=== PATIENT | female | born 1980 | race Caucasian/White ===

== ENCOUNTER 2019-12-11 09:03 | Outpatient (CLI) | payer OTHER, SELFPAY ==
--- NOTE | 2019-12-11 11:00 | NEURO_ITS ---
Patient Number: [id number] Impression: # Complains of numbness of arms and legs. # Normal nerve conduction study of upper and lower extremities. # Normal needle/EMG exam. # Clinical correlation recommended and possibility of higher involvement needs to be ruled out Nerve Conduction Studies Anti Sensory Summary Table Stim Site NR Peak (ms) P-T Amp (?V) Site1 Site2 Delta-P (ms) Dist (cm) Tomas (m/s) Left Median Anti Sensory (2-3nd Digit) Wrist 2.8 83.4 Wrist 2-3nd Digit 2.8 14.0 50 Wrist 2.6 92.7 Wrist 2-3nd Digit 2.8 14.0 50 Right Median Anti Sensory (2-3nd Digit) Wrist 2.6 57.9 Wrist 2-3nd Digit 2.6 14.0 54 Wrist 2.6 91.0 Wrist 2-3nd Digit 2.6 14.0 54 Left Radial Anti Sensory (Base 1st Digit) Wrist 2.1 23.9 Wrist Base 1st Digit 2.1 0.0 Right Radial Anti Sensory (Base 1st Digit) Wrist 2.3 28.1 Wrist Base 1st Digit 2.3 0.0 Left Sup Fibular Anti Sensory (Ant Lat Mall) 14 cm 3.4 40.1 14 cm Ant Lat Mall 3.4 16.0 47 Right Sup Fibular Anti Sensory (Ant Lat Mall) 14 cm 2.5 10.4 14 cm Ant Lat Mall 2.5 16.0 64 Left Sural Anti Sensory (Lat Mall) Calf 3.9 13.0 Calf Lat Mall 3.9 16.0 41 Right Sural Anti Sensory (Lat Mall) Calf 3.2 45.5 Calf Lat Mall 3.2 16.0 50 Left Ulnar Anti Sensory (5th Digit) Wrist 2.4 78.7 Wrist 5th Digit 2.4 14.0 58 Right Ulnar Anti Sensory (5th Digit) Wrist 2.3 49.9 Wrist 5th Digit 2.3 14.0 61 Motor Summary Table Stim Site NR Onset (ms) O-P Amp (mV) Site1 Site2 Delta-0 (ms) Dist (cm) Tomas (m/s) Left Median Motor (Abd Poll Brev) Wrist 2.6 3.9 Elbow Wrist 4.3 25.0 58 Elbow 6.9 3.9 Right Median Motor (Abd Poll Brev) Wrist 2.4 2.9 Elbow Wrist 4.2 25.0 60 Elbow 6.6 5.3 Left Peroneal Motor (Vastus Med) Ankle 4.7 2.5 Popit Ankle 6.8 33.0 49 Popit 11.5 2.4 Right Peroneal Motor (Vastus Med) Ankle 4.0 4.0 Popit Ankle 6.3 33.0 52 Popit 10.3 3.6 Left Tibial Motor (Abd Moore Brev) Ankle 4.4 7.6 Knee Ankle 7.6 35.0 46 Knee 12.0 6.0 Right Tibial Motor (Abd Moore Brev) Ankle 4.2 15.1 Knee Ankle 7.1 36.0 51 Knee 11.3 12.4 Left Ulnar Motor (Abd Dig Minimi) Wrist 2.5 6.5 A Elbow Wrist 4.4 26.0 59 A Elbow 6.9 5.3 Right Ulnar Motor (Abd Dig Minimi) Wrist 2.5 6.4 A Elbow Wrist 4.5 26.0 58 A Elbow 7.0 5.0 F Wave Studies NR F-Lat (ms) L-R F-Lat (ms) Left Median (Mrkrs) (Abd Poll Brev) 24.84 0.68 Right Median (Mrkrs) (Abd Poll Brev) 24.15 0.68 Left Peroneal (Mrkrs) (EDB) 41.38 2.78 Right Peroneal (Mrkrs) (EDB) 44.16 2.78 Left Tibial (Mrkrs) (Abd Hallucis) 42.43 0.18 Right Tibial (Mrkrs) (Abd Hallucis) 42.61 0.18 Left Ulnar (Mrkrs) (Abd Dig Min) 23.83 0.82 Right Ulnar (Mrkrs) (Abd Dig Min) 24.65 0.82 EMG Side Muscle Nerve Root Ins Act Fibs Amp Dur Recrt Comment Right 1stDorInt Ulnar C8-T1 Nml Nml Nml Nml Nml Right Ext Indicis Radial (Post Int) C7-8 Nml Nml Nml Nml Nml Right Ext Digitorum Radial (Post Int) C7-8 Nml Nml Nml Nml Nml Right BrachioRad Radial C5-6 Nml Nml Nml Nml Nml Right PronatorTeres Median C6-7 Nml Nml Nml Nml Nml Right Abd Poll Brev Median C8-T1 Nml Nml Nml Nml Nml Right AntTibialis D
== END 2019-12-11 09:04 | disposition home or self-care (01) ==
PROVIDERS: PCP Internal Medicine Gastroenterology; Visit Provider Psychiatry & Neurology Neurology
DX: R25.2 Cramp and spasm (principal)
CPT/HCPCS: 95886; 95913

== ENCOUNTER 2023-03-20 15:34 | Outpatient (CLI) | payer OTHER, SELFPAY ==
[2023-03-20 16:24] LABS: Basophils Absolute Auto 0.1 K/mm3 (0.0-0.1); Basophils Percent Auto 1.2 % (0.2-1.2); Eosinophils Absolute Auto 0.1 K/mm3 (0-0.3); Eosinophils Percent Auto 1.2 % (0-4.4); Hematocrit 44.3 % (37.0-47.0); Hemoglobin 14.7 g/dL (12.0-15.0); Immature Granulocyte Absolute 0.02 K/mm3 (0.00-0.031); Immature Granulocyte Percent A 0.3 % (0-0.5); Lymphocytes Absolute Auto 1.95 K/mm3 (0.9-3.2); Lymphocytes Percent Auto 28.6 % (18.3-44.2); Mean Corpuscular HGB Conc 33.2 g/dl (32-36); Mean Corpuscular Hemoglobin 28.9 pg (26-34); Mean Corpuscular Volume 87.2 fl (80-100); Mean Platelet Volume 10.3 fl (7.4-10.4); Monocytes Absolute Auto 0.5 K/mm3 (0.1-0.6); Monocytes Percent Auto 6.9 % (2.6-8.5); Neutrophils Absolute Auto 4.2 K/mm3 (1.3-6.7); Neutrophils Percent Auto 61.8 % (45.5-73.1); Platelet Count Result 284 k/mm3 (150-375); Red Blood Count 5.08 M/mm3 (4.2-5.4); Red Cell Distribution Width 11.6 % (11.5-14.5); White Blood Count 6.8 K/mm3 (4.5-10.0)
[2023-03-20 16:37] LABS: Alanine Aminotransferase 24 U/L (6-35); Albumin Level 4.6 g/dL (3.5-5.1); Alkaline Phosphatase 72 U/L (38-126); Anion Gap 6 mmol/L (8-16); Aspartate Amino Transferase 24 U/L (14-36); Bilirubin,Total 0.5 mg/dL (0.2-1.3); Blood Urea Nitrogen 13 mg/dL (7-17); Carbon Dioxide 30 mmol/L (22-30); Chloride 103 mmol/L (98-107); Estimated Glomerular Filt Rate 60; Glucose 101 mg/dL (65-110); Potassium 4.3 mmol/L (3.4-5.0); Sodium 139 mmol/L (137-145)
[2023-03-20 17:42] LABS: Folic Acid 4.4 ng/mL (2.76->20)
[2023-03-20 18:20] LABS: Iron 96 ug/dL (37-170)
[2023-03-20 18:30] LABS: Percent Iron Saturation 30 % (20-50)
[2023-03-23 10:37] LABS: Methylmalonic Acid 115 nmol/L (87-318)
[2023-03-24 18:05] LABS: Soluble Transferrin Receptor 0.98 mg/L (0.76-1.76)
== END 2023-03-20 15:35 | disposition home or self-care (01) ==
PROVIDERS: Nurse Practitioner Family; PCP Internal Medicine Gastroenterology; Visit Provider Internal Medicine Hematology & Oncology
DX: D50.8 Other iron deficiency anemias (principal)
CPT/HCPCS: 36415; 80053; 82607; 82728; 82746; 83540; 83550; 83921; 84238; 85025

== ENCOUNTER 2023-04-10 12:46 | Outpatient (CLI) | payer OTHER, SELFPAY ==
--- NOTE | ~2023-04-10 | MMUS_ITS ---
EXAMINATION: MM diagnostic isiah BI w mikie, US breast RT limited HISTORY: Multiple cysts of the breast with pain in the upper outer quadrant of the right breast TECHNIQUE: Craniocaudal, mediolateral, and mediolateral oblique 3-D tomosynthesis images of the karis ts were performed and synthetic 2-D images were generated. CAD analysis was submitted and interpreted . High resolution limited right breast ultrasound was performed. COMPARISON: 12/14/2022 BREAST PARENCHYMAL COMPOSITION: The breasts are heterogeneously dense, which may obscure small masses . FINDINGS: MAMMOGRAPHIC FINDINGS: Multiple bilateral breast masses are again seen which have the appearance of a waxing and waning cyst s. Multiple masses are present in the area of palpable concern in the right breast. One is a 4.2 cm s imilar appearing cyst. There is a 1.5 x 1.1 cm obscured, equal density mass in the posterior third of the outer breast at the 9:00 location adjacent to the large cyst which appears new since the compari son examination. In addition, obscured, oval, equal density mass lesion posterior third breast 5 cm ULTRASOUND: There is a 3.8 cm cyst at the 10:00 location, 3 cm from the nipple. An adjacent 1.5 cm cyst is noted at the 10:00 location, 5 cm from the nipple. There are adjacent cysts at the 10:00 location 7 cm from the nipple measuring 1.7 cm and 1.0 cm. IMPRESSION: 1. Multiple cysts of the breasts including enlarging cysts of the upper outer right breast correspond ing to area of pain. Further evaluation at this time should be based on clinical assessment. Continue d follow-up physical examination is recommended. 2. Recommend routine screening mammography in one year. BI-RADS Category 2: Benign finding(s). Reviewed, dictated and finalized at location A. GER COPY IMPRESSION: 1. Multiple cysts of the breasts including enlarging cysts of the upper outer r ight breast corresponding to area of pain. Further evaluation at this time shou ld be based on clinical assessment. Continued follow-up physical examination is recommended. 2. Recommend routine screening mammography in one year. BI-RADS Category 2: Benign finding(s).
== END 2023-04-10 12:47 | disposition home or self-care (01) ==
PROVIDERS: PCP Internal Medicine Gastroenterology; Visit Provider Nurse Practitioner Family
DX: N60.12 Diffuse cystic mastopathy of left breast (principal); N60.11 Diffuse cystic mastopathy of right breast
CPT/HCPCS: 76642; 77062; 77066; G0279

== ENCOUNTER 2023-06-07 13:14 | Outpatient (CLI) | payer OTHER, SELFPAY ==
[2023-06-07 13:34] LABS: Basophils Absolute Auto 0.1 K/mm3 (0.0-0.1); Eosinophils Absolute Auto 0.1 K/mm3 (0-0.3); Eosinophils Percent Auto 1.2 % (0-4.4); Hematocrit 44.4 % (37.0-47.0); Hemoglobin 15.3 g/dL (12.0-15.0); Immature Granulocyte Absolute 0.05 K/mm3 (0.00-0.031); Immature Granulocyte Percent A 0.6 % (0-0.5); Lymphocytes Absolute Auto 1.98 K/mm3 (0.9-3.2); Lymphocytes Percent Auto 24.5 % (18.3-44.2); Mean Corpuscular HGB Conc 34.5 g/dl (32-36); Mean Corpuscular Volume 87.1 fl (80-100); Monocytes Absolute Auto 0.5 K/mm3 (0.1-0.6); Monocytes Percent Auto 6.3 % (2.6-8.5); Neutrophils Absolute Auto 5.4 K/mm3 (1.3-6.7); Neutrophils Percent Auto 66.4 % (45.5-73.1); Platelet Count Result 367 k/mm3 (150-375); Red Cell Distribution Width 12.7 % (11.5-14.5); White Blood Count 8.1 K/mm3 (4.5-10.0)
[2023-06-07 18:41] LABS: Anion Gap 7 mmol/L (8-16); Blood Urea Nitrogen 12 mg/dL (7-17); Calcium 9.7 mg/dL (8.4-10.2); Carbon Dioxide 27 mmol/L (22-30); Chloride 105 mmol/L (98-107); Estimated Glomerular Filt Rate > 60; Glucose 108 mg/dL (65-110); Potassium 4.3 mmol/L (3.4-5.0); Sodium 139 mmol/L (137-145)
[2023-06-07 18:44] LABS: Iron 73 ug/dL (37-170)
[2023-06-07 18:57] LABS: Percent Iron Saturation 21 % (20-50)
[2023-06-07 19:46] LABS: Folic Acid 5.9 ng/mL (2.76->20)
== END 2023-06-07 13:15 | disposition home or self-care (01) ==
LOC: ANHLAB 13:15
PROVIDERS: Nurse Practitioner Family; PCP Internal Medicine Gastroenterology; Visit Provider Internal Medicine Hematology & Oncology
DX: R79.0 Abnormal level of blood mineral (principal); D64.9 Anemia, unspecified
CPT/HCPCS: 36415; 80048; 82607; 82728; 82746; 83540; 83550; 85025

== ENCOUNTER 2023-07-20 18:44 | Emergency (ER) | payer OTHER, SELFPAY ==
[2023-07-20] VITALS (7 sets, daily range): BP systolic 108–138; BP diastolic 79–117; PULSE 77–101; RESP 9–19; TEMP 36.7; O2SAT 96–99
--- NOTE | ~2023-07-20 | CT_ITS ---
EXAMINATION: CT abdomen pelvis w con DATE: 07/20/2023 21:07 INDICATION: Epigastric abdominal pain. TECHNIQUE: Computed tomography (CT) of the abdomen and pelvis was performed with 100 mL Omnipaque 350 intravenous contrast. Automated exposure control and iterative reconstruction technique were employe d. The dose-length product was 219.45 mGy-cm. COMPARISON: None. FINDINGS: The visualized portions of the lung bases demonstrate mild atelectasis in right middle lobe . No pleural effusion. The heart size is normal. No pericardial effusion. The liver and spleen are no rmal. There are changes of cholecystectomy. The pancreas, adrenal glands, and kidneys are normal. The re are no dilated loops of bowel. The appendix is normal. There is liquid stool in the colon suggesti ng diarrhea. There are no pathologically enlarged lymph nodes. There is no free intraperitoneal fluid . There is moderate lower lumbar spondylosis. IMPRESSION: 1. No specific etiology for the patient's symptoms. Reviewed, dictated and finalized at location E.
[2023-07-20] MEDS: SODIUM CHLORIDE 0.9% IV 2,000 ML 999 ML IV CONT (20:03)
[2023-07-20] MEDS: ONDANSETRON INJ 4 MG/2 ML VIAL IV PUSH (20:04)
[2023-07-20 20:05] LABS: Basophils Absolute Auto 0.1 K/mm3 (0.0-0.1); Basophils Percent Auto 1.1 % (0.2-1.2); Eosinophils Percent Auto 0.4 % (0-4.4); Hematocrit 43.2 % (37.0-47.0); Hemoglobin 14.5 g/dL (12.0-15.0); Immature Granulocyte Absolute 0.03 K/mm3 (0.00-0.031); Immature Granulocyte Percent A 0.4 % (0-0.5); Lymphocytes Absolute Auto 1.42 K/mm3 (0.9-3.2); Lymphocytes Percent Auto 17.6 % (18.3-44.2); Mean Corpuscular HGB Conc 33.6 g/dl (32-36); Mean Corpuscular Hemoglobin 29.6 pg (26-34); Mean Corpuscular Volume 88.2 fl (80-100); Mean Platelet Volume 10.6 fl (7.4-10.4); Monocytes Absolute Auto 0.6 K/mm3 (0.1-0.6); Monocytes Percent Auto 7.2 % (2.6-8.5); Neutrophils Absolute Auto 5.9 K/mm3 (1.3-6.7); Neutrophils Percent Auto 73.3 % (45.5-73.1); Platelet Count Result 330 k/mm3 (150-375); Red Cell Distribution Width 12.3 % (11.5-14.5); White Blood Count 8.1 K/mm3 (4.5-10.0)
[2023-07-20 20:14] LABS: Alanine Aminotransferase 26 U/L (6-35); Albumin Level 4.1 g/dL (3.5-5.1); Alkaline Phosphatase 58 U/L (38-126); Anion Gap 3 mmol/L (4-12); Aspartate Amino Transferase 31 U/L (14-36); Bilirubin,Total 0.3 mg/dL (0.2-1.3); Blood Urea Nitrogen 8 mg/dL (7-17); Calcium 9.5 mg/dL (8.4-10.2); Carbon Dioxide 29 mmol/L (22-30); Chloride 109 mmol/L (98-107); Estimated CRCL calculation 62 ml/min; Estimated Glomerular Filt Rate > 60; Glucose 136 mg/dL (65-110); Lipase 58 U/L (23-300); Potassium 3.8 mmol/L (3.4-5.0); Sodium 141 mmol/L (137-145)
--- NOTE | 2023-07-20 21:27 | ED.ABDPAIN ---
HPI - Abdominal Pain General Chief Complaint: Abdominal Pain Stated Complaint: constipation Time Seen by Provider: 07/20/23 18:57 History of Present Illness HPI narrative: This is a 42-year-old female, with history of cholecystectomy, who presents to the emergency department complaining of burning epigastric abdominal pain, some vomiting and loose stools with a past day. The patient states she had been previously constipated for the past 6 days. She tried MiraLax twice a day, senna and today added magnesium citrate. She began having multiple bowel movements without any blood. She states she also drank a spicy chicken soup that led to epigastric burning radiating to the back and some vomiting. She denies any known sick contacts or recent travel. She has no other complaints today. Related Data Allergies Allergy/AdvReac Type Severity Reaction Status Date / Time hydromorphone [From Dilaudid] Allergy Palpitation Verified 07/20/23 19:01 s pravastatin Allergy Palpitation Verified 07/20/23 19:01 s Review of Systems Review of Systems: CONSTITUTIONAL: Denies fever, chills, or sweats. ENT: Denies rhinorrhea, congestion, sore throat, or otalgia. CARDIOVASCULAR: Denies chest pain, palpitations, or edema. RESPIRATORY: Denies cough or dyspnea. GASTROINTESTINAL: Burning epigastric abdominal pain, nausea, nonbloody vomiting and nonbloody loose stools GENITOURINARY: Status post hysterectomy. Denies dysuria or hematuria. SKIN: Denies rash or itching. MUSCULOSKELETAL: Denies back pain, joint pain, or myalgia. NEUROLOGIC: Denies headache, numbness, dizziness, or weakness. PSYCHIATRIC: Denies anxiety or depression. [facility] Past Medical History Medical History (Updated 07/20/23 @ 21:32 by Rashard Gordon MD) Asthma GERD (gastroesophageal reflux disease) IBS (irritable bowel syndrome) Surgical History Surgical History (Updated 07/20/23 @ 21:32 by Rashard Gordon MD) History of left oophorectomy History of partial hysterectomy Family History Family History Other Depression Anxiety Heart disease Grandparent Depression Anxiety Heart disease Grandparent Cerebrovascular accident Social History Social History Smoking status: Current some day smoker Tobacco type: e-cigarettes/vaping Do You Feel Safe in your Home?: Yes Lack of Transportation: No Lack of Food: Never True Current Housing: I Have Housing Concerned About Future Housing: No Difficulty Paying Gas/Electric Bills: No Difficulty Paying for Meds: No Currently Unemployed: No Education: High School Diploma/GED Difficulty w/ Childcare or Family Care: No Exam Narrative: GENERAL: Well-developed, well-nourished, and in no acute distress. HEAD: Normocephalic, atraumatic. EYES: PERRLA and EOMI. CHEST: Clear to auscultation. No respiratory distress. No wheezes rales or rhonchi HEART: Regular rate and rhythm. No murmur heard. Normal peripheral pulses. ABDOMEN: Soft, mild epigastric tenderness to palpation, without rebound or guarding, nondistended, normal active bowel sounds. EXTREMITIES: Normal range of motion. No edema. SKIN: Warm, dry, no rash. NEURO: Alert and oriented x3. No focal deficit. Moving all 4 limbs spontaneously PSYCH: Normal mood and affect. Course Course Emergency Course: 21:30 - CBC unremarkable, CMP unremarkable. Lipase negative. CT abdomen pelvis negative for acute intra-abdominal process. On re-evaluation, the patient states she feels somewhat nauseous after contrast administration (a previous 6. Stress bones). She overall feels slightly improved. Will try GI cocktail, p.o. challenge with plan for discharge. I advised the patient to hold medications for constipation at this time follow up with primary care doctor. 21:39 - The patient states she felt improvement with GI cocktail and requests
[2023-07-20] MEDS: BELLADONNA ALK/PHENOB ELIX 10 ML, MAG HYDROX/ALUMINUM HYD/SIMETH 30 ML, LIDOCAINE HCL 2... PO (21:31)
== END 2023-07-20 21:50 | disposition home or self-care (01) ==
PROVIDERS: Emergency Provider Preventive Medicine Aerospace Medicine; PCP Internal Medicine Gastroenterology
DX: K52.9 Noninfective gastroenteritis and colitis, unspecified (principal); T50.905A Adverse effect of unspecified drugs, medicaments and biological substances, initial encounter; J45.909 Unspecified asthma, uncomplicated; K21.9 Gastro-esophageal reflux disease without esophagitis; K58.9 Irritable bowel syndrome, unspecified; F17.290 Nicotine dependence, other tobacco product, uncomplicated; Z90.49 Acquired absence of other specified parts of digestive tract; Z90.721 Acquired absence of ovaries, unilateral; Z90.711 Acquired absence of uterus with remaining cervical stump
CPT/HCPCS: 36415; 74177; 80053; 83690; 85025; 96361; 96374; 99284; A9270; J2405; J7030; Q9967

== ENCOUNTER 2023-08-03 12:38 | Outpatient (CLI) | payer OTHER, SELFPAY ==
--- NOTE | 2023-08-03 12:44 | ECG_ITS ---
SEE SCANNED COPY FOR CONFIRMED REPORT MTDD
== END 2023-08-03 12:39 | disposition home or self-care (01) ==
LOC: ANHSURGERY 12:43
PROVIDERS: PCP Family Medicine; Visit Provider Obstetrics & Gynecology
DX: Z72.0 Tobacco use (principal); Z01.818 Encounter for other preprocedural examination
CPT/HCPCS: 36415; 86850; 86900; 86901; 93005

== ENCOUNTER 2023-08-09 01:25 | Day surgery (SDC) | payer OTHER, SELFPAY ==
[2023-08-02 10:37] VITALS: BMI 24.5
--- NOTE | 2023-08-02 10:38 | PC.NURSE ---
Addendum entered by Makayla Ordonez RN 08/03/23 09:59: Pt instructed to skip morning dose of Ibsrela day of surgery. Original Note: Report to the Outpatient Waiting Room, entrance under the green pavilion located off [facility], at 0600 on 08-09-23. Planned Procedure Time: 07. Time changes happen often and if your time is changed the preop area will call you the afternoon before. - You and your visitor will be asked to self-screen and do not enter if you have any COVID symptoms. - A mask is optional within the hospital at this time. Patients may have clear liquids (water, carbonated beverages, clear teas, apple juice) until 3 hours prior to surgery with a maximum of 20 ounces. 0730 - No food from midnight until time of surgery - Infants may have breast milk until 4 hours before surgery, infant formula 6 hours prior to surgery. - Children will be allowed to drink immediately following surgery. If applicable, please bring a bottle or sippy cup to assist with drinking. Juice, water, soda, and popsicles are readily available. For infants on formula, please bring formula the day of surgery. Pacifiers are allowed. Take the following medications with a SIP of water the morning of surgery: Ibsrela Bring Albuterol inhaler to the hospital DOS DO NOT STOP ANY OF YOUR OTHER PRESCRIPTION MEDICATIONS PRIOR TO SURGERY ?EXCEPT THE FOLLOWING Medications to discontinue per physician: vitamins and supplements Date to take last dose: 08-06-23 Please no make-up, nail egyptian, hairspray, perfume, deodorant, or body powder the day of surgery. No jewelry (including any body piercings) or valuables the day of surgery, leave them at home. Please take a shower or bath the night before, or the morning of, surgery with an antibacterial soap. Wear comfortable, loose fitting clothing. Children are encouraged to wear pajamas. - Jewelry must be removed prior to entering the operating room. Rings and piercings that are not removed may be cut off. - The hospital will not accept responsibility for valuables. - Please leave all valuables, including medications, at home the day of surgery. If you are going home after surgery, a licensed feeder driver must drive you home. - NO public transportation without another adult if you receive anesthesia. - We recommend that an adult stay with you for 24 hours following discharge. - We also recommend that you do not drive, make important decision, drink alcoholic beverages, or take any drugs that were not prescribed by your health care provider for at least 24 hours after your discharge time. For Pediatric surgeries, we recommend two adults accompany the child home. Follow any additional instructions given to you from your surgeon. If you or anyone in your household have experienced Covid symptoms in the past week, please notify your surgeon or the nurse liaison at the phone number below for possible testing. Telephone instructions given to Tootie Gleason and asked if any additional questions and then verbalized understanding. Patient advised to call surgeon office or pre surgery nurse liaison [phone] if any additional questions.
--- NOTE | 2023-08-07 06:40 | PM.IMHP ---
H&P: HPI History of Present Illness Date/Time: 08/07/23 06:40 Chief Complaint: In cyst left-sided pain Narrative: 42-year-old female with significant left-sided pain. Still has right ovary had severe pain on left she will undergo laparoscopic os could be with salpingo-oophorectomy risks and benefits reviewed including but not exclusive of , aspiration, bleeding, transfusion, perforation injury to bowel, bladder, ureters, or other internal organs with the need for open laparotomy. She had all questions answered. She received the [employer] handout entitled laparoscopy. She asked to proceed she is status post hysterectomy a cholecystectomy [facility] Past Medical History Medical History Asthma GERD (gastroesophageal reflux disease) IBS (irritable bowel syndrome) Surgical History Surgical History History of left oophorectomy History of partial hysterectomy Family History Family History Other Depression Anxiety Heart disease Grandparent Depression Anxiety Heart disease Grandparent Cerebrovascular accident Social History Social History Smoking packs per day: 1 Smoking cigarettes per day: 20.0 Years smoked: 22 Smoking pack-years: 22.00 Smoking status: Current every day smoker Tobacco type: cigarettes and e-cigarettes/vaping Second hand tobacco smoke exposure: No Alcohol intake: never Substance use: never Substance use type: does not use Do You Feel Safe in your Home?: Yes Lack of Transportation: No Lack of Food: Never True Current Housing: I Have Housing Concerned About Future Housing: No Difficulty Paying Gas/Electric Bills: No Difficulty Paying for Meds: No Currently Unemployed: No Education: High School Diploma/GED Difficulty w/ Childcare or Family Care: No Living arrangements: with family Spiritual care concerns: No Meds Home Medications and Allergies Home Medications Medication Instructions Recorded Confirmed Type L.acidoph,rhamnosus-B.infantis,longum 1 cap PO DAILY 08/02/23 08/02/23 History 2 billion cell sprinkle capsule (Digestive Probiotic) albuterol sulfate 90 mcg/actuation 2 puff inhalation PRN PRN 08/02/23 08/02/23 History aerosol inhaler Shortness Of Breath Or Wheezing digestive enzymes 1 cap PO DAILY 08/02/23 08/02/23 History esomeprazole magnesium 20 mg 20 mg PO DAILY 08/02/23 08/02/23 History capsule,delayed release (Nexium) mometasone 0.1 % topical solution 2 applic topical PRN 08/02/23 08/02/23 History polyethylene glycol 3350 17 17 g PO DAILY PRN Constipation 08/02/23 08/02/23 History gram/dose oral powder (Miralax) psyllium husk 0.4 gram capsule 0.4 g PO DAILY 08/02/23 08/02/23 History (Daily Fiber) tenapanor 50 mg tablet (Ibsrela) 50 mg PO BID 08/02/23 08/02/23 History Allergies Allergy/AdvReac Type Severity Reaction Status Date / Time hydromorphone [From Dilaudid] Allergy Mild Palpitation Verified 08/02/23 09:28 s pravastatin Allergy Mild Palpitation Verified 08/02/23 09:28 s Exam Const: General: cooperative, healthy appearing and comfortable Nutritional Appearance: average body habitus Orientation/consciousness: oriented to person, oriented to place and oriented to time Resp: Effort & Inspection: normal respiratory effort Cardio: Rate: regular rate Rhythm: regular rhythm Heart sounds: S1 normal heart sound present and S2 normal heart sound present GI: Inspection: normal to inspection : External Female Exam: normal external appearance Speculum Exam - Vagina: normal appearance of the vagina Speculum Exam - Cervix: Cervix absent Bimanual exam- vagina & uterus: uterus absent Bimanual Exam- Adnexa, other: Adnexal mass present on the left tender Assessment and
[2023-08-09] VITALS (10 sets, daily range): BP systolic 102–134; BP diastolic 59–85; PULSE 65–81; RESP 15–18; TEMP 36.1–36.3; O2SAT 95–100
--- NOTE | 2023-08-09 06:25 | WPDHPUPDATE1 ---
History and Physical Update Update Date/Time: 08/09/23 06:25 History and Physical has been reviewed, including an updated exam of the patient. There are NO changes in the patient's condition. Risks, benefits, and alternatives have been discussed and questions answered. Patient agrees to proceed with procedure.
--- NOTE | 2023-08-09 06:46 | WPDANESEPPF ---
Anes - Initial Pre Proc Eval Procedure: Operation Date: 08/09/23 07:30 Proposed Procedures p Laparoscopic Left Salpingo oophorectomy - Randy Banks MD Date/Time: 08/09/23 06:46 Surgeon: Randy Banks MD Pre Op Diagnosis: irregular bleeding, pelvic pain Patient Data Age: 42 Gender: F Height: 1.57 m Weight: 60.78 kg Allergies Allergy/AdvReac Type Severity Reaction Status Date / Time hydromorphone [From Dilaudid] Allergy Mild Palpitation Verified 08/02/23 09:28 s pravastatin Allergy Mild Palpitation Verified 08/02/23 09:28 s Home Medications Medication Instructions Recorded Confirmed Type L.acidoph,rhamnosus-B.infantis,longum 1 cap PO DAILY 08/02/23 08/02/23 History 2 billion cell sprinkle capsule (Digestive Probiotic) albuterol sulfate 90 mcg/actuation 2 puff inhalation PRN PRN 08/02/23 08/02/23 History aerosol inhaler Shortness Of Breath Or Wheezing digestive enzymes 1 cap PO DAILY 08/02/23 08/02/23 History esomeprazole magnesium 20 mg 20 mg PO DAILY 08/02/23 08/02/23 History capsule,delayed release (Nexium) mometasone 0.1 % topical solution 2 applic topical PRN 08/02/23 08/02/23 History polyethylene glycol 3350 17 17 g PO DAILY PRN Constipation 08/02/23 08/02/23 History gram/dose oral powder (Miralax) psyllium husk 0.4 gram capsule 0.4 g PO DAILY 08/02/23 08/02/23 History (Daily Fiber) tenapanor 50 mg tablet (Ibsrela) 50 mg PO BID 08/02/23 08/02/23 History hydrocodone 5 mg-acetaminophen 325 1 tablet PO Q4H PRN pain #20 tabs 08/09/23 Rx mg tablet Patient hx anesthesia problems: none Family hx anesthesia problems: none Results Review: All pre-operative results and documents have been reviewed as part of the pre-operative evaluation. [facility] Past Medical History Medical History (Updated 08/09/23 @ 06:47 by Randy Ayoub MD) Anxiety Asthma Fibromyalgia GERD (gastroesophageal reflux disease) IBS (irritable bowel syndrome) SELINA (obstructive sleep apnea) Surgical History Surgical History History of left oophorectomy History of partial hysterectomy Family History Family History Other Depression Anxiety Heart disease Grandparent Depression Anxiety Heart disease Grandparent Cerebrovascular accident Social History Social History Smoking packs per day: 1 Smoking cigarettes per day: 20.0 Years smoked: 22 Smoking pack-years: 22.00 Smoking status: Current every day smoker Tobacco type: cigarettes and e-cigarettes/vaping Second hand tobacco smoke exposure: No Alcohol intake: never Substance use: never Substance use type: does not use Do You Feel Safe in your Home?: Yes Lack of Transportation: No Lack of Food: Never True Current Housing: I Have Housing Concerned About Future Housing: No Difficulty Paying Gas/Electric Bills: No Difficulty Paying for Meds: No Currently Unemployed: No Education: High School Diploma/GED Difficulty w/ Childcare or Family Care: No Living arrangements: with family Spiritual care concerns: No Anes - Eval Final PreProcedure Day of Procedure 08/09/23 06:46 Patient weight: normal Heart: regular rate and rhythm Lungs: clear to auscultation Airway: Mallampati scale class II Neurological: alert and oriented Last oral intake: >/= 8 hours ASA classification: III Emergent: no Anesthetic plan: proceed Anesthesia type and monitoring: general ETT and standard monitoring Results Review: All pre-operative results and documents have been reviewed as part of the pre-operative evaluation. Informed Consent: The patient's anesthetic plan and its attendant risks and benefits were discussed with the patient/family/POA. Questions were solicited and answers provided to the satisfaction of the patient/family/PO
[2023-08-09] MEDS: LACTATED RINGERS 1,000 ML 30 ML IV CONT ×2 (07:00→08:31)
[2023-08-09] MEDS: KETOROLAC 15 MG/ML VIAL (*BKC) IV PUSH (07:00)
[2023-08-09] MEDS: ACETAMINOPHEN 500 MG TABLET 1000 MG PO (07:00)
--- NOTE | 2023-08-09 07:51 | SUR.PREOP ---
ATTEMPTS X2 FOR IV. UNABLE TO DRAWN CONF TYPE PREOP
--- NOTE | 2023-08-09 07:54 | W.PM.PROC2 ---
Procedure Note - Detailed Date of Procedure 08/09/23 Pre-op Diagnosis g, pelvic pain Post-op Diagnosis Other (Left ovarian cyst pelvic) Procedure Performed laparoscopic left oophorectomy adhesions Surgeon Randy Banks MD Anesthesia General Indications 42 year left ovarian cyst Findings large left ovarian cyst. Adhesions Description of Procedure patient was prepped draped in sterile fashion placed dorsal lithotomy position. Excellent general trach anesthesia placed in posterior fornix of vagina. Sponge stick placed in vagina and the bladder drained of clear urine. The weighted speculum was removed and the gloves were changed. A supraumbilical incision made the Veress needle passed in the abdomen. Abdomen filled with CO2 gas to 15 of. 5Mm trocar advanced under direct visualization assuring injury. Patient placed in Trendelenburg and a suprapubic incision made. 5Mm trocar advanced under direct visualization assuring injury. A left lower quadrant incision made 10mm trocar advanced under direct visualization assuring injury. Multiple adhesions were seen photo documentation undertaken. Adhesional lysis was undertaken by using sharp dissection well keeping the adhesions on tension. A large left ovarian cyst was seen. The LigaSure was then entered through the left lower quadrant and placed twice over the infundibulopelvic structure. This was placed in Endo-Catch and passed through the left lower quadrant. Irrigation undertaken until clear and no other abnormalities were seen. Photo documentation of water appendix were also undertaken. Lower sites removed. The gas removed from the abdomen. The upper site removed the incisions closed with 4 Monocryl glue. Patient was awakened went recovery in satisfactory condition. All sponge, needle, instrument counts were correct. There were no immediate complications Estimated Blood Loss 5 Drains No Packing No Pathology Yes Complications No immediate complications Condition Stable Disposition PACU
[2023-08-09] MEDS: fentaNYL CITRATE INJ (*CRX) 100 MCG/2 ML VIAL 25 MCG IV PUSH ×4 (08:23→08:36)
[2023-08-09] MEDS: ONDANSETRON INJ 4 MG/2 ML VIAL IV PUSH (08:42)
[2023-08-09] MEDS: MIDAZOLAM HCL (*CRX) 2 MG/2 ML VIAL 1 MG IV PUSH (08:58)
[2023-08-09] MEDS: oxyCODONE HCL (*CRX) 5 MG TAB IR PO (09:45)
== END 2023-08-09 10:48 | disposition home or self-care (01) ==
PROVIDERS: PCP Family Medicine; Visit Provider Obstetrics & Gynecology
PROC: (CPT 49320; principal; 2023-08-09 07:30)
DX: D27.1 Benign neoplasm of left ovary (principal); N83.12 Corpus luteum cyst of left ovary; D28.2 Benign neoplasm of uterine tubes and ligaments; J45.909 Unspecified asthma, uncomplicated; K21.9 Gastro-esophageal reflux disease without esophagitis; K58.9 Irritable bowel syndrome, unspecified; F41.9 Anxiety disorder, unspecified; G47.33 Obstructive sleep apnea (adult) (pediatric); F17.210 Nicotine dependence, cigarettes, uncomplicated; Z79.51 Long term (current) use of inhaled steroids; Z79.891 Long term (current) use of opiate analgesic; Z98.890 Other specified postprocedural states; Z82.49 Family history of ischemic heart disease and other diseases of the circulatory system
CPT/HCPCS: 58661; 88305; A9270; J1100; J1885; J2250; J2405; J3010; J7030; J7120

== ENCOUNTER 2023-09-10 02:01 | Emergency (ER) | payer OTHER, SELFPAY ==
--- NOTE | ~2023-09-10 | XR_ITS ---
Portable chest x-ray Comparison: None Clinical History: Chest pain Findings: Lungs are clear, without focal consolidation or pleural effusion. Cardiomediastinal silho uette is unremarkable. Bones and soft tissues are unremarkable. Impression: Normal chest. Reviewed, dictated and finalized at location M. Impression: Normal chest.
[2023-09-10 02:08] VITALS: BP 138/92; PULSE 96; RESP 18; TEMP 36.8; O2SAT 100
--- NOTE | 2023-09-10 02:26 | ED.GENADULT ---
HPI - General Adult General Chief complaint: Unspecified Stated complaint: multiple complaints Time Seen by Provider: 09/10/23 02:09 History of Present Illness HPI narrative: Patient states that she has had chronic GI issues for years for which she sees a GI doctor, has also tried multiple probiotics, has taken Nexium daily but still feels queasy every time she eats. Her GI doctor is out on maternity leave. She feels like there is a pain that is in her epigastric abdomen and that sometimes goes to her chest, and she is worried about her heart Related Data Home Medications Medication Instructions Recorded Confirmed L.acidoph,rhamnosus-B.infantis,longum 1 cap PO DAILY 08/02/23 08/09/23 2 billion cell sprinkle capsule (Digestive Probiotic) albuterol sulfate 90 mcg/actuation 2 puff inhalation PRN PRN 08/02/23 08/09/23 aerosol inhaler Shortness Of Breath Or Wheezing digestive enzymes 1 cap PO DAILY 08/02/23 08/09/23 esomeprazole magnesium 20 mg 20 mg PO DAILY 08/02/23 08/09/23 capsule,delayed release (Nexium) mometasone 0.1 % topical solution 2 applic topical PRN 08/02/23 08/09/23 polyethylene glycol 3350 17 17 g PO DAILY PRN Constipation 08/02/23 08/09/23 gram/dose oral powder (Miralax) psyllium husk 0.4 gram capsule 0.4 g PO DAILY 08/02/23 08/09/23 (Daily Fiber) tenapanor 50 mg tablet (Ibsrela) 50 mg PO BID 08/02/23 08/09/23 Allergies Allergy/AdvReac Type Severity Reaction Status Date / Time hydromorphone [From Dilaudid] Allergy Mild Palpitation Verified 09/10/23 02:13 s pravastatin Allergy Mild Palpitation Verified 09/10/23 02:13 s Review of Systems Review of Systems: All systems reviewed & are unremarkable except as noted in HPI and below PMFSH Past Medical History Medical History (Updated 09/10/23 @ 04:15 by Ofelia Giordano MD) Anxiety Asthma Fibromyalgia GERD (gastroesophageal reflux disease) IBS (irritable bowel syndrome) SELINA (obstructive sleep apnea) Surgical History Surgical History History of left oophorectomy History of partial hysterectomy Family History Family History Other Depression Anxiety Heart disease Grandparent Depression Anxiety Heart disease Grandparent Cerebrovascular accident Social History Social History Smoking packs per day: 1 Smoking cigarettes per day: 20.0 Years smoked: 22 Smoking pack-years: 22.00 Smoking status: Current every day smoker Tobacco type: cigarettes and e-cigarettes/vaping Second hand tobacco smoke exposure: No Alcohol intake: never Substance use: never Substance use type: does not use Do You Feel Safe in your Home?: Yes Lack of Transportation: No Lack of Food: Never True Current Housing: I Have Housing Concerned About Future Housing: No Difficulty Paying Gas/Electric Bills: No Difficulty Paying for Meds: No Currently Unemployed: No Education: High School Diploma/GED Difficulty w/ Childcare or Family Care: No Living arrangements: with family Spiritual care concerns: No Exam Narrative: EXAMINATION OF ORGAN SYSTEMS/BODY AREAS: Constitutional: Vital signs per nursing GENERAL:[No acute distress, non-toxic appearing.] HEAD: Normal with no signs of head trauma. EYES: EOMI, conjunctiva normal ENT: Hearing grossly intact LUNGS: Nonlabored breathing. HEART: [Regular rate and rhythm] ABD: [Soft], [nontender to palpation] EXT: Normal range of motion SKIN: [No rashes or lesions.] NEURO: [Alert and oriented x 3. No gross focal sensory or strength deficits.] PSYCH: Normal affect Course Vital Signs Vital signs: Vital Signs Temperature 98.2 F 09/10/23 02:08 Pulse Rate 96 09/10/23 02:08 Respiratory Rate 18 09/10/23 02:08 Blood Pressure 138/92 H 09/10/23 02:08 Pulse Oximetry 100 09/10/23 02:08
--- NOTE | 2023-09-10 02:36 | ECG_ITS ---
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 Measurements Intervals [place] Rate: 65 P: 66 SD: 128 QRS: 87 QRSD: 81 T: 68 QT: 382 QTc: 398 Interpretive Statements SINUS RHYTHM NORMAL ELECTROCARDIOGRAM No previous ECG available for comparison Electronically Signed On 09-10-2023 08:13:36 CDT by Roosevelt Whipple M.D.
[2023-09-10 02:55] LABS: Basophils Percent Auto 0.3 % (0.2-1.2); Hematocrit 42.5 % (37.0-47.0); Hemoglobin 14.6 g/dL (12.0-15.0); Immature Granulocyte Absolute 0.04 K/mm3 (0.00-0.031); Immature Granulocyte Percent A 0.3 % (0-0.5); Lymphocytes Absolute Auto 1.57 K/mm3 (0.9-3.2); Lymphocytes Percent Auto 13.6 % (18.3-44.2); Mean Corpuscular HGB Conc 34.4 g/dl (32-36); Mean Corpuscular Hemoglobin 29.7 pg (26-34); Mean Corpuscular Volume 86.4 fl (80-100); Mean Platelet Volume 10.7 fl (7.4-10.4); Monocytes Absolute Auto 0.6 K/mm3 (0.1-0.6); Monocytes Percent Auto 5.4 % (2.6-8.5); Neutrophils Absolute Auto 9.3 K/mm3 (1.3-6.7); Neutrophils Percent Auto 80.4 % (45.5-73.1); Platelet Count Result 294 k/mm3 (150-375); Red Blood Count 4.92 M/mm3 (4.2-5.4); Red Cell Distribution Width 12.2 % (11.5-14.5); White Blood Count 11.5 K/mm3 (4.5-10.0)
[2023-09-10 03:07] LABS: Alanine Aminotransferase 21 U/L (6-35); Albumin Level 4.2 g/dL (3.5-5.1); Alkaline Phosphatase 64 U/L (38-126); Anion Gap 7 mmol/L (4-12); Aspartate Amino Transferase 25 U/L (14-36); Bilirubin,Total 0.5 mg/dL (0.2-1.3); Blood Urea Nitrogen 8 mg/dL (7-17); Calcium 9.7 mg/dL (8.4-10.2); Carbon Dioxide 21 mmol/L (22-30); Chloride 109 mmol/L (98-107); Estimated CRCL calculation 62 ml/min; Estimated Glomerular Filt Rate > 60; Glucose 125 mg/dL (65-110); Lipase 76 U/L (23-300); Potassium 3.9 mmol/L (3.4-5.0); Sodium 137 mmol/L (137-145)
[2023-09-10 03:19] LABS: Troponin I < 0.012 ng/mL (0.000-0.034)
[2023-09-10 03:31] VITALS: BP 128/79; PULSE 82; RESP 18; O2SAT 100
[2023-09-10 03:49] LABS: Appearance Urine Clear (Clear); Bacteria Urine None Seen /hpf; Bilirubin Urine Negative (Negative); Blood Urine Negative (Negative); Color Urine Yellow (Yellow); Glucose Urine UA Negative (Negative); Ketones Urine 1+ mg/dL (Negative); Leukocyte Esterase Ur 1+ LEU/UL (Negative); Mucus Urine Present /lpf; Need Manual Microscopic Reviewed; Nitrate Urine Negative (Negative); Non Pathogenic Casts 0-2; Protein Urine Negative (Negative); RBC Urine 0-2 /hpf (0-2); Specific Grav Ur 1.018 (1.001-1.035); Squamous Epithelial Cell Urine None Seen /hpf (Few); Urobilinogen Urine 0.2 mg/dL (<2.0); WBC Urine 0-5 /hpf (0-3); pH Urine 6.5 (5.0-9.0)
[2023-09-10 03:59] LABS: Add Urine Microscopic? YES
[2023-09-10 04:21] VITALS: BP 129/79; PULSE 74; RESP 12; O2SAT 100
--- NOTE | 2023-09-10 04:37 | PC.NURSE ---
please see downtime charting for medication administration.
== END 2023-09-10 04:35 | disposition home or self-care (01) ==
PROVIDERS: Emergency Provider Emergency Medicine; PCP Family Medicine
DX: R10.13 Epigastric pain (principal); J45.909 Unspecified asthma, uncomplicated; K21.9 Gastro-esophageal reflux disease without esophagitis; K58.9 Irritable bowel syndrome, unspecified; M79.7 Fibromyalgia; G47.33 Obstructive sleep apnea (adult) (pediatric); F17.210 Nicotine dependence, cigarettes, uncomplicated; F17.290 Nicotine dependence, other tobacco product, uncomplicated; Z90.710 Acquired absence of both cervix and uterus; Z90.721 Acquired absence of ovaries, unilateral; Z79.899 Other long term (current) drug therapy
CPT/HCPCS: 36415; 71045; 80053; 81001; 83690; 84484; 85025; 93005; 96374; 99284; A9270; C9113; J0780; J1200; J7030

== ENCOUNTER 2023-10-06 11:13 | Emergency (ER) | payer OTHER, SELFPAY ==
[2023-10-06 11:17] VITALS: BP 127/91; PULSE 82; RESP 16; TEMP 36.4; O2SAT 99
[2023-10-06 12:05] LABS: Appearance Urine Turbid (Clear); Bacteria Urine 1+ /hpf; Bilirubin Urine Negative (Negative); Blood Urine 2+ (Negative); Color Urine Yellow (Yellow); Glucose Urine UA Negative (Negative); Ketones Urine Trace mg/dL (Negative); Leukocyte Esterase Ur 3+ LEU/UL (Negative); Nitrate Urine Negative (Negative); Non Pathogenic Casts 0-2; Protein Urine 1+ mg/dL (Negative); RBC Urine 21-50 /hpf (0-2); Specific Grav Ur 1.022 (1.001-1.035); Squamous Epithelial Cell Urine Few /hpf (Few); WBC Urine >100 /hpf (0-3)
[2023-10-06 12:08] LABS: Add Urine Microscopic? YES
--- NOTE | 2023-10-06 12:17 | ED.GENADULT ---
HPI - General Adult General Chief complaint: Unspecified Stated complaint: shakiness Time Seen by Provider: 10/06/23 11:23 History of Present Illness HPI narrative: Patient is a 42-year-old female who presents ER with shakiness and concerns for possible UTI. Over last couple days she has had some anxiousness and shakiness. She also developed suprapubic pressure and discomfort with urination today. She had a colonoscopy earlier in the week and has felt a little bit off since then. No chest pain or chest pressure. No fevers or chills or sweats. No flank pain. Patient also reports that her significant other was caught cheating on her. She has not slept with him for 6 weeks and does not have any new vaginal discharge. Related Data Home Medications Medication Instructions Recorded Confirmed L.acidoph,rhamnosus-B.infantis,longum 1 cap PO DAILY 08/02/23 08/09/23 2 billion cell sprinkle capsule (Digestive Probiotic) albuterol sulfate 90 mcg/actuation 2 puff inhalation PRN PRN 08/02/23 08/09/23 aerosol inhaler Shortness Of Breath Or Wheezing digestive enzymes 1 cap PO DAILY 08/02/23 08/09/23 esomeprazole magnesium 20 mg 20 mg PO DAILY 08/02/23 08/09/23 capsule,delayed release (Nexium) mometasone 0.1 % topical solution 2 applic topical PRN 08/02/23 08/09/23 polyethylene glycol 3350 17 17 g PO DAILY PRN Constipation 08/02/23 08/09/23 gram/dose oral powder (Miralax) psyllium husk 0.4 gram capsule 0.4 g PO DAILY 08/02/23 08/09/23 (Daily Fiber) tenapanor 50 mg tablet (Ibsrela) 50 mg PO BID 08/02/23 08/09/23 Allergies Allergy/AdvReac Type Severity Reaction Status Date / Time hydromorphone [From Dilaudid] Allergy Mild Palpitation Verified 09/10/23 02:13 s pravastatin Allergy Mild Palpitation Verified 09/10/23 02:13 s Review of Systems Review of Systems: All systems reviewed & are unremarkable except as noted in HPI and below Constitutional: Constitutional: Reports no additional constitutional complaints Gastrointestinal: Gastrointestinal: Reports no additional gastrointestinal complaints Genitourinary: Genitourinary: Reports dysuria, Denies pelvic pain, Denies flank pain, Reports urinary urgency, Denies vaginal discharge and Denies vaginal odor Musculoskeletal: Musculoskeletal: Reports no additional musculoskeletal complaints PMFSH Past Medical History Medical History (Updated 10/06/23 @ 12:19 by Nino Lynn MD) Anxiety Asthma Fibromyalgia GERD (gastroesophageal reflux disease) IBS (irritable bowel syndrome) SELINA (obstructive sleep apnea) Surgical History Surgical History History of left oophorectomy History of partial hysterectomy Family History Family History Other Depression Anxiety Heart disease Grandparent Depression Anxiety Heart disease Grandparent Cerebrovascular accident Social History Social History Smoking packs per day: 1 Smoking cigarettes per day: 20.0 Years smoked: 22 Smoking pack-years: 22.00 Smoking status: Current every day smoker Tobacco type: cigarettes and e-cigarettes/vaping Second hand tobacco smoke exposure: No Alcohol intake: never Substance use: never Substance use type: does not use Do You Feel Safe in your Home?: Yes Lack of Transportation: No Lack of Food: Never True Current Housing: I Have Housing Concerned About Future Housing: No Difficulty Paying Gas/Electric Bills: No Difficulty Paying for Meds: No Currently Unemployed: No Education: High School Diploma/GED Difficulty w/ Childcare or Family Care: No Living arrangements: with family Spiritual care concerns: No Exam Narrative: GENERAL: Well-appearing, well-nourished, and in no acute distress. HEAD: Normocephalic, atraumatic. ENT: Mucous membranes moist. CHEST: [place]
== END 2023-10-06 12:24 | disposition home or self-care (01) ==
PROVIDERS: Emergency Provider Emergency Medicine; PCP Family Medicine
DX: N39.0 Urinary tract infection, site not specified (principal); F17.210 Nicotine dependence, cigarettes, uncomplicated
CPT/HCPCS: 81001; 87077; 87086; 87088; 87186; 87491; 87591; 99283

== ENCOUNTER 2023-10-18 02:08 | Emergency (ER) | payer OTHER, SELFPAY ==
[2023-10-18 02:09] VITALS: BP 140/84; PULSE 71; RESP 14; TEMP 36.6; O2SAT 98
[2023-10-18 02:19] VITALS: BP 140/84; PULSE 66; RESP 14; O2SAT 98
--- NOTE | 2023-10-18 03:20 | ED.GENADULT ---
HPI - General Adult General Chief complaint: Anxiety Stated complaint: possible panic attack/new med-venlafaxine Time Seen by Provider: 10/18/23 02:36 History of Present Illness HPI narrative: The prefer old female who presents emergency department chief complaint of anxiety attack. Patient reports that she was just started on venlafaxine and reports that she has been having episodes of panic since then the patient reports she has talked to her primary doctor is planning on stopping the medication the patient denies suicidal or homicidal ideation reports that she has had difficulty controlling her anxiety and would like to be back on a benzodiazepine. Related Data Home Medications Medication Instructions Recorded Confirmed L.acidoph,rhamnosus-B.infantis,longum 1 cap PO DAILY 08/02/23 10/10/23 2 billion cell sprinkle capsule (Digestive Probiotic) albuterol sulfate 90 mcg/actuation 2 puff inhalation PRN PRN 08/02/23 10/10/23 aerosol inhaler Shortness Of Breath Or Wheezing digestive enzymes 1 cap PO DAILY 08/02/23 10/10/23 esomeprazole magnesium 20 mg 20 mg PO DAILY 08/02/23 10/10/23 capsule,delayed release (Nexium) mometasone 0.1 % topical solution 2 applic topical PRN 08/02/23 10/10/23 polyethylene glycol 3350 17 17 g PO DAILY PRN Constipation 08/02/23 10/10/23 gram/dose oral powder (Miralax) psyllium husk 0.4 gram capsule 0.4 g PO DAILY 08/02/23 10/10/23 (Daily Fiber) tenapanor 50 mg tablet (Ibsrela) 50 mg PO BID 08/02/23 10/10/23 Allergies Allergy/AdvReac Type Severity Reaction Status Date / Time hydromorphone [From Dilaudid] Allergy Mild Palpitation Verified 10/18/23 02:19 s pravastatin Allergy Mild Palpitation Verified 10/18/23 02:19 s Review of Systems Review of Systems: A 10 system review of systems was completed on the patient and is negative except for what is stated in the HPI. Nursing and ancillary documentation was reviewed. [facility] Past Medical History Medical History Anxiety Asthma Fibromyalgia GERD (gastroesophageal reflux disease) IBS (irritable bowel syndrome) SELINA (obstructive sleep apnea) Surgical History Surgical History History of left oophorectomy History of partial hysterectomy Family History Family History Other Depression Anxiety Heart disease Grandparent Depression Anxiety Heart disease Grandparent Cerebrovascular accident Social History Social History Smoking packs per day: 1 Smoking cigarettes per day: 20.0 Years smoked: 22 Smoking pack-years: 22.00 Smoking status: Current every day smoker Tobacco type: cigarettes and e-cigarettes/vaping Second hand tobacco smoke exposure: No Alcohol intake: never Substance use: never Substance use type: does not use Do You Feel Safe in your Home?: Yes Lack of Transportation: No Lack of Food: Never True Current Housing: I Have Housing Concerned About Future Housing: No Difficulty Paying Gas/Electric Bills: No Difficulty Paying for Meds: No Currently Unemployed: No Education: High School Diploma/GED Difficulty w/ Childcare or Family Care: No Living arrangements: with family Spiritual care concerns: No Exam Narrative: GENERAL: Well-appearing, well-nourished, and in no acute distress. HEAD: Normocephalic, atraumatic. EYES: PERRLA and EOMI. ENT: Nares clear, no rhinorrhea or epistaxis. Mucous membranes moist. NECK: Supple. CHEST: Clear to auscultation. No respiratory distress. HEART: Regular rate and rhythm. No murmur heard. Normal peripheral pulses. ABDOMEN: Soft, nontender, nondistended, normal active bowel sounds. EXTREMITIES: Normal range of motion. No edema. SKIN: Warm, dry, no rash. NEURO: No focal de
[2023-10-18 03:34] LABS: Basophils Absolute Auto 0.1 K/mm3 (0.0-0.1); Basophils Percent Auto 1.2 % (0.2-1.2); Eosinophils Percent Auto 0.3 % (0-4.4); Hematocrit 42.8 % (37.0-47.0); Hemoglobin 14.6 g/dL (12.0-15.0); Immature Granulocyte Absolute 0.03 K/mm3 (0.00-0.031); Immature Granulocyte Percent A 0.3 % (0-0.5); Lymphocytes Percent Auto 16.5 % (18.3-44.2); Mean Corpuscular HGB Conc 34.1 g/dl (32-36); Mean Corpuscular Hemoglobin 29.7 pg (26-34); Mean Platelet Volume 10.6 fl (7.4-10.4); Monocytes Absolute Auto 0.7 K/mm3 (0.1-0.6); Monocytes Percent Auto 7.2 % (2.6-8.5); Neutrophils Absolute Auto 6.8 K/mm3 (1.3-6.7); Neutrophils Percent Auto 74.5 % (45.5-73.1); Platelet Count Result 322 k/mm3 (150-375); Red Blood Count 4.92 M/mm3 (4.2-5.4); White Blood Count 9.1 K/mm3 (4.5-10.0)
[2023-10-18 03:37] LABS: Appearance Urine Clear (Clear); Bilirubin Urine Negative (Negative); Blood Urine Negative (Negative); Color Urine Yellow (Yellow); Glucose Urine UA Negative (Negative); Ketones Urine Negative (Negative); Leukocyte Esterase Ur Negative LEU/UL (Negative); Nitrate Urine Negative (Negative); Protein Urine Negative (Negative); Specific Grav Ur 1.006 (1.001-1.035); Urobilinogen Urine 0.2 mg/dL (<2.0); pH Urine 6.5 (5.0-9.0)
[2023-10-18 03:40] LABS: Add Urine Microscopic? NO
[2023-10-18 03:52] LABS: Alanine Aminotransferase 32 U/L (6-35); Albumin Level 4.2 g/dL (3.5-5.1); Alkaline Phosphatase 63 U/L (38-126); Anion Gap 7 mmol/L (4-12); Aspartate Amino Transferase 33 U/L (14-36); Bilirubin,Total 0.4 mg/dL (0.2-1.3); Blood Urea Nitrogen 7 mg/dL (7-17); Calcium 9.6 mg/dL (8.4-10.2); Carbon Dioxide 26 mmol/L (22-30); Chloride 103 mmol/L (98-107); Estimated CRCL calculation 70 ml/min; Estimated Glomerular Filt Rate > 60; Glucose 104 mg/dL (65-110); Magnesium 2.1 mg/dL (1.6-2.3); Potassium 3.7 mmol/L (3.4-5.0); Sodium 136 mmol/L (137-145)
[2023-10-18] MEDS: ONDANSETRON HCL ODT 4 MG TABLET PO (04:57)
[2023-10-18 05:13] VITALS: BP 118/75; PULSE 68; RESP 15; O2SAT 99
== END 2023-10-18 04:55 | disposition home or self-care (01) ==
PROVIDERS: Emergency Provider Emergency Medicine; PCP Family Medicine
DX: F41.9 Anxiety disorder, unspecified (principal); R11.0 Nausea; J45.909 Unspecified asthma, uncomplicated; M79.7 Fibromyalgia; K21.9 Gastro-esophageal reflux disease without esophagitis; K58.9 Irritable bowel syndrome, unspecified; G47.33 Obstructive sleep apnea (adult) (pediatric); F17.210 Nicotine dependence, cigarettes, uncomplicated; F17.290 Nicotine dependence, other tobacco product, uncomplicated; Z90.711 Acquired absence of uterus with remaining cervical stump; Z90.721 Acquired absence of ovaries, unilateral; Z79.899 Other long term (current) drug therapy
CPT/HCPCS: 36415; 80053; 81003; 81025; 83735; 85025; 99283; A9270

== ENCOUNTER 2023-10-26 10:09 | Emergency (ER) | payer OTHER, SELFPAY ==
[2023-10-26 10:17] VITALS: BP 121/94; PULSE 90; RESP 16; TEMP 36.3; O2SAT 100
[2023-10-26 12:10] LABS: Appearance Urine Turbid (Clear); Bacteria Urine None Seen /hpf; Bilirubin Urine Negative (Negative); Blood Urine 3+ (Negative); Color Urine Yellow (Yellow); Glucose Urine UA Negative (Negative); Ketones Urine Negative (Negative); Leukocyte Esterase Ur 3+ LEU/UL (Negative); Need Manual Microscopic Reviewed; Nitrate Urine Negative (Negative); Protein Urine Trace mg/dL (Negative); RBC Urine 0-2 /hpf (0-2); Specific Grav Ur 1.003 (1.001-1.035); Squamous Epithelial Cell Urine None Seen /hpf (Few); Urobilinogen Urine 0.2 mg/dL (<2.0); WBC Clumps Urine Present /HPF; WBC Urine >100 /hpf (0-3)
[2023-10-26 12:11] LABS: Add Urine Microscopic? YES
--- NOTE | 2023-10-26 13:17 | ED.GENADULT ---
HPI - General Adult General Chief complaint: Urogenital-Female Stated complaint: vaginal bleeding Time Seen by Provider: 10/26/23 11:02 History of Present Illness HPI narrative: 42 old female presents to the emergency department for evaluation for urinary pressure. Patient was recently treated for urinary tract infection on October 05. Patient did complete the antibiotics. Patient did have follow-up in had a negative UA. Patient states over 4 she has had worsening urinary pressure and increased urinary frequency. Related Data Home Medications Medication Instructions Recorded Confirmed L.acidoph,rhamnosus-B.infantis,longum 1 cap PO DAILY 08/02/23 10/10/23 2 billion cell sprinkle capsule (Digestive Probiotic) albuterol sulfate 90 mcg/actuation 2 puff inhalation PRN PRN 08/02/23 10/10/23 aerosol inhaler Shortness Of Breath Or Wheezing digestive enzymes 1 cap PO DAILY 08/02/23 10/10/23 esomeprazole magnesium 20 mg 20 mg PO DAILY 08/02/23 10/10/23 capsule,delayed release (Nexium) mometasone 0.1 % topical solution 2 applic topical PRN 08/02/23 10/10/23 polyethylene glycol 3350 17 17 g PO DAILY PRN Constipation 08/02/23 10/10/23 gram/dose oral powder (Miralax) psyllium husk 0.4 gram capsule 0.4 g PO DAILY 08/02/23 10/10/23 (Daily Fiber) tenapanor 50 mg tablet (Ibsrela) 50 mg PO BID 08/02/23 10/10/23 Allergies Allergy/AdvReac Type Severity Reaction Status Date / Time hydromorphone [From Dilaudid] Allergy Mild Palpitation Verified 10/18/23 02:19 s pravastatin Allergy Mild Palpitation Verified 10/18/23 02:19 s Review of Systems Review of Systems: All systems reviewed & are unremarkable except as noted in HPI and below PMFSH Past Medical History Medical History Anxiety Asthma Fibromyalgia GERD (gastroesophageal reflux disease) IBS (irritable bowel syndrome) SELINA (obstructive sleep apnea) Surgical History Surgical History History of left oophorectomy History of partial hysterectomy Family History Family History Other Depression Anxiety Heart disease Grandparent Depression Anxiety Heart disease Grandparent Cerebrovascular accident Social History Social History Smoking packs per day: 1 Smoking cigarettes per day: 20.0 Years smoked: 22 Smoking pack-years: 22.00 Smoking status: Current every day smoker Tobacco type: cigarettes and e-cigarettes/vaping Second hand tobacco smoke exposure: No Alcohol intake: never Substance use: never Substance use type: does not use Do You Feel Safe in your Home?: Yes Lack of Transportation: No Lack of Food: Never True Current Housing: I Have Housing Concerned About Future Housing: No Difficulty Paying Gas/Electric Bills: No Difficulty Paying for Meds: No Currently Unemployed: No Education: High School Diploma/GED Difficulty w/ Childcare or Family Care: No Living arrangements: with family Spiritual care concerns: No Exam Narrative: APPEARANCE: Well appearing, no pain, no distress, well-nourished. HEAD: normocephalic, atraumatic. EYES: PERRLA/EOMI, conjunctivae clear. NOSE: Normal no drainage EARS:TMS clear with good light reflex. THROAT: Pharynx clear, no exudate. NECK: Supple. No adenopathy, no masses. RESPIRATORY: Airway patent, respirations nonlabored. Clear to auscultation bilaterally, no rales, rhonchi, wheezing. CARDIOVASCULAR: Regular rate and rhythm without murmurs rubs or gallops. ABDOMINAL: Soft, nontender, nondistended, normal bowel sounds, no CVA tenderness to palpation MUSCULOSKELETAL: Moves all extremities. Strength/ROM intact, No edema, No calf tenderness. NEURO: Alert. Cranial nerves II through XII intact. Grossly SKIN: Warm, dry. Normal Color
[2023-10-26] MEDS: levoFLOXacin 750 MG TABLET PO (13:56)
[2023-10-26] MEDS: FLUCONAZOLE 150 MG TABLET PO (13:56)
[2023-10-26 14:02] VITALS: BP 118/78; PULSE 74; RESP 16; TEMP 36.6; O2SAT 98
== END 2023-10-26 14:13 | disposition home or self-care (01) ==
PROVIDERS: Emergency Provider Emergency Medicine; PCP Family Medicine
DX: B37.49 Other urogenital candidiasis (principal); J45.909 Unspecified asthma, uncomplicated; M79.7 Fibromyalgia; K21.9 Gastro-esophageal reflux disease without esophagitis; K58.9 Irritable bowel syndrome, unspecified; G47.33 Obstructive sleep apnea (adult) (pediatric); F17.210 Nicotine dependence, cigarettes, uncomplicated; F17.290 Nicotine dependence, other tobacco product, uncomplicated; Z90.721 Acquired absence of ovaries, unilateral; Z90.711 Acquired absence of uterus with remaining cervical stump
CPT/HCPCS: 81001; 87086; 99283; A9270

== ENCOUNTER 2024-01-23 19:02 | Emergency (ER) | payer OTHER, SELFPAY ==
--- NOTE | ~2024-01-23 | US_ITS ---
EXAMINATION: US pelvic limited DATE: 01/23/2024 23:32 INDICATION: Left adnexal cyst TECHNIQUE: Multiple transabdominal and endovaginal sonographic images of the pelvis were obtained. COMPARISON: CT studies dated 01/23/2024 and 07/20/2023. FINDINGS: The uterus is not visualized and reportedly surgically absent. There is a 3.5 x 3.0 x 3.1 cm cystic l esion at the left adnexa with single thin internal linear septation. There are some vascular flow at the periphery of the cystic lesion. Although the left ovary is reportedly absent there does appear to be ovarian tissue associated with the cystic left adnexal lesion on the prior CT imaging and the rig ht ovary is not visualized on either the current ultrasound or on the prior CT imaging suggesting a m ore likely prior right oophorectomy. Correlate with surgical history. There is no free fluid in the p luana. IMPRESSION: 1. Status post hysterectomy and likely right oophorectomy which contradicts the provided clinical his tory of a reported left oophorectomy. 2. 3.5 cm cystic lesion at the left adnexa with single thin internal septation likely representing ei ther a septated ovarian cyst or pair of closely opposed simple ovarian cysts. Upon review of the imme diately prior CT imaging the suggestion of a gradient posterior density appears more likely to repres ent ovarian tissue along side the cysts. Reviewed, dictated and finalized at location A. IMPRESSION: 1. Status post hysterectomy and likely right oophorectomy which contradicts the provided clinical history of a reported left oophorectomy. 2. 3.5 cm cystic lesion at the left adnexa with single thin internal septation likely representing either a septated ovarian cyst or pair of closely opposed s imple ovarian cysts. Upon review of the immediately prior CT imaging the sugges tion of a gradient posterior density appears more likely to represent ovarian t issue along side the cysts.
--- NOTE | ~2024-01-23 | CT_ITS ---
EXAMINATION: CT abdomen pelvis w con DATE: 01/23/2024 21:47 INDICATION: Epigastric pain, nausea, vomiting and diarrhea. TECHNIQUE: Computed tomography (CT) of the abdomen and pelvis was performed with 100 mL Omnipaque-350 intravenous contrast. Automated exposure control and iterative reconstruction technique were employe d. The dose-length product was 253.16 mGy-cm. COMPARISON: 07/20/2023 FINDINGS: Lung bases are clear. Heart size normal. No pericardial or pleural effusion. There appears to be some wall thickening at the gastric pylorus. No surrounding inflammatory stranding Cholecystectomy clips at the gallbladder fossa. Liver, spleen, pancreas, bilateral adrenal glands and kidneys are normal. B owels including the appendix are normal. Bladder is normal. The uterus is not identified and has like ly been surgically resected. Small amount of likely physiologic free fluid in the cul-de-sac. There a re couple approximately 2 cm cystic lesions at the left adnexa, one with subtle gradient of increasin g dependent density suspicious for hemorrhagic cyst. No abscess or free intraperitoneal gas. No patho logically enlarged abdominal or pelvic lymphadenopathy. Moderate disc height loss at L5-S1. Bones are otherwise unremarkable. IMPRESSION: 1. Suggestion of focal wall thickening at the gastric pylorus which could be due to peristalsis, foca l gastritis or peptic ulcer disease although there is no associated stranding in the surrounding fat to more specifically suggest either of the latter. 2. A couple 2 cm cystic lesion to the left adnexa, with subtle gradient of increasing dependent densi ty suspicious for hemorrhagic cyst. Could consider pelvic ultrasound for further evaluation. Reviewed, dictated and finalized at location A. IMPRESSION: 1. Suggestion of focal wall thickening at the gastric pylorus which could be du e to peristalsis, focal gastritis or peptic ulcer disease although there is no associated stranding in the surrounding fat to more specifically suggest either of the latter. 2. A couple 2 cm cystic lesion to the left adnexa, with subtle gradient of incr easing dependent density suspicious for hemorrhagic cyst. Could consider pelvic ultrasound for further evaluation.
[2024-01-23 19:03] VITALS: BP 135/96; PULSE 89; RESP 16; TEMP 36.5; O2SAT 99
--- NOTE | 2024-01-23 19:40 | ECG_ITS ---
Test Date: 2024-01-23 20:20:20 Measurements Intervals [place] Rate: 68 P: 66 MI: 132 QRS: 80 QRSD: 86 T: 67 QT: 411 QTc: 439 Interpretive Statements SINUS RHYTHM Compared to ECG 09/10/2023 03:05:31 No significant changes Electronically Signed On 01-24-2024 09:39:27 CDT by Billy Hewitt M.D.
--- NOTE | 2024-01-23 19:41 | ED_ITS ---
HPI - Abdominal Pain General Chief Complaint: Abdominal Pain Stated Complaint: Abd pain Time Seen by Provider: 01/23/24 19:32 History of Present Illness HPI narrative: 43-year-old female with history of IBS, GERD, asthma, s/p tubal ligation, cholecystectomy presents to the emergency department for epigastric abdominal pain that started around noon today. Patient states at 11:00 a.m. she had a chili mac from [employer]. An hour later she began having pain in her epigastrium with associated nausea and vomiting. States she then had diarrhea. States the vomiting has persisted so she contacted EMS and was transferred to the ED for further evaluation. She denies fever, dysuria or hematuria. Denies chest pain but is reporting some shortness of breath secondary to pain. Related Data Home Medications Medication Instructions Recorded Confirmed L.acidoph,rhamnosus-B.infantis,longum 1 cap PO DAILY 08/02/23 10/10/23 2 billion cell sprinkle capsule (Digestive Probiotic) albuterol sulfate 90 mcg/actuation 2 puff inhalation PRN PRN 08/02/23 10/10/23 aerosol inhaler Shortness Of Breath Or Wheezing digestive enzymes 1 cap PO DAILY 08/02/23 10/10/23 esomeprazole magnesium 20 mg 20 mg PO DAILY 08/02/23 10/10/23 capsule,delayed release (Nexium) mometasone 0.1 % topical solution 2 applic topical PRN 08/02/23 10/10/23 polyethylene glycol 3350 17 17 g PO DAILY PRN Constipation 08/02/23 10/10/23 gram/dose oral powder (Miralax) psyllium husk 0.4 gram capsule 0.4 g PO DAILY 08/02/23 10/10/23 (Daily Fiber) tenapanor 50 mg tablet (Ibsrela) 50 mg PO BID 08/02/23 10/10/23 Allergies Allergy/AdvReac Type Severity Reaction Status Date / Time hydromorphone [From Dilaudid] Allergy Mild Palpitation Verified 01/23/24 19:14 s pravastatin Allergy Mild Palpitation Verified 01/23/24 19:14 s Review of Systems Review of Systems: All systems reviewed & are unremarkable except as noted in HPI and below PMFSH Past Medical History Medical History Anxiety Asthma Fibromyalgia GERD (gastroesophageal reflux disease) IBS (irritable bowel syndrome) SELINA (obstructive sleep apnea) Surgical History Surgical History History of left oophorectomy History of partial hysterectomy Family History Family History Other Depression Anxiety Heart disease Grandparent Depression Anxiety Heart disease Grandparent Cerebrovascular accident Social History Social History Smoking packs per day: 1 Smoking cigarettes per day: 20.0 Years smoked: 22 Smoking pack-years: 22.00 Smoking status: Current every day smoker Tobacco type: cigarettes and e-cigarettes/vaping Second hand tobacco smoke exposure: No Alcohol intake: never Substance use: never Substance use type: does not use Do You Feel Safe in your Home?: Yes Lack of Transportation: No Lack of Food: Never True Current Housing: I Have Housing Concerned About Future Housing: No Difficulty Paying Gas/Electric Bills: No Difficulty Paying for Meds: No Currently Unemployed: No Education: High School Diploma/GED Difficulty w/ Childcare or Family Care: No Living arrangements: with family Spiritual care concerns: No Exam Narrative: GENERAL: Well-appearing, well-nourished, and in no acute distress. HEAD: Normocephalic, atraumatic. EYES: EOMI. ENT: Nares clear, no rhinorrhea or epistaxis. Mucous membranes moist. NECK: Supple. CHEST: Clear to auscultation. No respiratory distress. HEART: Regular rate and rhythm. No murmur heard. Normal peripheral pulses. ABDOMEN: Normoactive bowel sounds. Abdomen soft with tenderness in epigastrium. No rebound, guarding or rigidity. No CVA tenderness. EXTREMITIES: Normal range of motion. No edema. SKIN: Warm, dry, no rash. NEURO: No focal deficits. Alert and oriented x3 Course Vital Signs Vital signs: Vital Signs Temperature 97.7 F 01/23/24 19:03 Pulse Rate 89 01/23/24 19:03 Respiratory Rate 16 01/23/24 19:03 Blood Pressure 135/96 H 01/23/24 19:03 Pulse Oximetry 99 01/23/24 19:03 Oxygen Delivery Room Air 01/23/24 19:03 Temperature 97.7 F 01/23/24 19:03 Pulse Rate 72 01/23/24 22:38 Respiratory Rate 16 01/23/24 22:38 Blood Pressure 115/79 01/23/24 22:38 Pulse Oximetry 95 01/23/24 22:38 Oxygen Delivery Room Air 01/23/24 19:03 MDM - Abdominal Pain MDM Narrative Medical decision making narrative: 43-year-old female presents emergency department for epigastric abdominal pain, N/V/D after eating a [employer] chili mac this morning. Vitals are stable. She is afebrile nontoxic appearing. Exam significant for the above. CBC with leukocytosis of 15.6, no bandemia. Chemistries are unremarkable. UA without infection. is negative. Lipase is normal. EKG shows normal sinus rhythm, no ischemic changes. Troponin is undetectable. CT abdomen pelvis reveals suggestion of focal wall thickening of the gastric pylorus which may be due to peristalsis, focal gastritis or PUD. There are couple 2 cm cystic lesions the left adnexa, with left subtle grading of increasing dependent density suspicious for hemorrhagic cyst. Pelvic ultrasound obtained for further evaluation which reveals a 3.5 cm cystic lesion of the left adnexa was single thin internal septation likely representing is either a septated ovarian cyst repair closely apposed simple ovarian cysts. The radiologist states upon review of the immediately prior CT of the with the suggestion of a gradient posterior density appears more likely to represent ovarian tissue along side the cyst (as opposed to hemorrhagic cyst). Patient was updated on her workup. She was given IV fluids, Zofran, Protonix, Bentyl, and GI cocktail with improvement. She is tolerating po intake. Suspect her symptoms are secondary to food poisoning versus gastroenteritis versus gastritis versus PUD. She will be sent home with Zofran and Protonix and given GI follow-up. Also advised her to f/u with OBGYN for ovarian cyst. Discussed strict ED return precautions. She is agreeable with the plan verbalized understanding. Discharged in stable condition. Lab Data 01/23/24 20:16 01/23/24 20:16 Labs: Lab Results 01/23/24 01/23/24 01/23/24 Range/Units 20:16 20:43 20:49 WBC 15.6 H (4.5-10.0) K/mm3 RBC 5.04 (4.2-5.4) M/mm3 Hgb 15.2 H (12.0-15.0) g/dL Hct 44.2 (37.0-47.0) % MCV 87.7 (80-100) fl MCH 30.2 (26-34) pg MCHC 34.4 (32-36) g/dl RDW 12.6 (11.5-14.5) % Plt Count 312 (150-375) k/mm3 MPV 10.4 (7.4-10.4) fl Immature Gran % (Auto) 0.6 H (0-0.5) % Neut % (Auto) 83.4 H (45.5-73.1) % Lymph % (Auto) 9.5 L (18.3-44.2) % [place] % (Auto) 4.2 (2.6-8.5) % Eos % (Auto) 1.9 (0-4.4) % Baso % (Auto) 0.4 (0.2-1.2) % Lymph # (Auto) 1.48 (0.9-3.2) K/mm3 [place] # (Auto) 0.7 H (0.1-0.6) K/mm3 Eos # (Auto) 0.3 (0-0.3) K/mm3 Baso # (Auto) 0.1 (0.0-0.1) K/mm3 Abs Immat Gran (auto) 0.09 H (0.00-0.031) K/mm3 Absolute Neuts (auto) 13.0 H (1.3-6.7) K/mm3 Absolute Nucleated RBC 0.000 (0.0-0.012) K/mm3 Nucleated RBC % 0.0 (0.0-0.2) % Sodium 137 (137-145) mmol/L Potassium 3.9 (3.4-5.0) mmol/L Chloride 105 (98-107) mmol/L Carbon Dioxide 24 (22-30) mmol/L Anion Gap 8 (4-12) mmol/L BUN 12 D (7-17) mg/dL Creatinine 0.80 (0.7-1.0) mg/dL Estim Creat Clear Calc 61 ml/min Estimated GFR > 60 (59 - ) Glucose 113 H (65-110) mg/dL Calcium 9.2 (8.4-10.2) mg/dL Total Bilirubin 0.3 (0.2-1.3) mg/dL AST 26 (14-36) U/L ALT 19 (6-35) U/L Alkaline Phosphatase 72 (38-126) U/L Troponin I < 0.012 (0.000-0.034) ng/mL Total Protein 7.0 (6.3-8.2) g/dL Albumin 4.2 (3.5-5.1) g/dL Lipase 79 (23-300) U/L Urine Color Yellow (Yellow) Urine Appearance Clear (Clear) Urine pH 8.0 (5.0-9.0) Ur Specific [place] 1.013 (1.001-1.035) Urine Protein Negative (Negative) mg/dL Urine Glucose (UA) Negative (Negative) mg/dL Urine Ketones Negative (Negative) mg/dL Ur Blood (Man) Negative (Negative) Urine Nitrate Negative (Negative) Urine Bilirubin Negative (Negative) Urine Urobilinogen 0.2 (<2.0) mg/dL Leukocyte Esterase Rfl Negative (Negative) JOSSELIN/UL POC Urine HCG, Qual Negative (Negative) Imaging Data Radiologist's impression: ITS Impressions Abdomen/Pelvis CT 01/23/24 21:48 IMPRESSION: 1. Suggestion of focal wall thickening at the gastric pylorus which could be due to peristalsis, focal gastritis or peptic ulcer disease although there is no associated stranding in the surrounding fat to more specifically suggest either of the latter. 2. A couple 2 cm cystic lesion to the left adnexa, with subtle gradient of increasing dependent density suspicious for hemorrhagic cyst. Could consider pelvic ultrasound for further evaluation. Pelvis Ultrasound 01/23/24 23:37 IMPRESSION: 1. Status post hysterectomy and likely right oophorectomy which contradicts the provided clinical history of a reported left oophorectomy. 2. 3.5 cm cystic lesion at the left adnexa with single thin internal septation likely representing either a septated ovarian cyst or pair of closely opposed simple ovarian cysts. Upon review of the immediately prior CT imaging the suggestion of a gradient posterior density appears more likely to represent ovarian tissue along side the cysts. Discharge Plan Discharge Clinical Impression: Gastroenteritis, Cyst of left ovary Patient Disposition: Home, Self-Care Condition: Stable Instructions: Antibiotic Form, Gastroenteritis (DC), Acute Nausea and Vomiting (DC), Abdominal Pain (ED) Additional Instructions: Your evaluated in the emergency department for abdominal pain, nausea, vomiting and diarrhea. Your workup revealed a 3.5 cm cyst to her left ovary. Please follow-up with OBGYN regarding this. Your also found have inflammation to your stomach which may be secondary to gastritis or peptic ulcer disease. Please refrain from using NSAIDs such as ibuprofen, Aleve, Advil and naproxen. Please refrain from alcohol. Please take the Protonix and Zofran as directed and follow-up closely with GI. Return to the emergency department if you develop blood in your stools, dark tarry stools, vomiting blood or coffee grounds, changing or worsening abdominal pain, fever, you are unable to tolerate food or fluids, or other concerning symptoms. Prescriptions: New pantoprazole 40 mg tablet,delayed release (DR/EC) 40 mg PO HS 28 Days Qty: 28 0RF ondansetron 4 mg tablet,disintegrating 4 mg PO Q8H Qty: 14 0RF dicyclomine 20 mg tablet 20 mg PO QID Qty: 20 0RF No Action cefuroxime axetil 500 mg tablet 500 mg PO BID Qty: 14 0RF ondansetron 4 mg tablet,disintegrating 4 mg PO Q8H PRN (Reason: nausea and vomiting) Qty: 10 0RF Ibsrela 50 mg tablet 50 mg PO BID Patient Comments: takes for IBS w constipation esomeprazole magnesium [Nexium] 20 mg Capsule,Delayed Release(Dr/Ec) 20 mg PO DAILY albuterol sulfate 90 mcg/actuation HFA aerosol inhaler 2 puff INHALATION PRN PRN (Reason: Shortness Of Breath Or Wheezing) mometasone 0.1 % solution 2 applic TOPICAL PRN polyethylene glycol 3350 [Miralax] 17 gram/dose Powder 17 g PO DAILY PRN (Reason: Constipation) Digestive Probiotic 2 billion cell Capsule, Sprinkle 1 cap PO DAILY psyllium husk [Daily Fiber] 0.4 gram Capsule 0.4 g PO DAILY digestive enzymes Capsule 1 cap PO DAILY Rx Instructions: administer with food; swallow whole; do not crush/chew/dissolve/break/cut hydrocodone-acetaminophen 5-325 mg tablet 1 tablet PO Q4H PRN (Reason: pain) Qty: 20 0RF ondansetron 4 mg tablet,disintegrating 4 mg PO Q8H PRN (Reason: nausea and vomiting) Qty: 10 0RF levofloxacin 750 mg tablet 750 mg PO DAILY 5 Days Qty: 5 0RF fluconazole 150 mg tablet 150 mg PO DAILY Qty: 1 0RF Rx Instructions: Take after you complete your antibiotics fluoxetine 20 mg capsule 20 mg PO DAILY Qty: 30 3RF Follow-up/Referrals: Pamela Parekh MD [Primary Care Provider] - Samuel Pang MD [Physician] - 1 Day
[2024-01-23] MEDS: PANTOPRAZOLE SODIUM IV 40 MG VIAL IV PUSH (20:15)
[2024-01-23] MEDS: ONDANSETRON INJ 4 MG/2 ML VIAL IV PUSH (20:15)
[2024-01-23] MEDS: SODIUM CHLORIDE 0.9% IV 1,000 ML 999 ML IV CONT (20:15)
[2024-01-23 20:25] LABS: Basophils Absolute Auto 0.1 K/mm3 (0.0-0.1); Basophils Percent Auto 0.4 % (0.2-1.2); Eosinophils Absolute Auto 0.3 K/mm3 (0-0.3); Eosinophils Percent Auto 1.9 % (0-4.4); Hematocrit 44.2 % (37.0-47.0); Hemoglobin 15.2 g/dL (12.0-15.0); Immature Granulocyte Absolute 0.09 K/mm3 (0.00-0.031); Immature Granulocyte Percent A 0.6 % (0-0.5); Lymphocytes Absolute Auto 1.48 K/mm3 (0.9-3.2); Lymphocytes Percent Auto 9.5 % (18.3-44.2); Mean Corpuscular HGB Conc 34.4 g/dl (32-36); Mean Corpuscular Hemoglobin 30.2 pg (26-34); Mean Corpuscular Volume 87.7 fl (80-100); Mean Platelet Volume 10.4 fl (7.4-10.4); Monocytes Absolute Auto 0.7 K/mm3 (0.1-0.6); Monocytes Percent Auto 4.2 % (2.6-8.5); Neutrophils Percent Auto 83.4 % (45.5-73.1); Platelet Count Result 312 k/mm3 (150-375); Red Blood Count 5.04 M/mm3 (4.2-5.4); Red Cell Distribution Width 12.6 % (11.5-14.5); White Blood Count 15.6 K/mm3 (4.5-10.0)
[2024-01-23 20:38] LABS: Alanine Aminotransferase 19 U/L (6-35); Albumin Level 4.2 g/dL (3.5-5.1); Alkaline Phosphatase 72 U/L (38-126); Anion Gap 8 mmol/L (4-12); Aspartate Amino Transferase 26 U/L (14-36); Bilirubin,Total 0.3 mg/dL (0.2-1.3); Blood Urea Nitrogen 12 mg/dL (7-17); Calcium 9.2 mg/dL (8.4-10.2); Carbon Dioxide 24 mmol/L (22-30); Chloride 105 mmol/L (98-107); Estimated CRCL calculation 61 ml/min; Estimated Glomerular Filt Rate > 60; Glucose 113 mg/dL (65-110); Lipase 79 U/L (23-300); Potassium 3.9 mmol/L (3.4-5.0); Sodium 137 mmol/L (137-145)
[2024-01-23 20:50] LABS: Troponin I < 0.012 ng/mL (0.000-0.034)
[2024-01-23 20:51] LABS: BEDSIDEPREGUCG Negative (Negative)
[2024-01-23 20:52] LABS: Add Urine Microscopic? NO; Appearance Urine Clear (Clear); Bilirubin Urine Negative (Negative); Blood Urine Negative (Negative); Color Urine Yellow (Yellow); Glucose Urine UA Negative (Negative); Ketones Urine Negative (Negative); Leukocyte Esterase Ur Negative LEU/UL (Negative); Nitrate Urine Negative (Negative); Protein Urine Negative (Negative); Specific Grav Ur 1.013 (1.001-1.035); Urobilinogen Urine 0.2 mg/dL (<2.0)
[2024-01-23 22:38] VITALS: BP 115/79; PULSE 72; RESP 16; O2SAT 95
[2024-01-23] MEDS: DICYCLOMINE HCL 10 MG CAPSULE 20 MG PO (23:46)
[2024-01-24] MEDS: BELLADONNA ALK/PHENOB ELIX 10 ML, MAG HYDROX/ALUMINUM HYD/SIMETH 30 ML, LIDOCAINE HCL 2... PO (01:03)
[2024-01-24 01:08] VITALS: BP 124/80; PULSE 72; RESP 15; O2SAT 100
== END 2024-01-24 01:09 | disposition home or self-care (01) ==
PROVIDERS: Emergency Provider Physician Assistant; PCP Family Medicine
DX: K52.9 Noninfective gastroenteritis and colitis, unspecified (principal); N83.202 Unspecified ovarian cyst, left side; K58.9 Irritable bowel syndrome, unspecified; K21.9 Gastro-esophageal reflux disease without esophagitis; J45.909 Unspecified asthma, uncomplicated; G47.33 Obstructive sleep apnea (adult) (pediatric); M79.7 Fibromyalgia; F17.210 Nicotine dependence, cigarettes, uncomplicated; F17.290 Nicotine dependence, other tobacco product, uncomplicated; Z90.711 Acquired absence of uterus with remaining cervical stump; Z90.721 Acquired absence of ovaries, unilateral; Z90.49 Acquired absence of other specified parts of digestive tract
CPT/HCPCS: 36415; 74177; 76857; 80053; 81003; 81025; 83690; 84484; 85025; 93005; 96361; 96374; 96375; 99284; A9270; J2405; J2470; J7030; Q9967

== ENCOUNTER 2024-03-25 19:46 | Emergency (ER) | payer OTHER, SELFPAY ==
[2024-03-25 19:49] VITALS: BP 129/89; PULSE 80; RESP 16; TEMP 36.6; O2SAT 99
--- NOTE | 2024-03-25 19:53 | ECG_ITS ---
Test Date: 2024-03-25 19:58:40 Measurements Intervals [place] Rate: 89 P: 75 [place]: 112 QRS: 82 QRSD: 81 T: 58 QT: 349 QTc: 426 Interpretive Statements SINUS RHYTHM WITH SHORT [place] INTERVAL Compared to ECG 01/23/2024 20:20:20 Short [place] interval now present Electronically Signed On 03-26-2024 13:47:38 [employer]UNDR[employer] ATTENDANT by Rocael Brown M.D.
--- NOTE | 2024-03-25 20:59 | PC.NURSE ---
Pt to rn case mgr I am feeling worse pain burger just sitting out here and i am not going to sit here all night. I am going to go ahead and go.
== END 2024-03-25 21:21 | disposition left against medical advice (07) ==
LOC: ANHED 21:04
PROVIDERS: Emergency Provider Emergency Medicine; PCP Family Medicine
DX: M25.511 Pain in right shoulder (principal); R51.9 Headache, unspecified
CPT/HCPCS: 93005; 99199

== ENCOUNTER 2024-04-28 20:12 | Emergency (ER) | payer OTHER, SELFPAY ==
--- OUTSIDE RECORDS SUMMARY | 2024-04-28 20:15 | XMS_ITS | CONTINUITY OF CARE DOCUMENT ---
Author Name salima, salima Address Unknown Organization [facility] Address [address] [address] [place] [address] Phone [phone] Care Team Providers Care Sales Enablement Consultant Name Role Phone Sisi BALTAZAR, Amor Mahoney Unavailable [phone] YOANDY BALTAZAR, GERMAIN Champagne Unavailable [phone] VINOD BALTAZAR, CHELI Khanna Unavailable PROBLEMS Condition Status Date Provider Notes Family history of familial hypercholesterolemia active Amor Laird MD Elevated Lipoprotein(a) active Amor Laird MD ANXIETY DISORDER active ? Laurence Hannon MD DEPRESSION active ? Laurence Hannon MD Hypercholesterolemia active Gabino zhang CHEST PAIN-TYPE TO BE DETERMINED active - Mahi Hall SHORTNESS OF BREATH completed - Gabino Hall PALPITATIONS completed - Gabino Hall CHEST PAIN active Gabino Hall Tobacco use active Gabino Hall Bipolar disorder active Gabino Hall Family History Premature CAD active Jaylin Hall Abnormal nuclear stress test - NL cardiac CT 09/2018 calcium score 0 active Gabino Hall Palpitations active Gabino Hall Cardiology examination active Amor Bray Cardiology examination active Amor Bray ENCOUNTERS Date Type Provider Location Encounter Diag nosis - In-person encounter Office Visit Amor Laird MD [facility] Cardiology examination - In-person encounter Office Visit Amor Laird MD [facility] - In-person encounter Office Visit Amor Laird MD [facility] - In-person encounter Office Visit Amor Laird MD [facility] Cardiology examination - In-person encounter Office Visit Benoit Cates MD [facility] - In-person encounter Office Visit Amor Laird MD [facility] - In-person encounter Office Visit Amor Laird MD [facility] Tobacco use - In-person encounter Office Visit Amor Laird MD [facility] CHEST PAIN - In-person encounter Office Visit Amor Laird MD [facility] CHEST PAINTobacco useAbnormal nuclear stress test - NL cardiac CT 09/2018 calcium score 0Palpitations - In-person encounter Office Visit Amor Laird MD [facility] Abnormal nuclear stress test - NL cardia c CT 09/2018 calcium score 0 - In-person encounter Office Visit Amor Laird MD [facility] HypercholesterolemiaCHEST PAIN-TYPE TO B E DETERMINEDSHORTNESS OF BREATHPALPITATIONSTobacco useBipolar disorderFamily History Premature CAD - In-person encounter Office Visit Laurence Hannon MD [facility] CHEST PAIN - In-person encounter Office Visit Laurence Hannon MD [facility] - In-person encounter Office Visit Laurence Hannon MD [facility] ANXIETY DISORDERDEPRESSIONHypercholesterolemia VITAL SIGNS Date Observation Value Provider Body Mass Index (Ratio) 23.26 kg/m2 Amor Laird MD oxygen saturation, oximetry 99 % Ariel Alvarenga blood pressure, cuff size regular Juan Luis wilson Alvarenga blood pressure, diastolic 87 mm[Hg] Juan Luis lemusn Alvarenga blood pressure, systolic 106 mm[Hg] Dali malin Alvarenga pulse rate 90 /min Juan Luisselect [facility]-g[facility] point[facility]he Alvarenga weight E&M 127.2 [lb_av] Juan Luisaron Alvarenga height E&M 62 [in_i] [facility] Body Mass Index (Ratio) 23.59 kg/m2 Anup as Nafisa blood pressure, diastolic 82 mm[Hg] Li nkLogic blood pressure, systolic 123 mm[Hg] Chiara kLogic blood pressure, cuff size regular Ja rret blood pressure, diastolic 82 mm[Hg] Ja rret blood pressure, systolic 123 mm[Hg] Jar ret pulse rate 86 /min Jaior oxygen saturation, oximetry 97 % Jairo respiratory rate E&M 14 /min Jairo weight E&M 129 [lb_av] Jairo y height E&M 62 [in_i] Jairo y Body Mass Index (Ratio) 23.59 kg/m2 Hernan Carrizales blood pressure, diastolic 79 mm[Hg] Augusto Salgado blood pressure, systolic 107 mm[Hg] Katelyn Salgado pulse rate 69 /min Rosa Salgado oxygen saturation, oximetry 98 % Rosa Salgado weight E&M 129 [lb_av] Rosa Salgado blood pressure, cuff size large An javy Salgado height E&M 62 [in_i] Rosa Salgado Body Mass Index (Ratio) 23.96 kg/m2 Amor Laird MD blood pressure, diastolic 77 mm[Hg] Ri gurwinder Peralta blood pressure, systolic 112 mm[Hg] Jules tonja Peralta blood pressure, cuff size regular Ri gurwinder Peralta oxygen saturation, oximetry 97 % Muna Peralta respiratory rate E&M 16 /min Ana Lilia Peralta pulse rate 88 /min Muna Lockett son weight E&M 131 [lb_av] Muna Lockett son height E&M 62 [in_i] Muna Lockett son Body Mass Index (Ratio) 23.77 kg/m2 Leonel Cates MD blood pressure, diastolic 78 mm[Hg] Sa ra Cardona blood pressure, systolic 112 mm[Hg] Marta a Cardona oxygen saturation, oximetry 100 % Rosa Maria Cardona respiratory rate E&M 19 /min Rosa Maria Si ms pulse rate 92 /min Rosa Maria Cardona weight E&M 130 [lb_av] Rosa Maria Cardona blood pressure, cuff size regular Sa ra Cardona height E&M 62 [in_i] Rosa Maria Cardona Body Mass Index (Ratio) 22.86 kg/m2 Margi Sinclair blood pressure, cuff size large Mi gurwinder Wynn blood pressure, diastolic 84 mm[Hg] Mi gurwindre [place] blood pressure, systolic 122 mm[Hg] Manuel tonja [place] oxygen saturation, oximetry 98 % Cortney Wynn respiratory rate E&M 16 /min Cece Wynn pulse rate 75 /min Cortney bray weight E&M 125 [lb_av] Cortney bray height E&M 62 [in_i] Cortney bray Body Mass Index (Ratio) 22.86 kg/m2 Juan hoffman Rafael pulse rate 90 /min Gabino [facility] erg blood pressure, diastolic 86 mm[Hg] Al duglas Rafael blood pressure, systolic 124 mm[Hg] Sridevi dao Rafael weight E&M 125 [lb_av] Gabino [facility] erg height E&M 62 [in_i] [facility] erg Body Mass Index (Ratio) 25.42 kg/m2 Juan dalton Rafael blood pressure, diastolic 88 mm[Hg] Ch astity Vik blood pressure, systolic 103 mm[Hg] Randa stity Vik oxygen saturation, oximetry 98 % [facility] pulse [facility] 98 /min [facility] respiratory rate E&M 18 /min Chastit y Vik weight E&M 139 [lb_av] [facility] Vik height E&M 62 [in_i] [facility] Body [facility] Index (Ratio) 24.69 kg/m2 Juan [facility] pulse rate 96 /min Gabino [facility] [employer] blood pressure, diastolic 78 mm[Hg] Al [facility]Adventist [facility] blood pressure, systolic 116 mm[Hg] Sridevi [facility]John [facility] weight E&M 135 [lb_av] Gabino [facility] [employer] height E&M 62 [in_i] [facility] erg Body Mass Index (Ratio) 25.05 kg/m2 Juan hoffman Rafael blood pressure, cuff size regular Cy maria Goyal blood pressure, diastolic 70 mm[Hg] Cy juan carlosa [place] blood pressure, systolic 118 mm[Hg] Lorene alhaji Goyal oxygen saturation, oximetry 98 % Lidia Goyal respiratory rate E&M 16 /min Lidia Goyal pulse rate 90 /min Lidia amaral weight E&M 137 [lb_av] Lidia amaral height E&M 62 [in_i] Lidia amaral blood pressure, diastolic, left arm 78 mm [Hg] [facility] blood pressure, systolic, left arm 116 mm [Hg] [facility] blood pressure, diastolic, right arm 70 m m[Hg] [facility] blood pressure, systolic, right arm 116 m m[Hg] [facility] blood pressure, resting No [facility] Body Mass Index (Ratio) 24.69 kg/m2 [facility] blood pressure, cuff size regular Cy maria Goyal blood pressure, diastolic 78 mm[Hg] Cy maria Goyal blood pressure, systolic 116 mm[Hg] Lorene Goyal respiratory rate E&M 16 /min Lidia Goyal pulse rate 97 /min Lidia amaral oxygen saturation, oximetry 97 % Lidia Goyal weight E&M 135 [lb_av] Lidia amaral height E&M 62 [in_i] Lidia amaral Body Mass Index (Ratio) 23.39 kg/m2 Preeti Alvarado blood pressure, diastolic 70 mm[Hg] Cody Alvarado blood pressure, systolic 110 mm[Hg] Madi Alvarado pulse rate 75 /min Jory Fengber oxygen saturation, oximetry 99 % Jory Fengber respiratory rate E&M 16 /min Jory thomason weight E&M 127.4 [lb_av] Jory Stueber Body Mass Index (Ratio) 23.54 kg/m2 Ash Medel blood pressure, diastolic, left arm 70 mm [Hg] Ara Medel blood pressure, systolic, left arm 126 mm [Hg] Ara Quanran blood pressure, diastolic, right arm 74 m m[Hg] Ara Medel blood pressure, systolic, right arm 122 m m[Hg] Patricemadieaugusto Medel blood pressure, diastolic 70 mm[Hg] Shirley blood pressure, systolic 126 mm[Hg] Patrice everett Medel pulse rate 87 /min Patricemadieaugusto Medel oxygen saturation, oximetry 99 % Patricemadieaugusto Medel respiratory rate E&M 16 /min Ara Medel weight E&M 128.25 [lb_av] Patriceaugusto Bernard an height E&M 62 [in_i] Ara Medel blood pressure, diastolic 81 mm[Hg] Shirley blood pressure, systolic 116 mm[Hg] Patrice Medel pulse rate 93 /min Jimmieaugusto Medel oxygen saturation, oximetry 98 % Ara Quanran respiratory rate E&M 16 /min Ara Quanran weight E&M 135 [lb_av] Patriceeverett Quanran ALLERGIES Allergy Name Onset Date Reaction Criticality Status ZETIA per pt High Criticality active STATIN INTOLERANT myalgias myalgias High Critic ality active CRESTOR muscle aches Low Criticality active PRAVASTATIN abdominal pain abdominal pain Low C riticality active DILAUDID unknown High Criticality active CODEINE High Criticality active RESULTS Date Observation Value Provider Reference Range Interpretation Location LDL cholesterol, serum 130 mg/dL [facility] LDL cholesterol, serum 174 mg/dL [facility] alanine aminotransferase (SGPT), serum 17 1/L [facility] 0-32 aspartate aminotransferase (SGOT), serum 20 1/L [facility] 0-40 alkaline phosphatase, serum 69 1/L [facility] 39-117 bilirubin, serum, direct 0.08 mg/dL [facility] 0.00-0.40 bilirubin, serum, total 0.4 mg/dL [facility] 0.0-1.2 albumin, serum 4.4 g/dL [facility] 3.8-4.8 protein, total, serum 6.8 g/dL [facility] 6.0-8.5 lipoprotein, beta, serum, point, quantitative, calculated 174 mg/dL [facility] 0-99 High very low density lipoproteins 14 mg/dL [facility] 5-40 HDL cholesterol, serum 57 mg/dL [facility] >39 triglyceride, serum, random 72 mg/dL [facility] 0-149 cholesterol, serum 245 mg/dL [facility] 100-199 High LDL Size 220.0 Angstrom [facility] > OR = 217.4 LDL particle concentration (lipoprotein panel), risk categories correspond to NCEP categories for LDL cholesterol (on a percentile equivalent basis) 1557 nmol/L [facility] 732-2035 cholesterol, non-HDL, total 193 MG/DL (CALC) [facility] <130 High cholesterol/HDL ratio, serum, percent 4.9 calc [facility] <5.0 LDL cholesterol, serum 176 MG/DL (CALC) [facility] <100 High triglyceride, serum, fasting 66 mg/dL [facility] <150 HDL cholesterol, serum 50 mg/dL [facility] >50 Low cholesterol, serum 243 mg/dL [facility] <200 High platelet count 254 10*3/uL [facility] centerobdulio Montes hematocrit, blood 40.6 % [facility] international normalized ratio (INR) 1.0 [facility] platelet count 230 10*3/uL Patricebanner gold[facility] medical centerobdulio Montes hematocrit, blood 39.9 % Kathia Montes LDL cholesterol, serum 140 mg/dL [facility] cholesterol, serum 206 mg/dL Kathia Montes alanine aminotransferase (SGPT), serum 24 1/L Kathia Montes aspartate aminotransferase (SGOT), serum 23 1/L Kathia Montes creatinine, serum 0.72 mg/dL Kathia Montes potassium, serum 3.7 mmol/L Kathia Montes sodium, serum 137 mmol/L Kathia Montes HISTORY OF MEDICATION USE Medication Status Instructions Dates Provider Indications Com ments estradiol-levonor gestrel active Kyaron Alvarenga vitamin d active otc Ermias Chau RN Praluent Pen 150 mg/mL pen injector active INJECT 1 PEN UNDER THE SKIN EVERY 2 WEEKS Radha Randall Praluent Pen 150 mg/mL pen injector completed INJECT 1 PEN INJECTOR SUBCUTANEOUS ONCE EVERY 2 WEEKS - Ewa Joshi Praluent Pen 150 mg/mL pen injector completed Inject 1 ml subcutaneously once every two weeks - Sumaya Neri Elevated Lipoprotein( a) ezetimibe 10 mg tablet completed Take 1 tablet by mouth at bedtime - Gerda Eastman Repatha SureClick 140 mg/mL pen injector completed Inject 140 mg subcutaneously every two weeks - Gerda Eastman metoprolol tartrate 25 mg tablet completed 1/2 tablet twice a day - Ermias Chau RN famotidine 40 mg tablet active TAKE 1 TABLET BY MOUTH TWICE DAILY Rosa Maria Cardona hyoscyamine sulfate 0.125 mg tablet active TAKE 2 TABLETS BY MOUTH THREE TIMES DAILY Rosa Maria Cardona cyanocobalamin (vitamin B-12) 1,000 mcg/mL solution completed INJECT 1 ML UNDER THE SKIN EVERY MONTH - Ermias Chau RN [employer] unspecified unspecified active Inhale 2 puff as directed twice a day Rosa Maria Cardona colestipol tablet active tablet by mout h twice a day Cortney Wynn ipratropium-albut erin unspecified unspecified active mcg as directed twice a day Cortney Wynn esomeprazole magnesium 40 mg capsule,delayed release(/EC) active capsule by mouth twice a day Cortney Wynn Vitamin D2 completed capsule by mouth once a week 50,000 units 1x a week - Ermias Chau RN ZETIA 10 MG ORAL TABLET completed one daily - Gabino Rafael SYMBICORT 160-4.5 MCG/ACT INHALATION AEROSOL completed Two puffs twice a day - Gabino [facility] NORTRIPTYLINE HCL 25 MG ORAL CAPSULE completed One capsule daily - Gabino [facility] NIASPAN 1000 MG ORAL TABLET EXTENDED RELEASE completed 2 tablets daily - Gabino [facility] CRESTOR 40 MG ORAL TABLET completed ONE TAB. DAILY - Gabino [facility] CYCLOBENZAPRINE HCL 10 MG ORAL TABLET completed One tablet at bedtime as needed - Gabino [facility] PREMARIN TABLET completed Take 1 tab twice a week - Gabino [facility] NAPROXEN 500 MG ORAL TABLET completed Take 1 tab twice daily as needed - Gabino [facility] EVENING PRIMROSE OIL 1000 MG ORAL CAPSULE completed Take 1 tab daily in evening time - [facility] VITAMIN E 400 UNIT ORAL TABLET completed Take 1 tab twice daily - [facility] VITAMIN D3 12204 UNIT ORAL TABLET completed TAke 1 tab once a week - Gabino Rafael DIGL completed daily - Lidia Goyal PROBIOTIC + OMEGA-3 CAPS active once a day Cortney Wynn OLIVE LEAF EXTRACT CAPSULE completed daily - Lidia Goyal FENCOM completed control - Lidia Goyal IBUPROFEN 600 MG ORAL TABLET completed 4 times daily - Ara Medel METOCLOPRAMIDE HCL 5 MG ORAL TABLET completed one tab at hs - Ara Medel FAMOTIDINE 20 MG ORAL TABLET completed twice daily - Ara Medel PRAVASTATIN SODIUM 20 MG ORAL TABLET completed ONE TAB. DAILY - Ara Medel SOCIAL HISTORY Date Observation Value Provider drug use none Amor Laird MD alcohol use no Amor Laird MD smoking, year quit 2018 Amor burciaga MD number of years as a smoker 10+ Amor Laird MD smoking history, tot al pack/day 1 Amor Laird MD cigarette use yes Amor Laird MD smoking status Former smoker Amor Laird MD social history reviewed E&M revi ewed - no changes required Amor Laird MD physical exercise, frequency, days per week no Rosa Salgado caffeine use, averag e drinks per day 1+ Rosa Salgado smoking, year quit 2018 Rosa Yaya iams number of years as a smoker 10+ Rosa Salgado smoking history, tot al pack/day 1 Rosa Salgado cigarette use yes Rosa Salgado smoking status Former smoker Rosamahi khanna social history E&M S moking History: P karmen currently smokes every day. P karmen has been counseled to quit. mAor Laird MD social history reviewed E&M revi ewed - no changes required Amor Laird MD physical exercise, frequency, days per week no Muna Peralta caffeine use, averag e drinks per day 1+ Muna Peralta smoking/tobacco cess ation, patient education and counseling yes Muna Peralta smoking, year quit 2019 Muna Peralta number of years as a smoker 10+ Muna Peralta smoking history, tot al pack/day 1 Muna Peralta cigarette use yes Muna su smoking status Current every day smoker R carola Peralta social history reviewed E&M revi ewed - no changes required Benoit Cates MD social history E&M S moking History: P karmen currently smokes every day. P atdangelo has been counseled to quit. Yesika Sinclair social history reviewed E&M revi ewed - no changes required Yesika Sinclair physical exercise, frequency, days per week no Cortney Wynn caffeine use, averag e drinks per day 1+ Cortney Wynn smoking/tobacco cess ation, patient education and counseling yes Cortney Wynn smoking, year quit 2019 Cortney Wynn number of years as a smoker 10+ Cortney Wynn smoking history, tot al pack/day 1 Cortney [place] cigarette use yes Cortney Doty carmine smoking status Current every day smoker Denzel srivastava Wynn social history reviewed E&M revi ewed - no changes required [facility] social history E&M Smoking Histo ry: P karmen currently smokes every day. P karmen has been counseled to quit. [facility] smoking/tobacco cess ation, patient education and counseling yes [facility] physical exercise, frequency, days per week no [facility] caffeine use, averag e drinks per day 1+ [facility] smoking, year quit 2019 [facility] number of years as a smoker 10+ [facility] smoking history, tot al pack/day 1 [facility] cigarette use yes [facility] smoking status Current every day smoker A wes [facility] social history reviewed E&M revi ewed - no changes required [facility] physical exercise, frequency, days per week no Jazzy Vik caffeine use, averag e drinks per day 1+ Randastjony Vik smoking, year quit 2019 Chastity Vik number of years as a smoker 10+ Chastity Vik smoking history, tot al pack/day 1 Jazzy Chery cigarette use yes Jazzy Chery smoking status Former smoker Jazzy flores social history E&M Smoking Histo ry: P karmen is a former smoker. Gabino [facility] social history reviewed E&M revi ewed - no changes required [facility] smoking, year quit 2018 [facility] physical exercise, frequency, days per week no [facility] caffeine use, averag e drinks per day 1+ [facility] number of years as a smoker 10+ [facility] smoking history, tot al pack/day 1 [facility] cigarette use yes Gabino [facility] smoking status Former smoker Gabino [facility] alcohol use no Amor Laird MD social history reviewed E&M revi ewed - no changes required Amor Laird MD physical exercise, frequency, days per week no Lidia Goyal caffeine use, averag e drinks per day 1+ Lidia Goyal smoking/tobacco cess ation, patient education and counseling yes Lidia Goyal number of years as a smoker 10 years or m ore Lidia Goyal smoking history, tot al pack/day 1 Lidia Goyal cigarette use yes Lidia juarez smoking status Current every day smoker Sadie Goyal social history E&M Smoking Histo ry: P karmen currently smokes every day. P karmen has been counseled to quit. Gabino [facility] social history reviewed E&M revi ewed - no changes required Amor Laird MD smoking history, tot al pack/day 1 Amor Laird MD cigarette use yes Lidia juarez physical exercise, frequency, days per week no Lidia Goyal alcohol use, average drinks per day social basis only Lidia Goyal alcohol use no Lidia Martinez cristin caffeine use, averag e drinks per day 1+ Gabino [facility] smoking/tobacco cess ation, patient education and counseling yes Lidia Goyal drug use none Lidia amaral smoking status Current every day smoker Magalie brett Laird MD social history reviewed E&M reviewed Laurence Hannon MD social history E&M Marital Statu s: Single L chasity with family/friends E thnicity: Laurence Hannon MD drug use none Laurence Hannon MD social history reviewed E&M reviewed Laurence Hannon MD smoking status smoker - current status unknown Ara Medel smoking/tobacco cess ation, patient education and counseling yes Laurence Hannon MD physical exercise, frequency, days per week no [facility] caffeine use, averag e drinks per day yes [facility] alcohol use, average drinks per day social basis only [facility] number of years as a smoker 10 years or m ore [facility] smoking status Smoker [facility] caffeine use, averag e drinks per day yes Leonel Maldonado RN alcohol use, average drinks per day social Leonel Maldonado RN smoking status Smoker Leonel Maldonado RN social history reviewed E&M reviewed Leonel Maldonado RN MENTAL STATUS Date Observation Value Provider assessment of judgme nt and insight E&M Alert and oriented to time, place and person. Mood and affect are normal. Laurence Hannon MD assessment of judgme nt and insight E&M Alert and oriented to time, place and person. Mood and affect are normal. Laurence Hannon MD assessment of judgme nt and insight E&M Alert and oriented to time, place and person. Mood and affect are normal. Leonel Maldonado RN FAMILY HISTORY Family Member Condition Mother MS female <65 Maternal Grandmother Family History of C oronary Artery Disease: Maternal Grandfather Family History of C oronary Artery Disease: Uncle Family History of Co ronary Artery Disease: Aunt Family History of Co ronary Artery Disease: Mother Family History Coron narayan Heart Disease female < 65: INSURANCE PROVIDERS Payer name Policy type / Coverage type Ca red green party ID [employer] Other [id number] ADVANCE DIRECTIVES Name Date DISCUSSED - NO DECISION MADE TREATMENT PLAN Date Name Performer [id number],B, No CP or SOB Her updated medication list for this problem includes: Metoprolol Tartrate 25 Mg Tablet (Metoprolol tartrate) ..... 1/2 tablet twice a day Juanpablo Sofie [id number],B,L DL 96 on Praluent. will continue current meds. Cannot tolerate statins. Her updated medication list for this problem includes: Praluent Pen 150 Mg/ml Pen Injector (Alirocumab) ..... Inject 1 pen under the skin every 2 weeks Juanpablo Carrizales [id number],S,I ntolerant of statins. F balwinder on Zetia. R emains very high (LDL 169). W ill send script for Repatha. Benoit Cates MD [id number],S, Benoit mesa MD [id number],S, Benoit mesa MD [id number],S,I ntolerant of statins. F balwinder on Zetia. R emains very high (LDL 169). Benoit Cates MD [id number],S,I nappropriate sinus tach. T ry low dose BB. Benoit Cates MD [id number],S, P t quit smoking in 03/2019. Amor Laird MD [id number],C, LDL is 180 on Zetia. She cannot tolerate statins, specifically Pravastatin and Crestor. We will prescribe Praluent. Her updated medication list for this problem includes: Praluent Pen 150 Mg/ml Pen Injector (Alirocumab) ..... Inject 1 pen injector subcutaneously once every two weeks inject 150 mg subcutaneously once every two weeks Ezetimibe 10 Mg Tablet (Ezetimibe) ..... 1 tablet once a day Amor Laird MD [id number],C,T he pt continues to have episodes of tachycardia with mild exertion. We discussed trying low dose Metoprolol she prefers to hold off at this time. L Amor Laird MD [id number],C,T he pt continues to have episodes of tachycardia with mild exertion. We discussed trying low dose Metoprolol she prefers to hold off at this time Amor Laird MD Cardiology Amor Laird MD Cardiology:The Patie nt was reencouraged to stop smoking. Amor Laird MD Cardiology: H er updated medication list for this problem includes: Praluent Pen 150 Mg/ml Pen Injector (Alirocumab) ..... Inject 1 pen under the skin every 2 weeks Amor Laird MD Cardiology:Stress te st and echo are normal. EF 65%. She is back on her praluent. She would like to obtain a coronary calcium score to further assess any calcification in the heart. Amor Laird MD Cardiology: I nappropriate sinus tach. Yoandy [place] Cardiology Yoandy [place] [facility]: H er updated medication list for this problem includes: Praluent Pen 150 Mg/ml Pen Injector (Alirocumab) ..... Inject 1 pen under the skin every 2 weeks Yoandy Skelton Cardiology:having ty pical chest pain, arrange for nuclear stress test Yoandy Acostaty Cardiology:Having ty pical chest pain, r/o ischemia with exercise cardiolite stress e valuate LVEF and wall motion with echo Yoandy Skelton Cardiology: No CP or SOB Her updated medication list for this problem includes: Metoprolol Tartrate 25 Mg Tablet (Metoprolol tartrate) ..... 1/2 tablet twice a day Juanpablo Carrizales Cardiology:LDL 96 on Praluent. will continue current meds. Cannot tolerate statins. Her updated medication list for this problem includes: Praluent Pen 150 Mg/ml Pen Injector (Alirocumab) ..... Inject 1 pen under the skin every 2 weeks Juanpablo Carrizales Cardiology:Intoleran t of statins. F balwinder on Zetia. R emains very high (LDL 169). W ill send script for Repatha. Benoit Cates MD Cardiology Benoit Cates MD Cardiology Benoit Cates MD Cardiology:Intoleran t of statins. F balwinder on Zetia. R emains very high (LDL 169). Benoit Cates MD Cardiology:Inappropr iate sinus tach. T ry low dose BB. Benoit Cates MD Cardiology: P t quit smoking in 03/2019. Amor Laird MD Cardiology: LDL is 1 80 on Zetia. She cannot tolerate statins, specifically Pravastatin and Crestor. We will prescribe Praluent. Her updated medication list for this problem includes: Praluent Pen 150 Mg/ml Pen Injector (Alirocumab) ..... Inject 1 pen injector subcutaneously once every two weeks inject 150 mg subcutaneously once every two weeks Ezetimibe 10 Mg Tablet (Ezetimibe) ..... 1 tablet once a day Amor Laird MD Cardiology:The pt co ntinues to have episodes of tachycardia with mild exertion. We discussed trying low dose Metoprolol she prefers to hold off at this time. Cristin Laird MD Cardiology:The pt co ntinues to have episodes of tachycardia with mild exertion. We discussed trying low dose Metoprolol she prefers to hold off at this time Amor Laird MD TeleHealth:Will resu me Zetia (LDL was 130). CHOL: 190 (02/03/2020) HDL: 37 (02/03/2020) LDL: 130 (02/03/2020) TRI: (02/03/2020) Gabino Hall TeleHealth:Continues to have palpitations. She had a recent CP admission and MS was ruled out. Stress test in the summer was normal. We discussed ILR and she will consider it further after GI workup is complete. She will contact us after her GI workup. Gabino [facility] TeleHealth:Continues to have palpitations. She had a recent CP admission and MS was ruled out. Stress test in the summer was normal. We discussed ILR and she will consider it further after GI workup is complete. Gabino [facility] Cardiology:She has b een on Zetia for 2 months and we will obtain lipid panel and see if she needs PCSK9 inhibitors. CHOL: 245 (06/12/2019) HDL: 57 (06/12/2019) LDL: 174 (06/12/2019) TRI (06/12/2019) Her updated medication list for this problem includes: Zetia 10 Mg Oral Tablet (Ezetimibe) ..... One daily Niaspan 1000 Mg Oral Tablet Extended Release (Niacin (antihyperlipidemic)) ..... 2 tablets daily [facility] Cardiology:Event mon itor showed no evidence of arrhythmia. [facility] Cardiology:Complains of more episodes of left arm and chest discomfort. Had an abnormal stress test last year but CT calcium score was 0. She is reluctant to have cardiac cath and prefers to schedule a stress test. [facility] Cardiology:Complains of more episodes of left arm and chest discomfort. Had an abnormal stress test last year but CT calcium score was 0. She is reluctant to have cardiac cath and prefers to schedule a stress test. [facility] TeleHealth:She was s tarted on Crestor in October 2018 however she could not tolerate it due to muscle aches in her legs, which improved after stopping Crestor. In the past had muscle cramps with Pravastatin. Recent lipid panel last month showed LDL remains high at 174. Will try Zetia and if LDL does not reach target, she will need PCSK9 inhibitor. CHOL: 245 (06/12/2019) HDL: 57 (06/12/2019) LDL: 174 (06/12/2019) TRI (06/12/2019) [facility] TeleHealth:Pt quit smoking in . [facility] TeleHealth:Had an ep isode of palpitations and had to go to the ER. Will obtain telesentry. [facility] Cardiology follow up :Advised ag clairen to quit. [facility] Cardiology follow up :[facility] lipid panel results are pending. [facility] Cardiology follow up :No recent chest pain. Myoview scan showed mild septal wall ischemia however CT coronary calcium score was 0. Will monitor her symptoms. [facility] Cardiology New Patie nt :Orders: C ardioIQ Advanced Lipid Panel with Inflammation ([facility]) (13839) [facility] Cardiology New Patie nt :Orders: E KG (CPT-37683) C omplete Echo (CPT-72169) S tress Exercise Cardiolite (CPT-63465) C T, Coronary Calcium Score (CPT-54197) [facility] Cardiology New Patie nt :Pt was advised to quit. Tried Chantix in the past. Gabino Hall follow up Laurence Hannon MD follow up Laurence Hannon MD follow up: O rders: E KG (CPT-71974) Laurence Hannon MD follow up: T he following medications were removed from the medication list: Pravastatin Sodium 20 Mg Tabs (Pravastatin sodium) ..... One tab. daily BP today: 126/70 Prior BP: 116/81 (11/06/2011) C HOL: 206 (10/03/2011) LDL: 140 (10/03/2011) Laurence Hannon MD follow up: O rders: E KG (CPT-59978) BP today: 126/70 Prior BP: 116/81 (11/06/2011) C HOL: 206 (10/03/2011) LDL: 140 (10/03/2011) HCT: 40.6 (10/19/2011) Creat: 0.72 (10/19/2011) Na+: 137 (10/19/2011) K+: 3.7 (10/19/2011) INR: 1.0 (10/19/2011) Laurence Hannon MD Date Name CT, Coronary Calcium Score Stress Exercise Card iolite Complete Echo LIPID PANEL Complete Echo CT, Coronary Calcium Score LIPID PANEL Stress Exercise Card iolite LIPID PANEL LIPID PANEL Mobile Cardiac Tele HEPATIC FUNCTION ELLIOTT EL LIPID PANEL HEPATIC FUNCTION ELLIOTT EL [facility] Advanced Li pid Panel with Inflammation ([facility]) CT, Coronary Calcium Score Stress Exercise Card iolite Complete Echo [facility] Advanced Li pid Panel with Inflammation ([facility]) HISTORY OF PROCEDURES Procedure Date Procedure Name Provider Procedure Notes S tatus EKG Amor Laird MD completed EKG Amor Laird MD completed EKG Amor Laird MD completed EKG Amor Laird MD completed Cardiolite, 2 units Amor Laird MD c ompleted SPECT Images Amor Laird MD complete d Stress EKG Amor Laird MD completed Event Monitor Amor Laird MD complet ed Stress EKG Ricco Hendrix MD completed Cardiolite, 2 units Ricco Hendrix MD completed SPECT Images Ricco Hendrix MD completed CT- Coronary CA score Amor Laird MD completed EKG Amor Laird MD completed EKG Laurence Hannon MD completed EKG Laurence Hannon MD completed
--- OUTSIDE RECORDS SUMMARY | 2024-04-28 20:15 | XMS_ITS | Clinical Summary ---
Author Organization [facility] Address [address] [place] [address] Phone Care Team Providers Care Book Retailer Name Role Phone Unavailable Primary Care Provider Unavailabl e Allergies Active Allergy Reactions Criticality Noted Date Comments Codeine Nausea and Vomiting High 09/17/2012 Hydromorphone Palpitations Low 03/20/2023 Pravastatin Palpitations,Muscle Pain Medium 09/17/2012 Rosuvastatin Muscle Pain,Palpitations Medium 9 Medications magnesium oxide 400 mg magnesium Tablet Take 400 mg by mouth daily at bedtime. 30 Tablet 1 04/05/2023 Active Praluent Pen 150 mg/mL Pen Injector INJECT 1 PEN UNDER THE SKIN EVERY 2 WEEKS Active esomeprazole (NexIUM) 40 mg Capsule, Delayed Release(E.C.) Take 40 mg by mouth daily. 12/09/2020 Active pantoprazole (PROTONIX) 20 mg Tablet, Delayed Release (E.C.) Take 40 mg by mouth daily. 05/04/2023 Active Active Problems No known active problems Encounters Date Type Department Care Team Description 04/24/2024 External Device Data [facility] ABSTRACTION Provider, Abstract 03/04/2024 External Device Data [facility] ABSTRACTION Provider, Abstract 02/05/2024 External Device Data [facility] ABSTRACTION Provider, Abstract from Last 3 Months Family History Medical History Relation Name Comments No Known Problems Brother 1 No Known Problems Brother 2 No Known Problems Daughter 1 No Known Problems Daughter 2 No Known Problems Father Heart Disease Mother No Known Problems Sister 1 No Known Problems Sister 2 No Known Problems Sister 3 No Known Problems Sister 4 No Known Problems Sister 5 Relation Name Status Comments Brother 1 Alive Brother 2 Alive Daughter 1 Alive Daughter 2 Alive Father Alive Mother Sister 1 Alive Sister 2 Alive Sister 3 Alive Sister 4 Alive Sister 5 Alive Social History Tobacco Use Types Packs/Day Years Used Date Smoking Tobacco: Every Day Cigarettes Smokeless Tobacco: Never Tobacco Cessation:Ready to Q uit: Not Asked; Counseling Given: Not Answered Alcohol Use Standard Drinks/Week Comments Yes 0 (1 standard drink = 0.6 oz pur e alcohol) Socially Comments No Sex and Gender Information Value Date Recorded Sex Assigned at Not on file Legal Sex Female 7:07 PM CDT Gender Identity Not on file Sexual Orientation Not on file Last Filed Vital Signs Vital Sign Reading Time Taken Comments Blood Pressure 127/82 06/11/2023 2:08 PM CDT Pulse 76 06/11/2023 2:08 PM CDT Temperature 36.7 ??C (98 ??F) 06/11/2023 2:08 PM CDT Respiratory Rate 14 06/11/2023 2:08 PM CDT Oxygen Saturation 98% 06/11/2023 2:08 PM CDT Inhaled Oxygen Concentration - - Weight 61.1 kg (134 lb 12.8 oz) 06/11/2023 2:08 PM CDT Height 157.5 cm (5' 2 ) 03/20/2023 2:43 PM SEO CONSULTANT Body Mass Index 24.66 03/20/2023 2:43 PM SEO CONSULTANT Plan of Treatment Health Maintenance Due Date Last Done Comments PNEUMOCOCCAL VACCINE 0-64 YE ARS (1 of 2 - PCV) 1984 HEPATITIS B VACCINES (1 of 3 - 19+ 3-dose series) 1997 CERVICAL CANCER SCREENING 2008 INFLUENZA VACCINE (#1) 2023 COLORECTAL SCREENING 11/10/2023 Colorectal Cancer Screening 11/10/2023 FIT-DNA Q 3 years 11/10/2023 FIT/FOBT Q 1 year 11/10/2023 Flex Sig/CT Colonography Q 5 years 11/10/2023 BREAST CANCER SCREENING 04/10/2024 04/10/2023 DTAP/TDAP/TD VACCINES (2 - T d or Tdap) 07/24/2026 07/24/2016 HPV VACCINES Aged Out No longer eligi ble based on patient's age to complete this topic Procedures Procedure Name Priority Date/Time Associated Diagnosis Comments MAMMO BILAT DIAGNOSTIC Routine 04/10/2023 2:28 PM SEO CONSULTANT from Last 3 Months or Most Recently Relevant to Health Maintenance Results * MAMMO BILAT DIAGNOSTIC (04/10/2023 2:28 PM SEO CONSULTANT) Anatomical Region Laterality Modality Breast Bilateral Other David Baptiste MD MAMMO ORDERABLES Final Result from Last 3 Months or Most Recently Relevant to Health Maintenance Insurance [employer] O OPEN ACCESS [employer] OPEN ACCESS
--- OUTSIDE RECORDS SUMMARY | 2024-04-28 20:15 | XMS_ITS | Clinical Summary ---
Author Organization [address] Address [address] [place] [id number] Care Team Providers Care Peripheral Edp Equipment Operator Name Role Phone Dc Brooks MD Unavailable Caity Sanabria NP Unavailable Pamela Parekh MD Primary Care Provider [phone] Allergies Active Allergy Reactions Criticality Noted Date Comments Codeine Vomiting Low 05/14/2019 Ezetimibe Unknown High 02/16/2022 Hydromorphone Dizziness,Shortness of breath,Unknown High 06/20/2012 Breathing Difficulty Pravastatin Muscle pain Medium 05/14/2019 Rosuvastatin Muscle pain Medium 01/10/2019 Unclassified Drug Other (See comments) High 02/17/20 22 Medications albuterol HFA (PROVENTIL HFA,VENTOLIN HFA,PROAIR HFA) 90 mcg/actuation inhalerIndicatio ns:Mild intermittent asthma without complication Inhale 2 puffs every 6 (six) hours as needed for wheezing Fill per patient's formulary 1 Inhaler 3 06/04/19 20 Active fluticasone-umec lidin-vilanter (Trelegy Ellipta) 100-62.5-25 mcg inhaler Inhale 1 puff daily 30 each 3 12/31/19 20 Active Additional Information Patient not taking.Reported on 02/14/2024 acidophilus-pect in, citrus 100 million cell-10 mg capsule Take by mouth Activ e lansoprazole (PREVACID) 30 mg capsule Take 30 mg by mouth daily Active vitamin E (AQUASOL E) 400 unit capsule vitamin E 400 unit capsule TK 1 C PO BID Active triamcinolone (Kenalog) 10 mg/mL injection Kenalog 10 mg/mL suspension for injection In office injection administered by the provider Active sucralfate (CARAFATE) 1 gram tablet sucralfate 1 gram tablet Active solifenacin (VESIcare) 10 mg tablet solifenacin 10 mg tablet Active predniSONE (DELTASONE) 20 mg tablet TAKE 3 TABLETS BY MOUTH EVERY DAY FOR 5 DAYS. 02/17/20 21 Active predniSONE (DELTASONE) 20 mg tablet prednisone 20 mg tablet TAKE 3 TABLETS BY MOUTH EVERY DAY FOR 5 DAYS. Active oxybutynin XL (DITROPAN-XL) 10 mg 24 hr tablet oxybutynin chloride ER 10 mg tablet,extended release 24 hr Active omeprazole-sodiu m bicarbonate (ZEGERID) 40-1.1 mg-gram per capsule omeprazole 40 mg-sodium bicarbonate 1.1 gram capsule Take 1 capsule twice a day by oral route. 03/10/20 20 Active nortriptyline (PAMELOR) 10 mg capsule nortriptyline 10 mg capsule TAKE 1 CAPSULE BY MOUTH DAILY Active nitrofurantoin monohydrate (MACROBID) 100 mg capsule TAKE 1 CAPSULE BY MOUTH TWICE DAILY WITH FULL GLASS OF WATER 02/24/20 21 Active nicotine (NICODERM CQ) 21 mg 05/12/19 22 Active neomycin-polymyx in-HC (CORTISPORIN) 3.5-10,000-1 mg/mL-unit/mL-% otic suspension neomycin-polymyxin -hydrocort 3.5 mg-10,000 unit/mL-1 % ear drops,susp INSTILL 4 DROPS INTO THE LEFT EAR THREE TIMES DAILY FOR 5 DAYS Active megestroL 40 mg/mL suspension 05/12/19 22 Active lidocaine (XYLOCAINE) 10 mg/mL (1 %) injection lidocaine (PF) 10 mg/mL (1 %) injection solution In office injection administered by the provider Active famotidine (PEPCID) 40 mg tablet famotidine 40 mg tablet TAKE 1 TABLET BY MOUTH TWICE DAILY Active ezetimibe (ZETIA) 10 mg tablet ezetimibe 10 mg tablet TAKE 1 TABLET BY MOUTH DAILY 03/10/[address] (NexIUM) 40 mg capsule 03/23/20 21 Active ergocalciferol (VITAMIN D) 50,000 unit capsule Take 50,000 Units by mouth 04/17/19 22 Active dicyclomine (BENTYL) 10 mg capsule dicyclomine 10 mg capsule TAKE ONE CAPSULE BY MOUTH FOUR TIMES DAILY NEEDED 04/02/18 70 Active colestipoL (COLESTID) 1 gram tablet colestipol 1 gram tablet Active cholestyramine (QUESTRAN) 4 gram packet cholestyramine (with sugar) 4 gram oral powder DISSOLVE 4 GRAMS IN 2 TO 6 OZ OF WATER OR NON-CARBONATED BEVERAGE AND TAKE BY MOUTH TWICE DAILY 10/03/19 21 Active cetirizine (ZyrTEC) 10 mg capsule Zyrtec 10 mg capsule Take by oral route. Active buPROPion SR (WELLBUTRIN SR) 150 mg 12 hr tablet Take 150 mg by mouth 2 (two) times a day 04/12/19 22 Active budesonide-formo teroL (SYMBICORT) 160-4.5 mcg/actuation inhaler Symbicort 160 mcg-4.5 mcg/actuation HFA aerosol inhaler INL 2 PFS PO TWICE DAILY. RM WITH WATER AFTER USE. DO NOT SWALLOW Active benzonatate (TESSALON) 100 mg capsule TAKE 1 CAPSULE BY MOUTH EVERY 8 HOURS NEEDED 03/17/20 21 Active albuterol HFA (PROVENTIL HFA,VENTOLIN HFA,PROAIR HFA) 90 mcg/actuation inhalerIndicatio ns:Mild intermittent asthma without complication Inhale 2 puffs every 6 (six) hours as needed for wheezing or shortness of breath Fill per patient formulary 1 each 05/18/19 22 Active Additional Information Patient not taking.Reported on 09/04/2023 traMADoL (ULTRAM) 50 mg tablet TAKE 1 TABLET BY MOUTH EVERY 8 TO 12 HOURS NEEDED 12/29/19 22 Active tiZANidine (ZANAFLEX) 2 mg tablet Take by mouth every 12 (twelve) hours as needed 12/15/19 22 Active orphenadrine ER (NORFLEX) 100 mg 12 hr tablet orphenadrine citrate ER 100 mg tablet,extended release 01/12/20 22 Active metoprolol tartrate (LOPRESSOR) 25 mg immediate release tablet metoprolol tartrate 25 mg tablet TAKE 1/2 TABLET BY MOUTH TWICE DAILY 07/05/19 22 Active ketoconazole (NIZORAL) 2 % cream ketoconazole 2 % topical cream APPLY TOPICALLY TO THE AFFECTED AREA EVERY DAY Active fluconazole (DIFLUCAN) 150 mg tablet Take 150 mg by mouth as directed 12/27/19 22 Active ferrous sulfate 325 mg (65 mg of elemental iron) tablet FeroSul 325 mg (65 mg iron) tablet TAKE 1 TABLET BY MOUTH EVERY MORNING Active evolocumab (Repatha SureClick) 140 mg/mL pen injector Repatha SureClick 140 mg/mL subcutaneous pen injector ADMINISTER 140 MG UNDER THE SKIN EVERY 2 WEEKS 07/05/19 22 Active cyanocobalamin (Vitamin B-12) 1,000 mcg/mL injection Dodex 1,000 mcg/mL injection solution ADMINISTER 1 ML UNDER THE SKIN EVERY WEEK 04/02/18 70 Active celecoxib (CeleBREX) 100 mg capsule celecoxib 100 mg capsule TAKE 1 CAPSULE BY MOUTH TWICE DAILY NEEDED Active butalbital-aceta minophen-caffein e (ESGIC) 50-325-40 mg per tablet butalbital-acetami nophen-caffeine 50 mg-325 mg-40 mg tablet TAKE 1 TABLET TWICE DAILY NEEDED Active bupivacaine HCl (MARCAINE) 0.5 % (5 mg/mL) injection 20 mg Active budesonide-glyco pyr-formoterol 160-9-4.8 mcg/actuation HFA aerosol inhaler every 12 hours 04/02/18 70 Active alirocumab (Praluent Pen) 150 mg/mL pen injector Apply topically 04/02/18 70 Active ipratropium-albu teroL (COMBIVENT RESPIMAT) 20-100 mcg/actuation inhaler ipratropium 20 mcg-albuterol 100 mcg/actuation aerosol inhaler Inhale by inhalation route. Active insulin syringe-needle U-100 1 mL 31 gauge x 5/16 syringe insulin syringe U-100 with needle 1 mL 31 gauge x 5/16 USE DIRECTED TO INJECT B12 ONCE WEEKLY Active HYDROcodone-acet aminophen (NORCO) 5-325 mg per tablet Take 1 tablet by mouth every 4 (four) hours as needed for pain 08/09/19 24 Active magnesium oxide 400 mg magnesium tablet Take 400 mg by mouth daily 04/05/19 24 Active simethicone (MYLANTA GAS ORAL) Take by mouth Active amitriptyline (ELAVIL) 25 mg tablet Take 1 tablet (25 mg total) by mouth nightly Active Active Problems Problem Noted Date Diagnosed Date Rash 03/08/2022 Anxiety disorder 02/27/2022 Asthma 02/27/2022 Diarrhea 02/27/2022 Dry skin 02/27/2022 Headache 02/27/2022 Depression 02/27/2022 Gastritis 02/27/2022 Abdominal pain 02/27/2022 Iron deficiency 09/27/2021 Tinea pedis 08/25/2021 Hypoglycemia 06/27/2021 Vitamin B12 deficiency (non anemic) 06/27/2021 Vitamin D deficiency 06/27/2021 COVID-19 05/18/2021 Assessment & Plan (05/18/2021 3:13 PM BUSINESS INVESTOR): I did request the chest x-ray from [facility] in [place]. I have also ordered another chest x-ray and a pulmonary function test. 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 Assessment & Plan (11/05/2019 11:15 AM CDT): The patient was encouraged to decrease her cigarette use per day with ultimate goal of quit smoking. And to set a quit date, patient stated she will attempt this goal within the next 3 months. Palpitations 07/21/2019 Allergic rhinitis 06/04/2019 Bipolar disorder 06/04/2019 Gastroesophageal reflux disease 06/04/2019 Mild intermittent asthma without complication Assessment & Plan (05/18/2021 3:11 PM BUSINESS INVESTOR): The patient was given sample of Breztri to use 2 puffs twice a day. The patient was instructed to rinse her mouth after use. The patient was given a spacer to use with her inhalers. I have ordered albuterol inhaler for the patient to use as needed up to 4 times a day for shortness of breath. I have also ordered a pulmonary function test. Assessment & Plan (11/05/2019 11:17 AM CDT): The patient was provided a month Trelegy trial once daily to determine if this medication works better for her asthma symptoms. The patient was instructed to stop Symbicort while taking Trelegy trial. The patient was instructed to rinse mouth after use. She will call the office if she would like a prescription on Trelegy. Assessment & Plan (06/04/2019 10:51 AM BUSINESS INVESTOR): The patient did have significant improvement following bronchodilators. I will give her a trial of Symbicort 160/4.5 and albuterol MDI to see if this improves her symptoms. Shortness of breath 05/14/2019 Assessment & Plan (05/14/2019 8:43 AM BUSINESS INVESTOR): The patient quit smoking 2 months ago and smoked up to 1 pack of cigarettes a day for 27 years. With her dyspnea on exertion, I will check full PFTs and a 6 minute walk test. Other chest pain 05/14/2019 Assessment & Plan (06/04/2019 10:52 AM BUSINESS INVESTOR): I will hold off on a CT angiogram of the chest at this time since she felt like the chest pain improved after the nebulizer treatment. Assessment & Plan (05/14/2019 8:42 AM BUSINESS INVESTOR): The patient has had a previous cardiac workup which was negative. I will start with a chest x-ray and I suspect that her pain is musculoskeletal. If the x-ray is normal, I would consider a chest CT angiogram. She will return to the office in 2 weeks. Elevated lipoprotein(a) 10/30/2018 Abnormal result of other cardiovascular function study 10/22/2018 Dyslipidemia 11/06/2011 Encounters Date Type Department Care Team Description 04/16/2024 Telephone [facility] [address] [place] [phone] Lashay Carney RN 03/10/2024 Telephone [facility] [address] [place] [phone] Olesya Terrazas RN 02/14/2024 Telephone [facility] [address] [place] [phone] Olesya Terrazas RN from Last 3 Months Immunizations Name Administration Dates Next Due Tdap 07/24/2016 Surgical History Surgery Date Site/Laterality Comments TUBAL LIGATION OVARIAN CYST REMOVAL CHOLECYSTECTOMY ABLATION HYSTERECTOMY UPPER GASTROINTESTINAL ENDOSCOPY COLONOSCOPY OOPHORECTOMY Medical History Medical History Date Comments Constipation Heartburn Gastritis Menopause Family History Medical History Relation Name Comments No Known Problems Father Heart disease Mother Relation Name Status Comments Father Alive Mother Social History Tobacco Use Types Packs/Day Years Used Date Smoking Tobacco: Some Days Cigarettes 0.5 20 Started: 03/02/1999; Last attempted to quit: 03/02/2019 Vaping Smokeless Tobacco: Never Tobacco Cessation:Ready to Q uit: Not Asked; Counseling Given: Not Answered Comments:Pt states she is trying to quit and only smokes some days AUDIT-C Answer Date Recorded Q1: How often do you have a drink containing alc ohol? Never 07/11/2022 Average Number of Drinks Not on file 023 Q3: How often do you have si x or more drinks on one occasion? Never 07/11/2022 Comments Unknown Sex and Gender Information Value Date Recorded Sex Assigned at Not on file Legal Sex Female 9:08 PM BUSINESS INVESTOR Gender Identity Female 07/01/2021 12:01 PM CDT Sexual Orientation Straight 07/01/2021 12 :01 PM CDT Obstetrics History Last Filed Vital Signs Vital Sign Reading Time Taken Comments Blood Pressure 112/79 09/04/2023 3:17 PM CDT Pulse 71 09/04/2023 3:17 PM CDT Temperature 36.5 ??C (97.7 ??F) 11/05/2019 10:41 AM C DT Respiratory Rate 18 05/18/2021 2:44 PM BUSINESS INVESTOR Oxygen Saturation 98% 05/18/2021 2:44 PM BUSINESS INVESTOR Inhaled Oxygen Concentration - - Weight 56.7 kg (125 lb) 02/14/2024 12:21 PM BUSINESS INVESTOR Height 157.5 cm (5' 2 ) 02/14/2024 12:21 PM BUSINESS INVESTOR Body Mass Index 22.86 02/14/2024 12:21 PM BUSINESS INVESTOR Plan of Treatment Health Maintenance Due Date Last Done Comments Colon Cancer Screening-Colonoscopy 1978 Depression Screening 1978 Hepatitis C Screening 1978 Pneumococcal vaccine <65 (1 of 2 - PCV) 1984 Hepatitis B Screening 1996 Regular Well Visit/Exam 18-64 1996 Zoster Vaccine (1 of 2) 1997 Influenza Vaccine (#1) 2023 Breast Cancer Screening-Mammogram 04/11/2024 04/11/2023, 12/21/2021, 07/30/2020 DTaP/Tdap/Td Vaccine (2 - Td or Tdap) 07/24/2026 07/24/2016 HPV Vaccines Aged Out No longer eligi ble based on patient's age to complete this topic Insurance [employer] OPEN ACCESS [employer] OPEN ACCESS [employer] OPEN ACCESS Care Teams Peripheral Edp Equipment Operator Relationship Specialty Start Date End Date Pamela Parekh MD PCP - General Family Medicine 09/04/23 Dc Brooks MD Obstetrics and Gynecology 05/14/19 Caity Sanabria NP Nurse Practitioner Nurse Practitioner 01/12/22
--- OUTSIDE RECORDS SUMMARY | 2024-04-28 20:15 | XMS_ITS | Referral Summary ---
Author Organization [address] Address [address] [address] Care Team Providers Care Warehouse Hand Name Role Phone Dc Brooks MD Unavailable [phone] Caity Sanabria NP Unavailable [phone] Pamela Parekh MD Primary Care Provider [phone] Encounters Date Type Department Care Team Description 04/16/2024 Telephone [facility] [address] [place] [phone] Lashay Carney RN 03/10/2024 Telephone [facility] [address] [place] [phone] Olesya Terrazas, NOEMI 02/14/2024 Telephone [facility] [address] [place] [phone] Olesya Terrazas, NOEMI from Last 3 Months Allergies Active Allergy Reactions Criticality Noted Date [...] EVERY 8 TO 12 HOURS NEEDED 12/29/19 Active tiZANidine (ZANAFLEX) 2 mg tablet Take by mouth every 12 (twelve) hours as needed 12/15/19 Active orphenadrine ER (NORFLEX) 100 mg 12 hr tablet orphenadrine citrate ER 100 mg tablet,extended release 01/12/20 Active metoprolol tartrate (LOPRESSOR) 25 mg immediate release tablet metoprolol tartrate 25 mg tablet TAKE 1/2 TABLET BY MOUTH TWICE DAILY 07/05/19 Active ketoconazole (NIZORAL) 2 % cream ketoconazole 2 % topical cream APPLY TOPICALLY TO THE AFFECTED AREA EVERY DAY Active fluconazole (DIFLUCAN) 150 mg tablet Take 150 mg by mouth as directed 12/27/19 Active ferrous sulfate 325 mg (65 mg of elemental iron) tablet FeroSul 325 mg (65 mg iron) tablet TAKE 1 TABLET BY MOUTH EVERY MORNING Active evolocumab (Repatha SureClick) 140 mg/mL pen injector Repatha SureClick 140 mg/mL subcutaneous pen injector ADMINISTER 140 MG UNDER THE SKIN EVERY 2 WEEKS 07/05/19 Active cyanocobalamin (Vitamin B-12) 1,000 mcg/mL injection Dodex 1,000 mcg/mL injection solution ADMINISTER 1 ML UNDER THE SKIN EVERY WEEK 04/02/18 Active celecoxib (CeleBREX) 100 mg capsule celecoxib 100 mg capsule TAKE 1 CAPSULE BY MOUTH TWICE DAILY NEEDED Active butalbital-aceta minophen-caffein e (ESGIC) 50-325-40 mg per tablet butalbital-acetami nophen-caffeine 50 mg-325 mg-40 mg tablet TAKE 1 TABLET TWICE DAILY NEEDED Active bupivacaine HCl (MARCAINE) 0.5 % (5 mg/mL) injection 20 mg Active budesonide-glyco pyr-formoterol 160-9-4.8 mcg/actuation HFA aerosol inhaler every 12 hours 04/02/18 Active alirocumab (Praluent Pen) 150 mg/mL pen injector Apply topically 04/02/18 Active ipratropium-albu teroL (COMBIVENT RESPIMAT) 20-100 mcg/actuation [...] 05/18/2021 Assessment & Plan (05/18/2021 3:13 PM APPLICATION HELPER): I did request the chest x-ray from [facility] in [place]. I have also ordered another chest x-ray [...] 11/05/2019 Assessment & Plan (05/18/2021 3:11 PM APPLICATION HELPER): The patient was once again encouraged to [...] complication Assessment & Plan (05/18/2021 3:11 PM APPLICATION HELPER): The patient was given sample of Breztri [...] Trelegy. Assessment & Plan (06/04/2019 10:51 AM APPLICATION HELPER): The patient did have significant improvement following bronchodilators. I will give her a trial of Symbicort 160/4.5 and albuterol MDI to see if this improves her symptoms. Shortness of breath 05/14/2019 Assessment & Plan (05/14/2019 8:43 AM APPLICATION HELPER): The patient quit smoking 2 months ago and smoked up to 1 pack of cigarettes a day for 27 years. With her dyspnea on exertion, I will check full PFTs and a 6 minute walk test. Other chest pain 05/14/2019 Assessment & Plan (06/04/2019 10:52 AM APPLICATION HELPER): I will hold off on a CT angiogram of the chest at this time since she felt like the chest pain improved after the nebulizer treatment. Assessment & Plan (05/14/2019 8:42 AM APPLICATION HELPER): The patient has had a previous cardiac workup which was negative. I will start with a chest x-ray and I suspect that her pain is musculoskeletal. If the x-ray is normal, I would consider a chest CT angiogram. She will return to the office in 2 weeks. Elevated lipoprotein(a) 10/30/2018 Abnormal result of other cardiovascular function study 10/22/2018 Dyslipidemia 11/06/2011 Immunizations Name Administration Dates Next Due Tdap 07/24/2016 Social History Tobacco Use Types Packs/Day Years [...] on file Legal Sex Female 9:08 PM APPLICATION HELPER Gender Identity Female 07/01/2021 12:01 PM CDT Sexual Orientation Straight 07/01/2021 12 :01 PM CDT Last Filed Vital Signs Vital Sign Reading Time Taken Comments Blood Pressure 112/79 09/04/2023 3:17 PM CDT Pulse 71 09/04/2023 3:17 PM CDT Temperature 36.5 ??C (97.7 ??F) 11/05/2019 10:41 AM C DT Respiratory Rate 18 05/18/2021 2:44 PM APPLICATION HELPER Oxygen Saturation 98% 05/18/2021 2:44 PM APPLICATION HELPER Inhaled Oxygen Concentration - - Weight 56.7 kg (125 lb) 02/14/2024 12:21 PM APPLICATION HELPER Height 157.5 cm (5' 2 ) 02/14/2024 12:21 PM APPLICATION HELPER Body Mass Index 22.86 02/14/2024 12:21 PM APPLICATION HELPER Plan of Treatment Not on file Insurance [employer] OPEN ACCESS [employer] OPEN ACCESS [employer] OPEN ACCESS Care Teams Warehouse Hand Relationship Specialty Start Date End Date Pamela Parekh MD PCP - General Family Medicine 09/04/23 Dc Brooks MD Obstetrics and Gynecology 05/14/19 Caity Sanabria NP Nurse Practitioner Nurse Practitioner 01/12/22
--- OUTSIDE RECORDS SUMMARY | 2024-04-28 20:15 | XMS_ITS | Clinical Summary ---
Author Organization [facility] Address [address] [place] [address]. [place], [place] [id number] [place] [id number] Care Team Providers Care Dealer Support Technician Name Role Phone Adrian Bryant MD Primary Care Provider [phone] Medications traMADol (ULTRAM) 50 MG tablet TAKE 1 TABLET BY MOUTH EVERY 8 TO 12 HOURS NEEDED 2 Active tiZANidine (ZANAFLEX) 2 MG tablet Take 2 mg by mouth every 12 (twelve) hours as needed. 2 Active ferrous sulfate, 65 mg elemental, 325 (65 FE) MG tablet FeroSul 325 mg (65 mg iron) tablet TAKE 1 TABLET BY MOUTH EVERY MORNING Active cyanocobalamin (B-12) 1000 MCG/ML injection cyanocobalamin (vit B-12) 1,000 mcg/mL injection solution ADMINISTER 1 ML UNDER THE SKIN EVERY WEEK Active orphenadrine ER (NORFLEX) 100 MG TABLET SR 12 HR 12 hr tabletIndicati ons:Myofascial neck pain,Neck pain Take 1 tablet (100 mg total) by mouth 2 (two) times daily. 28 tablet 3 2 Active Active Problems No known active problems Social History Tobacco Use Types Packs/Day Years Used Date Smoking Tobacco: Every Day Cigarettes Smokeless Tobacco: Never Tobacco Cessation:Ready to Q uit: Yes; Counseling Given: Yes Comments Unknown Sex and Gender Information Value Date Recorded Sex Assigned at Not on file Legal Sex Female 4:09 PM CDT Gender Identity Not on file Sexual Orientation Not on file Last Filed Vital Signs Vital Sign Reading Time Taken Comments Blood Pressure 127/87 01/11/2022 1:26 PM CDT Pulse 78 01/11/2022 1:26 PM CDT Temperature 36.4 ??C (97.6 ??F) 01/11/2022 1:26 PM CD T Respiratory Rate - - Oxygen Saturation - - Inhaled Oxygen Concentration - - Weight 58.3 kg (128 lb 9.6 oz) 01/11/2022 1:26 P M CDT Height 157.5 cm (5' 2 ) 01/11/2022 1:26 PM CDT Body Mass Index 23.52 01/11/2022 1:26 PM CDT Plan of Treatment Health Maintenance Due Date Last Done Comments Cervical Cancer Screening Pa p Smear (Age 30 to 64) Every 3 Years 1978 Colorectal Cancer Screening Colonoscopy (10 Years) 1978 Annual Physical 1981 Pneumococcal Vaccine: Pediat rics (0 to 5 Years) and At-Risk Patients (6 to 64 Years) (1 of 2 - PCV) 1984 Hepatitis C 1996 Hepatitis B Vaccines (1 of 3 - 19+ 3-dose series) 1997 Cervical Cancer Screening Pa p with HPV Testing (Age 30 to 64) Every 5 Years 2008 Cervical Cancer Screening with HPV 2008 Mammogram Screening 2018 COVID-19 Vaccine (2023-2 5 season) 2023 Influenza Adult (#1) 2024 DTaP, Tdap and Td Vaccines ( 2 - Td or Tdap) 07/24/2026 07/24/2016 HPV Vaccines Aged Out No longer eligi ble based on patient's age to complete this topic Meningococcal B Vaccine Aged Out No l onger eligible based on patient's age to complete this topic Meningococcal Vaccine Aged Out No fili nuris eligible based on patient's age to complete this topic RSV Immunizations Under 20 Months Aged Out No longer eligible based on patient's age to complete this topic Insurance [employer] [facility] Care Teams Dealer Support Technician Relationship Specialty Start Date End Date Adrian Bryant MD [address] [place] [address] PCP - General INTERNAL MEDICINE 01/11/22
--- OUTSIDE RECORDS SUMMARY | 2024-04-28 20:15 | XMS_ITS | Data Portability ---
Author Organization [place] [facility] [employer] Main Office Address [address] [place] [address] Care Team Providers Care Guyline Operator Name Role Phone CHELI BROCK Primary Care Provider CHELI BROCK Referring Provider Assessment Encounter Date Assessment Date Assessment LastModified by Organization Details LastModified Time 08/10/2022 08/10/2022 The patient has a sprain to her left index finger with a collateral ligament sprain. She is making some progress with time I have advised her to continue on working with range of motion actively and passively. She does pretty well with this at all like she needs any formal therapy. X-rays were unremarkable. She is taking naproxen now she will continue with this as well. This should calm down with time I have advised her she may always have a slight enlargement of the joint due to the injury. No instability of the fingers noted on exam or x-ray. We will give it time I will see her back in a month or 2 if necessary she voiced understanding agrees above plan she will call for any further problems difficulties or questions. Not available 08/10/2022 09:53:56 04/09/2023 04/09/2023 The patient has right shoulder pain due to chronic rotator cuff tendinitis much worse recently. She has tried a long course of conservative measures on her own prior to this visit. We are limited because she cannot take oral anti-inflammator ies she is taking Tylenol currently. We talked about therapy and cortisone she wanted proceed therefore under sterile conditions I injected the patient's right shoulder subacromial space in the office with 4 cc 0.5% bupivacaine and 20 mg of Kenalog. Patient tolerated the procedure well. I will see her back in 6 weeks after course of physical therapy. If her symptoms continue to be significant an MRI scan may be indicated she voiced understanding agrees above plan she will call for any further problems difficulties or questions. Not available 04/09/2023 12:48:08 06/07/2023 06/07/2023 The patient has bilateral sacroiliac pain chronic low back pain. X-rays today appeared unremarkable. If she develops radicular pain we will get an MRI scan she requested cortisone injections therefore under sterile conditions I injected the patient's bilateral sacroiliac bursa in the office with 4 cc 0.5% Marcaine and 20 mg of Kenalog each. Patient tolerated the procedure well. As far as right shoulder goes she has recurrent rotator cuff tendinitis we will do 1 more shot therefore under sterile conditions I injected the patient's right shoulder subacromial space in the office with 4 cc 0.5% Marcaine and 20 mg of Kenalog. Patient tolerated procedure well. 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 I will see her back as needed she voiced understanding agrees above plan she will call for any further problems difficulties or questions. Not available 06/07/2023 14:10:35 09/07/2023 09/07/2023 The patient has chronic low back pain particularly in the sacroiliac regions shots cortisone to give her good relief. She would like to repeat these today therefore under sterile conditions I injected the patient's bilateral sacroiliac bursa in the office with 4 cc 0.5% bupivacaine and 20 mg of Kenalog each. The patient tolerated the procedures well. She will continue with current conservative measures if her symptoms worsen or change she is instructed to call immediately The patient also has chronic right shoulder pain likely due to impingement rotator cuff tendinitis she could have some partial-thicknes s tearing we talked about treatment options we are going to get an MRI scan for pain relief she wanted to do 1 more shot of cortisone I have advised her we can not do too many as it may soften her weaken the tendon. Under sterile conditions I injected the patient's right shoulder subacromial space in the office with 4 cc 0.5% bupivacaine and 20 mg of Kenalog. Patient tolerated the procedure well. I will see her back after the MRI is done of the right shoulder talk further at that time. She voiced understanding agrees above plan she will call for any further problems difficulties or questions. 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 This is chronic in nature. She has not had any formal therapy I have advised her that we really need to do some formal physical therapy she has had a couple of cortisone injections previously that did give her some relief but I have advised her we can not do too many of these as it may worsen the degeneration of the rotator cuff. We are going to give her a short course of oral steroids she seems to tolerate that okay in terms of her GI reaction. She is going to try this we will get her set up for physical therapy to work on strengthening and range of motion I have advised her to do those exercises every day on her own at home as well we will give her some exercise sheets to do on her home program as well. She will do the formal therapy take the oral steroids I will see her back in a couple of months see how she is doing. If her symptoms continue we will talk further. She voiced understanding and agreed with the above plan she will call for any further problems difficulties or questions. Not available 04/03/2024 10:24:29 Plan of Treatment Reminders Order Date Submit Date Provider Last Modified By Organization Details Last Modified Time Details Appointments Follow Up 2024 01:00P Denzel Smith NP Not available Not available Not available Lab None recorded. Referral physical therapist referral - Please contact patient to schedule 2023 024 [facility], [address] [place], [address], 04/09/2023 14:05:22 physical therapist referral - please contact patient to schedule 2024 025 [facility], [address], [place], [address], 04/03/2024 10:40:31 Procedures injection /aspirati on joint/bur sa (PROC) 2023 024 [email or web address] In-Office Order, Internal Use Only DO Not Attach Compendium DO Not Attach Compendium, Do Not Delete/merge, [id number] 04/09/2023 12:39:23 injection /aspirati on joint/bur sa (PROC) - in office procedure , administe red by provider 2023 024 [email or web address] In-Office Order, Internal Use Only DO Not Attach Compendium DO Not Attach Compendium, Do Not Delete/merge, [id number] 06/07/2023 14:11:42 injection /aspirati on joint/bur sa (PROC) 2023 024 [email or web address] In-Office Order, Internal Use Only DO Not Attach Compendium DO Not Attach Compendium, Do Not Delete/merge, [id number] 06/07/2023 16:28:29 injection /aspirati on joint/bur sa (PROC) 2023 024 [email or web address] In-Office Order, Internal Use Only DO Not Attach Compendium DO Not Attach Compendium, Do Not Delete/merge, [id number] 09/07/2023 15:00:53 injection /aspirati on joint/bur sa (PROC) 2023 024 [email or web address] In-Office Order, Internal Use Only DO Not Attach Compendium DO Not Attach Compendium, Do Not Delete/merge, [id number] 09/07/2023 14:54:42 Surgeries None recorded. Imaging XR, hand 2022 023 [email or web address] [facility] [place], [address], [place], [address], 08/10/2022 10:54:47 XR, shoulder, 2 or more view 2023 024 [email or web address] [facility] [place], [address], [place], [address], 04/09/2023 12:48:55 XR, lumbar spine 2023 024 [email or web address] [facility], [address], [place], [address], 06/07/2023 16:28:29 MRI, shoulder, w/o contrast - PLEASE CONTACT PATIENT TO SCHEDULE 2023 024 [facility], [address] [place] [address] , [place], [address], 10/02/2023 18:40:05 Medication Orders bupivacai ne HCl 0.5 % (5 mg/mL) injection solution [address] [id number], [address] [place], [place], [id number], 09/07/2023 14:50:44 Kenalog 10 mg/mL suspensio n for injection 2023 024 [facility] [facility], [address] [place], [place], [id number], 09/07/2023 14:50:22 Kenalog 10 mg/mL suspensio n for injection 2023 024 [facility] [facility], [address], [id number], 09/07/2023 14:50:22 Marcaine 0.5 % (5 mg/mL) injection solution [address] [facility]62029, [address], [place], [place], [id number], 09/07/2023 14:50:44 Kenalog 10 mg/mL suspensio n for injection 2023 024 [email or web address], [address], [place], [place], [id number], 09/07/2023 14:50:22 Marcaine (PF) 0.5 % (5 mg/mL) injection solution [address] [facility]76756, [address], [place], [place], [id number], 09/07/2023 14:50:50 bupivacai ne HCl 0.5 % (5 mg/mL) injection solution [address] [facility] #29036, [address], [place], [place], [id number], 09/07/2023 15:43:21 Kenalog 10 mg/mL suspensio n for injection 2023 024 [address], [address], [id number], 09/07/2023 15:43:21 bupivacai ne HCl 0.5 % (5 mg/mL) injection solution 2023 024 [address], [address] [place], [id number], 09/07/2023 15:43:21 Kenalog 10 mg/mL suspensio n for injection 2023 024 [address], [address], [place], [place], [id number], 09/07/2023 15:43:21 prednison e 10 mg tablets in a dose pack 2024 025 [address] [facility], [address] , [place], [place], [id number], 04/03/2024 10:26:01 Patient TargetsNo targets recorded. Patient InstructionsNo instructions recorded. Reason for Referral Physical Therapist Referral for Pain of right shoulder joint Please contact patient to schedule Referring Physician: Juliette Orona, Orthopedic Surgery, Encounter Date: 04/09/2023 Physical Therapist Referral for Pain of right shoulder joint please contact patient to schedule Referring Physician: Juliette Orona Orthopedic Surgery, Encounter Date: 04/03/2024 Results Created Date Observation Date Name Description Value Unit Range Abnormal Flag Note LastModifiedBy Organization Detail LastModifiedTime 11/02/1911/01/2022 CBC/C OMPLE TE BLD COUNT W/DIF F white blood cells 6.8 x10'3 /uL 4.2-10 .8 Not Available [facility] (Lab) [address] [place], [address], 11/01/2022 14:27:30 11/02/19 23 11/01/2022 CBC/C OMPLE TE BLD COUNT W/DIF F red blood cells 5.06 x10'6 /uL 3.80-5 .20 Not Available [facility] (Lab) [address] [place], [address], 11/01/2022 14:27:30 11/02/19 23 11/01/2022 CBC/C OMPLE TE BLD COUNT W/DIF F hemoglobin 14.9 g/dL 12.0-1 5.6 Not Available [facility] (Lab) [address] [place], [address], 11/01/2022 14:27:30 11/02/19 23 11/01/2022 CBC/C OMPLE TE BLD COUNT W/DIF F hematocrit 43.6 % 35.7-4 5.7 Not Available [facility] (Lab) [address] [place], [address], 11/01/2022 14:27:30 11/02/19 23 11/01/2022 CBC/C OMPLE TE BLD COUNT W/DIF F mean red cell volume 86.2 fL 82.0-9 9.0 Not Available [facility] (Lab) [address] [place], [address], 11/01/2022 14:27:30 11/02/19 23 11/01/2022 CBC/C OMPLE TE BLD COUNT W/DIF F mean red cell hemoglobin 29.4 pg 27.0-3 3.0 Not Available [facility] (Lab) [address] [place], [address], 11/01/2022 14:27:30 11/02/19 23 11/01/2022 CBC/C OMPLE TE BLD COUNT W/DIF F mean RBC HGB concentratio n 34.2 g/dL 31.0-3 6.0 Not Available [facility] (Lab) [address] [place], [address], 11/01/2022 14:27:30 11/02/19 23 11/01/2022 CBC/C OMPLE TE BLD COUNT W/DIF F red cell distribution width 11.9 % 11.8-1 5.5 Not Available [facility] (Lab) [address] [place], [address], 11/01/2022 14:27:30 11/02/19 23 11/01/2022 CBC/C OMPLE TE BLD COUNT W/DIF F platelets 310 x10'3 /uL 150-40 0 Not Available [facility] (Lab) [address] [place], [address], 11/01/2022 14:27:30 11/02/19 23 11/01/2022 CBC/C OMPLE TE BLD COUNT W/DIF F mean platelet volume 10.5 fL 9.0-12 .4 Not Available [facility] (Lab) [address] [place], [address], 11/01/2022 14:27:30 11/02/19 23 11/01/2022 CBC/C OMPLE TE BLD COUNT W/DIF F neutrophils 57.4 % 39.0-7 2.0 Not Available [facility] (Lab) [address] [place], [address], 11/01/2022 14:27:30 11/02/19 23 11/01/2022 CBC/C OMPLE TE BLD COUNT W/DIF F lymphocytes 32.2 % 16.0-4 7.0 Not Available [facility] (Lab) [address] [place], [address], 11/01/2022 14:27:30 11/02/19 23 11/01/2022 CBC/C OMPLE TE BLD COUNT W/DIF F monocytes 7.9 % 5.0-12 .0 Not Available [facility] (Lab) [address] [place], [address], 11/01/2022 14:27:30 11/02/19 23 11/01/2022 CBC/C OMPLE TE BLD COUNT W/DIF F eosinophils 0.9 % 1.0-7. 0 low Not Available [facility] (Lab) [address] [place], [address], 11/01/2022 14:27:30 11/02/19 23 11/01/2022 CBC/C OMPLE TE BLD COUNT W/DIF F basophils 1.0 % 0.0-2. 0 Not Available [facility] (Lab) [address] [place], [address], 11/01/2022 14:27:30 11/02/19 23 11/01/2022 CBC/C OMPLE TE BLD COUNT W/DIF F immature granulocytes 0.6 % 0.00-0 .50 high Not Available [facility] (Lab) [address] [place], [address], 11/01/2022 14:27:30 11/02/19 23 11/01/2022 CBC/C OMPLE TE BLD COUNT W/DIF F neutrophils, absolute count 3.92 x10'3 /uL 1.5-8. 0 Not Available [facility] (Lab) [address] [place], [address], 11/01/2022 14:27:30 11/02/19 23 11/01/2022 CBC/C OMPLE TE BLD COUNT W/DIF F lymphocytes, absolute count 2.20 x10'3 /uL 1.07-3 .43 Not Available [facility] (Lab) [address] [place], [address], 11/01/2022 14:27:30 11/02/19 23 11/01/2022 CBC/C OMPLE TE BLD COUNT W/DIF F monocytes, absolute count 0.54 x10'3 /uL 0.29-0 .99 Not Available [facility] (Lab) [address] [place], [address], 11/01/2022 14:27:30 11/02/19 23 11/01/2022 CBC/C OMPLE TE BLD COUNT W/DIF F eosinophils, absolute count 0.06 x10'3 /uL 0.02-0 .53 Not Available [facility] (Lab) [address] [place], [address], 11/01/2022 14:27:30 11/02/19 23 11/01/2022 CBC/C OMPLE TE BLD COUNT W/DIF F basophils, absolute count 0.07 x10'3 /uL 0.01-0 .08 Not Available [facility] (Lab) [address] [place], [address], 11/01/2022 14:27:30 11/02/19 23 11/01/2022 CBC/C OMPLE TE BLD COUNT W/DIF F immature granulocytes ,absolute 0.04 x10'3 /uL 0.00-0 .05 Not Available [facility] (Lab) [address] [place], [address], 11/01/2022 14:27:30 11/02/19 23 11/01/2022 CBC/C OMPLE TE BLD COUNT W/DIF F nucleated red blood cells 0.0 % -0 Not Available [facility] (Lab) [address] [place], [address], 11/01/2022 14:27:30 11/02/19 23 11/01/2022 CBC/C OMPLE TE BLD COUNT W/DIF F NRBC# 0.00 x10'3 /uL Not Available [facility] (Lab) [address] [place], [address], 11/01/2022 14:27:30 11/02/19 23 11/01/2022 IRON/ TIBC PANEL total iron binding capacity 352 mcg/d L 265-47 5 Not Available [facility] (Lab) [address] [place], [address], 11/01/2022 14:50:22 11/02/19 23 11/01/2022 IRON/ TIBC PANEL % transferrin saturation 34 % 20-55 Not Available [facility] (Lab) [address] [place], [address], 11/01/2022 14:50:22 11/02/19 23 11/01/2022 IRON/ TIBC PANEL unsaturated iron bind capacity 231 mcg/d L 126-38 2 Not Available [facility] (Lab) [address] [place], [address], 11/01/2022 14:50:22 11/02/19 23 11/01/2022 IRON/ TIBC PANEL iron 121 mcg/d L 42-175 Not Available [facility] (Lab) [address] [place], [address], 11/01/2022 14:50:22 11/02/19 23 11/01/2022 COMPR EHENS ESTUARDO METAB OLIC PANEL sodium 136 mmol/ L 137-14 5 low Not Available [facility] (Lab) [address] [place], [address], 11/01/2022 14:49:29 11/02/19 23 11/01/2022 COMPR EHENS ESTUARDO METAB OLIC PANEL potassium 4.5 mmol/ L 3.5-5. 1 Not Available [facility] (Lab) [address] [place], [address], 11/01/2022 14:49:29 11/02/19 23 11/01/2022 COMPR EHENS ESTUARDO METAB OLIC PANEL chloride 103 mmol/ L 98-107 Not Available [facility] (Lab) [address] [place], [address], 11/01/2022 14:49:29 11/02/19 23 11/01/2022 COMPR EHENS ESTUARDO METAB OLIC PANEL carbon dioxide 26 mmol/ L 22-30 Not Available [facility] (Lab) [address] [place], [address], 11/01/2022 14:49:29 11/02/19 23 11/01/2022 COMPR EHENS ESTUARDO METAB OLIC PANEL anion gap 11.5 mmol/ L 14-22 low Not Available [facility] (Lab) [address] [place], [address], 11/01/2022 14:49:29 11/02/19 23 11/01/2022 COMPR EHENS ESTUARDO METAB OLIC PANEL glucose 95 mg/dL 70-99 Not Available [facility] (Lab) [address] [place], [address], 11/01/2022 14:49:29 11/02/19 23 11/01/2022 COMPR EHENS ESTUARDO METAB OLIC PANEL BUN 14 mg/dL 8-19 Not Available [facility] (Lab) [address] [place], [address], 11/01/2022 14:49:29 11/02/19 23 11/01/2022 COMPR EHENS ESTUARDO METAB OLIC PANEL creatinine 0.89 mg/dL 0.66-1 .25 Not Available [facility] (Lab) [address] [place], [address], 11/01/2022 14:49:29 11/02/19 23 11/01/2022 COMPR EHENS ESTUARDO METAB OLIC PANEL GFR >60 Refer ence Range : [place] ge GFR Healt hy Adult : >60 mL/mi n/1.7 3 m2 Chron ic Kidne y Disea se: 15-60 mL/mi n/1.7 3 m2 Kidne y Failu re: <15/m L/min /1.73 m2 www.n iddk. nih.g ov The MDRD study equat ion has not been valid ated in child yesica <18 years of age; pregn ant women ; the elder ly >85 years of age; or in some racia l or ethni c subgr oups, such as Hismn nics. Outsi de the valid ated teresa eters , estim ated GFR is less accur ate, requi ring clini dipika judgm ent on a case- by-ca se basis . Clini dipika inter preta tion for other races and ages must be made by the clini shanta. The MDRD study equat ion has not been valid ated for the evalu ation of serum creat inine relat ed to nutri pipo l statu s or medic ation usage . For perso ns <18 years of age, a pedia tric GFR calcu lator is avail able on the F websi te: https ://kristofer jefferson.pawel bell/pr alen milesal s/kdo qi/gf r_cal culat or Not Available [facility] (Lab) [address] [place], [address], 11/01/2022 14:49:29 11/02/1911/01/2022 COMPR EHENS ESTUARDO METAB OLIC PANEL alkaline phosphatase 59 U/L 38-126 Not Available [facility] (Lab) [address] [place], [address], 11/01/2022 14:49:29 11/02/19 23 11/01/2022 COMPR EHENS ESTUARDO METAB OLIC PANEL alanine aminotransfe rase 24 U/L 0-35 Not Available [facility] (Lab) [address] [place], [address], 11/01/2022 14:49:29 11/02/19 23 11/01/2022 COMPR EHENS ESTUARDO METAB OLIC PANEL aspartate aminotransfe rase 27 U/L 15-37 Not Available [facility] (Lab) [address] [place], [address], 11/01/2022 14:49:29 11/02/19 23 11/01/2022 COMPR EHENS ESTUARDO METAB OLIC PANEL bilirubin, total 0.50 mg/dL 0.20-1 .30 Not Available [facility] (Lab) [address] [place], [address], 11/01/2022 14:49:29 11/02/19 23 11/01/2022 COMPR EHENS ESTUARDO METAB OLIC PANEL calcium 9.4 mg/dL 8.4-10 .2 Not Available [facility] (Lab) [address] [place], [address], 11/01/2022 14:49:29 11/02/19 23 11/01/2022 COMPR EHENS ESTUARDO METAB OLIC PANEL total protein 7.1 g/dL 6.3-8. 2 Not Available [facility] (Lab) [address] [place], [address], 11/01/2022 14:49:29 11/02/19 23 11/01/2022 COMPR EHENS ESTUARDO METAB OLIC PANEL albumin 4.2 g/dL 3.4-5. 0 Not Available [facility] (Lab) [address] [place], [address], 11/01/2022 14:49:29 11/02/19 23 11/01/2022 COMPR EHENS ESTUARDO METAB OLIC PANEL globulin 2.9 g/dL 2.6-4. 2 Not Available [facility] (Lab) [address] [place], [address], 11/01/2022 14:49:29 11/02/19 23 11/01/2022 COMPR EHENS ESTUARDO METAB OLIC PANEL A/G ratio 1.4 ratio 1.0-2. 0 Not Available [facility] (Lab) [address] [place], [address], 11/01/2022 14:49:29 11/02/19 23 11/01/2022 VITAM IN B12 (HARIS DONAVON ) vb12 754 pg/mL 239-93 1 Not Available [facility] (Lab) [address] [place], [address], 11/01/2022 16:26:25 11/02/19 23 11/01/2022 FOLAT E, SERUM /PLAS MA folate 13.3 NG/mL 2.76-2 0.0 Not Available [facility] (Lab) [address] [place], [address], 11/01/2022 16:26:27 11/02/19 23 11/01/2022 VITAM IN D 25-HY DROXY vd25oh 56.4 NG/mL 30-100 Vitam in D Statu s: Defic ient: <20 ng/mL Insuf ficie nt: 20-29 ng/mL Suffi cient : 30-10 0 ng/mL Not Available [facility] (Lab) [address] [place], [address], 11/01/2022 15:48:43 11/02/19 23 11/01/2022 T3 FREE free T3 3.2 pg/mL 2.77-5 .27 Not Available [facility] (Lab) [address] [place], [address], 11/01/2022 15:03:02 11/02/19 23 11/01/2022 T4 FREE free T4 0.92 NG/dL 0.78-2 .19 Not Available [facility] (Lab) [address] [place], [address], 11/01/2022 15:03:03 11/02/19 23 11/01/2022 TSH thyroid-stim ulating hormone 1.650 uIU/m L 0.465- 4.680 Not Available [facility] (Lab) [address] [place], [address], 11/01/2022 15:10:34 11/02/19 23 11/01/2022 BLANE TIN ferritin 27 NG/mL 6.24-1 37 Not Available [facility] (Lab) [address] [place], [address], 11/01/2022 15:11:10 08/11/19 23 XR, hand No observ ation record ed. [email or web address] [facility] [place] [address] [facility] [address], [place], [address], 08/10/2022 09:54:24 04/09/19 24 XR, shoul brenda, 2 or more view No observ ation record ed. [email or web address] [facility] [place] [address] [facility] [address], [place], [address], 04/09/2023 12:48:53 06/07/19 24 XR, lumba r spine No observ ation record ed. [email or web address] [facility] [place] [address] [facility] [address], [place], [address], 06/07/2023 14:11:44 10/02/19 24 MRI, shoul brenda, w/o contr ast [facility] [address] [address] Patien t Name: SAMANTHA RUCKER ion #: [id number] Sex: F : 1980 8 Dictat ed By: Adrien gramajo Attend ing Physic darrell: JULIETTE ORONA Orderi Physic darrell: JULIETTE ORONA Exam Date: 2023 12:46 PM Exam Name: MRI SHOULD ER RT WO Admitt ing Diagno sis(es ): CLINIC AL INFORM ATION: 42 years old, Female ; tendin itis of right rotato r cuff. TECHNI QUE: Multis equenc e multip lanar MRI images of the right should er were obtain ed withou t contra st. COMPAR JACOB: Radiog raphs dated 2023. FINDIN GS: Acromi oclavi cular joint: There is mild acromi oclavi cular hypert rophy and mild-t o-mode rate edema. There is type 1 acromi on. Small to modera te amount of fluid in the subacr omial / subdel toid bursa. Rotato r cuff tendon s: Mild tendin osis of the distal supras pinatu s and infras pinatu s tendon s. Mild articu lar surfac e frayin g of the distal supras pinatu s tendon just proxim al to its insert ion. Subsca pulari s and teres minor tendon s are intact and otherw ise unrema rkable . Biceps tendon : No signif icant tendin osis. No eviden ce of attrit ion or tear. Labrum : No labral tear identi fied. Bones: No fractu re or focal marrow contus ion. Muscle s: Normal muscle bulk. No atroph y. Other: No other signif icant findin gs. IMPRES DAY: 1. Rotato r cuff tendin osis with mild articu lar surfac e frayin g in the distal Page 1 [facility] [address] [place] [address] Patien t Name: SAMANTHA RUCKER ion #: [id number] Sex: F : 1980 8 Dictat ed By: Adrien gramajo Attend ing Physic darrell: ADWOA SEGOVIA Orderi ng Physic darrell: JULIETTE ORONA Exam Date: 2023 12:46 PM Exam Name: MRI SHOULD ER RT WO Admitt ing Diagno sis(es ): supras pinatu s tendon . 2. Mild acromi oclavi cular hypert rophy with mild-t o-mode rate subacr omial / subdel toid bursit is. Electr onical ly Signed by: Adrien gramajo at 2023 15:37: 54 PM Page 2 [facility] (Imaging) [address] [place], [address], 10/03/2023 09:59:39 Result Notes None recorded. Problems Name Problem SNOMED Code Status Onset Date Resolution Date Notes Provider Name and Address Organization Details Recorded Time Hyperchole sterolemia [id number] Active Not Available [facility] 3 00:48:03 Dry skin 04117548 Active Not Available [facility] 3 00:48:03 Asthma 500383790 Active Not Available [facility] 3 00:48:04 Abdominal pain 06085499 Active Not Available [facility] 3 00:48:04 Thyroid nodule 505303847 Active 2021 Not Available [facility] 3 00:48:04 Headache 41993691 Active Not Available [facility] 3 00:48:04 Hypoglycem ia 003560286 Active 2021 Not Available [facility] 3 00:48:04 Vitamin D deficiency 08269756 Active 2021 Not Available [facility] 3 00:48:04 Iron deficiency 38796980 Active 2021 Not Available [facility] 3 00:48:04 Depressive disorder 99270453 Active Not Available [facility] 3 00:48:04 Onychomyco sis 902120969 Active Not Available [facility] 3 00:48:04 Unintentio nal weight loss 796619630 Active Not Available [facility] 3 00:48:04 Gastritis 2181050 Active Not Available [facility] 3 00:48:04 Anxiety 37001231 Active Not Available [facility] 3 00:48:04 Inflammati on of sacroiliac joint 63916743 Active 2019 Not Available [facility] 3 00:48:04 Tinea pedis 6382293 Active 2021 Not Available [facility] 3 00:48:04 Diarrhea 68014877 Active Not Available [facility] 3 00:48:04 Vitamin B12 deficiency (non anemic) 74977638 Active 2021 Not Available [facility] 3 00:48:05 Sacroiliac joint pain 753957345 Active 2022 Padma Angulo PCAS null[place] [facility] 3 09:19:42 Low back pain 637315082 Active 2022 Padma Angulo [facility]AS [place] [facility] 3 09:19:51 Multiple joint pain 98169537 Active 2022 Padma Angulo PCAS [place] [facility] 3 09:20:00 Pain of left hand 3746130323191 03 Active 2022 Padma Angulo PCAS [place] [facility] 3 09:20:42 Sprain of interphala ngeal joint of finger 04856791 Active 2022 NELI Morse [address] [facility] [facility] [address], [place], [address] , [place] [facility] 3 09:55:28 Pain of right shoulder joint 5161993288735 9100 Active 2023 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 Procedures Surgical History Date Name Laterality Status Provider Name and Address Organization Details Recorded Time Cholecystectomy completed Not Available [facility] 05/31/2022 00:43:48 Ablation completed Not Available [facility] 00:43:48 Removal of ovarian cyst(s) completed Not Available [facility] 05/31/2022 00:43:48 Hysterectomy completed Not Available [facility] 05/31/2022 00:43:48 Imaging Results Imaging Date Name Status LastModified by Organiz ation Details LastModified Time 08/10/2022 XR, hand completed [email or web address] [facility] [place] [address], [place], [address], 08/10/2022 09:54:24 04/09/2023 XR, shoulder, 2 or more view completed [email or web address] [facility] [place] [address], [place], [address], 04/09/2023 12:48:53 06/07/2023 XR, lumbar spine completed [email or web address] [facility] [place] [address], [place], [address], 06/07/2023 14:11:44 10/02/2023 MRI, shoulder, w/o contrast completed [address] (Imaging) [address] [place], [address], 10/03/2023 09:59:39 Procedure Notes None recorded. Medical Equipment None Reported. Allergies Allergen ID Allergen Name Allergen Category Reaction Reaction Severity Criticality Documentation Date Start Date Code Code System Note Provider Name and Address Organization Details Recorded Time 460 pravastat in medicatio n Not available Not available Not available 05/31/2022 95538 RxNorm Not Available [facility] 3 00:52:27 461 Dilaudid medicatio n Not available Not available Not available 05/31/2022 57653 3 RxNorm Not Available [facility] 3 00:52:27 462 codeine medicatio n Not available Not available Not available 05/31/2022 2670 RxNorm Not Available [facility] 3 00:52:27 Medications Name Sig Start Date Stop Date Status Note LastModified by Organization Details LastModified Time magnesium oxide 400 (240 mg) mg tabs 09/06 completed Not Available Not Available Not Available amoxicillin 500 mg capsule TK ONE C PO TID TAT 11/15 completed Not Available Not Available Not Available megestrol 400 mg/10 mL (40 mg/mL) oral suspension 06/24 completed Not Available Not Available Not Available bupropion HCl SR 150 mg tablet,12 hr sustained-r elease TAKE 1 TABLET BY MOUTH TWICE DAILY 06/24 completed Not Available Not Available Not Available venlafaxine ER 37.5 mg capsule,ext ended release 24 hr TAKE 1 CAPSULE BY MOUTH DAILY active Not Available Not Available No t Available prednisone 10 mg tablet active Not Available Not Available Not Available nicotine 14 mg/24 hr daily transdermal patch UNWRAP AND APPLY 1 PATCH TO SKIN EVERY DAY 06/24 completed Not Available Not Available Not Available tizanidine 2 mg tablet TAKE 1 TABLET BY MOUTH EVERY 12 HOURS NEEDED 08/10 completed Not Available Not Available Not Available oxybutynin chloride ER 10 mg tablet,exte nded release 24 hr Take 1 tablet every day by oral route. 04/06 completed Not Available Not Available Not Available fluconazole 150 mg tablet TAKE 1 TABLET BY MOUTH AFTER YOU COMPLETE YOUR ANTIBIOTI CS active Not Available Not Available No t Available valacyclovi r 1 gram tablet TAKE 1 TABLET BY MOUTH DAILY FOR 5 DAYS active Not Available Not Available No t Available hydrocodone 5 mg-acetamin ophen 325 mg tablet TAKE 1 TABLET BY MOUTH EVERY 4 HOURS NEEDED FOR PAIN 09/06 completed Not Available Not Available Not Available fluconazole 200 mg tablet active Not Available Not Available Not Available sucralfate 1 gram tablet TAKE 1 TABLET BY MOUTH TWICE DAILY ON AN EMPTY STOMACH active Not Available Not Available No t Available metronidazo le 0.75 % (37.5 mg/5 gram) vaginal gel INSERT ONE APPLICATO RFUL VAGINALLY AT BEDTIME active Not Available Not Available No t Available famotidine 40 mg tablet TAKE 1 TABLET BY MOUTH TWICE DAILY active Not Available Not Available No t Available bupivacaine HCl 0.5 % (5 mg/mL) injection solution Take 40 mg by injection route. 2023 active Not Available Not Available Not Avai lable prednisone 20 mg tablet TAKE 3 TABLETS BY MOUTH EVERY DAY FOR 5 DAYS. 06/01 completed Not Available Not Available Not Available clonazepam 0.5 mg tablet TK 1 T PO QHS 11/15 completed Not Available Not Available Not Available penicillin V potassium 500 mg tablet TK 1 T PO BID FOR 10 DAYS 11/15 completed Not Available Not Available Not Available metronidazo le 500 mg tablet TAKE 1 TABLET BY MOUTH TWICE DAILY FOR 7 DAYS active Not Available Not Available No t Available estradiol 0.05 mg/24 hr semiweekly transdermal patch APPLY 1 PATCH TOPICALLY TO THE SKIN 2 TIMES A WEEK active Not Available Not Available No t Available ciprofloxac in 500 mg tablet TK 1 T PO BID FOR 3 DAYS 11/15 completed Not Available Not Available Not Available peg-electro lyte solution 420 gram oral solution TAKE DIRECTED BY OFFICE. active Not Available Not Available No t Available tramadol 50 mg tablet TAKE 1 TABLET BY MOUTH EVERY 8 TO 12 HOURS NEEDED 08/10 completed Not Available Not Available Not Available triamcinolo ne acetonide 0.1 % topical cream APPLY THIN LAYER TOPICALLY TO THE AFFECTED AREA AT NIGHT 08/10 completed Not Available Not Available Not Available butalbital- acetaminoph en-caffeine 50 mg-325 mg-40 mg tablet TAKE 1 TABLET TWICE DAILY NEEDED 08/10 completed Not Available Not Available Not Available ondansetron 8 mg disintegrat ing tablet DIS 1 T ON THE TONGUE Q 8 H PRF NAUSEA 11/15 completed Not Available Not Available Not Available ketorolac 10 mg tablet TAKE 1 TABLET BY MOUTH EVERY 6 HOURS NEEDED FOR PAIN active Not Available Not Available No t Available pantoprazol e 20 mg tablet,margy yed release TAKE 1 TABLET BY MOUTH 1 TIME 30 MINUTES BEFORE FIRST MEAL 09/06 completed Not Available Not Available Not Available prednisone 10 mg tablets in a dose pack Take 1 tab by mouth, 3 times a day for 3 daysTake 1 tab by mouth 2 times a day for 2 daysTake 1 tab by mouth once a day for 1 day 2024 active Not Available Not Available Not Avai lable nortriptyli ne 25 mg capsule 11/15 completed Not Available Not Available Not Available meloxicam 7.5 mg tablet TAKE 2 TABLETS BY MOUTH ONCE DAILY 11/15 completed Not Available Not Available Not Available amoxicillin 875 mg tablet TAKE 1 TABLET BY MOUTH EVERY 12 HOURS 09/06 completed Not Available Not Available Not Available amitriptyli ne 25 mg tablet active Not Available Not Available Not Available magnesium oxide 400 mg (241.3 mg magnesium) tablet TAKE 1 TABLET BY MOUTH EVERY NIGHT AT BEDTIME 09/06 completed Not Available Not Available Not Available dicyclomine 20 mg tablet TAKE 1 TABLET BY MOUTH FOUR TIMES DAILY active Not Available Not Available No t Available betamethaso ne valerate 0.1 % topical cream APPLY TO AFFECTED AREA 3 TIMES DAILY active Not Available Not Available No t Available Kenalog 10 mg/mL suspension for injection Take 40 mg by injection route. 2023 active [facility]: 0003- 0494- 20 Not Available Not Available Not Available benzonatate 100 mg capsule TAKE 1 CAPSULE BY MOUTH EVERY 8 HOURS NEEDED 06/01 completed Not Available Not Available Not Available hyoscyamine 0.125 mg disintegrat ing tablet CHEW AND SWALLOW 1 TABLET BY MOUTH THREE TIMES DAILY NEEDED FOR ABDOMINAL PAIN 06/01 completed Not Available Not Available Not Available pantoprazol e 40 mg tablet,margy yed release TAKE 1 TABLET BY MOUTH AT BEDTIME FOR 4 WEEKS active Not Available Not Available No t Available hyoscyamine sulfate 0.125 mg tablet TAKE 2 TABLETS BY MOUTH THREE TIMES DAILY 08/10 completed Not Available Not Available Not Available nortriptyli ne 10 mg capsule TAKE ONE CAPSULE BY MOUTH EVERY NIGHT AT BEDTIME 08/10 completed Not Available Not Available Not Available cyanocobala min (vit B-12) 1,000 mcg/mL injection solution ADMINISTE R 1 ML UNDER THE SKIN EVERY WEEK 09/06 completed Not Available Not Available Not Available esomeprazol e magnesium 40 mg capsule,del ayed release TAKE 1 CAPSULE BY MOUTH TWICE DAILY active Not Available Not Available No t Available lansoprazol e 30 mg capsule,del ayed release TAKE ONE CAPSULE BY MOUTH TWICE DAILY 06/24 completed Not Available Not Available Not Available promethazin e 25 mg tablet TAKE 1/2 TABLET BY MOUTH EVERY 6 HOURS NEEDED FOR NAUSEA 08/10 completed Not Available Not Available Not Available orphenadrin e citrate ER 100 mg tablet,exte nded release 08/10 completed Not Available Not Available Not Available nicotine 21 mg/24 hr daily transdermal patch APPLY 1 PATCH ON SKIN DAILY active Not Available Not Available No t Available insulin syringe U-100 with needle 1 mL 31 gauge x / USE ONCE A WEEK WITH -12 08/10 completed Not Available Not Available Not Available ergocalcife rol (vitamin D2) 1,250 mcg (50,000 unit) capsule TAKE 1 CAPSULE BY MOUTH EVERY WEEK 08/10 completed Not Available Not Available Not Available cefuroxime axetil 500 mg tablet TAKE 1 TABLET BY MOUTH TWICE DAILY active Not Available Not Available No t Available levofloxaci n 750 mg tablet TAKE 1 TABLET BY MOUTH DAILY FOR 5 DAYS active Not Available Not Available No t Available albuterol sulfate HFA 90 mcg/actuati on aerosol inhaler INHALE 2 PUFFS BY MOUTH EVERY 4 HOURS NEEDED FOR RESPIRATO RY PROBLEMS active Not Available Not Available No t Available celecoxib 100 mg capsule TAKE 1 CAPSULE BY MOUTH TWICE DAILY NEEDED 08/10 completed Not Available Not Available Not Available ketoconazol e 2 % topical cream APPLY TOPICALLY TO THE AFFECTED AREA EVERY DAY 08/10 completed Not Available Not Available Not Available ondansetron 4 mg disintegrat ing tablet DISSOLVE 1 TABLET ON THE TONGUE EVERY 8 HOURS NEEDED FOR NAUSEA OR VOMITING active Not Available Not Available No t Available cefdinir 300 mg capsule TK 1 C PO Q 12 H 11/15 completed Not Available Not Available Not Available fluoxetine 20 mg capsule TAKE 1 CAPSULE BY MOUTH DAILY active Not Available Not Available No t Available fluticasone propionate 50 mcg/actuati on nasal spray,suspe nsion SHAKE LIQUID AND USE 1 SPRAY IN EACH NOSTRIL TWICE DAILY 09/06 completed Not Available Not Available Not Available clotrimazol e 1 % topical cream APPLY TOPICALLY TO THE AFFECTED AREA THREE TIMES DAILY NEEDED active Not Available Not Available No t Available colestipol 1 gram tablet 06/24 completed Not Available Not Available Not Available dicyclomine 10 mg capsule TAKE ONE CAPSULE BY MOUTH FOUR TIMES DAILY NEEDED 06/24 completed Not Available Not Available Not Available vitamin E 268 mg (400 unit) capsule TK 1 C PO BID 06/24 completed Not Available Not Available Not Available ipratropium bromide 21 mcg (0.03 %) nasal spray USE 2 SPRAYS IN EACH NOSTRIL TWICE DAILY 09/06 completed Not Available Not Available Not Available naproxen 500 mg tablet TAKE 1 TABLET BY MOUTH TWICE DAILY WITH FOOD 08/10 completed Not Available Not Available Not Available amoxicillin 875 mg-potassiu m clavulanate 125 mg tablet TAKE 1 TABLET BY MOUTH TWICE DAILY 08/10 completed Not Available Not Available Not Available neomycin-po lymyxin-hyd rocort 3.5 mg-10,000 unit/mL-1 % ear drops,susp INSTILL 4 DROPS INTO THE LEFT EAR THREE TIMES DAILY FOR 5 DAYS 06/24 completed Not Available Not Available Not Available ezetimibe 10 mg tablet Take 1 tablet every day by oral route. 05/11 completed Not Available Not Available Not Available cyclobenzap rine 5 mg tablet TK 1 T PO Q 8 H 11/15 completed Not Available Not Available Not Available cholestyram ine (with sugar) 4 gram oral powder DISSOLVE 4 GRAMS IN 2 TO 6 OZ OF WATER OR NON-CARBO NATED BEVERAGE AND TAKE BY MOUTH TWICE DAILY 06/24 completed Not Available Not Available Not Available Marcaine (PF) 0.5 % (5 mg/mL) injection solution Take 20 mg by injection route. 09/06 completed Not Available Not Available Not Available metoprolol tartrate 25 mg tablet TAKE /2 TABLET BY MOUTH TWICE DAILY 08/10 completed Not Available Not Available Not Available nitrofurant oin monohydrate /macrocryst als 100 mg capsule TAKE 1 CAPSULE BY MOUTH TWICE DAILY WITH FULL GLASS OF WATER 06/01 completed Not Available Not Available Not Available duloxetine 30 mg capsule,del ayed release TAKE 1 CAPSULE BY MOUTH EVERY NIGHT AT BEDTIME FOR ONE WEEK THEN INCREASE TO 2 CAPSULE BY MOUTH EVERY NIGHT AT BEDTIME 08/10 completed Not Available Not Available Not Available solifenacin 10 mg tablet Take 1 tablet every day by oral route. 05/11 completed Not Available Not Available Not Available Aspir-81 04/06 completed Not Available Not Available Not Available omeprazole 20 mg-sodium bicarbonate 1.1 gram capsule TK 1 C PO QD ON AN EMPTY STOMACH AT LEAST 1 HOUR BEFORE MEALS. SWALLOW WHOLE WITH WATER 11/15 completed Not Available Not Available Not Available omeprazole 40 mg-sodium bicarbonate 1.1 gram capsule Take 1 capsule twice a day by oral route. 06/24 completed Not Available Not Available Not Available mometasone 0.1 % topical solution USE 4 DROPS IN EACH EAR DAILY 09/06 completed Not Available Not Available Not Available lidocaine (PF) 10 mg/mL (1 %) injection solution In office injection administe red by the provider 06/01 completed [facility]: [phone]- [phone]- [phone] Not Available Not Available Not Available lidocaine (PF) 5 mg/mL (0.5 %) injection solution Take 60 mg by injection route. 08/10 completed Not Available Not Available Not Available Symbicort 160 mcg-4.5 mcg/actuati on HFA aerosol inhaler INL 2 PFS PO TWICE DAILY. RM WITH WATER AFTER USE. DO NOT SWALLOW 06/24 completed Not Available Not Available Not Available peg 3350-electr olytes 236 gram-22.74 gram-6.74 gram-5.86 gram solution TAKE DIRECTED BY OFFICE 08/10 completed Not Available Not Available Not Available FeroSul 325 mg (65 mg iron) tablet TAKE 1 TABLET BY MOUTH EVERY MORNING 01/27 completed Not Available Not Available Not Available lubiproston e 8 mcg capsule TAKE 1 CAPSULE BY MOUTH TWICE DAILY WITH FOOD AND WATER active Not Available Not Available No t Available vitamin E (dl, acetate) 180 mg (400 unit) capsule TK 1 C PO BID 06/24 completed Not Available Not Available Not Available Zyrtec 10 mg capsule Take by oral route. 2021 active Not Available Not Available Not Avai lable Probiotic 08/10 completed Not Available Not Available Not Available ipratropium 20 mcg-albuter ol 100 mcg/actuati on aerosol inhaler Inhale by inhalatio n route. 09/06 completed Not Available Not Available Not Available Praluent Pen 150 mg/mL subcutaneou s pen injector INJECT 1 PEN UNDER THE SKIN EVERY 2 WEEKS active Not Available Not Available No t Available Repatha SureClick 140 mg/mL subcutaneou s pen injector ADMINISTE R 140 MG UNDER THE SKIN EVERY 2 WEEKS 08/10 completed Not Available Not Available Not Available Linzess 72 mcg capsule TK ONE C PO AC D 11/15 completed Not Available Not Available Not Available Trelegy Ellipta 100 mcg-62.5 mcg-25 mcg powder for inhalation INL 1 PUFF PO D 06/24 completed Not Available Not Available Not Available Breztri Aerosphere 160 mcg-9mcg-4. 8mcg/actuat ion HFA aerosol inhaler Inhale 2 puffs twice a day by inhalatio n route. 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 04/09/2023 11:57:33 Date Recorded Body height Body mass index (BMI) Body weight Provider Name and Address Organization Details Last Updated DateTime 06/07/2023 157.48 cm 25.6 kg/m2 00779.93 eliu Angulo CNA [facility] [employer] 06/07/2023 13:28:18 Date Recorded Body height Body mass index (BMI) Body weight Provider Name and Address Organization Details Last Updated DateTime 09/07/2023 157.48 cm 23.8 kg/m2 91986.01 eliu Bhatt [facility] [employer] 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 04/03/2024 09:44:34 Social History Question Answer Notes LastModified by Organizat ion Details LastModified Time Tobacco Smoking Status Current Every Day Smoker Not Available [facility] 05/31/2022 00:42:34 What Is Your Level Of Alcohol Consumption? None Information not available 08/10/2022 What Is Your Level Of Caffeine Consumption? None [id number] Information not available 05/31/2022 In The 14 Days Before Symptom Onset, Have You Had Close Contact With A Laboratory-confirm ed COVID-19 While That Case Was Ill? No [id number] Information not available 05/31/2022 In The 14 Days Before Symptom Onset, Have You Had Close Contact With A Person Who Is Under Investigation For COVID-19 While That Person Was Ill? No [id number] Information not available 05/31/2022 What Type Of Diet Are You Following? 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 No [id number] Information not available 05/31/2022 What Is Your Relationship Status? [id number] Information not available 05/31/2022 How Much Tobacco Do You Smoke? 0.5 PPD Information not available 08/10/2022 Do You Use Any Illicit Or Recreational Drugs? No [id number] Information not available 05/31/2022 How Many Years Have You Smoked Tobacco? 20 [id number] Information not available 05/31/2022 Have You Recently Traveled Abroad? No [id number] Information not available 05/31/2022 Do You Have Any Dietary Restrictions? No [id number] Information not available 05/31/2022 Sex: Female Functional Status None recorded. Mental Status None recorded. Family History Relationship Description Onset Age of this Age Resolved Age Notes LastModified by Organization Details LastModified Time Mother Heart disease self [email or web address] Not available 2023 14:51:51 Mother Diabetes mellitus [id number] Not available 05/31/2022 00:43:51 Maternal Grandfather Acute stroke [id number] Not available 05/31/2022 00:43:51 Medical History Condition Response DEPRESSION (INCLUDING POST ) Y GERD/NAUSEA Y URINARY/BLADDER/KIDNEY PROBLEMS Y USE OF NSAIDS Y GI PROBLEMS Y ANXIETY DISORDER Y ANEMIA/BLOOD DISORDER Y ALLERGIES/HAYFEVER Y HIGH CHOLESTEROL / HYPERLIPIDEMIA Y BACK / NECK PROBLEMS Y FIBROMYALGIA Y ARTHRITIS Y HEARTBURN / REFLUX Y Gynecological HistoryNo gynecological history recorded. Obstetrics History GPAL:G 0 P 0 0 0 0 Past Encounters Encounter ID Performer Location Encounter Start Date Encounter Closed Date Diagnosis/Indication Diagnosis SNOMED-CT Code Diagnosis ICD10 Code Diagnosis Note [id number] [facility] [place] [address] [place] [address] 06/01/2020 00:00:00 06/01/2020 15:52:37 [id number] [facility] [place] [address] [place] [address] 08/03/2020 00:00:00 08/03/2020 15:55:30 [id number] [facility] [place] [address] [place] [address] 11/15/2020 00:00:00 11/15/2020 11:27:46 [id number] [facility] [place] [address] [place] [address] 01/13/2021 00:00:00 01/13/2021 11:40:53 [id number] [facility] [place] [address] [place] [address] 06/01/2021 00:00:00 06/01/2021 09:58:34 [id number] [facility] [place] [address] [place] [address] 06/27/2021 00:00:00 06/27/2021 17:14:27 [id number] [facility] [place] [address] [place] [address] 08/25/2021 00:00:00 08/25/2021 18:48:59 [id number] [facility] [place] [address] [place] [address] 09/12/2021 00:00:00 09/12/2021 11:37:10 [id number] [facility] [place] [address] [place] [address] 09/27/2021 00:00:00 09/27/2021 18:35:43 [id number] [facility] [place] [address] [place] [address] 01/27/2022 00:00:00 01/27/2022 14:02:25 [id number] NELI Morse [facility] [place] [address] [place] [address] 08/10/2022 09:02:08 08/10/2022 10:54:47 Sacroiliac joint pain 355147506 M53.3 Low back pain 313902703 M54.50 Multiple joint pain 3567 8005 M25.50 Pain of left hand 930130 8048 53766 M79.642 Sprain of interphalangeal joint of finger 51284240 S63.631A [id number] NELI Morse [facility] [place] [address] [place] [address] 04/09/2023 11:52:44 04/09/2023 12:41:54 Pain of right shoulder joint 3731390088 8956949 M25.511 Tendinitis of right rotator cuff 0283349268 8112754 M67.570 [id number] NELI Morse [facility] [place] [address] [place] [address] 06/07/2023 13:23:59 06/07/2023 15:02:47 Pain of right shoulder joint 6823680222 1937300 M25.511 Tendinitis of right rotator cuff 2249087464 2123882 M67.813 Low back pain 645197275 M54.50 Sacroiliac joint pain 20 4535831 M53.3 [id number] NELI Morse [facility] [facility] [address] [place] [address] 09/07/2023 14:32:10 09/07/2023 15:25:32 Pain of right shoulder joint [id number] M25.511 Tendinitis of right rotator cuff [id number] M67.813 Sacroiliac joint pain 20 [id number] M53.3 [id number] NELI Morse [facility] [address] [place] [address] 04/03/2024 09:39:54 04/03/2024 10:28:08 Pain of right shoulder joint [id number] M25.511 Tendinitis of right rotator cuff [id number] M67.813 Impingemen t syndrome of right shoulder region [id number] M75.41 [id number] [facility] [address] [address] 04/24/2024 10:05:04 04/24/2024 14:01:05 Health Concerns Section Related Observation LastModified by Organization Detai ls LastModified Time None Recorded Concern Status LastModified by Organization Details LastModified Time None Recorded Advance Directives Directive None Recorded Payers Encounter Date Sequence Insurance Name Policy Number Policy Escamilla Covered Member ID Escamilla Member ID Guarantor Name 08/10/2022 1 [employer]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 She states 2-1/2 months ago she was wrestling around with her in a playful fashion when her left index finger got twisted at the PIP joint. The distal finger was bent towards her thumb she had immediate pain at the PIP joint since that time she has had aching pain here with some mild swelling. Some of the swelling has come down she denies any significant loss of motion the finger does feel quite stiff with range of motion however. It is especially stiff in the morning she did splint it for a while on her own however her symptoms continue she has a hard time with pinching or grasping such as trying to open a jar. She has aching pain with activity not so much at rest. She states she never had any angular deformity of the finger no loss of function no neurovascular deficits. She is concerned that her finger continues to hurt at the PIP joint. She comes in today for x-rays to make sure nothing was fractured or dislocated at the time of the injury. She has tried anti-inflammatories soaking the finger and doing splinting and gentle range of motion on her own at home. She states at times the pain is quite severe particularly with trying to do anything heavy repetitive with the finger.Past medical history sheet was reviewed and signed on the intake sheet today's date drug allergies current medications family social history previous surgical history 10 point review of systems was reviewed and discussed in detail today with the patient. NELI Morse [address], [place], [address], [place] 08/10/2022 09:55:58 04/09/2023 text/html patient returns today with a new problem. She has right shoulder pain ongoing for about a year. Over the past 2-3 months it has been much worse she described occasional aching [id number]-rb-isrpmfoc pain that radiate into the upper arm somewhat. This was particularly overhead motion or trying to do anything heavy or repetitive. She sought care through a chiropractor who did some adjustments and other treatments she states this has not really given her much relief or if it did it was only for a few days at a time. She cannot take anti-inflammatories due to inflammatory bowel disease, she has been trying to get by with other conservative measures including Tylenol as well and activity modification. She now states she has trouble raising her arm overhead or behind her back because of her significant discomfort has trouble sleeping at night cannot sleep on that side. She has not had any trauma or injury that she is aware of denies any weakness or loss of motion other than pain mediated. If she fights through it she has good strength and function otherwise. She comes in today for initial evaluation treatment she describes the pain as 10 on a scale 1-10 some days. NELI Morse [address], [place], [address], [place] 04/09/2023 12:49:41 06/07/2023 text/html Patient returns complaining of right shoulder pain and low back pain bilateral sacroiliac regions. She reports a mechanical clunking sensation when she is on her back in flexes her hips. It is difficult to tell the exactly where this is coming from appears to be from the midline of the lumbar spine. It may be 1 of her facet joints shifting or clicking. She denies any radicular pain down the legs no numbness or tingling. She has been working aggressively with a chiropractor I am not sure if this has contributed to that. She also works out tries to strengthen her core bit to help but she is limited because of her low back pain particularly with the sacroiliac regions. She states that cortisone injections into the bilateral sacroiliac regions helped tremendously and allow her to be more active. We will get new x-rays today to make sure there is nothing significant going on with her lumbar spine due to the clicking sensation she has. In the meantime she also is having recurrent right shoulder pain she has rotator cuff tendinitis with some impingement she had a shot of cortisone 3 months ago this was worked very well her in tele or off recently. Talked about the possibly of an MRI scan she is getting ready to go out of town in the meantime she would like a shot of cortisone I have told her we can do 1 more than next time if she continues have pain we will do the MRI scan. She cannot take anti-inflammatories due to inflammatory bowel disease she takes some other supplements that helped a little bit. We are somewhat limited in what we can do with her due to the fact that she cannot take these medications. NELI Morse [address] [place] [address], [place], [address], [place] [facility] [employer] 06/07/2023 14:16:22 09/07/2023 text/html Patient returns with multiple complaints she has right shoulder pain and bilateral sacroiliac pain with low back pain. She has chronic issues with the above complaints I have treated her previously with a couple of previous cortisone injections in her right shoulder for rotator cuff tendinitis which does give her good relief but then she will do things that aggravates her shoulder and it flares up again. She really does not have any weakness but has this chronic issue with pain with almost any motion denies any stiffness or weakness. She does have crepitation through the arc of motion with the shoulder which appears to be in the anterior and subacromial region. Sometimes aching pain will radiate into the upper arm a bit denies any specific trauma or injury. She has been dealing this for a long time I think it is time to get an MRI scan she comes in today to talk about this. She is also complaining of low back pain again shot of cortisone in the bilateral sacroiliac regions do help. She denies any radicular pain no weakness no numbness or tingling or bowel or bladder symptoms. She is aching pain worse with activity somewhat relieved by rest lately it has been worse keeping her awake at night etc. she comes in today requesting cortisone injections bilateral sacroiliac regions again. The patient has chronic inflammatory bowel disease she can not take oral anti-inflammatory medication she has been through physical therapy previously for her back nothing seems to help long-term. New past medical history sheet was reviewed and signed on intake sheet of today's date drug allergies current medications family social history previous surgical history 10 point review of systems was reviewed and discussed in detail today with the patient. It has been 3 months since her last cortisone injections. NELI Morse [address] [facility], [place], [address], [facility] [employer] 09/07/2023 16:05:09 04/03/2024 text/html the patient retu rns for follow up of her right shoulder. I saw her in August of last year, it has been over 6 months since I saw her. I ordered an MRI scan at that time she had the MRI scan done October 01 but never followed up until now. She stated after treatment with a shot of cortisone in activity modification as well as oral anti-inflammatory medication her shoulder had calmed down. However she really can not take oral anti-inflammatories for any amount of time because she has IBS and GERD type symptoms with it. She has seen a transportation project manager he put her on Celebrex for a short course but this also caused GI reaction. She was doing okay until about a month ago when her shoulder pain really started to flare up once again. She denies any new trauma or injury. She has pain particularly overhead motion pain that radiates into the deltoid little bit into the trapezial area as well. She can not sleep on that side or do anything heavy repetitive because of the aching pain that is deep inside the shoulder. The symptoms are essentially the same as they were back in August at that time I thought she likely had impingement with rotator cuff tendinitis. The MRI scan was done reviewed this in detail today with the patient. MRI scan findings show rotator cuff tendinosis with mild articular surface fraying in the distal supraspinatus tendon and some AC joint hypertrophy with mild to moderate subacromial subdeltoid bursitis. I agree with the above findings I do not see a discrete tear otherwise remains unremarkable. Patient comes in today for follow up and further treatment if necessary. NELI Morse [address] [facility], [facility] [address], [place], [address], [facility] [employer] 04/03/2024 10:25:59 OBGyn Episode No OBEpisode recorded.
--- OUTSIDE RECORDS SUMMARY | 2024-04-28 20:16 | XMS_ITS | Referral Summary ---
Author Organization [facility] Address [address] [place] [address] Care Team Providers Care Tavern Keeper Name Role Phone Adrian Bryant MD Primary Care Provider Source Comments [facility],non-audrain medical center Affiliates and Associated Physician Practices is amultiple site organization consisting of ambulatory clinics and hospital sitesin [place], [place], [place] and [place]. This disclosure is being madepursuant to the Care Everywhere program and may not contain all information available regarding this patient. Last updated 17.[facility] [employer] Sim[employer]ified Allergies Active Allergy Reactions Criticality Noted Date Comments Codeine Vomiting High 09/17/2012 Hydromorphone Dizziness,Unknown High 09/17/2012 Pravastatin GI Discomfort,Myalgias Medium 09/17/2012 Rosuvastatin Myalgias 01/10/2019 Medications * Be aware that medications may not be up to date on this document. Alwaysverify current medications with the patient. 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
--- OUTSIDE RECORDS SUMMARY | 2024-04-28 20:16 | XMS_ITS | Patient Health Summary ---
Author Organization [facility] Address [address] [place] [address] Care Team Providers Care Research Compliance Specialist Name Role Phone Adrian Bryant MD Primary Care Provider Note from [facility],non-owned Affiliates and Associated Physician Practices is amultiple site organization consisting of ambulatory clinics and hospital sitesin [place], [place], [place] and [place]. This disclosure is being madepursuant to the Care Everywhere program and may not contain all information available regarding this patient. Last updated 17.[facility] Allergies * Codeine(Vomiting) -High Criticality * Hydromorphone(Dizziness,Unknown) -High Criticality * Pravastatin(GI Discomfort,Myalgias) -Medium Criticality * Rosuvastatin(Myalgias) Medications * Be aware that medications may not be up to date on this document. Alwaysverify current medications with the patient. * esomeprazole (NEXIUM) 40 MG capsule(Started 12/09/2020) * Cholestyramine 4 GM/DOSE(Started 10/02/2020) DISSOLVE 4 GRAMS IN 2 TO 6 OZ OF WATER OR NON-CARBONATED BEVERAGE AND TAKE BY MOUTH TWICE DAILY Active Problems Problem Noted Date Diagnosed Date [...] on file Sexual Orientation Not on file Procedures * CYTOLOGY NON-POLICY MANAGER PANEL(Performed 12/23/2004) * GROSS + MICRO EXAM(Performed 12/23/2004) Results * CYTOLOGY NON-POLICY MANAGER PANEL (12/23/2004 12:43 PM CDT) Result CASE NUMBER [id number] Comment: ORDERING PHYSICIAN ??TERESA BROTHERS SPECIMEN TYPE ?Fluid-lt ovarian cyst Surgeon ?DR. TERESA BROTHERS Physician ?DR. GENESIS COLE Report Text ? INDICATION FOR PROCEDURE ?PELVIC PAIN, OVARIAN MASS OPERATION ?LAPAROSCOPY SPECIMEN ?? LEFT OVARIAN CYST FLUID GROSS RECEIVED - 28 ML CLOUDY PALE PINK FLUID MICROSCOPIC ONE CYTOLOGY THIN PREP SLIDE AND ONE CELL BLOCK SLIDE OF LEFT OVARIAN CYST FLUID SHOW COLUMNAR CELLS AND NUMEROUS MATURE SQUAMOUS CELLS. ??MALIGNANT CELLS ARE NOT IDENTIFIED. ??THE PRESENCE OF SQUAMOUS CELLS IN THE OVARIAN CYST FLUID SUGGEST THE POSSIBILITY OF MATURE TERATOMA. ??CLINICAL CORRELATION REQUIRED. JW/CS DIAGNOSIS ? DIAGNOSIS [1] LEFT OVARIAN CYST FLUID -- ?CHANGES SUGGESTIVE OF A TERATOMA (SEE MICROSCOPIC ?DESCRIPTION) JW/CS Released By ?GENESIS COLE CPT Code ? 13356, 55946 MISCELLANEOUS SAMPLES / Unknown 12/23/2004 12:43 PM CDT 12/23/2004 12:45 PM CDT Historical Provider LAB - PATHOLOGY/C YTOLOGY ORDERABLES * GROSS + MICRO EXAM (12/23/2004 11:35 AM CDT) Result CASE NUMBER [id number] Comment: ORDERING PHYSICIAN ??TEREAS BROTHERS SPECIMEN TYPE ?Ovary cyst-lt Surgeon ?DR. Марина BROTHERS Gross Exam ? NELI HOWARD Gross Report ? COPY TO INDICATION FOR PROCEDURE ?? PELVIC PAIN, OVARIAN MASS OPERATION ?? LAPAROSCOPY GROSS THE SPECIMEN IS RECEIVED IN ONE CONTAINER LABELED WITH THE PATIENT'S NAME AND CONTENTS OF LEFT OVARIAN CYST AND CONSISTS OF A 0.8 X 0.5 X 0.3 CM. AGGREGATE OF SOFT REDDISH SERNA TISSUE AND MATERIAL. ?? ALL SUBMITTED IN A SINGLE CASSETTE. LW/CS MICROSCOPIC EXAM ? MICROSCOPIC SECTIONS OF THE LEFT OVARIAN CYST SHOW MATURE CYSTIC TERATOMA. ??SKIN WITH SQUAMOUS EPITHELIUM, KERATIN AND SEBACEOUS GLANDS ARE SEEN. THERE IS NO NEURAL ELEMENT IDENTIFIED. ??MALIGNANCY IS NOT PRESENT. JW/CS DIAGNOSIS ? 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 42607 MISCELLANEOUS SAMPLES / Unknown 12/23/2004 11:35 AM CDT 12/23/2004 11:36 AM CDT Historical Provider LAB - PATHOLOGY/C YTOLOGY ORDERABLES Care Teams Research Compliance Specialist Relationship Specialty [place] [address] [place] [phone] [facility] - General 11/25/20
--- OUTSIDE RECORDS SUMMARY | 2024-04-28 20:16 | XMS_ITS | Data Portability ---
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 Lab bacterial vaginosis score, VENTURA+probe, vaginal fluid (OBS) 2021 022 [facility] [address], [place], [address], 2 20:07:53 lh + FSH, serum 2022 023 [facility], [address], [place], [address], 3 03:08:21 estradiol, serum 2022 023 [facility], [address], [place], [address], 3 03:08:20 TSH + free T4, serum 2022 023 [facility], 20[address], [address], [place], [address], 3 03:08:18 urinalysis, dipstick 2022 023 [place] [address] In-Office Order, Internal Use Only DO Not Attach Compendium DO Not Attach Compendium, Do Not Delete/merge, [id number] 3 11:40:38 culture, urine 2022 023 TYNAN [facility], [address], [place], [address], 3 03:08:21 HbA1c (hemoglobin A1c), blood 2022 023 YESICA [facility], [address], [place], [address], 3 03:08:19 Referral breast surgery referral 2022 023 [facility], [address], [address], [place], [address], 4 14:11:01 orthopedic surgeon referral 2022 023 [facility], [address], [place], [address], 3 14:17:33 hematologis t referral 2022 023 TYNAN David Baptiste, [address], [place], [address], 3 23:42:08 Procedures None recorded. Surgeries None recorded. Imaging MAMMO, screening, bilateral [address] ([facility]), [address] [place], [address], 2 20:45:10 US, pelvis, transabdomi nal + transvagina l [address] ([facility]), [address] [place], [address], 3 09:05:06 MAMMO, diagnostic, digital, bilateral [email or web address] ([facility]), [address] [place], [address], 3 16:16:29 US, breast, bilateral 2022 023 [facility] ([facility]), [address] [place], [address], 3 17:13:52 US, pelvis, transabdomi nal + transvagina l - follow up CT scan 01/21/23, possible abscess vrs. L. adnexal cyst measuring 24x77mk 2022 023 [facility] ([facility]), [address] [place], [address], 3 09:45:41 US, doppler, arterial 2022 023 [facility] ([facility]), [address] [place], [address], 3 12:42:32 Medication Orders pregabalin 50 mg capsule 2022 023 [id number], [address] , [place], [place], [id number], 3 13:46:16 Patient TargetsNo targets recorded. Patient Instructions Encounter Date Encounter Id Patient Instructions Last Modified By Organization Details Last Modified Time 12/02/2021 [id number] learning about breast cancer screening Not available 12/02/2021 17:10:23 Follow up with PCP and GI for IBS symptoms. Not available 12/14/2021 15:54:06 01/26/2023 [id number] Kya REYNAS discussed case with Lachelle Morris PA-C Not available 01/26/2023 16:55:15 03/15/2023 [id number] Follow up with PCP for abdominal pain, normal CT results [email or web address] Not available 03/30/2023 17:31:14 Kulwinder Mcdonald Discussed with Lachelle Morris PA-C [email or web address] Not available 03/30/2023 17:29:01 Reason for Referral Breast Surgery Referral for Multiple cysts of breast Referring Physician: Rocio Morris, Illusionist, Encounter Date: 11/22/2022 Orthopedic Surgeon Referral for Pain in bilateral lower legs Referring Physician: Adrian Bryant, Internal Medicine, Encounter Date: 02/20/2023 Referring Physician: Adrian Bryant, Internal Medicine, Encounter Date: 02/20/2023 Results Created Date Observation Date Name Description Value Unit Range Abnormal Flag Note LastModifiedBy Organization Detail LastModifiedTime 12/03/19 22 12/10/2021 NUSWA B VG+, HSV atopobium vaginae Low - 0 score Not Available [facility] ([facility]) [address] [place], [address], 12/10/2021 20:07:53 12/03/19 22 12/10/2021 NUSWA B VG+, HSV bvab 2 Low - 0 score Not Available [facility] ([facility]) [address] [place], [address], 12/10/2021 20:07:53 12/03/1912/10/2021 NUSWA B VG+, HSV megasphaera 1 Low - 0 score Calcu late total score by deangelo nowak the 3 indiv idual bacte rial vagin osis (BV) marke r score s toget her. Total score is inter prete d as follo ws: Total score 0-1: Indic ates the absen ce of BV. Total score 2: Indet ermin ate for BV. Addit ional clini dipika data shoul d be evalu ated to estab rebecca a diagn osis. Total score 3-6: Indic ates the prese nce of BV. This test was zackary thomas and its perfo rmanc e diana cteri stics deter mined by [facility]. It has not been clear ed or appro uriel by the Food and Drug Admin istra tion. Not Available [facility] ([facility]) [address] [facility], [place], [address], 12/10/2021 20:07:53 12/03/19 22 12/10/2021 NUSWA B VG+, HSV serena albicans, VENTURA Negati ve negati ve Not Available [facility] ([facility]) [address] [place], [address], 12/10/2021 20:07:53 12/03/19 22 12/10/2021 NUSWA B VG+, HSV serena glabrata, VENTURA Negati ve negati ve Not Available [facility] ([facility]) [address] [place], [address], 12/10/2021 20:07:53 12/03/19 22 12/10/2021 NUSWA B VG+, HSV trich vag by VENTURA Negati ve negati ve Not Available [facility] ([facility]) [address] [place], [address], 12/10/2021 20:07:53 12/03/19 22 12/10/2021 NUSWA B VG+, HSV chlamydia trachomatis, VENTURA Negati ve negati ve Not Available [facility] ([facility]) [address] [place], [address], 12/10/2021 20:07:53 12/03/19 22 12/10/2021 NUSWA B VG+, HSV neisseria gonorrhoeae, VENTURA Negati ve negati ve Not Available [facility] ([facility]) [address] [place], [address], 12/10/2021 20:07:53 12/03/19 22 12/10/2021 NUSWA B VG+, HSV hsv 1 VENTURA Negati ve negati ve Not Available [facility] ([facility]) [address] [place], [address], 12/10/2021 20:07:53 12/03/19 22 12/10/2021 NUSWA B VG+, HSV hsv 2 VENTURA Negati ve negati ve Not Available [facility] ([facility]) [address] [place], [address], 12/10/2021 20:07:53 03/15/20 23 03/16/2023 TSH+F REE T4 TSH 1.720 uIU/m L 0.450- 4.500 Not Available [facility] ([facility]) [address] [place], [address], 03/17/2023 03:08:18 03/15/2003/16/2023 TSH+F REE T4 T4,free(dire ct) 1.30 NG/dL 0.82-1 .77 Not Available [facility] ([facility]) [address] [place], [address], 03/17/2023 03:08:18 03/15/2003/16/2023 HEMOG LOBIN A1C hemoglobin A1C 5.4 % 4.8-5. 6 Predi abete s: 5.7 - 6.4 Diabe kelsey: >6.4 Glyce debi contr ol for adult s with diabe kelsey: <7.0 Not Available [facility] ([facility]) [address] [place], [address], 03/17/2023 03:08:19 03/15/2003/16/2023 ESTRA DIOL estradiol 9.1 pg/mL Adult Femal e Range Folli cular phase 12.5 - 166.0 Ovula tion phase 85.8 - 498.0 Lutea l phase 43.8 - 211.0 Postm enopa usal <6.0 - 54.7 Pregn kirk 1st trime ster 215.0 - >4300 .0 Jeni ECLIA metho dolog y Not Available [facility] ([facility]) [address] [place], [address], 03/17/2023 03:08:20 03/15/20 23 03/16/2023 URINE CULTU RE, ROUTI NE urine culture, routine Final report Not Available [facility] ([facility]) [address] [place], [address], 03/17/2023 03:08:20 03/15/2003/16/2023 URINE CULTU RE, ROUTI NE result 1 Commen t Mixed uroge nital donna 10,00 0-25, 000 colon y formi ng units per mL Not Available [facility] ([facility]) [address] [place], [address], 03/17/2023 03:08:20 03/15/2003/16/2023 FSH AND LH LH 64.0 mIU/m L Adult Femal e Range Folli cular phase 2.4 - 12.6 Ovula tion phase 14.0 - 95.6 Lutea l phase 1.0 - 11.4 Postm enopa usal 7.7 - 58.5 Not Available [facility] ([facility]) [address] [place], [address], 03/17/2023 03:08:21 03/15/2003/16/2023 FSH AND LH FSH 116.0 mIU/m L Adult Femal e Range Folli cular phase 3.5 - 12.5 Ovula tion phase 4.7 - 21.5 Lutea l phase 1.7 - 7.7 Postm enopa usal 25.8 - 134.8 Not Available [facility] ([facility]) [address] [place], [address], 03/17/2023 03:08:21 03/15/20 03/15/2023 urina lysis , dipst ick Leukocytes Negati ve Not Available In-Office Order Internal Use Only DO Not Attach Compendium DO Not Attach Compendium, Do Not Delete/merge, [id number] 03/15/2023 11:30:13 03/15/20 23 03/15/2023 urina lysis , dipst ick Nitrite negati ve Not Available In-Office Order Internal Use Only DO Not Attach Compendium DO Not Attach Compendium, Do Not Delete/merge, [id number] 03/15/2023 11:30:13 03/15/20 23 03/15/2023 urina lysis , dipst ick Urobilinogen .2 Not Available In-Of fice Order Internal Use Only DO Not Attach Compendium DO Not Attach Compendium, Do Not Delete/merge, [id number] 03/15/2023 11:30:13 03/15/20 23 03/15/2023 urina lysis , dipst ick Protein Negati ve Not Available In-Office Order Internal Use Only DO Not Attach Compendium DO Not Attach Compendium, Do Not Delete/merge, [id number] 03/15/2023 11:30:13 03/15/20 23 03/15/2023 urina lysis , dipst ick pH 5.5 Not Available In-Office Order Internal Use Only DO Not Attach Compendium DO Not Attach Compendium, Do Not Delete/merge, [id number] 03/15/2023 11:30:13 03/15/20 23 03/15/2023 urina lysis , dipst ick Blood Non-He molyze d: Trace Not Available In-Office Order Internal Use Only DO Not Attach Compendium DO Not Attach Compendium, Do Not Delete/merge, [id number] 03/15/2023 11:30:13 03/15/20 23 03/15/2023 urina lysis , dipst ick Specific Pollock 1.030 Not Available In-Off ice Order Internal Use Only DO Not Attach Compendium DO Not Attach Compendium, Do Not Delete/merge, [id number] 03/15/2023 11:30:13 03/15/20 23 03/15/2023 urina lysis , dipst ick Ketone Negati ve Not Available In-Office Order Internal Use Only DO Not Attach Compendium DO Not Attach Compendium, Do Not Delete/merge, [id number] 03/15/2023 11:30:13 03/15/20 23 03/15/2023 urina lysis , dipst ick Bilirubin Small Not Available In-Offic e Order Internal Use Only DO Not Attach Compendium DO Not Attach Compendium, Do Not Delete/merge, [id number] 03/15/2023 11:30:13 03/15/20 23 03/15/2023 urina lysis , dipst ick Glucose Negati ve Not Available In-Office Order Internal Use Only DO Not Attach Compendium DO Not Attach Compendium, Do Not Delete/merge, [id number] 03/15/2023 11:30:13 12/22/19 22 12/19/2021 MAMMO , scree kit, bilat eral No observ ation record ed. [email or web address] [facility] [address] [place], [address], 12/22/2021 15:46:02 01/11/20 22 01/10/2022 US, breas t, bilat eral No observ [facility]ion [facility] ed. [facility] [address] [place], [address], 01/11/2022 20:34:09 01/15/20 22 01/14/2022 XR, knee No observ ation record ed. [facility] [address] [place], [address], 11/22/2022 10:57:26 03/25/20 22 03/25/2022 XR, ribs, unila teral No observ ation record ed. [email or web address] [facility] [address] [place], [address], 03/31/2022 06:00:56 10/29/19 23 10/28/2022 CT, abdom en + pelvi s, w/ contr ast No observ ation record ed. [email or web address] [place], [address], 11/02/2022 01:14:05 12/15/19 23 12/14/2022 US, breas t, bilat eral No observ ation record ed. [facility] [address] [place], [address], 12/15/2022 08:50:31 12/15/19 23 12/14/2022 MAMMO , diagn ostic , digit al, bilat eral No observ ation record ed. [address] [place], [address], 01/26/2023 16:43:04 12/15/19 23 12/14/2022 US, pelvi s, trans abdom inal + trans vagin al No observ ation record ed. [address] [place], [address], 01/26/2023 16:43:05 01/22/20 23 01/21/2023 CT, abdom en + pelvi s, w/ contr ast No observ ation record ed. [address] [place], [address], 01/26/2023 16:43:03 02/15/20 23 02/13/2023 US, pelvi s, trans abdom inal + trans vagin al No observ ation record ed. [facility] ([facility]) [address] [place], [address], 03/14/2023 16:39:16 03/08/20 23 03/08/2023 CT, abdom en + pelvi s, w/ contr ast No observ ation record ed. [facility] [address] [place], [address], 03/22/2023 16:44:32 03/27/20 23 03/09/2023 US, doppl er, arter ial No observ ation record ed. [email or web address] Not Available 2023 09:40:54 04/11/19 24 04/10/2023 MAMMO , jacoby pantoja, bilat eral No observ ation record ed. [address], [place], [address], 04/25/2023 05:09:13 05/02/19 24 05/01/2023 XR, chest No observ ation record ed. [address] [place], [address], 05/02/2023 11:53:35 07/20/19 24 07/20/2023 CT, abdom en + pelvi s, w/ contr ast No observ ation record ed. [address] ([facility]) [address] [place], [address], 08/05/2023 20:11:27 10/15/19 24 10/12/2023 trans -thor acic echoc ardio gram (TTE) (PROC ) No observ ation record ed. [address] [facility] [address], [place], [address], 10/17/2023 05:51:10 01/04/20 24 01/04/2024 cardi ac stres s test No observ ation record ed. [address] [facility] [address], [place], [address], 01/08/2024 11:54:07 Result Notes None recorded. Problems Name Problem SNOMED Code Status Onset Date Resolution Date Notes Provider Name and Address Organization Details Recorded Time Disorder of vitamin D 546162722 Active Not Available [facility] 3 07:15:16 Ankle pain 324642306 Completed 08/09/2017 BENJA Shannon 8 18:32:29 Pain radiatin g to right leg 830931320 Completed 201708/09/2017 BENJA Shannon 9 16:59:55 Pain radiatin g to right leg 597747315 Completed 201712/16/2018 BENJA Shannon 9 16:59:55 Pain in left knee Completed 201812/16/2018 BENJA Shannon 9 16:59:48 Neck pain 10359997 Completed 201812/16/2018 BENJA Shannon SIGARRETT 9 17:00:16 Low back pain 123067075 Active 2018 Not Available [facility] 3 07:15:16 Family history of coronary arterios clerosis 698215234 Active 2018 [facility] Available [facility] 3 07:15:16 Pruritus ani 21282260 Active 2018 Not Available [facility] 3 07:15:16 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 2018 Not Available [facility] 3 07:15:16 Genital herpes simplex 88299952 Active 2018 Not Available [facility] 3 07:15:16 Fibromya lgia 871204202 Active 2019 Not Available [facility] 3 07:15:16 Spasm 58942882 Active 2019 Generali zed Not Available [facility] 3 07:15:16 Anxiety 71388144 Active 2019 Not Available [facility] 3 07:15:16 Temporom andibula r joint disorder 29926952 Active 2019 Not Available [facility] 3 07:15:16 Disorder of maxilla 539321038 Active 2019 Not Available [facility] 3 07:15:16 Abnormal weight loss 875375827 Active 2019 Not Available [facility] 3 07:15:16 Tremor 50198471 Active 2019 Not Available [facility] 3 07:15:16 Tachycar love 6805376 Active 2019 Not Available [facility] 3 07:15:16 Abnormal thyroid hormone 997163953 Active 2019 Not Available [facility] 3 07:15:16 Thyroid nodule 098193012 Active 2019 Not Available [facility] 3 07:15:16 Otitis externa 4742341 Active 2020 Not Available [facility] 3 07:15:16 Hypergly cemia 65665800 Active 2020 Not Available [facility] 3 07:15:16 Popping sensatio n in ear 947096555 Active 2020 Not Available [facility] 3 07:15:16 History of SARS-CoV -2 40127701609 2926893 Active 2020 Not Available [facility] 3 07:15:16 Tobacco dependen ce syndrome 61789788 Active 2021 Not Available [facility] 3 07:15:16 Eruption 393406076 Active 2021 face Not Available [facility] 3 07:15:16 Pain in bilatera l lower legs 38492613263 249228 Active 2022 Adrian Bryant MD Attn: Accounting ,[address] [place], [address] , [place] [facility] 3 13:31:27 Pain 92935112 Active 2022 right periscap ular area Adrian Bryant MD Attn: Accounting ,[address] [place], [address] , [place] [facility] 3 13:32:35 Chronic constipa tion 005674594 Active 2022 Adrian Bryant MD Attn: Accounting ,[address] [place], [address] , [place] [facility] 3 13:35:16 Ferritin level below referenc e range 786702392 Active 2022 Adrian Bryant MD Attn: Accounting ,[address] [place], [address] , [place] [facility] 3 13:40:44 Vaginal discharg e 826446189 Completed 12/16/2018 Dc joseph [place] - [facility] 9 16:59:43 Acute vulvitis 82659964 Active Not Available [facility] 3 07:15:16 Gastroes ophageal reflux disease 043719319 Active Not Available [facility] 3 07:15:16 Fatigue 84869544 Completed 12/16/2018 Dc joseph [place] [facility] 9 17:00:12 Periodic limb movement disorder 898754456 Completed 08/09/2017 Dc joseph [place] [facility] 8 18:32:40 Tinea pedis 6816699 Active Not Available [facility] 3 07:15:16 Pruritus ani 70771141 Completed 08/09/2017 Dc [place]ose[place] [facility] 9 14:52:03 Dermatit is Completed 08/09/2017 Dc joseph [place] [facility] 8 18:32:15 Bipolar disorder 73020575 Active Not Available [facility] 3 07:15:16 Allergic rhinitis 20408370 Active Not Available [facility] 3 07:15:16 Inflamma tion of cervix 00009566 Completed 08/09/2017 Dc [place]oseph [place] [facility] 8 18:32:37 Colitis 24558599 Active Not Available [facility] 3 07:15:16 Candidia sis 22667658 Completed 08/09/2017 cD joseph [place] [facility] 8 18:33:20 Decrease in appetite 24090187 Completed 08/09/2017 Dc [place] [facility] 8 18:33:44 On examinat ion - vaginal discharg e Completed 08/09/2017 Dc [place] [facility] 8 18:32:06 Irritabl e bowel syndrome 84276935 Active Not Available [facility] 3 07:15:16 Allergic conditio n 224270334 Completed 12/16/2018 BENJA Shannon 9 16:59:59 Cough 57815366 Completed 08/09/2017 BENJA Shannon 8 18:33:33 Wheezing 95302407 Completed 08/09/2017 BENJA Shannon 8 18:33:39 Tobacco user 950597907 Active Not Available [facility] 3 07:15:16 Migraine 78984669 Active Not Available [facility] 3 07:15:16 Hyperlip idemia 59352301 Active Not Available [facility] 3 07:15:16 Backache 549364057 Completed 08/09/2017 BENJA Shannon SIYassine 8 18:32:02 Annular tear of lumbar disc 116391763 Active Not Available [facility] 3 07:15:16 Dysmenor baljeet 267955432 Completed 12/16/2018 BENJA Shannon 9 16:59:17 Depressi ve disorder 39035261 Active Not Available [facility] 3 07:15:16 Insomnia 673318865 Completed 08/09/2017 BENJA Shannon 8 18:33:51 Muscle spasm of cervical muscle of neck 65739044301 4 Completed 08/09/2017 BENJA Shannon - MICHAELYassine 8 18:32:23 Vitamin D deficien cy 44375597 Active Not Available [facility] 3 07:15:16 Dermal mycosis 32278245 Completed 08/09/2017 BENJA Shannon - MICHAELYassine 8 18:32:19 Shoulder pain 03015868 Completed 08/09/2017 BENJA Shannon - SHERRY 8 18:32:48 Onychomy cosis 297362807 Active Not Available [facility] 3 07:15:16 Urinary tract infectio us disease 62989176 Active Not Available [facility] 3 07:15:16 Night sweats 87961161 Completed 08/09/2017 Dc joseph, BENJA - [facility] 8 18:32:46 Mild depressi on 107326743 Active 2016 Not Available [facility] 3 07:15:16 Increase d frequenc y of urinatio n 053734012 Completed 201608/09/2017 Dc joseph, MD - [facility] 8 18:32:08 HIV screenin g Completed 201608/09/2017 Dc joseph MD - [facility] 8 18:32:12 Candidia sis of vagina 56546948 Active 2016 Not Available [facility] 3 07:15:16 Problem Notes None recorded. Procedures Surgical History Date Name Laterality Status Provider Name and Address Organization Details Recorded Time 022 Date of Last Mammogram completed Yulia Philippe MA MD - [facility] 11/22/2022 10:47:34 018 Total Abdominal Hysterectomy completed Lady Fierro PA-C Attn: Accounting,[address] [facility], [place], [address], [facility] - SI 09/07/2017 09:01:14 017 Date of Last Pap Smear completed FERNANDO Davis - [facility] 08/09/2017 14:20:54 014 Other completed Raffi Fang MD - [facility] 02/23/2014 16:02:46 012 Gallbladder Surgery completed Jerri Murphy LPN MD - [facility] 02/19/2014 08:44:34 012 Gastrointestinal Surgery completed Raffi Fang MD - [facility] 02/23/2014 16:00:49 006 Other completed Raffi Fang MD - [facility] 02/23/2014 16:00:49 005 Ovarian Cystectomy completed Jerri Murphy LPN MD - [facility] 02/19/2014 08:44:34 000 Tubal Ligation completed Jerri Murphy LPN MD - [facility] 02/19/2014 08:44:34 Total hysterectomy completed Evelyn Collazo MA MD - [facility] 09/20/2017 15:07:20 Imaging Results Imaging Date Name Status LastModified by Organization Details LastModified Time 12/19/2021 MAMMO, screening, bilateral completed [email or web address] [facility] [address] [place], [address], 12/22/2021 15:46:02 01/10/2022 US, breast, bilateral completed YESICA [facility] [address] [place], [address], 01/11/2022 20:34:09 01/14/2022 XR, knee completed [facility] [address] [place], [address], 11/22/2022 10:57:26 03/25/2022 XR, ribs, unilateral completed [email or web address] [facility] [address] [place], [address], 03/31/2022 06:00:56 10/28/2022 CT, abdomen + pelvis, w/ contrast completed [address] [place], [address], 11/02/2022 01:14:05 12/14/2022 US, breast, bilateral completed [facility] [address] [place], [address], 12/15/2022 08:50:31 12/14/2022 MAMMO, diagnostic, digital, bilateral completed [email or web address] [place], [address], 01/26/2023 16:43:04 12/14/2022 US, pelvis, transabdominal + [facility] [place], [address], 01/26/2023 16:43:05 01/21/2023 CT, abdomen + pelvis, w/ contrast completed [email or web address] [place] [address] [place], [address], 01/26/2023 16:43:03 02/13/2023 US, pelvis, transabdominal + transvaginal completed [facility] ([facility]) [address] [place], [address], 03/14/2023 16:39:16 03/08/2023 CT, abdomen + pelvis, w/ contrast completed [facility] [address] [place], [address], 03/22/2023 16:44:32 03/09/2023 US, doppler, arterial completed [facility] Information not available 04/04/2023 09:40:54 04/10/2023 MAMMO, screening, bilateral completed [address], [address], 04/25/2023 05:09:13 05/01/2023 XR, chest completed [address] [place], [address], 05/02/2023 11:53:35 07/20/2023 CT, abdomen + pelvis, w/ contrast completed [address] ([facility]) [address] [place], [address], 08/05/2023 20:11:27 10/12/2023 trans-thoracic echocardiogram (TTE) (PROC) completed [address] [facility] [address], [place], [address], 10/17/2023 05:51:10 01/04/2024 cardiac stress test completed [address] [facility] [address], [place], [address], 01/08/2024 11:54:07 Procedure Notes None recorded. Medical Equipment None Reported. Allergies Allergen ID Allergen Name Allergen Category Reaction Reaction Severity Criticality Documentation Date Start Date Code Code System Note Provider Name and Address Organization Details Recorded Time [id number] [facility] medic[facility] n dizziness Not available Not available 02/19/2014 3423 RxNorm Not Available Not Available Not Available [id number] pravastat in medicatio n myalgias (muscle pain) Not available Not available 02/19/2014 04318 RxNorm Not Available Not Available Not Available [id number] codeine medicatio n vomiting Not available Not available 02/19/2014 2670 RxNorm sever e stoma ch pain Not Available Not Available Not Available Medications Name Sig Start Date Stop Date Status Note LastModified by Organization Details LastModified Time magnesium oxide 400 (240 mg) mg tabs active Not Available Not Available Not Available insulin syringe/u- 100/1ml/31 g x 5/1 6 31g x 5/16 1 ml misc active Not Available Not Available Not Available amoxicilli n 500 mg capsule TK ONE C PO TID TAT 03/01 completed Not Available Not Available Not Available methocarba mol 500 mg tablet Take 2 tablets 4 times a day by oral route for 10 days. 08/09 completed Not Available Not Available Not Available megestrol 400 mg/10 mL (40 mg/mL) oral suspension active Not Available Not Available N ot Available doxepin 50 mg capsule Take 1 capsule every day by oral route at bedtime. 07/24 completed Not Available Not Available Not Available bupropion HCl SR 150 mg tablet,12 hr sustained- release TAKE 1 TABLET BY MOUTH TWICE DAILY 11/22 completed Not Available Not Available Not Available prednisone 10 mg tablet active Not Available Not Available Not Available paroxetine 10 mg tablet Take 1 tablet every day by oral route. 05/27 completed Not Available Not Available Not Available nicotine 14 mg/24 hr daily transderma l patch UNWRAP AND APPLY 1 PATCH TO SKIN EVERY DAY active Not Available Not Available No t Available tizanidine 2 mg tablet TAKE 1 TABLET BY MOUTH EVERY 12 HOURS NEEDED active Not Available Not Available No t Available Anusol-HC 2.5 % rectal cream with applicator Insert 1 applicat ion as needed by rectal route. 2014 active Not Available Not Available Not Avai lable evening primrose oil 500 mg capsule Take 1 capsule every day by oral route in the evening. 08/17 completed Not Available Not Available Not Available cetirizine 10 mg tablet Take 1 tablet every day by oral route. 01/12 completed Not Available Not Available Not Available oxybutynin chloride ER 10 mg tablet,ext ended release 24 hr 07/07 completed Not Available Not Available Not Available fluconazol e 150 mg tablet TAKE 1 TABLET BY MOUTH DIRECTED FOR 1 DAY. MAY REPEAT DOSE IN 72 HOURS IF SYMPTOMS PERSIST. active Not Available Not Available No t Available hydrocodon e 5 mg-acetami nophen 325 mg tablet TAKE 1 TABLET BY MOUTH EVERY 6 HOURS NEEDED active Not Available Not Available No t Available fluconazol e 200 mg tablet Take 1 tablet every day by oral route. 01/12 completed Not Available Not Available Not Available sucralfate 1 gram tablet TK 1 T PO QID B MEALS 08/11 completed Not Available Not Available Not Available metronidaz ole 0.75 % (37.5 mg/5 gram) vaginal gel active Not Available Not Available Not Available famotidine 40 mg tablet 2022 active Not Available Not Available Not Avai lable prednisone 20 mg tablet TAKE 3 TABLETS BY MOUTH EVERY DAY FOR 5 DAYS. 08/11 completed Not Available Not Available Not Available clonazepam 0.5 mg tablet Take 0.5 tablets twice a day by oral route. 10/13 completed Not Available Not Available Not Available terconazol e 0.8 % vaginal cream Insert 1 applicat orful every day by vaginal route. 08/17 completed Not Available Not Available Not Available Formula tablet Take 1 tablet every day by oral route. 01/12 completed Not Available Not Available Not Available Zithromax Z-Elijah 250 mg tablet TAKE 2 TABLETS (500 MG) BY ORAL ROUTE ONCE DAILY FOR 1 DAY THEN 1 TABLET (250 MG) BY ORAL ROUTE ONCE DAILY FOR 4 DAYS 04/28 completed Not Available Not Available Not Available penicillin V potassium 500 mg tablet TAKE 1 TABLET BY MOUTH TWICE DAILY FOR 10 DAYS 07/07 completed Not Available Not Available Not Available metronidaz ole 500 mg tablet TAKE 1 TABLET BY MOUTH EVERY 8 HOURS FOR 7 DAYS 11/22 completed Not Available Not Available Not Available ciprofloxa debra 500 mg tablet TK 1 T PO BID FOR 3 DAYS 07/07 completed Not Available Not Available Not Available peg-electr olyte solution 420 gram oral solution TK PO UTD BY OFFICE 07/07 completed Not Available Not Available Not Available tramadol 50 mg tablet TAKE 1 TABLET BY MOUTH EVERY 8 TO 12 HOURS NEEDED active Not Available Not Available No t Available triamcinol one acetonide 0.1 % topical cream APPLY THIN LAYER TOPICALL Y TO THE AFFECTED AREA AT NIGHT active Not Available Not Available No t Available butalbital -acetamino phen-caffe ine 50 mg-325 mg-40 mg tablet TAKE 1 TABLET TWICE DAILY NEEDED active Not Available Not Available No t Available acyclovir 800 mg tablet Take 1 tablet every day by oral route. 10/13 completed Not Available Not Available Not Available ondansetro n 8 mg disintegra ting tablet DIS 1 T ON THE TONGUE Q 8 H PRF NAUSEA 10/13 completed Not Available Not Available Not Available Zantac 150 mg tablet Take 1 tablet twice a day by oral route. 09/12 completed Not Available Not Available Not Available ketorolac 10 mg tablet TAKE 1 TABLET BY MOUTH EVERY 6 HOURS NEEDED FOR PAIN active Not Available Not Available No t Available pantoprazo le 20 mg tablet,del ayed release TAKE 1 TABLET BY MOUTH EVERY DAY active Not Available Not Available No t Available nortriptyl ine 25 mg capsule Take 1 capsule every day by oral route. 08/17 completed Not Available Not Available Not Available meloxicam 7.5 mg tablet TAKE 2 TABLETS BY MOUTH ONCE DAILY 07/07 completed Not Available Not Available Not Available Lamisil AT 1 % topical cream APPLY TO THE AFFECTED AND SURROUND ING AREAS OF SKIN BY TOPICAL ROUTE ONCE DAILY 03/01 completed Not Available Not Available Not Available Nicoderm CQ 7 mg/24 hr daily transderma l patch Apply 1 patch every day by transder mal route for 14 days. 04/05 completed Not Available Not Available Not Available amoxicilli n 875 mg tablet TAKE 1 TABLET BY MOUTH EVERY 12 HOURS active Not Available Not Available No t Available magnesium oxide 400 mg (241.3 mg magnesium) tablet TAKE 1 TABLET BY MOUTH EVERY NIGHT AT BEDTIME active Not Available Not Available No t Available estradiol 1 mg tablet Take 1 tablet every day by oral route. 08/17 completed Pt states not taking Not Available Not Available Not Available dicyclomin e 20 mg tablet Take 1 tablet twice a day by oral route. 08/17 completed Not Available Not Available Not Available K-Y Lubricatin g topical jelly Apply 1 g as needed by topical route. 06/27 completed Not Available Not Available Not Available baclofen 10 mg tablet Take 1 tablet 3 times a day by oral route. active Not Available Not Available No t Available benzonatat e 100 mg capsule TAKE 1 CAPSULE BY MOUTH EVERY 8 HOURS NEEDED 08/11 completed Not Available Not Available Not Available hyoscyamin e 0.125 mg disintegra ting tablet CHEW AND SWALLOW 1 TABLET BY MOUTH THREE TIMES DAILY NEEDED FOR ABDOMINA L PAIN 08/11 completed Not Available Not Available Not Available pantoprazo le 40 mg tablet,del ayed release TAKE 1 TABLET BY MOUTH EVERY DAY active Not Available Not Available No t Available hyoscyamin e sulfate 0.125 mg tablet TAKE 2 TABLETS BY MOUTH THREE TIMES DAILY 08/11 completed Not Available Not Available Not Available nortriptyl ine 10 mg capsule TAKE ONE CAPSULE BY MOUTH EVERY NIGHT AT BEDTIME active Not Available Not Available No t Available cyanocobal brantley (vit B-12) 1,000 mcg/mL injection solution ADMINIST ER 1 ML UNDER THE SKIN EVERY WEEK 11/22 completed Not Available Not Available Not Available naproxen sodium 550 mg tablet Take 1 tablet twice a day by oral route. 08/17 completed Not Available Not Available Not Available esomeprazo le magnesium 40 mg capsule,de layed release active Not Available Not Available Not Available nystatin 100,000 unit/gram topical cream APPLY TO THE AFFECTED AREA(S) BY TOPICAL ROUTE 2 TIMES PER DAY 06/27 completed Not Available Not Available Not Available lansoprazo le 30 mg capsule,de layed release TAKE ONE CAPSULE BY MOUTH TWICE DAILY 01/05 completed Not Available Not Available Not Available promethazi ne 25 mg tablet TAKE 1/2 TABLET BY MOUTH EVERY 6 HOURS NEEDED FOR NAUSEA active Not Available Not Available No t Available orphenadri ne citrate ER 100 mg tablet,ext ended release active Not Available Not Available Not Available nicotine 21 mg/24 hr daily transderma l patch APPLY 1 PATCH ON SKIN DAILY active Not Available Not Available No t Available omeprazole 20 mg capsule,de layed release Take 1 capsule every day by oral route. 10/13 completed Not Available Not Available Not Available insulin syringe U-100 with needle 1 mL 31 gauge x 5/16 USE ONCE A WEEK WITH BEFORE-1 2 active Not Available Not Available No t Available Valtrex 500 mg tablet Take 1 tablet(s ) every day by oral route. 08/17 completed Not Available Not Available Not Available ergocalcif erin (vitamin D2) 1,250 mcg (50,000 unit) capsule TAKE 1 CAPSULE BY MOUTH EVERY WEEK 03/15 completed Not Available Not Available Not Available ibuprofen 600 mg tablet Take 1 tablet 3 times a day by oral route. 03/01 completed Not Available Not Available Not Available albuterol sulfate HFA 90 mcg/actuat ion aerosol inhaler INHALE 2 PUFFS EVERY 6 HOURS NEEDED FOR WHEEZING OR SHORTNES S OF BREATH PER PATIENT FORMULAR Y active Not Available Not Available No t Available celecoxib 100 mg capsule TAKE 1 CAPSULE BY MOUTH TWICE DAILY NEEDED 03/15 completed Not Available Not Available Not Available ketoconazo le 2 % topical cream APPLY TOPICALL Y TO THE AFFECTED AREA EVERY DAY active Not Available Not Available No t Available cefdinir 300 mg capsule TK 1 C PO Q 12 H 10/13 completed Not Available Not Available Not Available fluticason e propionate 50 mcg/actuat ion nasal spray,susp ension SHAKE LIQUID AND USE 1 SPRAY IN EACH NOSTRIL TWICE DAILY 08/11 completed Not Available Not Available Not Available colestipol 1 gram tablet 08/11 completed Not Available Not Available Not Available dicyclomin e 10 mg capsule TAKE ONE CAPSULE BY MOUTH FOUR TIMES DAILY NEEDED 08/11 completed Not Available Not Available Not Available vitamin E 268 mg (400 unit) capsule TK 1 C PO BID 10/13 completed Not Available Not Available Not Available ipratropiu m bromide 21 mcg (0.03 %) nasal spray USE 2 SPRAYS IN EACH NOSTRIL TWICE DAILY active Not Available Not Available No t Available naproxen 500 mg tablet TAKE 1 TABLET BY MOUTH TWICE DAILY WITH FOOD active Not Available Not Available No t Available amoxicilli n 875 mg-potassi um clavulanat e 125 mg tablet TAKE 1 TABLET BY MOUTH TWICE DAILY 11/22 completed Not Available Not Available Not Available neomycin-p olymyxin-h ydrocort 3.5 mg-10,000 unit/mL-1 % ear drops,susp INSTILL 4 DROPS INTO THE LEFT EAR THREE TIMES DAILY FOR 5 DAYS 10/13 completed Not Available Not Available Not Available Bactrim DS 800 mg-160 mg tablet Take 1 tablet every 12 hours by oral route for 3 days. 01/12 completed Not Available Not Available Not Available ezetimibe 10 mg tablet TAKE 1 TABLET BY MOUTH DAILY 10/13 completed Not Available Not Available Not Available nicotine 21mg/24hr- 14mg/24hr- 7mg/24hr daily transderm patches,se quentl Apply 1 patch every day by transder mal route. 01/12 completed Not Available Not Available Not Available cyclobenza felix 5 mg tablet TK 1 T PO Q 8 H 07/07 completed Not Available Not Available Not Available Premarin 0.625 mg/gram vaginal cream Insert 0.5 applicat orsful twice a week by vaginal route 08/17 completed Not Available Not Available Not Available Ciprodex 0.3 %-0.1 % ear drops,susp ension INSTILL 4 DROPS INTO AFFECTED EAR(S) BY OTIC ROUTE 2 TIMES PER DAY FOR 7 DAYS 06/27 completed Not Available Not Available Not Available cholestyra mine (with sugar) 4 gram oral powder DISSOLVE 4 GRAMS IN 2 TO 6 OZ OF WATER OR NON-CARB ONATED BEVERAGE AND TAKE BY MOUTH TWICE DAILY 07/14 /2021 completed Not Available Not Available Not Available metoprolol tartrate 25 mg tablet TAKE 1/2 TABLET BY MOUTH TWICE DAILY active Not Available Not Available No t Available Lalita vaginal solution Insert 1 package as needed by vaginal route. 04/05 completed Not Available Not Available Not Available nitrofuran toin monohydrat e/macrocry stals 100 mg capsule TAKE 1 CAPSULE BY MOUTH TWICE DAILY WITH FULL GLASS OF WATER 04/12 completed Not Available Not Available Not Available duloxetine 30 mg capsule,de layed release TAKE 1 CAPSULE BY MOUTH EVERY NIGHT AT BEDTIME FOR ONE WEEK THEN INCREASE TO 2 CAPSULE BY MOUTH EVERY NIGHT AT BEDTIME 03/15 completed Not Available Not Available Not Available duloxetine 60 mg capsule,de layed release Take 1 capsule every day by oral route. 10/13 completed Not Available Not Available Not Available lactulose 10 gram/15 mL oral solution Take 15 mL every day by oral route. 04/05 completed Not Available Not Available Not Available solifenaci n 10 mg tablet 10/13 completed Not Available Not Available Not Available Clindesse 2 % vaginal cream,exte nded release Insert 1 applicat orful by vaginal route at bedtime for 1 day. 07/08 completed Not Available Not Available Not Available Formula 28 mg iron-800 mcg tablet Take 1 tablet every day by oral route. 01/12 completed Not Available Not Available Not Available pregabalin 50 mg capsule Take 1 capsule 3 times a day by oral route. 2022 active Not Available Not Available Not Avai lable omeprazole 20 mg-sodium bicarbonat e 1.1 gram capsule TK 1 C PO QD ON AN EMPTY STOMACH AT LEAST 1 HOUR BEFORE MEALS. SWALLOW WHOLE WITH WATER 10/13 completed Not Available Not Available Not Available omeprazole 40 mg-sodium bicarbonat e 1.1 gram capsule TAKE ONE CAPSULE BY MOUTH TWICE DAILY 10/13 completed Not Available Not Available Not Available mometasone 0.1 % topical solution USE 4 DROPS IN EACH EAR DAILY active Not Available Not Available No t Available RepHresh vaginal gel Insert 1 g as needed by vaginal route. 06/27 completed Not Available Not Available Not Available Symbicort 160 mcg-4.5 mcg/actuat ion HFA aerosol inhaler INL 2 PFS PO TWICE DAILY. RM WITH WATER AFTER USE. DO NOT SWALLOW 10/13 completed Not Available Not Available Not Available peg 3350-elect rolytes 236 gram-22.74 gram-6.74 gram-5.86 gram solution TAKE DIRECTED BY OFFICE active Not Available Not Available No t Available FeroSul 325 mg (65 mg iron) tablet TAKE 1 TABLET BY MOUTH EVERY MORNING 03/15 completed Not Available Not Available Not Available vitamin E (dl, acetate) 180 mg (400 unit) capsule Take 1 capsule twice a day by oral route. 07/08 completed Not Available Not Available Not Available Lo Loestrin Fe 1 mg-10 mcg (24)/10 mcg (2) tablet Take 1 tablet every day by oral route. 03/01 completed Not Available Not Available Not Available RepHresh Pro-B 2.5 billion cell capsule Take 1 capsule every day by oral route. 06/27 completed Not Available Not Available Not Available lactulose 10 gram/15 mL (15 mL) oral solution Take 15 mL every day by oral route. 08/09 completed Not Available Not Available Not Available mirabegron ER 50 mg tablet,ext ended release 24 hr Take 1 tablet every day by oral route. 06/27 completed Not Available Not Available Not Available Linzess 145 mcg capsule Take 1 capsule every day by oral route. 01/12 completed Not Available Not Available Not Available Linzess 290 mcg capsule Take 1 capsule every day by oral route. 07/08 completed Not Available Not Available Not Available Praluent Pen 150 mg/mL subcutaneo us pen injector INJECT 1 PEN UNDER THE SKIN EVERY 2 WEEKS active Not Available Not Available No t Available Repatha SureClick 140 mg/mL subcutaneo us pen injector ADMINIST ER 140 MG UNDER THE SKIN EVERY 2 WEEKS active Not Available Not Available No t Available Linzess 72 mcg capsule TK ONE C PO AC D 10/13 completed Not Available Not Available Not Available Anusol-HC 2.5 % topical cream with perineal applicator APPLY A THIN LAYER TO THE AFFECTED AREA(S) BY TOPICAL ROUTE 2-4 TIMESDAI LY 07/08 completed Not Available Not Available Not Available Treledeanna Ellipta 100 mcg-62.5 mcg-25 mcg powder for inhalation INL 1 PUFF PO D 07/07 completed Not Available Not Available Not Available Solosec [address] granules in packet Take 2 g by oral route. 04/05 completed Not Available Not Available Not Available Ibsrela 50 mg tablet active Not Available Not Available No t Available Vitals Date Recorded Body height Provider Name an d Address Organization Details Last Updated DateTime 12/02/2021 157.48 cm Beckie Kramer MA [facility] 12/03/19 16:58:19 Date Recorded Body mass index (BMI) Body weight Provider Name and Address Organization Details Last Updated DateTime 12/02/2021 23.1 kg/m2 33162.07 g Beckie Kramer MA [facility] 12/02/2021 16:58:30 Date Recorded Body height Provider Name an d Address Organization Details Last Updated DateTime 11/22/2022 157.48 cm Yulia Philippe MA [facility] 2022 10:51:39 Date Recorded Body mass index (BMI) Body weight Provider Name and Address Organization Details Last Updated DateTime 11/22/2022 24.1 kg/m2 70366.19 g Yulia Philippe MA [facility] 11/22/2022 10:51:47 Date Recorded Body height Provider Name an d Address Organization Details Last Updated DateTime 01/26/2023 157.48 cm Jillian Hdz MA [facility] 01/26/2023 15:41:22 Date Recorded Body mass index (BMI) Body weight Provider Name and Address Organization Details Last Updated DateTime 01/26/2023 24.1 kg/m2 58767.19 g Jillian Hdz MA [facility] 15:50:22 Date Recorded Body height Provider Name an d Address Organization Details Last Updated DateTime 02/20/2023 157.48 cm Peggy Short MA [facility] 12:10:46 Date Recorded Body mass index (BMI) Body weight Provider Name and Address Organization Details Last Updated DateTime 02/20/2023 24.5 kg/m2 76732.38 g Peggy Short MA [facility] 1 04/22/2022 12:28:34 Date Recorded Heart rate Provider Name an d Address Organization Details Last Updated DateTime 02/20/2023 99 /min Peggy Short MA [facility] 12:28:40 Date Recorded Body temperature Provider Name a nd Address Organization Details Last Updated DateTime 02/20/2023 98.1 [degF] Peggy Short MA [facility] 02/21/20 12:28:42 Date Recorded Oxygen saturation Oxygen saturation in Arterial blood by Pulse oximetry Provider Name and Address Organization Details Last Updated DateTime 02/20/2023 98 % 98 % Peggy Short MA [facility] 02/20/2023 12:28:45 Date Recorded Body height Provider Name an d Address Organization Details Last Updated DateTime 03/15/2023 157.48 cm Micki Santillan MA [facility] 2022 11:00:03 Date Recorded Body mass index (BMI) Body weight Provider Name and Address Organization Details Last Updated DateTime 03/15/2023 24.3 kg/m2 53635.79 g Micki Santillan MA [facility] 03/15/2023 11:02:29 Date Recorded Systolic blood pressure Diastolic blood pressure Provider Name and Address Organization Details Last Updated DateTime 12/02/2021 116 mm[Hg] 66 mm[Hg] Beckie Kramer MA [facility] 12/02/2021 17:00:56 Date Recorded Systolic blood pressure Diastolic blood pressure Provider Name and Address Organization Details Last Updated DateTime 11/22/2022 112 mm[Hg] 70 mm[Hg] Yulia Philippe MA [facility] 11/22/2022 10:55:32 Date Recorded Systolic blood pressure Diastolic blood pressure Provider Name and Address Organization Details Last Updated DateTime 01/26/2023 112 mm[Hg] 70 mm[Hg] Jillian Hdz MA [facility] 01/26/2023 15:52:16 Date Recorded Systolic blood pressure Diastolic blood pressure Provider Name and Address Organization Details Last Updated DateTime 02/20/2023 106 mm[Hg] 76 mm[Hg] Peggy Short MA MD - [facility] 02/20/2023 12:28:37 Date Recorded Systolic blood pressure Diastolic blood pressure Provider Name and Address Organization Details Last Updated DateTime 03/15/2023 112 mm[Hg] 74 mm[Hg] Micki Santillan MA MD - [facility] 03/15/2023 11:04:00 Social History Question Answer Notes LastModified by Organizat ion Details LastModified Time Tobacco Smoking Status Former Smoker Yulia Philippe MA null, MD - [facility] 11/22/2022 10:53:53 Do You Have An Advance Directive? No [email or web address] Information not available 06/15/2014 What Is Your Level Of Alcohol Consumption? Occasional Information not available 02/23/2014 Is Blood Transfusion Acceptable In An Emergency? Yes [email or web address] Information not available 06/15/2014 What Is Your Level Of Caffeine Consumption? Occasional Information not available 07/07/2020 How Much Tobacco Do You Chew? None [email or web address] Information not available 06/15/2014 Are You Currently Employed? No [email or web address] Information not available 06/15/2014 What Type Of Diet Are You Following? REGULAR [email or web address] Information not available 06/15/2014 Which Illicit Or Recreational Drugs Have You Used? Patient Denies [email or web address] Information not available 11/30/2014 Do You Or Have You Ever Used E-cigarettes Or Vape? Current User Of Electronic Cigarettes Information not available 11/22/2022 Education 12 Information no t available 02/23/2014 Have There Been Any Changes To Your Family Or Social Situation? No Information not available 07/07/2020 Live Alone Or With Others? With Others Information not available 02/23/2014 What Was The Date Of Your Most Recent Tobacco Screening? 02/20/2023 Information not available 02/20/2023 How Many Children Do You Have? 2 Information not available 02/23/2014 What Is Your Current Pack Years? [id number] Information not available 07/07/2020 Performs Monthly Self-breast Exam? Yes [email or web address] Information not available 06/15/2014 Do You Use Protection During Sex? No [email or web address] Information not available 06/15/2014 What Is Your Relationship Status? Single [email or web address] Information not available 06/15/2014 Do You Use Your Seat Belt Or Car Seat Routinely? Yes Information not available 07/07/2020 Seat Belts Used Routinely Yes [email or web address] Information not available 06/15/2014 Are You Sexually Active? Yes [email or web address] Information not available 06/15/2014 Do You Have Smoke And Carbon Monoxide Detectors In Your Home? Yes Information not available 07/07/2020 At What Age Did You Start Smoking Tobacco? 13 [email or web address] Information not available 06/15/2014 Are You Passively Exposed To Smoke? Yes Information not available 02/23/2014 Do You Or Have You Ever Used Smokeless Tobacco? Never Used Smokeless Tobacco [email or web address] Information not available 03/20/2019 How Much Tobacco Do You Smoke? 1 PPD Information not available 02/23/2014 General Stress Level High [email or web address] Information not available 03/01/2017 Do You Use Any Illicit Or Recreational Drugs? Yes Marijuana Information not available 11/22/2022 Do You Use Sunscreen Routinely? No [email or web address] Information not available 06/15/2014 Has Tobacco Cessation Counseling Been Provided? Yes Information not available 07/07/2020 On What Date Was Tobacco Cessation Counseling Provided? 02/20/2023 Information not available 02/20/2023 How Many Years Have You Smoked Tobacco? 22 Information not available 06/15/2014 Do You Or Have You Ever Used Any Other Forms Of Tobacco Or Nicotine? Yes Information not available 11/22/2022 Sex: Unknown Functional Status Question Answer Note LastModified by Organizat ion Details LastModified Time Are you able to care for yourself? Yes Information not available 02/23/2014 What is your exercise level? Occasional [email or web address] Information not available 06/15/2014 Mental Status None recorded. Family History Relationship Description Onset Age of this Age Resolved Age Notes LastModified by Organization Details LastModified Time Mother Heart disease 49 [email or web address] Not available 2015 12:24:28 Mother Myocardial infarction [email or web address] Not available 11/16 12:24:28 Maternal Grandmother Heart disease [email or web address] Not available 2015 12:24:28 Maternal Grandfather Heart disease [email or web address] Not available 2015 12:24:28 Maternal Aunt Malignant tumor of breast 63 [email or web address] Not available 2015 12:24:28 Medical History Condition Response Coronary Artery Disease N Blood Diseases N Kidney Cyst N Hyperthyroidism N Blood disorders N MRSA Y Blood Transfusion N Emphysema N Depression Y COPD N Blood Clots N Pneumonia N Peripheral Arterial Disease N Premature N Edema N TIA N Headaches/Migraines N Anxiety Disorder Y Obesity N Polyps N Infertility N Acid Reflux (GERD) Y Hematuria N Stroke N Neck Injury N Polio N Hospital Admission other than N Neurologic Disorder N Other Sleep Disorders N Rheumatoid Arthritis N Fibromyalgia N Abdominal Aortic Aneurysm Repair N Kidney Disease N Heart Conditions N Heart Disease/Heart Problems N Hospitalizations Y Brain Tumors N Acne N Skin Problems N Eating Disorder N Meningitis N Constipation Y Tuberculosis N Cerebral Palsy N Myocardial Infarction N Asthma N Substance Abuse N Peripheral Vascular Disease N Vertigo N Sleep Disorder N Cirrhosis N Pulmonary Embolism N Chicken Pox Y Hematologic Disease N Flomax Use Past or Present N Anxiety/Depression Y Thyroid Disease N Colon Cancer N Lung Disease N Glaucoma N Developmental or Behavioral Disorders N Bipolar Y Pacemaker N Diverticulitis/Diverticulosis N Orthopedic Problems N Anesthesia Complications N Orthotics N Head Injury/Concussion N Congenital Anomalies N Flores Bite N Chronic Kidney Disease N Endometriosis N Liver Disease N Schizophrenia N Dialysis N Speech Delay N Chronic Obstructive Pulmonary Disease N Parkinson's Disease N Thyroid Problems N GI Problems N Developmental Delay N Anemia N Multiple Sclerosis N Immune System Disorder N Colon Polyps N Heart Attack (OR) N Diabetes N Cardiomyopathy N Blood Transfusions N Heart Problems/Murmur N Eye Trauma N Congestive Heart Failure (CHF) N Valvular Heart Disease N Hyperlipidemia N Double Vision N Abuse/Domestic Violence N Hepatitis B N Lupus N Epilepsy/Seizures N Reflux/GERD Y Aneurysm N Heart Disease N Bronchitis Y Pre-Eclampsia N Hypertension N Heart Failure N Other Y Gout N High Blood Pressure N Atrial Fibrillation N Kidney Stones N Head Trauma/Injury N Congenital Heart Disease N Spine Problems N Gastrointestinal Disease Y Lung Mass N Sinusitis N Obstructive Sleep Apnea N Muscle, Joint, or Bone Problems Y Autoimmune disease N Vision or Eye Problems N Arthritis N Blood Clot N Cancer N Seasonal allergies Y Leg or Foot Ulcers N Raynaud's Disease N Aortic Aneurysm N Arrhythmia N Headaches N Heart Problems N Ambloypia N Ear or Hearing Problems N Hyperparathyroidism N Migraines N Artificial Joints N Kidney or Bladder Problems N NSAID Use N Encephalitis N PTSD N Ulcers N Prostate Hypertrophy N Bleeding Disorder N AIDS/HIV N Urinary Tract Infection Y Back Problems Y Allergies Y Atrial Flutter N GERD/Reflux Y Hepatitis N Autism Spectrum Disorder (ASD) N Breast Cancer N Hernia N Hypothyroidism N Breast Problem N Genitourinary Disease N Deep Vein Thrombosis N Varicose Veins N Cystic Fibrosis N Hearing Loss N Developmental Problems N Carotid Disease N Vitamin D Deficiency Y ADHD N Bladder or Kidney Problems N High Cholesterol Y Meniers N Valvular Abnormalities N Psychiatric/Mental Health Condition N Organ Transplant N Foot Deformity N Allergies/Hayfever Y Dyslipidemia N Hyponatremia N Diabetic Eye Disease N Osteoporosis/Osteopenia N Back Pain Y Proteinuria N Mental Illness N Neurological Problems N Ovarian Cancer N Bedwetting N Seizures/Epilepsy N Kidney Failure N Ocular trauma N Diverticulitis N Dementia N Sleep Apnea N Mental Problems N Warfarin Management N Osteoporosis N Gynecological History Statement/Question Response Abnormal Pap N Date of Last Mammogram 01/14/2022 On BCP's at Conception? N STIs/STDs N HPV Vaccine N Age at Menarche 10 Current Control Method Tubal Ligat ion Age at First Child 16 Sexually Active? Y Menses Monthly No Date of Last Pap Smear 03/01/2017 Sexual Problems? N LMP Unknown Desired Control Method Hysterectom y Obstetrics History GPAL:G 3 P 2 0 1 2 Type Value Multiple Births 0 Full Term 2 Induced 1 Spontaneous 0 Premature 0 Living 2 Ectopics 0 Total 3 Immunizations Vaccine Type Date Status Note Provider Nam e and Address Organization Details Recorded Time Tdap 07/24/2016 completed Not Available [facility] 02:42:35 Past Encounters Encounter ID Performer Location Encounter Start Date Encounter Closed Date Diagnosis/Indication Diagnosis SNOMED-CT Code Diagnosis ICD10 Code Diagnosis Note [id number] [facility] [place] [address] 02/23/2014 15:45:36 02/23/2014 16:49:48 Tobacco user [id number] Annular te ar of lumbar disc 250674888 Backache 907132199 Ankle pain 756144275 Chr onic Disorder of vitamin D 458692958 [id number] Dc Owens (BLOOD TESTER) [address] [place] [id number] 0 03/03/2014 10:40:31 03/03/2014 11:34:26 [id number] FERNANDO Reilly (BLOOD TESTER) [address] [place] [address] [id number] 0 06/15/2014 12:05:02 06/15/2014 13:32:05 Vaginal discharge 519341874 Acute vulvitis 69210047 [id number] Rochelle Allen MA [facility] [address] [place] [address] 06/25/2014 10:54:58 06/25/2014 11:45:28 Ankle pain 703215492 Chronic Annular te ar of lumbar disc 624043454 Gastroesop hageal reflux disease 963416409 Protonix has failed Prilosec and Prevacid Disorder of vitamin D 396488601 Fatigue 74680708 Periodic l imb movement disorder 678722456 R/o restless legs syndrome Tinea pedis 4324341 [id number] Lady Fierro PA-C [facility] [address] [place] [address] 07/30/2014 11:02:05 07/30/2014 11:39:00 Dermatitis 113629214 Told her to not use alcohol or vinegar on patch. Advised to use vasoline often and to apply a large layer at night. [id number] Rochelle Allen MA [facility] [address] [place] [address] 08/17/2014 12:05:48 08/17/2014 12:51:47 Disorder of vitamin D 971151859 Will check vitamin D levels today - if low will do another 2 months of vitamin D Bipolar disorder 21497834 Would like to see a psychiatri st Allergic rhinitis 72856178 Advised to try Zyrtec as well. Will possibly help with atopic dermatitis as well. Dermatitis 457668895 Wou ld like to see a dermatolog ist when she has good insurance come August. Will see if Zyrtec and fluticason e are helpful in alleviatin g what I suspect is the atopic march. [id number] FERNANDO Reilly (BLOOD TESTER) [address] [place] [id number] 0 09/02/2014 10:05:46 09/02/2014 11:54:50 Inflammation of cervix 46418697 Bleeding to posterior canal noted Colitis 24744490 [place] c tenderness noted. No cervical motion tenderness . Streptococcus carrier 767852766 [id number] Dc Brooks Roman (BLOOD TESTER) [address] [place] [address] [id number] 0 09/16/2014 15:37:45 09/16/2014 17:28:07 Vaginal discharge 521834711 NORMAL [id number] Roman (Adult Med) [address] [place] [address] [id number] 0 10/23/2014 11:33:11 10/23/2014 12:23:17 Fatigue 23395880 Decrease in appetite 53209602 Would like healthier eating options [id number] FERNANDO Reilly (BLOOD TESTER) [address] [place] [address] [id number] 0 11/30/2014 10:19:29 11/30/2014 13:38:25 On examination - vaginal discharge 488821130 Irritable bowel syndrome 60093681 [id number] LEXI Cantu (Adult Med) [address] [place] [address] 09903-229 0 01/06/2015 16:02:13 01/06/2015 22:27:12 Allergic condition 384315380 T78.40XS Cough 41291260 R05 If the cough proceeds to a sinus infection, which she states generally happens when she begins with this it turns into bronchitis and then into a sinus infection. If sx's persist for 10 day she will cigar packer and picker the Zpack. She generally lets this run its course and sometimes it does not turn into a sinus infection but would like the zpack there just in case it does Wheezing 52999036 R06.2 Audible wheezing at home - states that she feels like she cannot clear her throat and that it is tightening [id number] LEXI Canut (Adult Med) [address] [place] [address] [id number] 0 04/28/2015 14:07:38 04/28/2015 14:48:24 Tobacco user 853140656 Z72.0 RTC 1 month for f/u Discussed not smoking in the house or in the car - these are her goals for the first month Depressive disorder 3548 9007 F32.9 Will try paroxetine 10mg - will begin this for hot flashes and mood swings Also discussed trying to cut down on smoking and going back to drinking more water. SHe has switched back to drinking a lot of soda Disorder of vitamin D 38 8419621 E55.9 WIll check today and fill accordingl y Allergic condition 05176 1001 T78.40XS [id number] LEXI Cantu (Adult Med) [address] [place] [address] 71620-332 0 05/27/2015 14:11:05 05/27/2015 14:45:24 Insomnia 283971015 G47.00 Will initiate doxepin 50mg qPM at bedtime RTC 3 weeks Muscle spa sm of cervical muscle of neck 7967923684 04 M62.838 Hasmukh has worked for her in the past Headache likely 2/2 muscle spasms and stress Tobacco user 517719058 Z 72.0 Quit cold turkey - last cigarette 1 week ago Depressive disorder 3548 9007 F32.9 Advised to make an appointmen t with psychiatry - she has no interest in this at this time [id number] LEXI Cantu (Adult Med) [address] [place] [address] 15113-032 0 08/16/2015 11:59:57 08/16/2015 13:28:12 Depressive disorder 20699068 F32.9 Advised to make an appointmen t with psychiatry - she has no interest in this at this time Vitamin D deficiency 347 37360 E55.9 Will recheck vitamin d today Insomnia 377694026 G47.0 0 Continue doxepin 50mg as needed Adult heal th examination 723947895 Z00.01 Dermal mycosis 10259456 B36.9 Will initiate fluconazol e 200mg QD RTC in one month if no improvemen t with medicaiton Tobacco user 740887862 Z 72.0 Very stressed right now - states that her oldest is going to school in [place] and then her youngest is causing her issues [id number] LEXI Cantu (Adult Med) [address] [place] [address] 90622-662 0 10/08/2015 09:29:59 10/08/2015 12:23:46 Dermal mycosis 03133004 B36.9 Will prescribe Lamasil cream Shoulder pain 91628948 M 25.511 Will begin with PT Onychomycosis 239988000 B35.1 Greatly improved with healthy nail bases, no need for medication at this time [id number] MD Roman [facility] (BLOOD TESTER) [address] [place] [address] [id number] 0 11/17/2015 10:29:21 11/22/2015 12:33:33 Gynecologic examination 45146421 Z01.419 Urinary tr act infectious disease 97234064 N39.0 Night sweats 56522647 R6 1 Candidiasis 43626880 B37 .9 [id number] LEXI Cantu (Adult Med) [address] [place] [address] [id number] 0 01/13/2016 12:32:25 01/13/2016 17:49:44 Gastroesophageal reflux disease 603616657 K21.9 Will refer back to GI for evalDiscus sed that her emotional stress can cause her physical sx's - if she does not get any relief from GI advised that I recommend she see psychShe has tried numerous PPI, bentyl, Zantac to no relief Hyperlipidemia 40825788 E78.5 Will recheck today Vitamin D deficiency 347 07252 E55.9 Will recheck vitamin d today [id number] Dc BradyCeciliaprimitivo Owens (BLOOD TESTER) [address] [place] [address] 25220-813 0 02/03/2016 14:49:45 02/03/2016 22:07:04 Dysmenorrhea 905334381 N94.6 Dysfunctio nal uterine bleeding 53598952 N93.8 Candidiasis of vagina 72 539398 B37.3 Chronic pe lvic pain of female 380425742 R10.2 Irritable bowel syndrome 33295621 K58.9 Bipolar disorder 7527288 4 F31.9 [id number] LEXI Cantu (Peds) [address] [place] [address] [id number] 0 07/24/2016 16:26:11 07/25/2016 13:35:32 Increased frequency of urination 847576500 R35.0 UA negative - advised to drink plenty of waterStay away from alcohol and any sugary drinks Active or passive immunization 974839427 Z23 HIV screening 612944403 Z11.4 Mild depression 96801779 3 F32.0 having some issues with her youngest daughter and they are going to family counseling Does not want to see psych at this time Candidiasis of vagina 72 251682 B37.3 Per patient - will treat Tobacco user 102230994 Z 72.0 Very stressed right now - states that her oldest is going to school in [place] and then her youngest is causing her issues Muscle spa sm of cervical muscle of neck 1047187844 04 M62.838 Hasmukh has worked for her in the past Headache likely 2/2 muscle spasms and stress [id number] LEXI Cantu (Adult Med) [address] [place] [address] [id number] 0 09/12/2016 15:13:36 09/13/2016 10:16:59 Backache 145550418 M54.9 Will refer to PT - advised to increase exercise, get in the water, and keep moving Insomnia 504343291 G47.0 0 d/t her possibly being manic at this time, discussed with her that she should re-establi sh with psych - she agreed with plan and will find psych Spasm of back muscles 20 9652662 M62.830 Will refer to PT - advised to increase exercise, get in the water, and keep moving Bipolar disorder 8761864 4 F31.9 Schedule an appointmen t with psych - either here or advised to contact her insurance to see if she could get into someone fast Tobacco user 685127959 Z 72.0 Advised to quit Gastroesop hageal reflux disease 457740152 K21.9 Advised to f/u with GI [id number] Dc Owens HC (BLOOD TESTER) [address] [place] [address] [id number] 0 03/01/2017 16:33:47 03/02/2017 10:17:20 Gynecologic examination 88875697 Z01.411 Irregular intermenstrual bleeding 98812179 N92.1 [id number] LEXI Cantu (Adult Med) [address] [place] [address] 73268-075 0 05/14/2017 14:17:19 05/14/2017 16:38:16 Pain radiating to right leg 707268272 M79.604 lower back pain with radiation to posterior right leg - will begin with MRI at this time d/t chronicity and failed PT Hyperlipidemia 68408871 E78.5 Will recheck today Vitamin D deficiency 347 52084 E55.9 Will recheck vitamin d today [id number] Dc Owens (BLOOD TESTER) [address] [place] [address] 93578-243 0 08/09/2017 13:50:04 08/09/2017 15:25:57 History of endometrial ablation 5234420011 00917 Z98.890 History of female sterilization 307735750 Z92.0 Bipolar disorder 5508262 4 F31.9 Abnormal u terine bleeding 6819528624 9100 N93.9 failed medical management , failed minor surgical management , prior sterilizat ion. Desires definitive surgical therapy. Bladder mu scle dysfunction - overactive 464785128 N32.81 Tobacco user 569074467 Z 72.0 [id number] Dc Owens (BLOOD TESTER) [address] [place] [address] [id number] 0 09/20/2017 14:54:35 09/20/2017 15:57:34 Postoperative visit 370350431 Z09 Pathology report showed adenomyosi s and hemorrhagi c ovarian cyst.Okay to go swimming. Advised no intercours e for 6 weeks. Bipolar disorder 6710861 4 F31.9 Tobacco user 194563111 Z 72.0 Depressive disorder 3548 9007 F32.9 Constipation 27844864 K5 9.00 Bladder mu scle dysfunction - overactive 084017854 N32.81 [id number] Dc Owens (BLOOD TESTER) [address] [place] [address] [id number] 0 10/08/2017 15:46:14 10/09/2017 15:39:57 Postoperative visit 150131328 Z09 Pathology report showed adenomyosi s and hemorrhagi c ovarian cyst.Okay to go swimming. Advised no intercours e for 6 weeks. Constipation 66652384 K5 9.00 Bipolar disorder 6769645 4 F31.9 Tobacco user 750766211 Z 72.0 Depressive disorder 3548 9007 F32.9 [id number] Dc Owens (BLOOD TESTER) [address] [place] [address] 97477-288 0 11/26/2017 15:59:20 11/26/2017 16:59:37 Exposure to sexually transmissible disorder 184791036 Z20.2 Postsurgic al menopause 166575461 E89.41 Vaginal discharge 053622 006 N89.8 NORMAL [id number] Dc Cecilia Owens (BLOOD TESTER) [address] [place] [address] 06388-437 0 12/31/2017 11:08:22 01/03/2018 11:47:32 Perimenopausal state 1136807190 96402 Z78.0 Vulvar vestibulitis 3083 3006 N94.810 Irritable bowel syndrome 13648293 K58.9 Exposure t o sexually transmissible disorder 695241315 Z20.2 [id number] MATT Cadena (Adult Med) [address] [place] [address] 94896-870 0 04/05/2018 14:00:15 04/08/2018 10:05:11 Chronic low back pain 675631108 M54.5 lower back pain with radiation to posterior right leg - will begin with MRI at this time d/t chronicity and failed PT Tobacco user 112575576 Z 72.0 advised to quit, patient not ready yet. Disorder of vitamin D 38 6633162 E56.9 [id number] MATT Cadena (Adult Med) [address] [place] [address] 73380-036 0 05/17/2018 15:24:51 05/20/2018 09:22:06 Tobacco user 352463352 Z72.0 advised to quit, patient three weeks smoke free. Acute otitis media 72164 03 H66.92 Neck pain 49259162 M54.2 [id number] MD Roman Yin (Adult Med) [address] [place] [address] 05532-480 0 06/27/2018 11:58:42 06/27/2018 12:56:56 Vitamin D deficiency 66688197 E55.9 Pain in left knee 787001 1717 85675 M25.562 Continue rest, ice. Apply heat in one Low back pain 867190013 M54.5 Neck pain 07124612 M54.2 [id number] Dc Owens (BLOOD TESTER) [address] [place] [address] 84057-983 0 08/05/2018 14:56:10 08/06/2018 14:19:36 History of total hysterectomy 786462463 Z90.710 On ERT 1mg estradiol only. has not used in over 7 days. Bipolar disorder 8912058 4 F31.9 Fibrocysti c disease of breast 92061511 N60.19 Paraverteb ral muscle spasm 49324938 M62.830 Polycystic ovaries 58120 008 E28.2 Low back pain 774551274 M54.5 [id number] MD Roman Yin (Adult Med) [address] [place] [address] [id number] 0 09/26/2018 16:30:01 09/27/2018 11:42:28 Family history of coronary arteriosclerosis 965688860 Z82.49 Tobacco user 712174810 Z 72.0 Hyperlipidemia 99446875 E78.5 Pain in left knee 888512 1898 35124 M25.562 Continue rest, ice. Apply heat in one Gastroesop hageal reflux disease 626047934 K21.9 Vitamin D deficiency 347 53419 E55.9 [id number] Dc Owens (BLOOD TESTER) [address] [place] [address] 05969-829 0 12/16/2018 16:07:58 12/17/2018 12:33:17 Postsurgical menopause 085980246 E89.41 History of total hysterectomy 561855845 Z90.710 Dyspareunia 86339308 N94 .10 Encouraged patient to try lubricatio n ([place] liquid, Astroglide ). [id number] Dc Owens (BLOOD TESTER) [address] [place] [address] [id number] 0 12/31/2018 13:56:00 01/01/2019 12:35:17 Pruritus ani 13841087 L29.0 Exposure t o sexually transmissible disorder 669828173 Z20.2 Hemorrhoids 12975239 K64 .9 History of total hysterectomy 815562529 Z90.063 [id number] Dc Owens (BLOOD TESTER) [address] [place] [address] 84144-518 0 03/19/2019 14:52:23 03/20/2019 12:23:36 Exposure to sexually transmissible disorder 615526451 Z20.2 Bacterial vaginosis 4197 88554 N76.0 Tobacco user 957214215 Z 72.0 History of total hysterectomy 015034760 Z90.954 [id number] Dc Owens (BLOOD TESTER) [address] [place] [address] 30593-837 0 05/12/2019 10:16:50 05/13/2019 11:53:58 Exposure to sexually transmissible disorder 779970278 Z20.2 Fibromyalgia 956343602 M 79.7 Screening mammography 24 519623 Z12.31 Bipolar disorder 6669048 4 F31.9 [id number] Dc Owens (BLOOD TESTER) [address] [place] [address] 79357-520 0 06/25/2019 09:11:39 06/25/2019 18:05:30 [id number] Dc Owens (BLOOD TESTER) [address] [place] [address] 04712-757 0 07/09/2019 13:44:48 07/10/2019 09:08:12 Vulvitis 24391706 N76.2 used boric acid doucheiatr ogenic Fibromyalgia 026967882 M 79.7 [id number] MD Roman Yin (Adult Med) [address] [place] [address] [id number] 0 08/18/2019 15:35:47 08/19/2019 14:20:31 Spasm 69643131 R25.2 Fibromyalgia 980880846 M 79.7 Depressive disorder 3548 9007 F32.9 Anxiety 87837491 F41.9 [id number] MD Roman Yin (Adult Med) [address] [place] [address] 28708-914 0 01/19/2020 08:50:40 01/20/2020 13:03:04 Disorder of maxilla 014561829 K08.20 F/U with dentist Temporoman dibular joint disorder 57908053 M26.609 Consider use of other nsaid. Get other dental opinion [id number] MD Roman Yin (Adult Med) [address] [place] [address] 27506-952 0 03/01/2020 09:43:53 03/02/2020 09:30:55 Abnormal weight loss 312651529 R63.4 Abnormal t hyroid hormone 693516062 R94.6 Tachycardia 6711482 R00. 0 Tremor 67492211 R25.1 [id number] Dc Brooks Roman (BLOOD TESTER) [address] [place] [address] 66674-648 0 07/07/2020 08:14:08 07/13/2020 06:38:17 Screening mammography 75456437 Z12.31 [id number] MD Roman Yin (Adult Med) [address] [place] [address] [id number] 0 09/29/2020 12:49:35 09/30/2020 07:38:01 Otitis externa 2813753 H60.92 [id number] NELI SIERRA (BLOOD TESTER) [address] [place] [address] 77690-028 0 10/13/2020 14:55:31 10/28/2020 12:34:54 Mass of right breast 3802393653 9624936 N63.10 -Lump in R breast x1 month, doubled in size in 2 days now with overlying erythema-L ast mammogram was 07/2020, unremarkab le except for small cysts in b/l breasts-Fa hallie hx of breast cancer in maternal aunt-Hx of dense breast tissue and benign cysts-Orde r for diagnostic mammogram and breast US given today Skin lesion 36570652 L98 .9 -Small 0.5cm macule on L breast with irregular borders-De referral sent today for skin check [id number] MD Roman Yin (Adult Med) [address] [place] [address] 57851-206 0 01/05/2021 15:27:48 01/11/2021 10:36:35 Gastroesophageal reflux disease 847439613 K21.9 Hyperlipidemia 93773436 E78.5 Irritable bowel syndrome 13457204 K58.9 Abnormal t hyroid hormone 555219147 R94.6 Hyperglycemia 69891691 R 73.9 Vitamin D deficiency 347 51794 E55.9 Popping se nsation in ear 991341849 H93.299 Pt to start cetirizine [id number] Juan Owens (BLOOD TESTER) [address] [place] [address] [id number] 0 03/03/2021 09:48:33 03/11/2021 14:16:05 Venereal disease screening 289121219 Z11.3 Z72.89 Vaginal discharge 431314 006 N89.8 Patient concerned for candidiasi s. - no evidence of infection. Common use of wet-wipes. Denies intravagin al cleaning. Report history of Chronic BV. Also reports swelling and some pelvic pressure. Previously seen by PT and Urogynecol ogist. Mild anterior prolapse today. Encouraged follow up with [facility]. Pap up to date: 01/2017 = NILM, HPV neg. next pap 01/2022. [id number] MD Roman Yin (Adult Med) [address] [place] [address] [id number] 0 03/15/2021 11:16:30 03/16/2021 13:35:31 History of SARS-CoV-2 0383253886 10709909 Z86.16 Will order REGEN-COV [id number] FERNANDO Gardner (Adult Med) [address] [place] [address] 68992-337 0 03/22/2021 10:14:04 03/22/2021 10:24:34 [id number] FERNANDO Gardner (Adult Med) [address] [place] [address] 96618-450 0 04/12/2021 15:22:46 04/12/2021 16:09:56 [id number] MD Roman Yin (Adult Med) [address] [place] [address] 10076-250 0 04/12/2021 16:57:19 04/15/2021 11:41:23 Tobacco dependence syndrome 10966513 F17.200 Discussed choosing specific start date after beginning wellbutrin SR [id number] FERNANDO Gardner (Adult Med) [address] [place] [address] 80888-725 0 05/16/2021 15:50:21 05/17/2021 09:23:08 [id number] MD Roman Yin (Adult Med) [address] [place] [address] 68740-745 0 08/11/2021 16:22:04 08/12/2021 11:21:58 Onychomycosis 738667806 B35.1 [id number] NELI SIERRA (BLOOD TESTER) [address] [place] [address] 93041-307 0 09/28/2021 15:08:36 09/30/2021 11:05:21 Acute vaginitis 50893531 N76.0 Will treat for vaginal candidiasi s due to history with Diflucan 150 mg. Nuswab completed today. Will treat other infections if indicated per results. RTC if symptoms persist. [id number] NELI SIERRA (BLOOD TESTER) [address] [place] [address] 15444-882 0 12/02/2021 16:30:35 12/15/2021 09:50:02 Gynecologic examination 03137680 Z01.419 Pelvic exam unremarkab le.-Cervic al cancer screening: Hysterecto mp9960.-Di et/exercis e: Counseled regarding importance of physical activity, healthy diet and appropriat e calcium / vitamin D intake.- Return to clinic in 1 year Venereal d isease screening 367570898 Z11.3 Pt reporting intermitte nt vaginal swelling and dyspareuni a. PE unremarkab le. Follow up nuswab to rule out infection. Screening for malignant neoplasm of breast 367635087 Z12.31 Last breast imaging Oct 2020 and May 2021, BIRADS 2 with benign appearing cysts. Annual screening mammogram order provided. [id number] NELI SIERRA (BLOOD TESTER) [address] [place] [address] 12078-874 0 11/22/2022 10:45:49 11/29/2022 09:21:20 Multiple cysts of breast 225685196 N60.11 N60.12 Last imaging Dec 2021 with stable simple cysts in bilateral breasts, including stable right midline 11mm lesion at area of concern. New pea-sized lesion palpated on exam today in R breast, 6 o'clock. Will follow up with diagnostic imaging. Referral placed to breast surgeon to discuss management options. Cyst of left ovary [address] abd/pelvis September 2022 with two left adnexal lesions measuring up to 37mm likely representi ng dominant follicles/ cysts. Will follow up with [facility] to further assess. [id number] NELI SIERRA (BLOOD TESTER) [address] [place] [address] [id number] 0 01/26/2023 15:30:23 01/31/2023 13:01:45 Cyst of left ovary 2690856035 4102785 N83.202 Pelvic abscess 752955739 K65.1 Admitted to [facility] from 01/21-01/01 3 for severe LLQ abdominal pain found to be 4cm pelvic abscess on CT. s/p IV abx and compliant with PO Amoxicilli n. Persistent but improved LLQ pain. No fever, chills, peritoneal signs, and bruising. No hospital records on file, will obtain.-Or brenda [facility] to monitor-Fi [place] antibiotic course-Dis cussed ER precaution s for sudden worsening pain [id number] MD Roman Yin (Adult Med) [address] [place] [id number] [id number] 02/20/2023 12:03:18 02/27/2023 11:13:31 Pain in bilateral lower legs [id number] M79.661 M79.662 Will order doppler. Pt will f/u with her cardiologi st Pain [id number] R52 Chronic constipation [id number] K59.09 F/u GI Ferritin l evel below reference range [id number] R77.8 [id number] NELI SIERRA (BLOOD TESTER) [address] [place] [address] [id number] 0 03/15/2023 10:50:42 04/03/2023 16:47:42 Hot sweats [id number] R61 Pt reports night sweats and hot flashes x2 weeks. Labs ordered to check hormone levels. Will f/u with patient. Increased frequency of urination [id number] R35.0 Increased frequency of urination. Denies dysuria or hematuria. Trace blood on UA today, will send urine for culture and will check A1c. Health Concerns Section Related Observation LastModified by Organization Detai ls LastModified Time None Recorded Concern Status LastModified by Organization Details LastModified Time None Recorded Advance Directives Directive N: Payers Encounter Date Sequence Insurance Name Policy Number Policy Escamilla Covered Member ID Escamilla Member ID Guarantor Name 12/02/2021 1 [employer] - [employer] - HOME CARE & [employer] - OPEN ACCESS III (PPO) Tootie Gleason [id number] Tootie Gleason 11/22/2022 1 [employer] - I - HOME CARE & [employer] - OPEN ACCESS III (PPO) Tootie Gleason [id number] Tootie Gleason 01/26/2023 1 [employer] - I - HOME CARE & [employer] - OPEN ACCESS III (PPO) Tootie Gleason [id number] Tootie Gleason 02/20/2023 1 [employer] - I - HOME CARE & [employer] - OPEN ACCESS III (PPO) Tootie Gleason [id number] Tootie Gleason 03/15/2023 1 [employer] - I - HOME CARE & [employer] - OPEN ACCESS III (PPO) Tootie Gleason [id number] Tootie Gleason Notes Date Note Type Note Provider Name and Address Organization Details Recorded Time 12/02/2021 text/html Tootie Gleason is a 41 year-old female with extensive past medical history including hysterectomy, ex lap, fibromyalgia who presents for an annual well women exam with complaints of painful breasts, dyspareunia, and volatile bowel spasms. Pt states that she has suffered from stomach pains with volatile spasms of the bowels since 2011. She has been prescribed many different medications that has not helped. In addition, she has seen Cardiology, Pulmonology, Endocrinology, Rheumatology, and Gastroenterology. In 2011, she had her gallbladder removed without relief. She has had previous history of heavy bleeding with abnormal bleeding. Therefore, she had a hysterectomy, but still have her ovaries. She states that she was previously diagnosed with early stages of bladder prolapse, but physical therapy helped to resolve any issue. Currently, she states that she has dyspareunia and states her vaginal will swell occasionally. Denies discharge, lesions. In addition to dyspareunia, she complains of painful breasts. She continues that they cycle between being swollen, painful with hot flashes, and hair falling out. She was previously found to have cystic breasts. She has had yearly mammograms with benign findings. She is currently not taking medication for years, nor seeing a psychiatrist for any psychiatric illnesses. NELI SIERRA Attn: [address]ing[address] [place], [address], [facility] 12/14/2021 15:54:17 11/22/2022 text/html 42yo F with h/o hysterectomy, ovarian cystectomy, bilateral breast cysts presents today for breast issues and mammogram rx. Pt states she has known cysts in bilateral breasts but one cyst on her R breast midline near sternum has been persistent and causing her pain. She usually gets cyclic breast pain bilaterally but this cyst is tender constantly. She is interested in referral for drainage/removal. She is unsure if new cysts are present, due for annual mammogram. She also reports recent abdominal imaging revealed adnexal cyst. She had prior cystectomy in 2005 so she wants to make sure everything is ok. She has chronic abdominal pain from IBS so unsure if pain is related to cyst. NELI SIERRA Attn: Accounting[address] [facility], [place], [address], [facility] 11/23/2022 14:33:56 01/26/2023 text/html 42 yo F with his tory of IBS, L ovarian cyst presents to the clinic for a hospital follow up. She was admitted at [facility] from 01/21-01/22 for LLQ abdominal pain found to be an 4cm abscess on CT. She received IV abx while in patient and compliant with out patient PO amoxicillin. Patient states pain has improved but persistent. She was told abscess believed to be from ovary and was told to follow up here. Denies fever, chills, n/v/d, dysuria, hematuria, vaginal discharge, bleeding, rashes and lesions. NELI SIERRA Attn: Accounting[address] [place], [address], [facility] SI 01/31/2023 07:06:53 02/20/2023 text/html Pt here because of daily leg pain for the past three months. She has had leg pain in past but of lesser severity. She did see pain management about one month ago. She saw chiroptacter about two months ago but is unable to continue because of cost. Pt had also been seeing warehouse examiner for problem associated with low ferritin.Pt was prescribed iron but is unable to tolerate oral iron. Pt has been working with GI specialist for chronic constipation. Adrian Bryant MD Attn: Accounting[address] [facility], [place], [address], [facility] 02/20/2023 13:47:52 03/15/2023 text/html Tootie is a 42 y/o F with h/o hysterectomy here for a follow up. She reports going to the ER at [place] for abdominal pain in late December and treated for pelvic abscess. She had follow up CT recently and is here to discuss the results. She has abdominal pain that she states is due to gastritis. She is not taking any medications other than occasional famotidine. She reports hot flashes [id number]. She reports waking up in the middle of the night recently with anxiety. Also reporting increased frequency of urination. Denies dysuria, hematuria, fevers, chills, n/v. NELI SIERRA Attn: Accounting[address] [facility], [place], [address], [facility] - [facility] 03/30/2023 17:31:48 OBGyn Episode Ob Episode Information Episode Created Date Number of Fetuses Patient Bloodtype Patient rh Status Prepregnancy Weight lbs Domestic Partner Domestic Partner Phone Father Name Mail Handler Sorter Status 06/16/19 15 1 CLOSED Fetus Data First Name Last Name Admitted to NICU Weight (g) Sex Living Outcome Pediatric Complications Fetus ID Race Codes Race Delivery Type 3601.52 048 F Full Term [id number] Vaginal Benjie Calculation Initial Benjie Date Initial Exam Date Initial Exam Provider Initial Ultrasound Date Last Menstrual Period Date Ultra Sound Weeks Gestation 0 Eighteen To Twenty Week Benjie Update Ultra Sound Date Fundal Height At Umbil Quickening Date Ultra Sound Latest Weeks Gestation Final Benjie Confirmed By Final Benjie Confirmed Date Final Benjie Date Ultra Sound Latest Days Gestation 0 0 Menstrual History Last Menstrual Date Menses Monthly On Bcp Conception Prior Menses Frequency Hcg Plus Date Menarche Onset Age Delivery Information Delivery Date Delivery Type Labor Anesthesia Weeks Gestation Incision Type Labor Labor Length Hrs Delivered By Post Complications Tubal Sterilization Discharge Date Comments 0 [facility] Discharge Information Feeding Method Contraceptive Method Maternal HG B and HCT Levels Ob Episode Information Episode Created Date Number of Fetuses Patient Bloodtype Patient rh Status Prepregnancy Weight lbs Domestic Partner Domestic Partner Phone Father Name Mail Handler Sorter Status 06/16/19 15 1 CLOSED Fetus Data First Name Last Name Admitted to NICU Weight (g) Sex Living Outcome Pediatric Complications Fetus ID Race Codes Race Delivery Type 2921.13 248 F Full Term [id number] Vaginal Benjie Calculation Initial Benjie Date Initial Exam Date Initial Exam Provider Initial Ultrasound Date Last Menstrual Period Date Ultra Sound Weeks Gestation 0 Eighteen To Twenty Week Benjie Update Ultra Sound Date Fundal Height At Umbil Quickening Date Ultra Sound Latest Weeks Gestation Final Benjie Confirmed By Final Benjie Confirmed Date Final Benjie Date Ultra Sound Latest Days Gestation 0 0 Menstrual History Last Menstrual Date Menses Monthly On Bcp Conception Prior Menses Frequency Hcg Plus Date Menarche Onset Age Delivery Information Delivery Date Delivery Type Labor Anesthesia Weeks Gestation Incision Type Labor Labor Length Hrs Delivered By Post Complications Tubal Sterilization Discharge Date Comments 8 [facility] Discharge Information Feeding Method Contraceptive Method Maternal HG B and HCT Levels
--- OUTSIDE RECORDS SUMMARY | 2024-04-28 20:16 | XMS_ITS | Clinical Summary ---
Author Organization [facility] [employer] Address [address] [place] [address] Care Team Providers Care Composition Mixer Name Role Phone Adrian Bryant MD Primary Care Provider [phone] Source Comments [facility] [employer],non-[facility] Affiliates and Associated Physician Practices is amultiple site organization consisting of ambulatory clinics and hospital sitesin [place], [place], [place]. This disclosure is being madepursuant to the Care Everywhere program and may not contain all information available regarding this patient. Last updated 17.[facility] [employer] Allergies Active Allergy Reactions Criticality Noted Date [...] Orientation Not on file Plan of Treatment Health Maintenance Due Date Last Done Comments COLOGUARD (AGES 45-75) - COL ON CA SCREENING 1978 COLON MONITORING 1978 COLONOSCOPY - COLON CA SCREENING 1978 CT COLONOGRAPHY - COLON CA SCREENING 1978 Colorectal Cancer Screening 1978 FIT - COLON CA SCREENING 1978 FLEX SIG - COLON CA SCREENING 1978 LIPID TESTING 1978 MAMMOGRAM 1978 PAP SMEAR 1978 HIV SCREENING 1993 HEPATITIS C SCREENING 11/04/1996 DTAP/TDAP/TD VACCINES (1 - Tdap) 1997 HEPATITIS B VACCINE (1 of 3 - 19+ 3-dose series) 1997 PNEUMOCOCCAL VACCINE (1 of 2 - PCV) 1997 COVID-19 VACCINE (1 - 2023-2 5 season) 2023 INFLUENZA VACCINE (#1) 2023 DEPRESSION SCREENING 04/02/2024 ZOSTER VACCINE (1 of 2) 2028 HIB VACCINE Aged Out No longer eligi ble based on patient's age to complete this topic HPV VACCINE Aged Out No longer eligi ble based on patient's age to complete this topic MENINGOCOCCAL (Group B) VACCINE Aged Out No longer eligible based on patient's age to complete this topic MENINGOCOCCAL VACCINE Aged Out No fili nuris eligible based on patient's age to complete this topic Care Teams Composition Mixer Relationship Specialty Start Date End Date Adrian Bryant MD [address] [place] [address] PCP - General 11/25/20
[2024-04-28 20:29] VITALS: BP 122/82; PULSE 96; RESP 20; TEMP 37.1; O2SAT 98
--- OUTSIDE RECORDS SUMMARY | 2024-04-28 22:11 | XMS_ITS | Clinical Summary ---
Author Organization [facility] Address [address] [place] [address] Phone Care Team Providers Care Milk Sampler Name Role Phone Unavailable Primary Care Provider [...] cm (5' 2 ) 03/20/2023 2:43 PM MANAGER BAKERY Body Mass Index 24.66 03/20/2023 2:43 PM MANAGER BAKERY Plan of Treatment Health Maintenance Due Date [...] MAMMO BILAT DIAGNOSTIC Routine 04/10/2023 2:28 PM MANAGER BAKERY from Last 3 Months or Most Recently Relevant to Health Maintenance Results * MAMMO BILAT DIAGNOSTIC (04/10/2023 2:28 PM MANAGER BAKERY) Anatomical Region Laterality Modality Breast Bilateral Other David Baptiste MD MAMMO ORDERABLES Final Result from Last 3 Months or Most Recently Relevant to Health Maintenance Insurance Nestio O OPEN ACCESS Nest[employer] OPEN ACCESS
--- OUTSIDE RECORDS SUMMARY | 2024-04-28 22:11 | XMS_ITS | Referral Summary ---
Author Organization [facility] Address [address] [place] [address] Care Team Providers Care Flower Planter Name Role Phone Adrian Bryant MD Primary Care Provider Source Comments [facility],non-[facility] Affiliates and Associated Physician Practices is amultiple site organization consisting of ambulatory clinics and hospital sitesin [place], [place], [place] and [place]. This disclosure is being madepursuant to the Care Everywhere program and may not contain all information available regarding this patient. Last updated 17.[facility] [employer] Allergies Active Allergy Reactions Criticality Noted Date [...] of Treatment Not on file Care Teams Flower Planter Relationship Specialty Start Date End Date Adrian Bryant MD [address] [place] [address] PCP - General 11/25/20
--- OUTSIDE RECORDS SUMMARY | 2024-04-28 22:11 | XMS_ITS | Patient Health Summary ---
Author Organization [facility] Address [address] [place] [address] Care Team Providers Care General Manager [employer] Name Role Phone Adrian Bryant MD Primary Care Provider [phone] Note from [facility],non-owned Affiliates and Associated Physician Practices is amultiple site organization consisting of ambulatory clinics and hospital sitesin [place], [place], [place] and [place]. This disclosure is being madepursuant to the Care Everywhere program and may not contain all information available regarding this patient. Last updated 17.[facility] Allergies * Codeine(Vomiting) -High Criticality * Hydromorphone(Dizziness,Unknown) [...] Orientation Not on file Procedures * CYTOLOGY NON-SUPERVISOR SCREEN MAKING PANEL(Performed 12/23/2004) * GROSS + MICRO EXAM(Performed 12/23/2004) Results * CYTOLOGY NON-SUPERVISOR SCREEN MAKING PANEL (12/23/2004 12:43 PM CDT) Result CASE [...] Released By ?GENESIS COLE CPT Code ? 31810, 23077 MISCELLANEOUS SAMPLES / Unknown 12/23/2004 12:43 PM CDT 12/23/2004 12:45 PM CDT Historical Provider LAB - PATHOLOGY/C YTOLOGY ORDERABLES * GROSS + MICRO EXAM (12/23/2004 11:35 AM CDT) Result CASE NUMBER [id number] Comment: ORDERING PHYSICIAN ??TERESA BROTHERS SPECIMEN TYPE ?Ovary cyst-lt Surgeon ?DR. [...] Released By ?GENESIS COLE CPT Code ? 00195 MISCELLANEOUS SAMPLES / Unknown 12/23/2004 11:35 AM CDT 12/23/2004 11:36 AM CDT Historical Provider LAB - PATHOLOGY/C YTOLOGY ORDERABLES Care Teams General Manager [employer] Relationship Specialty [place] [address] [place] [address] [facility] - General 11/25/20
--- OUTSIDE RECORDS SUMMARY | 2024-04-28 22:11 | XMS_ITS | Clinical Summary ---
Author Organization [facility] [employer] Address [address] [place] [address] Care Team Providers Care Director Of Financial Aid Name Role Phone Adrian Bryant MD Primary Care Provider Source Comments [facility] [employer],non-[facility] Affiliates and Associated Physician Practices is amultiple site organization consisting of ambulatory clinics and hospital sitesin [place], [place], [place] and [place]. This disclosure is being madepursuant to the Care Everywhere program and may not contain all information available regarding this patient. Last updated 17.[facility] [employer] Allergies Active Allergy Reactions Criticality Noted Date [...] age to complete this topic Care Teams Director Of Financial Aid Relationship Specialty Start Date End Date Adrian Bryant MD [address] [place] [address] PCP - General 11/25/20
--- OUTSIDE RECORDS SUMMARY | 2024-04-28 22:11 | XMS_ITS | Clinical Summary ---
Author Organization [facility] Address [address] [place] [address]. [place], [place] [address] [place] [address] Care Team Providers Care Clothing Busheler Name Role Phone Adrian Bryant MD Primary Care Provider [phone] Medications traMADol (ULTRAM) 50 MG tablet TAKE [...] patient's age to complete this topic Insurance [employer] [facility] Care Teams Clothing Busheler Relationship Specialty Start Date End Date Adrian Bryant MD [address] [place] [address] PCP - General INTERNAL MEDICINE 01/11/22
--- OUTSIDE RECORDS SUMMARY | 2024-04-28 22:11 | XMS_ITS | CONTINUITY OF CARE DOCUMENT ---
Author Name salima, salima Address Unknown Organization [facility] Address [address] [place] [address] Phone [phone] Care Team Providers Care Fur Repairer Name Role Phone Sisi BALTAZAR, Amor Mahoney Unavailable [phone] YOANDY BALTAZAR, GERMAIN Champagne Unavailable VINOD BALTAZAR, CHELI Khanna Unavailable PROBLEMS Condition [...] In-person encounter Office Visit Amor Laird MD [facility] Cardiology examination - In-person encounter Office Visit Amor Laird MD [facility] - In-person encounter Office Visit Amor Laird MD [facility] - In-person encounter Office Visit Amor Laird MD [facility] Cardiology examination - In-person encounter Office Visit Benoit Cates MD [facility] - In-person encounter Office Visit Amor Laird MD [facility] - In-person encounter Office Visit Amor Laird MD [facility] Tobacco use - In-person encounter Office Visit Amor Laird MD [facility] CHEST PAIN - In-person encounter Office Visit Amor Laird MD [facility] Office CHEST PAINTobacco useAbnormal nuclear stress test - NL cardiac CT 09/2018 calcium score 0Palpitations - In-person encounter Office Visit Amor Laird MD [facility] Abnormal nuclear stress test - NL cardia c CT 09/2018 calcium score 0 - In-person encounter Office Visit Amor Laird MD [facility] HypercholesterolemiaCHEST PAIN-TYPE TO B E DETERMINEDSHORTNESS OF BREATHPALPITATIONSTobacco useBipolar disorderFamily History Premature CAD - In-person encounter Office Visit Laurence Hannon MD [facility] CHEST PAIN - In-person encounter Office Visit Laurence Hannon MD [facility] - In-person encounter Office Visit Laurence Hannon MD [facility] ANXIETY DISORDERDEPRESSIONHypercholesterolemia VITAL SIGNS Date Observation Value Provider Body Mass Index (Ratio) 23.26 kg/m2 Amor Laird MD oxygen saturation, oximetry 99 % Ariel Alvarenga blood pressure, cuff size regular Juan Luis wilson Alvarenga blood pressure, diastolic 87 mm[Hg] Juan Luis lemusn Alvarenga blood pressure, systolic 106 mm[Hg] Dali malin Alvarenga pulse rate 90 /min Juan [facility] Alvarenga weight E&M 127.2 [lb_av] Juan Luisaron Alvarenga height E&M 62 [in_i] [facility] Body Mass Index (Ratio) 23.59 kg/m2 Anup as Nafisa blood pressure, diastolic 82 mm[Hg] Li nkLogic blood pressure, systolic 123 mm[Hg] Chiara kLogic blood pressure, cuff size regular Ja rret blood pressure, diastolic 82 mm[Hg] Ja rret blood pressure, systolic 123 mm[Hg] Jar ret pulse rate 86 /min Jairo oxygen saturation, oximetry 97 % Jairo respiratory [...] Wynn blood pressure, diastolic 84 mm[Hg] Mi gurwinder [place] blood pressure, systolic 122 mm[Hg] Manuel tonja [place] oxygen saturation, oximetry 98 % Cortney Wynn respiratory rate E&M 16 /min Cece Wynn pulse rate 75 /min Cortney bray weight E&M 125 [lb_av] Cortney bray height E&M 62 [in_i] Cortney bray Body Mass Index (Ratio) 22.86 kg/m2 Juan hoffman Rafael pulse rate 90 /min Gabino [facility] erg blood pressure, diastolic 86 mm[Hg] Al duglas Rafael blood pressure, systolic 124 mm[Hg] Sridevi dao Rafael weight E&M 125 [lb_av] Gabino [facility] erg height E&M 62 [in_i] [facility] erg Body Mass Index (Ratio) 25.42 kg/m2 Juan dalton Rafael blood pressure, diastolic 88 mm[Hg] Ch astity Vik blood pressure, systolic 103 mm[Hg] Randa stity Vik oxygen saturation, oximetry 98 % [facility] Vik pulse rate 98 /min [facility] Vik respiratory rate E&M 18 /min Chastit y Vik weight E&M 139 [lb_av] [facility] E&M 62 [in_i] [facility] Body [facility] (Ratio) 24.69 kg/m2 Juan [facility] pulse rate 96 /min Gabino [facility] [employer] blood pressure, diastolic 78 mm[Hg] Al [facility] blood pressure, systolic 116 mm[Hg] [facility] weight E&M 135 [lb_av] Gabino [facility] [employer] height E&M 62 [in_i] [facility] erg Body Mass Index (Ratio) 25.05 [...] pressure, diastolic, left arm 78 mm [Hg] [facility] blood pressure, systolic, left arm 116 mm [Hg] [facility] blood pressure, diastolic, right arm 70 m m[Hg] [facility] blood pressure, systolic, right arm 116 m m[Hg] [facility] blood pressure, resting No [facility] Body Mass Index (Ratio) 24.69 kg/m2 [facility] blood pressure, cuff size regular Cy maria Goyal blood pressure, diastolic 78 mm[Hg] Cy maria Goyal blood pressure, systolic 116 mm[Hg] Lorene Goyal respiratory rate E&M 16 /min Lidia oGyal pulse rate 97 /min Lidia amaral oxygen [...] systolic, left arm 126 mm [Hg] Ara Qunaran blood pressure, diastolic, right arm 74 m [...] mm[Hg] Patrice Medel pulse rate 93 /min Jimmieaugsuto Medel oxygen saturation, oximetry 98 % Ara [...] Interpretation Location LDL cholesterol, serum 130 mg/dL [facility] LDL cholesterol, serum 174 mg/dL [facility] alanine aminotransferase (SGPT), serum 17 1/L [employer] [...] <200 High platelet count 254 10*3/uL [facility] center[facility] Montes hematocrit, blood 40.6 % [facility] international normalized ratio (INR) 1.0 [facility] platelet count 230 10*3/uL [facility]riceb[facility] medical centerobdulio Montes hematocrit, blood 39.9 % Kathia Montes LDL cholesterol, serum 140 mg/dL [facility] cholesterol, serum 206 mg/dL Kathia Montes alanine [...] Two puffs twice a day - Gabino [facility] NORTRIPTYLINE HCL 25 MG ORAL CAPSULE completed One capsule daily - Gabino [facility] NIASPAN 1000 MG ORAL TABLET EXTENDED RELEASE completed 2 tablets daily - Gabino [facility] CRESTOR 40 MG ORAL TABLET completed ONE TAB. DAILY - Gabino [facility] CYCLOBENZAPRINE HCL 10 MG ORAL TABLET completed One tablet at bedtime as needed - Gabino [facility] PREMARIN TABLET completed Take 1 tab twice a week - Gabino [facility] NAPROXEN 500 MG ORAL TABLET completed Take 1 tab twice daily as needed - Gabino [facility] EVENING PRIMROSE OIL 1000 MG ORAL CAPSULE completed Take 1 tab daily in evening time - [facility] VITAMIN E 400 UNIT ORAL TABLET completed Take 1 tab twice daily - [facility] VITAMIN D3 46943 UNIT ORAL TABLET completed TAke 1 tab [...] P karmen has been counseled to quit. Amor Laird MD social history reviewed E&M [...] smoking history, tot al pack/day 1 Cortney [place] cigarette use yes Cortney Doty carmine smoking status Current every day smoker Denzel srivastava Wynn social history reviewed E&M revi ewed - no changes required [facility] social history E&M Smoking Histo ry: P karmen currently smokes every day. P karmen has been counseled to quit. [facility] smoking/tobacco cess ation, patient education and counseling yes [facility] physical exercise, frequency, days per week no [facility] caffeine use, averag e drinks per day 1+ [facility] smoking, year quit 2019 [facility] number of years as a smoker 10+ [facility] smoking history, tot al pack/day 1 [facility] cigarette use yes [facility] smoking status Current every day smoker A wes [facility] social history reviewed E&M revi ewed - no changes required [facility] physical exercise, frequency, days per week no Jazzy Vik caffeine use, averag e drinks per day 1+ Rnadastjony Vik smoking, year quit 2019 Chastity Vik number of years as a smoker 10+ Chastity Vik smoking history, tot al pack/day 1 Jazzy Chery cigarette use yes Jazzy Chery smoking status Former smoker Jazzy flores social history E&M Smoking Histo ry: P karmen is a former smoker. Gabino [facility] social history reviewed E&M revi ewed - no changes required [facility] smoking, year quit 2018 [facility] physical exercise, frequency, days per week no [facility] caffeine use, averag e drinks per day 1+ [facility] number of years as a smoker 10+ [facility] smoking history, tot al pack/day 1 [facility] cigarette use yes Gabino [facility] smoking status Former smoker Gabino Baird [facility] alcohol use no Amor Laird MD social [...] karmen has been counseled to quit. Gabino [facility] social history reviewed E&M revi ewed - [...] physical exercise, frequency, days per week no [facility] caffeine use, averag e drinks per day yes [facility] alcohol use, average drinks per day social basis only [facility] number of years as a smoker 10 years or m ore [facility] smoking status Smoker [facility] caffeine use, averag e drinks [...] RN FAMILY HISTORY Family Member Condition Mother ME female <65 Maternal Grandmother Family History of C oronary Artery Disease: Maternal Grandfather Family History of C oronary Artery Disease: Uncle Family History of Co ronary Artery Disease: Aunt Family History of Co ronary Artery Disease: Mother Family History Coron narayan Heart Disease female < 65: INSURANCE PROVIDERS Payer name Policy type / Coverage type Ca [employer] alliance party ID Recurve Other [id number] ADVANCE DIRECTIVES Name Date DISCUSSED - NO DECISION MADE TREATMENT PLAN Date Name Performer [id number],B, No CP or SOB Her updated medication list for this problem includes: Metoprolol Tartrate 25 Mg Tablet (Metoprolol tartrate) ..... 1/2 tablet twice a day Juanpablo Sofie [id number],B,L DL 96 on Praluent. will continue current meds. Cannot tolerate statins. Her updated medication list for this problem includes: Praluent Pen 150 Mg/ml Pen Injector (Alirocumab) ..... Inject 1 pen under the skin every 2 weeks Juanpablo Carrizales [id number],S,I ntolerant of statins. F balwinder on Zetia. R emains very high (LDL 169). W ill send script for Repatha. Benoit Cates MD [id number],S, Benoit mesa MD [id number],S, Benoit mesa MD [id number],S,I ntolerant of statins. F balwinder on Zetia. R emains very high (LDL 169). Benoit Cates MD [id number],S,I nappropriate sinus tach. T ry low dose BB. Benoit Cates MD [id number],S, P t quit smoking in 03/2019. Amor Laird MD [id number],C, LDL is 180 on Zetia. She cannot [...] tablet once a day Amor Laird MD [id number],C,T he pt continues to have episodes of tachycardia with mild exertion. We discussed trying low dose Metoprolol she prefers to hold off at this time. L Amor Laidr MD [id number],C,T he pt continues to have episodes of [...] nappropriate sinus tach. [facility]: H er updated medication list for [...] She had a recent CP admission and ME was ruled out. Stress test in the summer was normal. We discussed ILR and she will consider it further after GI workup is complete. She will contact us after her GI workup. Gabino [facility] TeleHealth:Continues to have palpitations. She had a recent CP admission and ME was ruled out. Stress test in the summer was normal. We discussed ILR and she will consider it further after GI workup is complete. Gabino [facility] Cardiology:She has b een on Zetia for 2 months and we will obtain lipid panel and see if she needs PCSK9 inhibitors. CHOL: 245 (06/12/2019) HDL: 57 (06/12/2019) LDL: 174 (06/12/2019) TRI (06/12/2019) Her updated medication list for this problem includes: Zetia 10 Mg Oral Tablet (Ezetimibe) ..... One daily Niaspan 1000 Mg Oral Tablet Extended Release (Niacin (antihyperlipidemic)) ..... 2 tablets daily [facility] Cardiology:Event mon itor showed no evidence of arrhythmia. [facility] Cardiology:Complains of more episodes of left arm and chest discomfort. Had an abnormal stress test last year but CT calcium score was 0. She is reluctant to have cardiac cath and prefers to schedule a stress test. [facility] Cardiology:Complains of more episodes of left arm and chest discomfort. Had an abnormal stress test last year but CT calcium score was 0. She is reluctant to have cardiac cath and prefers to schedule a stress test. [facility] TeleHealth:She was s tarted on Crestor in [...] 57 (06/12/2019) LDL: 174 (06/12/2019) TRI (06/12/2019) [facility] TeleHealth:Pt quit smoking in . [facility] TeleHealth:Had an ep isode of palpitations and had to go to the ER. Will obtain telesentry. [facility] Cardiology follow up :Advised ag clairen to quit. [facility] Cardiology follow up :CardioIQ lipid panel results are pending. [facility] Cardiology follow up :No recent chest pain. Myoview scan showed mild septal wall ischemia however CT coronary calcium score was 0. Will monitor her symptoms. [facility] Cardiology New Patie nt :Orders: C ardioIQ Advanced Lipid Panel with Inflammation ([facility]) (43467) [facility] Cardiology New Patie nt :Orders: E KG (CPT-81905) C omplete Echo (CPT-42069) S tress Exercise Cardiolite (CPT-52099) C T, Coronary Calcium Score (CPT-79158) [facility] Cardiology New Patie nt :Pt was advised to quit. Tried Chantix in the past. Gabino [place] follow up Laurence Hannon MD follow up Laurence Hannon MD follow up: O rders: E KG (CPT-21166) Laurence Hannon MD follow up: T he following medications were removed from the medication list: Pravastatin Sodium 20 Mg Tabs (Pravastatin sodium) ..... One tab. daily BP today: 126/70 Prior BP: 116/81 (11/06/2011) C HOL: 206 (10/03/2011) LDL: 140 (10/03/2011) Laurence Hannon MD follow up: O rders: E KG (CPT-60110) BP today: 126/70 Prior BP: 116/81 (11/06/2011) [...] Laird MD complet ed Stress EKG Ricco eHndrix MD completed Cardiolite, 2 units Ricco Hendrix MD completed SPECT Images Ricco Hendrix MD completed CT- Coronary CA score Amor Laird MD completed EKG Amor Laird MD completed EKG Laurence Hannon MD completed EKG Laurence Hannon MD completed
[2024-04-28 22:14] LABS: Basophils Absolute Auto 0.1 K/mm3 (0.0-0.1); Basophils Percent Auto 1.1 % (0.2-1.2); Eosinophils Absolute Auto 0.1 K/mm3 (0-0.3); Eosinophils Percent Auto 1.3 % (0-4.4); Hemoglobin 14.2 g/dL (12.0-15.0); Immature Granulocyte Absolute 0.05 K/mm3 (0.00-0.031); Immature Granulocyte Percent A 0.5 % (0-0.5); Lymphocytes Percent Auto 29.4 % (18.3-44.2); Mean Corpuscular HGB Conc 34.6 g/dl (32-36); Mean Corpuscular Hemoglobin 29.7 pg (26-34); Mean Corpuscular Volume 85.8 fl (80-100); Mean Platelet Volume 10.4 fl (7.4-10.4); Monocytes Absolute Auto 0.7 K/mm3 (0.1-0.6); Monocytes Percent Auto 7.2 % (2.6-8.5); Neutrophils Percent Auto 60.5 % (45.5-73.1); Platelet Count Result 294 k/mm3 (150-375); Red Blood Count 4.78 M/mm3 (4.2-5.4); White Blood Count 9.9 K/mm3 (4.5-10.0)
[2024-04-28 22:15] VITALS: BP 114/81; PULSE 76; RESP 18; O2SAT 98
[2024-04-28 22:24] LABS: Alanine Aminotransferase 20 U/L (6-35); Albumin Level 4.1 g/dL (3.5-5.1); Alkaline Phosphatase 67 U/L (38-126); Anion Gap 6 mmol/L (4-12); Aspartate Amino Transferase 25 U/L (14-36); Bilirubin,Total 0.4 mg/dL (0.2-1.3); Blood Urea Nitrogen 12 mg/dL (7-17); Calcium 9.2 mg/dL (8.4-10.2); Carbon Dioxide 27 mmol/L (22-30); Chloride 106 mmol/L (98-107); Estimated CRCL calculation 61 ml/min; Estimated Glomerular Filt Rate > 60; Glucose 89 mg/dL (65-110); Lipase 107 U/L (23-300); Potassium 4.2 mmol/L (3.4-5.0); Sodium 139 mmol/L (137-145)
--- NOTE | 2024-04-28 22:30 | PC.NURSE ---
Patient had multiple complaints at this time. Patient states she is bipolar and manic and has not been getting treatment for that. Patient also complains of weight loss due to not being able to eat due to anxiety. patient states she thinks her anxiety is causing the GI problems .
[2024-04-28 22:31] LABS: Add Urine Microscopic? YES; Appearance Urine Cloudy (Clear); Bacteria Urine None Seen /hpf; Bilirubin Urine Negative (Negative); Blood Urine Negative (Negative); Color Urine Yellow (Yellow); Glucose Urine UA Negative (Negative); Ketones Urine Negative (Negative); Leukocyte Esterase Ur Negative LEU/UL (Negative); Nitrate Urine Negative (Negative); Non Pathogenic Casts 0-2; Protein Urine Negative (Negative); RBC Urine 0-2 /hpf (0-2); Squamous Epithelial Cell Urine None Seen /hpf (Few); Urobilinogen Urine 0.2 mg/dL (<2.0); WBC Urine 0-5 /hpf (0-3); pH Urine 7.5 (5.0-9.0)
--- NOTE | 2024-04-28 22:52 | PC.NURSE ---
Patient has had a hysterectomy so no chance of
[2024-04-28] MEDS: LACTATED RINGERS 1,000 ML 999 ML IV CONT (22:54)
[2024-04-28 23:33] LABS: Amphetamine Screen Urine Negative (Negative); Barbiturate Screen Urine Negative (Negative); Benzodiazepines Screen Urine Negative (Negative); Cannabinoid Screen Urine Negative (Negative); Cocaine Screen Urine Negative (Negative); Methadone Screen Urine Negative (Negative); Opiate Screen Urine Negative (Negative); Phencyclidine Screen Urine Negative (Negative)
[2024-04-28 23:38] LABS: Ethanol < 10 mg/dL (<10)
--- NOTE | 2024-04-29 00:22 | ED_ITS ---
HPI - Abdominal Pain General Chief Complaint: Abdominal Pain Stated Complaint: flank pain Time Seen by Provider: 04/28/24 21:52 History of Present Illness HPI narrative: 43-year-old female with a past medical history including bipolar depression, anxiety, irritable bowel syndrome. Patient presents to the emergency room today with multiple complaints. Patient is a poor historian and appears to be manic with her expressions and story telling. She states she is concerned that she is not eating or drinking and that she is hypoglycemic and causing injury to her kidneys. She states that she is not taking any bipolar medications even though she was previously on them. She is asking for mental health and crisis support. She states that she was seen by Psychiatry on outpatient basis and prescribe hydroxyzine and felt insulted that she was not being taken seriously. She denies any suicidal or homicidal ideations presently. Denies any hallucinations. Denies any nausea, vomiting, abdominal pain, fever, chills, chest pain, shortness a breath. She states that she has some minor low back pain presently. Related Data Home Medications ?Medication ?Instructions ?Recorded ?Confirmed ?Last Taken ?Type albuterol sulfate 90 mcg/actuation 2 puff inhalation PRN PRN 08/02/23 04/04/24 Unknown History aerosol inhaler Shortness Of Breath Or Wheezing pantoprazole 40 mg granules 40 mg PO DAILY 04/04/24 04/04/24 Unknown History delayed-release for susp in packet (Protonix) Allergies Allergy/AdvReac Type Severity Reaction Status Date / Time hydromorphone (From Dilaudid) Allergy Mild Palpitation Verified 04/04/24 11:07 s pravastatin Allergy Mild Palpitation Verified 04/04/24 11:07 s Review of Systems 2 Review of Systems: As [facility] Past Medical History Medical History Fibromyalgia Anxiety SELINA (obstructive sleep apnea) IBS (irritable bowel syndrome) GERD (gastroesophageal reflux disease) Asthma Surgical History Surgical History History of left oophorectomy History of partial hysterectomy Family History Family History Other Depression Anxiety Heart disease Grandparent Depression Anxiety Heart disease Grandparent Cerebrovascular accident Social History Social History Smoking packs per day: 1 Smoking cigarettes per day: 20.0 Years smoked: 22 Smoking pack-years: 22.00 Smoking status: Current every day smoker Tobacco type: cigarettes and e-cigarettes/vaping Second hand tobacco smoke exposure: No Alcohol intake: never Substance use: never Substance use type: does not use Do You Feel Safe in your Home?: Yes Lack of Transportation: No Lack of Food: Never True Current Housing: I Have Housing Concerned About Future Housing: No Difficulty Paying Gas/Electric Bills: No Difficulty Paying for Meds: No Currently Unemployed: No Education: High School Diploma/GED Difficulty w/ Childcare or Family Care: No Living arrangements: with family Spiritual care concerns: No Exam 2 Narrative: GENERAL: Manic in appearance and speech patterns, not in any acute distress, able to be verbally redirected HEAD: [Normocephalic, atraumatic.] EYES: [PERRLA and EOMI.] ENT: Nares clear, no rhinorrhea or epistaxis. Mucous membranes moist. NECK: Supple. CHEST: [Clear to auscultation. No respiratory distress.] HEART: [Regular rate and rhythm]. No murmur heard. [Normal peripheral pulses.] ABDOMEN: [Soft, nondistended], [nontender], [No rigidity or guarding] EXTREMITIES: Normal range of motion. [No edema.] SKIN: Warm, dry, no rash. NEURO: [No focal deficits]. Alert and oriented [x3.] PSYCH: Manic in appearance with tangential speech with pressured speech. No homicidal or suicidal ideation, not in any acute distress. Able to be verbally redirected easily. Course Vital Signs Vital signs: Vital Signs Temperature 37.1 C 04/28/24 20:29 Pulse Rate 96 04/28/24 20:29 Respiratory Rate 20 04/28/24 20:29 Blood Pressure 122/82 04/28/24 20:29 Pulse Oximetry 98 04/28/24 20:29 Oxygen Delivery Room Air 04/28/24 20:29 Temperature 37.1 C 04/28/24 20:29 Pulse Rate 63 04/29/24 01:54 Respiratory Rate 15 04/29/24 01:54 Blood Pressure 100/73 04/29/24 01:54 Pulse Oximetry 97 04/29/24 01:54 Oxygen Delivery Room Air 04/28/24 20:29 MDM - Abdominal Pain MDM Narrative Medical decision making narrative: 43-year-old female with history of bipolar depression, anxiety, depression, IBS. She presents with a myriad of complaints that seem to be unrelated. Her main concern is that she needs mental health crisis support but also wants to make sure that her body is in good health. Patient was previously on bipolar and depression medications per presently not taking anything. Denies any homicidal or suicidal behavior. She is not in any acute distress although does exhibited manic type behavior and pressured speech. Normal vital signs. Workup was ordered including CBC, CMP, thyroid studies, urinalysis, COVID swab. Will evaluate for any somatic concerns or issues that need to be addressed prior to having crisis evaluate the patient. Patient comfortable with this plan. Workup shows no leukocytosis or anemia. Chemistry panel within normal limits. Normal TSH, normal renal and hepatic function panel. Urinalysis without any signs of infection. Urine drug screen without any signs of intoxication. Negative alcohol level. Negative COVID swab. Patient is presently medically cleared for psychiatric evaluation and disposition. After their evaluation and recommendations the Psychiatry in crisis team recommended outpatient evaluation and treatment of set up a plan for consultation and visit tomorrow. Patient was very appreciative of this and expressed ankle as. She is safe and stable for discharge home at this time. Medical Records Attestation: I reviewed the patient's medical records. Lab Data Attestation: I reviewed the patient's lab results. 04/28/24 22:08 04/28/24 22:08 Labs: Lab Results 04/28/24 Range/Units 22:08 WBC 9.9 (4.5-10.0) K/mm3 RBC 4.78 (4.2-5.4) M/mm3 Hgb 14.2 (12.0-15.0) g/dL Hct 41.0 (37.0-47.0) % MCV 85.8 (80-100) fl MCH 29.7 (26-34) pg MCHC 34.6 (32-36) g/dl RDW 12.0 (11.5-14.5) % Plt Count 294 (150-375) k/mm3 MPV 10.4 (7.4-10.4) fl Immature Gran % (Auto) 0.5 (0-0.5) % Neut % (Auto) 60.5 (45.5-73.1) % Lymph % (Auto) 29.4 (18.3-44.2) % [place] % (Auto) 7.2 (2.6-8.5) % Eos % (Auto) 1.3 (0-4.4) % Baso % (Auto) 1.1 (0.2-1.2) % Lymph # (Auto) 2.90 (0.9-3.2) K/mm3 [place] # (Auto) 0.7 H (0.1-0.6) K/mm3 Eos # (Auto) 0.1 (0-0.3) K/mm3 Baso # (Auto) 0.1 (0.0-0.1) K/mm3 Abs Immat Gran (auto) 0.05 H (0.00-0.031) K/mm3 Absolute Neuts (auto) 6.0 (1.3-6.7) K/mm3 Absolute Nucleated RBC 0.000 (0.0-0.012) K/mm3 Nucleated RBC % 0.0 (0.0-0.2) % Sodium 139 (137-145) mmol/L Potassium 4.2 (3.4-5.0) mmol/L Chloride 106 (98-107) mmol/L Carbon Dioxide 27 (22-30) mmol/L Anion Gap 6 (4-12) mmol/L BUN 12 (7-17) mg/dL Creatinine 0.80 (0.7-1.0) mg/dL Estim Creat Clear Calc 61 ml/min Estimated GFR > 60 (59 - ) Glucose 89 (65-110) mg/dL Calcium 9.2 (8.4-10.2) mg/dL Total Bilirubin 0.4 (0.2-1.3) mg/dL AST 25 (14-36) U/L ALT 20 (6-35) U/L Alkaline Phosphatase 67 (38-126) U/L Total Protein 7.0 (6.3-8.2) g/dL Albumin 4.1 (3.5-5.1) g/dL Lipase 107 (23-300) U/L TSH (Reflex) 0.563 (0.465-4.68) uIU/mL Urine Color Yellow (Yellow) Urine Appearance Cloudy H (Clear) Urine pH 7.5 (5.0-9.0) Ur Specific [place] 1.010 (1.001-1.035) Urine Protein Negative (Negative) mg/dL Urine Glucose (UA) Negative (Negative) mg/dL Urine Ketones Negative (Negative) mg/dL Ur Blood (Man) Negative (Negative) Urine Nitrate Negative (Negative) Urine Bilirubin Negative (Negative) Urine Urobilinogen 0.2 (<2.0) mg/dL Leukocyte Esterase Rfl Negative (Negative) JOSSELIN/UL Urine RBC 0-2 (0-2) /hpf Urine WBC 0-5 (0-3) /hpf Ur Squamous Epith Cells None seen (Few) /hpf Urine Bacteria None seen /hpf Urine Casts 0-2 Urine Opiates Screen Negative (Negative) Urine Methadone Screen Negative (Negative) Ur Barbiturates Screen Negative (Negative) Ur Phencyclidine Scrn Negative (Negative) Ur Amphetamine Screen Negative (Negative) U Benzodiazepines Scrn Negative (Negative) Urine Cocaine Screen Negative (Negative) U Cannabinoids Screen Negative (Negative) Ethyl Alcohol < 10 (<10) mg/dL Discharge Plan Discharge Clinical Impression: Bipolar disorder, Abdominal pain Patient Disposition: Home, Self-Care Condition: Stable Instructions: Antibiotic Form Additional Instructions: Follow-up with your psychiatric team tomorrow, if you have any new or worsening concerns at any time you could always get repeat evaluation in the emergency department. Patient Language: Vietnamese Prescriptions: No Action pantoprazole [Protonix] [address] for susp in packet 40 mg PO DAILY albuterol sulfate 90 mcg/actuation HFA aerosol inhaler 2 puff INHALATION PRN PRN (Reason: Shortness Of Breath Or Wheezing) fluconazole 150 mg tablet 150 mg PO DAILY Qty: 1 0RF Rx Instructions: Take after you complete your antibiotics Follow-up/Referrals: Pamela Parekh MD [Primary Care Provider] - Time of Disposition: 02:53
[2024-04-29 00:34] LABS: Thyroid Stimulating Hormone Reflex 0.563 uIU/mL (0.465-4.68)
[2024-04-29 01:54] VITALS: BP 100/73; PULSE 63; RESP 15; O2SAT 97
[2024-04-29 03:05] VITALS: BP 125/69; PULSE 68; RESP 14; O2SAT 97
== END 2024-04-29 03:07 | disposition home or self-care (01) ==
PROVIDERS: Emergency Provider Student in an Organized Health Care Education/Training Program; PCP Family Medicine
DX: F31.9 Bipolar disorder, unspecified (principal); R10.9 Unspecified abdominal pain; F41.8 Other specified anxiety disorders; G47.33 Obstructive sleep apnea (adult) (pediatric); K21.9 Gastro-esophageal reflux disease without esophagitis; J45.909 Unspecified asthma, uncomplicated; F17.210 Nicotine dependence, cigarettes, uncomplicated; F17.290 Nicotine dependence, other tobacco product, uncomplicated
CPT/HCPCS: 36415; 80053; 80307; 81001; 82077; 83690; 84443; 85025; 96360; 99284; J7120

== ENCOUNTER 2024-06-20 20:51 | Emergency (ER) | payer OTHER, SELFPAY ==
--- NOTE | ~2024-06-20 | XR_ITS ---
CHEST RADIOGRAPH, PA AND LATERAL CLINICAL HISTORY: chest pain, SOB . COMPARISON: 09/10/2023 TECHNIQUE: PA and lateral views of the chest. FINDINGS The cardiomediastinal silhouette is unremarkable. The lungs are clear. Visualized osseous structures and soft tissues are unremarkable. IMPRESSION: No focal infiltrate or effusion. Reviewed, dictated and finalized at location A.
--- NOTE | ~2024-06-20 | CT_ITS ---
History: Headache PROCEDURE: CT head without contrast. COMPARISON: None TECHNIQUE: Axial imaging of the head performed from the skull base to the vertex without IV contrast. Sagittal a nd coronal reformations obtained. DLP: 605 mGy-cm FINDINGS: The ventricles are normal in size, shape and position. There is no mass, mass effect or midline shift. There is no abnormal extra-axial fluid collection or intracranial hemorrhage. Visualized paranasal sinuses are clear. The mastoid air cells are well aerated. No acute displaced fractures within the overlying cranium. Impression: No acute intracranial hemorrhage or suspicious mass effect. Reviewed, dictated and finalized at location A. Impression: No acute intracranial hemorrhage or suspicious mass effect.
--- NOTE | 2024-06-20 20:53 | ECG_ITS ---
Test Date: 2024-06-20 20:59:49 Measurements Intervals [place] Rate: 92 P: 66 W[place]: 127 QRS: 62 QRSD: 83 T: 71 QT: 350 QTc: 435 Interpretive Statements SINUS RHYTHM POSSIBLE RIGHT VENTRICULAR CONDUCTION DELAY [RSR (QR) IN V1/V2] SEPTAL MYOCARDIAL INFARCTION , PROBABLY OLD [40+ ms Q WAVE IN V1/V2] Compared to ECG 03/25/2024 19:58:40 NO SIGNIFICANT CHANGES Electronically Signed On 06-21-2024 17:31:49 CDT by Billy Hewitt M.D.
--- OUTSIDE RECORDS SUMMARY | 2024-06-20 20:55 | XMS_ITS | Clinical Summary ---
Author Organization [facility] Address [address] [place] [address] Care Team Providers Care Trouble Locater Name Role Phone Adrian Bryant MD Primary Care Provider Source Comments [facility],non-[facility] Affiliates and Associated Physician Practices is amultiple site organization consisting of ambulatory clinics and hospital sitesin [place] and [place]. This disclosure is being madepursuant to the Care Everywhere program and may not contain all information available regarding this patient. Last updated 17.[facility] Allergies Active Allergy Reactions Criticality Noted Date [...] to complete this topic MENINGOCOCCAL (Group B) VACC INE SHARED DECISION-MAKING Aged Out No longer eligibl e based on patient's age to complete this topic MENINGOCOCCAL GROUPS A/C/Y/W VACCINE Aged Out No longer eligible b ased on patient's age to complete this topic Care Teams Trouble Locater Relationship Specialty Start Date End Date Adrian Bryant MD [address] [place] [id number] PCP - General 11/25/20
--- OUTSIDE RECORDS SUMMARY | 2024-06-20 20:55 | XMS_ITS | CONTINUITY OF CARE DOCUMENT ---
Author Name salima, salima Address Unknown Organization [facility] Address [address] [place] [address] Phone [phone] Care Team Providers Care Stitcher Set Up Operator Automatic Name Role Phone Sisi BALTAZAR, Amor Mahoney Unavailable [phone] YOANDY BALTAZAR, GERMAIN Champagne Unavailable VINOD BALTAZAR, [...] In-person encounter Office Visit Amor Laird MD [facility] Cardiology examination - In-person encounter Office Visit Amor Laird MD [facility] - In-person encounter Office Visit Amor Laird MD [facility] - In-person encounter Office Visit Amor Laird MD [facility] Cardiology examination - In-person encounter Office Visit Benoit Cates MD [facility] - In-person encounter Office Visit Amor Laird MD [facility] - In-person encounter Office Visit Amor Laird MD [facility] Tobacco use - In-person encounter Office Visit Amor Laird MD [facility] CHEST PAIN - In-person encounter Office Visit Amor Laird MD [facility] Office CHEST PAINTobacco useAbnormal nuclear stress test - NL cardiac CT 09/2018 calcium score 0Palpitations - In-person encounter Office Visit Amor Laird MD [facility] Abnormal nuclear stress test - NL cardia c CT 09/2018 calcium score 0 - In-person encounter Office Visit Amor Laird MD [facility] HypercholesterolemiaCHEST PAIN-TYPE TO B E DETERMINEDSHORTNESS OF BREATHPALPITATIONSTobacco useBipolar disorderFamily History Premature CAD - In-person encounter Office Visit Laurence Hannon MD [facility] CHEST PAIN - In-person encounter Office Visit Laurence Hannon MD [facility] - In-person encounter Office Visit Laurence Hannon MD [facility] ANXIETY DISORDERDEPRESSIONHypercholesterolemia VITAL SIGNS Date Observation Value Provider Body Mass Index (Ratio) 23.26 kg/m2 Amor Laird MD oxygen saturation, oximetry 99 % Ariel Alvarenga blood pressure, cuff size regular Juan Luis wilson Alvarenga blood pressure, diastolic 87 mm[Hg] Juan Luis lemusn Alvarenga blood pressure, systolic 106 mm[Hg] Dali malin Alvarenga pulse rate 90 /min [facility] Al[facility] weight E&M 127.2 [lb_av] Juan Luisaron Alvarenga height E&M 62 [in_i] [facility] Body Mass Index (Ratio) 23.59 kg/m2 [...] blood pressure, diastolic 84 mm[Hg] Mi gurwinder Fanshawe blood pressure, systolic 122 mm[Hg] Manuel tonja Fanshawe oxygen saturation, oximetry 98 % Cortney Wynn respiratory rate E&M 16 /min Cece Wynn pulse rate 75 /min Cortney bray weight E&M 125 [lb_av] Cortney bray height E&M 62 [in_i] Cortney bray Body Mass Index (Ratio) 22.86 kg/m2 Juan hoffman Rafael pulse rate 90 /min Gabino [facility] erg blood pressure, diastolic 86 mm[Hg] Al duglas Rafael blood pressure, systolic 124 mm[Hg] Sridevi dao Rafael weight E&M 125 [lb_av] Gabino [facility] erg height E&M 62 [in_i] [facility] erg Body Mass Index (Ratio) 25.42 kg/m2 Juan dalton Rafael blood pressure, diastolic 88 mm[Hg] Ch astity Vik blood pressure, systolic 103 mm[Hg] Randa stity Vik oxygen saturation, oximetry 98 % [facility] Vik pulse rate 98 /min [facility] Vik respiratory rate E&M 18 /min Chastit y Vik weight E&M 139 [lb_av] [facility] E&M 62 [in_i] [facility] Body [facility] Index (Ratio) 24.69 kg/m2 Juan [facility] pulse rate 96 /min Gabino [facility] FolderBoy blood pressure, diastolic 78 mm[Hg] [facility] blood pressure, systolic 116 mm[Hg] [facility] weight E&M 135 [lb_av] Gabino [facility] FolderBoy height E&M 62 [in_i] [facility] erg Body Mass Index (Ratio) 25.05 kg/m2 Juan hoffman Rafael blood pressure, cuff size regular Cy maria Goyal blood pressure, diastolic 70 mm[Hg] Cy juan carlosa [place] blood pressure, systolic 118 mm[Hg] Lorene alhaji Goyal oxygen saturation, oximetry 98 % Lidia Goyal respiratory rate E&M 16 /min Liida Goyal pulse rate 90 /min Lidia amaral weight E&M 137 [lb_av] Lidia amaral height E&M 62 [in_i] Lidia amaral blood pressure, diastolic, left arm 78 mm [Hg] [facility] blood pressure, systolic, left arm 116 mm [Hg] [facility] blood pressure, diastolic, right arm 70 m m[Hg] [facility] blood pressure, systolic, right arm 116 m m[Hg] [facility] blood pressure, resting No [facility] Body Mass Index (Ratio) 24.69 kg/m2 [facility] blood pressure, cuff size regular Cy maria [...] Interpretation Location LDL cholesterol, serum 130 mg/dL [facility] LDL cholesterol, serum 174 mg/dL [facility] alanine aminotransferase (SGPT), serum 17 1/L [employer] [...] [facility] <200 High platelet count 254 10*3/uL [facility] Montes hematocrit, blood 40.6 % [facility] international normalized ratio (INR) 1.0 [facility] platelet count 230 10*3/uL Patricehon[facility] centerobdulio Montes hematocrit, blood 39.9 % Kathia Montes LDL cholesterol, serum 140 mg/dL [facility] cholesterol, serum 206 mg/dL Kathia Montes alanine [...] ORAL TABLET completed one daily - Gabino [facility] SYMBICORT 160-4.5 MCG/ACT INHALATION AEROSOL completed Two puffs twice a day - Gabino [facility] NORTRIPTYLINE HCL 25 MG ORAL CAPSULE completed One capsule daily - Gabino [facility] NIASPAN 1000 MG ORAL TABLET EXTENDED RELEASE completed 2 tablets daily - Gabino [facility] CRESTOR 40 MG ORAL TABLET completed ONE TAB. DAILY - Gabino [facility] CYCLOBENZAPRINE HCL 10 MG ORAL TABLET completed One tablet at bedtime as needed - Gabino [facility] PREMARIN TABLET completed Take 1 tab twice a week - Gabino [facility] NAPROXEN 500 MG ORAL TABLET completed Take 1 tab twice daily as needed - Gabino [facility] EVENING PRIMROSE OIL 1000 MG ORAL CAPSULE completed Take 1 tab daily in evening time - [facility] VITAMIN E 400 UNIT ORAL TABLET completed Take 1 tab twice daily - [facility] VITAMIN D3 10544 UNIT ORAL TABLET completed TAke 1 tab [...] MD smoking history, tot al pack/day 1 Amro Laird MD cigarette use yes Amor Laird [...] smoking history, tot al pack/day 1 Cortney Fanshawe cigarette use yes Cortney Doty carmine smoking status Current every day smoker Denzel srivastava Wynn social history reviewed E&M revi ewed - no changes required [facility] social history E&M Smoking Histo ry: P karmen currently smokes every day. P karmen has been counseled to quit. [facility] smoking/tobacco cess ation, patient education and counseling yes [facility] physical exercise, frequency, days per week no [facility] caffeine use, averag e drinks per day 1+ [facility] smoking, year quit 2019 [facility] number of years as a smoker 10+ [facility] smoking history, tot al pack/day 1 [facility] cigarette use yes [facility] smoking status Current every day smoker A wes [facility] social history reviewed E&M revi ewed - no changes required [facility] physical exercise, frequency, days per week no [...] P karmen is a former smoker. Gabino [facility] social history reviewed E&M revi ewed - no changes required [facility] smoking, year quit 2018 [facility] physical exercise, frequency, days per week no [facility] caffeine use, averag e drinks per day 1+ [facility] number of years as a smoker 10+ [facility] smoking history, tot al pack/day 1 [facility] cigarette use yes Gabino [facility] smoking status Former smoker Gabino [facility] alcohol use no Amor Laird MD social [...] karmen has been counseled to quit. Gabino [facility] social history reviewed E&M revi ewed - [...] physical exercise, frequency, days per week no [facility] caffeine use, averag e drinks per day yes [facility] alcohol use, average drinks per day social basis only [facility] number of years as a smoker 10 years or m ore [facility] smoking status Smoker [facility] caffeine use, averag e [...] RN FAMILY HISTORY Family Member Condition Mother [place] female <65 Maternal Grandmother Family History of C oronary Artery Disease: Maternal Grandfather Family History of C oronary Artery Disease: Uncle Family History of Co ronary Artery Disease: Aunt Family History of Co ronary Artery Disease: Mother Family History Coron narayan Heart Disease female < 65: INSURANCE PROVIDERS Payer name Policy type / Coverage type Ca red democrat ID CallMD Other [id number] ADVANCE DIRECTIVES Name Date DISCUSSED - NO DECISION MADE TREATMENT PLAN Date Name Performer [id number],B, No CP or SOB Her updated medication list for this problem includes: Metoprolol Tartrate 25 Mg Tablet (Metoprolol tartrate) ..... 1/2 tablet twice a day Juanpablo Sofie [id number],B,L DL 96 on Praluent. will continue current meds. Cannot tolerate statins. Her updated medication list for this problem includes: Praluent Pen 150 Mg/ml Pen Injector (Alirocumab) ..... Inject 1 pen under the skin every 2 weeks Juanpablo Carrizales [id number],S,I ntolerant of statins. F balwinder on Zetia. R emains very high (LDL 169). W ill send script for Repatha. Benoit Cates MD [id number],S, Benoit mesa MD [id number],S, Benoit mesa MD [id number],S,I ntolerant of statins. F balwinder on Zetia. R emains very high (LDL 169). Benoit Cates MD [id number],S,I nappropriate sinus tach. T ry low dose BB. Benoit Cates MD [id number],S, P t quit smoking in 03/2019. Amor Laird MD [id number],C, LDL is 180 on Zetia. She cannot [...] tablet once a day Amor Laird MD [id number],C,T he pt continues to have episodes of tachycardia with mild exertion. We discussed trying low dose Metoprolol she prefers to hold off at this time. L Amor Laird MD [id number],C,T he pt continues to have episodes of [...] nappropriate sinus tach. [facility]: H er updated medication list for [...] She had a recent CP admission and OK was ruled out. Stress test in the summer was normal. We discussed ILR and she will consider it further after GI workup is complete. She will contact us after her GI workup. Gabino [facility] TeleHealth:Continues to have palpitations. She had a recent CP admission and OK was ruled out. Stress test in the summer was normal. We discussed ILR and she will consider it further after GI workup is complete. Gabino [facility] Cardiology:She has b een on Zetia for 2 months and we will obtain lipid panel and see if she needs PCSK9 inhibitors. CHOL: 245 (06/12/2019) HDL: 57 (06/12/2019) LDL: 174 (06/12/2019) TRI (06/12/2019) Her updated medication list for this problem includes: Zetia 10 Mg Oral Tablet (Ezetimibe) ..... One daily Niaspan 1000 Mg Oral Tablet Extended Release (Niacin (antihyperlipidemic)) ..... 2 tablets daily [facility] Card[facility]:Event mon itor showed no evidence of arrhythmia. [facility] Cardiology:Complains of more episodes of left arm and chest discomfort. Had an abnormal stress test last year but CT calcium score was 0. She is reluctant to have cardiac cath and prefers to schedule a stress test. [facility] Cardiology:Complains of more episodes of left arm and chest discomfort. Had an abnormal stress test last year but CT calcium score was 0. She is reluctant to have cardiac cath and prefers to schedule a stress test. [facility] TeleHealth:She was s tarted on Crestor in [...] 57 (06/12/2019) LDL: 174 (06/12/2019) TRI (06/12/2019) [facility] TeleHealth:Pt quit smoking in . [facility] TeleHealth:Had an ep isode of palpitations and had to go to the ER. Will obtain telesentry. [facility] follow up :Advised ag clairen to quit. [facility] follow up :CardioIQ lipid panel results are pending. [facility] follow up :No recent chest pain. Myoview scan showed mild septal wall ischemia however CT coronary calcium score was 0. Will monitor her symptoms. [facility] New Patie nt :Orders: C ardioIQ Advanced Lipid Panel with Inflammation ([facility]) (87430) [facility] New Patie nt :Orders: E KG (CPT-12112) C omplete Echo (CPT-87245) S tress Exercise Cardiolite (CPT-11974) C T, Coronary Calcium Score (CPT-23444) [facility] New Patie nt :Pt was advised to quit. Tried Chantix in the past. Gabino [facility] follow up Laurence Hannon MD follow up Laurence Hannon MD follow up: O rders: E KG (CPT-78623) Laurence Hannon MD follow up: T he following medications were removed from the medication list: Pravastatin Sodium 20 Mg Tabs (Pravastatin sodium) ..... One tab. daily BP today: 126/70 Prior BP: 116/81 (11/06/2011) C HOL: 206 (10/03/2011) LDL: 140 (10/03/2011) Laurence Hannon MD follow up: O rders: E KG (CPT-64147) BP today: 126/70 Prior BP: 116/81 (11/06/2011) [...] Procedure Name Provider Procedure Notes S tatus CT- Coronary CA score Amor Laird MD [...]
--- OUTSIDE RECORDS SUMMARY | 2024-06-20 20:55 | XMS_ITS | Clinical Summary ---
Author Organization [facility] Address [address] [place] [address] Phone Care Team Providers Care Manager Metal Name Role Phone Unavailable Primary Care Provider [...] Encounters Date Type Department Care Team Description 06/18/2024 External Device Data STL ABSTRACTION Provider, Abstract 06/11/2024 External Device Data STL ABSTRACTION Provider, Abstract 06/10/2024 External Device Data STL ABSTRACTION Provider, Abstract 06/07/2024 External Device Data STL ABSTRACTION Provider, Abstract 06/06/2024 External Device Data STL ABSTRACTION Provider, Abstract 06/04/2024 External Device Data STL ABSTRACTION Provider, Abstract 05/21/2024 External Device Data STL ABSTRACTION Provider, Abstract 05/13/2024 External Device Data STL ABSTRACTION Provider, Abstract 04/24/2024 External Device Data STL ABSTRACTION Provider, [...] 76 06/11/2023 2:08 PM CDT Temperature 36.7 C (98 F) 06/11/2023 2:08 PM CDT Respiratory Rate 14 06/11/2023 2:08 PM CDT Oxygen Saturation 98% 06/11/2023 2:08 PM CDT Inhaled Oxygen Concentration - - Weight 61.1 kg (134 lb 12.8 oz) 06/11/2023 2:08 PM CDT Height 157.5 cm (5' 2 ) 03/20/2023 2:43 PM FIELD LIABILITY GENERALIST Body Mass Index 24.66 03/20/2023 2:43 PM FIELD LIABILITY GENERALIST Plan of Treatment Health Maintenance Due Date Last Done Comments PNEUMOCOCCAL VACCINE 0-49 YE ARS (1 of 2 - PCV) 1984 HEPATITIS B VACCINES (1 of 3 - 19+ 3-dose series) 1997 PAP SMEAR 2008 INFLUENZA VACCINE (#1) 2023 COLORECTAL SCREENING [...] MAMMO BILAT DIAGNOSTIC Routine 04/10/2023 2:28 PM FIELD LIABILITY GENERALIST from Last 3 Months or Most Recently Relevant to Health Maintenance Results * MAMMO BILAT DIAGNOSTIC (04/10/2023 2:28 PM FIELD LIABILITY GENERALIST) Anatomical Region Laterality Modality Breast Bilateral Mammography David Baptiste MD MAMMO ORDERABLES Final Result from Last 3 Months or Most Recently Relevant to Health Maintenance Insurance [employer] OPEN ACCESS [employer] OPEN ACCESS
--- OUTSIDE RECORDS SUMMARY | 2024-06-20 20:55 | XMS_ITS | Clinical Summary ---
Author Organization [address] Address [address] [place] [id number] Care Team Providers Care Clinical Statistics Manager Name Role Phone Dc Brooks MD Unavailable Caity Sanabria NP Unavailable [phone] Pamela Parekh MD Primary Care Provider [phone] Allergies Active Allergy Reactions Criticality Noted Date [...] 05/18/2021 Assessment & Plan (05/18/2021 3:13 PM CLERICAL AND OFFICE SUPPORT WORKERS): I did request the chest x-ray from [facility] in [place]. I have also ordered another chest x-ray [...] 11/05/2019 Assessment & Plan (05/18/2021 3:11 PM CLERICAL AND OFFICE SUPPORT WORKERS): The patient was once again encouraged to [...] complication Assessment & Plan (05/18/2021 3:11 PM CLERICAL AND OFFICE SUPPORT WORKERS): The patient was given sample of Breztri [...] Trelegy. Assessment & Plan (06/04/2019 10:51 AM CLERICAL AND OFFICE SUPPORT WORKERS): The patient did have significant improvement following bronchodilators. I will give her a trial of Symbicort 160/4.5 and albuterol MDI to see if this improves her symptoms. Shortness of breath 05/14/2019 Assessment & Plan (05/14/2019 8:43 AM CLERICAL AND OFFICE SUPPORT WORKERS): The patient quit smoking 2 months ago and smoked up to 1 pack of cigarettes a day for 27 years. With her dyspnea on exertion, I will check full PFTs and a 6 minute walk test. Other chest pain 05/14/2019 Assessment & Plan (06/04/2019 10:52 AM CLERICAL AND OFFICE SUPPORT WORKERS): I will hold off on a CT angiogram of the chest at this time since she felt like the chest pain improved after the nebulizer treatment. Assessment & Plan (05/14/2019 8:42 AM CLERICAL AND OFFICE SUPPORT WORKERS): The patient has had a previous cardiac [...] Type Department Care Team Description 04/16/2024 Telephone [facility] [address] [place] [address] Lashay Carney RN from Last 3 Months Immunizations Immunization Administration Dates Next Due Tdap 07/24/2016 Surgical [...] on file Legal Sex Female 9:08 PM CLERICAL AND OFFICE SUPPORT WORKERS Gender Identity Female 07/01/2021 12:01 PM CDT Sexual Orientation Straight 07/01/2021 12 :01 PM CDT Obstetrics History Last Filed Vital Signs Vital Sign Reading Time Taken Comments Blood Pressure 112/79 09/04/2023 3:17 PM CDT Pulse 71 09/04/2023 3:17 PM CDT Temperature 36.5 C (97.7 F) 11/05/2019 10:41 AM CDT Respiratory Rate 18 05/18/2021 2:44 PM CLERICAL AND OFFICE SUPPORT WORKERS Oxygen Saturation 98% 05/18/2021 2:44 PM CLERICAL AND OFFICE SUPPORT WORKERS Inhaled Oxygen Concentration - - Weight 56.7 kg (125 lb) 02/14/2024 12:21 PM CLERICAL AND OFFICE SUPPORT WORKERS Height 157.5 cm (5' 2 ) 02/14/2024 12:21 PM CLERICAL AND OFFICE SUPPORT WORKERS Body Mass Index 22.86 02/14/2024 12:21 PM CLERICAL AND OFFICE SUPPORT WORKERS Plan of Treatment Health Maintenance Due Date Last Done Comments Colon Cancer Screening-Colonoscopy 1978 Depression Screening 1978 Hepatitis C Screening 1978 Hepatitis B Screening 1996 Regular Well Visit/Exam 18-64 1996 Pneumococcal vaccine <65 (1 of 2 - PCV) 1997 Zoster Vaccine (1 of 2) 1997 Influenza Vaccine (#1) 2023 Breast Cancer Screening-Mammogram 04/11/2024 04/11/2023, 12/21/2021, 07/30/2020 DTaP/Tdap/Td Vaccine (2 - Td or Tdap) 07/24/2026 07/24/2016 HPV Vaccines Aged Out No longer eligi ble based on patient's age to complete this topic Insurance [employer] OPEN ACCESS [employer] OPEN ACCESS [employer] OPEN ACCESS Care Teams Clinical Statistics Manager Relationship Specialty Start Date End Date Pamela Parekh MD PCP - General Family Medicine 09/04/23 Dc Brooks MD Obstetrics and Gynecology 05/14/19 Caity Sanabria NP Nurse Practitioner Nurse Practitioner 01/12/22
--- OUTSIDE RECORDS SUMMARY | 2024-06-20 20:55 | XMS_ITS | Data Portability ---
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 Referral physical therapist referral - please contact patient to schedule 2024 025 [facility], [address], [place], [address], 04/03/2024 10:40:31 physical therapist referral - Please contact patient to schedule 2023 024 [facility], [address] [place], [address], 04/09/2023 14:05:22 Procedures injection /aspirati on joint/bur sa (PROC) 2023 024 [email or web address] In-Office Order, Internal Use Only DO Not Attach Compendium DO Not Attach Compendium, Do Not Delete/merge, [id number] 09/07/2023 15:00:53 injection /aspirati on joint/bur sa (PROC) 2023 024 [email or web address] In-Office Order, Internal Use Only DO Not Attach Compendium DO Not Attach Compendium, Do Not Delete/merge, [id number] 09/07/2023 14:54:42 injection /aspirati on joint/bur sa (PROC) - in office procedure , administe red by provider 2023 024 [email or web address] In-Office Order, Internal Use Only DO Not Attach Compendium DO Not Attach Compendium, Do Not Delete/merge, [id number] 06/07/2023 14:11:42 injection /aspirati on joint/bur sa (PROC) 2023 024 [email or web address] In-Office Order, Internal Use Only DO Not Attach Compendium DO Not Attach Compendium, Do Not Delete/merge, [id number] 06/07/2023 16:28:29 injection /aspirati on joint/bur sa (PROC) 2023 024 [email or web address] In-Office Order, Internal Use Only DO Not Attach Compendium DO Not Attach Compendium, Do Not Delete/merge, [id number] 04/09/2023 12:39:23 Surgeries None recorded. Imaging MRI, shoulder, w/o contrast - PLEASE CONTACT PATIENT TO SCHEDULE 2023 024 [facility], [address] [place] [address] , [place], [address], 10/02/2023 18:40:05 XR, lumbar spine 2023 024 [email or web address] [facility] [place], [address], [place], [address], 06/07/2023 16:28:29 XR, shoulder, 2 or more view 2023 024 [email or web address] [facility] [place], [address], [place], [address], 04/09/2023 12:48:55 XR, hand 2022 023 [email or web address] [facility] [place], [address], [place], [address], 08/10/2022 10:54:47 Medication Orders prednison e 10 mg tablets in a dose pack 2024 025 [email or web address] [facility] #96148, [address], [place], [id number], 04/03/2024 10:26:01 bupivacai ne HCl 0.5 % (5 mg/mL) injection solution [email or web address] [facility]47722, [address], [place], [id number], 09/07/2023 15:43:21 Kenalog 10 mg/mL suspensio n for injection [email or web address] [place] [address] [facility] #22260, [address], [place], [id number], 09/07/2023 15:43:21 bupivacai ne HCl 0.5 % (5 mg/mL) injection solution [email or web address] [place] [address] [facility] #79735, [address], [id number], 09/07/2023 15:43:21 Kenalog 10 mg/mL suspensio n for injection 2023 [email or web address] [facility] #02618, [address], [place], [place], [id number], 09/07/2023 15:43:21 Kenalog 10 mg/mL suspensio n for injection [address] [facility] #97814, [address], [place], [place], [id number], 09/07/2023 14:50:22 Marcaine 0.5 % (5 mg/mL) injection solution [address] [facility] #43215, [address], [place], [place], [id number], 09/07/2023 14:50:44 Kenalog 10 mg/mL suspensio n for injection [address] [facility] #80187, [address], [id number], 09/07/2023 14:50:22 Marcaine (PF) 0.5 % (5 mg/mL) injection solution [address] [facility] #09643, [address] , [place], [place], [id number], 09/07/2023 14:50:50 bupivacai ne HCl 0.5 % (5 mg/mL) injection solution [email or web address] [facility] #21959, [address], [place], [place], [id number], 09/07/2023 14:50:44 Kenalog 10 mg/mL suspensio n for injection [address] [facility] #29853, [address] , [place], [place], [id number], 09/07/2023 14:50:22 Patient TargetsNo targets recorded. Patient InstructionsNo instructions [...] 6.8 x10'3 /uL 4.2-[address] [facility] (Lab) [address] [place], [address], 11/01/2022 14:27:30 11/02/19 23 11/01/2022 CBC/C OMPLE TE BLD COUNT W/DIF F red blood cells 5.06 x10'6 /uL 3.80-[address] [facility] (Lab) [address] [place], [address], 11/01/2022 14:27:30 11/02/1911/01/2022 CBC/C OMPLE TE BLD COUNT W/DIF F hemoglobin 14.9 g/dL 12.0-[address] [facility] (Lab) [address] [place], [address], 11/01/2022 14:27:30 11/02/19 23 11/01/2022 CBC/C OMPLE TE BLD COUNT W/DIF F hematocrit 43.6 % 35.7-[address] [facility] (Lab) [address] [place], [address], 11/01/2022 14:27:30 11/02/19 23 11/01/2022 CBC/C OMPLE TE BLD COUNT W/DIF F mean red cell volume 86.2 fL 82.0-[address] [facility] (Lab) [address] [place], [address], 11/01/2022 14:27:30 11/02/19 23 11/01/2022 CBC/C OMPLE TE BLD COUNT W/DIF F mean red cell hemoglobin 29.4 pg 27.0-[address] [facility] (Lab) [address] [place], [address], 11/01/2022 14:27:30 11/02/19 23 11/01/2022 CBC/C OMPLE TE BLD COUNT W/DIF F mean RBC HGB concentratio n 34.2 g/dL 31.0-[address] [facility] (Lab) [address] [place], [address], 11/01/2022 14:27:30 11/02/19 23 11/01/2022 CBC/C OMPLE TE BLD COUNT W/DIF F red cell distribution width 11.9 % 11.8-[address] [facility] (Lab) [address] [place], [address], 11/01/2022 14:27:30 11/02/19 23 11/01/2022 CBC/C OMPLE TE BLD COUNT W/DIF F platelets 310 x10'3 /uL 150-[address] [facility] (Lab) [address] [place], [address], 11/01/2022 14:27:30 11/02/19 23 11/01/2022 CBC/C OMPLE TE BLD COUNT W/DIF F mean platelet volume 10.5 fL 9.0-[address] [facility] (Lab) [address] [place], [address], 11/01/2022 14:27:30 11/02/19 23 11/01/2022 CBC/C OMPLE TE BLD COUNT W/DIF F neutrophils 57.4 % 39.0-7 2.0 Not Available [facility] (Lab) [address] [place], [address], 11/01/2022 14:27:30 11/02/19 23 11/01/2022 CBC/C OMPLE TE BLD COUNT W/DIF F lymphocytes 32.2 % 16.0-4 7.0 Not Available [facility] (Lab) [address] [place], [address], 11/01/2022 14:27:30 11/02/19 23 11/01/2022 CBC/C OMPLE TE BLD COUNT W/DIF F monocytes 7.9 % 5.0-12 .0 Not Available [facility] (Lab) [address] [place], [address], 11/01/2022 14:27:30 11/02/19 23 11/01/2022 CBC/C OMPLE TE BLD COUNT W/DIF F eosinophils 0.9 % 1.0-7. [address] [facility] (Lab) [address] [place], [address], 11/01/2022 14:27:30 11/02/19 23 11/01/2022 CBC/C OMPLE TE BLD COUNT W/DIF F basophils 1.0 % 0.0-2. [address] [facility] (Lab) [address] [place], [address], 11/01/2022 14:27:30 11/02/19 23 11/01/2022 CBC/C OMPLE TE BLD COUNT W/DIF F immature granulocytes 0.6 % 0.00-0 .[address] [facility] (Lab) [address] [place], [address], 11/01/2022 14:27:30 11/02/19 23 11/01/2022 CBC/C OMPLE TE BLD COUNT W/DIF F neutrophils, absolute count 3.92 x10'3 /uL 1.5-8. [address] [facility] (Lab) [address] [place], [address], 11/01/2022 14:27:30 11/02/19 23 11/01/2022 CBC/C OMPLE TE BLD COUNT W/DIF F lymphocytes, absolute count 2.20 x10'3 /uL 1.07-[address] [facility] (Lab) [address] [place], [address], 11/01/2022 14:27:30 11/02/19 23 11/01/2022 CBC/C OMPLE TE BLD COUNT W/DIF F monocytes, absolute count 0.54 x10'3 /uL 0.29-[address] [facility] (Lab) [address] [place], [address], 11/01/2022 14:27:30 11/02/19 23 11/01/2022 CBC/C OMPLE TE BLD COUNT W/DIF F eosinophils, absolute count 0.06 x10'3 /uL 0.02-[address] [facility] (Lab) [address] [place], [address], 11/01/2022 14:27:30 11/02/19 23 11/01/2022 CBC/C OMPLE TE BLD COUNT W/DIF F basophils, absolute count 0.07 x10'3 /uL 0.01-[address] [facility] (Lab) [address] [place], [address], 11/01/2022 14:27:30 11/02/19 23 11/01/2022 CBC/C OMPLE TE BLD COUNT W/DIF F immature granulocytes ,absolute 0.04 x10'3 /uL 0.00-[address] [facility] (Lab) [address] [place], [address], 11/01/2022 14:27:30 11/02/19 23 11/01/2022 CBC/C OMPLE TE BLD COUNT W/DIF F nucleated red blood cells 0.0 % -0 Not Available [facility] (Lab) [address] [place], [address], 11/01/2022 14:27:30 11/02/19 23 11/01/2022 CBC/C OMPLE TE BLD COUNT W/DIF F NRBC# 0.00 x10'3 /uL Not Available [facility] (Lab) [address] [place], [address], 11/01/2022 14:27:30 11/02/19 23 11/01/2022 IRON/ TIBC PANEL total iron binding capacity 352 mcg/d L 265-[address] [facility] (Lab) [address] [place], [address], 11/01/2022 14:50:22 11/02/19 23 11/01/2022 IRON/ TIBC PANEL % transferrin saturation 34 % 20-55 Not Available [facility] (Lab) [address] [place], [address], 11/01/2022 14:50:22 11/02/19 23 11/01/2022 IRON/ TIBC PANEL unsaturated iron bind capacity 231 mcg/d L 126-[address] [facility] (Lab) [address] [place], [address], 11/01/2022 14:50:22 11/02/19 23 11/01/2022 IRON/ TIBC PANEL iron 121 mcg/d L 42-[address] [facility] (Lab) [address] [place], [address], 11/01/2022 14:50:22 11/02/19 23 11/01/2022 COMPR EHENS ESTUARDO METAB OLIC PANEL sodium 136 mmol/ L 137-14 5 low Not Available [facility] (Lab) [address] [place], [address], 11/01/2022 14:49:29 11/02/19 23 11/01/2022 COMPR EHENS ESTUARDO METAB OLIC PANEL potassium 4.5 mmol/ L 3.5-[address]. [address] [facility] (Lab) [address] [place], [address], 11/01/2022 14:49:29 11/02/19 23 11/01/2022 COMPR EHENS ESTUARDO METAB OLIC PANEL chloride 103 mmol/ L 98-[address] [facility] (Lab) [address] [place], [address], 11/01/2022 14:49:29 11/02/19 23 11/01/2022 COMPR EHENS ESTUARDO METAB OLIC PANEL carbon dioxide 26 mmol/ L 22-[address] [facility] (Lab) [address] [place], [address], 11/01/2022 14:49:29 11/02/19 23 11/01/2022 COMPR EHENS ESTUARDO METAB OLIC PANEL anion gap 11.5 mmol/ L 14-[address] [facility] (Lab) [address] [place], [address], 11/01/2022 14:49:29 11/02/19 23 11/01/2022 COMPR EHENS ESTUARDO METAB OLIC PANEL glucose 95 mg/dL 70-[address] [facility] (Lab) [address] [place], [address], 11/01/2022 14:49:29 11/02/19 23 11/01/2022 COMPR EHENS ESTUARDO METAB OLIC PANEL BUN 14 mg/dL 8-[address] [facility] (Lab) [address] [place], [address], 11/01/2022 14:49:29 11/02/19 23 11/01/2022 COMPR EHENS ESTUARDO METAB OLIC PANEL creatinine 0.89 mg/dL 0.66-[address] [facility] (Lab) [address] [place], [address], 11/01/2022 14:49:29 11/02/19 23 11/01/2022 COMPR EHENS ESTUARDO METAB OLIC PANEL GFR >60 Refer ence Range : [place] ge GFR Healt hy Adult : >60 [...] or ethni c subgr oups, such as Hismi nics. Outsi de the valid ated teresa [...] s/kdo qi/gf r_cal culat or Not Available [facility] (Lab) [address] [place], [address], 11/01/2022 14:49:29 11/02/1911/01/2022 COMPR EHENS ESTUARDO METAB OLIC PANEL alkaline phosphatase 59 U/L 38-126 Not Available [facility] (Lab) [address] [place], [address], 11/01/2022 14:49:29 11/02/19 23 11/01/2022 COMPR EHENS ESTUARDO METAB OLIC PANEL alanine aminotransfe rase 24 U/L 0-35 Not Available [facility] (Lab) [address] [place], [address], 11/01/2022 14:49:29 11/02/19 23 11/01/2022 COMPR EHENS ESTUARDO METAB OLIC PANEL aspartate aminotransfe rase 27 U/L 15-37 Not Available [facility] (Lab) [address] [place], [address], 11/01/2022 14:49:29 11/02/19 23 11/01/2022 COMPR EHENS ESTUARDO METAB OLIC PANEL bilirubin, total 0.50 mg/dL 0.20-[address] [facility] (Lab) [address] [place], [address], 11/01/2022 14:49:29 11/02/19 23 11/01/2022 COMPR EHENS ESTUARDO METAB OLIC PANEL calcium 9.4 mg/dL 8.4-[address] [facility] (Lab) [address] [place], [address], 11/01/2022 14:49:29 11/02/19 23 11/01/2022 COMPR EHENS ESTUARDO METAB OLIC PANEL total protein 7.1 g/dL 6.3-8. [address] [facility] (Lab) [address] [place], [address], 11/01/2022 14:49:29 11/02/19 23 11/01/2022 COMPR EHENS ESTUARDO METAB OLIC PANEL albumin 4.2 g/dL 3.4-5. [address] [facility] (Lab) [address] [place], [address], 11/01/2022 14:49:29 11/02/19 23 11/01/2022 COMPR EHENS ESTUARDO METAB OLIC PANEL globulin 2.9 g/dL 2.6-4. [address] [facility] (Lab) [address] [place], [address], 11/01/2022 14:49:29 11/02/19 23 11/01/2022 COMPR EHENS ESTUARDO METAB OLIC PANEL A/G ratio 1.4 ratio 1.0-2. [address] [facility] (Lab) [address] [place], [address], 11/01/2022 14:49:29 11/02/19 23 11/01/2022 VITAM IN B12 (HARIS DONAVON ) vb12 754 pg/mL 239-[address] [facility] (Lab) [address] [place], [address], 11/01/2022 16:26:25 11/02/19 23 11/01/2022 FOLAT E, SERUM /PLAS MA folate 13.3 NG/mL 2.76-[address] [facility] (Lab) [address] [place], [address], 11/01/2022 16:26:27 11/02/19 23 11/01/2022 VITAM IN D 25-HY DROXY vd25oh 56.4 NG/mL 30-100 Vitam in D Statu s: Defic ient: <20 ng/mL Insuf ficie nt: 20-29 ng/mL Suffi cient : 30-10 0 ng/mL Not Available [facility] (Lab) [address] [place], [address], 11/01/2022 15:48:43 11/02/19 23 11/01/2022 T3 FREE free T3 3.2 pg/mL 2.77-[address] [facility] (Lab) [address] [place], [address], 11/01/2022 15:03:02 11/02/19 23 11/01/2022 T4 FREE free T4 0.92 NG/dL 0.78-[address] [facility] (Lab) [address] [place], [address], 11/01/2022 15:03:03 11/02/19 23 11/01/2022 TSH thyroid-stim ulating hormone 1.650 uIU/m L 0.465- 4.[address] [facility] (Lab) [address] [place], [address], 11/01/2022 15:10:34 11/02/19 23 11/01/2022 BLANE TIN ferritin 27 NG/mL 6.24-[address] [facility] (Lab) [address] [place], [address], 11/01/2022 15:11:10 08/11/19 23 XR, hand No observ ation record ed. [email or web address] [facility] [place] [address] [facility] [address], [place], [address], 08/10/2022 09:54:24 04/09/19 24 XR, shoul brenda, 2 or more view No observ ation record ed. [email or web address] [facility] [place] [address] [facility] [address], [place], [address], 04/09/2023 12:48:53 06/07/19 24 XR, lumba r spine No observ ation record ed. [email or web address] [facility] [place] [address] [facility] [address], [place], [address], 06/07/2023 14:11:44 10/02/19 24 MRI, shoul brenda, w/o contr ast [facility] [address] [address] Patien t Name: SAMANTHA RUCKER ion #: [id number] Sex: F : 1980 8 Dictat [...] frayin g in the distal Page 1 [facility] [address] [place] [address] Patien t Name: SAMANTHA RUCKER ion #: [id number] Sex: F : 1980 8 Dictat [...] at 2023 15:37: [address] [facility] (Imaging) [address] [place], [address], 10/03/2023 09:59:39 Result Notes None recorded. Problems Name Problem SNOMED Code Status Onset Date Resolution Date Notes Provider Name and Address Organization Details Recorded Time Hyperchole sterolemia 13736857 Active Not Available [employer] 3 00:48:03 Dry skin 06252526 Active Not Available [employer] 3 00:48:03 Asthma 869402056 Active Not Available [employer] 3 00:48:04 Abdominal pain 66533249 Active Not Available [employer] 3 00:48:04 Thyroid nodule 770979025 Active 2021 Not Available [facility] 3 00:48:04 Headache 74706407 Active Not Available [employer] 3 00:48:04 Hypoglycem ia 411904571 Active 2021 Not Available [facility] 3 00:48:04 Vitamin D deficiency 11904942 Active 2021 Not Available [facility] 3 00:48:04 Iron deficiency 11186779 Active 2021 Not Available [facility] 3 00:48:04 Depressive disorder 54472854 Active Not Available [facility] 3 00:48:04 Onychomyco sis 196894845 Active Not Available [facility] 3 00:48:04 Unintentio nal weight loss 154218131 Active Not Available [facility] 3 00:48:04 Gastritis 4521105 Active Not Available [facility] 3 00:48:04 Anxiety 47199384 Active Not Available [facility] 3 00:48:04 Inflammati on of sacroiliac joint 58547965 Active 2019 Not Available [facility] 3 00:48:04 Tinea pedis 2445541 Active 2021 Not Available [facility] 3 00:48:04 Diarrhea 84320900 Active Not Available [facility] 3 00:48:04 Vitamin B12 deficiency (non anemic) 47987364 Active 2021 Not Available [facility] 3 00:48:05 Sacroiliac joint pain 886314421 Active 2022 Padma Angulo IT QUALITY ASSURANCE ANALYST null, [place] [facility] 3 09:19:42 Low back pain 528376463 Active 2022 Padma Angulo IT QUALITY ASSURANCE ANALYST null, [place] [facility] 3 09:19:51 Multiple joint pain 44235524 Active 2022 Padma Angulo IT QUALITY ASSURANCE ANALYST null, [place] [facility] 3 09:20:00 Pain of left hand 9812694962464 03 Active 2022 Padma Angulo IT QUALITY ASSURANCE ANALYST null, [place] [facility] 3 09:20:42 Sprain of interphala ngeal joint of finger 12166917 Active 2022 NELI Morse [address] [facility] [address], [place], [address] , [place] [facility] 3 09:55:28 Pain of right shoulder joint 5010555708024 9100 Active 2023 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null, [place] [facility] 4 11:57:58 Tendinitis of right rotator cuff 3042976970939 9104 Active 2023 NELI Morse [address], [place], [address] , [place] [facility] 4 12:49:07 Impingemen t syndrome of right shoulder region 0027720616671 02 Active 2024 NELI Morse [address], [place], [address] , [place] [facility] 5 10:25:02 Notes:herpes Problem [...] 08/10/2022 XR, hand completed [email or web address] [facility] [place] [address] [facility] [address], [place], [address], 08/10/2022 09:54:24 04/09/2023 XR, shoulder, 2 or more view completed [email or web address] [facility] [place] [address] [facility] [address], [place], [address], 04/09/2023 12:48:53 06/07/2023 XR, lumbar spine completed [email or web address] [facility] [place] [address] [facility] [address], [place], [address], 06/07/2023 14:11:44 10/02/2023 MRI, shoulder, w/o contrast completed [address] (Imaging) [address] [place], [address], 10/03/2023 09:59:39 Procedure Notes None recorded. Medical Equipment None Reported. Allergies Allergen ID Allergen Name Allergen Category Reaction Reaction Severity Criticality Documentation Date Start Date Code Code System Note Provider Name and Address Organization Details Recorded Time 460 pravastat in medicatio n Not available Not available Not available 05/31/2022 16345 RxNorm Not Available [facility] 3 00:52:27 461 Dilaudid medicatio n Not available Not available Not available 05/31/2022 27901 3 RxNorm Not Available [facility] 3 00:52:27 462 codeine medicatio n Not available Not available Not available 05/31/2022 2670 RxNorm Not Available [facility] 3 00:52:27 Medications Name Sig Start Date [...] % (37.5 mg/5 gram) vaginal gel INSERT 1 APPLICATO RFUL VAGINALLY EVERY NIGHT AT BEDTIME FOR 5 DAYS active Not Available Not [...] completed Not Available Not Available Not Available estradiol 0.1 mg/24 hr semiweekly transdermal patch APPLY 1 PATCH TOPICALLY TO THE SKIN 2 TIMES A WEEK active Not Available Not Available No t Available penicillin V potassium 500 mg tablet [...] 1 TIME 30 MINUTES BEFORE FIRST MEAL active Not Available Not Available No t Available prednisone 10 mg tablets in a [...] 40 mg by injection route. [address] [facility]: 0003- 0494- 20 Not Available Not Available [...] x 5/16 USE ONCE A WEEK WITH -12 08/10 [...] completed Not Available Not Available Not Available progesteron e micronized 100 mg capsule TAKE 1 CAPSULE BY MOUTH DAILY AT BEDTIME active Not Available Not Available No t Available amoxicillin 875 mg-potassiu m clavulanate 125 mg tablet TAKE 1 TABLET BY MOUTH TWICE DAILY 08/10 completed Not Available Not Available Not Available hydroxyzine pamoate 25 mg capsule TAKE 1 CAPSULE BY MOUTH TWICE DAILY NEEDED active Not Available Not Available No t Available neomycin-po lymyxin-hyd rocort 3.5 mg-10,000 unit/mL-1 [...] TAKE 1/2 TABLET BY MOUTH TWICE DAILY 08/10 completed Not Available Not Available Not Available nitrofurant oin monohydrate /macrocryst als 100 mg capsule TAKE 1 CAPSULE BY MOUTH TWICE DAILY active Not Available Not Available No t Available duloxetine 30 mg capsule,del ayed release [...] administe red by the provider 06/[address] [facility]: 0409- [phone]- 17 Not Available Not Available Not Available lidocaine (PF) 5 mg/mL (0.5 %) injection solution Take 60 mg by injection route. 08/10 completed Not Available Not Available Not Available quetiapine 50 mg tablet TAKE 1 TABLET BY MOUTH EVERY DAY AT BEDTIME active Not Available Not Available No t Available Symbicort 160 mcg-4.5 mcg/actuati on HFA [...] Updated DateTime 08/10/2022 157.48 cm 23.8 kg/m2 89889.01 g 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[facility] [employer] 08/10/2022 09:13:48 Date Recorded Body height Body mass index (BMI) Body weight Provider Name and Address Organization Details Last Updated DateTime 04/09/2023 157.48 cm 24.7 kg/m2 70709.97 g 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[facility] [employer] 04/09/2023 11:57:33 Date Recorded Body height Body mass index (BMI) Body weight Provider Name and Address Organization Details Last Updated DateTime 06/07/2023 157.48 cm 25.6 kg/m2 45469.93 g 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[facility] [employer] 06/07/2023 13:28:18 Date Recorded Body height Body mass index (BMI) Body weight Provider Name and Address Organization Details Last Updated DateTime 09/07/2023 157.48 cm 23.8 kg/m2 67712.01 g Dasia Bhatt [facility] [employer] 09/07/2023 14:48:16 Date Recorded Body height Body mass index (BMI) Body weight Provider Name and Address Organization Details Last Updated DateTime 04/03/2024 157.48 cm 21.9 kg/m2 88367.08 g Padma Angulo IT QUALITY ASSURANCE ANALYST [facility] [employer] 04/03/2024 09:44:34 Social History Question Answer Notes LastModified by Organizat ion Details LastModified Time Tobacco Smoking Status Current Every Day Smoker Not Available [facility] 05/31/2022 00:42:34 What Is Your Level Of Alcohol Consumption? None Information not available 08/10/2022 What Is Your Level Of Caffeine Consumption? None [id number] Information not available 05/31/2022 In The 14 Days Before Symptom Onset, Have You Had Close Contact With A Laboratory-confirm ed COVID-19 While That Case Was Ill? No [id number] Information not available 05/31/2022 In The 14 Days Before Symptom Onset, Have You Had Close Contact With A Person Who Is Under Investigation For COVID-19 While That Person Was Ill? No [id number] Information not available 05/31/2022 What Type Of Diet Are You Following? 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 No [id number] Information not available 05/31/2022 What Is Your Relationship Status? [id number] Information not available 05/31/2022 How Much Tobacco Do You Smoke? 0.5 PPD Information not available 08/10/2022 Do You Use Any Illicit Or Recreational Drugs? No [id number] Information not available 05/31/2022 How Many Years Have You Smoked Tobacco? 20 [id number] Information not available 05/31/2022 Have You Recently Traveled Abroad? No [id number] Information not available 05/31/2022 Do You Have Any Dietary Restrictions? No [id number] Information not available 05/31/2022 Sex: Female Functional Status None recorded. Mental Status None recorded. Family History Relationship Description Onset Age of this Age Resolved Age Notes LastModified by Organization Details LastModified Time Mother Heart disease self [email or web address] Not available 2023 14:51:51 Mother Diabetes mellitus [id number] Not available 05/31/2022 00:43:51 Maternal Grandfather Acute stroke [id number].0 30 [id number] Not available 05/31/2022 00:43:51 Medical History Condition Response ARTHRITIS Y GI PROBLEMS Y ALLERGIES/HAYFEVER Y HEARTBURN / REFLUX Y HIGH CHOLESTEROL / HYPERLIPIDEMIA Y ANXIETY DISORDER Y GERD/NAUSEA Y ANEMIA/BLOOD DISORDER Y FIBROMYALGIA Y URINARY/BLADDER/KIDNEY PROBLEMS Y USE OF NSAIDS Y BACK / NECK PROBLEMS Y DEPRESSION (INCLUDING POST ) Y Gynecological HistoryNo gynecological history recorded. Obstetrics History GPAL:G 0 P 0 0 0 0 Past Encounters Encounter ID Performer Location Encounter Start Date Encounter Closed Date Diagnosis/Indication Diagnosis SNOMED-CT Code Diagnosis ICD10 Code Diagnosis Note [id number] [facility] [address] [place] [address] 06/01/2020 00:00:00 06/01/2020 15:52:37 [id number] [facility] [address] [place] [address] 08/03/2020 00:00:00 08/03/2020 15:55:30 [id number] [facility] [address] [place] [address] 11/15/2020 00:00:00 11/15/2020 11:27:46 [id number] [facility] [address] [place] [address] 01/13/2021 00:00:00 01/13/2021 11:40:53 [id number] [facility] [address] [place] [address] 06/01/2021 00:00:00 06/01/2021 09:58:34 [id number] [facility] [address] [place] [address] 06/27/2021 00:00:00 06/27/2021 17:14:27 [id number] [facility] [address] [place] [address] 08/25/2021 00:00:00 08/25/2021 18:48:59 [id number] [facility] [address] [place] [address] 09/12/2021 00:00:00 09/12/2021 11:37:10 [id number] [facility] [address] [place] [address] 09/27/2021 00:00:00 09/27/2021 18:35:43 [id number] [facility] [address] [place] [address] 01/27/2022 00:00:00 01/27/2022 14:02:25 [id number] NELI Morse [facility] [address] [place] [address] 08/10/2022 09:02:08 08/10/2022 10:54:47 Sacroiliac joint pain 105170483 M53.3 Low back pain 918778578 M54.50 Multiple joint pain 3567 8005 M25.50 Pain of left hand 262002 2478 60291 M79.642 Sprain of interphalangeal joint of finger 67227705 S63.631A [id number] NELI Morse [facility] [address] [place] [address] 04/09/2023 11:52:44 04/09/2023 12:41:54 Pain of right shoulder joint 1126131665 3442506 M25.511 Tendinitis of right rotator cuff 1242786222 5257540 M67.720 [id number] NELI Morse [facility] [address] [place] [address] 06/07/2023 13:23:59 06/07/2023 15:02:47 Pain of right shoulder joint 6737165671 4515292 M25.511 Tendinitis of right rotator cuff 6224004119 6490552 M67.813 Low back pain 025605844 M54.50 Sacroiliac joint pain 20 3256212 M53.3 [id number] NELI Morse [facility] [address] [place] [address] 09/07/2023 14:32:10 09/07/2023 15:25:32 Pain of right shoulder joint 9553402827 7675570 M25.511 Tendinitis of right rotator cuff 5207040262 9906845 M67.813 Sacroiliac joint pain 20 9036090 M53.3 [id number] NELI Morse [facility] [address] [place] [address] 04/03/2024 09:39:54 04/03/2024 10:28:08 Pain of right shoulder joint 7230601617 8002759 M25.511 Tendinitis of right rotator cuff 7727095951 4644865 M67.813 Impingemen t syndrome of right shoulder region 0711013173 93921 M75.41 [id number] [facility] [address] [address] 04/24/2024 10:05:04 04/24/2024 14:01:05 [id number] Keren Smith NP [facility] [address] [place] [address] 06/16/2024 12:18:54 06/16/2024 14:28:00 Health Concerns Section Related Observation LastModified by Organization Detai ls LastModified Time None Recorded Concern Status LastModified by Organization Details LastModified Time None Recorded Advance Directives Directive None Recorded Payers Encounter Date Sequence Insurance Name Policy Number Policy Escamilla Covered Member ID Escamilla Member ID Guarantor Name 08/10/2022 1 [facility] HOME CARE & TABLE COVER FOLDER FUND - OPEN ACCESS III (PPO) [id number] [facility] [id number] [facility] 04/09/2023 1 [facility] HOME CARE & TABLE COVER FOLDER FUND - OPEN ACCESS III (PPO) [id number] [facility] [id number] [facility] 06/07/2023 1 [facility] HOME CARE & TABLE COVER FOLDER FUND - OPEN ACCESS III (PPO) [id number] [facility] [id number] [facility] 09/07/2023 1 [facility] & TABLE COVER FOLDER [facility] - OPEN ACCESS III (PPO) [id number] [facility] [id number] [facility] 04/03/2024 1 [facility] HOME CARE & TABLE COVER FOLDER [facility] - OPEN ACCESS III (PPO) [id number] [facility] [id number] [facility] Notes Date Note Type Note Provider Name [...] today with the patient. NELI Morse [address], [place], [address], [employer] 08/10/2022 09:55:58 04/09/2023 text/html patient returns today with a new problem. She has right shoulder pain ongoing for about a year. Over the past 2-3 months it has been much worse she described occasional aching iyzq-yr-jwrpupjz pain that radiate into the upper arm [...] NELI Morse [address], [place], [address], [employer] 04/09/2023 12:49:41 06/07/2023 text/html Patient returns complaining [...] she cannot take these medications. NELI Morse [address] [facility] [facility] [address], [place], [address], [facility] [place] 06/07/2023 14:16:22 09/07/2023 text/html Patient returns with [...] since her last cortisone injections. NELI Morse [address] [place] [address], [facility] [address], [place], [address], [place] [facility] 09/07/2023 16:05:09 04/03/2024 text/html the patient retu [...] symptoms with it. She has seen a machines technician he put her on Celebrex for a [...] and further treatment if necessary. NELI Morse [address] [place] [address], [facility] [address], [place], [address], [place] [facility] [employer] 04/03/2024 10:25:59 OBGyn Episode No OBEpisode recorded.
--- OUTSIDE RECORDS SUMMARY | 2024-06-20 20:55 | XMS_ITS | Encounter Summary ---
Author Organization [facility] Address 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 Name Role Phone Unavailable Primary Care Provider Unavailabl e Encounter Details Date Type Department Care Team (Late st Contact Info) Description 06/18/2024 External Device Data [facility] ABSTRACTION Provider, Abstract NO ADDRESS ON FILE Social History Tobacco Use Types Packs/Day Years Used Date Smoking Tobacco: Every Day Cigarettes Smokeless Tobacco: Never Alcohol Use Standard Drinks/Week Comments Yes 0 (1 standard drink = 0.6 oz pur e alcohol) Socially Comments No Sex and Gender Information Value Date Recorded Sex Assigned at Not on file Legal Sex Female 7:07 PM CDT Gender Identity Not on file Sexual Orientation Not on file documented as of this encounter Plan of Treatment Not on file documented as of this encounter Visit Diagnoses Not on filedocumented in this encounter
--- OUTSIDE RECORDS SUMMARY | 2024-06-20 20:55 | XMS_ITS | Clinical Summary ---
Author Organization [facility] Address [address] [place] [address] Care Team Providers Care Specialist Managers Name Role Phone Adrian Bryant MD Primary Care Provider [phone] Medications traMADol (ULTRAM) 50 MG tablet TAKE [...] 78 01/11/2022 1:26 PM CDT Temperature 36.4 C (97.6 F) 01/11/2022 1:26 PM CDT Respiratory Rate - - Oxygen Saturation - [...] patient's age to complete this topic Insurance [employer] OPEN ACCESS [facility] Care Teams Specialist Managers Relationship Specialty Start Date End Date Adrian Bryant MD [address] [place] [address] PCP - General INTERNAL MEDICINE 01/11/22
--- OUTSIDE RECORDS SUMMARY | 2024-06-20 20:55 | XMS_ITS | Referral Summary ---
Author Organization [address] Address [address] [place] [address] Care Team Providers Care Checker Name Role Phone Dc Brooks MD Unavailable Caity Sanabria NP Unavailable [phone] Pamela Parekh MD Primary Care Provider [phone] Encounters Date Type Department Care Team Description 04/16/2024 Telephone [facility] [address] [place] [address] Lashay Carney, RN from Last 3 Months Allergies Active Allergy [...] 05/18/2021 Assessment & Plan (05/18/2021 3:13 PM LICENSED PRACTICAL NURSE CLINIC NURSE): I did request the chest x-ray from [facility] in [place]. I have also ordered another chest x-ray [...] 11/05/2019 Assessment & Plan (05/18/2021 3:11 PM LICENSED PRACTICAL NURSE CLINIC NURSE): The patient was once again encouraged to [...] complication Assessment & Plan (05/18/2021 3:11 PM LICENSED PRACTICAL NURSE CLINIC NURSE): The patient was given sample of Breztri [...] Trelegy. Assessment & Plan (06/04/2019 10:51 AM LICENSED PRACTICAL NURSE CLINIC NURSE): The patient did have significant improvement following bronchodilators. I will give her a trial of Symbicort 160/4.5 and albuterol MDI to see if this improves her symptoms. Shortness of breath 05/14/2019 Assessment & Plan (05/14/2019 8:43 AM LICENSED PRACTICAL NURSE CLINIC NURSE): The patient quit smoking 2 months ago and smoked up to 1 pack of cigarettes a day for 27 years. With her dyspnea on exertion, I will check full PFTs and a 6 minute walk test. Other chest pain 05/14/2019 Assessment & Plan (06/04/2019 10:52 AM LICENSED PRACTICAL NURSE CLINIC NURSE): I will hold off on a CT angiogram of the chest at this time since she felt like the chest pain improved after the nebulizer treatment. Assessment & Plan (05/14/2019 8:42 AM LICENSED PRACTICAL NURSE CLINIC NURSE): The patient has had a previous cardiac workup which was negative. I will start with a chest x-ray and I suspect that her pain is musculoskeletal. If the x-ray is normal, I would consider a chest CT angiogram. She will return to the office in 2 weeks. Elevated lipoprotein(a) 10/30/2018 Abnormal result of other cardiovascular function study 10/22/2018 Dyslipidemia 11/06/2011 Immunizations Immunization Administration Dates Next Due Tdap 07/24/2016 Social [...] on file Legal Sex Female 9:08 PM LICENSED PRACTICAL NURSE CLINIC NURSE Gender Identity Female 07/01/2021 12:01 PM CDT Sexual Orientation Straight 07/01/2021 12 :01 PM CDT Last Filed Vital Signs Vital Sign Reading Time Taken Comments Blood Pressure 112/79 09/04/2023 3:17 PM CDT Pulse 71 09/04/2023 3:17 PM CDT Temperature 36.5 C (97.7 F) 11/05/2019 10:41 AM CDT Respiratory Rate 18 05/18/2021 2:44 PM LICENSED PRACTICAL NURSE CLINIC NURSE Oxygen Saturation 98% 05/18/2021 2:44 PM LICENSED PRACTICAL NURSE CLINIC NURSE Inhaled Oxygen Concentration - - Weight 56.7 kg (125 lb) 02/14/2024 12:21 PM LICENSED PRACTICAL NURSE CLINIC NURSE Height 157.5 cm (5' 2 ) 02/14/2024 12:21 PM LICENSED PRACTICAL NURSE CLINIC NURSE Body Mass Index 22.86 02/14/2024 12:21 PM LICENSED PRACTICAL NURSE CLINIC NURSE Plan of Treatment Not on file Insurance [employer] OPEN ACCESS [employer] OPEN ACCESS Care Teams Checker Relationship Specialty Start Date End Date Pamela Parekh MD PCP - General Family Medicine 09/04/23 Dc Brooks MD Obstetrics and Gynecology 05/14/19 Caity Sanabria NP Nurse Practitioner Nurse Practitioner 01/12/22
--- OUTSIDE RECORDS SUMMARY | 2024-06-20 20:55 | XMS_ITS | Data Portability ---
Author Organization [facility] MICHAELPascale Address [address] [facility] [place] [address] Care Team Providers Care Oil Fire Specialist Name Role Phone ROCIO MORRIS Railroad Watchman Assessment Encounter Date Assessment Date Assessment LastModified by Organization Details LastModified Time 12/02/2021 12/02/2021 ANTOINETTE Monet PA-S Not available 12/06/2021 07:29:45 Plan of Treatment Reminders Order Date Submit Date Provider Last Modified By Organization Details Last Modified Time Details Appointments None recorded. Lab lh + FSH, serum 2022 023 [facility], [address], [place], [address], 3 03:08:21 estradiol, serum 2022 023 [facility], [address], [place], [address], 3 03:08:20 TSH + free T4, serum 2022 023 [facility], [address], [place], [address], 3 03:08:18 urinalysis, dipstick 2022 023 [email or web address] In-Office Order, Internal Use Only DO Not Attach Compendium DO Not Attach Compendium, Do Not Delete/merge, [id number] 3 11:40:38 culture, urine 2022 023 [facility], [address], [place], [address], 3 03:08:21 HbA1c (hemoglobin A1c), blood 2022 023 [facility], [address], [place], [address], 3 03:08:19 bacterial vaginosis score, VENTURA+probe, vaginal fluid (OBS) 2021 022 [facility], [address], [place], [address], 2 20:07:53 Referral orthopedic surgeon referral 2022 023 [facility], [address], [place], [address], 3 14:17:33 hematologis t referral 2022 023 YESICA Baptiste MD, [address], [place], [address], 3 23:42:08 breast surgery referral 2022 023 [facility], [address], [address], [place], [address], 4 14:11:01 Procedures None recorded. Surgeries None recorded. Imaging US, doppler, arterial 2022 023 [facility] ([facility]), [address] [place], [address], 3 12:42:32 US, pelvis, transabdomi nal + transvagina l - follow up CT scan 01/21/23, possible abscess vrs. L. adnexal cyst measuring [id number] 2022 023 [facility] ([facility]), [address] [place], [address], 3 09:45:41 US, pelvis, transabdomi nal + transvagina l [address] ([facility]), [address] [place], [address], 3 09:05:06 MAMMO, diagnostic, digital, bilateral [address] ([facility]), [address] [place], [address], 3 16:16:29 US, breast, bilateral 2022 023 [facility] ([facility]), [address] [place], [address], 3 17:13:52 MAMMO, screening, bilateral [address] ([facility]), [address] [place], [address], 2 20:45:10 Medication Orders pregabalin 50 mg capsule 2022 023 [id number], [address] , [place], [place], [id number], 3 13:46:16 Patient TargetsNo targets recorded. Patient Instructions Encounter Date Encounter Id Patient Instructions Last Modified By Organization Details Last Modified Time 12/02/2021 [id number] learning about breast cancer screening Not available 12/02/2021 17:10:23 Follow up with PCP and GI for IBS symptoms. Not available 12/14/2021 15:54:06 01/26/2023 [id number] Kya MORA discussed case with Lachelle Morris PA-C Not available 01/26/2023 16:55:15 03/15/2023 [id number] Follow up with PCP for abdominal pain, normal CT results [email or web address] Not available 03/30/2023 17:31:14 Kulwinder Mcdonald Discussed with Lachelle Morris PA-C [email or web address] Not available 03/30/2023 17:29:01 Reason for Referral Breast Surgery Referral for Multiple cysts of breast Referring Physician: Rocio Morris, Transportation Planning Engineer, Encounter Date: 11/22/2022 Orthopedic Surgeon Referral for Pain in bilateral lower legs Referring Physician: Adrian Bryant, Internal Medicine, Encounter Date: 02/20/2023 Referring Physician: Adrian Bryant, Internal Medicine, Encounter Date: 02/20/2023 Results Created Date Observation Date Name Description Value Unit Range Abnormal Flag Note LastModifiedBy Organization Detail LastModifiedTime 12/03/19 22 12/10/2021 NUSWA B VG+, HSV atopobium vaginae Low - 0 score Not Available [facility] ([facility]) [address] [place], [address], 12/10/2021 20:07:53 12/03/19 22 12/10/2021 NUSWA B VG+, HSV bvab 2 Low - 0 score Not Available [facility] ([facility]) [address] [place], [address], 12/10/2021 20:07:53 12/03/1912/10/2021 NUSWA B VG+, HSV [...] Drug Admin istra tion. Not Available [facility] ([facility]) [address] [place], [address], 12/10/2021 20:07:53 12/03/19 22 12/10/2021 NUSWA B VG+, HSV serena albicans, VENTURA Negati ve negati ve Not Available [facility] ([facility]) [address] [place], [address], 12/10/2021 20:07:53 12/03/19 22 12/10/2021 NUSWA B VG+, HSV serena glabrata, VENTURA Negati ve negati ve Not Available [facility] ([facility]) [address] [place], [address], 12/10/2021 20:07:53 12/03/19 22 12/10/2021 NUSWA B VG+, HSV trich vag by VENTURA Negati ve negati ve Not Available [facility] ([facility]) [address] [place], [address], 12/10/2021 20:07:53 12/03/19 22 12/10/2021 NUSWA B VG+, HSV chlamydia trachomatis, VENTURA Negati ve negati ve Not Available [facility] ([facility]) [address] [place], [address], 12/10/2021 20:07:53 12/03/19 22 12/10/2021 NUSWA B VG+, HSV neisseria gonorrhoeae, VENTURA Negati ve negati ve Not Available [facility] ([facility]) [address] [place], [address], 12/10/2021 20:07:53 12/03/19 22 12/10/2021 NUSWA B VG+, HSV hsv 1 VENTURA Negati ve negati ve Not Available [facility] ([facility]) [address] [place], [address], 12/10/2021 20:07:53 12/03/19 22 12/10/2021 NUSWA B VG+, HSV hsv 2 VENTURA Negati ve negati ve Not Available [facility] ([facility]) [address] [place], [address], 12/10/2021 20:07:53 03/15/20 23 03/16/2023 TSH+F REE T4 TSH 1.720 uIU/m L 0.450- 4.500 Not Available [facility] ([facility]) [address] [place], [address], 03/17/2023 03:08:18 03/15/2003/16/2023 TSH+F REE T4 T4,free(dire ct) 1.30 NG/dL 0.82-1 .77 Not Available [facility] ([facility]) [address] [place], [address], 03/17/2023 03:08:18 03/15/2003/16/2023 HEMOG LOBIN A1C hemoglobin A1C 5.4 % 4.8-5. 6 Predi abete s: 5.7 - 6.4 Diabe kelsey: >6.4 Glyce debi contr ol for adult s with diabe kelsey: <7.0 Not Available [facility] ([facility]) [address] [place], [address], 03/17/2023 03:08:19 03/15/2003/16/2023 ESTRA DIOL estradiol 9.1 pg/mL Adult Femal e Range Folli cular phase 12.5 - 166.0 Ovula tion phase 85.8 - 498.0 Lutea l phase 43.8 - 211.0 Postm enopa usal <6.0 - 54.7 Pregn kirk 1st trime ster 215.0 - >4300 .0 Jeni ECLIA metho dolog y Not Available [facility] ([facility]) [address] [place], [address], 03/17/2023 03:08:20 03/15/20 23 03/16/2023 URINE CULTU RE, ROUTI NE urine culture, routine Final report Not Available [facility] ([facility]) [address] [place], [address], 03/17/2023 03:08:20 03/15/2003/16/2023 URINE CULTU RE, ROUTI NE result 1 Commen t Mixed uroge nital donna 10,00 0-25, 000 colon y formi ng units per mL Not Available [facility] ([facility]) [address] [place], [address], 03/17/2023 03:08:20 03/15/2003/16/2023 FSH AND LH LH 64.0 mIU/m L Adult Femal e Range Folli cular phase 2.4 - 12.6 Ovula tion phase 14.0 - 95.6 Lutea l phase 1.0 - 11.4 Postm enopa usal 7.7 - 58.5 Not Available [facility] ([facility]) [address] [place], [address], 03/17/2023 03:08:21 03/15/2003/16/2023 FSH AND LH FSH 116.0 mIU/m L Adult Femal e Range Folli cular phase 3.5 - 12.5 Ovula tion phase 4.7 - 21.5 Lutea l phase 1.7 - 7.7 Postm enopa usal 25.8 - 134.8 Not Available [facility] ([facility]) [address] [place], [address], 03/17/2023 03:08:21 03/15/20 23 03/15/2023 urina lysis , dipst ick Leukocytes Negati ve Not Available In-Office Order Internal Use Only DO Not Attach Compendium DO Not Attach Compendium, Do Not Delete/merge, [id number] 03/15/2023 11:30:13 03/15/20 23 03/15/2023 urina lysis , dipst ick Nitrite negati ve Not Available In-Office Order Internal Use Only DO Not Attach Compendium DO Not Attach Compendium, Do Not Delete/merge, [id number] 03/15/2023 11:30:13 03/15/20 23 03/15/2023 urina lysis , dipst ick Urobilinogen .2 Not Available In-Of fice Order Internal Use Only DO Not Attach Compendium DO Not Attach Compendium, Do Not Delete/merge, [id number] 03/15/2023 11:30:13 03/15/20 23 03/15/2023 urina lysis , dipst ick Protein Negati ve Not Available In-Office Order Internal Use Only DO Not Attach Compendium DO Not Attach Compendium, Do Not Delete/merge, [id number] 03/15/2023 11:30:13 03/15/20 23 03/15/2023 urina lysis , dipst ick pH 5.5 Not Available In-Office Order Internal Use Only DO Not Attach Compendium DO Not Attach Compendium, Do Not Delete/merge, [id number] 03/15/2023 11:30:13 03/15/20 23 03/15/2023 urina lysis , dipst ick Blood Non-He molyze d: Trace Not Available In-Office Order Internal Use Only DO Not Attach Compendium DO Not Attach Compendium, Do Not Delete/merge, [id number] 03/15/2023 11:30:13 03/15/20 23 03/15/2023 urina lysis , dipst ick Specific [place] 1.030 Not Available In-Off ice Order Internal Use Only DO Not Attach Compendium DO Not Attach Compendium, Do Not Delete/merge, [id number] 03/15/2023 11:30:13 03/15/20 23 03/15/2023 urina lysis , dipst ick Ketone Negati ve Not Available In-Office Order Internal Use Only DO Not Attach Compendium DO Not Attach Compendium, Do Not Delete/merge, [id number] 03/15/2023 11:30:13 03/15/20 23 03/15/2023 urina lysis , dipst ick Bilirubin Small Not Available In-Offic e Order Internal Use Only DO Not Attach Compendium DO Not Attach Compendium, Do Not Delete/merge, [id number] 03/15/2023 11:30:13 03/15/20 23 03/15/2023 urina lysis , dipst ick Glucose Negati ve Not Available In-Office Order Internal Use Only DO Not Attach Compendium DO Not Attach Compendium, Do Not Delete/merge, [id number] 03/15/2023 11:30:13 12/22/19 22 12/19/2021 MAMMO , scree kit, bilat eral No observ ation record ed. [email or web address] [facility] [address] [place], [address], 12/22/2021 15:46:02 01/11/20 22 01/10/2022 US, breas t, bilat eral No observ ation record ed. [facility] [address] [place], [address], 01/11/2022 20:34:09 01/15/20 22 01/14/2022 XR, knee No observ ation record ed. [facility] [address] [place], [address], 11/22/2022 10:57:26 03/25/20 22 03/25/2022 XR, ribs, unila teral No observ ation record ed. [email or web address] [facility] [address] [place], [address], 03/31/2022 06:00:56 10/29/19 23 10/28/2022 CT, abdom en + pelvi s, w/ contr ast No observ ation record ed. [email or web address] [place], [address], 11/02/2022 01:14:05 12/15/19 23 12/14/2022 US, breas t, bilat eral No observ ation record ed. [facility] [address] [place], [address], 12/15/2022 08:50:31 12/15/19 23 12/14/2022 MAMMO , diagn ostic , digit al, bilat eral No observ ation record ed. [address] [place], [address], 01/26/2023 16:43:04 12/15/19 23 12/14/2022 US, pelvi s, trans abdom inal + trans vagin al No observ ation record ed. [address] [place], [address], 01/26/2023 16:43:05 01/22/20 23 01/21/2023 CT, abdom en + pelvi s, w/ contr ast No observ ation record ed. [address] [place], [address], 01/26/2023 16:43:03 02/15/20 23 02/13/2023 US, pelvi s, trans abdom inal + trans vagin al No observ ation record ed. [facility] ([facility]) [address] [place], [address], 03/14/2023 16:39:16 03/08/20 23 03/08/2023 CT, abdom en + pelvi s, w/ contr ast No observ ation record ed. [facility] [address] [place], [address], 03/22/2023 16:44:32 03/27/20 23 03/09/2023 US, doppl er, arter ial No observ ation record ed. [email or web address] Not Available 2023 09:40:54 04/11/19 24 04/10/2023 MAMMO , scree kit, bilat eral No observ ation record ed. [address], [place], [address], 04/25/2023 05:09:13 05/02/19 24 05/01/2023 XR, chest No observ ation record ed. [address] [place], [address], 05/02/2023 11:53:35 07/20/19 24 07/20/2023 CT, abdom en + pelvi s, w/ contr ast No observ ation record ed. [address] ([facility]) [address] [place], [address], 08/05/2023 20:11:27 10/15/19 24 10/12/2023 trans -thor acic echoc ardio gram (TTE) (PROC ) No observ ation record ed. [address] [facility] [address], [place], [address], 10/17/2023 05:51:10 01/04/20 24 01/04/2024 cardi ac stres s test No observ ation record ed. [address] [facility] [address], [place], [address], 01/08/2024 11:54:07 05/01/19 25 04/30/2024 cardi ac acous tic wavef orm recor ding with autom ated [facility]ayan arter y disea se risk score (PROC ) No observ ation record ed. [address] [facility] [address], [place], [address], 05/01/2024 21:35:16 Result Notes None recorded. Problems Name Problem SNOMED Code Status Onset Date Resolution Date Notes Provider Name and Address Organization Details Recorded Time Disorder of vitamin D 679899899 Active Not Available [facility] 3 07:15:16 Ankle pain 400779451 Completed 08/09/2017 BENJA Shannon - [facility] 8 18:32:29 Pain radiatin g to right leg 775581403 Completed 201708/09/2017 BENJA Shannon - [facility] 9 16:59:55 Pain radiatin g to right leg 636510804 Completed 201712/16/2018 [facility]JA Shannon - [facility] 9 16:59:55 Pain in left knee Completed 201812/16/2018 BENJA Shannon - [facility] 9 16:59:48 Neck pain 85941567 Completed 201812/16/2018 BENJA Shannon - [facility] 9 17:00:16 Low back pain 513964874 Active 2018 Not Available [facility] 3 07:15:16 Family history of coronary arterios clerosis 561007225 Active 2018 Not Available [facility] 3 07:15:16 Pruritus ani 52294887 Active 2018 Not Available [facility] 3 07:15:16 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 Active 2018 Not Available [facility] 3 07:15:16 Genital herpes simplex 91517923 Active 2018 Not Available [facility] 3 07:15:16 Fibromya lgia 496282888 Active 2019 Not Available [facility] 3 07:15:16 Spasm 86410530 Active 2019 Generali zed Not Available [facility] 3 07:15:16 Anxiety 28445901 Active 2019 Not Available [facility] 3 07:15:16 Temporom andibula r joint disorder 56795155 Active 2019 Not Available [facility] 3 07:15:16 Disorder of maxilla 236767253 Active 2019 Not Available [facility] 3 07:15:16 Abnormal weight loss 806904368 Active 2019 Not Available [facility] 3 07:15:16 Tremor 18414622 Active 2019 Not Available [facility] 3 07:15:16 Tachycar love 6913350 Active 2019 Not Available [facility] 3 07:15:16 Abnormal thyroid hormone 245197427 Active 2019 Not Available [facility] 3 07:15:16 Thyroid nodule 798572658 Active 2019 Not Available [facility] 3 07:15:16 Otitis externa 4561739 Active 2020 Not Available [facility] 3 07:15:16 Hypergly cemia 56575220 Active 2020 Not Available [facility] 3 07:15:16 Popping sensatio n in ear 938442572 Active 2020 Not Available [facility] 3 07:15:16 History of SARS-CoV -2 85574827198 2390112 Active 2020 Not Available [facility] 3 07:15:16 Tobacco dependen ce syndrome 38763422 Active 2021 Not Available [facility] 3 07:15:16 Eruption 837872229 Active 2021 face Not Available [facility] 3 07:15:16 Pain in bilatera l lower legs 62499076382 927659 Active 2022 Adrian Bryant MD Attn: Accounting ,[address], [place], [address] , [place] [facility] 3 13:31:27 Pain 97817186 Active 2022 right periscap ular area Adrian Bryant MD Attn: Accounting ,[address], [place], [address] , [place] [facility] 3 13:32:35 Chronic constipa tion 686861171 Active 2022 Adrian Bryant MD Attn: Accounting ,[address], [place], [address] , [place] [facility] 3 13:35:16 Ferritin level below referenc e range 595529916 Active 2022 Adrian Bryant MD Attn: Accounting ,[address], [place], [address] , [place] [facility] 3 13:40:44 Vaginal discharg e 324434773 Completed 12/16/2018 Dc joseph [place] [facility] 9 16:59:43 Acute vulvitis 77089800 Active Not Available [facility] 3 07:15:16 Gastroes ophageal reflux disease 315096947 Active Not Available [facility] 3 07:15:16 Fatigue 02161784 Completed 12/16/2018 Dc joseph [place] [facility] 9 17:00:12 Periodic limb movement disorder 040913297 Completed 08/09/2017 Dc [place] [facility] 8 18:32:40 Tinea pedis 5701696 Active Not Available [facility] 3 07:15:16 Pruritus ani 21392711 Completed 08/09/2017 Dc [place] [facility] 9 14:52:03 Dermatit is Completed 08/09/2017 Dc [place]oseph [place] [facility] 8 18:32:15 Bipolar disorder 13684725 Active Not Available [facility] 3 07:15:16 Allergic rhinitis 26654382 Active Not Available [facility] 3 07:15:16 Inflamma tion of cervix 53872583 Completed 08/09/2017 Dc [place]oseph [place] [facility] 8 18:32:37 Colitis 28913955 Active Not Available [facility] 3 07:15:16 Candidia sis 74665586 Completed 08/09/2017 Dc [place]oseph [place] [facility] 8 18:33:20 Decrease in appetite 50647804 Completed 08/09/2017 BENJA Shannon 8 18:33:44 On examinat ion - vaginal discharg e Completed 08/09/2017 BENJA Shannon 8 18:32:06 Irritabl e bowel syndrome 10474619 Active Not Available [facility] 3 07:15:16 Allergic conditio n 034795662 Completed 12/16/2018 BENJA Shannon 9 16:59:59 Cough 46675586 Completed 08/09/2017 BENJA Shannon 8 18:33:33 Wheezing 23185214 Completed 08/09/2017 BENJA Shannon 8 18:33:39 Tobacco user 396513973 Active Not Available [facility] 3 07:15:16 Migraine 71500092 Active Not Available [facility] 3 07:15:16 Hyperlip idemia 43251418 Active Not Available [facility] 3 07:15:16 Backache 610571627 Completed 08/09/2017 BENJA Shannon 8 18:32:02 Annular tear of lumbar disc 387691750 Active Not Available [facility] 3 07:15:16 Dysmenor baljeet 774703768 Completed 12/16/2018 BENJA Shannon 9 16:59:17 Depressi ve disorder 45373937 Active Not Available [facility] 3 07:15:16 Insomnia 773199722 Completed 08/09/2017 BENJA Shannon 8 18:33:51 Muscle spasm of cervical muscle of neck 72679860597 4 Completed 08/09/2017 BENJA Shannon 8 18:32:23 Vitamin D deficien cy 40717795 Active Not Available [facility] 3 07:15:16 Dermal mycosis 08447180 Completed 08/09/2017 Dc joseph [place] [facility] 8 18:32:19 Shoulder pain 68531315 Completed 08/09/2017 Dc joseph [facility] 8 18:32:48 Onychomy cosis 233268214 Active Not Available [facility] 3 07:15:16 Urinary tract infectio us disease 10235229 Active Not Available [facility] 3 07:15:16 Night sweats 69712059 Completed 08/09/2017 Dc joseph [facility] 8 18:32:46 Mild depressi on 764706407 Active 2016 Not Available [facility] 3 07:15:16 Increase d frequenc y of urinatio n 838997350 Completed 201608/09/2017 Dc joseph [facility] 8 18:32:08 HIV screenin g Completed 201608/09/2017 Dc joseph [facility] 8 18:32:12 Candidia sis of vagina 71529667 Active 2016 Not Available [facility] 3 07:15:16 Problem Notes None recorded. Procedures Surgical History Date Name Laterality Status Provider Name and Address Organization Details Recorded Time 022 Date of Last Mammogram completed Yulia Philippe [place] 11/22/2022 10:47:34 018 Total Abdominal Hysterectomy completed Lady Fierro PA-C Attn: Accounting[address] [place], [address], [place] 09/07/2017 09:01:14 017 Date of Last Pap Smear completed Yulia Philippe [place] 08/09/2017 14:20:54 014 Other completed Raffi Fang [place] 02/23/2014 16:02:46 012 Gallbladder Surgery completed Jerri Murphy LPN [place] - [place] 02/19/2014 08:44:34 012 Gastrointestinal Surgery completed Raffi Fang [place] 02/23/2014 16:00:49 006 Other completed Raffi Fang [place] [facility] 02/23/2014 16:00:49 005 Ovarian Cystectomy completed Jerri Murphy LPN [place] [facility] 02/19/2014 08:44:34 000 Tubal Ligation completed Jerri Murphy LPN [place] [facility] 02/19/2014 08:44:34 Total hysterectomy completed Evelyn Collazo MA [place] [facility] 09/20/2017 15:07:20 Imaging Results Imaging Date Name Status LastModified by Organization Details LastModified Time 12/19/2021 MAMMO, screening, bilateral completed [email or web address] [facility] [address] [place], [address], 12/22/2021 15:46:02 01/10/2022 US, breast, bilateral completed YESICA [facility] [address] [place], [address], 01/11/2022 20:34:09 01/14/2022 XR, knee completed [facility] [address] [place], [address], 11/22/2022 10:57:26 03/25/2022 XR, ribs, unilateral completed [email or web address] [facility] [address] [place], [address], 03/31/2022 06:00:56 10/28/2022 CT, abdomen + pelvis, w/ contrast completed [email or web address] [place] [address] [address] [place], [address], 11/02/2022 01:14:05 12/14/2022 US, breast, bilateral completed [facility] [address] [place], [address], 12/15/2022 08:50:31 12/14/2022 MAMMO, diagnostic, digital, bilateral completed [facility] [address] [place], [address], 01/26/2023 16:43:04 12/14/2022 US, pelvis, transabdominal + transvaginal completed [email or web address] [place], [address], 01/26/2023 16:43:05 01/21/2023 CT, abdomen + pelvis, w/ contrast completed [email or web address] [place], [address], 01/26/2023 16:43:03 02/13/2023 US, pelvis, transabdominal + [facility]aginal [facility] [address] [place], [address], 03/14/2023 16:39:16 03/08/2023 CT, abdomen + pelvis, w/ contrast completed [facility] [address] [place], [address], 03/22/2023 16:44:32 03/09/2023 US, doppler, arterial completed [facility] Information not available 04/04/2023 09:40:54 04/10/2023 MAMMO, screening, bilateral completed [address], [place], [address], 04/25/2023 05:09:13 05/01/2023 XR, chest completed [address] [place], [address], 05/02/2023 11:53:35 07/20/2023 CT, abdomen + pelvis, w/ contrast completed [address] ([facility]) [address] [place], [address], 08/05/2023 20:11:27 10/12/2023 trans-thoracic echocardiogram (TTE) (PROC) completed [address] [facility] [address], [place], [address], 10/17/2023 05:51:10 01/04/2024 cardiac stress test completed [address] [facility] [address], [place], [address], 01/08/2024 11:54:07 04/30/2024 cardiac acoustic waveform recording with automated analysis and generation of coronary artery disease risk score (PROC) completed [address] [facility] [address], [place], [address], 05/01/2024 21:35:16 Procedure Notes None recorded. Medical Equipment None Reported. Allergies Allergen ID Allergen Name Allergen Category Reaction Reaction Severity Criticality Documentation Date Start Date Code Code System Note Provider Name and Address Organization Details Recorded Time 1141 hydromorp graham medicatio n dizziness Not available Not available 02/19/2014 3423 RxNorm Not Available Not Available Not Available 1142 pravastat in medicatio n myalgias (muscle pain) Not available Not available 02/19/2014 93277 RxNorm Not Available Not Available Not Available 1143 codeine medicatio n vomiting Not available Not available 02/19/2014 2670 RxNorm sever e stoma ch pain Not Available Not Available Not Available Medications Name Sig Start Date Stop Date Status Note LastModified by Organization Details LastModified Time magnesium oxide 400 (240 mg) mg tabs active Not Available Not Available Not Available insulin syringe/u- 100/1ml/31 g x 5 6 31g x 08/15 1 ml misc active Not Available Not [...] BEVERAGE AND TAKE BY MOUTH TWICE DAILY 10/13 completed Not [...] height Body mass index (BMI) Body weight Systolic blood pressure Diastolic blood pressure Provider Name and Address Organization Details Last Updated DateTime 12/02/2021 157.48 cm 23.1 kg/m2 59514.07 g 116 mm[Hg] 66 mm[Hg] Beckie rKamer MA [place] - [facility] 2 17:00:56 Date Recorded Body height Body mass index (BMI) Body weight Systolic blood pressure Diastolic blood pressure Provider Name and Address Organization Details Last Updated DateTime 11/22/2022 157.48 cm 24.1 kg/m2 63524.19 g 112 mm[Hg] 70 mm[Hg] Yulia Philippe MA [place] [facility] 3 10:55:32 Date Recorded Body height Body mass index (BMI) Body weight Systolic blood pressure Diastolic blood pressure Provider Name and Address Organization Details Last Updated DateTime 01/26/2023 157.48 cm 24.1 kg/m2 04765.19 g 112 mm[Hg] 70 mm[Hg] Jillian Hdz MA [facility] 3 15:52:16 Date Recorded Body height Body mass index (BMI) Body weight Heart rate Body temperature Oxygen saturation Oxygen saturation in Arterial blood by Pulse oximetry Systolic blood pressure Diastolic blood pressure Provider Name and Address Organization Details Last Updated DateTime 3 157.48 cm 24.5 kg/m2 17453.3 8 g 99 /min 98.1 [degF] 98 % 98 % 106 mm[Hg] 76 mm[Hg] Peggy Short MA [place] - [facility] 3 12:28:37 Date Recorded Body height Body mass index (BMI) Body weight Systolic blood pressure Diastolic blood pressure Provider Name and Address Organization Details Last Updated DateTime 03/15/2023 157.48 cm 24.3 kg/m2 40261.79 g 112 mm[Hg] 74 mm[Hg] Micki Santillan MA [place] [facility] 3 11:04:00 Social History Question Answer Notes LastModified by Organizat ion Details LastModified Time Tobacco Smoking Status Former Smoker Yulia Philippe MA [facility], [place] - [facility] 11/22/2022 10:53:53 Do You Have An Advance Directive? No [email or web address] Information not available 06/15/2014 What Is Your Level Of Alcohol Consumption? Occasional Information not available 02/23/2014 Is Blood Transfusion Acceptable In An Emergency? Yes [email or web address] Information not available 06/15/2014 What Is Your Level Of Caffeine Consumption? Occasional Information not available 07/07/2020 How Much Tobacco Do You Chew? None [email or web address] Information not available 06/15/2014 Are You Currently Employed? No [email or web address] Information not available 06/15/2014 What Type Of Diet Are You Following? REGULAR [email or web address] Information not available 06/15/2014 Which Illicit Or Recreational Drugs Have You Used? Patient Denies [email or web address] Information not available 11/30/2014 Do You Or [...] available 07/07/2020 Performs Monthly Self-breast Exam? Yes [email or web address] Information not available 06/15/2014 Do You Use Protection During Sex? No [email or web address] Information not available 06/15/2014 What Is Your Relationship Status? Single [email or web address] Information not available 06/15/2014 Do You Use Your Seat Belt Or Car Seat Routinely? Yes Information not available 07/07/2020 Seat Belts Used Routinely Yes Information not available 06/15/2014 Are You Sexually Active? Yes Information not available 06/15/2014 Do You Have Smoke And Carbon Monoxide Detectors In Your Home? Yes Information not available 07/07/2020 At What Age Did You Start Smoking Tobacco? 13 [email or web address] Information not available 06/15/2014 Are You Passively [...] 11/22/2022 Do You Use Sunscreen Routinely? No [email or web address] Information not available 06/15/2014 Has Tobacco Cessation Counseling Been Provided? Yes Information not available 07/07/2020 On What Date Was Tobacco Cessation Counseling Provided? 02/20/2023 Information not available 02/20/2023 How Many Years Have You Smoked Tobacco? 22 [email or web address] Information not available 06/15/2014 Do You Or Have You Ever Used Any Other Forms Of Tobacco Or Nicotine? Yes Information not available 11/22/2022 Sex: Unknown Functional Status Question Answer Note LastModified by Organizat ion Details LastModified Time Are you able to care for yourself? Yes Information not available 02/23/2014 What is your exercise level? Occasional [email or web address] Information not available 06/15/2014 Mental Status None [...] Disorder N Colon Polyps N Heart Attack ([place]) N Diabetes N Cardiomyopathy N Blood Transfusions [...] Vaccine Type Date Status Note Provider Nam deysi and Address Organization Details Recorded Time Tdap 07/24/2016 completed Not Available [facility] 04/19/2019 02:42:35 Past Encounters Encounter ID Performer Location Encounter Start Date Encounter Closed Date Diagnosis/Indication Diagnosis SNOMED-CT Code Diagnosis ICD10 Code Diagnosis Note [id number] [place] [address] 02/23/2014 15:45:36 02/23/2014 16:49:48 Tobacco user [id number] Annular te ar of lumbar disc 662114176 Backache 996173555 Ankle pain 810049238 Chr onic Disorder of vitamin D 185320551 [id number] Dc Brooks Roman (EMBEDDED HARDWARE ENGINEER) [address] [place] [address]37-071 0 03/03/2014 10:40:31 03/03/2014 11:34:26 [id number] FERNANDO Reilly (EMBEDDED HARDWARE ENGINEER) [address] [place] [address] 06/15/2014 12:05:02 06/15/2014 13:32:05 Vaginal discharge 507589864 Acute vulvitis 31815394 [id number] FERNANDO Mtz [address] [place] [address] 06/25/2014 10:54:58 06/25/2014 11:45:28 Ankle pain 399077774 Chronic Annular te ar of lumbar disc 454853965 Gastroesop hageal reflux disease 152628963 Protonix has failed Prilosec and Prevacid Disorder of vitamin D 766326131 Fatigue 77240651 Periodic l imb movement disorder 724604477 R/o restless legs syndrome Tinea pedis 9825627 [id number] Lady Fierro PA-C Blanco Capri [address] [place] [address] 07/30/2014 11:02:05 07/30/2014 11:39:00 Dermatitis 575265902 Told her to not use alcohol or vinegar on patch. Advised to use vasoline often and to apply a large layer at night. [id number] Rochelle Allen MA Bl[facility] Capri [address] [place] [address] 08/17/2014 12:05:48 08/17/2014 12:51:47 Disorder of vitamin D 192556324 Will check vitamin D levels today - if low will do another 2 months of vitamin D Bipolar disorder 35572091 Would like to see a psychiatri st Allergic rhinitis 83991148 Advised to try Zyrtec as well. Will possibly help with atopic dermatitis as well. Dermatitis 735077748 Wou ld like to see a dermatolog ist when she has good insurance come August. Will see if Zyrtec and fluticason e are helpful in alleviatin g what I suspect is the atopic march. [id number] FERNANDO Reilly (EMBEDDED HARDWARE ENGINEER) [address] [place] [address] 09/02/2014 10:05:46 09/02/2014 11:54:50 Inflammation of cervix 58791365 Bleeding to posterior canal noted Colitis 03743006 [place] c tenderness noted. No cervical motion tenderness . Streptococcus carrier 303332593 [id number] Dc Brooks Roman (EMBEDDED HARDWARE ENGINEER) [address] [place] [address] 97984-557 0 09/16/2014 15:37:45 09/16/2014 17:28:07 Vaginal discharge 058320899 NORMAL [id number] Roman (Adult Med) [address] [place] [address] 16795-482 0 10/23/2014 11:33:11 10/23/2014 12:23:17 Fatigue 79365613 Decrease in appetite 12054328 Would like healthier eating options [id number] FERNANDO Reilly (EMBEDDED HARDWARE ENGINEER) [address] [place] [address] 0 11/30/2014 10:19:29 11/30/2014 13:38:25 On examination - vaginal discharge 191524915 Irritable bowel syndrome 54365489 [id number] LEXI Cantu (Adult Med) [address] [place] [address] 84147-891 0 01/06/2015 16:02:13 01/06/2015 22:27:12 Allergic condition 795311786 T78.40XS Cough 91410871 R05 If the cough proceeds to a sinus infection, which she states generally happens when she begins with this it turns into bronchitis and then into a sinus infection. If sx's persist for 10 day she will miner pick the Zpack. She generally lets this run its course and sometimes it does not turn into a sinus infection but would like the zpack there just in case it does Wheezing 54879359 R06.2 Audible wheezing at home - states that she feels like she cannot clear her throat and that it is tightening [id number] LEXI Cantu (Adult Med) [address] [place] [address] 22753-682 0 04/28/2015 14:07:38 04/28/2015 14:48:24 Tobacco user 354360165 Z72.0 RTC 1 month for f/u Discussed [...] of soda Disorder of vitamin D 38 7996929 E55.9 WIll check today and fill accordingl y Allergic condition 76056 1001 T78.40XS [id number] LEXI Cantu (Adult Med) [address] [place] [address] 20459-639 0 05/27/2015 14:11:05 05/27/2015 14:45:24 Insomnia 054859987 G47.00 Will initiate doxepin 50mg qPM at bedtime RTC 3 weeks Muscle spa sm of cervical muscle of neck 4975444923 04 M62.838 [employer]gir[employer] has worked for her in the past Headache likely 2/2 muscle spasms and stress Tobacco user 940429953 Z 72.0 Quit cold turkey - last cigarette 1 week ago Depressive disorder 3548 900 F32.9 Advised to make an appointmen t with psychiatry - she has no interest in this at this time [id number] LEXI Cantu (Adult Med) [address] [place] [address] 54302-573 0 08/16/2015 11:59:57 08/16/2015 13:28:12 Depressive disorder 41436231 F32.9 Advised to make an appointmen t with psychiatry - she has no interest in this at this time Vitamin D deficiency 347 96699 E55.9 Will recheck vitamin d today Insomnia 004578625 G47.0 0 Continue doxepin 50mg as needed Adult heal th examination 200091595 Z00.01 Dermal mycosis 14406058 B36.9 Will initiate fluconazol e 200mg QD RTC in one month if no improvemen t with medicaiton Tobacco user 264284739 Z 72.0 Very stressed right now - states that her oldest is going to school in [place] and then her youngest is causing her issues [id number] LEXI Cantu (Adult Med) [address] [place] [address] 34559-106 0 10/08/2015 09:29:59 10/08/2015 12:23:46 Dermal mycosis 16957722 B36.9 Will prescribe Lamasil cream Shoulder pain 61045891 M 25.511 Will begin with PT Onychomycosis 820972937 B35.1 Greatly improved with healthy nail bases, no need for medication at this time [id number] MD Roman [facility] (EMBEDDED HARDWARE ENGINEER) [address] [place] [address] 28716-028 0 11/17/2015 10:29:21 11/22/2015 12:33:33 Gynecologic examination 23120606 Z01.419 Urinary tr act infectious disease 00869682 N39.0 Night sweats 62213174 R6 1 Candidiasis 18607424 B37 .9 [id number] LEXI Cantu (Adult Med) [address] [place] [address] 55430-451 0 01/13/2016 12:32:25 01/13/2016 17:49:44 Gastroesophageal reflux disease 960047200 K21.9 Will refer back to GI for evalDiscus sed that her emotional stress can cause her physical sx's - if she does not get any relief from GI advised that I recommend she see psychShe has tried numerous PPI, bentyl, Zantac to no relief Hyperlipidemia 47094258 E78.5 Will recheck today Vitamin D deficiency 347 21335 E55.9 Will recheck vitamin d today [id number] Dc Owens HC (EMBEDDED HARDWARE ENGINEER) [address] [place] [address] 42504-958 0 02/03/2016 14:49:45 02/03/2016 22:07:04 Dysmenorrhea 666820557 N94.6 Dysfunctio nal uterine bleeding 67012559 N93.8 Candidiasis of vagina 72 620214 B37.3 Chronic pe lvic pain of female 119111065 R10.2 Irritable bowel syndrome 91067782 K58.9 Bipolar disorder 2865984 4 F31.9 [id number] LEXI Cantu (Peds) [address] [place] [address] 32037-167 0 07/24/2016 16:26:11 07/25/2016 13:35:32 Increased frequency of urination 719497836 R35.0 UA negative - advised to drink plenty of waterStay away from alcohol and any sugary drinks Active or passive immunization 209077249 Z23 HIV screening 760635927 Z11.4 Mild depression 49597830 3 F32.0 having some issues with her youngest daughter and they are going to family counseling Does not want to see psych at this time Candidiasis of vagina 72 257602 B37.3 Per patient - will treat Tobacco user 879918750 Z 72.0 Very stressed right now - states that her oldest is going to school in [place] and then her youngest is causing her issues Muscle spa sm of cervical muscle of neck 1842615251 04 M62.838 Hasmukh has worked for her in the past Headache likely 2/2 muscle spasms and stress [id number] LEXI Cantu (Adult Med) [address] [place] [address] 07162-952 0 09/12/2016 15:13:36 09/13/2016 10:16:59 Backache 001352000 M54.9 Will refer to PT - advised to increase exercise, get in the water, and keep moving Insomnia 725686782 G47.0 0 d/t her possibly being manic at this time, discussed with her that she should re-establi sh with psych - she agreed with plan and will find psych Spasm of back muscles 20 9016234 M62.830 Will refer to PT - advised to increase exercise, get in the water, and keep moving Bipolar disorder 8984377 4 F31.9 Schedule an appointmen t with psych - either here or advised to contact her insurance to see if she could get into someone fast Tobacco user 023974744 Z 72.0 Advised to quit Gastroesop hageal reflux disease 963872687 K21.9 Advised to f/u with GI [id number] Dc Owens (EMBEDDED HARDWARE ENGINEER) [address] [place] [address] 95136[address]235 0 03/01/2017 16:33:47 03/02/2017 10:17:20 Gynecologic examination 39897627 Z01.411 Irregular intermenstrual bleeding 73243135 N92.1 [id number] LEXI Cantu (Adult Med) [address] [place] [address] 05157-314 0 05/14/2017 14:17:19 05/14/2017 16:38:16 Pain radiating to right leg 570702409 M79.604 lower back pain with radiation to posterior right leg - will begin with MRI at this time d/t chronicity and failed PT Hyperlipidemia 46328672 E78.5 Will recheck today Vitamin D deficiency 347 74669 E55.9 Will recheck vitamin d today [id number] Dc Owens (EMBEDDED HARDWARE ENGINEER) [address] [place] [address] 04395-390 0 08/09/2017 13:50:04 08/09/2017 15:25:57 History of endometrial ablation 9526589163 86887 Z98.890 History of female sterilization 709437836 Z92.0 Bipolar disorder 4398694 4 F31.9 Abnormal u terine bleeding 0324833064 9100 N93.9 failed medical management , failed minor surgical management , prior sterilizat ion. Desires definitive surgical therapy. Bladder mu scle dysfunction - overactive 196470752 N32.81 Tobacco user 974247579 Z 72.0 [id number] Dc Owens (EMBEDDED HARDWARE ENGINEER) [address] [place] [address] 03699-984 0 09/20/2017 14:54:35 09/20/2017 15:57:34 Postoperative visit 659090922 Z09 Pathology report showed adenomyosi s and hemorrhagi c ovarian cyst.Okay to go swimming. Advised no intercours e for 6 weeks. Bipolar disorder 7283514 4 F31.9 Tobacco user 639877592 Z 72.0 Depressive disorder 3548 9007 F32.9 Constipation 57445496 K5 9.00 Bladder mu scle dysfunction - overactive 114617846 N32.81 [id number] Dc Owens (EMBEDDED HARDWARE ENGINEER) [address] [place] [address] 98629-475 0 10/08/2017 15:46:14 10/09/2017 15:39:57 Postoperative visit 173147655 Z09 Pathology report showed adenomyosi s and hemorrhagi c ovarian cyst.Okay to go swimming. Advised no intercours e for 6 weeks. Constipation 09199429 K5 9.00 Bipolar disorder 6681347 4 F31.9 Tobacco user 931425472 Z 72.0 Depressive disorder 3548 9007 F32.9 [id number] Dc Owens (EMBEDDED HARDWARE ENGINEER) [address] [place] [address] 34051-203 0 11/26/2017 15:59:20 11/26/2017 16:59:37 Exposure to sexually transmissible disorder 362159960 Z20.2 Postsurgic al menopause 508895426 E89.41 Vaginal discharge 741142 006 N89.8 NORMAL [id number] Dc Owens (EMBEDDED HARDWARE ENGINEER) [address] [place] [address] 53824-529 0 12/31/2017 11:08:22 01/03/2018 11:47:32 Perimenopausal state 8643708729 60467 Z78.0 Vulvar vestibulitis 3083 3006 N94.810 Irritable bowel syndrome 94209804 K58.9 Exposure t o sexually transmissible disorder 999063642 Z20.2 [id number] MATT Cadena (Adult Med) [address] [place] [address] 40275-704 0 04/05/2018 14:00:15 04/08/2018 10:05:11 Chronic low back pain 743582416 M54.5 lower back pain with radiation to posterior right leg - will begin with MRI at this time d/t chronicity and failed PT Tobacco user 981170258 Z 72.0 advised to quit, patient not ready yet. Disorder of vitamin D 38 6106190 E56.9 [id number] MATT Cadena (Adult Med) [address] [place] [address] 18758-723 0 05/17/2018 15:24:51 05/20/2018 09:22:06 Tobacco user 781695056 Z72.0 advised to quit, patient three weeks smoke free. Acute otitis media 27762 03 H66.92 Neck pain 95106136 M54.2 [id number] Adrian Bryant MD [facility]ley (Adult Med) [address] [place] [address] 62072-339 0 06/27/2018 11:58:42 06/27/2018 12:56:56 Vitamin D deficiency 84345851 E55.9 Pain in left knee 345435 9094 36236 M25.562 Continue rest, ice. Apply heat in one Low back pain 934271166 M54.5 Neck pain 65398286 M54.2 [id number] Dc Cecilia Owens (EMBEDDED HARDWARE ENGINEER) [address] [place] [address] 75987-921 0 08/05/2018 14:56:10 08/06/2018 14:19:36 History of total hysterectomy 299605819 Z90.710 On ERT 1mg estradiol only. has not used in over 7 days. Bipolar disorder 9619283 4 F31.9 Fibrocysti c disease of breast 03561649 N60.19 Paraverteb ral muscle spasm 41581760 M62.830 Polycystic ovaries 33114 008 E28.2 Low back pain 926198885 M54.5 [id number] [facility] [address] [place] [address] 94200-054 0 09/26/2018 16:30:01 09/27/2018 11:42:28 Family history of coronary arteriosclerosis 668910583 Z82.49 Tobacco user 767530762 Z 72.0 Hyperlipidemia 90218157 E78.5 Pain in left knee 672632 9321 39106 M25.562 Continue rest, ice. Apply heat in one Gastroesop hageal reflux disease 142758257 K21.9 Vitamin D deficiency 347 49216 E55.9 [id number] Dc Owens (EMBEDDED HARDWARE ENGINEER) [address] [place] [address] 57294-354 0 12/16/2018 16:07:58 12/17/2018 12:33:17 Postsurgical menopause 161504233 E89.41 History of total hysterectomy 482165151 Z90.710 Dyspareunia 12055574 N94 .10 Encouraged patient to try lubricatio n ([place] liquid, Astroglide ). [id number] Dc Owens (EMBEDDED HARDWARE ENGINEER) [address] [place] [address] 0 12/31/2018 13:56:00 01/01/2019 12:35:17 Pruritus ani 50950228 L29.0 Exposure t o sexually transmissible disorder 253931466 Z20.2 Hemorrhoids 07948560 K64 .9 History of total hysterectomy 892832130 Z90.952 [id number] Dc Owens (EMBEDDED HARDWARE ENGINEER) [address] [place] [address] 0 03/19/2019 14:52:23 03/20/2019 12:23:36 Exposure to sexually transmissible disorder 105168827 Z20.2 Bacterial vaginosis 4197 66511 N76.0 Tobacco user 342702117 Z 72.0 History of total hysterectomy 796245379 Z90.860 [id number] Dc Owens (EMBEDDED HARDWARE ENGINEER) [address] [place] [address] 0 05/12/2019 10:16:50 05/13/2019 11:53:58 Exposure to sexually transmissible disorder 068454997 Z20.2 Fibromyalgia 213787525 M 79.7 Screening mammography 24 007218 Z12.31 Bipolar disorder 2426710 4 F31.9 [id number] Dc Owens (EMBEDDED HARDWARE ENGINEER) [address] [place] [address] 0 06/25/2019 09:11:39 06/25/2019 18:05:30 [id number] Dc Owens (EMBEDDED HARDWARE ENGINEER) [address] [place] [address] 0 07/09/2019 13:44:48 07/10/2019 09:08:12 Vulvitis 27489188 N76.2 used boric acid doucheiatr ogenic Fibromyalgia 961298602 M 79.7 [id number] MD Roman Yin (Adult Med) [address] [place] [address] 0 08/18/2019 15:35:47 08/19/2019 14:20:31 Spasm 25467168 R25.2 Fibromyalgia 296220588 M 79.7 Depressive disorder 3548 9007 F32.9 Anxiety 10118913 F41.9 [id number] MD Roman Yin (Adult Med) [address] [place] [address] 39253-922 0 01/19/2020 08:50:40 01/20/2020 13:03:04 Disorder of maxilla 154449136 K08.20 F/U with dentist Temporoman dibular joint disorder 87773810 M26.609 Consider use of other nsaid. Get other dental opinion [id number] MD Roman Yin (Adult Med) [address] [place] [address] 33314-757 0 03/01/2020 09:43:53 03/02/2020 09:30:55 Abnormal weight loss 020974911 R63.4 Abnormal t hyroid hormone 145880585 R94.6 Tachycardia 2142794 R00. 0 Tremor 54392884 R25.1 [id number] Dc Owens (EMBEDDED HARDWARE ENGINEER) [address] [place] [address] 18120-771 0 07/07/2020 08:14:08 07/13/2020 06:38:17 Screening mammography 38570639 Z12.31 [id number] MD Roman Yin (Adult Med) [address] [place] [address] 08952-301 0 09/29/2020 12:49:35 09/30/2020 07:38:01 Otitis externa 0288951 H60.92 [id number] NELI SIERRA (EMBEDDED HARDWARE ENGINEER) [address] [place] [address] 87777-896 0 10/13/2020 14:55:31 10/28/2020 12:34:54 Mass of right breast 5151401365 2634531 N63.10 -Lump in R breast x1 month, doubled in size in 2 days now with overlying erythema-L ast mammogram was 07/2020, unremarkab le except for small cysts in b/l breasts-Fa hallie hx of breast cancer in maternal aunt-Hx of dense breast tissue and benign cysts-Orde r for diagnostic mammogram and breast US given today Skin lesion 97227142 L98 .9 -Small 0.5cm macule on L breast with irregular borders-De rm referral sent today for skin check [id number] MD Roman Yin (Adult Med) [address] [place] [address] 43740-341 0 01/05/2021 15:27:48 01/11/2021 10:36:35 Gastroesophageal reflux disease 208049494 K21.9 Hyperlipidemia 30021814 E78.5 Irritable bowel syndrome 27665710 K58.9 Abnormal t hyroid hormone 118749137 R94.6 Hyperglycemia 97008926 R 73.9 Vitamin D deficiency 347 69549 E55.9 Popping se nsation in ear 664279095 H93.299 Pt to start cetirizine [id number] Juan Owens (EMBEDDED HARDWARE ENGINEER) [address] [place] [address] 03251-932 0 03/03/2021 09:48:33 03/11/2021 14:16:05 Venereal disease screening 323087318 Z11.3 Z72.89 Vaginal discharge 020109 006 N89.8 Patient concerned for candidiasi s. - no evidence of infection. Common use of wet-wipes. Denies intravagin al cleaning. Report history of Chronic BV. Also reports swelling and some pelvic pressure. Previously seen by PT and Urogynecol ogist. Mild anterior prolapse today. Encouraged follow up with previously [facility] care team. Pap up to date: 01/2017 = NILM, HPV neg. next pap 01/2022. [id number] MD Roman Yin (Adult Med) [address] [place] [address] 39481-809 0 03/15/2021 11:16:30 03/16/2021 13:35:31 History of SARS-CoV-2 9203628822 33690860 Z86.16 Will order REGEN-COV [id number] FERNANDO Gardner (Adult Med) [address] [place] [address] 29733-609 0 03/22/2021 10:14:04 03/22/2021 10:24:34 [id number] FERNANDO Gardner (Adult Med) [address] [place] [address] 79515-690 0 04/12/2021 15:22:46 04/12/2021 16:09:56 [id number] MD Roman Yin (Adult Med) [address] [place] [address] 25017-464 0 04/12/2021 16:57:19 04/15/2021 11:41:23 Tobacco dependence syndrome 43512142 F17.200 Discussed choosing specific start date after beginning wellbutrin SR [id number] FERNANDO Gardner (Adult Med) [address] [place] [address] 62419-057 0 05/16/2021 15:50:21 05/17/2021 09:23:08 [id number] MD Roman Yin (Adult Med) [address] [place] [address] 41495-588 0 08/11/2021 16:22:04 08/12/2021 11:21:58 Onychomycosis 953947614 B35.1 [id number] NELI SIERRA (EMBEDDED HARDWARE ENGINEER) [address] [place] [address] 75983-975 0 09/28/2021 15:08:36 09/30/2021 11:05:21 Acute vaginitis 76669548 N76.0 Will treat for vaginal candidiasi s due to history with Diflucan 150 mg. Nuswab completed today. Will treat other infections if indicated per results. RTC if symptoms persist. [id number] NELI SIERRA (EMBEDDED HARDWARE ENGINEER) [address] [place] [address] 91476-197 0 12/02/2021 16:30:35 12/15/2021 09:50:02 Gynecologic examination 28160560 Z01.419 Pelvic exam unremarkab le.-Cervic al cancer screening: Hysterecto [id number].-Di et/exercis e: Counseled regarding importance of physical activity, healthy diet and appropriat e calcium / vitamin D intake.- Return to clinic in 1 year Venereal d isease screening 812734543 Z11.3 Pt reporting intermitte nt vaginal swelling and dyspareuni a. PE unremarkab le. Follow up nuswab to rule out infection. Screening for malignant neoplasm of breast 863288492 Z12.31 Last breast imaging Oct 2020 and May 2021, BIRADS 2 with benign appearing cysts. Annual screening mammogram order provided. [id number] NELI SIERRA (EMBEDDED HARDWARE ENGINEER) [address] [place] [address] 14543-492 0 11/22/2022 10:45:49 11/29/2022 09:21:20 Multiple cysts of breast 912107265 N60.11 N60.12 Last imaging Sept 2021 with stable simple cysts in bilateral breasts, including stable right midline 11mm lesion at area of concern. New pea-sized lesion palpated on exam today in R breast, 6 o'clock. Will follow up with diagnostic imaging. Referral placed to breast surgeon to discuss management options. Cyst of left ovary [id number] abd/pelvis September 2022 with two left adnexal lesions measuring up to 37mm likely representi ng dominant follicles/ cysts. Will follow up with [facility] to further assess. [id number] NELI SIERRA (EMBEDDED HARDWARE ENGINEER) [address] [place] [address] 01/26/2023 15:30:23 01/31/2023 13:01:45 Cyst of left ovary [id number] N83.202 Pelvic abscess [id number] K65.1 Admitted to [facility] from 01/21-01/01 3 for severe LLQ abdominal pain found to be 4cm pelvic abscess on CT. s/p IV abx and compliant with PO Amoxicilli n. Persistent but improved LLQ pain. No fever, chills, peritoneal signs, and bruising. No hospital records on file, will obtain.-Or brenda [facility] to monitor-Fi winston antibiotic course-Dis cussed ER precaution s for sudden worsening pain [id number] MD Roman Yin (Adult Med) [address] [place] [address]78[address] 0 02/20/2023 12:03:18 02/27/2023 11:13:31 Pain in bilateral lower legs [id number] M79.661 M79.662 Will order doppler. Pt will f/u with her cardiologi st Pain [id number] R52 Chronic constipation 236 [id number] K59.09 F/u GI Ferritin l evel below reference range [id number] R77.8 [id number] NELI SIERRA (EMBEDDED HARDWARE ENGINEER) [address] [place] [address] 03/15/2023 10:50:42 04/03/2023 16:47:42 Hot sweats [id number] R61 Pt reports night sweats and hot flashes x2 weeks. Labs ordered to check hormone levels. Will f/u with patient. Increased frequency of urination [id number] R35.0 Increased frequency of urination. Denies dysuria [...] Escamilla Member ID Guarantor Name 12/02/2021 1 [facility] HOME CARE & GRIEVANCE MANAGER [facility] - OPEN ACCESS III (PPO) Tootie Gleason [id number] Tootie Gleason 11/22/2022 1 [facility] HOME CARE & GRIEVANCE MANAGER [facility] - OPEN ACCESS III (PPO) Tootie Gleason [id number] Tootie Gleason 01/26/2023 1 [facility] CARE & GRIEVANCE MANAGER [facility] - OPEN ACCESS III (PPO) Tootie Gleason [id number] Tootie Gleason 02/20/2023 1 [facility] HOME CARE & GRIEVANCE MANAGER [facility] - OPEN ACCESS III (PPO) Tootie Gleason [id number] Tootie Gleason 03/15/2023 1 [facility] HOME CARE & GRIEVANCE MANAGER [facility] - OPEN ACCESS III (PPO) Tootie Gleason [id number] Tootie Gleason Notes Date Note Type Note [...] Cardiology, Pulmonology, Endocrinology, Rheumatology, and Gastroenterology. In 2012, she had her gallbladder removed without relief. [...] psychiatric illnesses. NELI SIERRA Attn: Accounting,[address] [place], [address], [facility] 12/14/2021 15:54:17 11/22/2022 text/html 42yo F with [...] to cyst. NELI SIERRA Attn: Accounting,[address] [facility], [place], [address], [facility] 11/23/2022 14:33:56 01/26/2023 text/html 42 yo F with his tory of IBS, L ovarian cyst presents to the clinic for a hospital follow up. She was admitted at [facility] from 01/21-01/22 for LLQ abdominal pain found [...] and lesions. NELI SIERRA Attn: Accounting,[address] [facility], [place], [address], [facility] 01/31/2023 07:06:53 02/20/2023 text/html Pt here because of daily leg pain for the past three months. She has had leg pain in past but of lesser severity. She did see pain management about one month ago. She saw chiroptacter about two months ago but is unable to continue because of cost. Pt had also been seeing sawmill worker for problem associated with low ferritin.Pt was prescribed iron but is unable to tolerate oral iron. Pt has been working with GI specialist for chronic constipation. Adrian Bryant MD Attn: Accounting,[address] [facility], [place], [address], [facility] 02/20/2023 13:47:52 03/15/2023 text/html Tootie is a 42 y/o F with h/o hysterectomy here for a follow up. She reports going to the ER at [facility] for abdominal pain in late December and treated for pelvic abscess. She had follow up CT recently and is here to discuss the results. She has abdominal pain that she states is due to gastritis. She is not taking any medications other than occasional famotidine. She reports hot flashes [id number]. She reports waking up in the middle of the night recently with anxiety. Also reporting increased frequency of urination. Denies dysuria, hematuria, fevers, chills, n/v. NELI SIERRA Attn: Accounting,[address] [facility], [place], [address], [facility] 03/30/2023 17:31:48 OBGyn Episode Ob Episode Information Episode Created Date Number of Fetuses Patient Bloodtype Patient rh Status Prepregnancy Weight lbs Domestic Partner Domestic Partner Phone Father Name Optical Effects Layout Person Status 06/16/19 15 1 CLOSED Fetus Data First Name Last Name Admitted to NICU Weight (g) Sex Living Outcome Pediatric Complications Fetus ID Race Codes Race Delivery Type 3601.52 048 F Full Term 91957 Vaginal Benjie Calculation Initial Benjie Date Initial [...] Complications Tubal Sterilization Discharge Date Comments 0 [facility] Discharge Information Feeding Method Contraceptive Method Maternal HG B and HCT Levels Ob Episode Information Episode Created Date Number of Fetuses Patient Bloodtype Patient rh Status Prepregnancy Weight lbs Domestic Partner Domestic Partner Phone Father Name Optical Effects Layout Person Status 06/16/19 15 1 CLOSED Fetus Data First Name Last Name Admitted to NICU Weight (g) Sex Living Outcome Pediatric Complications Fetus ID Race Codes Race Delivery Type 2921.13 248 F Full Term 52012 Vaginal Benjie Calculation Initial Benjie Date Initial [...] Complications Tubal Sterilization Discharge Date Comments 8 [facility] counts include 234 beds at the [facility] Discharge Information Feeding Method Contraceptive Method Maternal HG B and HCT Levels
[2024-06-20 20:56] VITALS: BP 120/92; PULSE 93; RESP 15; TEMP 36.8; O2SAT 100
[2024-06-20 21:01] VITALS: BP 120/92; PULSE 91; PULSE 99; RESP 17; O2SAT 100
--- OUTSIDE RECORDS SUMMARY | 2024-06-20 21:16 | XMS_ITS | Referral Summary ---
Author Organization [address] Address [address] [place] [address] Care Team Providers Care Preparation Room Manager Name Role Phone Dc Brooks MD Unavailable [phone] Caity Sanabria NP Unavailable [phone] Pamela Parekh MD Primary Care Provider [phone] Encounters Date Type Department Care Team Description 04/16/2024 Telephone [facility] [address] [place] [address] Lashay Carney, RN from Last [...] 05/18/2021 Assessment & Plan (05/18/2021 3:13 PM SECURITY INTERN): I did request the chest x-ray from [facility] in [place]. I have also ordered another chest x-ray [...] 11/05/2019 Assessment & Plan (05/18/2021 3:11 PM SECURITY INTERN): The patient was once again encouraged to [...] complication Assessment & Plan (05/18/2021 3:11 PM SECURITY INTERN): The patient was given sample of Breztri [...] Trelegy. Assessment & Plan (06/04/2019 10:51 AM SECURITY INTERN): The patient did have significant improvement following bronchodilators. I will give her a trial of Symbicort 160/4.5 and albuterol MDI to see if this improves her symptoms. Shortness of breath 05/14/2019 Assessment & Plan (05/14/2019 8:43 AM SECURITY INTERN): The patient quit smoking 2 months ago and smoked up to 1 pack of cigarettes a day for 27 years. With her dyspnea on exertion, I will check full PFTs and a 6 minute walk test. Other chest pain 05/14/2019 Assessment & Plan (06/04/2019 10:52 AM SECURITY INTERN): I will hold off on a CT angiogram of the chest at this time since she felt like the chest pain improved after the nebulizer treatment. Assessment & Plan (05/14/2019 8:42 AM SECURITY INTERN): The patient has had a previous cardiac [...] on file Legal Sex Female 9:08 PM SECURITY INTERN Gender Identity Female 07/01/2021 12:01 PM CDT Sexual Orientation Straight 07/01/2021 12 :01 PM CDT Last Filed Vital Signs Vital Sign Reading Time Taken Comments Blood Pressure 112/79 09/04/2023 3:17 PM CDT Pulse 71 09/04/2023 3:17 PM CDT Temperature 36.5 C (97.7 F) 11/05/2019 10:41 AM CDT Respiratory Rate 18 05/18/2021 2:44 PM SECURITY INTERN Oxygen Saturation 98% 05/18/2021 2:44 PM SECURITY INTERN Inhaled Oxygen Concentration - - Weight 56.7 kg (125 lb) 02/14/2024 12:21 PM SECURITY INTERN Height 157.5 cm (5' 2 ) 02/14/2024 12:21 PM SECURITY INTERN Body Mass Index 22.86 02/14/2024 12:21 PM SECURITY INTERN Plan of Treatment Not on file Insurance [employer] OPEN ACCESS [employer] OPEN ACCESS Care Teams Preparation Room Manager Relationship Specialty Start Date End Date Pamela Parekh MD PCP - General Family Medicine 09/04/23 Dc Brooks MD Obstetrics and Gynecology 05/14/19 Caity Sanabria NP Nurse Practitioner Nurse Practitioner 01/12/22
--- OUTSIDE RECORDS SUMMARY | 2024-06-20 21:16 | XMS_ITS | Clinical Summary ---
Author Organization [facility] Address [address] [place] [address] Care Team Providers Care Jelly Filter Tender Name Role Phone Adrian Bryant MD Primary Care Provider Medications traMADol (ULTRAM) 50 MG tablet TAKE [...] patient's age to complete this topic Insurance [employer] OPEN ACCESS [facility] Care Teams Jelly Filter Tender Relationship Specialty Start Date End Date Adrian Bryant MD [address] [place] [address] PCP - General INTERNAL MEDICINE 01/11/22
--- OUTSIDE RECORDS SUMMARY | 2024-06-20 21:16 | XMS_ITS | Clinical Summary ---
Author Organization [address] Address [address] [place] [address] Care Team Providers Care Insurance Agency Sales Manager Name Role Phone Dc Brooks MD Unavailable Caity Sanabria NP Unavailable [phone] Pamela Parekh MD Primary Care Provider [phone] Allergies Active Allergy Reactions Criticality Noted Date [...] 05/18/2021 Assessment & Plan (05/18/2021 3:13 PM CEILING CLEANER): I did request the chest x-ray from [facility] in [place]. I have also ordered another chest x-ray [...] 11/05/2019 Assessment & Plan (05/18/2021 3:11 PM CEILING CLEANER): The patient was once again encouraged to [...] complication Assessment & Plan (05/18/2021 3:11 PM CEILING CLEANER): The patient was given sample of Breztri [...] Trelegy. Assessment & Plan (06/04/2019 10:51 AM CEILING CLEANER): The patient did have significant improvement following bronchodilators. I will give her a trial of Symbicort 160/4.5 and albuterol MDI to see if this improves her symptoms. Shortness of breath 05/14/2019 Assessment & Plan (05/14/2019 8:43 AM CEILING CLEANER): The patient quit smoking 2 months ago and smoked up to 1 pack of cigarettes a day for 27 years. With her dyspnea on exertion, I will check full PFTs and a 6 minute walk test. Other chest pain 05/14/2019 Assessment & Plan (06/04/2019 10:52 AM CEILING CLEANER): I will hold off on a CT angiogram of the chest at this time since she felt like the chest pain improved after the nebulizer treatment. Assessment & Plan (05/14/2019 8:42 AM CEILING CLEANER): The patient has had a previous cardiac [...] Type Department Care Team Description 04/16/[address] [facility] [address] [place] [address] Lashay Carney RN from Last [...] on file Legal Sex Female 9:08 PM CEILING CLEANER Gender Identity Female 07/01/2021 12:01 PM CDT Sexual Orientation Straight 07/01/2021 12 :01 PM CDT Obstetrics History Last Filed Vital Signs Vital Sign Reading Time Taken Comments Blood Pressure 112/79 09/04/2023 3:17 PM CDT Pulse 71 09/04/2023 3:17 PM CDT Temperature 36.5 C (97.7 F) 11/05/2019 10:41 AM CDT Respiratory Rate 18 05/18/2021 2:44 PM CEILING CLEANER Oxygen Saturation 98% 05/18/2021 2:44 PM CEILING CLEANER Inhaled Oxygen Concentration - - Weight 56.7 kg (125 lb) 02/14/2024 12:21 PM CEILING CLEANER Height 157.5 cm (5' 2 ) 02/14/2024 12:21 PM CEILING CLEANER Body Mass Index 22.86 02/14/2024 12:21 PM CEILING CLEANER Plan of Treatment Health Maintenance Due Date [...] patient's age to complete this topic Insurance [employer] OPEN ACCESS [employer] OPEN ACCESS [employer] OPEN ACCESS Care Teams Insurance Agency Sales Manager Relationship Specialty Start Date End Date Pamela Parekh MD PCP - General Family Medicine 09/04/23 Dc Brooks MD Obstetrics and Gynecology 05/14/19 Caity Sanabria NP Nurse Practitioner Nurse Practitioner 01/12/22
--- OUTSIDE RECORDS SUMMARY | 2024-06-20 21:16 | XMS_ITS | Encounter Summary ---
Author Organization [facility] Address [address] [place] [address] Care Team Providers Care Cafeteria Team Leader Name Role Phone Unavailable Primary Care Provider [...]
--- OUTSIDE RECORDS SUMMARY | 2024-06-20 21:16 | XMS_ITS | Clinical Summary ---
Author Organization [facility] Address [address] [place] [address] Phone Care Team Providers Care Medical Records Coordinator Name Role Phone Unavailable Primary Care Provider [...] cm (5' 2 ) 03/20/2023 2:43 PM CONTINUOUS PICKLING LINE PICKLER HELPER Body Mass Index 24.66 03/20/2023 2:43 PM CONTINUOUS PICKLING LINE PICKLER HELPER Plan of Treatment Health Maintenance Due Date [...] MAMMO BILAT DIAGNOSTIC Routine 04/10/2023 2:28 PM CONTINUOUS PICKLING LINE PICKLER HELPER from Last 3 Months or Most Recently Relevant to Health Maintenance Results * MAMMO BILAT DIAGNOSTIC (04/10/2023 2:28 PM CONTINUOUS PICKLING LINE PICKLER HELPER) Anatomical Region Laterality Modality Breast Bilateral Mammography David Baptiste MD MAMMO ORDERABLES Final Result from Last 3 Months or Most Recently Relevant to Health Maintenance Insurance [employer] O OPEN ACCESS [employer] O OPEN ACCESS
--- OUTSIDE RECORDS SUMMARY | 2024-06-20 21:16 | XMS_ITS | Clinical Summary ---
Author Organization [facility] Address [address] [place] [address] Care Team Providers Care Behavior Therapist Name Role Phone Adrian Bryant MD Primary Care Provider [phone] Source Comments [facility] Affiliates and Associated Physician Practices is amultiple site organization consisting of ambulatory clinics and hospital sitesin [place], [place], [place] and [place]. This disclosure is being madepursuant to the Care Everywhere program and may not contain all information available regarding this patient. Last updated 17.[facility] Allergies Active Allergy Reactions Criticality Noted Date [...] age to complete this topic Care Teams Behavior Therapist Relationship Specialty Start Date End Date Adrian Bryant MD [address] [place] [address] PCP - General 11/25/20
--- OUTSIDE RECORDS SUMMARY | 2024-06-20 21:16 | XMS_ITS | CONTINUITY OF CARE DOCUMENT ---
Author Name salima, salima Address Unknown Organization [facility] Address [address] [place] [address] Phone [phone] Care Team Providers Care Property Claims Manager Name Role Phone Sisi BALTAZAR, Amor Mahoney Unavailable [phone] YOANDY BALTAZAR, GERMAIN Champagne Unavailable [phone] VINOD BALTAZAR, CHELI Khanna Unavailable [phone] PROBLEMS Condition Status Date Provider Notes Family [...] In-person encounter Office Visit Amor Laird MD [facility] Cardiology examination - In-person encounter Office Visit Amor Laird MD [facility] - In-person encounter Office Visit Amor Laird MD [facility] - In-person encounter Office Visit Amor Laird MD [facility] Cardiology examination - In-person encounter Office Visit Benoit Cates MD [facility] - In-person encounter Office Visit Amor Laird MD [facility] - In-person encounter Office Visit Amor Laird MD [facility] Tobacco use - In-person encounter Office Visit Amor Laird MD [facility] CHEST PAIN - In-person encounter Office Visit Amor Laird MD [facility] CHEST PAINTobacco useAbnormal nuclear stress test - NL cardiac CT 09/2018 calcium score 0Palpitations - In-person encounter Office Visit Amor Laird MD [facility] Abnormal nuclear stress test - NL cardia c CT 09/2018 calcium score 0 - In-person encounter Office Visit Amor Laird MD [facility] HypercholesterolemiaCHEST PAIN-TYPE TO B E DETERMINEDSHORTNESS OF BREATHPALPITATIONSTobacco useBipolar disorderFamily History Premature CAD - In-person encounter Office Visit Laurence Hannon MD [facility] CHEST PAIN - In-person encounter Office Visit Laurence Hannon MD [facility] - In-person encounter Office Visit Laurence Hannon MD [facility] ANXIETY DISORDERDEPRESSIONHypercholesterolemia VITAL SIGNS Date Observation Value Provider Body Mass Index (Ratio) 23.26 kg/m2 Amor Laird MD oxygen saturation, oximetry 99 % Ariel Alvarenga blood pressure, cuff size regular Juan Luis wilson Alvarenga blood pressure, diastolic 87 mm[Hg] Juan Luis lemusn Alvarenga blood pressure, systolic 106 mm[Hg] Dali malin Alvarenga pulse rate 90 /min Juan [facility]select [facility] Alvarenga weight E&M 127.2 [lb_av] Juan Luisaron Alvarenga height E&M 62 [in_i] [facility] Body Mass Index (Ratio) 23.59 [...] blood pressure, diastolic 84 mm[Hg] Mi gurwinder Luebbering blood pressure, systolic 122 mm[Hg] Manuel tonja Luebbering oxygen saturation, oximetry 98 % Cortney Wynn respiratory rate E&M 16 /min Cece Wynn pulse rate 75 /min Cortney bray weight E&M 125 [lb_av] Cortney bray height E&M 62 [in_i] Cortney bray Body Mass Index (Ratio) 22.86 kg/m2 Juan hoffman Rafael pulse rate 90 /min Gabino [facility] erg blood pressure, diastolic 86 mm[Hg] Al duglas Rafael blood pressure, systolic 124 mm[Hg] Sridevi dao Rafael weight E&M 125 [lb_av] Gabino [facility] erg height E&M 62 [in_i] [facility] erg Body Mass Index (Ratio) 25.42 kg/m2 Juan dalton Rafael blood pressure, diastolic 88 mm[Hg] Ch astity Vik blood pressure, systolic 103 mm[Hg] Randa stity Vik oxygen saturation, oximetry 98 % [facility] Vik pulse rate 98 /min [facility] Vik respiratory rate E&M 18 /min Chastit y Vik weight E&M 139 [lb_av] [facility] height E&M 62 [in_i] [facility] Body Mass Index (Ratio) 24.69 kg/m2 Juan [facility] pulse rate 96 /min Gabino [facility] [email or web address] blood pressure, diastolic 78 mm[Hg] Al [facility]Med[facility] blood pressure, systolic 116 mm[Hg] [facility]ridevi [facility] weight E&M 135 [lb_av] Gabino [facility] [email or web address] height E&M 62 [in_i] [facility] erg Body Mass Index (Ratio) 25.05 [...] pressure, diastolic, left arm 78 mm [Hg] [facility] blood pressure, systolic, left arm 116 mm [Hg] [facility] blood pressure, diastolic, right arm 70 m m[Hg] [facility] blood pressure, systolic, right arm 116 m m[Hg] [facility] blood pressure, resting No [facility] [...] Medel respiratory rate E&M 16 /min Ara Medle weight E&M 128.25 [lb_av] Patriceaugusto Bernard an [...] Interpretation Location LDL cholesterol, serum 130 mg/dL [facility] LDL cholesterol, serum 174 mg/dL [facility] alanine aminotransferase (SGPT), serum 17 1/L [...] LinkLogic <200 High platelet count 254 10*3/uL Patriceoro valley hospitalobdulio Montes hematocrit, blood 40.6 % [facility] international normalized ratio (INR) 1.0 [facility] platelet count 230 10*3/uL Patriceoro [facility] hospitalobdulio Montes hematocrit, blood 39.9 % Kathia Montes LDL cholesterol, serum 140 mg/dL [facility] cholesterol, serum 206 mg/dL Kathia Montes [...] ORAL TABLET completed one daily - Gabino [facility] SYMBICORT 160-4.5 MCG/ACT INHALATION AEROSOL completed Two puffs twice a day - Gabino [facility] NORTRIPTYLINE HCL 25 MG ORAL CAPSULE completed One capsule daily - Gabino [facility] NIASPAN 1000 MG ORAL TABLET EXTENDED RELEASE completed 2 tablets daily - Gabino [facility] CRESTOR 40 MG ORAL TABLET completed ONE TAB. DAILY - Gabino [facility] CYCLOBENZAPRINE HCL 10 MG ORAL TABLET completed One tablet at bedtime as needed - Gabino [facility] PREMARIN TABLET completed Take 1 tab twice a week - Gabino [facility] NAPROXEN 500 MG ORAL TABLET completed Take 1 tab twice daily as needed - Gabino [facility] EVENING PRIMROSE OIL 1000 MG ORAL CAPSULE completed Take 1 tab daily in evening time - [facility] VITAMIN E 400 UNIT ORAL TABLET completed Take 1 tab twice daily - [facility] VITAMIN D3 16024 UNIT ORAL TABLET completed TAke 1 tab [...] E&M revi ewed - no changes required Yeiska Sinclair physical exercise, frequency, days per week no Cortney Wynn caffeine use, averag e drinks per day 1+ Cortney Wynn smoking/tobacco cess ation, patient education and counseling yes Cortney Wynn smoking, year quit 2019 Cortney Wynn number of years as a smoker 10+ Cortney Wynn smoking history, tot al pack/day 1 Cortney Luebbering cigarette use yes Cortney Doty carmine smoking status Current every day smoker Denzel srivastava Wynn social history reviewed E&M revi ewed - no changes required [facility] social history E&M Smoking Histo ry: P karmen currently smokes every day. P karmen has been counseled to quit. [facility] smoking/tobacco cess ation, patient education and counseling yes [facility] physical exercise, frequency, days per week no [facility] caffeine use, averag e drinks per day 1+ [facility] smoking, year quit 2019 [facility] number of years as a smoker 10+ [facility] smoking history, tot al pack/day 1 [facility] cigarette use yes [facility] smoking status Current every day smoker A wes [facility] social history reviewed E&M revi ewed - no changes required [facility] physical exercise, frequency, days per week [...] P karmen is a former smoker. Gabino [facility] social history reviewed E&M revi ewed - no changes required [facility] smoking, year quit 2018 [facility] physical exercise, frequency, days per week no [facility] caffeine use, averag e drinks per day 1+ [facility] number of years as a smoker 10+ [facility] smoking history, tot al pack/day 1 [facility] cigarette use yes Gabino [facility] smoking status Former smoker Gabino Baird banner alcohol use no Amor Laird MD social [...] karmen has been counseled to quit. Gabino [facility] social history reviewed E&M revi ewed [...] physical exercise, frequency, days per week no [facility] caffeine use, averag e drinks per day yes [facility] alcohol use, average drinks per day social basis only [facility] number of years as a smoker 10 years or m ore [facility] smoking status Smoker [facility] caffeine use, averag e drinks per [...] RN FAMILY HISTORY Family Member Condition Mother [place] female <65 Maternal Grandmother Family History of C oronary Artery Disease: Maternal Grandfather Family History of C oronary Artery Disease: Uncle Family History of Co ronary Artery Disease: Aunt Family History of Co ronary Artery Disease: Mother Family History Coron narayan Heart Disease female < 65: INSURANCE PROVIDERS Payer name Policy type / Coverage type Ca red green party ID Asker Other [id number] ADVANCE DIRECTIVES Name Date DISCUSSED - NO DECISION MADE TREATMENT PLAN Date Name Performer [id number],B, No CP or SOB Her updated medication list for this problem includes: Metoprolol Tartrate 25 Mg Tablet (Metoprolol tartrate) ..... 1/2 tablet twice a day Juanpablo Sofie [id number],B,L DL 96 on Praluent. will continue current meds. Cannot tolerate statins. Her updated medication list for this problem includes: Praluent Pen 150 Mg/ml Pen Injector (Alirocumab) ..... Inject 1 pen under the skin every 2 weeks Juanpablo Carrizales [id number],S,I ntolerant of statins. F balwinder on Zetia. R emains very high (LDL 169). W ill send script for Repatha. Benoit Cates MD [id number],S, Benoit mesa MD [id number],S, Benoit mesa MD [id number],S,I ntolerant of statins. F balwinder on Zetia. R emains very high (LDL 169). Benoit Cates MD [id number],S,I nappropriate sinus tach. T ry low dose BB. Benoit Cates MD [id number],S, P t quit smoking in 03/2019. Amor Laird MD [id number],C, LDL is 180 on Zetia. She cannot [...] tablet once a day Amor Laird MD [id number],C,T he pt continues to have episodes of tachycardia with mild exertion. We discussed trying low dose Metoprolol she prefers to hold off at this time. L Amor Laird MD [id number],C,T he pt continues to have episodes of [...] nappropriate sinus tach. [facility] Yoandy Platter Cardiology: H er updated medication list for [...] She had a recent CP admission and [place] was ruled out. Stress test in the summer was normal. We discussed ILR and she will consider it further after GI workup is complete. She will contact us after her GI workup. Gabino [facility] TeleHealth:Continues to have palpitations. She had a recent CP admission and [place] was ruled out. Stress test in the summer was normal. We discussed ILR and she will consider it further after GI workup is complete. Gabino [facility] Cardiology:She has b een on Zetia [...] Release (Niacin (antihyperlipidemic)) ..... 2 tablets daily [facility] Cardiology:Event mon itor showed no evidence of arrhythmia. [facility] Cardiology:Complains of more episodes of left arm and chest discomfort. Had an abnormal stress test last year but CT calcium score was 0. She is reluctant to have cardiac cath and prefers to schedule a stress test. [facility] Cardiology:Complains of more episodes of left arm and chest discomfort. Had an abnormal stress test last year but CT calcium score was 0. She is reluctant to have cardiac cath and prefers to schedule a stress test. [facility] TeleHealth:She was s tarted on Crestor [...] 57 (06/12/2019) LDL: 174 (06/12/2019) TRI (06/12/2019) [facility] TeleHealth:Pt quit smoking in . [facility] TeleHealth:Had an ep isode of palpitations and had to go to the ER. Will obtain telesentry. [facility] Cardiology follow up :Advised ag clairen to quit. [facility] Cardiology follow up :CardioIQ lipid panel results are pending. [facility] Cardiology follow up :No recent chest pain. Myoview scan showed mild septal wall ischemia however CT coronary calcium score was 0. Will monitor her symptoms. [facility] Cardiology New Patie nt :Orders: C ardioIQ Advanced Lipid Panel with Inflammation ([facility]) (47133) [facility] Cardiology New Patie nt :Orders: E KG (CPT-40780) C omplete Echo (CPT-40520) S tress Exercise Cardiolite (CPT-08913) C T, Coronary Calcium Score (CPT-16478) [facility] Cardiology New Patie nt :Pt was advised to quit. Tried Chantix in the past. Gabino Hall follow up Laurence Hannon MD follow up Laurence Hannon MD follow up: O rders: E KG (CPT-95087) Laurence Hannon MD follow up: T he following medications were removed from the medication list: Pravastatin Sodium 20 Mg Tabs (Pravastatin sodium) ..... One tab. daily BP today: 126/70 Prior BP: 116/81 (11/06/2011) C HOL: 206 (10/03/2011) LDL: 140 (10/03/2011) Laurence Hannon MD follow up: O rders: E KG (CPT-41143) BP today: 126/70 Prior BP: 116/81 (11/06/2011) [...]
--- NOTE | 2024-06-20 21:28 | PC.NURSE ---
ok to hold aspirin per edp.
[2024-06-20 21:30] VITALS: BP 109/81; PULSE 82; RESP 20; O2SAT 97
[2024-06-20 21:31] LABS: Basophils Absolute Auto 0.1 K/mm3 (0.0-0.1); Basophils Percent Auto 0.8 % (0.2-1.2); Eosinophils Percent Auto 0.4 % (0-4.4); Hematocrit 41.9 % (37.0-47.0); Hemoglobin 14.3 g/dL (12.0-15.0); Immature Granulocyte Absolute 0.03 K/mm3 (0.00-0.031); Immature Granulocyte Percent A 0.4 % (0-0.5); Lymphocytes Absolute Auto 2.42 K/mm3 (0.9-3.2); Lymphocytes Percent Auto 33.3 % (18.3-44.2); Mean Corpuscular HGB Conc 34.1 g/dl (32-36); Mean Corpuscular Hemoglobin 29.4 pg (26-34); Mean Corpuscular Volume 86.2 fl (80-100); Mean Platelet Volume 10.3 fl (7.4-10.4); Monocytes Absolute Auto 0.7 K/mm3 (0.1-0.6); Neutrophils Absolute Auto 4.1 K/mm3 (1.3-6.7); Neutrophils Percent Auto 56.1 % (45.5-73.1); Platelet Count Result 291 k/mm3 (150-375); Red Blood Count 4.86 M/mm3 (4.2-5.4); Red Cell Distribution Width 12.8 % (11.5-14.5); White Blood Count 7.3 K/mm3 (4.5-10.0)
[2024-06-20 21:42] LABS: Alanine Aminotransferase 32 U/L (6-35); Albumin Level 4.4 g/dL (3.5-5.1); Alkaline Phosphatase 66 U/L (38-126); Anion Gap 10 mmol/L (4-12); Aspartate Amino Transferase 27 U/L (14-36); Bilirubin,Total 0.3 mg/dL (0.2-1.3); Blood Urea Nitrogen 12 mg/dL (7-17); Calcium 9.4 mg/dL (8.4-10.2); Carbon Dioxide 25 mmol/L (22-30); Chloride 103 mmol/L (98-107); Estimated CRCL calculation 45 ml/min; Estimated Glomerular Filt Rate 54; Glucose 138 mg/dL (65-110); Lipase 108 U/L (23-300); Potassium 3.8 mmol/L (3.4-5.0); Sodium 138 mmol/L (137-145)
[2024-06-20 21:46] LABS: Prothrombin Time 13.1 Seconds (11.1-14.7)
[2024-06-20 21:47] LABS: Partial Thromboplastin Time 35.1 Seconds (22.3-36.8)
[2024-06-20 21:53] LABS: Troponin I < 0.012 ng/mL (0.000-0.034)
--- NOTE | 2024-06-20 22:24 | PC.NURSE ---
TSHR unable to be added on due to no red top tube. patient to CT at this time. will draw upon her return.
--- NOTE | 2024-06-20 22:25 | ED_ITS ---
HPI - Chest Pain General Chief Complaint: Chest Pain Stated Complaint: chest pain Time Seen by Provider: 06/20/24 21:03 History of Present Illness HPI narrative: Patient is a 43-year-old female who presents to the ER with multiple medical complaints. She reports she has had headache for approximately a week, accompanied by dizziness and runny nose. She also endorses leg cramps started yesterday. Patient reports she started on hormone replacement approximately 1 month ago by her OBGYN. She endorses a history of GI issues and endorses daily cigarette smoking. Patient also endorses chest pain with that radiates of her left arm and to her left shoulder/back, along with intermittent shortness of breath. She reports she was recently diagnosed with the UTI and has been on Macrobid for the past 5 days. Patient denies congestion, recent fevers, neck stiffness, saddle anesthesia, mastoid tenderness. Related Data Home Medications ?Medication ?Instructions ?Recorded ?Confirmed ?Last Taken ?Type albuterol sulfate 90 mcg/actuation 2 puff inhalation PRN PRN 08/02/23 04/04/24 Unknown History aerosol inhaler Shortness Of Breath Or Wheezing pantoprazole 40 mg granules 40 mg PO DAILY 04/04/24 04/04/24 Unknown History delayed-release for susp in packet (Protonix) Allergies Allergy/AdvReac Type Severity Reaction Status Date / Time hydromorphone (From Dilaudid) Allergy Mild Palpitation Verified 06/20/24 21:00 s pravastatin Allergy Mild Palpitation Verified 06/20/24 21:00 s codeine AdvReac Mild Nausea Verified 06/20/24 21:00 Review of Systems 2 Review of Systems: All systems reviewed & are unremarkable except as noted in HPI and below PMFSH Past Medical History Medical History Fibromyalgia Anxiety SELINA (obstructive sleep apnea) IBS (irritable bowel syndrome) GERD (gastroesophageal reflux disease) Asthma Surgical History Surgical History History of left oophorectomy History of partial hysterectomy Family History Family History Other Depression Anxiety Heart disease Grandparent Depression Anxiety Heart disease Grandparent Cerebrovascular accident Social History Social History Smoking packs per day: 1 Smoking cigarettes per day: 20.0 Years smoked: 22 Smoking pack-years: 22.00 Smoking status: Current every day smoker Tobacco type: cigarettes and e-cigarettes/vaping Second hand tobacco smoke exposure: No Alcohol intake: never Substance use: never Substance use type: does not use Do You Feel Safe in your Home?: Yes Lack of Transportation: No Lack of Food: Never True Current Housing: I Have Housing Concerned About Future Housing: No Difficulty Paying Gas/Electric Bills: No Difficulty Paying for Meds: No Currently Unemployed: No Education: High School Diploma/GED Difficulty w/ Childcare or Family Care: No Living arrangements: with family Spiritual care concerns: No Exam 2 Narrative: GENERAL: Well appearing, well-nourished, non-toxic, in no acute distress. HEAD: Normocephalic, atraumatic. NECK: Supple. No adenopathy, no masses. RESPIRATORY: Airway patent, respirations nonlabored. Clear to auscultation bilaterally, no rales, rhonchi, wheezing. CARDIOVASCULAR: Regular rate and rhythm without murmurs, rubs, or gallops. Peripheral pulses 2+ and equal bilaterally. ABDOMINAL: Soft, nontender, nondistended, no hepatosplenomegaly. Normoactive BS. MUSCULOSKELETAL: Moves all extremities. Strength/ROM intact without gross deformities. SKIN: Warm, dry, normal color. No rashes. NEURO: A&O X3. Speech clear. Cranial nerves II-XII intact. No ataxic movements. PSYCHIATRIC: Appropriate mood and affect. Normal interaction. Course Vital Signs Vital signs: Vital Signs Temperature 36.8 C 06/20/24 20:56 Pulse Rate 93 06/20/24 20:56 Respiratory Rate 15 06/20/24 20:56 Blood Pressure 120/92 H 06/20/24 20:56 Pulse Oximetry 100 06/20/24 20:56 Temperature 36.8 C 06/20/24 20:56 Pulse Rate 91 06/20/24 21:01 Respiratory Rate 15 06/20/24 20:56 Blood Pressure 120/92 H 06/20/24 20:56 Pulse Oximetry 100 06/20/24 20:56 MDM - Chest Pain MDM Narrative Medical decision making narrative: Patient is a 43-year-old female who presents to the ER with multiple medical complaints. She reports she has had headache for approximately a week, accompanied by dizziness and runny nose. She also endorses leg cramps started yesterday. Patient reports she started on hormone replacement approximately 1 month ago by her OBGYN. She endorses a history of GI issues and endorses daily cigarette smoking. Patient also endorses chest pain with that radiates of her left arm and to her left shoulder/back, along with intermittent shortness of breath. She reports she was recently diagnosed with the UTI and has been on Macrobid for the past 5 days. Patient denies congestion, recent fevers, neck stiffness, saddle anesthesia, mastoid tenderness. Labs Ordered: CBC, CMP, drug, D-dimer, UDS, lipase, UA, TSH, troponin Imaging Ordered: Chest x-ray, brain CT scan Medications Ordered: Reglan IV, Benadryl IV, Decadron IV, 1 L saline IV bolus, GI cocktail (per pt's request), Toradol 15mg IV Results: Patient's chest x-ray indicates The cardiomediastinal silhouette is unremarkable. The lungs are clear. Visualized osseous structures and soft tissues are unremarkable. Patient's head CT scan indicates The ventricles are normal in size, shape and position. There is no mass, mass effect or midline shift. There is no abnormal extra-axial fluid collection or intracranial hemorrhage. Visualized paranasal sinuses are clear. The mastoid air cells are well aerated. No acute displaced fractures within the overlying cranium. Diagnosis: Atypical chest pain, migraine headache, GERD Risks: HEART score: low risk HEART Score for Major Cardiac Events from [email or web address] on 06/21/2024 All calculations should be rechecked by clinician prior to use RESULT SUMMARY: 1 points Low Score (0-3 points) Risk of MACE of 0.9-1.7%. INPUTS: History ?> 0 = Slightly suspicious EKG ?> 0 = Normal Age ?> 0 = <45 Risk factors ?> 1 = 1-2 risk factors Initial troponin ?> 0 = <=Normal limit Patient Education/Shared MDM: Results shared with patient. She endorses improvement in her headache following headache cocktail and chest pain relief following GI cocktail. 0130- Pt now endorses a sore throat and postnasal drainage, so she will be swabbed for COVID/RSV/flu. The results came back negative. Pt will be given Toradol for pain control prior to discharge. She is also requesting another dose of Diflucan d/t an ongoing yeast infection. Patient strongly advised to maintain hydration status upon discharge and follow- up with her PCP as soon as possible. She will be discharged home with a prescription for Flonase and steroids. Strict return precautions provided. Patient verbalized understanding is in agreement with plan. Vital signs stable at time of discharge. All questions answered. Differential Diagnosis Differential diagnosis: Likely atypical chest pain and other (migraine headache, COVID/flu/RSV) Lab Data Attestation: I reviewed the patient's lab results. 06/20/24 21:05 06/20/24 21:05 Labs: Lab Results 06/20/24 06/20/24 06/20/24 Range/Units 21:05 22:28 22:37 WBC 7.3 (4.5-10.0) K/mm3 RBC 4.86 (4.2-5.4) M/mm3 Hgb 14.3 (12.0-15.0) g/dL Hct 41.9 (37.0-47.0) % MCV 86.2 (80-100) fl MCH 29.4 (26-34) pg MCHC 34.1 (32-36) g/dl RDW 12.8 (11.5-14.5) % Plt Count 291 (150-375) k/mm3 MPV 10.3 (7.4-10.4) fl Immature Gran % (Auto) 0.4 (0-0.5) % Neut % (Auto) 56.1 (45.5-73.1) % Lymph % (Auto) 33.3 (18.3-44.2) % [place] % (Auto) 9.0 H (2.6-8.5) % Eos % (Auto) 0.4 (0-4.4) % Baso % (Auto) 0.8 (0.2-1.2) % Lymph # (Auto) 2.42 (0.9-3.2) K/mm3 [place] # (Auto) 0.7 H (0.1-0.6) K/mm3 Eos # (Auto) 0.0 (0-0.3) K/mm3 Baso # (Auto) 0.1 (0.0-0.1) K/mm3 Abs Immat Gran (auto) 0.03 (0.00-0.031) K/mm3 Absolute Neuts (auto) 4.1 (1.3-6.7) K/mm3 Absolute Nucleated RBC 0.000 (0.0-0.012) K/mm3 Nucleated RBC % 0.0 (0.0-0.2) % PT 13.1 (11.1-14.7) Seconds INR 1.0 APTT 35.1 (22.3-36.8) Seconds D-Dimer < 0.27 (<0.48) ug/mL Sodium 138 (137-145) mmol/L Potassium 3.8 (3.4-5.0) mmol/L Chloride 103 (98-107) mmol/L Carbon Dioxide 25 (22-30) mmol/L Anion Gap 10 (4-12) mmol/L BUN 12 (7-17) mg/dL Creatinine 1.10 H (0.7-1.0) mg/dL Estim Creat Clear Calc 45 ml/min Estimated GFR 54 L (59 - ) Glucose 138 H (65-110) mg/dL Calcium 9.4 (8.4-10.2) mg/dL Total Bilirubin 0.3 (0.2-1.3) mg/dL AST 27 (14-36) U/L ALT 32 (6-35) U/L Alkaline Phosphatase 66 (38-126) U/L Troponin I < 0.012 (0.000-0.034) ng/mL Total Protein 7.0 (6.3-8.2) g/dL Albumin 4.4 (3.5-5.1) g/dL Lipase 108 (23-300) U/L TSH (Reflex) 0.959 (0.465-4.68) uIU/mL Urine Color Yellow (Yellow) Urine Appearance Clear (Clear) Urine pH 7.5 (5.0-9.0) Ur Specific [place] 1.006 (1.001-1.035) Urine Protein Negative (Negative) mg/dL Urine Glucose (UA) Negative (Negative) mg/dL Urine Ketones Negative (Negative) mg/dL Ur Blood (Man) Negative (Negative) Urine Nitrate Negative (Negative) Urine Bilirubin Negative (Negative) Urine Urobilinogen 0.2 (<2.0) mg/dL Leukocyte Esterase Rfl Negative (Negative) JOSSELIN/UL Urine Opiates Screen Negative (Negative) Urine Methadone Screen Negative (Negative) Ur Barbiturates Screen Negative (Negative) Ur Phencyclidine Scrn Negative (Negative) Ur Amphetamine Screen Negative (Negative) U Benzodiazepines Scrn Negative (Negative) Urine Cocaine Screen Negative (Negative) U Cannabinoids Screen Negative (Negative) Influenza A (RT-PCR) (Negative) Influenza B (RT-PCR) (Negative) RSV (RT-PCR) (Negative) SARS-CoV-2 RNA (RT-PCR) (Negative) 06/21/24 06/21/24 Range/Units 00:08 01:28 WBC (4.5-10.0) K/mm3 RBC (4.2-5.4) M/mm3 Hgb (12.0-15.0) g/dL Hct (37.0-47.0) % MCV (80-100) fl MCH (26-34) pg MCHC (32-36) g/dl RDW (11.5-14.5) % Plt Count (150-375) k/mm3 MPV (7.4-10.4) fl Immature Gran % (Auto) (0-0.5) % Neut % (Auto) (45.5-73.1) % Lymph % (Auto) (18.3-44.2) % [place] % (Auto) (2.6-8.5) % Eos % (Auto) (0-4.4) % Baso % (Auto) (0.2-1.2) % Lymph # (Auto) (0.9-3.2) K/mm3 [place] # (Auto) (0.1-0.6) K/mm3 Eos # (Auto) (0-0.3) K/mm3 Baso # (Auto) (0.0-0.1) K/mm3 Abs Immat Gran (auto) (0.00-0.031) K/mm3 Absolute Neuts (auto) (1.3-6.7) K/mm3 Absolute Nucleated RBC (0.0-0.012) K/mm3 Nucleated RBC % (0.0-0.2) % PT (11.1-14.7) Seconds INR APTT (22.3-36.8) Seconds D-Dimer (<0.48) ug/mL Sodium (137-145) mmol/L Potassium (3.4-5.0) mmol/L Chloride (98-107) mmol/L Carbon Dioxide (22-30) mmol/L Anion Gap (4-12) mmol/L BUN (7-17) mg/dL Creatinine (0.7-1.0) mg/dL Estim Creat Clear Calc ml/min Estimated GFR (59 - ) Glucose (65-110) mg/dL Calcium (8.4-10.2) mg/dL Total Bilirubin (0.2-1.3) mg/dL AST (14-36) U/L ALT (6-35) U/L Alkaline Phosphatase (38-126) U/L Troponin I < 0.012 (0.000-0.034) ng/mL Total Protein (6.3-8.2) g/dL Albumin (3.5-5.1) g/dL Lipase (23-300) U/L TSH (Reflex) (0.465-4.68) uIU/mL Urine Color (Yellow) Urine Appearance (Clear) Urine pH (5.0-9.0) Ur Specific [place] (1.001-1.035) Urine Protein (Negative) mg/dL Urine Glucose (UA) (Negative) mg/dL Urine Ketones (Negative) mg/dL Ur Blood (Man) (Negative) Urine Nitrate (Negative) Urine Bilirubin (Negative) Urine Urobilinogen (<2.0) mg/dL Leukocyte Esterase Rfl (Negative) JOSSELIN/UL Urine Opiates Screen (Negative) Urine Methadone Screen (Negative) Ur Barbiturates Screen (Negative) Ur Phencyclidine Scrn (Negative) Ur Amphetamine Screen (Negative) U Benzodiazepines Scrn (Negative) Urine Cocaine Screen (Negative) U Cannabinoids Screen (Negative) Influenza A (RT-PCR) Negative (Negative) Influenza B (RT-PCR) Negative (Negative) RSV (RT-PCR) Negative (Negative) SARS-CoV-2 RNA (RT-PCR) Negative (Negative) Imaging Data Attestation: I personally reviewed and interpreted this imaging study as follows: Radiologist's impression: Impressions Chest X-Ray 06/20/24 21:26 IMPRESSION: No focal infiltrate or effusion. Head CT 06/20/24 22:36 Impression: No acute intracranial hemorrhage or suspicious mass effect. Discharge Plan Discharge Clinical Impression: Allergies, Headache, Atypical chest pain, GERD (gastroesophageal reflux disease) Patient Disposition: Home, Self-Care Condition: Stable Instructions: Antibiotic Form, GERD (Gastroesophageal Reflux Disease) (ED), Acute Headache (ED), Allergies (ED), Noncardiac Chest Pain (ED) Additional Instructions: Please return to the ER with any worsening symptoms. Follow-up with primary care provider as soon as possible. Take all medications as prescribed, including regularly scheduled medications. Patient Language: Prydeinig Prescriptions: New fluticasone propionate [Flonase Allergy Relief] 50 mcg/actuation spray,suspension 1 spray intranasal BID Qty: 16 0RF Rx Instructions: administer into each nostril prednisone 20 mg tablet 20 mg PO BID Qty: 10 0RF fluconazole [Diflucan] 100 mg tablet 100 mg PO DAILY Qty: 1 0RF No Action pantoprazole [Protonix] [address] for susp in packet 40 mg PO DAILY albuterol sulfate 90 mcg/actuation HFA aerosol inhaler 2 puff INHALATION PRN PRN (Reason: Shortness Of Breath Or Wheezing) fluconazole 150 mg tablet 150 mg PO DAILY Qty: 1 0RF Rx Instructions: Take after you complete your antibiotics Follow-up/Referrals: Pamela Parekh MD [Primary Care Provider] - Stand Alone Forms: Work/School Release IP Time of Disposition: 02:34
[2024-06-20 22:35] VITALS: BP 116/84; PULSE 69; RESP 14; O2SAT 100
[2024-06-20 22:37] LABS: Add Urine Microscopic? NO; Appearance Urine Clear (Clear); Bilirubin Urine Negative (Negative); Blood Urine Negative (Negative); Color Urine Yellow (Yellow); Glucose Urine UA Negative (Negative); Ketones Urine Negative (Negative); Leukocyte Esterase Ur Negative LEU/UL (Negative); Nitrate Urine Negative (Negative); Protein Urine Negative (Negative); Specific Grav Ur 1.006 (1.001-1.035); Urobilinogen Urine 0.2 mg/dL (<2.0); pH Urine 7.5 (5.0-9.0)
[2024-06-20 22:46] VITALS: BP 110/80; PULSE 75; RESP 21; O2SAT 98
[2024-06-20] MEDS: METOCLOPRAMIDE HCL INJ 10 MG/2 ML VIAL IV PUSH (22:49)
[2024-06-20] MEDS: SODIUM CHLORIDE 0.9% IV 1,000 ML 999 ML IV CONT (22:49)
[2024-06-20] MEDS: diphenhydrAMINE HCl INJ 50 MG/ML VIAL 25 MG IV PUSH (22:49)
[2024-06-20] MEDS: BELLADONNA ALK/PHENOB ELIX 10 ML, MAG HYDROX/ALUMINUM HYD/SIMETH 30 ML, LIDOCAINE 2% VI... PO (22:50)
[2024-06-20] MEDS: SODIUM CHLORIDE 0.9% IV 200 ML (22:51)
[2024-06-20] MEDS: dexAMETHasone SOD PHOS INJ 10 MG/ML 1 ML VIAL IV PUSH (22:54)
[2024-06-20 22:56] LABS: Barbiturate Screen Urine Negative (Negative); Benzodiazepines Screen Urine Negative (Negative)
[2024-06-20 22:57] LABS: Amphetamine Screen Urine Negative (Negative); Cannabinoid Screen Urine Negative (Negative); Cocaine Screen Urine Negative (Negative); Methadone Screen Urine Negative (Negative); Opiate Screen Urine Negative (Negative); Phencyclidine Screen Urine Negative (Negative)
[2024-06-20 23:17] LABS: D Dimer < 0.27 ug/mL (<0.48)
[2024-06-20 23:31] LABS: Thyroid Stimulating Hormone Reflex 0.959 uIU/mL (0.465-4.68)
[2024-06-20 23:46] VITALS: BP 91/66; PULSE 78; RESP 16; O2SAT 97
[2024-06-21 00:36] LABS: Troponin I < 0.012 ng/mL (0.000-0.034)
[2024-06-21 01:00] VITALS: BP 102/72; PULSE 78; RESP 16; O2SAT 96
[2024-06-21 01:15] VITALS: BP 111/74; PULSE 76; RESP 18; O2SAT 95
[2024-06-21 01:30] VITALS: BP 106/73; PULSE 79; RESP 18; O2SAT 96
[2024-06-21 01:45] VITALS: BP 107/75; PULSE 77; RESP 18; O2SAT 96
[2024-06-21 02:00] VITALS: BP 104/75; PULSE 85; RESP 17; O2SAT 95
[2024-06-21 02:09] LABS: Influenza A QL RT-PCR Negative (Negative); Influenza B QL RT-PCR Negative (Negative); RSV RNA, RT-PCR Negative (Negative); SARS-CoV-2 RNA PCR Negative (Negative)
[2024-06-21] MEDS: KETOROLAC 15 MG/ML VIAL (*BKC) IV PUSH (02:19)
== END 2024-06-21 02:51 | disposition home or self-care (01) ==
PROVIDERS: Emergency Medicine; Emergency Provider Registered Nurse; PCP Family Medicine
DX: T78.40XA Allergy, unspecified, initial encounter (principal); R51.9 Headache, unspecified; R07.89 Other chest pain; K21.9 Gastro-esophageal reflux disease without esophagitis; J45.909 Unspecified asthma, uncomplicated; M79.7 Fibromyalgia; G47.33 Obstructive sleep apnea (adult) (pediatric); K58.9 Irritable bowel syndrome, unspecified; F41.9 Anxiety disorder, unspecified; F17.210 Nicotine dependence, cigarettes, uncomplicated; F17.290 Nicotine dependence, other tobacco product, uncomplicated; Z90.721 Acquired absence of ovaries, unilateral; Z90.711 Acquired absence of uterus with remaining cervical stump; X58.XXXA Exposure to other specified factors, initial encounter
CPT/HCPCS: 36415; 70450; 71046; 80053; 80307; 81003; 83690; 84443; 84484; 85025; 85380; 85610; 85730; 87637; 93005; 96361; 96374; 96375; 99284; A9270; J1100; J1200; J1885; J2765; J7030

== ENCOUNTER 2024-06-28 22:27 | Emergency (ER) | payer OTHER, SELFPAY ==
--- OUTSIDE RECORDS SUMMARY | 2024-06-28 22:30 | XMS_ITS | CONTINUITY OF CARE DOCUMENT ---
Author Name salima, salima Address Unknown Organization [facility] Address [address] [address] [place] [address] Phone [phone] Care Team Providers Care Rush Seater Name Role Phone Sisi BALTAZAR, Amor Mahoney Unavailable [phone] YOANDY BALTAZAR, GERMAIN Champagne Unavailable [phone] VINOD BALTAZAR, CHELI Khanna Unavailable [phone] PROBLEMS Condition Status Date Provider Notes [...] In-person encounter Office Visit Amor Laird MD [facility] Cardiology examination - In-person encounter Office Visit Amor Laird MD [facility] - In-person encounter Office Visit Amor Laird MD [facility] - In-person encounter Office Visit Amor Laird MD [facility] Cardiology examination - In-person encounter Office Visit Benoit Cates MD [facility] - In-person encounter Office Visit Amor Laird MD [facility] - In-person encounter Office Visit Amor Laird MD [facility] Tobacco use - In-person encounter Office Visit Amor Laird MD [facility] CHEST PAIN - In-person encounter Office Visit Amor Laird MD [facility] Office CHEST PAINTobacco useAbnormal nuclear stress test - NL cardiac CT 09/2018 calcium score 0Palpitations - In-person encounter Office Visit Amor Laird MD [facility] Abnormal nuclear stress test - NL cardia c CT 09/2018 calcium score 0 - In-person encounter Office Visit Amor Laird MD [facility] HypercholesterolemiaCHEST PAIN-TYPE TO B E DETERMINEDSHORTNESS OF BREATHPALPITATIONSTobacco useBipolar disorderFamily History Premature CAD - In-person encounter Office Visit Laurence Hannon MD [facility] CHEST PAIN - In-person encounter Office Visit Laurence Hannon MD [facility] - In-person encounter Office Visit Laurence Hannon MD [facility] ANXIETY DISORDERDEPRESSIONHypercholesterolemia VITAL SIGNS Date Observation Value Provider Body Mass Index (Ratio) 23.26 kg/m2 Amor Laird MD oxygen saturation, oximetry 99 % Ariel Alvarenga blood pressure, cuff size regular Juan Luis wilson Alvarenga blood pressure, diastolic 87 mm[Hg] Juan Luis lemusn Alvarenga blood pressure, systolic 106 mm[Hg] Dali malin Alvarenga pulse rate 90 /min [facility] Alvarenga weight E&M 127.2 [lb_av] Juan Luisaron Alvarenga height E&M 62 [in_i] [facility] Body Mass Index (Ratio) 23.59 [...] blood pressure, diastolic 84 mm[Hg] Mi gurwinder [place] blood pressure, systolic 122 mm[Hg] Manuel tonja [place] oxygen saturation, oximetry 98 % Cortney Wynn respiratory rate E&M 16 /min Cece Wynn pulse rate 75 /min Cortney bray weight E&M 125 [lb_av] Cortney bray height E&M 62 [in_i] Cortney bray Body Mass Index (Ratio) 22.86 kg/m2 Juan hoffman Rafael pulse rate 90 /min Gabino [facility] erg blood pressure, diastolic 86 mm[Hg] Al duglas Rafael blood pressure, systolic 124 mm[Hg] Sridevi dao Rafael weight E&M 125 [lb_av] Gabino [facility] erg height E&M 62 [in_i] [facility] erg Body Mass Index (Ratio) 25.42 kg/m2 Juan dalton Rafael blood pressure, diastolic 88 mm[Hg] Ch astity Vik blood pressure, systolic 103 mm[Hg] Randa stity Vik oxygen saturation, oximetry 98 % [facility] Vik pulse rate 98 /min [facility] Vik respiratory rate E&M 18 /min Chastit y Vik weight E&M 139 [lb_av] [facility] height E&M 62 [in_i] [facility] Body [facility] Index (Ratio) 24.69 kg/m2 Juan [facility] pulse rate 96 /min Gabino [facility] [employer] blood pressure, diastolic 78 mm[Hg] [facility] blood pressure, systolic 116 mm[Hg] [facility] weight E&M 135 [lb_av] Gabino [facility] [employer] height E&M 62 [in_i] [facility] erg Body Mass Index (Ratio) 25.05 kg/m2 [...] pressure, diastolic, left arm 78 mm [Hg] [facility] blood pressure, systolic, left arm 116 mm [Hg] [facility] blood pressure, diastolic, right arm 70 m m[Hg] [facility] blood pressure, systolic, right arm 116 m m[Hg] [facility] blood pressure, resting No [facility] Body Mass Index (Ratio) 24.69 kg/m2 [facility] blood pressure, cuff size regular Cy maria [...] Interpretation Location LDL cholesterol, serum 130 mg/dL [facility] LDL cholesterol, serum 174 mg/dL [facility] alanine aminotransferase (SGPT), serum 17 1/L [...] LinkLogic <200 High platelet count 254 10*3/uL [facility]dulio Montes hematocrit, blood 40.6 % [facility] international normalized ratio (INR) 1.0 [facility] platelet count 230 10*3/uL [facility]dulio Montes hematocrit, blood 39.9 % Kathia Montes LDL cholesterol, serum 140 mg/dL [facility] cholesterol, serum 206 mg/dL Kathia Montes alanine [...] ORAL TABLET completed one daily - Gabino [facility] SYMBICORT 160-4.5 MCG/ACT INHALATION AEROSOL completed Two puffs twice a day - Gabino [facility] NORTRIPTYLINE HCL 25 MG ORAL CAPSULE completed One capsule daily - Gabino [facility] NIASPAN 1000 MG ORAL TABLET EXTENDED RELEASE completed 2 tablets daily - Gabino [facility] CRESTOR 40 MG ORAL TABLET completed ONE TAB. DAILY - Gabino [facility] CYCLOBENZAPRINE HCL 10 MG ORAL TABLET completed One tablet at bedtime as needed - Gabino [facility] PREMARIN TABLET completed Take 1 tab twice a week - Gabino [facility] NAPROXEN 500 MG ORAL TABLET completed Take 1 tab twice daily as needed - Gabino [facility] EVENING PRIMROSE OIL 1000 MG ORAL CAPSULE completed Take 1 tab daily in evening time - [facility] VITAMIN E 400 UNIT ORAL TABLET completed Take 1 tab twice daily - [facility] VITAMIN D3 08113 UNIT ORAL TABLET completed TAke 1 tab [...] smoking history, tot al pack/day 1 Cortney [place] cigarette use yes Cortney Doty carmine smoking status Current every day smoker Denzel srivastava Wynn social history reviewed E&M revi ewed - no changes required [facility] social history E&M Smoking Histo ry: P karmen currently smokes every day. P karmen has been counseled to quit. [facility] smoking/tobacco cess ation, patient education and counseling yes [facility] physical exercise, frequency, days per week no [facility] caffeine use, averag e drinks per day 1+ [facility] smoking, year quit 2019 [facility] number of years as a smoker 10+ [facility] smoking history, tot al pack/day 1 [facility] cigarette use yes [facility] smoking status Current every day smoker A wes [facility] social history reviewed E&M revi ewed - no changes required [facility] physical exercise, frequency, days per week [...] P karmen is a former smoker. Gabino [facility] social history reviewed E&M revi ewed - no changes required [facility] smoking, year quit 2018 [facility] physical exercise, frequency, days per week no [facility] caffeine use, averag e drinks per day 1+ [facility] number of years as a smoker 10+ [facility] smoking history, tot al pack/day 1 [facility] cigarette use yes Gabino [facility] smoking status Former smoker Gabino [facility] alcohol use no Amor aLird MD social history reviewed E&M revi ewed [...] karmen has been counseled to quit. Gabino [facility] social history reviewed E&M revi [...] physical exercise, frequency, days per week no [facility] caffeine use, averag e drinks per day yes [facility] alcohol use, average drinks per day social basis only [facility] number of years as a smoker 10 years or m ore [facility] smoking status Smoker [facility] caffeine use, averag e drinks per day [...] RN FAMILY HISTORY Family Member Condition Mother [place] female <65 Maternal Grandmother Family History of C oronary Artery Disease: Maternal Grandfather Family History of C oronary Artery Disease: Uncle Family History of Co ronary Artery Disease: Aunt Family History of Co ronary Artery Disease: Mother Family History Coron narayan Heart Disease female < 65: INSURANCE PROVIDERS Payer name Policy type / Coverage type Ca red libertarian ID Mofang Other [id number] ADVANCE DIRECTIVES Name Date DISCUSSED - NO DECISION MADE TREATMENT PLAN Date Name Performer [id number], No CP or SOB Her updated medication list for this problem includes: Metoprolol Tartrate 25 Mg Tablet (Metoprolol tartrate) ..... 1/2 tablet twice a day Juanpablo Sofie [id number],B,L DL 96 on Praluent. will continue current meds. Cannot tolerate statins. Her updated medication list for this problem includes: Praluent Pen 150 Mg/ml Pen Injector (Alirocumab) ..... Inject 1 pen under the skin every 2 weeks Juanpablo Carrizales [id number],S,I ntolerant of statins. F balwindre on Zetia. R emains very high (LDL 169). W ill send script for Repatha. Benoit Cates MD [id number],S, Benoit mesa MD [id number],S, Benoit mesa MD [id number],S,I ntolerant of statins. F balwinder on Zetia. R emains very high (LDL 169). Benoit Cates MD [id number],S,I nappropriate sinus tach. T ry low dose BB. Benoit Cates MD [id number],S, P t quit smoking in 03/2019. Amor Laird MD [id number],C, LDL is 180 on Zetia. She cannot [...] tablet once a day Amor Laird MD [id number],C,T he pt continues to have episodes of tachycardia with mild exertion. We discussed trying low dose Metoprolol she prefers to hold off at this time. L Amor Laird MD [id number],C,T he pt continues to have episodes of [...] nappropriate sinus tach. [facility]: H er updated medication list for [...] She had a recent CP admission and [place] was ruled out. Stress test in the summer was normal. We discussed ILR and she will consider it further after GI workup is complete. She will contact us after her GI workup. Gabino [facility] TeleHealth:Continues to have palpitations. She had a recent CP admission and [place] was ruled out. Stress test in the summer was normal. We discussed ILR and she will consider it further after GI workup is complete. Gabino [facility] Cardiology:She has b een on [...] Release (Niacin (antihyperlipidemic)) ..... 2 tablets daily [facility] Cardiology:Event mon itor showed no evidence of arrhythmia. [facility] Cardiology:Complains of more episodes of left arm and chest discomfort. Had an abnormal stress test last year but CT calcium score was 0. She is reluctant to have cardiac cath and prefers to schedule a stress test. [facility] Cardiology:Complains of more episodes of left arm and chest discomfort. Had an abnormal stress test last year but CT calcium score was 0. She is reluctant to have cardiac cath and prefers to schedule a stress test. [facility] TeleHealth:She was s tarted on Crestor [...] 57 (06/12/2019) LDL: 174 (06/12/2019) TRI (06/12/2019) [facility] TeleHealth:Pt quit smoking in . [facility] TeleHealth:Had an ep isode of palpitations and had to go to the ER. Will obtain telesentry. [facility] Cardiology follow up :Advised ag clairen to quit. [facility] Cardiology follow up :CardioIQ lipid panel results are pending. [facility] Cardiology follow up :No recent chest pain. Myoview scan showed mild septal wall ischemia however CT coronary calcium score was 0. Will monitor her symptoms. [facility] Cardiology New Patie nt :Orders: C ardioIQ Advanced Lipid Panel with Inflammation ([facility]) (30541) [facility] Cardiology New Patie nt :Orders: E KG (CPT-80881) C omplete Echo (CPT-77615) S tress Exercise Cardiolite (CPT-42120) C T, Coronary Calcium Score (CPT-83177) [facility]iology New Patie nt :Pt was advised to quit. Tried Chantix in the past. Gabino [facility] follow up Laurence Hannon MD follow up Laurence Hannon MD follow up: O rders: E KG (CPT-17412) Laurence Hannon MD follow up: T he following medications were removed from the medication list: Pravastatin Sodium 20 Mg Tabs (Pravastatin sodium) ..... One tab. daily BP today: 126/70 Prior BP: 116/81 (11/06/2011) C HOL: 206 (10/03/2011) LDL: 140 (10/03/2011) Laurence Hannon MD follow up: O rders: E KG (CPT-40520) BP today: 126/70 Prior BP: 116/81 (11/06/2011) [...]
--- OUTSIDE RECORDS SUMMARY | 2024-06-28 22:30 | XMS_ITS | Data Portability ---
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 Referral physical therapist referral - please contact patient to schedule 2024 025 [facility], [address], [place], [address], 04/03/2024 10:40:31 physical therapist referral - Please contact patient to schedule 2023 024 [facility], [address] [place], [address], 04/09/2023 14:05:22 Procedures injection /aspirati on joint/bur sa (PROC) 2023 024 [email or web address] In-Office Order, Internal Use Only DO Not Attach Compendium DO Not Attach Compendium, Do Not Delete/merge, [id number] 09/07/2023 15:00:53 injection /aspirati on joint/bur sa (PROC) 2023 024 [email or web address] In-Office Order, Internal Use Only DO Not Attach Compendium DO Not Attach Compendium, Do Not Delete/merge, [id number] 09/07/2023 14:54:42 injection /aspirati on joint/bur sa (PROC) - in office procedure , administe red by provider 2023 024 [email or web address] In-Office Order, Internal Use Only DO Not Attach Compendium DO Not Attach Compendium, Do Not Delete/merge, [id number] 06/07/2023 14:11:42 injection /aspirati on joint/bur sa (PROC) 2023 024 [email or web address] In-Office Order, Internal Use Only DO Not Attach Compendium DO Not Attach Compendium, Do Not Delete/merge, [id number] 06/07/2023 16:28:29 injection /aspirati on joint/bur sa (PROC) 2023 024 [email or web address] In-Office Order, Internal Use Only DO Not Attach Compendium DO Not Attach Compendium, Do Not Delete/merge, [id number] 04/09/2023 12:39:23 Surgeries None recorded. Imaging MRI, shoulder, w/o contrast - PLEASE CONTACT PATIENT TO SCHEDULE 2023 024 Replaced by [facility], [address] [place] [address] , [place], [address], 10/02/2023 18:40:05 XR, lumbar spine 2023 024 [email or web address] [facility] [place], [address], [place], [address], 06/07/2023 16:28:29 XR, shoulder, 2 or more view 2023 024 [email or web address] [facility] [place], [address], [place], [address], 04/09/2023 12:48:55 XR, hand 2022 023 [email or web address] [facility] [place], [address], [place], [address], 08/10/2022 10:54:47 Medication Orders prednison e 10 mg tablets in a dose pack 2024 025 [email or web address] [facility] #82379, [address], [place], [id number], 04/03/2024 10:26:01 bupivacai ne HCl 0.5 % (5 mg/mL) injection solution [email or web address] [facility]01688, [address] [place], [place], [id number], 09/07/2023 15:43:21 Kenalog 10 mg/mL suspensio n for injection [email or web address] [place] [address] [facility] #28333, [address] [place], [place], [id number], 09/07/2023 15:43:21 bupivacai ne HCl 0.5 % (5 mg/mL) injection solution [email or web address] [place] [address] [facility] #69346, [address], [place], [id number], 09/07/2023 15:43:21 Kenalog 10 mg/mL suspensio n for injection 2023 [email or web address] [facility] #60617, [address], [place], [place], [id number], 09/07/2023 15:43:21 Kenalog 10 mg/mL suspensio n for injection [address] [facility] #59231, [address], [place], [place], [id number], 09/07/2023 14:50:22 Marcaine 0.5 % (5 mg/mL) injection solution [address] [facility] #21404, [address], [place], [place], [id number], 09/07/2023 14:50:44 Kenalog 10 mg/mL suspensio n for injection [address] [facility] #84129, [address], [id number], 09/07/2023 14:50:22 Marcaine (PF) 0.5 % (5 mg/mL) injection solution [address] [facility] #50783, [address] , [place], [place], [id number], 09/07/2023 14:50:50 bupivacai ne HCl 0.5 % (5 mg/mL) injection solution [email or web address] [facility] #25608, [address], [place], [place], [id number], 09/07/2023 14:50:44 Kenalog 10 mg/mL suspensio n for injection [address] [facility] #41062, [address] , [place], [place], [id number], 09/07/2023 14:50:22 Patient TargetsNo targets recorded. Patient [...] 6.8 x10'3 /uL 4.2-10 .8 Not Available [facility] (Lab) [address] [place], [address], 11/01/2022 14:27:30 11/02/19 23 11/01/2022 CBC/C OMPLE TE BLD COUNT W/DIF F red blood cells 5.06 x10'6 /uL 3.80-5 .20 Not Available [facility] (Lab) [address] [place], [address], 11/01/2022 14:27:30 11/02/1911/01/2022 CBC/C OMPLE TE BLD COUNT W/DIF F hemoglobin 14.9 g/dL 12.0-1 5.6 Not Available [facility] (Lab) [address] [place], [address], 11/01/2022 14:27:30 11/02/19 23 11/01/2022 CBC/C OMPLE TE BLD COUNT W/DIF F hematocrit 43.6 % 35.7-4 5.7 Not Available [facility] (Lab) [address] [place], [address], 11/01/2022 14:27:30 11/02/19 23 11/01/2022 CBC/C OMPLE TE BLD COUNT W/DIF F mean red cell volume 86.2 fL 82.0-9 9.0 Not Available [facility] (Lab) [address] [place], [address], 11/01/2022 14:27:30 11/02/19 23 11/01/2022 CBC/C OMPLE TE BLD COUNT W/DIF F mean red cell hemoglobin 29.4 pg 27.0-3 3.0 Not Available [facility] (Lab) [address] [place], [address], 11/01/2022 14:27:30 11/02/19 23 11/01/2022 CBC/C OMPLE TE BLD COUNT W/DIF F mean RBC HGB concentratio n 34.2 g/dL 31.0-3 6.0 Not Available [facility] (Lab) [address] [place], [address], 11/01/2022 14:27:30 11/02/19 23 11/01/2022 CBC/C OMPLE TE BLD COUNT W/DIF F red cell distribution width 11.9 % 11.8-1 5.5 Not Available [facility] (Lab) [address] [place], [address], 11/01/2022 14:27:30 11/02/19 23 11/01/2022 CBC/C OMPLE TE BLD COUNT W/DIF F platelets 310 x10'3 /uL 150-40 0 Not Available [facility] (Lab) [address] [place], [address], 11/01/2022 14:27:30 11/02/19 23 11/01/2022 CBC/C OMPLE TE BLD COUNT W/DIF F mean platelet volume 10.5 fL 9.0-12 .4 Not Available [facility] (Lab) [address] [place], [address], 11/01/2022 14:27:30 11/02/19 23 11/01/2022 CBC/C OMPLE TE BLD COUNT W/DIF F neutrophils 57.4 % 39.0-7 2.0 Not Available [facility] (Lab) [address] [place], [address], 11/01/2022 14:27:30 11/02/19 23 11/01/2022 CBC/C OMPLE TE BLD COUNT W/DIF F lymphocytes 32.2 % 16.0-4 7.0 Not Available [facility] (Lab) [address] [place], [address], 11/01/2022 14:27:30 11/02/19 23 11/01/2022 CBC/C OMPLE TE BLD COUNT W/DIF F monocytes 7.9 % 5.0-12 .0 Not Available [facility] (Lab) [address] [place], [address], 11/01/2022 14:27:30 11/02/19 23 11/01/2022 CBC/C OMPLE TE BLD COUNT W/DIF F eosinophils 0.9 % 1.0-7. 0 low Not Available [facility] (Lab) [address] [place], [address], 11/01/2022 14:27:30 11/02/19 23 11/01/2022 CBC/C OMPLE TE BLD COUNT W/DIF F basophils 1.0 % 0.0-2. 0 Not Available [facility] (Lab) [address] [place], [address], 11/01/2022 14:27:30 11/02/19 23 11/01/2022 CBC/C OMPLE TE BLD COUNT W/DIF F immature granulocytes 0.6 % 0.00-0 .50 high Not Available [facility] (Lab) [address] [place], [address], 11/01/2022 14:27:30 11/02/19 23 11/01/2022 CBC/C OMPLE TE BLD COUNT W/DIF F neutrophils, absolute count 3.92 x10'3 /uL 1.5-8. 0 Not Available [facility] (Lab) [address] [place], [address], 11/01/2022 14:27:30 11/02/19 23 11/01/2022 CBC/C OMPLE TE BLD COUNT W/DIF F lymphocytes, absolute count 2.20 x10'3 /uL 1.07-3 .43 Not Available [facility] (Lab) [address] [place], [address], 11/01/2022 14:27:30 11/02/19 23 11/01/2022 CBC/C OMPLE TE BLD COUNT W/DIF F monocytes, absolute count 0.54 x10'3 /uL 0.29-0 .99 Not Available [facility] (Lab) [address] [place], [address], 11/01/2022 14:27:30 11/02/19 23 11/01/2022 CBC/C OMPLE TE BLD COUNT W/DIF F eosinophils, absolute count 0.06 x10'3 /uL 0.02-0 .53 Not Available [facility] (Lab) [address] [place], [address], 11/01/2022 14:27:30 11/02/19 23 11/01/2022 CBC/C OMPLE TE BLD COUNT W/DIF F basophils, absolute count 0.07 x10'3 /uL 0.01-0 .08 Not Available [facility] (Lab) [address] [place], [address], 11/01/2022 14:27:30 11/02/19 23 11/01/2022 CBC/C OMPLE TE BLD COUNT W/DIF F immature granulocytes ,absolute 0.04 x10'3 /uL 0.00-0 .05 Not Available [facility] (Lab) [address] [place], [address], 11/01/2022 14:27:30 11/02/19 23 11/01/2022 CBC/C OMPLE TE BLD COUNT W/DIF F nucleated red blood cells 0.0 % -0 Not Available [facility] (Lab) [address] [place], [address], 11/01/2022 14:27:30 11/02/19 23 11/01/2022 CBC/C OMPLE TE BLD COUNT W/DIF F NRBC# 0.00 x10'3 /uL Not Available [facility] (Lab) [address] [place], [address], 11/01/2022 14:27:30 11/02/19 23 11/01/2022 IRON/ TIBC PANEL total iron binding capacity 352 mcg/d L 265-47 5 Not Available [facility] (Lab) [address] [place], [address], 11/01/2022 14:50:22 11/02/19 23 11/01/2022 IRON/ TIBC PANEL % transferrin saturation 34 % 20-55 Not Available [facility] (Lab) [address] [place], [address], 11/01/2022 14:50:22 11/02/19 23 11/01/2022 IRON/ TIBC PANEL unsaturated iron bind capacity 231 mcg/d L 126-38 2 Not Available [facility] (Lab) [address] [place], [address], 11/01/2022 14:50:22 11/02/19 23 11/01/2022 IRON/ TIBC PANEL iron 121 mcg/d L 42-175 Not Available [facility] (Lab) [address] [place], [address], 11/01/2022 14:50:22 11/02/19 23 11/01/2022 COMPR EHENS ESTUARDO METAB OLIC PANEL sodium 136 mmol/ L 137-14 5 low Not Available [facility] (Lab) [address] [place], [address], 11/01/2022 14:49:29 11/02/19 23 11/01/2022 COMPR EHENS ESTUARDO METAB OLIC PANEL potassium 4.5 mmol/ L 3.5-5. 1 Not Available [facility] (Lab) [address] [place], [address], 11/01/2022 14:49:29 11/02/19 23 11/01/2022 COMPR EHENS ESTUARDO METAB OLIC PANEL chloride 103 mmol/ L 98-107 Not Available [facility] (Lab) [address] [place], [address], 11/01/2022 14:49:29 11/02/19 23 11/01/2022 COMPR EHENS ESTUARDO METAB OLIC PANEL carbon dioxide 26 mmol/ L 22-30 Not Available [facility] (Lab) [address] [place], [address], 11/01/2022 14:49:29 11/02/19 23 11/01/2022 COMPR EHENS ESTUARDO METAB OLIC PANEL anion gap 11.5 mmol/ L 14-22 low Not Available [facility] (Lab) [address] [place], [address], 11/01/2022 14:49:29 11/02/19 23 11/01/2022 COMPR EHENS ESTUARDO METAB OLIC PANEL glucose 95 mg/dL 70-99 Not Available [facility] (Lab) [address] [place], [address], 11/01/2022 14:49:29 11/02/19 23 11/01/2022 COMPR EHENS ESTUARDO METAB OLIC PANEL BUN 14 mg/dL 8-19 Not Available [facility] (Lab) [address] [place], [address], 11/01/2022 14:49:29 11/02/19 23 11/01/2022 COMPR EHENS ESTUARDO METAB OLIC PANEL creatinine 0.89 mg/dL 0.66-1 .25 Not Available [facility] (Lab) [address] [place], [address], 11/01/2022 14:49:29 11/02/19 23 11/01/2022 COMPR EHENS ESTUARDO METAB OLIC PANEL GFR >60 Refer ence Range : [place] GFR Healt hy Adult : >60 [...] or ethni c subgr oups, such as Hisin nics. Outsi de the valid ated teresa [...] s/kdo qi/gf r_cal culat or Not Available [facility] (Lab) [address] [place], [address], 11/01/2022 14:49:29 11/02/1911/01/2022 COMPR EHENS ESTUARDO METAB OLIC PANEL alkaline phosphatase 59 U/L 38-126 Not Available [facility] (Lab) [address] [place], [address], 11/01/2022 14:49:29 11/02/19 23 11/01/2022 COMPR EHENS ESTUARDO METAB OLIC PANEL alanine aminotransfe rase 24 U/L 0-35 Not Available [facility] (Lab) [address] [place], [address], 11/01/2022 14:49:29 11/02/19 23 11/01/2022 COMPR EHENS ESTUARDO METAB OLIC PANEL aspartate aminotransfe rase 27 U/L 15-37 Not Available [facility] (Lab) [address] [place], [address], 11/01/2022 14:49:29 11/02/19 23 11/01/2022 COMPR EHENS ESTUARDO METAB OLIC PANEL bilirubin, total 0.50 mg/dL 0.20-1 .30 Not Available [facility] (Lab) [address] [place], [address], 11/01/2022 14:49:29 11/02/19 23 11/01/2022 COMPR EHENS ESTUARDO METAB OLIC PANEL calcium 9.4 mg/dL 8.4-10 .2 Not Available [facility] (Lab) [address] [place], [address], 11/01/2022 14:49:29 11/02/19 23 11/01/2022 COMPR EHENS ESTUARDO METAB OLIC PANEL total protein 7.1 g/dL 6.3-8. 2 Not Available [facility] (Lab) [address] [place], [address], 11/01/2022 14:49:29 11/02/19 23 11/01/2022 COMPR EHENS ESTUARDO METAB OLIC PANEL albumin 4.2 g/dL 3.4-5. 0 Not Available [facility] (Lab) [address] [place], [address], 11/01/2022 14:49:29 11/02/19 23 11/01/2022 COMPR EHENS ESTUARDO METAB OLIC PANEL globulin 2.9 g/dL 2.6-4. 2 Not Available [facility] (Lab) [address] [place], [address], 11/01/2022 14:49:29 11/02/19 23 11/01/2022 COMPR EHENS ESTUARDO METAB OLIC PANEL A/G ratio 1.4 ratio 1.0-2. 0 Not Available [facility] (Lab) [address] [place], [address], 11/01/2022 14:49:29 11/02/19 23 11/01/2022 VITAM IN B12 (HARIS DONAVON ) vb12 754 pg/mL 239-93 1 Not Available [facility] (Lab) [address] [place], [address], 11/01/2022 16:26:25 11/02/19 23 11/01/2022 FOLAT E, SERUM /PLAS MA folate 13.3 NG/mL 2.76-2 0.0 Not Available [facility] (Lab) [address] [place], [address], 11/01/2022 16:26:27 11/02/19 23 11/01/2022 VITAM IN D 25-HY DROXY vd25oh 56.4 NG/mL 30-100 Vitam in D Statu s: Defic ient: <20 ng/mL Insuf ficie nt: 20-29 ng/mL Suffi cient : 30-10 0 ng/mL Not Available [facility] (Lab) [address] [place], [address], 11/01/2022 15:48:43 11/02/19 23 11/01/2022 T3 FREE free T3 3.2 pg/mL 2.77-5 .27 Not Available [facility] (Lab) [address] [place], [address], 11/01/2022 15:03:02 11/02/19 23 11/01/2022 T4 FREE free T4 0.92 NG/dL 0.78-2 .19 Not Available [facility] (Lab) [address] [place], [address], 11/01/2022 15:03:03 11/02/19 23 11/01/2022 TSH thyroid-stim ulating hormone 1.650 uIU/m L 0.465- 4.680 Not Available [facility] (Lab) [address] [place], [address], 11/01/2022 15:10:34 11/02/19 23 11/01/2022 BLANE TIN ferritin 27 NG/mL 6.24-1 37 Not Available [facility] (Lab) [address] [place], [address], 11/01/2022 15:11:10 08/11/19 23 XR, hand No observ ation record ed. [email or web address] [facility] [place] [address] [facility] [address], [place], [address], 08/10/2022 09:54:24 04/09/19 24 XR, shoul brenda, 2 or more view No observ ation record ed. [email or web address] [facility] [place] [address] [facility] [address], [place], [address], 04/09/2023 12:48:53 06/07/19 24 XR, lumba r spine No observ ation record ed. [email or web address] [facility] [place] [address] [facility] [address], [place], [address], 06/07/2023 14:11:44 10/02/19 24 MRI, shoul brenda, w/o contr ast [facility] [address] [address] Patien t Name: SAMANTHA RUCKER ion #: [id number] Sex: F : 1980 8 Dictat [...] frayin g in the distal Page 1 [facility] [address] [place] [address] Patien t Name: SAMANTHA RUCKER ion #: [id number] Sex: F : 1980 8 Dictat [...] at 2023 15:37: 54 PM Page 2 [facility] (Imaging) [address] [place], [address], 10/03/2023 09:59:39 Result Notes None recorded. Problems Name Problem SNOMED Code Status Onset Date Resolution Date Notes Provider Name and Address Organization Details Recorded Time Hyperchole sterolemia 70064481 Active Not Available [facility] 3 00:48:03 Dry skin 26205776 Active Not Available [employer] 3 00:48:03 Asthma 179700437 Active Not Available [employer] 3 00:48:04 Abdominal pain 69776561 Active Not Available [employer] 3 00:48:04 Thyroid nodule 058901479 Active 2021 Not Available [facility] 3 00:48:04 Headache 62918645 Active Not Available [employer] 3 00:48:04 Hypoglycem ia 487218672 Active 2021 Not Available [facility] 3 00:48:04 Vitamin D deficiency 93719412 Active 2021 Not Available [facility] 3 00:48:04 Iron deficiency 87416632 Active 2021 Not Available [facility] 3 00:48:04 Depressive disorder 35040986 Active Not Available [facility] 3 00:48:04 Onychomyco sis 205509198 Active Not Available [facility] 3 00:48:04 Unintentio nal weight loss 932935668 Active Not Available [facility] 3 00:48:04 Gastritis 1944668 Active Not Available [facility] 3 00:48:04 Anxiety 14807133 Active Not Available [facility] 3 00:48:04 Inflammati on of sacroiliac joint 70721879 Active 2019 Not Available [facility] 3 00:48:04 Tinea pedis 1935312 Active 2021 Not Available [facility] 3 00:48:04 Diarrhea 28226682 Active Not Available [facility] 3 00:48:04 Vitamin B12 deficiency (non anemic) 76779901 Active 2021 Not Available [facility] 3 00:48:05 Sacroiliac joint pain 194131029 Active 2022 Padma Angulo [employer] null, [place] [facility] 3 09:19:42 Low back pain 832041796 Active 2022 [employer] null, [place] [facility] 3 09:19:51 Multiple joint pain 60049648 Active 2022 Padma Angulo [employer] null, [place] [facility] 3 09:20:00 Pain of left hand 4134249587078 03 Active 2022 Padma Angulo [employer] null, [place] [facility] 3 09:20:42 Sprain of interphala ngeal joint of finger 37644568 Active 2022 NELI Morse [address] [facility] 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 [facility] [address], [place], [address], 08/10/2022 09:54:24 04/09/2023 XR, shoulder, 2 or more view completed [email or web address] [facility] [place] [address] [facility] [address], [place], [address], 04/09/2023 12:48:53 06/07/2023 XR, lumbar spine completed [email or web address] [facility] [place] [address] [facility] [address], [place], [address], 06/07/2023 14:11:44 10/02/2023 MRI, shoulder, w/o contrast completed [address] (Imaging) [address] [place], [address], 10/03/2023 09:59:39 Procedure Notes None recorded. Medical Equipment None Reported. Allergies Allergen ID Allergen Name Allergen Category Reaction Reaction Severity Criticality Documentation Date Start Date Code Code System Note Provider Name and Address Organization Details Recorded Time 460 pravastat in medicatio n Not available Not available Not available 05/31/2022 83301 RxNorm Not Available [facility] 3 00:52:27 461 Dilaudid medicatio n Not available Not available Not available 05/31/2022 75746 3 RxNorm Not Available [facility] 3 00:52:27 462 codeine medicatio n Not available Not available Not available 05/31/2022 2670 RxNorm Not Available [facility] 3 00:52:27 Medications Name Sig Start [...] 40 mg by injection route. 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[employer] 04/09/2023 11:57:33 Date Recorded Body height Body mass index (BMI) Body weight Provider Name and Address Organization Details Last Updated DateTime 06/07/2023 157.48 cm 25.6 kg/m2 62603.93 g 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[employer] [facility] [employer] 06/07/2023 13:28:18 Date Recorded Body height Body mass index (BMI) Body weight Provider Name and Address Organization Details Last Updated DateTime 09/07/2023 157.48 cm 23.8 kg/m2 16649.01 g Dasia Bhatt [employer] [facility] [employer] 09/07/2023 14:48:16 Date Recorded Body height Body mass index (BMI) Body weight Provider Name and Address Organization Details Last Updated DateTime 04/03/2024 157.48 cm 21.9 kg/m2 05724.08 g Padma Angulo [employer] [facility] [employer] 04/03/2024 09:44:34 Social History Question Answer Notes LastModified by Organizat ion Details LastModified Time Tobacco Smoking Status Current Every Day Smoker Not Available [facility] 05/31/2022 00:42:34 What Is Your Level Of Alcohol Consumption? None Information not available 08/10/2022 What Is Your Level Of Caffeine Consumption? None [id number] Information not available 05/31/2022 In The 14 Days Before Symptom Onset, Have You Had Close Contact With A Laboratory-confirm ed COVID-19 While That Case Was Ill? No [id number] Information not available 05/31/2022 In The 14 Days Before Symptom Onset, Have You Had Close Contact With A Person Who Is Under Investigation For COVID-19 While That Person Was Ill? No [id number] Information not available 05/31/2022 What Type Of Diet Are You Following? 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 No [id number] Information not available 05/31/2022 What Is Your Relationship Status? [id number] Information not available 05/31/2022 How Much Tobacco Do You Smoke? 0.5 PPD Information not available 08/10/2022 Do You Use Any Illicit Or Recreational Drugs? No [id number] Information not available 05/31/2022 How Many Years Have You Smoked Tobacco? 20 [id number] Information not available 05/31/2022 Have You Recently Traveled Abroad? No [id number] Information not available 05/31/2022 Do You Have Any Dietary Restrictions? No [id number] Information not available 05/31/2022 Sex: Female Functional Status None recorded. Mental Status None recorded. Family History Relationship Description Onset Age of this Age Resolved Age Notes LastModified by Organization Details LastModified Time Mother Heart disease self [email or web address] Not available 2023 14:51:51 Mother Diabetes mellitus [id number] Not available 05/31/2022 00:43:51 Maternal Grandfather Acute stroke [id number].0 30 [id number] Not available 05/31/2022 00:43:51 Medical History Condition Response ARTHRITIS Y GI PROBLEMS Y ALLERGIES/HAYFEVER Y HEARTBURN / REFLUX Y HIGH CHOLESTEROL / HYPERLIPIDEMIA Y ANXIETY DISORDER Y GERD/NAUSEA Y ANEMIA/BLOOD DISORDER Y FIBROMYALGIA Y URINARY/BLADDER/KIDNEY PROBLEMS Y USE OF NSAIDS Y DEPRESSION (INCLUDING POST ) Y BACK / NECK PROBLEMS Y Gynecological HistoryNo gynecological history recorded. Obstetrics History GPAL:G 0 P 0 0 0 0 Past Encounters Encounter ID Performer Location Encounter Start Date Encounter Closed Date Diagnosis/Indication Diagnosis SNOMED-CT Code Diagnosis ICD10 Code Diagnosis Note [id number] [facility] [address] [place] [address] 06/01/2020 00:00:00 06/01/2020 15:52:37 [id number] [facility] [address] [place] [address] 08/03/2020 00:00:00 08/03/2020 15:55:30 [id number] [facility] [place] [address] [place] [address] 11/15/2020 00:00:00 11/15/2020 11:27:46 [id number] [facility] [facility] [address] [place] [address] 01/13/2021 00:00:00 01/13/2021 11:40:53 [id number] [facility] [address] [place] [address] 06/01/2021 00:00:00 06/01/2021 09:58:34 [id number] [facility] [address] [place] [address] 06/27/2021 00:00:00 06/27/2021 17:14:27 [id number] [facility] [address] [place] [address] 08/25/2021 00:00:00 08/25/2021 18:48:59 [id number] [facility] [address] [place] [address] 09/12/2021 00:00:00 09/12/2021 11:37:10 [id number] [facility] [address] [place] [address] 09/27/2021 00:00:00 09/27/2021 18:35:43 [id number] [facility] [address] [place] [address] 01/27/2022 00:00:00 01/27/2022 14:02:25 [id number] NELI Morse [facility] [address] [place] [address] 08/10/2022 09:02:08 08/10/2022 10:54:47 Sacroiliac joint pain [id number] M53.3 Low back pain [id number] M54.50 Multiple joint pain 3567 8005 M25.50 Pain of left hand 566819 6135 80811 M79.642 Sprain of interphalangeal joint of finger 28489870 S63.631A [id number] NELI Morse [facility] [address] [place] [address] 04/09/2023 11:52:44 04/09/2023 12:41:54 Pain of right shoulder joint 2516067163 9248661 M25.511 Tendinitis of right rotator cuff 8436517233 1563476 M67.591 [id number] NELI Morse [facility] [address] [place] [address] 06/07/2023 13:23:59 06/07/2023 15:02:47 Pain of right shoulder joint 4610424255 3124395 M25.511 Tendinitis of right rotator cuff 0319954178 6125637 M67.813 Low back pain 257775601 M54.50 Sacroiliac joint pain 20 1058622 M53.3 [id number] NELI Morse [facility] [address] [place] [address] 09/07/2023 14:32:10 09/07/2023 15:25:32 Pain of right shoulder joint 8875863687 4927476 M25.511 Tendinitis of right rotator cuff 0484038474 4756763 M67.813 Sacroiliac joint pain 20 8897768 M53.3 [id number] NELI Morse [facility] [address] [place] [address] 04/03/2024 09:39:54 04/03/2024 10:28:08 Pain of right shoulder joint 9856008165 0622518 M25.511 Tendinitis of right rotator cuff 8880751954 4079056 M67.813 Impingemen t syndrome of right shoulder region 0911343229 26781 M75.41 [id number] [facility] [address] [address] 04/24/2024 10:05:04 04/24/2024 14:01:05 [id number] Keren Smith NP [facility] [address] [place] [address] 06/16/2024 12:18:54 06/16/2024 14:28:00 Health Concerns Section Related Observation LastModified by Organization Detai ls LastModified Time None Recorded Concern Status LastModified by Organization Details LastModified Time None Recorded Advance Directives Directive None Recorded Payers Encounter Date Sequence Insurance Name Policy Number Policy Escamilla Covered Member ID Escamilla Member ID Guarantor Name 08/10/2022 1 [facility] [employer] - OPEN ACCESS III (PPO) [id number] [facility] [id number] [facility] 04/09/2023 1 [facility] - OPEN ACCESS III (PPO) [id number] [facility] [id number] [facility] 06/07/2023 1 [facility] - OPEN ACCESS III (PPO) [id number] [facility] [id number] [facility] 09/07/[address] [facility] & VESSEL CAPTAIN [facility] - OPEN ACCESS III (PPO) [id number] [facility] [id number] [facility] 04/03/2024 1 [facility] [employer] & VESSEL CAPTAIN [facility] - OPEN ACCESS III (PPO) [id number] [facility] [id number] [facility] Notes Date Note Type Note Provider [...] in detail today with the patient. NELI [facility] [address], [place], [address], [employer] 08/10/2022 09:55:58 04/09/2023 text/html patient returns today with a new problem. She has right shoulder pain ongoing for about a year. Over the past 2-3 months it has been much worse she described occasional aching [id number] pain that radiate into the upper arm [...] NELI Morse [address], [place], [address], [employer] 04/09/2023 12:49:41 06/07/2023 text/html Patient returns complaining [...] cannot take these medications. NELI Morse [address] [facility], [facility] [address], [place], [address], [facility] [employer] 06/07/2023 14:16:22 09/07/2023 text/html Patient returns with [...] since her last cortisone injections. NELI Morse [address] [place] [address], [facility] [address], [place], [address], [place] [facility] 09/07/2023 16:05:09 04/03/2024 text/html the patient retu [...] symptoms with it. She has seen a office support he put her on Celebrex for a [...] and further treatment if necessary. NELI Morse [address] [place] [address], [facility] [address], [place], [address], [place] [facility] [employer] 04/03/2024 10:25:59 OBGyn Episode No OBEpisode recorded.
--- OUTSIDE RECORDS SUMMARY | 2024-06-28 22:30 | XMS_ITS | Clinical Summary ---
Author Organization [facility] Address [address] [place] [address] Care Team Providers Care Industrial Staff Nurse Name Role Phone Adrian Bryant MD Primary Care Provider [phone] Medications traMADol (ULTRAM) 50 MG tablet TAKE [...] patient's age to complete this topic Insurance [employer] OPEN ACCESS [facility] Care Teams Industrial Staff Nurse Relationship Specialty Start Date End Date Adrian Bryant MD [address] [place] [address] PCP - General INTERNAL MEDICINE 01/11/22
--- OUTSIDE RECORDS SUMMARY | 2024-06-28 22:30 | XMS_ITS | Referral Summary ---
Author Organization [address] Address [address] [place] [address] Care Team Providers Care Saddle Lining Stitcher Name Role Phone Dc Brooks MD Unavailable [phone] Caity Sanabria NP Unavailable [phone] Pamela Parekh MD Primary Care Provider [phone] Encounters Date Type Department Care Team Description 04/16/2024 Telephone [facility] [address] [place] [address] Lashay Carney, RN from Last [...] 05/18/2021 Assessment & Plan (05/18/2021 3:13 PM STILL OPERATOR BRANDY): I did request the chest x-ray from [facility] in [place]. I have also ordered another chest x-ray [...] 11/05/2019 Assessment & Plan (05/18/2021 3:11 PM STILL OPERATOR BRANDY): The patient was once again encouraged to [...] complication Assessment & Plan (05/18/2021 3:11 PM STILL OPERATOR BRANDY): The patient was given sample of Breztri [...] Trelegy. Assessment & Plan (06/04/2019 10:51 AM STILL OPERATOR BRANDY): The patient did have significant improvement following bronchodilators. I will give her a trial of Symbicort 160/4.5 and albuterol MDI to see if this improves her symptoms. Shortness of breath 05/14/2019 Assessment & Plan (05/14/2019 8:43 AM STILL OPERATOR BRANDY): The patient quit smoking 2 months ago and smoked up to 1 pack of cigarettes a day for 27 years. With her dyspnea on exertion, I will check full PFTs and a 6 minute walk test. Other chest pain 05/14/2019 Assessment & Plan (06/04/2019 10:52 AM STILL OPERATOR BRANDY): I will hold off on a CT angiogram of the chest at this time since she felt like the chest pain improved after the nebulizer treatment. Assessment & Plan (05/14/2019 8:42 AM STILL OPERATOR BRANDY): The patient has had a previous cardiac [...] on file Legal Sex Female 9:08 PM STILL OPERATOR BRANDY Gender Identity Female 07/01/2021 12:01 PM CDT Sexual Orientation Straight 07/01/2021 12 :01 PM CDT Last Filed Vital Signs Vital Sign Reading Time Taken Comments Blood Pressure 112/79 09/04/2023 3:17 PM CDT Pulse 71 09/04/2023 3:17 PM CDT Temperature 36.5 C (97.7 F) 11/05/2019 10:41 AM CDT Respiratory Rate 18 05/18/2021 2:44 PM STILL OPERATOR BRANDY Oxygen Saturation 98% 05/18/2021 2:44 PM STILL OPERATOR BRANDY Inhaled Oxygen Concentration - - Weight 56.7 kg (125 lb) 02/14/2024 12:21 PM STILL OPERATOR BRANDY Height 157.5 cm (5' 2 ) 02/14/2024 12:21 PM STILL OPERATOR BRANDY Body Mass Index 22.86 02/14/2024 12:21 PM STILL OPERATOR BRANDY Plan of Treatment Not on file Insurance [employer] OPEN ACCESS [employer] OPEN ACCESS Care Teams Saddle Lining Stitcher Relationship Specialty Start Date End Date Pamela Parekh MD PCP - General Family Medicine 09/04/23 Dc Brooks MD Obstetrics and Gynecology 05/14/19 Caity Sanabria NP Nurse Practitioner Nurse Practitioner 01/12/22
--- OUTSIDE RECORDS SUMMARY | 2024-06-28 22:30 | XMS_ITS | Clinical Summary ---
Author Organization [facility] Address [address] [place] [address] Phone Care Team Providers Care Insulation Batting Machine Operator Name Role Phone Unavailable Primary Care Provider [...] cm (5' 2 ) 03/20/2023 2:43 PM ASSOCIATE PROFESSOR OF ANTHROPOLOGY Body Mass Index 24.66 03/20/2023 2:43 PM ASSOCIATE PROFESSOR OF ANTHROPOLOGY Plan of Treatment Health Maintenance Due Date Last Done Comments PNEUMOCOCCAL VACCINE 0-49 YEARS (1 of 2 - PCV) 1984 HEPATITIS B VACCINES (1 of 3 - 19+ 3-dose series) 1997 PAP SMEAR 2008 INFLUENZA VACCINE (#1) 2023 COLORECTAL SCREENING 11/10/2023 Colorectal Cancer Screening 11/10/2023 FIT-DNA Q 3 years 11/10/2023 FIT/FOBT Q 1 year 11/10/2023 Flex Sig/CT Colonography Q 5 years 11/10/2023 BREAST CANCER SCREENING 04/10/2024 04/10/19 24, 10/26/2020 DTAP/TDAP/TD VACCINES (2 - T d or Tdap) 07/24/2026 07/24/2016 HPV VACCINES Aged Out No longer eligi ble based on patient's age to complete this topic Procedures Procedure Name Priority Date/Time Associated Diagnosis Comments MAMMO BILAT DIAGNOSTIC Routine 04/10/2023 2:28 PM ASSOCIATE PROFESSOR OF ANTHROPOLOGY from Last 3 Months or Most Recently Relevant to Health Maintenance Results * MAMMO BILAT DIAGNOSTIC (04/10/2023 2:28 PM ASSOCIATE PROFESSOR OF ANTHROPOLOGY) Anatomical Region Laterality Modality Breast Bilateral Mammography David Baptiste MD MAMMO ORDERABLES Final Result from Last 3 Months or Most Recently Relevant to Health Maintenance Insurance [employer] OPEN ACCESS Member Subscriber Plan / Payer (Ef fective 2020-Present) Name:Tootie Gleason Relation to Subscriber:Self Name:Tootie Gleason Payer ID:Not on file Group ID:[id number] Type:HMO [address]: [address] [employer] OPEN ACCESS Member Subscriber Plan / Payer (Ef fective 2020-Present) Name:Tootie Gleason Relation to Subscriber:Self Name:Tootie Gleason Payer ID:Not on file Group ID:[id number] Type:HMO [address]: [address]
[2024-06-28 22:31] VITALS: BP 132/97; PULSE 121; RESP 16; TEMP 36.1; O2SAT 99
--- OUTSIDE RECORDS SUMMARY | 2024-06-28 22:31 | XMS_ITS | Data Portability ---
Author Organization [facility] MICHAELPascale Metzger Address [address] [place] [address] Care Team Providers Care Manufacturing Process Technician Name Role Phone ROCIO MORRIS Catering Administrative Assistant [phone] Assessment Encounter Date Assessment Date Assessment LastModified by Organization Details LastModified Time 12/02/2021 12/02/2021 ANTOINETTE Monet PA-S Not available 12/06/2021 07:29:45 Plan of Treatment Reminders Order Date Submit Date Provider Last Modified By Organization Details Last Modified Time Details Appointments None recorded. Lab lh + FSH, serum 2022 023 [facility], [address], [place], [address], 3 03:08:21 estradiol, serum 2022 023 [facility], [address], [place], [address], 3 03:08:20 TSH + free T4, serum 2022 023 [facility], [address], [place], [address], 3 03:08:18 urinalysis, dipstick 2022 023 [email or web address] In-Office Order, Internal Use Only DO Not Attach Compendium DO Not Attach Compendium, Do Not Delete/merge, [id number] 3 11:40:38 culture, urine 2022 023 [facility], [address], [address], [place], [address], 3 03:08:21 HbA1c (hemoglobin A1c), blood 2022 023 [facility], [address], [address], [place], [address], 3 03:08:19 bacterial vaginosis score, VENTURA+probe, vaginal fluid (OBS) 2021 022 [facility], [address], [place], [address], 2 20:07:53 Referral orthopedic surgeon referral 2022 [address] [facility], [address], [place], [address], 3 14:17:33 hematologis t referral 2022 023 YESICA Baptiste MD, [address], [place], [address], 3 23:42:08 breast surgery referral 2022 023 [facility], [address], [address], [place], [address], 4 14:11:01 Procedures None recorded. Surgeries None recorded. Imaging US, doppler, arterial 2022 023 [facility] ([facility]), [address] [place], [address], 3 12:42:32 US, pelvis, transabdomi nal + transvagina l - follow up CT scan 01/21/23, possible abscess vrs. L. adnexal cyst measuring [id number] 2022 023 [facility] ([facility]), [address] [place], [address], 3 09:45:41 US, pelvis, transabdomi nal + transvagina l [address] ([facility] Call Scheduling), [address] [place], [address], 3 09:05:06 MAMMO, diagnostic, digital, bilateral [address] ([facility] Call Scheduling), [address] [place], [address], 3 16:16:29 US, breast, bilateral 2022 023 [facility] ([facility] Sched[facility]), [address] [place], [address], 3 17:13:52 MAMMO, screening, bilateral [address] ([facility] Scheduling), [address] [place], [address], 2 20:45:10 Medication Orders pregabalin 50 mg capsule 2022 023 [id number], [address] , [place], [place], [id number], 3 13:46:16 Patient TargetsNo targets recorded. Patient Instructions Encounter Date Encounter Id Patient Instructions Last Modified By Organization Details Last Modified Time 12/02/2021 [id number] learning about breast cancer screening Not available 12/02/2021 17:10:23 Follow up with PCP and GI for IBS symptoms. Not available 12/14/2021 15:54:06 01/26/2023 [id number] Kya MORA discussed case with Lachelle Morris PA-C Not available 01/26/2023 16:55:15 03/15/2023 [id number] Follow up with PCP for abdominal pain, normal CT results [email or web address] Not available 03/30/2023 17:31:14 Kulwinder Mcdonald Discussed with Lachelle Morris PA-C [email or web address] Not available 03/30/2023 17:29:01 Reason for Referral Breast Surgery Referral for Multiple cysts of breast Referring Physician: Rocio Morris, Gore Seamer, Encounter Date: 11/22/2022 Orthopedic Surgeon Referral for Pain in bilateral lower legs Referring Physician: Adrian Bryant, Internal Medicine, Encounter Date: 02/20/2023 Referring Physician: Adrian Bryant, Internal Medicine, Encounter Date: 02/20/2023 Results Created Date Observation Date Name Description Value Unit Range Abnormal Flag Note LastModifiedBy Organization Detail LastModifiedTime 12/03/19 22 12/10/2021 NUSWA B VG+, HSV atopobium vaginae Low - 0 score Not Available [facility] ([facility]) [address] [place], [address], 12/10/2021 20:07:53 12/03/19 22 12/10/2021 NUSWA B VG+, HSV bvab 2 Low - 0 score Not Available [facility] ([facility]) [address] [place], [address], 12/10/2021 20:07:53 12/03/1912/10/2021 NUSWA B VG+, HSV [...] Drug Admin istra tion. Not Available [facility] ([facility]) [address] [place], [address], 12/10/2021 20:07:53 12/03/19 22 12/10/2021 NUSWA B VG+, HSV serena albicans, VENTURA Negati ve negati ve Not Available [facility] ([facility]) [address] [place], [address], 12/10/2021 20:07:53 12/03/19 22 12/10/2021 NUSWA B VG+, HSV serena glabrata, VENTURA Negati ve negati ve Not Available [facility] ([facility]) [address] [place], [address], 12/10/2021 20:07:53 12/03/19 22 12/10/2021 NUSWA B VG+, HSV trich vag by VENTURA Negati ve negati ve Not Available [facility] ([facility]) [address] [place], [address], 12/10/2021 20:07:53 12/03/19 22 12/10/2021 NUSWA B VG+, HSV chlamydia trachomatis, VENTURA Negati ve negati ve Not Available [facility] ([facility]) [address] [place], [address], 12/10/2021 20:07:53 12/03/19 22 12/10/2021 NUSWA B VG+, HSV neisseria gonorrhoeae, VENTURA Negati ve negati ve Not Available [facility] ([facility]) [address] [place], [address], 12/10/2021 20:07:53 12/03/19 22 12/10/2021 NUSWA B VG+, HSV hsv 1 VENTURA Negati ve negati ve Not Available [facility] ([facility]) [address] [place], [address], 12/10/2021 20:07:53 12/03/19 22 12/10/2021 NUSWA B VG+, HSV hsv 2 VENTURA Negati ve negati ve Not Available [facility] ([facility]) [address] [place], [address], 12/10/2021 20:07:53 03/15/20 23 03/16/2023 TSH+F REE T4 TSH 1.720 uIU/m L 0.450- 4.500 Not Available [facility] ([facility]) [address] [place], [address], 03/17/2023 03:08:18 03/15/2003/16/2023 TSH+F REE T4 T4,free(dire ct) 1.30 NG/dL 0.82-1 .77 Not Available [facility] ([facility]) [address] [place], [address], 03/17/2023 03:08:18 03/15/2003/16/2023 HEMOG LOBIN A1C hemoglobin A1C 5.4 % 4.8-5. 6 Predi abete s: 5.7 - 6.4 Diabe kelsey: >6.4 Glyce debi contr ol for adult s with diabe kelsey: <7.0 Not Available [facility] ([facility]) [address] [place], [address], 03/17/2023 03:08:19 03/15/2003/16/2023 ESTRA DIOL estradiol 9.1 pg/mL Adult Femal e Range Folli cular phase 12.5 - 166.0 Ovula tion phase 85.8 - 498.0 Lutea l phase 43.8 - 211.0 Postm enopa usal <6.0 - 54.7 Pregn kirk 1st trime ster 215.0 - >4300 .0 Jeni ECLIA metho dolog y Not Available [facility] ([facility]) [address] [place], [address], 03/17/2023 03:08:20 03/15/20 23 03/16/2023 URINE CULTU RE, ROUTI NE urine culture, routine Final report Not Available [facility] ([facility]) [address] [place], [address], 03/17/2023 03:08:20 03/15/2003/16/2023 URINE CULTU RE, ROUTI NE result 1 Commen t Mixed uroge nital donna 10,00 0-25, 000 colon y formi ng units per mL Not Available [facility] ([facility]) [address] [place], [address], 03/17/2023 03:08:20 03/15/2003/16/2023 FSH AND LH LH 64.0 mIU/m L Adult Femal e Range Folli cular phase 2.4 - 12.6 Ovula tion phase 14.0 - 95.6 Lutea l phase 1.0 - 11.4 Postm enopa usal 7.7 - 58.5 Not Available [facility] ([facility]) [address] [place], [address], 03/17/2023 03:08:21 03/15/2003/16/2023 FSH AND LH FSH 116.0 mIU/m L Adult Femal e Range Folli cular phase 3.5 - 12.5 Ovula tion phase 4.7 - 21.5 Lutea l phase 1.7 - 7.7 Postm enopa usal 25.8 - 134.8 Not Available [facility] ([facility]) [address] [place], [address], 03/17/2023 03:08:21 03/15/20 23 03/15/2023 urina lysis , dipst ick Leukocytes Negati ve Not Available In-Office Order Internal Use Only DO Not Attach Compendium DO Not Attach Compendium, Do Not Delete/merge, [id number] 03/15/2023 11:30:13 03/15/20 23 03/15/2023 urina lysis , dipst ick Nitrite negati ve Not Available In-Office Order Internal Use Only DO Not Attach Compendium DO Not Attach Compendium, Do Not Delete/merge, [id number] 03/15/2023 11:30:13 03/15/20 23 03/15/2023 urina lysis , dipst ick Urobilinogen .2 Not Available In-Of fice Order Internal Use Only DO Not Attach Compendium DO Not Attach Compendium, Do Not Delete/merge, [id number] 03/15/2023 11:30:13 03/15/20 23 03/15/2023 urina lysis , dipst ick Protein Negati ve Not Available In-Office Order Internal Use Only DO Not Attach Compendium DO Not Attach Compendium, Do Not Delete/merge, [id number] 03/15/2023 11:30:13 03/15/20 23 03/15/2023 urina lysis , dipst ick pH 5.5 Not Available In-Office Order Internal Use Only DO Not Attach Compendium DO Not Attach Compendium, Do Not Delete/merge, [id number] 03/15/2023 11:30:13 03/15/20 23 03/15/2023 urina lysis , dipst ick Blood Non-He molyze d: Trace Not Available In-Office Order Internal Use Only DO Not Attach Compendium DO Not Attach Compendium, Do Not Delete/merge, [id number] 03/15/2023 11:30:13 03/15/20 23 03/15/2023 urina lysis , dipst ick Specific Caroline 1.030 Not Available In-Off ice Order Internal Use Only DO Not Attach Compendium DO Not Attach Compendium, Do Not Delete/merge, [id number] 03/15/2023 11:30:13 03/15/20 23 03/15/2023 urina lysis , dipst ick Ketone Negati ve Not Available In-Office Order Internal Use Only DO Not Attach Compendium DO Not Attach Compendium, Do Not Delete/merge, [id number] 03/15/2023 11:30:13 03/15/20 23 03/15/2023 urina lysis , dipst ick Bilirubin Small Not Available In-Offic e Order Internal Use Only DO Not Attach Compendium DO Not Attach Compendium, Do Not Delete/merge, [id number] 03/15/2023 11:30:13 03/15/20 23 03/15/2023 urina lysis , dipst ick Glucose Negati ve Not Available In-Office Order Internal Use Only DO Not Attach Compendium DO Not Attach Compendium, Do Not Delete/merge, [id number] 03/15/2023 11:30:13 12/22/19 22 12/19/2021 MAMMO , scree kit, bilat eral No observ ation record ed. [email or web address] [facility] [address] [place], [address], 12/22/2021 15:46:02 01/11/20 22 01/10/2022 US, breas t, bilat eral No observ [facility]ion [facility] ed[facility] [address] [place], [address], 01/11/2022 20:34:09 01/15/20 22 01/14/2022 XR, knee No observ ation record ed. [facility] [address] [place], [address], 11/22/2022 10:57:26 03/25/20 22 03/25/2022 XR, ribs, unila teral No observ ation record ed. oajao [facility] [address] [place], [address], 03/31/2022 06:00:56 10/29/19 23 10/28/2022 CT, abdom en + pelvi s, w/ contr ast No observ ation record ed. [email or web address] [place], [address], 11/02/2022 01:14:05 12/15/19 23 12/14/2022 US, breas t, bilat eral No observ ation record ed. [facility] [address] [place], [address], 12/15/2022 08:50:31 12/15/19 23 12/14/2022 MAMMO , diagn ostic , digit al, bilat eral No observ ation record ed. [address] [place], [address], 01/26/2023 16:43:04 12/15/19 23 12/14/2022 US, pelvi s, trans abdom inal + trans vagin al No observ ation record ed. [address] [place], [address], 01/26/2023 16:43:05 01/22/20 23 01/21/2023 CT, abdom en + pelvi s, w/ contr ast No observ ation record ed. [address] [place], [address], 01/26/2023 16:43:03 02/15/20 23 02/13/2023 US, pelvi s, trans abdom inal + trans vagin al No observ ation record ed. [facility] ([facility]) [address] [place], [address], 03/14/2023 16:39:16 03/08/20 23 03/08/2023 CT, abdom en + pelvi s, w/ contr ast No observ ation record ed. [facility] [address] [place], [address], 03/22/2023 16:44:32 03/27/20 23 03/09/2023 US, doppl er, arter ial No observ ation record ed. [email or web address] Not Available 2023 09:40:54 04/11/19 24 04/10/2023 MAMMO , scree kit, bilat eral No observ ation record ed. [address], [place], [address], 04/25/2023 05:09:13 05/02/19 24 05/01/2023 XR, chest No observ ation record ed. [address] [place], [address], 05/02/2023 11:53:35 07/20/19 24 07/20/2023 CT, abdom en + pelvi s, w/ contr ast No observ ation record ed. [address] ([facility] Scheduling) [address] [place], [address], 08/05/2023 20:11:27 10/15/19 24 10/12/2023 trans -thor acic echoc ardio gram (TTE) (PROC ) No observ ation record ed. [address] [facility] [address], [place], [address], 10/17/2023 05:51:10 01/04/20 24 01/04/2024 cardi ac stres s test No observ ation record ed. [address] [facility] [address], [place], [address], 01/08/2024 11:54:07 05/01/19 25 04/30/2024 cardi ac acous tic wavef orm recor ding with autom ated [facility] coron narayan arter y disea se risk score (PROC ) No observ ation record ed. [address] [facility] [address], [place], [address], 05/01/2024 21:35:16 Result Notes None recorded. Problems Name Problem SNOMED Code Status Onset Date Resolution Date Notes Provider Name and Address Organization Details Recorded Time Disorder of vitamin D 081210422 Active Not Available [facility] 3 07:15:16 Ankle pain 157612148 Completed 08/09/2017 BENJA Shanonn - [facility] 8 18:32:29 Pain radiatin g to right leg 384835998 Completed 201708/09/2017 BENJA Shannon - [facility] 9 16:59:55 Pain radiatin g to right leg 647797561 Completed 201712/16/2018 BENJA Shannon - [facility] 9 16:59:55 Pain in left knee Completed 201812/16/2018 BENJA Shannon - [facility] 9 16:59:48 Neck pain 37116739 Completed 201812/16/2018 BENJA Shannon - [facility] 9 17:00:16 Low back pain 292212999 Active 2018 Not Available [facility] 3 07:15:16 Family history of coronary arterios clerosis 261213359 Active 2018 Not Available [facility] 3 07:15:16 Pruritus ani 85120778 Active 2018 Not Available [facility] 3 07:15:16 Group B Streptoc occus carrier 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 3 07:15:16 Fibromya lgia 726303568 Active 2019 Not Available [facility] 3 07:15:16 Spasm 27674164 Active 2019 Generali zed Not Available [facility] 3 07:15:16 Anxiety 47939914 Active 2019 Not Available [facility] 3 07:15:16 Temporom andibula r joint disorder 68489647 Active 2019 Not Available [facility] 3 07:15:16 Disorder of maxilla 765245558 Active 2019 Not Available [facility] 3 07:15:16 Abnormal weight loss 119518310 Active 2019 Not Available [facility] 3 07:15:16 Tremor 66068533 Active 2019 Not Available [facility] 3 07:15:16 Tachycar love 7222713 Active 2019 Not Available [facility] 3 07:15:16 Abnormal thyroid hormone 021300065 Active 2019 Not Available [facility] 3 07:15:16 Thyroid nodule 556569190 Active 2019 Not Available [facility] 3 07:15:16 Otitis externa 4535312 Active 2020 Not Available [facility] 3 07:15:16 Hypergly cemia 13318031 Active [address] [facility] 3 07:15:16 Popping sensatio n in ear 333522858 Active 2020 Not Available [facility] 3 07:15:16 History of SARS-CoV -2 34317683709 9753386 Active 2020 Not Available [facility] 3 07:15:16 Tobacco dependen ce syndrome 05159507 Active 2021 Not Available [facility] 3 07:15:16 Eruption 867640734 Active 2021 face Not Available [facility] 3 07:15:16 Pain in bilatera l lower legs 50864155202 504290 Active 2022 Adrian Bryant MD Attn: Accounting ,[address] [facility], [place], [address] , [place] - [facility] 3 13:31:27 Pain 23544297 Active 2022 right periscap ular area Adrian Bryant MD Attn: Accounting ,[address] [facility], [place], [address] , [place] [facility] 3 13:32:35 Chronic constipa tion 806437475 Active 2022 Adrian Bryant MD Attn: Accounting ,[address] [facility], [place], [address] , [place] - [facility] 3 13:35:16 Ferritin level below referenc e range 117349524 Active 2022 Adrian Bryant MD Attn: Accounting ,[address] [facility], [place], [address] , [place] [facility] 3 13:40:44 Vaginal discharg e 727959637 Completed 12/16/2018 Dc joseph [place] - [facility] 9 16:59:43 Acute vulvitis 82489122 Active Not Available [facility] 3 07:15:16 Gastroes ophageal reflux disease 007730128 Active Not Available [facility] 3 07:15:16 Fatigue 31374398 Completed 12/16/2018 Dc joseph [place] - [facility] 9 17:00:12 Periodic limb movement disorder 462133801 Completed 08/09/2017 Dc [place]oseph [place] [facility] 8 18:32:40 Tinea pedis 2726264 Active Not Available [facility] 3 07:15:16 Pruritus ani 16647846 Completed 08/09/2017 Dc [place]oseph [place] [facility] 9 14:52:03 Dermatit is Completed 08/09/2017 Dc joseph [place] [facility] 8 18:32:15 Bipolar disorder 52737068 Active Not Available [facility] 3 07:15:16 Allergic rhinitis 03351727 Active Not Available [facility] 3 07:15:16 Inflamma tion of cervix 91772573 Completed 08/09/2017 Dc [place]oseph [place] [facility] 8 18:32:37 Colitis 20999603 Active Not Available [facility] 3 07:15:16 Candidia sis 66917633 Completed 08/09/2017 Dc [place]oseph [place] [facility] 8 18:33:20 Decrease in appetite 06838925 Completed 08/09/2017 BENJA Shannon 8 18:33:44 On examinat ion - vaginal discharg e Completed 08/09/2017 BENJA Shannon 8 18:32:06 Irritabl e bowel syndrome 15146774 Active Not Available [facility] 3 07:15:16 Allergic conditio n 576646687 Completed 12/16/2018 BENJA Shannon 9 16:59:59 Cough 33443389 Completed 08/09/2017 BENJA Shannon 8 18:33:33 Wheezing 31786100 Completed 08/09/2017 BENJA Shannon 8 18:33:39 Tobacco user 158062173 Active Not Available [facility] 3 07:15:16 Migraine 69649411 Active Not Available [facility] 3 07:15:16 Hyperlip idemia 42517447 Active Not Available [facility] 3 07:15:16 Backache 732793177 Completed 08/09/2017 BENJA Shannon 8 18:32:02 Annular tear of lumbar disc 240487386 Active Not Available [facility] 3 07:15:16 Dysmenor baljeet 468999980 Completed 12/16/2018 BENJA Shannon 9 16:59:17 Depressi ve disorder 02739966 Active Not Available [facility] 3 07:15:16 Insomnia 146092571 Completed 08/09/2017 BENJA Shannon 8 18:33:51 Muscle spasm of cervical muscle of neck 47964146264 4 Completed 08/09/2017 BENJA Shannon 8 18:32:23 Vitamin D deficien cy 81395047 Active Not Available [facility] 3 07:15:16 Dermal mycosis 02418848 Completed 08/09/2017 Dc joseph [place] Lj [facility] 8 18:32:19 Shoulder pain 27446122 Completed 08/09/2017 [address]c [address] [facility] 8 18:32:48 Onychomy cosis 147295805 Active Not Available [facility] 3 07:15:16 Urinary tract infectio us disease 54414715 Active Not Available [facility] 3 07:15:16 Night sweats 50473263 Completed 08/09/2017 [address] [facility] 8 18:32:46 Mild depressi on 326823227 Active 2016 Not Available [facility] 3 07:15:16 Increase d frequenc y of urinatio n 571490112 Completed 201608/09/2017 [address] [facility] 8 18:32:08 HIV screenin g Completed 201608/09/2017 [address]c [address] [facility] 8 18:32:12 Candidia sis of vagina 03768569 Active 2016 Not Available [facility] 3 07:15:16 Problem Notes None recorded. Procedures Surgical History Date Name Laterality Status Provider Name and Address Organization Details Recorded Time 022 Date of Last Mammogram completed Yulia Philippe [place] - [facility] 11/22/2022 10:47:34 018 Total Abdominal Hysterectomy completed Lady Fierro PA-C Attn: Accounting,[address] [place], [address], [place] - [place] 09/07/2017 09:01:14 017 Date of Last Pap Smear completed Yulia Philippe MA [place] - [facility] 08/09/2017 14:20:54 014 Other completed Raffi Fang [place] - [place] 02/23/2014 16:02:46 012 Gallbladder Surgery completed Jerri Murphy LPN [place] - [place] 02/19/2014 08:44:34 012 Gastrointestinal Surgery completed Raffi Fang [place] - [place] 02/23/2014 16:00:49 006 Other completed Raffi Fang [place] - [facility] 02/23/2014 16:00:49 005 Ovarian Cystectomy completed Jerri Murphy LPN [place] - [facility] 02/19/2014 08:44:34 000 Tubal Ligation completed Jerri Murphy LPN [place] - [facility] 02/19/2014 08:44:34 Total hysterectomy completed Evelyn Collazo MA [place] - [facility] 09/20/2017 15:07:20 Imaging Results Imaging Date Name Status LastModified by Organization Details LastModified Time 12/19/2021 MAMMO, screening, bilateral completed [email or web address] [facility] [address] [place], [address], 12/22/2021 15:46:02 01/10/2022 US, breast, bilateral completed YESICA [facility] [address] [place], [address], 01/11/2022 20:34:09 01/14/2022 XR, knee completed [facility] [address] [place], [address], 11/22/2022 10:57:26 03/25/2022 XR, ribs, unilateral completed [email or web address] [facility] [address] [place], [address], 03/31/2022 06:00:56 10/28/2022 CT, abdomen + pelvis, w/ contrast completed [email or web address] [place] [address] [address] [place], [address], 11/02/2022 01:14:05 12/14/2022 US, breast, bilateral completed [facility] [address] [place], [address], 12/15/2022 08:50:31 12/14/2022 MAMMO, diagnostic, digital, bilateral completed [facility] [address] [place], [address], 01/26/2023 16:43:04 12/14/2022 US, pelvis, transabdominal + transvaginal completed [email or web address] [place], [address], 01/26/2023 16:43:05 01/21/2023 CT, abdomen + pelvis, w/ contrast completed [email or web address] [place], [address], 01/26/2023 16:43:03 02/13/2023 US, pelvis, transabdominal + [facility] [address] [place], [address], 03/14/2023 16:39:16 03/08/2023 CT, abdomen + pelvis, w/ contrast completed [facility] [address] [place], [address], 03/22/2023 16:44:32 03/09/2023 US, doppler, arterial completed [facility] Information not available 04/04/2023 09:40:54 04/10/2023 MAMMO, screening, bilateral completed [address], [address], 04/25/2023 05:09:13 05/01/2023 XR, chest completed [address] [place], [address], 05/02/2023 11:53:35 07/20/2023 CT, abdomen + pelvis, w/ contrast completed [address] ([facility]) [address] [place], [address], 08/05/2023 20:11:27 10/12/2023 trans-thoracic echocardiogram (TTE) (PROC) completed [address] [facility] [address], [place], [address], 10/17/2023 05:51:10 01/04/2024 cardiac stress test completed [address] [facility] [address], [place], [address], 01/08/2024 11:54:07 04/30/2024 cardiac acoustic waveform recording with automated analysis and generation of coronary artery disease risk score (PROC) completed [address] [facility] [address], [place], [address], 05/01/2024 21:35:16 Procedure Notes None recorded. Medical [...] (muscle pain) Not available Not available 02/19/2014 40840 RxNorm Not Available Not Available Not Available [...] Updated DateTime 12/02/2021 157.48 cm 23.1 kg/m2 49754.07 g 116 mm[Hg] 66 mm[Hg] Beckie Kramer MA [place] - [facility] 2 17:00:56 Date Recorded Body height Body mass index (BMI) Body weight Systolic blood pressure Diastolic blood pressure Provider Name and Address Organization Details Last Updated DateTime 11/22/2022 157.48 cm 24.1 kg/m2 73174.19 g 112 mm[Hg] 70 mm[Hg] Yulia Philippe MA [place] - [facility] 3 10:55:32 Date Recorded Body height Body mass index (BMI) Body weight Systolic blood pressure Diastolic blood pressure Provider Name and Address Organization Details Last Updated DateTime 01/26/2023 157.48 cm 24.1 kg/m2 02231.19 g 112 mm[Hg] 70 mm[Hg] Jillian Hdz MA [facility] S[facility] 3 15:52:16 Date Recorded Body height Body mass index (BMI) Body weight Heart rate Body temperature Oxygen saturation Oxygen saturation in Arterial blood by Pulse oximetry Systolic blood pressure Diastolic blood pressure Provider Name and Address Organization Details Last Updated DateTime 3 157.48 cm 24.5 kg/m2 75850.3 8 g 99 /min 98.1 [degF] 98 % 98 % 106 mm[Hg] 76 mm[Hg] Peggy Short [place] [facility] 3 12:28:37 Date Recorded Body height Body mass index (BMI) Body weight Systolic blood pressure Diastolic blood pressure Provider Name and Address Organization Details Last Updated DateTime 03/15/2023 157.48 cm 24.3 kg/m2 31822.79 g 112 mm[Hg] 74 mm[Hg] Micki Santillan [place] - [facility] 3 11:04:00 Social History Question Answer Notes LastModified by Organizat ion Details LastModified Time Tobacco Smoking Status Former Smoker Yulia Philippe MA [facility], [place] - [facility] 11/22/2022 10:53:53 Do You Have An Advance Directive? No [email or web address] Information not available 06/15/2014 What Is Your Level Of Alcohol Consumption? Occasional Information not available 02/23/2014 Is Blood Transfusion Acceptable In An Emergency? Yes Information not available 06/15/2014 What Is Your Level Of Caffeine Consumption? Occasional Information not available 07/07/2020 How Much Tobacco Do You Chew? None [email or web address] Information not available 06/15/2014 Are You Currently Employed? No Information not available 06/15/2014 What Type Of Diet Are You Following? REGULAR [email or web address] Information not available 06/15/2014 Which Illicit Or Recreational Drugs Have You Used? Patient Denies [email or web address] Information not available 11/30/2014 Do You Or [...] available 07/07/2020 Performs Monthly Self-breast Exam? Yes [email or web address] Information not available 06/15/2014 Do You Use Protection During Sex? No [email or web address] Information not available 06/15/2014 What Is Your Relationship Status? Single [email or web address] Information not available 06/15/2014 Do You Use Your Seat Belt Or Car Seat Routinely? Yes Information not available 07/07/2020 Seat Belts Used Routinely Yes [email or web address] Information not available 06/15/2014 Are You Sexually Active? Yes [email or web address] Information not available 06/15/2014 Do You Have Smoke And Carbon Monoxide Detectors In Your Home? Yes Information not available 07/07/2020 At What Age Did You Start Smoking Tobacco? 13 [email or web address] Information not available 06/15/2014 Are You Passively [...] 11/22/2022 Do You Use Sunscreen Routinely? No [email or web address] Information not available 06/15/2014 Has Tobacco Cessation [...] 02/23/2014 What is your exercise level? Occasional [email or web address] Information not available 06/15/2014 Mental Status None [...] History Condition Response Coronary Artery Disease N Kidney Cyst N Blood Diseases N Hyperthyroidism N Blood disorders N Blood Transfusion N MRSA Y Emphysema N Depression Y COPD N Blood Clots N Pneumonia N Premature N Peripheral Arterial Disease N Edema N TIA N Headaches/Migraines N [...] Disorder N Colon Polyps N Heart Attack (CT) N Diabetes N Cardiomyopathy N Blood Transfusions [...] Tdap 07/24/2016 completed Not Available [facility]2019 02:42:35 Past Encounters Encounter ID Performer Location Encounter Start Date Encounter Closed Date Diagnosis/Indication Diagnosis SNOMED-CT Code Diagnosis ICD10 Code Diagnosis Note [id number] R[address]Y Nagy [address] [place] [address] 02/23/2014 15:45:36 02/23/2014 16:49:48 Tobacco user [id number] Annular te ar of lumbar disc 803193612 Backache 129062918 Ankle pain 275793330 Chr onic Disorder of vitamin D 735283256 [id number] Dc Brooks Roman ([employer]) [address] [place] [address]14[address] 0 03/03/2014 10:40:31 03/03/2014 11:34:26 [id number] FERNANDO Reilly ([employer]) [address] [place] [address] 06/15/2014 12:05:02 06/15/2014 13:32:05 Vaginal discharge 984901739 Acute vulvitis 77144004 [id number] FERNANDO Mzt [address] [place] [address] 06/25/2014 10:54:58 06/25/2014 11:45:28 Ankle pain 509128670 Chronic Annular te ar of lumbar disc 856623558 Gastroesop hageal reflux disease 204438325 Protonix has failed Prilosec and Prevacid Disorder of vitamin D 738758765 Fatigue 86048256 Periodic l imb movement disorder 291876893 R/o restless legs syndrome Tinea pedis 0339078 [id number] Lady Fierro PA-C Lamar [place] [address] [place] [address] 07/30/2014 11:02:05 07/30/2014 11:39:00 Dermatitis 702449562 Told her to not use alcohol or vinegar on patch. Advised to use vasoline often and to apply a large layer at night. [id number] Rochelle Allen MA Lamar [place] [address] [place] [address] 08/17/2014 12:05:48 08/17/2014 12:51:47 Disorder of vitamin D 456640528 Will check vitamin D levels today - if low will do another 2 months of vitamin D Bipolar disorder 00750592 Would like to see a psychiatri st Allergic rhinitis 82775033 Advised to try Zyrtec as well. Will possibly help with atopic dermatitis as well. Dermatitis 638921900 Wou ld like to see a dermatolog ist when she has good insurance come August. Will see if Zyrtec and fluticason e are helpful in alleviatin g what I suspect is the atopic march. [id number] FERNANDO Reilly ([employer]) [address] [place] [address] 0 09/02/2014 10:05:46 09/02/2014 11:54:50 Inflammation of cervix 89120911 Bleeding to posterior canal noted Colitis 23340199 [place] c tenderness noted. No cervical motion tenderness . Streptococcus carrier 519950005 [id number] Dc Brooks Roman ([employer]) [address] [place] [address]98[address] 0 09/16/2014 15:37:45 09/16/2014 17:28:07 Vaginal discharge 872244260 NORMAL [id number] Roman (Adult Med) [address] [place] [address] 44756-886 0 10/23/2014 11:33:11 10/23/2014 12:23:17 Fatigue 89001185 Decrease in appetite 19026134 Would like healthier eating options [id number] FERNANDO Reilly ([employer]PER[employer]) [address] [place] [address] 0 11/30/2014 10:19:29 11/30/2014 13:38:25 On examination - vaginal discharge 635281084 Irritable bowel syndrome 77381792 [id number] LEXI Cantu (Adult Med) [address] [place] [address] 72393-611 0 01/06/2015 16:02:13 01/06/2015 22:27:12 Allergic condition 116219137 T78.40XS Cough 72973979 R05 If the cough proceeds to a sinus infection, which she states generally happens when she begins with this it turns into bronchitis and then into a sinus infection. If sx's persist for 10 day she will supervisor opening and picking the Zpack. She generally lets this run its course and sometimes it does not turn into a sinus infection but would like the zpack there just in case it does Wheezing 67213443 R06.2 Audible wheezing at home - states that she feels like she cannot clear her throat and that it is tightening [id number] LEXI Cantu (Adult Med) [address] [place] [address]85-345 0 04/28/2015 14:07:38 04/28/2015 14:48:24 Tobacco user 604176413 Z72.0 RTC 1 month for f/u Discussed [...] of soda Disorder of vitamin D 38 3939215 E55.9 WIll check today and fill accordingl y Allergic condition 29203 1001 T78.40XS [id number] LEXI Cantu (Adult Med) [address] [place] [address] 77166-427 0 05/27/2015 14:11:05 05/27/2015 14:45:24 Insomnia 426818760 G47.00 Will initiate doxepin 50mg qPM at bedtime RTC 3 weeks Muscle spa sm of cervical muscle of neck 4800528839 04 M62.838 Boomgirish has worked for her in the past Headache likely 2/2 muscle spasms and stress Tobacco user 679401383 Z 72.0 Quit cold turkey - last cigarette 1 week ago Depressive disorder 3548 900 F32.9 Advised to make an appointmen t with psychiatry - she has no interest in this at this time [id number] LEXI Cantu (Adult Med) [address] [place] [address] 11115-891 0 08/16/2015 11:59:57 08/16/2015 13:28:12 Depressive disorder 26445202 F32.9 Advised to make an appointmen t with psychiatry - she has no interest in this at this time Vitamin D deficiency 347 24439 E55.9 Will recheck vitamin d today Insomnia 856676697 G47.0 0 Continue doxepin 50mg as needed Adult heal th examination 828213648 Z00.01 Dermal mycosis 94184224 B36.9 Will initiate fluconazol e 200mg QD RTC in one month if no improvemen t with medicaiton Tobacco user 542346459 Z 72.0 Very stressed right now - states that her oldest is going to school in [place] and then her youngest is causing her issues [id number] LEXI Cantu (Adult Med) [address] [place] [address] 89961-005 0 10/08/2015 09:29:59 10/08/2015 12:23:46 Dermal mycosis 87218558 B36.9 Will prescribe Lamasil cream Shoulder pain 89200025 M 25.511 Will begin with PT Onychomycosis 970264094 B35.1 Greatly improved with healthy nail bases, no need for medication at this time [id number] MD Roman [facility] ([employer]) [address] [place] [address] 65044[address] 0 11/17/2015 10:29:21 11/22/2015 12:33:33 Gynecologic examination 85417947 Z01.419 Urinary tr act infectious disease 35325666 N39.0 Night sweats 97313928 R6 1 Candidiasis 68895997 B37 .9 [id number] LEXI Cantu (Adult Med) [address] [place] [address] 11727-529 0 01/13/2016 12:32:25 01/13/2016 17:49:44 Gastroesophageal reflux disease 659912517 K21.9 Will refer back to GI for evalDiscus sed that her emotional stress can cause her physical sx's - if she does not get any relief from GI advised that I recommend she see psychShe has tried numerous PPI, bentyl, Zantac to no relief Hyperlipidemia 62018682 E78.5 Will recheck today Vitamin D deficiency 347 64635 E55.9 Will recheck vitamin d today [id number] Dc Owens [facility] ([employer]PER[employer]) [address] [place] [address] 46[address] 0 02/03/2016 14:49:45 02/03/2016 22:07:04 Dysmenorrhea 142776379 N94.6 Dysfunctio nal uterine bleeding 00745003 N93.8 Candidiasis of vagina 72 082660 B37.3 Chronic pe lvic pain of female 744303978 R10.2 Irritable bowel syndrome 09625396 K58.9 Bipolar disorder 8125226 4 F31.9 [id number] LEXI Cantu (Peds) [address] [place] [address] 95898-502 0 07/24/2016 16:26:11 07/25/2016 13:35:32 Increased frequency of urination 949958841 R35.0 UA negative - advised to drink plenty of waterStay away from alcohol and any sugary drinks Active or passive immunization 507093133 Z23 HIV screening 342803338 Z11.4 Mild depression 48978288 3 F32.0 having some issues with her youngest daughter and they are going to family counseling Does not want to see psych at this time Candidiasis of vagina 72 681600 B37.3 Per patient - will treat Tobacco user 584815210 Z 72.0 Very stressed right now - states that her oldest is going to school in [place] and then her youngest is causing her issues Muscle spa sm of cervical muscle of neck 4428180446 04 M62.838 Hasmukh has worked for her in the past Headache likely 2/2 muscle spasms and stress [id number] LEXI Cantu (Adult Med) [address] [place] [address] 65246[address]887 0 09/12/2016 15:13:36 09/13/2016 10:16:59 Backache 439775118 M54.9 Will refer to PT - advised to increase exercise, get in the water, and keep moving Insomnia 590668143 G47.0 0 d/t her possibly being manic at this time, discussed with her that she should re-establi sh with psych - she agreed with plan and will find psych Spasm of back muscles 20 9586626 M62.830 Will refer to PT - advised to increase exercise, get in the water, and keep moving Bipolar disorder 2084340 4 F31.9 Schedule an appointmen t with psych - either here or advised to contact her insurance to see if she could get into someone fast Tobacco user 121480835 Z 72.0 Advised to quit Gastroesop hageal reflux disease 007801834 K21.9 Advised to f/u with GI [id number] Dc Owens ([employer]PER[employer]) [address] [place] [address] 09722-586 0 03/01/2017 16:33:47 03/02/2017 10:17:20 Gynecologic examination 11238889 Z01.411 Irregular intermenstrual bleeding 96840228 N92.1 [id number] LEXI Cantu (Adult Med) [address] [place] [address] 52530-745 0 05/14/2017 14:17:19 05/14/2017 16:38:16 Pain radiating to right leg 645536299 M79.604 lower back pain with radiation to posterior right leg - will begin with MRI at this time d/t chronicity and failed PT Hyperlipidemia 29533205 E78.5 Will recheck today Vitamin D deficiency 347 86194 E55.9 Will recheck vitamin d today [id number] Dc Owens ([employer]PER[employer]) [address] [place] [address] 97348-126 0 08/09/2017 13:50:04 08/09/2017 15:25:57 History of endometrial ablation 4805511125 84466 Z98.890 History of female sterilization 680508471 Z92.0 Bipolar disorder 0454268 4 F31.9 Abnormal u terine bleeding 8335075489 9100 N93.9 failed medical management , failed minor surgical management , prior sterilizat ion. Desires definitive surgical therapy. Bladder mu scle dysfunction - overactive 266615489 N32.81 Tobacco user 893137343 Z 72.0 [id number] Dc Owens ([employer]PER[employer]OR) [address] [place] [address] 90751-021 0 09/20/2017 14:54:35 09/20/2017 15:57:34 Postoperative visit 959723095 Z09 Pathology report showed adenomyosi s and hemorrhagi c ovarian cyst.Okay to go swimming. Advised no intercours e for 6 weeks. Bipolar disorder 9429432 4 F31.9 Tobacco user 021059661 Z 72.0 Depressive disorder 3548 9007 F32.9 Constipation 16636872 K5 9.00 Bladder mu scle dysfunction - overactive 910108838 N32.81 [id number] Dc Owens ([employer] SUPERVISOR) [address] [place] [address] 07160-115 0 10/08/2017 15:46:14 10/09/2017 15:39:57 Postoperative visit 001891896 Z09 Pathology report showed adenomyosi s and hemorrhagi c ovarian cyst.Okay to go swimming. Advised no intercours e for 6 weeks. Constipation 08029788 K5 9.00 Bipolar disorder 2865470 4 F31.9 Tobacco user 485186297 Z 72.0 Depressive disorder 3548 9007 F32.9 [id number] Dc Owens ([employer] SUPERVISOR) [address] [place] [address] 76884-503 0 11/26/2017 15:59:20 11/26/2017 16:59:37 Exposure to sexually transmissible disorder 342217291 Z20.2 Postsurgic al menopause 696167253 E89.41 Vaginal discharge 383980 006 N89.8 NORMAL [id number] Dc Owens ([employer]PER[employer]OR) [address] [place] [address] 62900-226 0 12/31/2017 11:08:22 01/03/2018 11:47:32 Perimenopausal state 9585851495 81950 Z78.0 Vulvar vestibulitis 3083 3006 N94.810 Irritable bowel syndrome 29652770 K58.9 Exposure t o sexually transmissible disorder 436558857 Z20.2 [id number] MATT Cadena (Adult Med) [address] [place] [address] 37411-584 0 04/05/2018 14:00:15 04/08/2018 10:05:11 Chronic low back pain 984240450 M54.5 lower back pain with radiation to posterior right leg - will begin with MRI at this time d/t chronicity and failed PT Tobacco user 941082322 Z 72.0 advised to quit, patient not ready yet. Disorder of vitamin D 38 9982357 E56.9 [id number] MATT Cadena (Adult Med) [address] [place] [address] 26878-427 0 05/17/2018 15:24:51 05/20/2018 09:22:06 Tobacco user 085257631 Z72.0 advised to quit, patient three weeks smoke free. Acute otitis media 42516 03 H66.92 Neck pain 79170396 M54.2 [id number] Adrian Bryant MD McKinley (Adult Med) [address] [place] [address] 12269-016 0 06/27/2018 11:58:42 06/27/2018 12:56:56 Vitamin D deficiency 82270295 E55.9 Pain in left knee 959739 7619 30824 M25.562 Continue rest, ice. Apply heat in one Low back pain 493985447 M54.5 Neck pain 08440342 M54.2 [id number] Dc Cecilia Owens ([employer] SUPER[employer]OR) [address] [place] [address] 30482-272 0 08/05/2018 14:56:10 08/06/2018 14:19:36 History of total hysterectomy 705674890 Z90.710 On ERT 1mg estradiol only. has not used in over 7 days. Bipolar disorder 9539060 4 F31.9 Fibrocysti c disease of breast 91382823 N60.19 Paraverteb ral muscle spasm 22750888 M62.830 Polycystic ovaries 96315 008 E28.2 Low back pain 644927532 M54.5 [id number] [facility] [address] [place] [address] 91131-148 0 09/26/2018 16:30:01 09/27/2018 11:42:28 Family history of coronary arteriosclerosis 784741830 Z82.49 Tobacco user 613708797 Z 72.0 Hyperlipidemia 28580992 E78.5 Pain in left knee 949333 1674 26008 M25.562 Continue rest, ice. Apply heat in one Gastroesop hageal reflux disease 165119277 K21.9 Vitamin D deficiency 347 76791 E55.9 [id number] Dc Owens ([employer] SUPERVISOR) [address] [place] [address] 65047-477 0 12/16/2018 16:07:58 12/17/2018 12:33:17 Postsurgical menopause 378155556 E89.41 History of total hysterectomy 652281028 Z90.710 Dyspareunia 10590396 N94 .10 Encouraged patient to try lubricatio n ([place] liquid, Astroglide ). [id number] Dc Owens ([employer]EL SUPERVISOR) [address] [place] [address] 0 12/31/2018 13:56:00 01/01/2019 12:35:17 Pruritus ani 88990021 L29.0 Exposure t o sexually transmissible disorder 708707444 Z20.2 Hemorrhoids 84567007 K64 .9 History of total hysterectomy 095916819 Z90.171 [id number] Dc Owens ([employer] SUPER[employer]OR) [address] [place] [address] 0 03/19/2019 14:52:23 03/20/2019 12:23:36 Exposure to sexually transmissible disorder 209060292 Z20.2 Bacterial vaginosis 4197 72294 N76.0 Tobacco user 708559114 Z 72.0 History of total hysterectomy 566811117 Z90.008 [id number] Dc Owens (RESE[employer] SUPER[employer]OR) [address] [place] [address] 0 05/12/2019 10:16:50 05/13/2019 11:53:58 Exposure to sexually transmissible disorder 852839800 Z20.2 Fibromyalgia 351907693 M 79.7 Screening mammography 24 967907 Z12.31 Bipolar disorder 6040510 4 F31.9 [id number] Dc Owens (RESE[employer]EL SUPERVISOR) [address] [place] [address] 0 06/25/2019 09:11:39 06/25/2019 18:05:30 [id number] Dc Owens (RESE[employer]EL SUPERVISOR) [address] [place] [address] 0 07/09/2019 13:44:48 07/10/2019 09:08:12 Vulvitis 56197645 N76.2 used boric acid doucheiatr ogenic Fibromyalgia 861091610 M 79.7 [id number] MD Roman Yin (Adult Med) [address] [place] [address] 0 08/18/2019 15:35:47 08/19/2019 14:20:31 Spasm 05931403 R25.2 Fibromyalgia 652583471 M 79.7 Depressive disorder 3548 9007 F32.9 Anxiety 38248698 F41.9 [id number] MD Roman Yin (Adult Med) [address] [place] [address] 20151-750 0 01/19/2020 08:50:40 01/20/2020 13:03:04 Disorder of maxilla 351303923 K08.20 F/U with dentist Temporoman dibular joint disorder 69232091 M26.609 Consider use of other nsaid. Get other dental opinion [id number] MD Roman Yin (Adult Med) [address] [place] [address] 42005-832 0 03/01/2020 09:43:53 03/02/2020 09:30:55 Abnormal weight loss 252846614 R63.4 Abnormal t hyroid hormone 181748804 R94.6 Tachycardia 5395886 R00. 0 Tremor 66310303 R25.1 [id number] Dc Owens ([employer] SUPERVISOR) [address] [place] [address] 23966-001 0 07/07/2020 08:14:08 07/13/2020 06:38:17 Screening mammography 44125311 Z12.31 [id number] MD Roman Yin (Adult Med) [address] [place] [address] 84179-706 0 09/29/2020 12:49:35 09/30/2020 07:38:01 Otitis externa 4580449 H60.92 [id number] NELI SIERRA ([employer]EL SUPERVISOR) [address] [place] [address] 04209-042 0 10/13/2020 14:55:31 10/28/2020 12:34:54 Mass of right breast 2381665450 5835271 N63.10 -Lump in R breast x1 month, doubled in size in 2 days now with overlying erythema-L ast mammogram was 07/2020, unremarkab le except for small cysts in b/l breasts-Fa hallie hx of breast cancer in maternal aunt-Hx of dense breast tissue and benign cysts-Orde r for diagnostic mammogram and breast US given today Skin lesion 76634067 L98 .9 -Small 0.5cm macule on L breast with irregular borders-De rm referral sent today for skin check [id number] MD Roman Yin (Adult Med) [address] [place] [address] 57944-401 0 01/05/2021 15:27:48 01/11/2021 10:36:35 Gastroesophageal reflux disease 725884651 K21.9 Hyperlipidemia 28066171 E78.5 Irritable bowel syndrome 11498222 K58.9 Abnormal t hyroid hormone 501871290 R94.6 Hyperglycemia 08118078 R 73.9 Vitamin D deficiency 347 59799 E55.9 Popping se nsation in ear 454724201 H93.299 Pt to start cetirizine [id number] Juan Owens (RESE[employer]EL SUPERVISOR) [address] [place] [address] 59749-575 0 03/03/2021 09:48:33 03/11/2021 14:16:05 Venereal disease screening 118413418 Z11.3 Z72.89 Vaginal discharge 015228 006 N89.8 Patient concerned for candidiasi s. - no evidence of infection. Common use of wet-wipes. Denies intravagin al cleaning. Report history of Chronic BV. Also reports swelling and some pelvic pressure. Previously seen by PT and Urogynecol ogist. Mild anterior prolapse today. Encouraged follow up with previously [facility] care team. Pap up to date: 01/2017 = NILM, HPV neg. next pap 01/2022. [id number] MD Roman Yin (Adult Med) [address] [place] [address] 13125-622 0 03/15/2021 11:16:30 03/16/2021 13:35:31 History of SARS-CoV-2 6538959518 87420511 Z86.16 Will order REGEN-COV [id number] FERNANDO Gardner (Adult Med) [address] [place] [address] 77790-233 0 03/22/2021 10:14:04 03/22/2021 10:24:34 [id number] FERNANDO Gardner (Adult Med) [address] [place] [address] 91470-466 0 04/12/2021 15:22:46 04/12/2021 16:09:56 [id number] MD Roman Yin (Adult Med) [address] [place] [address] 49410-488 0 04/12/2021 16:57:19 04/15/2021 11:41:23 Tobacco dependence syndrome 46892875 F17.200 Discussed choosing specific start date after beginning wellbutrin SR [id number] FERNANDO Gardner (Adult Med) [address] [place] [address] 20367-811 0 05/16/2021 15:50:21 05/17/2021 09:23:08 [id number] MD Roman Yin (Adult Med) [address] [place] [address] 42655-991 0 08/11/2021 16:22:04 08/12/2021 11:21:58 Onychomycosis 707212413 B35.1 [id number] NELI SIERRA ([employer] SUPERVISOR) [address] [place] [address] 73122-857 0 09/28/2021 15:08:36 09/30/2021 11:05:21 Acute vaginitis 29203131 N76.0 Will treat for vaginal candidiasi s due to history with Diflucan 150 mg. Nuswab completed today. Will treat other infections if indicated per results. RTC if symptoms persist. [id number] NELI SIERRA (RESE[employer]EL SUPERVISOR) [address] [place] [address] 54086-907 0 12/02/2021 16:30:35 12/15/2021 09:50:02 Gynecologic examination 04353928 Z01.419 Pelvic exam unremarkab le.-Cervic al cancer screening: Hysterecto [id number].-Di et/exercis e: Counseled regarding importance of physical activity, healthy diet and appropriat e calcium / vitamin D intake.- Return to clinic in 1 year Venereal d isease screening 512323790 Z11.3 Pt reporting intermitte nt vaginal swelling and dyspareuni a. PE unremarkab le. Follow up nuswab to rule out infection. Screening for malignant neoplasm of breast 175033036 Z12.31 Last breast imaging Oct 2020 and May 2021, BIRADS 2 with benign appearing cysts. Annual screening mammogram order provided. [id number] NELI SIERRA (RESE[employer]EL SUPERVISOR) [address] [place] [address] 08602-662 0 11/22/2022 10:45:49 11/29/2022 09:21:20 Multiple cysts of breast 095290945 N60.11 N60.12 Last imaging Sept 2021 with stable simple cysts in bilateral breasts, including stable right midline 11mm lesion at area of concern. New pea-sized lesion palpated on exam today in R breast, 6 o'clock. Will follow up with diagnostic imaging. Referral placed to breast surgeon to discuss management options. Cyst of left ovary [address] abd/pelvis September 2022 with two left adnexal lesions measuring up to 37mm likely representi ng dominant follicles/ cysts. Will follow up with [facility] to further assess. [id number] NELI SIERRA (RESE[employer] SUPERVISOR) [address] [place] [address] 31980-097 0 01/26/2023 15:30:23 01/31/2023 13:01:45 Cyst of left ovary 8996290036 [id number] N83.202 Pelvic abscess 606162083 K65.1 Admitted to [facility] from 01/21-01/01 3 for severe LLQ abdominal pain found to be 4cm pelvic abscess on CT. s/p IV abx and compliant with PO Amoxicilli n. Persistent but improved LLQ pain. No fever, chills, peritoneal signs, and bruising. No hospital records on file, will obtain.-Or brenda [facility] to monitor-[facility] [place] antibiotic course-Dis cussed ER precaution s for sudden worsening pain [id number] MD Roman Yin (Adult Med) [address] [place] [phone] 02/20/2023 12:03:18 02/27/2023 11:13:31 Pain in bilateral lower legs [id number] M79.661 M79.662 Will order doppler. Pt will f/u with her cardiologi st Pain [id number] R52 Chronic constipation 236 [id number] K59.09 F/u GI Ferritin l evel below reference range [id number] R77.8 [id number] NELI SIERRA (RESEARCH KENNEL SUPERVISOR) [address] [place] [address] 03/15/2023 10:50:42 04/03/2023 16:47:42 Hot sweats [id number] R61 Pt reports night sweats and hot flashes x2 weeks. Labs ordered to check hormone levels. Will f/u with patient. Increased frequency of urination [id number] R35.0 Increased frequency of urination. Denies dysuria [...] Escamilla Member ID Guarantor Name 12/02/2021 1 [facility] CARE & PUMPING PLANT OPERATOR [facility] - OPEN ACCESS III (PPO) Tootie Gleason [id number] Tootie Gleason 11/22/2022 1 [facility] HOME CARE & PUMPING PLANT OPERATOR [facility] - OPEN ACCESS III (PPO) Tootie Gleason [id number] Tootie Gleason 01/26/2023 1 [facility] CARE & PUMPING PLANT OPERATOR [facility] - OPEN ACCESS III (PPO) Tootie Gleason [id number] Tootie Gleason 02/20/2023 1 [facility] HOME CARE & PUMPING PLANT OPERATOR [facility] - OPEN ACCESS III (PPO) Tootie Gleason [id number] Tootie Gleason 03/15/2023 1 [facility] HOME CARE & PUMPING PLANT OPERATOR [facility] - OPEN ACCESS III (PPO) Tootie Gleason [id number] Tootie Gleason Notes Date Note Type Note [...] psychiatric illnesses. NELI SIERRA Attn: Accounting[address] [place], [address], [facility] [place] [place] 12/14/2021 15:54:17 11/22/2022 text/html 42yo F with [...] to cyst. NELI SIERRA Attn: Accounting[address] [facility], [place], [address], [facility] 11/23/2022 14:33:56 01/26/2023 text/html 42 yo F with his tory of IBS, L ovarian cyst presents to the clinic for a hospital follow up. She was admitted at [facility] from 01/21-01/22 for LLQ abdominal pain found [...] and lesions. NELI SIERRA Attn: Accounting[address] [facility], [place], [address], [facility] [place] [place] 01/31/2023 07:06:53 02/20/2023 text/html Pt here because of daily leg pain for the past three months. She has had leg pain in past but of lesser severity. She did see pain management about one month ago. She saw chiroptacter about two months ago but is unable to continue because of cost. Pt had also been seeing bakery pastry internship for problem associated with low ferritin.Pt was prescribed iron but is unable to tolerate oral iron. Pt has been working with GI specialist for chronic constipation. Adrian Bryant MD Attn: Accounting[address] [facility], [place], [address], [facility] 02/20/2023 13:47:52 03/15/2023 text/html Tootie is a 42 y/o F with h/o hysterectomy here for a follow up. She reports going to the ER at [facility] for abdominal pain in late December and treated for pelvic abscess. She had follow up CT recently and is here to discuss the results. She has abdominal pain that she states is due to gastritis. She is not taking any medications other than occasional famotidine. She reports hot flashes [id number]. She reports waking up in the middle of the night recently with anxiety. Also reporting increased frequency of urination. Denies dysuria, hematuria, fevers, chills, n/v. NELI SIERRA Attn: Accounting[address] [facility], [place], [address], [facility] 03/30/2023 17:31:48 OBGyn Episode Ob Episode Information Episode Created Date Number of Fetuses Patient Bloodtype Patient rh Status Prepregnancy Weight lbs Domestic Partner Domestic Partner Phone Father Name Cake Puncher Status 06/16/19 15 1 CLOSED Fetus Data First Name Last Name Admitted to NICU Weight (g) Sex Living Outcome Pediatric Complications Fetus ID Race Codes Race Delivery Type 3601.52 048 F Full Term [address]8045 Vaginal Benjie Calculation Initial Benjie Date Initial [...] Complications Tubal Sterilization Discharge Date Comments 0 [facility]-Ep idural 41 [facility] Discharge Information Feeding Method Contraceptive Method Maternal HG B and HCT Levels Ob Episode Information Episode Created Date Number of Fetuses Patient Bloodtype Patient rh Status Prepregnancy Weight lbs Domestic Partner Domestic Partner Phone Father Name Cake Puncher Status 06/16/19 15 1 CLOSED Fetus Data First Name Last Name Admitted to NICU Weight (g) Sex Living Outcome Pediatric Complications Fetus ID Race Codes Race Delivery Type 2921.13 248 F Full Term 30515 Vaginal Benjie Calculation Initial Benjie Date Initial [...] Discharge Date Comments 8 [facility] 40 [facility] Discharge Information Feeding Method Contraceptive Method Maternal HG B and HCT Levels
--- OUTSIDE RECORDS SUMMARY | 2024-06-28 22:31 | XMS_ITS | Clinical Summary ---
Author Organization [facility] Address [address] [place] [address] Care Team Providers Care Oven Operator Automatic Name Role Phone Adrian Bryant MD Primary Care Provider [phone] Source Comments [facility],non-[facility] Affiliates and Associated Physician Practices is amultiple site organization consisting of ambulatory clinics and hospital sitesin [place], [place], [place] and [place]. This disclosure is being madepursuant to the Care Everywhere program and may not contain all information available regarding this patient. Last updated 17.[facility] Allergies Active Allergy Reactions Criticality Noted Date [...] age to complete this topic Care Teams Oven Operator Automatic Relationship Specialty Start Date End Date Adrian Bryant MD [address] [place] [address] PCP - General 11/25/20
--- OUTSIDE RECORDS SUMMARY | 2024-06-28 22:31 | XMS_ITS | Clinical Summary ---
Author Organization [address] Address [address] [place] [address] Care Team Providers Care Construction Carpenters Helper Name Role Phone Dc Brooks MD Unavailable Caity Sanabria NP Unavailable [phone] Pamela Parekh MD Primary Care Provider [phone] Allergies Active Allergy Reactions Criticality Noted Date [...] 05/18/2021 Assessment & Plan (05/18/2021 3:13 PM SENIOR MOBILE SOLUTIONS ARCHITECT): I did request the chest x-ray from [facility] in [place]. I have also ordered another chest x-ray [...] 11/05/2019 Assessment & Plan (05/18/2021 3:11 PM SENIOR MOBILE SOLUTIONS ARCHITECT): The patient was once again encouraged to [...] complication Assessment & Plan (05/18/2021 3:11 PM SENIOR MOBILE SOLUTIONS ARCHITECT): The patient was given sample of Breztri [...] Trelegy. Assessment & Plan (06/04/2019 10:51 AM SENIOR MOBILE SOLUTIONS ARCHITECT): The patient did have significant improvement following bronchodilators. I will give her a trial of Symbicort 160/4.5 and albuterol MDI to see if this improves her symptoms. Shortness of breath 05/14/2019 Assessment & Plan (05/14/2019 8:43 AM SENIOR MOBILE SOLUTIONS ARCHITECT): The patient quit smoking 2 months ago and smoked up to 1 pack of cigarettes a day for 27 years. With her dyspnea on exertion, I will check full PFTs and a 6 minute walk test. Other chest pain 05/14/2019 Assessment & Plan (06/04/2019 10:52 AM SENIOR MOBILE SOLUTIONS ARCHITECT): I will hold off on a CT angiogram of the chest at this time since she felt like the chest pain improved after the nebulizer treatment. Assessment & Plan (05/14/2019 8:42 AM SENIOR MOBILE SOLUTIONS ARCHITECT): The patient has had a previous cardiac [...] Type Department Care Team Description 04/16/2024 Telephone [facility] [address] [place] [address] Lashay Carney RN from Last [...] on file Legal Sex Female 9:08 PM SENIOR MOBILE SOLUTIONS ARCHITECT Gender Identity Female 07/01/2021 12:01 PM CDT Sexual Orientation Straight 07/01/2021 12 :01 PM CDT Obstetrics History Last Filed Vital Signs Vital Sign Reading Time Taken Comments Blood Pressure 112/79 09/04/2023 3:17 PM CDT Pulse 71 09/04/2023 3:17 PM CDT Temperature 36.5 C (97.7 F) 11/05/2019 10:41 AM CDT Respiratory Rate 18 05/18/2021 2:44 PM SENIOR MOBILE SOLUTIONS ARCHITECT Oxygen Saturation 98% 05/18/2021 2:44 PM SENIOR MOBILE SOLUTIONS ARCHITECT Inhaled Oxygen Concentration - - Weight 56.7 kg (125 lb) 02/14/2024 12:21 PM SENIOR MOBILE SOLUTIONS ARCHITECT Height 157.5 cm (5' 2 ) 02/14/2024 12:21 PM SENIOR MOBILE SOLUTIONS ARCHITECT Body Mass Index 22.86 02/14/2024 12:21 PM SENIOR MOBILE SOLUTIONS ARCHITECT Plan of Treatment Health Maintenance Due Date [...] patient's age to complete this topic Insurance anchor.travel OPEN ACCESS anchor.travel OPEN ACCESS anchor.travel OPEN ACCESS Care Teams Construction Carpenters Helper Relationship Specialty Start Date End Date Pamela Parekh MD PCP - General Family Medicine 09/04/23 Dc Brooks MD Obstetrics and Gynecology 05/14/19 Caity Sanabria NP Nurse Practitioner Nurse Practitioner 01/12/22
--- NOTE | 2024-06-29 01:00 | PC.NURSE ---
pt to scrap burner I am going to leave and come back in the morning. I have been here for 3 hours already.
--- OUTSIDE RECORDS SUMMARY | 2024-06-29 01:06 | XMS_ITS | CONTINUITY OF CARE DOCUMENT ---
Author Name salima, salima Address Unknown Organization [facility] Address [address] [place] [address] Phone [phone] Care Team Providers Care College Or University Faculty Member Name Role Phone Sisi BALTAZAR, Amor Mahoney Unavailable [phone] YOANDY BALTAZAR, GERMAIN Champagne Unavailable VINOD BALTAZAR, CHELI Khanna Unavailable PROBLEMS Condition Status Date Provider Notes Family history of familial hypercholesterolemia active Amor Laird MD Elevated Lipoprotein(a) active Amor Laird MD ANXIETY DISORDER active ? Laurence Hannon MD DEPRESSION active ? Laurence Hannon MD Hypercholesterolemia active Gabion zhang CHEST PAIN-TYPE TO BE DETERMINED active [...] In-person encounter Office Visit Amor Laird MD [facility] Cardiology examination - In-person encounter Office Visit Amor Laird MD [facility] - In-person encounter Office Visit Amor Laird MD [facility] - In-person encounter Office Visit Amor Laird MD [facility] Cardiology examination - In-person encounter Office Visit Benoit Cates MD [facility] - In-person encounter Office Visit Amor Laird MD [facility] - In-person encounter Office Visit Amor Laird MD [facility] Tobacco use - In-person encounter Office Visit Amor Laird MD [facility] CHEST PAIN - In-person encounter Office Visit Amor Laird MD [facility] CHEST PAINTobacco useAbnormal nuclear stress test - NL cardiac CT 09/2018 calcium score 0Palpitations - In-person encounter Office Visit Amor Laird MD [facility] Abnormal nuclear stress test - NL cardia c CT 09/2018 calcium score 0 - In-person encounter Office Visit Amor Laird MD [facility] HypercholesterolemiaCHEST PAIN-TYPE TO B E DETERMINEDSHORTNESS OF BREATHPALPITATIONSTobacco useBipolar disorderFamily History Premature CAD - In-person encounter Office Visit Laurence Hannon MD [facility] CHEST PAIN - In-person encounter Office Visit Laurence Hannon MD [facility] - In-person encounter Office Visit Laurence Hannon MD [facility] ANXIETY DISORDERDEPRESSIONHypercholesterolemia VITAL SIGNS Date Observation Value Provider Body Mass Index (Ratio) 23.26 kg/m2 Amor Laird MD oxygen saturation, oximetry 99 % Ariel Alvarenga blood pressure, cuff size regular Juan Luis wilson Alvarenga blood pressure, diastolic 87 mm[Hg] Juan Luis lemusn Alvarenga blood pressure, systolic 106 mm[Hg] Dali malin Alvarenga pulse rate 90 /min Juan [facility] clare[facility] Alvarenga weight E&M 127.2 [lb_av] Juan Luisaron Alvarenga height E&M 62 [in_i] [facility] Body Mass Index (Ratio) 23.59 [...] blood pressure, diastolic 84 mm[Hg] Mi gurwinder Yancey blood pressure, systolic 122 mm[Hg] Manuel tonja Yancey oxygen saturation, oximetry 98 % Cortney Wynn respiratory rate E&M 16 /min Cece Wynn pulse rate 75 /min Cortney bray weight E&M 125 [lb_av] Cortney bray height E&M 62 [in_i] Cortney bray Body Mass Index (Ratio) 22.86 kg/m2 Juan hoffman Rafael pulse rate 90 /min Gabino [facility] erg blood pressure, diastolic 86 mm[Hg] Al duglas Rafael blood pressure, systolic 124 mm[Hg] Sridevi dao Rafael weight E&M 125 [lb_av] Gabino [facility] erg height E&M 62 [in_i] [facility] erg Body Mass Index (Ratio) 25.42 kg/m2 Juan dalton Rafael blood pressure, diastolic 88 mm[Hg] Ch astity Vik blood pressure, systolic 103 mm[Hg] Randa stity Vik oxygen saturation, oximetry 98 % [facility] Vik pulse rate 98 /min [facility] Vik respiratory rate E&M 18 /min Chastit y Vik weight E&M 139 [lb_av] [facility] E&M 62 [in_i] [facility] Body Mass Index (Ratio) 24.69 kg/m2 Juan [facility] pulse rate 96 /min Gabino [facility] [employer] blood pressure, diastolic 78 mm[Hg] [facility] blood pressure, systolic 116 mm[Hg] [facility] weight E&M 135 [lb_av] Gabino [facility] [employer] height E&M 62 [in_i] [facility] erg Body Mass Index (Ratio) 25.05 [...] left arm 78 mm [Hg] [facility] blood pressure, systolic, left arm 116 mm [Hg] [facility] blood pressure, diastolic, right arm 70 m m[Hg] [facility] blood pressure, systolic, right arm 116 m m[Hg] [facility] blood pressure, resting No [facility] Body Mass Index (Ratio) 24.69 kg/m2 [facility] blood pressure, cuff size regular Cy maria Goyal blood pressure, diastolic 78 mm[Hg] Cy maria Goyal blood pressure, systolic 116 mm[Hg] Lorene Goyal respiratory rate E&M 16 /min Lidia Goyal pulse rate 97 /min iLdia amaral oxygen saturation, oximetry 97 % Lidia [...] diastolic, left arm 70 mm [Hg] Ara Meedl blood pressure, systolic, left arm 126 mm [...] LDL cholesterol, serum 130 mg/dL [facility] LDL cholesterol, serum 174 mg/dL [facility] alanine aminotransferase (SGPT), serum 17 [...] LinkLogic <200 High platelet count 254 10*3/uL [facility]ign[facility] hospitalobdulio Montes hematocrit, blood 40.6 % [facility] international normalized ratio (INR) 1.0 [facility] platelet count 230 10*3/uL Pat[facility]edign[facility] hospitalobdulio Montes hematocrit, blood 39.9 % Kathia Montes LDL cholesterol, serum 140 mg/dL [facility] cholesterol, serum 206 mg/dL Kathia Montes [...] week 50,000 units 1x a week - rEmias Chau RN ZETIA 10 MG ORAL TABLET completed one daily - Gabino [facility] [place] SYMBICORT 160-4.5 MCG/ACT INHALATION AEROSOL completed Two puffs twice a day - Gabino [facility] [place] NORTRIPTYLINE HCL 25 MG ORAL CAPSULE completed One capsule daily - Gabino [facility] [place] NIASPAN 1000 MG ORAL TABLET EXTENDED RELEASE completed 2 tablets daily - Gabino [facility] [place] CRESTOR 40 MG ORAL TABLET completed ONE TAB. DAILY - Gabino [facility] [place] CYCLOBENZAPRINE HCL 10 MG ORAL TABLET completed One tablet at bedtime as needed - Gabino [facility] [place] PREMARIN TABLET completed Take 1 tab twice a week - Gabino [facility] [place] NAPROXEN 500 MG ORAL TABLET completed Take 1 tab twice daily as needed - Gabino [facility] [place] EVENING PRIMROSE OIL 1000 MG ORAL CAPSULE completed Take 1 tab daily in evening time - [facility] VITAMIN E 400 UNIT ORAL TABLET completed Take 1 tab twice daily - [facility] VITAMIN D3 00224 UNIT ORAL TABLET completed TAke 1 tab [...] Amor Laird MD cigarette use yes Amor Larid MD smoking status Former smoker Amor Laird [...] smoking history, tot al pack/day 1 Cortney Yancey cigarette use yes Cortney Doty carmine smoking status Current every day smoker Denzel srivastava Wynn social history reviewed E&M revi ewed - no changes required [facility] social history E&M Smoking Histo ry: P karmen currently smokes every day. P karmen has been counseled to quit. [facility] smoking/tobacco cess ation, patient education and counseling yes [facility] physical exercise, frequency, days per week no [facility] caffeine use, averag e drinks per day 1+ [facility] smoking, year quit 2019 [facility] number of years as a smoker 10+ [facility] smoking history, tot al pack/day 1 [facility] cigarette use yes [facility] smoking status Current every day smoker A wes [facility] [place] social history reviewed E&M revi ewed - no changes required [facility] physical exercise, frequency, days per [...] P karmen is a former smoker. Gabino [facility] [place] social history reviewed E&M revi ewed - no changes required [facility] smoking, year quit 2018 [facility] physical exercise, frequency, days per week no [facility] caffeine use, averag e drinks per day 1+ [facility] number of years as a smoker 10+ [facility] smoking history, tot al pack/day 1 [facility] cigarette use yes Gabino [facility] smoking status Former smoker Gabino Baird [facility] alcohol use no Aomr Laird MD social history reviewed E&M revi [...] karmen has been counseled to quit. Gabino [facility] [place] [place] social history reviewed E&M revi ewed - no changes required Amor Laird MD smoking history, tot al pack/day 1 Amor Laird MD cigarette use yes Lidia juarez physical exercise, frequency, days per week no Lidia Goyal alcohol use, average drinks per day social basis only Lidia oGyal alcohol use no Lidia Martinez cristin caffeine [...] RN FAMILY HISTORY Family Member Condition Mother TN female <65 Maternal Grandmother Family History of C oronary Artery Disease: Maternal Grandfather Family History of C oronary Artery Disease: Uncle Family History of Co ronary Artery Disease: Aunt Family History of Co ronary Artery Disease: Mother Family History Coron narayan Heart Disease female < 65: INSURANCE PROVIDERS Payer name Policy type / Coverage type Ca red libertarian [employer] Other [id number] ADVANCE DIRECTIVES Name Date DISCUSSED - NO DECISION MADE TREATMENT PLAN Date Name Performer [id number],B, No CP or SOB Her updated medication list for this problem includes: Metoprolol Tartrate 25 Mg Tablet (Metoprolol tartrate) ..... 1/2 tablet twice a day Juanpablo Sofie [id number],B,L DL 96 on Praluent. will continue current meds. Cannot tolerate statins. Her updated medication list for this problem includes: Praluent Pen 150 Mg/ml Pen Injector (Alirocumab) ..... Inject 1 pen under the skin every 2 weeks Juanpablo Carrizales [id number],S,I ntolerant of statins. F balwinder on Zetia. R emains very high (LDL 169). W ill send script for Repatha. Benoit Cates MD [id number],S, Benoit mesa MD [id number],S, Benoit mesa MD [id number],S,I ntolerant of statins. F balwinder on Zetia. R emains very high (LDL 169). Benoit Cates MD [id number],S,I nappropriate sinus tach. T ry low dose BB. Benoit Cates MD [id number],S, P t quit smoking in 03/2019. Amor Laird MD [id number],C, LDL is 180 on Zetia. She cannot [...] tablet once a day Amor Laird MD [id number],C,T he pt continues to have episodes of tachycardia with mild exertion. We discussed trying low dose Metoprolol she prefers to hold off at this time. L Amor Laird MD [id number],C,T he pt continues to have episodes of [...] nappropriate sinus tach. [facility]andy [facility] Yoandy Severance Cardiology: H er updated medication list for [...] pen under the skin every 2 weeks Junapablo Carrizales Cardiology:Intoleran t of statins. F balwinder [...] She had a recent CP admission and TN was ruled out. Stress test in the summer was normal. We discussed ILR and she will consider it further after GI workup is complete. She will contact us after her GI workup. Gabino [facility] [place] TeleHealth:Continues to have palpitations. She had a recent CP admission and TN was ruled out. Stress test in the summer was normal. We discussed ILR and she will consider it further after GI workup is complete. Gabino [facility] [place] Cardiology:She has b een on Zetia for [...] (antihyperlipidemic)) ..... 2 tablets daily [facility] Cardiology:Event mon itor showed no evidence of arrhythmia. [facility] Cardiology:Complains of more episodes of left arm and chest discomfort. Had an abnormal stress test last year but CT calcium score was 0. She is reluctant to have cardiac cath and prefers to schedule a stress test. [facility] Cardiology:Complains of more episodes of left arm and chest discomfort. Had an abnormal stress test last year but CT calcium score was 0. She is reluctant to have cardiac cath and prefers to schedule a stress test. [facility] TeleHealth:She was s tarted on [...] LDL: 174 (06/12/2019) TRI (06/12/2019) [facility] TeleHealth:Pt quit smoking in . [facility] TeleHealth:Had an ep isode of palpitations and had to go to the ER. Will obtain telesentry. [facility] Cardiology follow up :Advised ag clairen to quit. [facility] Cardiology follow up :CardioIQ lipid panel results are pending. [facility] Cardiology follow up :No recent chest pain. Myoview scan showed mild septal wall ischemia however CT coronary calcium score was 0. Will monitor her symptoms. [facility] Cardiology New Patie nt :Orders: C ardioIQ Advanced Lipid Panel with Inflammation (Quest) (27856) [facility] Cardiology New Patie nt :Orders: E KG (CPT-91857) C omplete Echo (CPT-73968) S tress Exercise Cardiolite (CPT-53705) C T, Coronary Calcium Score (CPT-33649) [facility] Cardiology New Patie nt :Pt was advised to quit. Tried Chantix in the past. Gabino Hall follow up Laurence Hannon MD follow up Laurence Hannon MD follow up: O rders: E KG (CPT-86702) Laurence Hannon MD follow up: T he following medications were removed from the medication list: Pravastatin Sodium 20 Mg Tabs (Pravastatin sodium) ..... One tab. daily BP today: 126/70 Prior BP: 116/81 (11/06/2011) C HOL: 206 (10/03/2011) LDL: 140 (10/03/2011) Laurence Hannon MD follow up: O rders: E KG (CPT-73575) BP today: 126/70 Prior BP: 116/81 (11/06/2011) [...] score Amor Laird MD completed EKG Amor Liard MD completed EKG Amor Laird MD completed [...]
--- OUTSIDE RECORDS SUMMARY | 2024-06-29 01:06 | XMS_ITS | Referral Summary ---
Author Organization [address] Address [address] [place] [address] Care Team Providers Care Seed District Sales Manager Name Role Phone Dc Brooks MD Unavailable [phone] Caity Sanabria NP Unavailable [phone] Pamela Parekh MD Primary Care Provider [phone] Encounters Date Type Department Care Team Description 04/16/2024 Telephone [facility] Center [address] [place] [address] Lashay Carney, RN from Last [...] 05/18/2021 Assessment & Plan (05/18/2021 3:13 PM RUBBER BOOTS AND SHOES REPAIRER): I did request the chest x-ray from [facility] [place] in [place]. I have also ordered another chest x-ray [...] 11/05/2019 Assessment & Plan (05/18/2021 3:11 PM RUBBER BOOTS AND SHOES REPAIRER): The patient was once again encouraged to [...] complication Assessment & Plan (05/18/2021 3:11 PM RUBBER BOOTS AND SHOES REPAIRER): The patient was given sample of Breztri [...] Trelegy. Assessment & Plan (06/04/2019 10:51 AM RUBBER BOOTS AND SHOES REPAIRER): The patient did have significant improvement following bronchodilators. I will give her a trial of Symbicort 160/4.5 and albuterol MDI to see if this improves her symptoms. Shortness of breath 05/14/2019 Assessment & Plan (05/14/2019 8:43 AM RUBBER BOOTS AND SHOES REPAIRER): The patient quit smoking 2 months ago and smoked up to 1 pack of cigarettes a day for 27 years. With her dyspnea on exertion, I will check full PFTs and a 6 minute walk test. Other chest pain 05/14/2019 Assessment & Plan (06/04/2019 10:52 AM RUBBER BOOTS AND SHOES REPAIRER): I will hold off on a CT angiogram of the chest at this time since she felt like the chest pain improved after the nebulizer treatment. Assessment & Plan (05/14/2019 8:42 AM RUBBER BOOTS AND SHOES REPAIRER): The patient has had a previous cardiac [...] on file Legal Sex Female 9:08 PM RUBBER BOOTS AND SHOES REPAIRER Gender Identity Female 07/01/2021 12:01 PM CDT Sexual Orientation Straight 07/01/2021 12 :01 PM CDT Last Filed Vital Signs Vital Sign Reading Time Taken Comments Blood Pressure 112/79 09/04/2023 3:17 PM CDT Pulse 71 09/04/2023 3:17 PM CDT Temperature 36.5 C (97.7 F) 11/05/2019 10:41 AM CDT Respiratory Rate 18 05/18/2021 2:44 PM RUBBER BOOTS AND SHOES REPAIRER Oxygen Saturation 98% 05/18/2021 2:44 PM RUBBER BOOTS AND SHOES REPAIRER Inhaled Oxygen Concentration - - Weight 56.7 kg (125 lb) 02/14/2024 12:21 PM RUBBER BOOTS AND SHOES REPAIRER Height 157.5 cm (5' 2 ) 02/14/2024 12:21 PM RUBBER BOOTS AND SHOES REPAIRER Body Mass Index 22.86 02/14/2024 12:21 PM RUBBER BOOTS AND SHOES REPAIRER Plan of Treatment Not on file Insurance [employer] OPEN ACCESS [employer] OPEN ACCESS Care Teams Seed District Sales Manager Relationship Specialty Start Date End Date Pamela Parekh MD PCP - General Family Medicine 09/04/23 Dc Brooks MD Obstetrics and Gynecology 05/14/19 Caity Sanabria NP Nurse Practitioner Nurse Practitioner 01/12/22
--- OUTSIDE RECORDS SUMMARY | 2024-06-29 01:06 | XMS_ITS | Clinical Summary ---
Author Organization [facility] [employer] Address [address] [place] [address] Care Team Providers Care Television Host Name Role Phone Adrian Bryant MD Primary Care Provider Source Comments [facility] [employer],non-[facility] Affiliates and Associated Physician Practices is amultiple site organization consisting of ambulatory clinics and hospital sitesin [place], [place], [place] and [place]. This disclosure is being madepursuant to the Care Everywhere program and may not contain all information available regarding this patient. Last updated 17.[facility] [employer] Allergies Active Allergy Reactions Criticality Noted Date [...] age to complete this topic Care Teams Television Host Relationship Specialty Start Date End Date Adrian Bryant MD [address] [place] [address] PCP - General 11/25/20
--- OUTSIDE RECORDS SUMMARY | 2024-06-29 01:06 | XMS_ITS | Clinical Summary ---
Author Organization [facility] Address [address] [place] [address] Phone Care Team Providers Care Accounts Payable Processor Name Role Phone Unavailable Primary Care Provider [...] cm (5' 2 ) 03/20/2023 2:43 PM WOODEN FURNITURE POLISHER Body Mass Index 24.66 03/20/2023 2:43 PM WOODEN FURNITURE POLISHER Plan of Treatment Health Maintenance Due Date [...] MAMMO BILAT DIAGNOSTIC Routine 04/10/2023 2:28 PM WOODEN FURNITURE POLISHER from Last 3 Months or Most Recently Relevant to Health Maintenance Results * MAMMO BILAT DIAGNOSTIC (04/10/2023 2:28 PM WOODEN FURNITURE POLISHER) Anatomical Region Laterality Modality Breast Bilateral Mammography David Baptiste MD MAMMO ORDERABLES Final Result from Last 3 Months or Most Recently Relevant to Health Maintenance Insurance [employer] OPEN ACCESS Member Subscriber Plan / Payer (Ef fective 2020-Present) Name:Tootie Gleason Relation to Subscriber:Self Name:Tootie Gleason Payer ID:Not on file Group ID:[id number] Type:HMO Address: [address] [employer] OPEN ACCESS Member Subscriber Plan / Payer (Ef fective 2020-Present) Name:Tootie Gleason Relation to Subscriber:Self Name:Tootie Gleason Payer ID:Not on file Group ID:[id number] Type:HMO Address: [address]
--- OUTSIDE RECORDS SUMMARY | 2024-06-29 01:06 | XMS_ITS | Clinical Summary ---
Author Organization [facility] Address [address] [place] [address] Care Team Providers Care Tube Maker Name Role Phone Adrian Bryant MD Primary Care Provider [phone] Medications traMADol (ULTRAM) 50 MG tablet TAKE [...] patient's age to complete this topic Insurance Well Done OPEN ACCESS [facility] Care Teams Tube Maker Relationship Specialty Start Date End Date Adrian Bryant MD [address] [place] [address] PCP - General INTERNAL MEDICINE 01/11/22
--- OUTSIDE RECORDS SUMMARY | 2024-06-29 01:06 | XMS_ITS | Clinical Summary ---
Author Organization [address] Address [address] [place] [address] Care Team Providers Care Addictions Therapist Name Role Phone Dc Brooks MD Unavailable Caity Sanabria NP Unavailable Pamela Parekh MD Primary Care Provider [phone] Allergies Active Allergy Reactions Criticality Noted Date [...] 05/18/2021 Assessment & Plan (05/18/2021 3:13 PM POWDER COMPOUNDER): I did request the chest x-ray from [facility] in [place]. I have also ordered another chest x-ray [...] 11/05/2019 Assessment & Plan (05/18/2021 3:11 PM POWDER COMPOUNDER): The patient was once again encouraged to [...] complication Assessment & Plan (05/18/2021 3:11 PM POWDER COMPOUNDER): The patient was given sample of Breztri [...] Trelegy. Assessment & Plan (06/04/2019 10:51 AM POWDER COMPOUNDER): The patient did have significant improvement following bronchodilators. I will give her a trial of Symbicort 160/4.5 and albuterol MDI to see if this improves her symptoms. Shortness of breath 05/14/2019 Assessment & Plan (05/14/2019 8:43 AM POWDER COMPOUNDER): The patient quit smoking 2 months ago and smoked up to 1 pack of cigarettes a day for 27 years. With her dyspnea on exertion, I will check full PFTs and a 6 minute walk test. Other chest pain 05/14/2019 Assessment & Plan (06/04/2019 10:52 AM POWDER COMPOUNDER): I will hold off on a CT angiogram of the chest at this time since she felt like the chest pain improved after the nebulizer treatment. Assessment & Plan (05/14/2019 8:42 AM POWDER COMPOUNDER): The patient has had a previous cardiac [...] Type Department Care Team Description 04/16/2024 Telephone [facility] [address] [place] [address] Lashay Carney RN from Last [...] on file Legal Sex Female 9:08 PM POWDER COMPOUNDER Gender Identity Female 07/01/2021 12:01 PM CDT Sexual Orientation Straight 07/01/2021 12 :01 PM CDT Obstetrics History Last Filed Vital Signs Vital Sign Reading Time Taken Comments Blood Pressure 112/79 09/04/2023 3:17 PM CDT Pulse 71 09/04/2023 3:17 PM CDT Temperature 36.5 C (97.7 F) 11/05/2019 10:41 AM CDT Respiratory Rate 18 05/18/2021 2:44 PM POWDER COMPOUNDER Oxygen Saturation 98% 05/18/2021 2:44 PM POWDER COMPOUNDER Inhaled Oxygen Concentration - - Weight 56.7 kg (125 lb) 02/14/2024 12:21 PM POWDER COMPOUNDER Height 157.5 cm (5' 2 ) 02/14/2024 12:21 PM POWDER COMPOUNDER Body Mass Index 22.86 02/14/2024 12:21 PM POWDER COMPOUNDER Plan of Treatment Health Maintenance Due Date [...] patient's age to complete this topic Insurance [employer] OPEN ACCESS [employer] OPEN ACCESS [employer] OPEN ACCESS Care Teams Addictions Therapist Relationship Specialty Start Date End Date Pamela Parekh MD PCP - General Family Medicine 09/04/23 Dc Brooks MD Obstetrics and Gynecology 05/14/19 Caity Sanabria NP Nurse Practitioner Nurse Practitioner 01/12/22
== END 2024-06-29 01:59 | disposition left against medical advice (07) ==
LOC: ANHED 06-29 01:04
PROVIDERS: PCP Family Medicine
DX: R51.9 Headache, unspecified (principal)
CPT/HCPCS: 99199

== ENCOUNTER 2024-06-29 10:59 | Emergency (ER) | payer OTHER, SELFPAY ==
--- NOTE | ~2024-06-29 | CT_ITS ---
EXAMINATION: CT sinus wo con DATE: 06/29/2024 13:05 INDICATION: Frontal sinus pain and pressure TECHNIQUE: Computed tomography (CT) of the paranasal sinuses was performed without intravenous contra st. Coronal reconstructions were obtained. The dose-length product was 140.16 mGy-cm. COMPARISON: None FINDINGS: The bilateral frontal sinuses are patent without significant inflammatory disease. The frontoethmoidal recess are also patent, as are the bilateral maxillary and sphenoid sinuses. The mastoid air cells are well aerated. Nasal septum is midline. IMPRESSION: No acute findings within the facial sinuses. No significant inflammatory disease or acute fracture is present. Reviewed, dictated and finalized at location A.
--- OUTSIDE RECORDS SUMMARY | 2024-06-29 11:02 | XMS_ITS | Clinical Summary ---
Author Organization [address] Address [address] [place] [address] Care Team Providers Care Pack Train Driver Name Role Phone Dc Brooks MD Unavailable Caity Sanabria NP Unavailable Pamela Parekh MD Primary Care Provider [phone] Allergies Active Allergy Reactions Criticality Noted Date [...] 05/18/2021 Assessment & Plan (05/18/2021 3:13 PM DROP WIRER): I did request the chest x-ray from [facility] in [place]. I have also ordered another chest x-ray [...] 11/05/2019 Assessment & Plan (05/18/2021 3:11 PM DROP WIRER): The patient was once again encouraged to [...] complication Assessment & Plan (05/18/2021 3:11 PM DROP WIRER): The patient was given sample of Breztri [...] Trelegy. Assessment & Plan (06/04/2019 10:51 AM DROP WIRER): The patient did have significant improvement following bronchodilators. I will give her a trial of Symbicort 160/4.5 and albuterol MDI to see if this improves her symptoms. Shortness of breath 05/14/2019 Assessment & Plan (05/14/2019 8:43 AM DROP WIRER): The patient quit smoking 2 months ago and smoked up to 1 pack of cigarettes a day for 27 years. With her dyspnea on exertion, I will check full PFTs and a 6 minute walk test. Other chest pain 05/14/2019 Assessment & Plan (06/04/2019 10:52 AM DROP WIRER): I will hold off on a CT angiogram of the chest at this time since she felt like the chest pain improved after the nebulizer treatment. Assessment & Plan (05/14/2019 8:42 AM DROP WIRER): The patient has had a previous cardiac [...] Type Department Care Team Description 04/16/2024 Telephone [facility] [address] [place] [address] Lashay Carney RN from Last [...] on file Legal Sex Female 9:08 PM DROP WIRER Gender Identity Female 07/01/2021 12:01 PM CDT Sexual Orientation Straight 07/01/2021 12 :01 PM CDT Obstetrics History Last Filed Vital Signs Vital Sign Reading Time Taken Comments Blood Pressure 112/79 09/04/2023 3:17 PM CDT Pulse 71 09/04/2023 3:17 PM CDT Temperature 36.5 C (97.7 F) 11/05/2019 10:41 AM CDT Respiratory Rate 18 05/18/2021 2:44 PM DROP WIRER Oxygen Saturation 98% 05/18/2021 2:44 PM DROP WIRER Inhaled Oxygen Concentration - - Weight 56.7 kg (125 lb) 02/14/2024 12:21 PM DROP WIRER Height 157.5 cm (5' 2 ) 02/14/2024 12:21 PM DROP WIRER Body Mass Index 22.86 02/14/2024 12:21 PM DROP WIRER Plan of Treatment Health Maintenance Due Date [...] patient's age to complete this topic Insurance [employer] OPEN ACCESS [employer] OPEN ACCESS [employer] OPEN ACCESS Care Teams Pack Train Driver Relationship Specialty Start Date End Date Pamela Parekh MD PCP - General Family Medicine 09/04/23 Dc Brooks MD Obstetrics and Gynecology 05/14/19 Caity Sanabria NP Nurse Practitioner Nurse Practitioner 01/12/22
--- OUTSIDE RECORDS SUMMARY | 2024-06-29 11:02 | XMS_ITS | Clinical Summary ---
Author Organization [facility] Address [address] [place] [address] Care Team Providers Care Bedspread Inspector Name Role Phone Adrian Bryant MD Primary Care Provider Source Comments [facility],non-[facility] Affiliates and Associated Physician Practices is amultiple site organization consisting of ambulatory clinics and hospital sitesin [place], [place], [place] and [place]. This disclosure is being madepursuant to the Care Everywhere program and may not contain all information available regarding this patient. Last updated 17.[facility] Allergies Active Allergy Reactions Criticality Noted Date [...] age to complete this topic Care Teams Bedspread Inspector Relationship Specialty Start Date End Date Adrian Bryant MD [address] [place] [address] PCP - General 11/25/20
--- OUTSIDE RECORDS SUMMARY | 2024-06-29 11:02 | XMS_ITS | Clinical Summary ---
Author Organization [facility] Address [address] [place] [address] Phone Care Team Providers Care Snack Stewardess Name Role Phone Unavailable Primary Care Provider [...] cm (5' 2 ) 03/20/2023 2:43 PM BUYING INTERN Body Mass Index 24.66 03/20/2023 2:43 PM BUYING INTERN Plan of Treatment Health Maintenance Due Date Last Done Comments HEPATITIS B VACCINES (1 of 3 - 19+ 3-dose series) 1997 INFLUENZA VACCINE (#1) 2023 COLORECTAL SCREENING 11/10/2023 [...] MAMMO BILAT DIAGNOSTIC Routine 04/10/2023 2:28 PM BUYING INTERN from Last 3 Months or Most Recently Relevant to Health Maintenance Results * MAMMO BILAT DIAGNOSTIC (04/10/2023 2:28 PM BUYING INTERN) Anatomical Region Laterality Modality Breast Bilateral Mammography David Baptiste MD MAMMO ORDERABLES Final Result from Last 3 Months or Most Recently Relevant to Health Maintenance Insurance [employer] O OPEN ACCESS [employer] OPEN ACCESS
--- OUTSIDE RECORDS SUMMARY | 2024-06-29 11:02 | XMS_ITS | CONTINUITY OF CARE DOCUMENT ---
Author Name salima, salima Address Unknown Organization [facility] Address [address] [place] [address] Phone [phone] Care Team Providers Care Inventory Taker Name Role Phone Sisi BALTAZAR, Amor Mahoney Unavailable [phone] YOANDY BALTAZAR, GERMAIN Champagne Unavailable VINOD BALTAZAR, [...] In-person encounter Office Visit Amor Laird MD [facility] Cardiology examination - In-person encounter Office Visit Amor Laird MD [facility] - In-person encounter Office Visit Amor Laird MD [facility] - In-person encounter Office Visit Amor Laird MD [facility] Cardiology examination - In-person encounter Office Visit Benoit Cates MD [facility] - In-person encounter Office Visit Amor Laird MD [facility] - In-person encounter Office Visit Amor Laird MD [facility] Tobacco use - In-person encounter Office Visit Amor Laird MD [facility] CHEST PAIN - In-person encounter Office Visit Amor Laird MD [facility] CHEST PAINTobacco useAbnormal nuclear stress test - NL cardiac CT 09/2018 calcium score 0Palpitations - In-person encounter Office Visit Amor Laird MD [facility] Abnormal nuclear stress test - NL cardia c CT 09/2018 calcium score 0 - In-person encounter Office Visit Amor Laird MD [facility] HypercholesterolemiaCHEST PAIN-TYPE TO B E DETERMINEDSHORTNESS OF BREATHPALPITATIONSTobacco useBipolar disorderFamily History Premature CAD - In-person encounter Office Visit Laurence Hannon MD [facility] CHEST PAIN - In-person encounter Office Visit Laurence Hannon MD [facility] - In-person encounter Office Visit Laurence Hannon MD [facility] ANXIETY DISORDERDEPRESSIONHypercholesterolemia VITAL SIGNS Date Observation Value Provider Body Mass Index (Ratio) 23.26 kg/m2 Amor Laird MD oxygen saturation, oximetry 99 % Ariel Alvarenga blood pressure, cuff size regular Juan Luis wilson Alvarenga blood pressure, diastolic 87 mm[Hg] Juan Luis lemusn Alvarenga blood pressure, systolic 106 mm[Hg] Dali malin Alvarenga pulse rate 90 /min [facility] hospital[facility] Al[facility]ga weight E&M 127.2 [lb_av] Juan Luisaron Alvarenga height E&M 62 [in_i] [facility] Body Mass Index (Ratio) 23.59 [...] Rosa Salgado weight E&M 129 [lb_av] Rosa Slagado blood pressure, cuff size large An javy [...] blood pressure, diastolic 84 mm[Hg] Mi gurwinder Warren blood pressure, systolic 122 mm[Hg] Manuel tonja Warren oxygen saturation, oximetry 98 % Cortney Wynn [...] [facility] erg height E&M 62 [in_i] [facility] erg Body Mass Index (Ratio) 25.42 kg/m2 Juan dalton Rafael blood pressure, diastolic 88 mm[Hg] Ch astity Vik blood pressure, systolic 103 mm[Hg] Randa stity Vik oxygen saturation, oximetry 98 % [facility] Vik pulse rate 98 /min [facility] Vik respiratory rate E&M 18 /min Chastit y Vik weight E&M 139 [lb_av] [facility] height E&M 62 [in_i] [facility] Body Mass Index (Ratio) 24.69 kg/m2 Juan [facility] pulse rate 96 /min Gabion [facility] [employer] blood pressure, diastolic 78 mm[Hg] [facility] blood pressure, systolic 116 mm[Hg] [facility] weight E&M 135 [lb_av] Gabino [facility] [employer] height E&M 62 [in_i] [facility] erg Body Mass Index (Ratio) 25.05 kg/m2 Juan hoffman Rafael blood pressure, cuff size regular Cy maria Gyoal blood pressure, diastolic 70 mm[Hg] Cy juan carlosa [place] blood pressure, systolic 118 mm[Hg] Lorene alhaji Goyal oxygen saturation, oximetry 98 % Lidia Goyal respiratory rate E&M 16 /min Lidia Goyal pulse rate 90 /min Lidia amaral weight E&M 137 [lb_av] Lidia amaral height E&M 62 [in_i] Lidia amaral blood pressure, diastolic, left arm 78 mm [Hg] [facility] blood pressure, systolic, left arm 116 mm [Hg] [facility] blood pressure, diastolic, right arm 70 m m[Hg] [facility] blood pressure, systolic, right arm 116 m m[Hg] [facility] blood pressure, resting No [facility] Body Mass Index (Ratio) 24.69 kg/m2 [facility] blood pressure, cuff size regular Cy [...] Interpretation Location LDL cholesterol, serum 130 mg/dL [facility] LDL cholesterol, serum 174 mg/dL [facility] alanine aminotransferase (SGPT), serum 17 1/L [...] High platelet count 254 10*3/uL [facility] Montes hematocrit, blood 40.6 % [facility] international normalized ratio (INR) 1.0 [facility] platelet count 230 10*3/uL [facility]ilbert[facility]dulio Montes hematocrit, blood 39.9 % Kathia Montes LDL cholesterol, serum 140 mg/dL [facility] cholesterol, serum 206 mg/dL Kathia Montes alanine [...] ORAL TABLET completed one daily - Gabino [facility] SYMBICORT 160-4.5 MCG/ACT INHALATION AEROSOL completed Two puffs twice a day - Gabino [facility] NORTRIPTYLINE HCL 25 MG ORAL CAPSULE completed One capsule daily - Gabino [facility] NIASPAN 1000 MG ORAL TABLET EXTENDED RELEASE completed 2 tablets daily - Gabino [facility] CRESTOR 40 MG ORAL TABLET completed ONE TAB. DAILY - Gabino [facility] CYCLOBENZAPRINE HCL 10 MG ORAL TABLET completed One tablet at bedtime as needed - Gabino [facility] PREMARIN TABLET completed Take 1 tab twice a week - Gabino [facility] NAPROXEN 500 MG ORAL TABLET completed Take 1 tab twice daily as needed - Gabino [facility] EVENING PRIMROSE OIL 1000 MG ORAL CAPSULE completed Take 1 tab daily in evening time - [facility] VITAMIN E 400 UNIT ORAL TABLET completed Take 1 tab twice daily - [facility] VITAMIN D3 59229 UNIT ORAL TABLET completed TAke 1 tab [...] smoking history, tot al pack/day 1 Cortney Warren cigarette use yes Cortney Doty carmine smoking status Current every day smoker Denzel srivastava Wynn social history reviewed E&M revi ewed - no changes required [facility] social history E&M Smoking Histo ry: P karmen currently smokes every day. P karmen has been counseled to quit. [facility] smoking/tobacco cess ation, patient education and counseling yes [facility] physical exercise, frequency, days per week no [facility] caffeine use, averag e drinks per day 1+ [facility] smoking, year quit 2019 [facility] number of years as a smoker 10+ [facility] smoking history, tot al pack/day 1 [facility] cigarette use yes [facility] smoking status Current every day smoker A wes [facility] social history reviewed E&M revi ewed - no changes required [facility] physical exercise, frequency, days per week [...] karmen is a former smoker. Gabino [facility] social history reviewed E&M revi ewed - no changes required [facility] smoking, year quit 2018 [facility] physical exercise, frequency, days per week no [facility] caffeine use, averag e drinks per day 1+ [facility] number of years as a smoker 10+ [facility] smoking history, tot al pack/day 1 [facility] cigarette use yes Gabino [facility] smoking status Former smoker Gabino Baird [facility] alcohol use no Amor Laird [...] has been counseled to quit. Gabino [facility] social history reviewed E&M revi ewed [...] physical exercise, frequency, days per week no [facility] caffeine use, averag e drinks per day yes [facility] alcohol use, average drinks per day social basis only [facility] number of years as a smoker 10 years or m ore [facility] smoking status Smoker [facility] caffeine use, averag e drinks per day [...] RN FAMILY HISTORY Family Member Condition Mother [place] female <65 Maternal Grandmother Family History of C oronary Artery Disease: Maternal Grandfather Family History of C oronary Artery Disease: Uncle Family History of Co ronary Artery Disease: Aunt Family History of Co ronary Artery Disease: Mother Family History Coron narayan Heart Disease female < 65: INSURANCE PROVIDERS Payer name Policy type / Coverage type Ca red constitution party ID [employer] Other [id number] ADVANCE DIRECTIVES Name Date DISCUSSED - NO DECISION MADE TREATMENT PLAN Date Name Performer [id number],B, No CP or SOB Her updated medication list for this problem includes: Metoprolol Tartrate 25 Mg Tablet (Metoprolol tartrate) ..... 1/2 tablet twice a day Juanpablo Sofie [id number],B,L DL 96 on Praluent. will continue current meds. Cannot tolerate statins. Her updated medication list for this problem includes: Praluent Pen 150 Mg/ml Pen Injector (Alirocumab) ..... Inject 1 pen under the skin every 2 weeks Juanpablo Carrizales [id number],S,I ntolerant of statins. F balwinder on Zetia. R emains very high (LDL 169). W ill send script for Repatha. Benoit Cates MD [id number],S, Benoit mesa MD [id number],S, Benoit mesa MD [id number],S,I ntolerant of statins. F balwinder on Zetia. R emains very high (LDL 169). Benoit Cates MD [id number],S,I nappropriate sinus tach. T ry low dose BB. Benoit Cates MD [id number],S, P t quit smoking in 03/2019. Amor Laird MD [id number],C, LDL is 180 on Zetia. She cannot [...] tablet once a day Amor Laird MD [id number],C,T he pt continues to have episodes of tachycardia with mild exertion. We discussed trying low dose Metoprolol she prefers to hold off at this time. L Amor Laird MD [id number],C,T he pt continues to have episodes of tachycardia with mild exertion. We discussed trying low dose Metoprolol she prefers to hold off at this time Amor Laird MD Cardiology Amor Laird MD Cardiology:The Patie nt was reencouraged to stop smoking. Amor Larid MD Cardiology: H er updated medication list [...] nappropriate sinus tach. Yoandy Sk[facility] Cardiology Yoandy [place] [facility]: H er updated medication list for [...] She had a recent CP admission and [place] was ruled out. Stress test in the summer was normal. We discussed ILR and she will consider it further after GI workup is complete. She will contact us after her GI workup. Gabino [facility] TeleHealth:Continues to have palpitations. She had a recent CP admission and [place] was ruled out. Stress test in the summer was normal. We discussed ILR and she will consider it further after GI workup is complete. Gabino [facility] Cardiology:She has b een on Zetia [...] Release (Niacin (antihyperlipidemic)) ..... [address] [facility] Cardiology:Event mon itor showed no evidence of arrhythmia. [facility] Cardiology:Complains of more episodes of left arm and chest discomfort. Had an abnormal stress test last year but CT calcium score was 0. She is reluctant to have cardiac cath and prefers to schedule a stress test. [facility] Cardiology:Complains of more episodes of left arm and chest discomfort. Had an abnormal stress test last year but CT calcium score was 0. She is reluctant to have cardiac cath and prefers to schedule a stress test. [facility] TeleHealth:She was s tarted on Crestor [...] 57 (06/12/2019) LDL: 174 (06/12/2019) TRI (06/12/2019) [facility] TeleHealth:Pt quit smoking in . [facility] TeleHealth:Had an ep isode of palpitations and had to go to the ER. Will obtain telesentry. [facility] Cardiology follow up :Advised ag clairen to quit. [facility] Cardiology follow up :CardioIQ lipid panel results are pending. [facility] Cardiology follow up :No recent chest pain. Myoview scan showed mild septal wall ischemia however CT coronary calcium score was 0. Will monitor her symptoms. [facility] Cardiology New Patie nt :Orders: C ardioIQ Advanced Lipid Panel with Inflammation ([facility]) (81375) [facility] Cardiology New Patie nt :Orders: E KG (CPT-93826) C omplete Echo (CPT-47943) S tress Exercise Cardiolite (CPT-17997) C T, Coronary Calcium Score (CPT-34542) [facility] Cardiology New Patie nt :Pt was advised to quit. Tried Chantix in the past. Gabino [facility] follow up Laurence Hannon MD follow up Laurence Hannon MD follow up: O rders: E KG (CPT-87538) Laurence Hannon MD follow up: T he following medications were removed from the medication list: Pravastatin Sodium 20 Mg Tabs (Pravastatin sodium) ..... One tab. daily BP today: 126/70 Prior BP: 116/81 (11/06/2011) C HOL: 206 (10/03/2011) LDL: 140 (10/03/2011) Laurence Hannon MD follow up: O rders: E KG (CPT-49622) BP today: 126/70 Prior BP: 116/81 (11/06/2011) [...]
--- OUTSIDE RECORDS SUMMARY | 2024-06-29 11:02 | XMS_ITS | Referral Summary ---
Author Organization [address] Address [address] [place] [address] Care Team Providers Care Sap Manager Name Role Phone Dc Brooks MD Unavailable [phone] Caity Sanabria NP Unavailable [phone] Pamela Parekh MD Primary Care Provider [phone] Encounters Date Type Department Care Team Description 04/16/2024 Telephone [facility] [address] [place] [address] Lashay Carney, RN from Last [...] 05/18/2021 Assessment & Plan (05/18/2021 3:13 PM PROSTHODONTIST/OWNER): I did request the chest x-ray from [facility] in [place]. I have also ordered another chest x-ray [...] 11/05/2019 Assessment & Plan (05/18/2021 3:11 PM PROSTHODONTIST/OWNER): The patient was once again encouraged to [...] complication Assessment & Plan (05/18/2021 3:11 PM PROSTHODONTIST/OWNER): The patient was given sample of Breztri [...] Trelegy. Assessment & Plan (06/04/2019 10:51 AM PROSTHODONTIST/OWNER): The patient did have significant improvement following bronchodilators. I will give her a trial of Symbicort 160/4.5 and albuterol MDI to see if this improves her symptoms. Shortness of breath 05/14/2019 Assessment & Plan (05/14/2019 8:43 AM PROSTHODONTIST/OWNER): The patient quit smoking 2 months ago and smoked up to 1 pack of cigarettes a day for 27 years. With her dyspnea on exertion, I will check full PFTs and a 6 minute walk test. Other chest pain 05/14/2019 Assessment & Plan (06/04/2019 10:52 AM PROSTHODONTIST/OWNER): I will hold off on a CT angiogram of the chest at this time since she felt like the chest pain improved after the nebulizer treatment. Assessment & Plan (05/14/2019 8:42 AM PROSTHODONTIST/OWNER): The patient has had a previous cardiac [...] on file Legal Sex Female 9:08 PM PROSTHODONTIST/OWNER Gender Identity Female 07/01/2021 12:01 PM CDT Sexual Orientation Straight 07/01/2021 12 :01 PM CDT Last Filed Vital Signs Vital Sign Reading Time Taken Comments Blood Pressure 112/79 09/04/2023 3:17 PM CDT Pulse 71 09/04/2023 3:17 PM CDT Temperature 36.5 C (97.7 F) 11/05/2019 10:41 AM CDT Respiratory Rate 18 05/18/2021 2:44 PM PROSTHODONTIST/OWNER Oxygen Saturation 98% 05/18/2021 2:44 PM PROSTHODONTIST/OWNER Inhaled Oxygen Concentration - - Weight 56.7 kg (125 lb) 02/14/2024 12:21 PM PROSTHODONTIST/OWNER Height 157.5 cm (5' 2 ) 02/14/2024 12:21 PM PROSTHODONTIST/OWNER Body Mass Index 22.86 02/14/2024 12:21 PM PROSTHODONTIST/OWNER Plan of Treatment Not on file Insurance [employer] OPEN ACCESS [employer] OPEN ACCESS Care Teams Sap Manager Relationship Specialty Start Date End Date Pamela Parekh MD PCP - General Family Medicine 09/04/23 Dc Brooks MD Obstetrics and Gynecology 05/14/19 Caity Sanabria NP Nurse Practitioner Nurse Practitioner 01/12/22
--- OUTSIDE RECORDS SUMMARY | 2024-06-29 11:02 | XMS_ITS | Clinical Summary ---
Author Organization [facility] Address [address] [place] [address] Care Team Providers Care Sheet Rock Hanger Name Role Phone Adrian Bryant MD Primary Care Provider [phone] Medications traMADol (ULTRAM) 50 MG tablet TAKE [...] patient's age to complete this topic Insurance [employer] OPEN ACCESS [facility] Care Teams Sheet Rock Hanger Relationship Specialty Start Date End Date Adrian Bryant MD [address] [place] [address] PCP - General INTERNAL MEDICINE 01/11/22
[2024-06-29 11:33] VITALS: BP 99/70; PULSE 79; RESP 20; TEMP 36.6; O2SAT 99
--- OUTSIDE RECORDS SUMMARY | 2024-06-29 12:14 | XMS_ITS | Clinical Summary ---
Author Organization [facility] Address [address] [place] [address] Care Team Providers Care Mold Bunch Trimmer Name Role Phone Adrian Bryant MD Primary Care Provider [phone] Medications traMADol (ULTRAM) 50 MG tablet TAKE [...] patient's age to complete this topic Insurance [employer] OPEN ACCESS [facility] Care Teams Mold Bunch Trimmer Relationship Specialty Start Date End Date Adrian Bryant MD [address] [place] [address] PCP - General INTERNAL MEDICINE 01/11/22
--- OUTSIDE RECORDS SUMMARY | 2024-06-29 12:15 | XMS_ITS | Referral Summary ---
Author Organization [address] Address [address] [place] [address] Care Team Providers Care Local Driver Name Role Phone Dc Brooks MD Unavailable [phone] Caity Sanabria NP Unavailable [phone] Pamela Parekh MD Primary Care Provider [phone] Encounters Date Type Department Care Team Description 04/16/2024 Telephone [facility] [address] [place] [address] Lashay Carney, RN from Last [...] 05/18/2021 Assessment & Plan (05/18/2021 3:13 PM BREAST SPLITTER): I did request the chest x-ray from [facility] in [place]. I have also ordered another chest x-ray [...] 11/05/2019 Assessment & Plan (05/18/2021 3:11 PM BREAST SPLITTER): The patient was once again encouraged to [...] complication Assessment & Plan (05/18/2021 3:11 PM BREAST SPLITTER): The patient was given sample of Breztri [...] Trelegy. Assessment & Plan (06/04/2019 10:51 AM BREAST SPLITTER): The patient did have significant improvement following bronchodilators. I will give her a trial of Symbicort 160/4.5 and albuterol MDI to see if this improves her symptoms. Shortness of breath 05/14/2019 Assessment & Plan (05/14/2019 8:43 AM BREAST SPLITTER): The patient quit smoking 2 months ago and smoked up to 1 pack of cigarettes a day for 27 years. With her dyspnea on exertion, I will check full PFTs and a 6 minute walk test. Other chest pain 05/14/2019 Assessment & Plan (06/04/2019 10:52 AM BREAST SPLITTER): I will hold off on a CT angiogram of the chest at this time since she felt like the chest pain improved after the nebulizer treatment. Assessment & Plan (05/14/2019 8:42 AM BREAST SPLITTER): The patient has had a previous cardiac [...] on file Legal Sex Female 9:08 PM BREAST SPLITTER Gender Identity Female 07/01/2021 12:01 PM CDT Sexual Orientation Straight 07/01/2021 12 :01 PM CDT Last Filed Vital Signs Vital Sign Reading Time Taken Comments Blood Pressure 112/79 09/04/2023 3:17 PM CDT Pulse 71 09/04/2023 3:17 PM CDT Temperature 36.5 C (97.7 F) 11/05/2019 10:41 AM CDT Respiratory Rate 18 05/18/2021 2:44 PM BREAST SPLITTER Oxygen Saturation 98% 05/18/2021 2:44 PM BREAST SPLITTER Inhaled Oxygen Concentration - - Weight 56.7 kg (125 lb) 02/14/2024 12:21 PM BREAST SPLITTER Height 157.5 cm (5' 2 ) 02/14/2024 12:21 PM BREAST SPLITTER Body Mass Index 22.86 02/14/2024 12:21 PM BREAST SPLITTER Plan of Treatment Not on file Insurance [employer] OPEN ACCESS [employer] OPEN ACCESS Care Teams Local Driver Relationship Specialty Start Date End Date Pamela Parekh MD PCP - General Family Medicine 09/04/23 Dc Brooks MD Obstetrics and Gynecology 05/14/19 Caity Sanabria NP Nurse Practitioner Nurse Practitioner 01/12/22
--- OUTSIDE RECORDS SUMMARY | 2024-06-29 12:15 | XMS_ITS | Clinical Summary ---
Author Organization [address] Address [address] [place] [address] Care Team Providers Care Middle Stitcher Name Role Phone Dc Brooks MD Unavailable [phone] Caity Sanabria NP Unavailable Pamela Parekh MD Primary Care Provider [phone] Allergies Active Allergy Reactions Criticality Noted Date [...] 05/18/2021 Assessment & Plan (05/18/2021 3:13 PM MARBLE INSTALLATION HELPER): I did request the chest x-ray from [facility] in [place]. I have also ordered another chest x-ray [...] 11/05/2019 Assessment & Plan (05/18/2021 3:11 PM MARBLE INSTALLATION HELPER): The patient was once again encouraged [...] complication Assessment & Plan (05/18/2021 3:11 PM MARBLE INSTALLATION HELPER): The patient was given sample of [...] Trelegy. Assessment & Plan (06/04/2019 10:51 AM MARBLE INSTALLATION HELPER): The patient did have significant improvement following bronchodilators. I will give her a trial of Symbicort 160/4.5 and albuterol MDI to see if this improves her symptoms. Shortness of breath 05/14/2019 Assessment & Plan (05/14/2019 8:43 AM MARBLE INSTALLATION HELPER): The patient quit smoking 2 months ago and smoked up to 1 pack of cigarettes a day for 27 years. With her dyspnea on exertion, I will check full PFTs and a 6 minute walk test. Other chest pain 05/14/2019 Assessment & Plan (06/04/2019 10:52 AM MARBLE INSTALLATION HELPER): I will hold off on a CT angiogram of the chest at this time since she felt like the chest pain improved after the nebulizer treatment. Assessment & Plan (05/14/2019 8:42 AM MARBLE INSTALLATION HELPER): The patient has had a previous [...] Type Department Care Team Description 04/16/2024 Telephone [facility] [address] [place] [address] Lashay Carney RN from Last [...] on file Legal Sex Female 9:08 PM MARBLE INSTALLATION HELPER Gender Identity Female 07/01/2021 12:01 PM CDT Sexual Orientation Straight 07/01/2021 12 :01 PM CDT Obstetrics History Last Filed Vital Signs Vital Sign Reading Time Taken Comments Blood Pressure 112/79 09/04/2023 3:17 PM CDT Pulse 71 09/04/2023 3:17 PM CDT Temperature 36.5 C (97.7 F) 11/05/2019 10:41 AM CDT Respiratory Rate 18 05/18/2021 2:44 PM MARBLE INSTALLATION HELPER Oxygen Saturation 98% 05/18/2021 2:44 PM MARBLE INSTALLATION HELPER Inhaled Oxygen Concentration - - Weight 56.7 kg (125 lb) 02/14/2024 12:21 PM MARBLE INSTALLATION HELPER Height 157.5 cm (5' 2 ) 02/14/2024 12:21 PM MARBLE INSTALLATION HELPER Body Mass Index 22.86 02/14/2024 12:21 PM MARBLE INSTALLATION HELPER Plan of Treatment Health Maintenance Due [...] patient's age to complete this topic Insurance [employer] OPEN ACCESS [employer] OPEN ACCESS [employer] OPEN ACCESS Care Teams Middle Stitcher Relationship Specialty Start Date End Date Pamela Parekh MD PCP - General Family Medicine 09/04/23 Dc Brooks MD Obstetrics and Gynecology 05/14/19 Caity Sanabria NP Nurse Practitioner Nurse Practitioner 01/12/22
--- OUTSIDE RECORDS SUMMARY | 2024-06-29 12:15 | XMS_ITS | CONTINUITY OF CARE DOCUMENT ---
Author Name salima, salima Address Unknown Organization [facility] Address [address] [place] [address] Phone [phone] Care Team Providers Care Claim Approver Name Role Phone Sisi BALTAZAR, Amor Mahoney Unavailable [phone] YOANDY BALTAZAR, GERMAIN Champagne Unavailable VINOD BALTAZAR, [...] In-person encounter Office Visit Amor Laird MD [facility] Cardiology examination - In-person encounter Office Visit Amor Laird MD [facility] - In-person encounter Office Visit Amor Laird MD [facility] - In-person encounter Office Visit Amor Laird MD [facility] Cardiology examination - In-person encounter Office Visit Benoit Cates MD [facility] - In-person encounter Office Visit Amor Laird MD [facility] - In-person encounter Office Visit Amor Laird MD [facility] Tobacco use - In-person encounter Office Visit Amor Laird MD [facility] CHEST PAIN - In-person encounter Office Visit Amor Laird MD [facility] Office CHEST PAINTobacco useAbnormal nuclear stress test - NL cardiac CT 09/2018 calcium score 0Palpitations - In-person encounter Office Visit Amor Laird MD [facility] Abnormal nuclear stress test - NL cardia c CT 09/2018 calcium score 0 - In-person encounter Office Visit Amor Laird MD [facility] HypercholesterolemiaCHEST PAIN-TYPE TO B E DETERMINEDSHORTNESS OF BREATHPALPITATIONSTobacco useBipolar disorderFamily History Premature CAD - In-person encounter Office Visit Laurence Hannon MD [facility] CHEST PAIN - In-person encounter Office Visit Laurence Hannon MD [facility] - In-person encounter Office Visit Laurence Hannon MD [facility] ANXIETY DISORDERDEPRESSIONHypercholesterolemia VITAL SIGNS Date Observation Value Provider Body Mass Index (Ratio) 23.26 kg/m2 Amor Laird MD oxygen saturation, oximetry 99 % Ariel Alvarenga blood pressure, cuff size regular Juan Luis wilson Alvarenga blood pressure, diastolic 87 mm[Hg] Juan Luis lemusn Alvarenga blood pressure, systolic 106 mm[Hg] Dali malin Alvarenga pulse rate 90 /min [facility]br[facility] hospital[facility] Alvarenga weight E&M 127.2 [lb_av] Juan Luisaron Alvarenga height E&M 62 [in_i] [facility] Body Mass Index (Ratio) [...] blood pressure, diastolic 84 mm[Hg] Mi gurwinder [place] blood pressure, systolic 122 mm[Hg] Manuel tonja [place] oxygen saturation, oximetry 98 % Cortney Wynn [...] [facility] erg height E&M 62 [in_i] [facility] erg Body Mass Index (Ratio) 25.42 kg/m2 Juan dalton Rafael blood pressure, diastolic 88 mm[Hg] Ch astity Vik blood pressure, systolic 103 mm[Hg] Randa stity Vik oxygen saturation, oximetry 98 % [facility] pulse rate 98 /min [facility] Vik respiratory rate E&M 18 /min Chastit y Vik weight E&M 139 [lb_av] [facility] height E&M 62 [in_i] [facility] Body Mass Index (Ratio) 24.69 kg/m2 Juan [facility] pulse rate 96 /min Gabino [facility] [email or web address] blood pressure, diastolic 78 mm[Hg] [facility] blood pressure, systolic 116 mm[Hg] [facility] weight E&M 135 [lb_av] Gabino [facility] [email or web address] height E&M 62 [in_i] [facility] erg Body Mass Index (Ratio) 25.05 [...] pressure, diastolic, left arm 78 mm [Hg] [facility] blood pressure, systolic, left arm 116 mm [Hg] [facility] blood pressure, diastolic, right arm 70 m m[Hg] [facility] blood pressure, systolic, right arm 116 m m[Hg] [facility] blood pressure, resting No [facility] Body Mass Index (Ratio) 24.69 kg/m2 [facility] blood pressure, cuff size regular Cy maria [...] /min Jory thomason weight E&M 127.4 [lb_av] Ojry Stueber Body Mass Index (Ratio) 23.54 kg/m2 Ash Medel blood pressure, diastolic, left arm 70 mm [Hg] Ara Medel blood pressure, systolic, left arm 126 mm [Hg] Ara Quanran blood pressure, diastolic, right arm 74 m m[Hg] Ara Medel blood pressure, systolic, right arm 122 m m[Hg] Patricemadieaugusto Medel blood pressure, diastolic 70 mm[Hg] Shirley blood pressure, systolic 126 mm[Hg] Patirce everett Medel pulse rate 87 /min Patricemadeiaugusto Medel oxygen saturation, oximetry 99 % Patricemadieaugusto [...] Interpretation Location LDL cholesterol, serum 130 mg/dL [facility] LDL cholesterol, serum 174 mg/dL [facility] alanine aminotransferase (SGPT), serum 17 1/L [employer] [...] <200 High platelet count 254 10*3/uL [facility] centerobd[facility] Montes hematocrit, blood 40.6 % [facility] international normalized ratio (INR) 1.0 [facility] platelet count 230 10*3/uL Patricebanner boswell medical centerobdulio Montes hematocrit, blood 39.9 % Kathia Montes LDL cholesterol, serum 140 mg/dL [facility] cholesterol, serum 206 mg/dL Kathia Montes alanine aminotransferase (SGPT), serum 24 1/L Kathia Montes aspartate aminotransferase (SGOT), serum 23 1/L Kathia Montes creatinine, serum 0.72 mg/dL Kathia Montes potassium, serum 3.7 mmol/L Kathia Monets sodium, serum 137 mmol/L Kathia Montes HISTORY [...] ORAL TABLET completed one daily - Gabino [facility] SYMBICORT 160-4.5 MCG/ACT INHALATION AEROSOL completed Two puffs twice a day - Gabino [facility] NORTRIPTYLINE HCL 25 MG ORAL CAPSULE completed One capsule daily - Gabino [facility] NIASPAN 1000 MG ORAL TABLET EXTENDED RELEASE completed 2 tablets daily - Gabino [facility] CRESTOR 40 MG ORAL TABLET completed ONE TAB. DAILY - Gab[facility] CYCLOBENZAPRINE HCL 10 MG ORAL TABLET completed One tablet at bedtime as needed - Gab[facility] PREMARIN TABLET completed Take 1 tab twice a week - Gab[facility] NAPROXEN 500 MG ORAL TABLET completed Take 1 tab twice daily as needed - Gabino [facility] EVENING PRIMROSE OIL 1000 MG ORAL CAPSULE completed Take 1 tab daily in evening time - [facility] VITAMIN E 400 UNIT ORAL TABLET completed Take 1 tab twice daily - [facility] VITAMIN D3 73581 UNIT ORAL TABLET completed TAke 1 tab [...] smoking history, tot al pack/day 1 Cortney [place] cigarette use yes Cortney Doty carmine smoking status Current every day smoker Denzel srivastava Wynn social history reviewed E&M revi ewed - no changes required [facility] social history E&M Smoking Histo ry: P karmen currently smokes every day. P karmen has been counseled to quit. [facility] smoking/tobacco cess ation, patient education and counseling yes [facility] physical exercise, frequency, days per week no [facility] caffeine use, averag e drinks per day 1+ [facility] smoking, year quit 2019 [facility] number of years as a smoker 10+ [facility] smoking history, tot al pack/day 1 [facility] cigarette use yes [facility] smoking status Current every day smoker A wes [facility] social history reviewed E&M revi ewed - no changes required [facility] physical exercise, frequency, days per week no Jazzy Vik caffeine use, averag e drinks per day 1+ Randastjony Vik smoking, year quit 2019 Chastity Vik number of years as a smoker 10+ Chastity Vik smoking history, tot al pack/day 1 Jazzy Chery cigarette use yes Jazzy hCery smoking status Former smoker Jazzy flores social history E&M Smoking Histo ry: P karmen is a former smoker. Gabino [facility] social history reviewed E&M revi ewed - no changes required [facility] smoking, year quit 2018 [facility] physical exercise, frequency, days per week no [facility] caffeine use, averag e drinks per day 1+ [facility] number of years as a smoker 10+ [facility] smoking history, tot al pack/day 1 [facility] cigarette use yes Gabino [facility] smoking status Former smoker Gabino [facility] alcohol use no Amor Laird MD [...] karmen has been counseled to quit. Gabino [facility] social history reviewed E&M revi ewed - [...] physical exercise, frequency, days per week no [facility] caffeine use, averag e drinks per day yes [facility] alcohol use, average drinks per day social basis only [facility] number of years as a smoker 10 years or m ore [facility] smoking status Smoker [facility] caffeine use, averag e drinks per day yes Leonel Maldonado RN alcohol use, average drinks per day social Leonel Maldonado RN smoking status Smoker Leonel Maldonado RN social history reviewed E&M reviewed Leonel aMldonado RN MENTAL STATUS Date Observation Value Provider [...] RN FAMILY HISTORY Family Member Condition Mother AK female <65 Maternal Grandmother Family History of C oronary Artery Disease: Maternal Grandfather Family History of C oronary Artery Disease: Uncle Family History of Co ronary Artery Disease: Aunt Family History of Co ronary Artery Disease: Mother Family History Coron narayan Heart Disease female < 65: INSURANCE PROVIDERS Payer name Policy type / Coverage type Ca red democrat ID [employer] Other [id number] ADVANCE DIRECTIVES Name Date DISCUSSED - NO DECISION MADE TREATMENT PLAN Date Name Performer [id number],B, No CP or SOB Her updated medication list for this problem includes: Metoprolol Tartrate 25 Mg Tablet (Metoprolol tartrate) ..... 1/2 tablet twice a day Juanpablo Sofie [id number],B,L DL 96 on Praluent. will continue current meds. Cannot tolerate statins. Her updated medication list for this problem includes: Praluent Pen 150 Mg/ml Pen Injector (Alirocumab) ..... Inject 1 pen under the skin every 2 weeks Juanpablo Carrizales [id number],S,I ntolerant of statins. F balwinder on Zetia. R emains very high (LDL 169). W ill send script for Repatha. Benoit Cates MD [id number],S, Benoit mesa MD [id number],S, Benoit mesa MD [id number],S,I ntolerant of statins. F balwinder on Zetia. R emains very high (LDL 169). Benoit Cates MD [id number],S,I nappropriate sinus tach. T ry low dose BB. Benoit Cates MD [id number],S, P t quit smoking in 03/2019. Amor Laird MD [id number],C, LDL is 180 on Zetia. She cannot [...] tablet once a day Amor Laird MD [id number],C,T he pt continues to have episodes of tachycardia with mild exertion. We discussed trying low dose Metoprolol she prefers to hold off at this time. L Amor aLird MD [id number],C,T he pt continues to have episodes of [...] nappropriate sinus tach. [facility]andy [facility]: H er updated medication list for [...] She had a recent CP admission and AK was ruled out. Stress test in the summer was normal. We discussed ILR and she will consider it further after GI workup is complete. She will contact us after her GI workup. Gabino [facility] TeleHealth:Continues to have palpitations. She had a recent CP admission and AK was ruled out. Stress test in the summer was normal. We discussed ILR and she will consider it further after GI workup is complete. Gabino [facility] Cardiology:She has b een on Zetia for 2 months and we will obtain lipid panel and see if she needs PCSK9 inhibitors. CHOL: 245 (06/12/2019) HDL: 57 (06/12/2019) LDL: 174 (06/12/2019) TRI (06/12/2019) Her updated medication list for this problem includes: Zetia 10 Mg Oral Tablet (Ezetimibe) ..... One daily Niaspan 1000 Mg Oral Tablet Extended Release (Niacin (antihyperlipidemic)) ..... 2 tablets daily [facility] Cardiology:Event mon itor showed no evidence of arrhythmia. [facility] Cardiology:Complains of more episodes of left arm and chest discomfort. Had an abnormal stress test last year but CT calcium score was 0. She is reluctant to have cardiac cath and prefers to schedule a stress test. [facility] Cardiology:Complains of more episodes of left arm and chest discomfort. Had an abnormal stress test last year but CT calcium score was 0. She is reluctant to have cardiac cath and prefers to schedule a stress test. [facility] TeleHealth:She was s tarted on Crestor in [...] 57 (06/12/2019) LDL: 174 (06/12/2019) TRI (06/12/2019) [facility] TeleHealth:Pt quit smoking in . [facility] TeleHealth:Had an ep isode of palpitations and had to go to the ER. Will obtain telesentry. [facility] Cardiology follow up :Advised ag clairen to quit. [facility] Cardiology follow up :CardioIQ lipid panel results are pending. [facility] Cardiology follow up :No recent chest pain. Myoview scan showed mild septal wall ischemia however CT coronary calcium score was 0. Will monitor her symptoms. [facility] Cardiology New Patie nt :Orders: C ardioIQ Advanced Lipid Panel with Inflammation ([facility]) (79852) [facility] Cardiology New Patie nt :Orders: E KG (CPT-45346) C omplete Echo (CPT-09139) S tress Exercise Cardiolite (CPT-07676) C T, Coronary Calcium Score (CPT-29389) [facility] Cardiology New Patie nt :Pt was advised to quit. Tried Chantix in the past. Gabino [facility] follow up Laurence Hannon MD follow up Laurence Hannon MD follow up: O rders: E KG (CPT-30652) Laurence Hannon MD follow up: T he following medications were removed from the medication list: Pravastatin Sodium 20 Mg Tabs (Pravastatin sodium) ..... One tab. daily BP today: 126/70 Prior BP: 116/81 (11/06/2011) C HOL: 206 (10/03/2011) LDL: 140 (10/03/2011) Laurence Hannon MD follow up: O rders: E KG (CPT-22537) BP today: 126/70 Prior BP: 116/81 (11/06/2011) [...]
--- OUTSIDE RECORDS SUMMARY | 2024-06-29 12:15 | XMS_ITS | Clinical Summary ---
Author Organization [facility] Address [address] [place] [address] Phone Care Team Providers Care Electorate Officer Name Role Phone Unavailable Primary Care Provider [...] cm (5' 2 ) 03/20/2023 2:43 PM GENERATION TECHNOLOGIST Body Mass Index 24.66 03/20/2023 2:43 PM GENERATION TECHNOLOGIST Plan of Treatment Health Maintenance Due Date [...] MAMMO BILAT DIAGNOSTIC Routine 04/10/2023 2:28 PM GENERATION TECHNOLOGIST from Last 3 Months or Most Recently Relevant to Health Maintenance Results * MAMMO BILAT DIAGNOSTIC (04/10/2023 2:28 PM GENERATION TECHNOLOGIST) Anatomical Region Laterality Modality Breast Bilateral Mammography David Baptiste MD MAMMO ORDERABLES Final Result from Last 3 Months or Most Recently Relevant to Health Maintenance Insurance [employer] OPEN ACCESS [employer] OPEN ACCESS
--- OUTSIDE RECORDS SUMMARY | 2024-06-29 12:15 | XMS_ITS | Clinical Summary ---
Author Organization [facility] [employer] Address [address] [place] [address] Care Team Providers Care Sales Professional Bilingual Name Role Phone Adrian Bryant MD Primary Care Provider [phone] Source Comments [facility] [employer],non-the rehabilitation institute Affiliates and Associated Physician Practices is amultiple site organization consisting of ambulatory clinics and hospital sitesin [place], [place], [place] and [place]. This disclosure is being madepursuant to the Care Everywhere program and may not contain all information available regarding this patient. Last updated 17.[facility] [employer] Allergies Active Allergy Reactions Criticality Noted Date [...] age to complete this topic Care Teams Sales Professional Bilingual Relationship Specialty Start Date End Date Adrian Bryant MD [address] [place] [address] PCP - General 11/25/20
--- NOTE | 2024-06-29 12:52 | ED_ITS ---
HPI - Headache General Chief Complaint: Headache Stated Complaint: sinus pressure Time Seen by Provider: 06/29/24 12:07 History of Present Illness HPI Narrative: 43-year-old female with history of bipolar depression, fibromyalgia, anxiety and depression, IBS. She presents with multiple complaints but her most chief complaint is that she is having persistent sinus pain and pressure in her frontal sinuses bilaterally. She has been using nasal rinses, antihistamines, Neti pot, humidified air frequently. She states she has remotely see ENT in the past for deviated septum but had no new surgeries or any injuries. Was here recently with sinus pressure and had a large workup including CT of the head and laboratory studies which were unremarkable. She is requesting a sinus CT and referral to an elevator runner. Related Data Home Medications ?Medication ?Instructions ?Recorded ?Confirmed ?Last Taken ?Type albuterol sulfate 90 mcg/actuation 2 puff inhalation PRN PRN 08/02/23 04/04/24 Unknown History aerosol inhaler Shortness Of Breath Or Wheezing pantoprazole 40 mg granules 40 mg PO DAILY 04/04/24 04/04/24 Unknown History delayed-release for susp in packet (Protonix) Allergies Allergy/AdvReac Type Severity Reaction Status Date / Time hydromorphone (From Dilaudid) Allergy Mild Palpitation Verified 06/29/24 10:59 s pravastatin Allergy Mild Palpitation Verified 06/29/24 10:59 s codeine AdvReac Mild Nausea Verified 06/29/24 10:59 Review of Systems Review of Systems: As reviewed above in HPI PMFSH Past Medical History Medical History Fibromyalgia Anxiety SELINA (obstructive sleep apnea) IBS (irritable bowel syndrome) GERD (gastroesophageal reflux disease) Asthma Surgical History Surgical History History of left oophorectomy History of partial hysterectomy Family History Family History Other Depression Anxiety Heart disease Grandparent Depression Anxiety Heart disease Grandparent Cerebrovascular accident Social History Social History Smoking packs per day: 1 Smoking cigarettes per day: 20.0 Years smoked: 22 Smoking pack-years: 22.00 Smoking status: Current every day smoker Tobacco type: cigarettes and e-cigarettes/vaping Second hand tobacco smoke exposure: No Alcohol intake: never Substance use: never Substance use type: does not use Do You Feel Safe in your Home?: Yes Lack of Transportation: No Lack of Food: Never True Current Housing: I Have Housing Concerned About Future Housing: No Difficulty Paying Gas/Electric Bills: No Difficulty Paying for Meds: No Currently Unemployed: No Education: High School Diploma/GED Difficulty w/ Childcare or Family Care: No Living arrangements: with family Spiritual care concerns: No Exam Narrative: GENERAL: [Well-appearing, well-nourished, and in no acute distress.] HEAD: [Normocephalic, atraumatic.] EYES: [PERRLA and EOMI.] ENT: left nares does appear to have some mild deviation of the septum compared to the right but no perforation, no epistaxis, no turbinate inflammation or dry membranes. Normal oral examination NECK: Supple. CHEST: [Clear to auscultation. No respiratory distress.] HEART: [Regular rate and rhythm]. No murmur heard. [Normal peripheral pulses.] ABDOMEN: [Soft, nondistended], [nontender], [No rigidity or guarding] EXTREMITIES: Normal range of motion. [No edema.] SKIN: Warm, dry, no rash. NEURO: [No focal deficits]. Alert and oriented [x3.] PSYCH: [Normal mood and affect.] Course Vital Signs Vital signs: Vital Signs Temperature 36.6 C 06/29/24 11:33 Pulse Rate 79 06/29/24 11:33 Respiratory Rate 20 06/29/24 11:33 Blood Pressure 99/70 L 06/29/24 11:33 Pulse Oximetry 99 06/29/24 11:33 Oxygen Delivery Room Air 06/29/24 11:33 Temperature 36.6 C 06/29/24 11:33 Pulse Rate 79 06/29/24 11:33 Respiratory Rate 20 06/29/24 11:33 Blood Pressure 99/70 L 06/29/24 11:33 Pulse Oximetry 99 06/29/24 11:33 Oxygen Delivery Room Air 06/29/24 11:33 MDM - Headache MDM Narrative Medical decision making narrative: 43-year-old female with history of fibromyalgia, anxiety, depression bipolar disorder, IBS. She presents with persistent sinus pressure and pain. Had a remote history of a deviated septum without surgical repair. She has been using conservative treatments with nasal rinses, humidified air and nasal Neti pot. she is otherwise very well-appearing not any acute distress, has normal vital signs. Was here recently with a large workup that was unremarkable including CT images and laboratory assessments. She has not seen an elevator runner or an applied research director. She is requesting a CT of the sinuses and referral to an elevator runner. She otherwise appears well and has no signs or symptoms of active infection, no symptoms consistent with sinusitis. otherwise well-appearing, not ill or toxic. CT without contrast of the maxillary facial sinus bones were obtained. sinus CT shows no acute findings. No significant inflammatory disease or any acute fracture. Patient will be provided in allergies to refer to as well as an applied research director. She is safe for discharge home at this time. Given Claritin as needed for decongestion as another therapy to try. Medical Records Attestation: I reviewed the patient's medical records. Imaging Data Attestation: I personally reviewed and interpreted this imaging study as follows: My impression: Impressions Sinuses CT 06/29/24 13:54 IMPRESSION: No acute findings within the facial sinuses. No significant inflammatory disease or acute fracture is present. Discharge Plan Discharge Clinical Impression: Frontal sinus pain Patient Disposition: Home, Self-Care Condition: Stable Instructions: Antibiotic Form Additional Instructions: your CT scan shows no inflammatory or infectious process in your sinuses, no acute concerns based on your recent workups. We will send you home with Claritin. You will have to see an elevator runner and applied research director as the next step for further delineation. Patient Language: Tamazight Prescriptions: New loratadine [Claritin] 10 mg tablet 10 mg PO DAILY PRN (Reason: allergic symptoms) Qty: 30 0RF No Action pantoprazole [Protonix] [address] for susp in packet 40 mg PO DAILY fluticasone propionate [Flonase Allergy Relief] 50 mcg/actuation spray,suspension 1 spray intranasal BID Qty: 16 0RF Rx Instructions: administer into each nostril prednisone 20 mg tablet 20 mg PO BID Qty: 10 0RF fluconazole [Diflucan] 100 mg tablet 100 mg PO DAILY Qty: 1 0RF albuterol sulfate 90 mcg/actuation HFA aerosol inhaler 2 puff INHALATION PRN PRN (Reason: Shortness Of Breath Or Wheezing) fluconazole 150 mg tablet 150 mg PO DAILY Qty: 1 0RF Rx Instructions: Take after you complete your antibiotics Follow-up/Referrals: Pamela Parekh MD [Primary Care Provider] - Kalia Jeffries MD [Physician] - 1 Week Time of Disposition: 14:27
== END 2024-06-29 14:34 | disposition home or self-care (01) ==
PROVIDERS: Emergency Provider Student in an Organized Health Care Education/Training Program; PCP Family Medicine
DX: J34.89 Other specified disorders of nose and nasal sinuses (principal); J45.909 Unspecified asthma, uncomplicated; M79.7 Fibromyalgia; K58.9 Irritable bowel syndrome, unspecified; K21.9 Gastro-esophageal reflux disease without esophagitis; G47.33 Obstructive sleep apnea (adult) (pediatric); F17.210 Nicotine dependence, cigarettes, uncomplicated; F17.290 Nicotine dependence, other tobacco product, uncomplicated; Z90.711 Acquired absence of uterus with remaining cervical stump; Z90.721 Acquired absence of ovaries, unilateral
CPT/HCPCS: 70486; 99284

== ENCOUNTER 2025-02-03 13:03 | Outpatient (CLI) | payer OTHER, SELFPAY ==
[2025-02-03 13:25] LABS: Hematocrit 43.8 % (37.0-47.0); Hemoglobin 14.9 g/dL (12.0-15.0); Immature Granulocyte Percent A 0.3 % (0-0.5); Lymphocytes Absolute Auto 2.55 K/mm3 (0.9-3.2); Mean Corpuscular HGB Conc 34.0 g/dl (32-36); Mean Corpuscular Hemoglobin 30.2 pg (26-34); Mean Corpuscular Volume 88.7 fl (80-100); Nucleated Red Blood Cells Absolute Auto 0.000 K/mm3 (0.0-0.012); Nucleated Red Blood Cells Perc 0.0 % (0.0-0.2); Platelet Count Result 298 k/mm3 (150-375); Red Blood Count 4.94 M/mm3 (4.2-5.4); White Blood Count 9.6 K/mm3 (4.5-10.0)
--- OUTSIDE RECORDS SUMMARY | 2025-02-03 14:43 | XMS_ITS | Encounter Summary ---
Author Organization [facility] Address [address] [place] [address] Care Team Providers Care Leaf Sorter Name Role Phone Unavailable Primary Care Provider Unavailabl e Reason for Visit * Reason Onset Date Comments labs for appt 02/02/2025 Encounter Details Date Type Department Care Team (Late Contact Info) Description 02/02/2025 Telephone [facility] Oncology and Hematology - [place] [address] [facility] [address] [place] [address] David Baptiste MD [address] [place] [address] labs for appt Social History Tobacco Use Types Packs/Day Years [...] on file documented as of this encounter Miscellaneous Notes * Telephone Encounter - Leona Lainez - 02/02/2025 9:47 AM CST Called patient about labs for appointment. Unable to complete the call at this time. She would needto have the labs done today for the appointment tomorrow. 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
--- OUTSIDE RECORDS SUMMARY | 2025-02-03 14:43 | XMS_ITS | Clinical Summary ---
Author Organization [facility] Address [address] [place] [address] Care Team Providers Care Sales Assistant Entertainment And Media Name Role Phone Adrian Bryant MD Primary Care Provider Unavail able Medications traMADol (ULTRAM) 50 MG tablet TAKE [...] P M CDT Height 157.5 cm (5' 2) 01/11/2022 1:26 PM CDT Body Mass Index 23.52 01/11/2022 1:26 PM CDT Plan of Treatment Health Maintenance Due Date Last Done Comments Cervical Cancer Screening Pa p Smear (Age 30 to 64) Every 3 Years 1978 Colorectal Cancer Screening Colonoscopy (10 Years) 1978 Annual Physical 1981 Hepatitis C 1996 Hepatitis B Vaccines (1 of 3 - 19+ 3-dose series) 1997 Pneumococcal Vaccine: Pediat rics (0 to 5 Years) and At-Risk Patients (6 to 49 Years) (1 of 2 - PCV) 1997 Cervical Cancer Screening Pa p with HPV Testing (Age 30 to 64) Every 5 Years 2008 Cervical Cancer Screening with HPV 2008 Mammogram Screening 2018 COVID-19 Vaccine ( - 2024-2 6 season) 2024 Influenza Adult (#1) 2024 DTaP, Tdap and Td Vaccines ( 2 - Td or Tdap) 07/24/2026 07/24/2016 Hepatitis A Vaccines Aged Out No long er eligible based on patient's age to complete this topic Meningococcal B Vaccine Aged Out No l onger eligible based on patient's age to complete this topic Meningococcal Vaccine Aged Out No fili nuris eligible based on patient's age to complete this topic RSV Immunizations Under 20 Months Aged Out No longer eligible based on patient's age to complete this topic Insurance [employer] OPEN ACCESS [facility] Care Teams Sales Assistant Entertainment And Media Relationship Specialty Start Date End Date Adrian Bryant MD PCP - General INTERNAL MEDICINE 01/11/22
--- OUTSIDE RECORDS SUMMARY | 2025-02-03 14:43 | XMS_ITS | Clinical Summary ---
Author Organization [address] Address [address] [place] [address] Care Team Providers Care Grit Blaster Name Role Phone Dc Brooks MD Unavailable [phone] Caity Sanabria NP Unavailable [phone] Pamela Parekh MD Primary Care Provider [phone] Allergies Active Allergy Reactions Criticality Noted Date [...] 05/18/2021 Assessment & Plan (05/18/2021 3:13 PM SAP DIRECTOR): I did request the chest x-ray from [facility] in [place]. I have also ordered another chest x-ray [...] 11/05/2019 Assessment & Plan (05/18/2021 3:11 PM SAP DIRECTOR): The patient was once again encouraged to [...] complication Assessment & Plan (05/18/2021 3:11 PM SAP DIRECTOR): The patient was given sample of Breztri [...] Trelegy. Assessment & Plan (06/04/2019 10:51 AM SAP DIRECTOR): The patient did have significant improvement following bronchodilators. I will give her a trial of Symbicort 160/4.5 and albuterol MDI to see if this improves her symptoms. Shortness of breath 05/14/2019 Assessment & Plan (05/14/2019 8:43 AM SAP DIRECTOR): The patient quit smoking 2 months ago and smoked up to 1 pack of cigarettes a day for 27 years. With her dyspnea on exertion, I will check full PFTs and a 6 minute walk test. Other chest pain 05/14/2019 Assessment & Plan (06/04/2019 10:52 AM SAP DIRECTOR): I will hold off on a CT angiogram of the chest at this time since she felt like the chest pain improved after the nebulizer treatment. Assessment & Plan (05/14/2019 8:42 AM SAP DIRECTOR): The patient has had a previous cardiac [...] more drinks on one occasion? Never 07/11/2022 Personal Safety Answer Date Recorded Have you ever been in or are you currently in a harmful physical or emotional relationship or is someone making you feel afraid or unsafe? Denies 07/14/2024 Comments Unknown Sex and Gender Information Value Date Recorded Sex Assigned at Not on file Legal Sex Female 9:08 PM SAP DIRECTOR Gender Identity Female 07/01/2021 12:01 PM CDT Sexual Orientation Straight 07/01/2021 12 :01 PM CDT Last Filed Vital Signs Vital Sign Reading Time Taken Comments Blood Pressure 111/62 07/14/2024 4:05 PM CDT Pulse 78 07/14/2024 4:05 PM CDT Temperature 36.8 C (98.2 F) 07/14/2024 1:24 PM CDT Respiratory Rate 18 07/14/2024 4:05 PM CDT Oxygen Saturation 98% 07/14/2024 4:05 PM CDT Inhaled Oxygen Concentration - - Weight 51.7 kg (114 lb) 07/14/2024 1:04 PM CDT Height 157.5 cm (5' 2) 07/14/2024 1:04 PM CDT Body Mass Index 20.85 07/14/2024 1:04 PM CDT Plan of Treatment Health Maintenance Due Date Last Done Comments Colon Cancer Screening-Colonoscopy 1978 Depression Screening 1978 Hepatitis C Screening 1978 Hepatitis B Screening 1996 Regular Well Visit/Exam 18-64 1996 Pneumococcal vaccine <65 (1 of 2 - PCV) 1997 Zoster Vaccine (1 of 2) 1997 Breast Cancer Screening-Mammogram 04/11/2024 04/11/2023, 12/21/2021, 07/30/2020 Influenza Vaccine (#1) 2024 DTaP/Tdap/Td Vaccine (2 - Td or Tdap) 07/24/2026 07/24/2016 HPV Vaccines Aged Out No longer eligi ble based on patient's age to complete this topic Insurance [employer] OPEN ACCESS [employer] OPEN ACCESS Care Teams Grit Blaster Relationship Specialty Start Date End Date Pamela Parekh MD PCP - General Family Medicine 09/04/23 Dc Brooks MD Obstetrics and Gynecology 05/14/19 Caity Sanabria NP Nurse Practitioner Nurse Practitioner 01/12/22
--- OUTSIDE RECORDS SUMMARY | 2025-02-03 14:43 | XMS_ITS | Clinical Summary ---
Author Organization [facility] Address [address] [place] [address] Care Team Providers Care Stone Grader Name Role Phone Adrian Bryant MD Primary Care Provider Source Comments [facility],non-sac-osage hospital Affiliates and Associated Physician Practices is amultiple site organization consisting of ambulatory clinics and hospital sitesin [place], [place], [place] and [place]. This disclosure is being madepursuant to the Care Everywhere program and may not contain all information available regarding this patient. Last updated 17.[facility] Allergies Active Allergy Reactions Criticality Noted Date Comments Codeine Vomiting High 09/17/2012 Hydromorphone Dizziness,Unknown High 09/17/2012 Pravastatin GI Discomfort,Myalgias Medium 09/17/2012 Rosuvastatin Myalgias 01/10/2019 Medications * Be aware that medications may not be up to date on this document. Alwaysverify current medications with the patient. esomeprazole (NEXIUM) 40 MG capsule 12/09/2020 Active Cholestyramine 4 GM/DOSE DISSOLVE 4 GRAMS IN 2 TO 6 OZ OF WATER OR NON-CARBONATE D BEVERAGE AND TAKE BY MOUTH TWICE DAILY [...] drink = 0.6 oz pur e alcohol) Comments Unknown Sex and Gender Information Value Date Recorded Sex Assigned at Not on file Legal Sex Female 5:48 AM ORDER ENTRY Gender Identity Not on file Sexual Orientation [...] SCREENING 1978 LIPID TESTING 1978 MAMMOGRAM 1978 HIV SCREENING 1993 HEPATITIS C SCREENING 11/04/1996 DTAP/TDAP/TD VACCINES (1 - Tdap) 1997 HEPATITIS B VACCINE (1 of 3 - 19+ 3-dose series) 1997 PNEUMOCOCCAL VACCINE (1 of 2 - PCV) 1997 PAP SMEAR 11/10/1999 DEPRESSION SCREENING 04/02/2024 COVID-19 VACCINE (1 - 2023-2 5 season) 2024 INFLUENZA VACCINE (#1) 2024 ZOSTER VACCINE (1 of 2) 2028 HIB [...] patient's age to complete this topic Insurance [employer] ([employer]) * Guarantor: SAMANTHA RUCKER Account Type Relation to Patient Date of Phone Billing Address Personal/Family [address] [place], [place] [id number] [employer] SELF PAY NO INSURANCE Member Subscriber Plan / Payer (Ef fective for All Dates) Name:Samantha Rucker Starr Member ID:Not on file Relation to Subscriber:Not on file Name:SAMANTHA RUCKER Subscriber ID:Not on file Address: [address] [place] [address] Payer ID:Not on file Group ID:Not on file Type:Self Pay Address: [place], [place] * Guarantor: SAMANTHA RUCKER Account Type Relation to Patient Date of Phone Billing Address Personal/Family [address] [place], [place] [id number] [employer] SELF PAY NO INSURANCE Member Subscriber Plan / Payer (Ef fective for All Dates) Name:Samantha Rucker Starr Member ID:Not on file Relation to Subscriber:Not on file Name:ALKASAMANTHA Subscriber ID:Not on file Address: [address] [place], [place] [id number] Payer ID:Not on file Group ID:Not on file Type:Self Pay Address: [place], [place] * Guarantor: SAMANTHA RUCKER Account Type Relation to Patient Date of Phone Billing Address Personal/Family [address] [place] [address] [employer] SELF PAY NO INSURANCE Member Subscriber Plan / Payer (Ef fective for All Dates) Name:Samantha Rucker Member ID:Not on file Relation to Subscriber:Not on file Name:SAMANTHA RUCKER Subscriber ID:Not on file Address: [address] [place] [id number] Payer ID:Not on file Group ID:Not on file Type:Self Pay Address: [place], [place] Care Teams Stone Grader Relationship Specialty Start Date End Date Adrian Bryant MD [address] [place] [phone] PCP - General 11/25/20
--- OUTSIDE RECORDS SUMMARY | 2025-02-03 14:43 | XMS_ITS | Clinical Summary ---
Author Organization [facility] Address [address] [place] [address] Phone Care Team Providers Care Sky Cap Name Role Phone Unavailable Primary Care Provider [...] Encounters Date Type Department Care Team Description 02/02/2025 Telephone [facility] Oncology and Hematology - [place] [address] [place] [address] David Baptiste MD labs for appt from Last 3 Months Family History Medical [...] 2:08 PM CDT Height 157.5 cm (5' 2) 03/20/2023 2:43 PM ORDER RUNNER Body Mass Index 24.66 03/20/2023 2:43 PM ORDER RUNNER Plan of Treatment Upcoming Encounters Date Type Department Care Team (Late st Contact Info) Description 02/04/2025 2:30 PM ORDER RUNNER Office Visit [facility] Oncology and Hematology [facility] [address] [facility] [address] [address] David Baptiste MD [address] [facility] [address] [place] [address] Health Maintenance Due Date Last Done Comments HEPATITIS B VACCINES (1 of 3 - 19+ 3-dose series) 1997 COLORECTAL SCREENING 11/10/2023 Colorectal Cancer Screening 11/10/2023 FIT-DNA Q 3 years 11/10/2023 FIT/FOBT Q 1 year 11/10/2023 Flex Sig/CT Colonography Q 5 years 11/10/2023 Preventative Visit- Commercial 04/02/2024 12/02/2021, 03/01/2017, 11/17/2015 BREAST CANCER SCREENING 04/10/2024 04/10/19, 10/26/2020 INFLUENZA VACCINE (#1) 2024 DTAP/TDAP/TD VACCINES (2 - T d or Tdap) 07/24/2026 07/24/2016 HPV VACCINES Aged Out No longer eligi ble based on patient's age to complete this topic Procedures Procedure Name Priority Date/Time Associated Diagnosis Comments MAMMO BILAT DIAGNOSTIC Routine 04/10/2023 2:28 PM ORDER RUNNER from Last 3 Months or Most Recently Relevant to Health Maintenance Results * MAMMO BILAT DIAGNOSTIC (04/10/2023 2:28 PM ORDER RUNNER) Anatomical Region Laterality Modality Breast Bilateral Mammography David Baptiste MD MAMMO ORDERABLES Final Result from Last 3 Months or Most Recently Relevant to Health Maintenance Insurance [employer] OPEN ACCESS Member Subscriber Plan / Payer (Ef fective 2020-Present) Name:Tootie Gleason Relation to Subscriber:Self Name:Tootie Gleason Payer ID:Not on file Group ID:[id number] Type:HMO Address: [place] [phone] [employer] [place] [facility] OPEN ACCESS
[2025-02-03 18:00] LABS: Iron 73 ug/dL (37-170)
[2025-02-03 18:09] LABS: Percent Iron Saturation 22 % (20-50)
[2025-02-03 18:45] LABS: Ferritin 15.40 ng/mL (6.24-137)
== END 2025-02-03 13:04 | disposition home or self-care (01) ==
LOC: ANHLAB 13:04
PROVIDERS: PCP Student in an Organized Health Care Education/Training Program; Visit Provider Internal Medicine Hematology & Oncology
DX: D64.9 Anemia, unspecified (principal)
CPT/HCPCS: 36415; 82728; 83540; 83550; 85025

== ENCOUNTER 2025-02-04 13:14 | Outpatient (CLI) | payer OTHER, SELFPAY ==
--- NOTE | ~2025-02-04 | US_ITS ---
Clinical history:Thyroid nodule EXAM:Ultrasound thyroid TECHNIQUE:Multiple static grayscale images and color Doppler images were obtained of the thyroid gland. Comparisons:None available FINDINGS: Right thyroid lobe measures 4.5 x 1.0 1.4 cm and is homogeneous. Left thyroid lobe measures 0.9 x 3.8 x 1.0 cm and is homogeneous. Isthmus measures 0.2 cm and is homogeneous. There is a 0.8 x 0.5 x 0.3 cm cystic and solid hypoechoic nodule in the right thyroid lobe. TR 3. IMPRESSION: 1.There is a 0.8 x 0.5 x 0.3 cm cystic and solid hypoechoic nodule in the right thyroid lobe. TR 3. Reviewed, dictated and finalized at location Q. RAM DEVELOPMENT SPECIALIST
== END 2025-02-04 13:15 | disposition home or self-care (01) ==
LOC: MICIMG 13:15
PROVIDERS: PCP Student in an Organized Health Care Education/Training Program; Visit Provider Student in an Organized Health Care Education/Training Program
DX: E04.1 Nontoxic single thyroid nodule (principal)
CPT/HCPCS: 76536

== ENCOUNTER 2025-02-04 15:02 | Outpatient (CLI) | payer OTHER, SELFPAY ==
--- OUTSIDE RECORDS SUMMARY | 2025-02-04 14:30 | XMS_ITS | Encounter Summary ---
Author Organization [facility] JULIEN Alberto [facility] Address [address] [place] [address] Care Team Providers Care Public Services Librarian Name Role Phone Unavailable Primary Care Provider Unavailabl e Reason for Visit * Reason Comments Follow Up Encounter Details Date Type Department Care Team (Late st Contact Info) Description 02/04/2025 2:30 PM FREELANCE ART DIRECTOR Office Visit [facility] Oncology and Hematology - [place] [address] [place] [address] David Baptiste MD [address] [place] [address] Chronic anemia (Primary Dx) Social History Tobacco Use Types Packs/Day Years [...] on file documented as of this encounter Last Filed Vital Signs Vital Sign Reading Time Taken Comments Blood Pressure 117/85 02/04/2025 2:26 PM FREELANCE ART DIRECTOR Pulse 93 02/04/2025 2:26 PM FREELANCE ART DIRECTOR Temperature 37 C (98.6 F) 02/04/2025 2:26 PM FREELANCE ART DIRECTOR Respiratory Rate 16 02/04/2025 2:26 PM FREELANCE ART DIRECTOR Oxygen Saturation 96% 02/04/2025 2:26 PM FREELANCE ART DIRECTOR Inhaled Oxygen Concentration - - Weight 56.1 kg (123 lb 9.6 oz) 02/04/2025 2:26 P M FREELANCE ART DIRECTOR Height - - Body Mass Index 22.61 03/20/2023 2:43 PM FREELANCE ART DIRECTOR documented in this encounter Progress Notes * David Baptiste MD - 02/04/2025 4:07 PM CST HEMATOLOGY / ONCOLOGY PROGRESS NOTE Patient Identification: Name: Tootie Gleason Age: 44 y.o. Sex: female : 1980 DIAGNOSIS Low ferritin CURRENT TREATMENT Expectant TREATMENT HISTORY SUBJECTIVE Patient came to the office for follow-up visit. She has been complaining of extreme tiredness and fatigue. Denies any bleeding including melena or hematochezia. Denies any chest pain shortness of breath. No other new complaints. Review of system Constitutional: Patient did not mention fevers, sweats, complain of tiredness and fatigue HEENT: Patient did not mention sinus congestion, hearing or vision problems Respiratory: Patient did not mention cough, dyspnea, wheeze Cardiovascular: Patient did not mention chest pain, exertional chest pressure/discomfort, nausea, syncope, shortness of breath GI: Patient did not mention constipation, diarrhea, dsyphagia, reflux symptoms, vomiting, melena : Patient did not mention dysuria, frequency, incontinence, urgency Integumentary system: no lymphadenopathy, sweats, flushing Musculoskeletal: Patient not mention: myalgia, arthralgia Neurological: Patient did not mention blurry or disturbed vision, numbness/weakness, dizziness Skin: No lumps, bumps or rashes. Objective: Vital signs in last 24 hours: As per nursing note Exam: General appearance: alert, cooperative, no distress, appears stated age Head: normocephalic, without obvious abnormality, atraumatic Eyes: conjunctivae/corneas clear, EOM's intact Ears: normal external ear canals AU Nose: Nares normal. Septum midline. Mucosa normal. No drainage or sinus tenderness Throat: Lips, mucosa, and tongue normal. Teeth and gums normal Neck: supple, symmetrical, trachea midline. Lungs: clear to auscultation bilaterally Heart: regular rate and rhythm, S1, S2 normal, no murmur, click, rub or gallop Abdomen: soft, non-tender. Bowel sounds normal. No masses, No organomegaly Extremities: extremities normal, atraumatic, no cyanosis or edema Skin: Skin color, texture, turgor normal. No rashes or lesions Lymph nodes: No lymphadenopathy Neuro: No obvious focal deficit PATH LABS Labs from February 03 showed hemoglobin 14.9 iron 73 saturation 22 ferritin 15.4 @IMAGEIMP@ Assessment: Plan: There are no active problems to display for this patient. Low ferritin. Patient has been complaining of significant tiredness and fatigue and symptoms of restless leg syndrome with cramping. She has some shortness of breath. Labs showed normal hemoglobin and ferritin on the low side of the normal. I have discussed the other differential diagnosis for her symptoms. She informed me that her TSH was checked and normal. I will check vitamin B12 level soluble transferrin receptor, methylmalonic acid level and vitamin D level today. Will discuss these with her in 1 week. She is intolerant to oral iron in tablet form. Will order liquid iron 300 mg per 5 mL. I will repeat labs again in 3 months but we will discuss labs ordered today in 1 week. ? TOBACCO COUNSELING She is not a tobacco/nicotine user. 02/04/2025 David Baptiste MD LANCE ART DIRECTOR documented in this encounter Plan of Treatment Upcoming Encounters Date Type Department Care Team (Late st Contact Info) Description 02/10/2025 4:30 PM FREELANCE ART DIRECTOR Telephone Check Up [facility] Oncology and Hematology - [place] [address] [place] [address] Jennifer Melendez MD [address] [place] [address] Scheduled Orders Name Type Priority Associated Diagnoses Orde r Schedule METHYLMALONIC ACID Lab Routine Chronic anemia Expected: 02/04/2025, Expires: 02/04/2026 VITAMIN B12 LEVEL Lab Routine Chronic anemia Expected: 02/04/2025, Expires: 02/04/2026 VITAMIN D 25 HYDROXY Lab Routine Chronic anemia Ordered: 02/04/2025 TRANSFERRIN RECEPTOR TFR SOLUBLE Lab Routine Chronic anemia Expected: 02/04/2025, Expires: 02/04/2026 documented as of this encounter Visit Diagnoses Diagnosis Chronic anemia- Primary Anemia, unspecified documented in this encounter
[2025-02-04 18:03] LABS: Vitamin B12 751.0 pg/mL (239-931)
--- OUTSIDE RECORDS SUMMARY | 2025-02-05 14:43 | XMS_ITS | Clinical Summary ---
Author Organization [facility] Address [address] [place] [address] Phone Care Team Providers Care Manager Drilling Name Role Phone Unavailable Primary Care Provider Unavailabl e Allergies Active Allergy Reactions Criticality Noted Date Comments Codeine Nausea and Vomiting High 09/17/2012 Hydromorphone Palpitations Low 03/20/2023 Pravastatin Palpitations,Muscle Pain Medium 09/17/2012 Rosuvastatin Muscle Pain,Palpitations Medium 9 Medications estradioL 0.05 mg/24 hr patch Apply 1 Patch to skin as directed see administration instructions. 5 Active famotidine (PEPCID) 40 mg tablet Take 1 Tablet by mouth 2 times daily. 3 Active ferrous sulfate (FEOSOL) 300 mg (60 mg iron)/5 mL solution Take 5 mL (300 mg) by mouth daily. 150 mL 2 5 Active Active Problems No known active problems Encounters Date Type Department Care Team Description 02/04/2025 2:30 PM PAINTING CONTRACTOR Office Visit [facility] Oncology and Hematology [facility] [address] [place] [phone] David Baptiste MD Chronic anemia (Primary Dx) 02/04/2025 External Device Data STL ABSTRACTION Provider, Abstract 02/03/2025 External Device Data STL ABSTRACTION Provider, Abstract 02/03/2025 External Device Data STL ABSTRACTION Provider, Abstract 02/02/2025 Telephone [facility] Oncology [facility] Hemat[facility] [address] [place] [id number] David Baptiste MD labs for appt from [...] Comments Blood Pressure 117/85 02/04/2025 2:26 PM PAINTING CONTRACTOR Pulse 93 02/04/2025 2:26 PM PAINTING CONTRACTOR Temperature 37 C (98.6 F) 02/04/2025 2:26 PM PAINTING CONTRACTOR Respiratory Rate 16 02/04/2025 2:26 PM PAINTING CONTRACTOR Oxygen Saturation 96% 02/04/2025 2:26 PM PAINTING CONTRACTOR Inhaled Oxygen Concentration - - Weight 56.1 kg (123 lb 9.6 oz) 02/04/2025 2:26 P M PAINTING CONTRACTOR Height 157.5 cm (5' 2) 03/20/2023 2:43 PM PAINTING CONTRACTOR Body Mass Index 22.61 03/20/2023 2:43 PM PAINTING CONTRACTOR Plan of Treatment Upcoming Encounters Date Type Department Care Team (Late st Contact Info) Description 02/10/2025 4:30 PM PAINTING CONTRACTOR Telephone Check Up [facility] Oncology and Hematology - [place] [address] [place] [address] Jennifer Melendez MD [address] [place] [address] Health Maintenance Due Date Last [...] MAMMO BILAT DIAGNOSTIC Routine 04/10/2023 2:28 PM PAINTING CONTRACTOR from Last 3 Months or Most Recently Relevant to Health Maintenance Results * MAMMO BILAT DIAGNOSTIC (04/10/2023 2:28 PM PAINTING CONTRACTOR) Anatomical Region Laterality Modality Breast Bilateral Mammography David Baptiste MD MAMMO ORDERABLES Final Result from Last 3 Months or Most Recently Relevant to Health Maintenance Insurance [employer] OPEN ACC[employer] ACCESS
--- OUTSIDE RECORDS SUMMARY | 2025-02-05 14:44 | XMS_ITS | Data Portability ---
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 Lab None recorded. Referral physical therapist referral - please contact patient to schedule 2024 025 [facility], [address], [place], [address], 5 10:40:31 physical therapist referral - Please contact patient to schedule 2023 024 [facility]ational [facility], [address] [place], [address], 4 14:05:22 Procedures injection/ aspiration joint/burs a (PROC) 2023 024 [email or web address] In-Office Order, Internal Use Only DO Not Attach Compendium DO Not Attach Compendium, Do Not Delete/merge, 4 15:00:53 injection/ aspiration joint/burs a (PROC) 2023 024 [email or web address] In-Office Order, Internal Use Only DO Not Attach Compendium DO Not Attach Compendium, Do Not Delete/merge, 4 14:54:42 injection/ aspiration joint/burs a (PROC) - in office procedure, administer ed by provider 2023 024 [email or web address] In-Office Order, Internal Use Only DO Not Attach Compendium DO Not Attach Compendium, Do Not Delete/merge, 4 14:11:42 injection/ aspiration joint/burs a (PROC) 2023 024 [email or web address] In-Office Order, Internal Use Only DO Not Attach Compendium DO Not Attach Compendium, Do Not Delete/merge, 16:28:29 injection/ aspiration joint/burs a (PROC) 2023 024 [email or web address] In-Office Order, Internal Use Only DO Not Attach Compendium DO Not Attach Compendium, Do Not Delete/merge, 12:39:23 Surgeries None recorded. Imaging MRI, shoulder, w/o contrast - PLEASE CONTACT PATIENT TO SCHEDULE 2023 024 [facility], [facility] , [place], [address], 18:40:05 XR, lumbar spine 2023 024 [email or web address] [facility] [place], [address], [place], [address], 16:28:29 XR, shoulder, 2 or more view 2023 024 [email or web address] [facility] [place], [address], [place], [address], 4 12:48:55 XR, hand 2022 023 [email or web address] [facility] [place], [address], [place], [address], 3 10:54:47 Medication Orders prednisone 10 mg tablets in a dose pack [email or web address] [id number], [address] [place], [place], [id number], 5 10:26:01 bupivacain e HCl 0.5 % (5 mg/mL) injection solution [email or web address] [facility] [address] [facility]12012, [address], [place], [id number], 4 15:43:21 Kenalog 10 mg/mL suspension for injection 2023 024 [email or web address] [facility], [address] [place], [id number], 4 15:43:21 bupivacain e HCl 0.5 % (5 mg/mL) injection solution 2023 024 [email or web address] [facility], [address] [place], [place], [id number], 4 15:43:21 Kenalog 10 mg/mL suspension for injection 2023 024 [email or web address] [facility], [address] [place], [id number], 4 15:43:21 Kenalog 10 mg/mL suspension for injection [address] [facility]54116, [address], [place], [place], [id number], 4 14:50:22 Marcaine 0.5 % (5 mg/mL) injection solution [address] [facility] #55484, [address], [place], [place], [id number], 4 14:50:44 Kenalog 10 mg/mL suspension for injection [address] [facility] #40915, [address] [place], [id number], 4 14:50:22 Marcaine (PF) 0.5 % (5 mg/mL) injection solution [address] [facility] #41228, [address] [place], [id number], 4 14:50:50 bupivacain e HCl 0.5 % (5 mg/mL) injection solution [address] [facility] #16095, [address], [id number], 4 14:50:44 Kenalog 10 mg/mL suspension for injection [address] [facility]67562, [address], [id number], 4 14:50:22 Patient TargetsNo targets recorded. Patient InstructionsNo instructions recorded. Reason for Referral Physical Therapist Referral for Pain of right shoulder joint Please contact patient to schedule Referring Physician: Juliette Orona, Orthopedic Surgery, Encounter Date: 04/09/2023 Physical Therapist Referral for Pain of right shoulder joint please contact patient to schedule Referring Physician: Juliette Orona, Orthopedic Surgery, Encounter Date: 04/03/2024 Results Created Date Observation Date Name Description Value Unit Range Abnormal Flag Note LastModifiedBy Organization Detail LastModifiedTime 11/02/19 23 11/01/2022 CBC/C OMPLE TE BLD COUNT W/DIF F white blood cells 6.8 x10'3 /uL 4.2-10 .8 Not Available [facility] (Lab) [address] [place], [address], 11/01/2022 14:27:30 11/02/19 23 11/01/2022 CBC/C OMPLE TE BLD COUNT W/DIF F red blood cells 5.06 x10'6 /uL 3.80-5 .20 Not Available [facility] (Lab) [address] [place], [address], 11/01/2022 14:27:30 11/02/19 23 11/01/2022 CBC/C OMPLE TE BLD COUNT W/DIF F hemoglobin 14.9 g/dL 12.0-1 5.6 Not Available [facility] (Lab) [address] [place], [address], 11/01/2022 14:27:30 11/02/19 23 11/01/2022 CBC/C OMPLE TE BLD COUNT W/DIF F hematocrit 43.6 % 35.7-4 5.7 Not Available [facility] (Lab) [address] [place], [address], 11/01/2022 14:27:30 11/02/19 23 11/01/2022 CBC/C OMPLE TE BLD COUNT W/DIF F mean red cell volume 86.2 fL 82.0-9 9.0 Not Available [facility] (Lab) [address] [place], [address], 11/01/2022 14:27:30 11/02/19 23 11/01/2022 CBC/C OMPLE TE BLD COUNT W/DIF F mean red cell hemoglobin 29.4 pg 27.0-3 3.0 Not Available [facility] (Lab) [address] [place], [address], 11/01/2022 14:27:30 11/02/19 23 11/01/2022 CBC/C OMPLE TE BLD COUNT W/DIF F mean RBC HGB concentratio n 34.2 g/dL 31.0-3 6.0 Not Available [facility] (Lab) [address] [place], [address], 11/01/2022 14:27:30 11/02/19 23 11/01/2022 CBC/C OMPLE TE BLD COUNT W/DIF F red cell distribution width 11.9 % 11.8-1 5.5 Not Available [facility] (Lab) [address] [facility], [address], 11/01/2022 14:27:30 11/02/19 23 11/01/2022 CBC/C OMPLE TE BLD COUNT W/DIF F platelets 310 x10'3 /uL 150-40 0 Not Available [facility] (Lab) [address] [place], [address], 11/01/2022 14:27:30 11/02/19 23 11/01/2022 CBC/C OMPLE TE BLD COUNT W/DIF F mean platelet volume 10.5 fL 9.0-12 .4 Not Available [facility] (Lab) [address] [place], [address], 11/01/2022 14:27:30 11/02/19 23 11/01/2022 CBC/C OMPLE TE BLD COUNT W/DIF F neutrophils 57.4 % 39.0-7 2.0 Not Available [facility] (Lab) [address] [place], [address], 11/01/2022 14:27:30 11/02/19 23 11/01/2022 CBC/C OMPLE TE BLD COUNT W/DIF F lymphocytes 32.2 % 16.0-4 7.0 Not Available [facility] (Lab) [address] [place], [address], 11/01/2022 14:27:30 11/02/19 23 11/01/2022 CBC/C OMPLE TE BLD COUNT W/DIF F monocytes 7.9 % 5.0-12 .0 Not Available [facility] (Lab) [address] [place], [address], 11/01/2022 14:27:30 11/02/1911/01/2022 CBC/C OMPLE TE BLD COUNT W/DIF F eosinophils 0.9 % 1.0-7. 0 low Not Available [facility] (Lab) [address] [place], [address], 11/01/2022 14:27:30 11/02/19 23 11/01/2022 CBC/C OMPLE TE BLD COUNT W/DIF F basophils 1.0 % 0.0-2. 0 Not Available [facility] (Lab) [address] [place], [address], 11/01/2022 14:27:30 11/02/19 23 11/01/2022 CBC/C OMPLE TE BLD COUNT W/DIF F immature granulocytes 0.6 % 0.00-0 .50 high Not Available [facility] (Lab) [address] [place], [address], 11/01/2022 14:27:30 11/02/19 23 11/01/2022 CBC/C OMPLE TE BLD COUNT W/DIF F neutrophils, absolute count 3.92 x10'3 /uL 1.5-8. 0 Not Available [facility] (Lab) [address] [place], [address], 11/01/2022 14:27:30 11/02/19 23 11/01/2022 CBC/C OMPLE TE BLD COUNT W/DIF F lymphocytes, absolute count 2.20 x10'3 /uL 1.07-3 .43 Not Available [facility] (Lab) [address] [place], [address], 11/01/2022 14:27:30 11/02/1911/01/2022 CBC/C OMPLE TE BLD COUNT W/DIF F monocytes, absolute count 0.54 x10'3 /uL 0.29-0 .99 Not Available [facility] (Lab) [address] [place], [address], 11/01/2022 14:27:30 11/02/19 23 11/01/2022 CBC/C OMPLE TE BLD COUNT W/DIF F eosinophils, absolute count 0.06 x10'3 /uL 0.02-0 .53 Not Available [facility] (Lab) [address] [place], [address], 11/01/2022 14:27:30 11/02/19 23 11/01/2022 CBC/C OMPLE TE BLD COUNT W/DIF F basophils, absolute count 0.07 x10'3 /uL 0.01-0 .08 Not Available [facility] (Lab) [address] [place], [address], 11/01/2022 14:27:30 11/02/1911/01/2022 CBC/C OMPLE TE BLD COUNT W/DIF F immature granulocytes ,absolute 0.04 x10'3 /uL 0.00-0 .05 Not Available [facility] (Lab) [address] [place], [address], 11/01/2022 14:27:30 11/02/19 23 11/01/2022 CBC/C OMPLE TE BLD COUNT W/DIF F nucleated red blood cells 0.0 % -0 Not Available [facility] (Lab) [address] [place], [address], 11/01/2022 14:27:30 11/02/19 23 11/01/2022 CBC/C OMPLE TE BLD COUNT W/DIF F NRBC# 0.00 x10'3 /uL Not Available [facility] (Lab) [address] [place], [address], 11/01/2022 14:27:30 11/02/19 23 11/01/2022 IRON/ TIBC PANEL total iron binding capacity 352 mcg/d L 265-47 5 Not Available [facility] (Lab) [address] [place], [address], 11/01/2022 14:50:22 11/02/19 23 11/01/2022 IRON/ TIBC PANEL % transferrin saturation 34 % 20-55 Not Available [facility] (Lab) [address] [place], [address], 11/01/2022 14:50:22 11/02/19 23 11/01/2022 IRON/ TIBC PANEL unsaturated iron bind capacity 231 mcg/d L 126-38 2 Not Available [facility] (Lab) [address] [place], [address], 11/01/2022 14:50:22 11/02/19 23 11/01/2022 IRON/ TIBC PANEL iron 121 mcg/d L 42-175 Not Available [facility] (Lab) [address] [place], [address], 11/01/2022 14:50:22 11/02/19 23 11/01/2022 COMPR EHENS ESTUARDO METAB OLIC PANEL sodium 136 mmol/ L 137-14 5 low Not Available [facility] (Lab) [address] [place], [address], 11/01/2022 14:49:29 11/02/19 23 11/01/2022 COMPR EHENS ESTUARDO METAB OLIC PANEL potassium 4.5 mmol/ L 3.5-5. 1 Not Available [facility] (Lab) [address] [place], [address], 11/01/2022 14:49:29 11/02/19 23 11/01/2022 COMPR EHENS ESTUARDO METAB OLIC PANEL chloride 103 mmol/ L 98-107 Not Available [facility] (Lab) [address] [place], [address], 11/01/2022 14:49:29 11/02/19 23 11/01/2022 COMPR EHENS ESTUARDO METAB OLIC PANEL carbon dioxide 26 mmol/ L 22-30 Not Available [facility] (Lab) [address] [place], [address], 11/01/2022 14:49:29 11/02/19 23 11/01/2022 COMPR EHENS ESTUARDO METAB OLIC PANEL anion gap 11.5 mmol/ L 14-22 low Not Available [facility] (Lab) [address] [place], [address], 11/01/2022 14:49:29 11/02/19 23 11/01/2022 COMPR EHENS ESTUARDO METAB OLIC PANEL glucose 95 mg/dL 70-99 Not Available [facility] (Lab) [address] [place], [address], 11/01/2022 14:49:29 11/02/19 23 11/01/2022 COMPR EHENS ESTUARDO METAB OLIC PANEL BUN 14 mg/dL 8-19 Not Available [facility] (Lab) [address] [place], [address], 11/01/2022 14:49:29 11/02/19 23 11/01/2022 COMPR EHENS ESTUARDO METAB OLIC PANEL creatinine 0.89 mg/dL 0.66-1 .25 Not Available [facility] (Lab) [address] [place], [address], 11/01/2022 14:49:29 11/02/19 23 11/01/2022 COMPR EHENS ESTUARDO METAB OLIC PANEL GFR >60 Refer ence Range : [place] ge GFR Healt hy Adult : >60 [...] or ethni c subgr oups, such as Hispr nics. Outsi de the valid ated teresa [...] calcu lator is avail able on the [facility] websi te: https ://ww w.kid li.o rg/pr ofess ional s/kdo qi/gf r_cal culat or Not Available [facility] (Lab) [address] [place], [address], 11/01/2022 14:49:29 11/02/19 23 11/01/2022 COMPR EHENS ESTUARDO METAB OLIC PANEL alkaline phosphatase 59 U/L 38-126 Not Available [facility] (Lab) [address] [place], [address], 11/01/2022 14:49:29 11/02/19 23 11/01/2022 COMPR EHENS ESTUARDO METAB OLIC PANEL alanine aminotransfe rase 24 U/L 0-35 Not Available [facility] (Lab) [address] [place], [address], 11/01/2022 14:49:29 11/02/19 23 11/01/2022 COMPR EHENS ESTUARDO METAB OLIC PANEL aspartate aminotransfe rase 27 U/L 15-37 Not Available [facility] (Lab) [address] [place], [address], 11/01/2022 14:49:29 11/02/19 23 11/01/2022 COMPR EHENS ESTUARDO METAB OLIC PANEL bilirubin, total 0.50 mg/dL 0.20-1 .30 Not Available [facility] (Lab) [address] [place], [address], 11/01/2022 14:49:29 11/02/19 23 11/01/2022 COMPR EHENS ESTUARDO METAB OLIC PANEL calcium 9.4 mg/dL 8.4-10 .2 Not Available [facility] (Lab) [address] [place], [address], 11/01/2022 14:49:29 11/02/19 23 11/01/2022 COMPR EHENS ESTUARDO METAB OLIC PANEL total protein 7.1 g/dL 6.3-8. 2 Not Available [facility] (Lab) [address] [place], [address], 11/01/2022 14:49:29 11/02/19 23 11/01/2022 COMPR EHENS ESTUARDO METAB OLIC PANEL albumin 4.2 g/dL 3.4-5. 0 Not Available [facility] (Lab) [address] [place], [address], 11/01/2022 14:49:29 11/02/19 23 11/01/2022 COMPR EHENS ESTUARDO METAB OLIC PANEL globulin 2.9 g/dL 2.6-4. 2 Not Available [facility] (Lab) [address] [place], [address], 11/01/2022 14:49:29 11/02/19 23 11/01/2022 COMPR EHENS ESTUARDO METAB OLIC PANEL A/G ratio 1.4 ratio 1.0-2. 0 Not Available [facility] (Lab) [address] [place], [address], 11/01/2022 14:49:29 11/02/19 23 11/01/2022 VITAM IN B12 (HARIS DONAVON ) vb12 754 pg/mL 239-93 1 Not Available [facility] (Lab) [address] [place], [address], 11/01/2022 16:26:25 11/02/19 23 11/01/2022 FOLAT E, SERUM /PLAS MA folate 13.3 NG/mL 2.76-2 0.0 Not Available [facility] (Lab) [address] [place], [address], 11/01/2022 16:26:27 11/02/19 23 11/01/2022 VITAM IN D 25-HY DROXY vd25oh 56.4 NG/mL 30-100 Vitam in D Statu s: Defic ient: <20 ng/mL Insuf ficie nt: 20-29 ng/mL Suffi cient : 30-10 0 ng/mL Not Available [facility] (Lab) [address] [place], [address], 11/01/2022 15:48:43 11/02/19 23 11/01/2022 T3 FREE free T3 3.2 pg/mL 2.77-5 .27 Not Available [facility] (Lab) [address] [place], [address], 11/01/2022 15:03:02 11/02/19 23 11/01/2022 T4 FREE free T4 0.92 NG/dL 0.78-2 .19 Not Available [facility] (Lab) [address] [place], [address], 11/01/2022 15:03:03 11/02/19 23 11/01/2022 TSH thyroid-stim ulating hormone 1.650 uIU/m L 0.465- 4.680 Not Available [facility] (Lab) [address] [place], [address], 11/01/2022 15:10:34 11/02/19 23 11/01/2022 BLANE TIN ferritin 27 NG/mL 6.24-1 37 Not Available [facility] (Lab) [address] [place], [address], 11/01/2022 15:11:10 08/11/19 23 XR, hand No observ ation record ed. [email or web address] [facility] [place] [address] [facility] [place] [place], [address], 08/10/2022 09:54:24 04/09/19 24 XR, shoul brenda, 2 or more view No observ ation record ed. [email or web address] [facility] [place] [address] [facility] [address], [address], 04/09/2023 12:48:53 06/07/19 24 XR, lumba r spine No observ ation record ed. [email or web address] [facility] [place] [address] [facility] [address] [place], [address], 06/07/2023 14:11:44 10/02/19 24 MRI, shoul brenda, w/o contr ast [facility] [address] [place] [address] [phone] Patien t Name: SAMANTHA RUCKER Access ion #: [id number] Sex: F : 1980 8 Dictat [...] frayin g in the distal Page 1 [facility] [address] [place] [address] [phone] Patien t Name: SAMANTHA RUCKER Access ion #: [id number] Sex: F : 1980 8 Dictat ed By: Adrien gramajo Attend ing Physic darrell: ADWOA SEGOVIA [facility] Physic darrell: JULIETTE ORONA Exam Date: 2023 12:46 PM Exam Name: MRI SHOULD ER RT WO Admitt ing Diagno sis(es ): supras pinatu s tendon . 2. Mild acromi oclavi cular hypert rophy with mild-t o-mode rate subacr omial / subdel toid bursit is. Electr onical ly Signed by: Adrien gramajo at 2023 15:37: 54 PM Page 2 [facility] (Imaging) [address] [place], [address], 10/03/2023 09:59:39 Result Notes Documentation Provider Name and Address Organization Details Recorded Time Mri, Shoulder, W/o Contrast : [facility] [address] [place] [address] Patient Name: SAMANTHA RUCKER Sex: F : 1980 Dictated By: Roosevelt Taylor Attending Physician: JULIETTE ORONA Ordering Physician: JULIETTE ORONA Exam Date: 10/02/2023 12:46 PM Exam Name: MRI SHOULDER RT WO Admitting Diagnosis(es): CLINICAL INFORMATION: 42 years old, Female; tendinitis of right rotator cuff. TECHNIQUE: Multisequence multiplanar MRI images of the right shoulder were obtained without contrast. COMPARISON: Radiographs dated 04/09/2023. FINDINGS: Acromioclavicular joint: There is mild acromioclavicular hypertrophy and znhf-ri-gplqnfsq edema. There is type 1 acromion. Small to moderate amount of fluid in the subacromial / subdeltoid bursa. Rotator cuff tendons: Mild tendinosis of the distal supraspinatus and infraspinatus tendons. Mild articular surface fraying of the distal supraspinatus tendon just proximal to its insertion. Subscapularis and teres minor tendons are intact and otherwise unremarkable. Biceps tendon: No significant tendinosis. No evidence of attrition or tear. Labrum: No labral tear identified. Bones: No fracture or focal marrow contusion. Muscles: Normal muscle bulk. No atrophy. Other: No other significant findings. IMPRESSION: 1. Rotator cuff tendinosis with mild articular surface fraying in the distal Page [address] [address] Patient Name: SAMANTHA RUCKER Sex: F : 1980 Dictated By: Roosevelt Taylor Attending Physician: ADWOA SEGOVIA Ordering Physician: JULIETTE ORONA Exam Date: 10/02/2023 12:46 PM Exam Name: MRI SHOULDER RT WO Admitting Diagnosis(es): supraspinatus tendon. 2. Mild acromioclavicular hypertrophy with ndpc-my-xoltyrup subacromial / subdeltoid bursitis. Page 2 RUKHSANA [place], [place] [facility] 10/03/2023 09:59:39 Problems Name Problem SNOMED Code Status Onset Date Resolution Date Notes Provider Name and Address Organization Details Recorded Time Hyperchole sterolemia 31534538 Active Not Available [facility] 3 00:48:03 Dry skin 37215303 Active Not Available [facility] 3 00:48:03 Asthma 416059147 Active Not Available [facility] 3 00:48:04 Abdominal pain 14748583 Active Not Available [facility] 3 00:48:04 Headache 62125009 Active Not Available [facility] 3 00:48:04 Depressive disorder 04466020 Active Not Available [facility] 3 00:48:04 Onychomyco sis 085509039 Active Not Available [facility] 3 00:48:04 Unintentio nal weight loss 217101541 Active Not Available [facility] 3 00:48:04 Gastritis 2278881 Active Not Available [facility] 3 00:48:04 Anxiety 50281610 Active Not Available [facility] 3 00:48:04 Diarrhea 94540854 Active Not Available [facility] 3 00:48:04 Inflammati on of sacroiliac joint 76958366 Active 2019 Not Available [facility] 3 00:48:04 Thyroid nodule 849003733 Active 2021 Not Available [facility] 3 00:48:04 Hypoglycem ia 888890674 Active 2021 Not Available [facility] 3 00:48:04 Vitamin D deficiency 65692596 Active 2021 Not Available [facility] 3 00:48:04 Vitamin B12 deficiency (non anemic) 52335257 Active 2021 Not Available [facility] 3 00:48:05 Tinea pedis 4285519 Active 2021 Not Available [facility] 3 00:48:04 Iron deficiency 50254915 Active 2021 Not Available [facility] 3 00:48:04 Pain of sacroiliac joint 554597536 Active 2022 Padma Angulo [employer] null, [place] [facility] 3 09:19:42 Low back pain 927879348 Active 2022 Padma Angulo [employer] null, [place] [facility] 3 09:19:51 Pain of multiple joints 73014164 Active 2022 Padma Angulo [employer] null, [place] [facility] 3 09:20:00 Pain of left hand 4599863908289 03 Active 2022 Padma Angulo [employer] null, [place] [facility] 3 09:20:42 Sprain of interphala ngeal joint of finger 65860568 Active 2022 NELI Morse [address] [facility] [place] [address], [place], [address] , [place] [facility] [place] [facility] 3 09:55:28 Pain of right shoulder joint 1879689721782 9100 Active 2023 Padma Angulo, RUKHSANA null, [place] [facility] [employer] [facility] 4 11:57:58 Tendinitis of right rotator cuff 6987953239644 9104 Active 2023 NELI Morse [address] [facility] [address], [place], [address] , [facility] [employer] [facility] 4 12:49:07 Impingemen t syndrome of right shoulder region 7789747137964 02 Active 2024 NELI Morse [address] [facility], [place], [address] , [facility] [employer] [facility] [employer] [facility] 5 10:25:02 Notes:herpes Problem Notes None recorded. Procedures Surgical History Date Name Laterality Status Provider Name and Address Organization Details Recorded Time Cholecystectomy completed Not Available [facility] 05/31/2022 00:43:48 Ablation completed Not Available [facility] 00:43:48 Removal of ovarian cyst(s) completed Not Available [facility] 05/31/2022 00:43:48 Hysterectomy completed Not Available [facility] 05/31/2022 00:43:48 Imaging Results None recorded. Procedure Notes None recorded. Medical Equipment None Reported. Allergies Allergen ID Allergen Name Allergen Category Reaction Reaction Severity Criticality Documentation Date Start Date Code Code System Note Provider Name and Address Organization Details Recorded Time 460 pravastat in medicatio n Not available Not available Not available 05/31/2022 25121 RxNorm Not Available [facility] 3 00:52:27 461 Dilaudid medicatio n Not available Not available Not available 05/31/2022 70896 3 RxNorm Not Available [facility] 3 00:52:27 462 codeine medicatio n Not available Not available Not available 05/31/2022 2670 RxNorm Not Available [facility] 3 00:52:27 Medications Name Sig Start [...] 40 mg by injection route. [address] [facility]: 0003- 0494- 20 Not Available Not Available [...] with needle 1 mL 31 gauge x 08/15 USE ONCE A WEEK WITH BEFORE-12 08/10 completed Not Available Not Available Not [...] Not Available Not Available No t Available hydroxyzine pamoate 25 mg capsule TAKE 1 CAPSULE BY MOUTH TWICE DAILY NEEDED active Not Available Not Available No t Available neomycin-po lymyxin-hyd rocort 3.5 mg-10,000 unit/mL-1 % ear drops,susp INSTILL 4 DROPS INTO THE LEFT EAR THREE TIMES DAILY FOR 5 DAYS 06/24 completed Not Available Not Available Not Available escitalopra m 10 mg tablet TAKE 1 TABLET BY MOUTH EVERY DAY active Not Available Not Available No t Available ezetimibe 10 mg tablet Take 1 tablet every day by oral route. 05/11 completed Not Available Not Available Not Available cyclobenzap rine 5 mg tablet TK 1 T PO Q 8 H 11/15 completed Not Available Not Available Not Available Allergy Relief (loratadine ) 10 mg tablet TAKE 1 TABLET BY MOUTH DAILY NEEDED FOR ALLERGIC SYMPTOMS active Not Available Not Available No t Available cholestyram ine (with sugar) 4 gram [...] administe red by the provider 06/[address] [facility]: [id number] Not Available Not Available [...] Updated DateTime 04/03/2024 157.48 cm 21.9 kg/m2 90398.08 g [employer], [employer] 04/03/2024 09:44:34 Date Recorded Body height Body mass index (BMI) Body weight Provider Name and Address Organization Details Last Updated DateTime 04/09/2023 157.48 cm 24.7 kg/m2 42498.97 g [employer], [employer] 04/09/2023 11:57:33 Date Recorded Body height Body mass index (BMI) Body weight Provider Name and Address Organization Details Last Updated DateTime 06/07/2023 157.48 cm 25.6 kg/m2 39389.93 g [employer], [employer] 06/07/2023 13:28:18 Date Recorded Body height Body mass index (BMI) Body weight Provider Name and Address Organization Details Last Updated DateTime 08/10/2022 157.48 cm 23.8 kg/m2 10842.01 g [employer], [employer] [facility] 08/10/2022 09:13:48 Date Recorded Body height Body mass index (BMI) Body weight Provider Name and Address Organization Details Last Updated DateTime 09/07/2023 157.48 cm 23.8 kg/m2 32757.01 eliu Bhatt [place] [employer] 09/07/2023 14:48:16 Social History Question Answer Notes LastModified by [employer] Details LastModified Time Tobacco Smoking Status Current Every Day Smoker Not Available [facility] 05/31/2022 00:42:34 What Is Your Level Of Caffeine Consumption? None [id number] Information not available 05/31/2022 In The 14 Days Before Symptom Onset, Have You Had Close Contact With A Laboratory-confirm ed COVID-19 While That Case Was Ill? No MIGRATION.[id number] 026 Information not available 05/31/2022 In The 14 Days Before Symptom Onset, Have You Had Close Contact With A Person Who Is Under Investigation For COVID-19 While That Person Was Ill? No MIGRATION.[id number] 026 Information not available 05/31/2022 What Type Of Diet Are You Following? REGULAR MIGRATION.[id number] 026 Information not available 05/31/2022 Have You Ever Been Counseled For Unhealthy Alcohol Use? No MIGRATION.[id number] 026 Information not available 05/31/2022 What Is Your Relationship Status? MIGRATION.[id number] 026 Information not available 05/31/2022 How Much Tobacco Do You Smoke? 0.5 PPD Information not available 08/10/2022 How Many Years Have You Smoked Tobacco? 20 MIGRATION.[id number] 026 Information not available 05/31/2022 Have You Recently Traveled Abroad? No MIGRATION.[id number] 026 Information not available 05/31/2022 Do You Have Any Dietary Restrictions? No MIGRATION.[id number] 026 Information not available 05/31/2022 Sex: Female Functional Status Question Answer Note LastModified by [employer] Details LastModified Time Do you use any illicit or recreational drugs? No MIGRATION.[id number] 026 Information not available 05/31/2022 What is your level of alcohol consumption? 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 Family History Relationship Description Onset Age of this Age Resolved Age Notes LastModified by Organization Details LastModified Time Mother Heart disease self [email or web address] Not available 2023 14:51:51 Mother Diabetes mellitus [id number] Not available 05/31/2022 00:43:51 Maternal Grandfather Acute stroke MIGRATION.0 30 [id number] Not available 05/31/2022 00:43:51 Medical History Condition Response ARTHRITIS Y ALLERGIES/HAYFEVER Y HEARTBURN / REFLUX Y HIGH CHOLESTEROL / HYPERLIPIDEMIA Y USE OF NSAIDS Y BACK / NECK PROBLEMS Y DEPRESSION (INCLUDING POST ) Y GI PROBLEMS Y ANXIETY DISORDER Y GERD/NAUSEA Y ANEMIA/BLOOD DISORDER Y FIBROMYALGIA Y URINARY/BLADDER/KIDNEY PROBLEMS Y Gynecological HistoryNo gynecological history recorded. Obstetrics History GPAL:G 0 P 0 0 0 0 Past Encounters Encounter ID Performer Location Encounter Start Date Encounter Closed Date Diagnosis/Indication Diagnosis SNOMED-CT Code Diagnosis ICD10 Code Diagnosis IMO Codes Diagnosis Note [id number] NELI Morse [facility] [address] [place] [address] 06/01/2020 00:00:00 06/01/2020 15:52:37 [id number] NELI Morse [facility] [address] [place] [address] 08/03/2020 00:00:00 08/03/2020 15:55:30 [id number] NELI Morse [facility] [address] [place] [address] 11/15/2020 00:00:00 11/15/2020 11:27:46 [id number] NELI Morse [facility] [address] [place] [address] 01/13/2021 00:00:00 01/13/2021 11:40:53 [id number] Thong Fragoso MD [facility] [address] [place] [address] 06/01/2021 00:00:00 06/01/2021 09:58:34 [id number] [facility] [address] [place] [address] 06/27/2021 00:00:00 06/27/2021 17:14:27 [id number] [facility] [address] [place] [address] 08/25/2021 00:00:00 08/25/2021 18:48:59 [id number] Thong Fragoso MD [facility] [address] [place] [address] 09/12/2021 00:00:00 09/12/2021 11:37:10 [id number] [facility] [address] [place] [address] 09/27/2021 00:00:00 09/27/2021 18:35:43 [id number] [facility] [address] [place] [address] 01/27/2022 00:00:00 01/27/2022 14:02:25 [id number] Thong Fragoso MD [facility] [address] [place] [address] 08/10/2022 09:02:08 08/10/2022 10:54:47 Pain of sacroiliac joint 501926463 M53.3 Low back pain 856378016 M54.50 Pain of mu ltiple joints 10001433 M25.50 Pain of left hand 011551 4305 84971 M79.642 Sprain of interphalangeal joint of finger 79402892 S63.631A [id number] Baron Rousseau MD [facility] [address] [place] [address] 04/09/2023 11:52:44 04/09/2023 12:41:54 Pain of right shoulder joint 0582018597 5243260 M25.511 Tendinitis of right rotator cuff 7811353569 2959664 M67.278 [id number] Lazaro Lopez MD [facility] [address] [place] [address] 06/07/2023 13:23:59 06/07/2023 15:02:47 Pain of right shoulder joint 6383202444 3124294 M25.511 Tendinitis of right rotator cuff 4373999549 4698689 M67.813 Low back pain 439317486 M54.50 Pain of sa croiliac joint 232940696 M53.3 [id number] Lazaro Lopez MD [facility] [address] [place] [address] 09/07/2023 14:32:10 09/07/2023 15:25:32 Pain of right shoulder joint 8059840501 7992928 M25.511 Tendinitis of right rotator cuff 7933932671 7545406 M67.813 Pain of sa croiliac joint 636509141 M53.3 [id number] Lazaro Lopez MD [facility] [address] [place] [address] 04/03/2024 09:39:54 04/03/2024 10:28:08 Pain of right shoulder joint 0398497968 0793032 M25.511 Tendinitis of right rotator cuff 5974689502 4637267 M67.813 Impingemen t syndrome of right shoulder region 4139135611 19319 M75.41 [id number] Keren Smith NP [facility] [address] [address] 04/24/2024 10:05:04 04/24/2024 14:01:05 [id number] Keren Smith NP [facility] [address] [address] 06/16/2024 12:18:54 06/16/2024 14:28:00 Health Concerns Section Related Observation LastModified by Organization Detai ls LastModified Time None Recorded Concern Status LastModified by Organization Details LastModified Time None Recorded Advance Directives Directive None Recorded Payers Insurance Date Sequence Insurance Name Policy Number Policy Escamilla Covered Member ID Escamilla Member ID Guarantor Name 12/24/2024 1 [facility] - HOME CARE & RN CLINICAL FUND - OPEN ACCESS III (PPO) [id number] Samantha Rucker [id number] Samantha Rucker Notes Date Note Type Note [...] today with the patient. NELI Morse [address] [facility] [address], [facility] [address], [place], [address], [facility] [email or web address] 08/10/2022 09:55:58 04/09/2023 text/html patient returns today with a new problem. She has right shoulder pain ongoing for about a year. Over the past 2-3 months it has been much worse she described occasional aching tnsp-yy-ehralxyq pain that radiate into the upper arm [...] a scale 1-10 some days. NELI Morse [address] [place] [address], [facility] [address], [place], [address], [place] [facility] [employer] 04/09/2023 12:49:41 06/07/2023 text/html Patient returns complaining [...] cannot take these medications. NELI Morse [address], [facility] [address], [place], [address], [place] [employer] 06/07/2023 14:16:22 09/07/2023 text/html Patient returns with [...] her last cortisone injections. NELI Morse [address], [place], [address], [employer] 09/07/2023 16:05:09 04/03/2024 text/html the patient returns for follow up of her right shoulder. [...] symptoms with it. She has seen a investor relations manager he put her on Celebrex for [...] further treatment if necessary. NELI Morse [address], [facility] [address], [place], [address], [employer] 04/03/2024 10:25:59 OBGyn Episode No OBEpisode recorded.
--- OUTSIDE RECORDS SUMMARY | 2025-02-05 14:44 | XMS_ITS | Clinical Summary ---
Author Organization [facility] Address [address] [place] [address] Care Team Providers Care Packer Dried Beef Name Role Phone Adrian Bryant MD Primary [...] patient's age to complete this topic Insurance [email or web address] OPEN ACCESS [facility] Care Teams Packer Dried Beef Relationship Specialty Start Date End Date Adrian Bryant MD PCP - General INTERNAL MEDICINE 01/11/22
--- OUTSIDE RECORDS SUMMARY | 2025-02-05 14:44 | XMS_ITS | Clinical Summary ---
Author Organization [address] Address [address] [place] [address] Care Team Providers Care Bead Picker Name Role Phone Dc Brooks MD Unavailable [phone] Caity Sanabria NP Unavailable [phone] Pamela Parekh MD Primary Care Provider [phone] Allergies Active Allergy Reactions Criticality Noted Date [...] 05/18/2021 Assessment & Plan (05/18/2021 3:13 PM PHONOGRAPH MECHANIC): I did request the chest x-ray from [facility] in [place]. I have also ordered another chest x-ray [...] 11/05/2019 Assessment & Plan (05/18/2021 3:11 PM PHONOGRAPH MECHANIC): The patient was once again encouraged to [...] complication Assessment & Plan (05/18/2021 3:11 PM PHONOGRAPH MECHANIC): The patient was given sample of Breztri [...] Trelegy. Assessment & Plan (06/04/2019 10:51 AM PHONOGRAPH MECHANIC): The patient did have significant improvement following bronchodilators. I will give her a trial of Symbicort 160/4.5 and albuterol MDI to see if this improves her symptoms. Shortness of breath 05/14/2019 Assessment & Plan (05/14/2019 8:43 AM PHONOGRAPH MECHANIC): The patient quit smoking 2 months ago and smoked up to 1 pack of cigarettes a day for 27 years. With her dyspnea on exertion, I will check full PFTs and a 6 minute walk test. Other chest pain 05/14/2019 Assessment & Plan (06/04/2019 10:52 AM PHONOGRAPH MECHANIC): I will hold off on a CT angiogram of the chest at this time since she felt like the chest pain improved after the nebulizer treatment. Assessment & Plan (05/14/2019 8:42 AM PHONOGRAPH MECHANIC): The patient has had a previous cardiac [...] on file Legal Sex Female 9:08 PM PHONOGRAPH MECHANIC Gender Identity Female 07/01/2021 12:01 PM CDT [...] patient's age to complete this topic Insurance [employer] OPEN ACCESS [employer] OPEN ACCESS [employer] OPEN ACCESS Care Teams Bead Picker Relationship Specialty Start Date End Date Pamela Parekh MD PCP - General Family Medicine 09/04/23 Dc Brooks MD Obstetrics and Gynecology 05/14/19 Caity Sanabria NP Nurse Practitioner Nurse Practitioner 01/12/22
--- OUTSIDE RECORDS SUMMARY | 2025-02-05 14:45 | XMS_ITS | Encounter Summary ---
Author Organization [facility] Address [address] [place] [address] Care Team Providers Care Supervisor Powdered Metal Name Role Phone Unavailable Primary Care Provider Unavailabl e Encounter Details Date Type Department Care Team (Late st Contact Info) Description 02/04/2025 External Device Data [facility] ABSTRACTION Provider, [...] as of this encounter Plan of Treatment Upcoming Encounters Date Type Department Care Team (Late st Contact Info) Description 02/10/2025 4:30 PM [facility] COMBAT RESCUE Telephone Check Up [facility] Oncology and Hematology - [place] [address] [place] [address] Jennifer Melendez MD [address] [place] [address] documented as of this encounter Visit Diagnoses Not on filedocumented in this encounter
--- OUTSIDE RECORDS SUMMARY | 2025-02-05 14:45 | XMS_ITS | Clinical Summary ---
Author Organization [facility] [employer] Address [address] [place] [address] Care Team Providers Care Decorating Machine Operator Name Role Phone Adrian Bryant MD Primary Care Provider [phone] Source Comments [facility] [employer],non-general [facility] Affiliates and Associated Physician Practices is amultiple site organization consisting of ambulatory clinics and hospital sitesin [place], [place], [place] and [place]. This disclosure is being madepursuant to the Care Everywhere program and may not contain all information available regarding this patient. 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 Gender Identity Not on file Sexual Orientation [...] patient's age to complete this topic Insurance [employer] * Guarantor: SAMANTHA RUCKER Account Type Relation to Patient Date of Phone Billing Address Personal/Family [address] [place], [place] [phone] [employer] SELF PA[employer] NO INSURANCE Member Subscriber Plan / Payer (Ef fective for All Dates) Name:Samantha Rucker Starr Member ID:Not on file Relation to Subscriber:Not on file Name:SAMANTHA RUCKER Subscriber ID:Not on file Address: [address] [place] [address] Payer ID:Not on file Group ID:Not on file Type:Self Pay Address: [place], [place] * Guarantor: SAMANTHA RUCKER Account Type Relation to Patient Date of Phone Billing Address Personal/Family [address] [place], [place] [id number] [employer] SELF PAY NO INSURANCE Member Subscriber Plan / Payer (Ef fective for All Dates) Name:Samantha Rucker Starr Member ID:Not on file Relation to Subscriber:Not on file Name:ALKASAMANTHA Subscriber ID:Not on file Address: [address] [place], [place] [id number] Payer ID:Not on file Group ID:Not on file Type:Self Pay Address: [place], [place] * Guarantor: SAMANTHA RUCKER Account Type Relation to Patient Date of Phone Billing Address Personal/Family [address] [place] [address] [employer] SELF PA[employer] NO INSURANCE Member Subscriber Plan / Payer (Ef fective for All Dates) Name:Samantha Rucker Member ID:Not on file Relation to Subscriber:Not on file Name:SAMANTHA RUCKER Subscriber ID:Not on file Address: [address] [place] [address] Payer ID:Not on file Group ID:Not on file Type:Self Pay Address: [place], [place] Care Teams Decorating Machine Operator Relationship Specialty Start Date End Date Adrian Bryant MD [address] [place] [id number] PCP - General 11/25/20
--- OUTSIDE RECORDS SUMMARY | 2025-02-05 14:45 | XMS_ITS | Data Portability ---
Author Organization BENJA Pascale POWELL Address [address] [place] [address] Care Team Providers Care Press Pipe Inspector Name Role Phone ROCIO MORRIS Hand I Cutter Assessment Encounter Date Assessment Date Assessment LastModified by Organization Details LastModified Time 12/02/2021 12/02/2021 ANTOINETTE Monet PA-S Not available 12/06/2021 07:29:45 Plan of Treatment Reminders Order Date Submit Date Provider Last Modified By Organization Details Last Modified Time Details Appointments None recorded. Lab lh + FSH, serum 2022 023 [facility], [address], [place], [address], 3 03:08:21 estradiol, serum 2022 023 [facility], 20[address], [address], [place], [address], 3 03:08:20 TSH + free T4, serum 2022 023 [facility], [address], [address], [place], [address], 3 03:08:18 urinalysis, dipstick 2022 023 [email or web address] In-Office Order, Internal Use Only DO Not Attach Compendium DO Not Attach Compendium, Do Not Delete/merge, [id number] 3 11:40:38 culture, urine 2022 023 [facility], [address], [address], [place], [address], 3 03:08:21 HbA1c (hemoglobin A1c), blood 2022 023 [facility], [address], [address], [place], [address], 3 03:08:19 bacterial vaginosis score, VENTURA+probe, vaginal fluid (OBS) 2021 022 [facility], [address], [address], [place], [address], 2 20:07:53 Referral orthopedic surgeon referral 2022 023 [facility], [address], [place], [address], 3 14:17:33 hematologis t referral 2022 023 YESICA Baptiste MD, [address], [place], [address], 3 23:42:08 breast surgery referral 2022 023 [facility], [address], [address], [place], [address], 4 14:11:01 Procedures None recorded. Surgeries None recorded. Imaging US, doppler, arterial 2022 023 [facility] ([facility]), [address] [place], [address], 3 12:42:32 US, pelvis, transabdomi nal + transvagina l - follow up CT scan 01/21/23, possible abscess vrs. L. adnexal cyst measuring [id number] 2022 023 [facility] ([facility]), [address] [place], [address], 3 09:45:41 US, pelvis, transabdomi nal + transvagina l [address] ([facility] Scheduling), [address] [place], [address], 3 09:05:06 MAMMO, diagnostic, digital, bilateral [address] ([facility] Call Scheduling), [address] [place], [address], 3 16:16:29 US, breast, bilateral 2022 023 [facility] ([facility]), [address] [place], [address], 3 17:13:52 MAMMO, screening, bilateral [address] ([facility] Scheduling), [address] [place], [address], 2 20:45:10 Medication Orders pregabalin 50 mg capsule [address] [id number], [address] [facility], [place], [place], [id number], 3 13:46:16 Patient TargetsNo targets recorded. Patient Instructions Encounter Date Encounter Id Patient Instructions Last Modified By Organization Details Last Modified Time 12/02/2021 [id number] learning about breast cancer screening Not available 12/02/2021 17:10:23 Follow up with PCP and GI for IBS symptoms. [email or web address] Not available 12/14/2021 15:54:06 01/26/2023 [id number] Kya MORA discussed case with Lachelle Morris PA-C Not available 01/26/2023 16:55:15 03/15/2023 [id number] Follow up with PCP for abdominal pain, normal CT results [email or web address] Not available 03/30/2023 17:31:14 Kulwinder Mcdonald Discussed with Lachelle Morris PA-C [email or web address] Not available 03/30/2023 17:29:01 Reason for Referral Breast Surgery Referral for Multiple cysts of breast Referring Physician: Rocio Morris, Partridge Farmer, Encounter Date: 11/22/2022 Orthopedic Surgeon Referral for Pain in bilateral lower legs Referring Physician: Adrian Bryant, Internal Medicine, Encounter Date: 02/20/2023 Referring Physician: Adrian Bryant, Internal Medicine, Encounter Date: 02/20/2023 Results Created Date Observation Date Name Description Value Unit Range Abnormal Flag Note LastModifiedBy Organization Detail LastModifiedTime 12/03/19 22 12/10/2021 NUSWA B VG+, HSV atopobium vaginae Low - 0 score Not Available [facility] ([facility]) [address] [place], [address], 12/10/2021 20:07:53 12/03/19 22 12/10/2021 NUSWA B VG+, HSV bvab 2 Low - 0 score Not Available [facility] ([facility]) [address] [place], [address], 12/10/2021 20:07:53 12/03/19 22 12/10/2021 NUSWA B VG+, HSV megasphaera 1 Low [...] prese nce of BV. This test was devel seaned and its perfo rmanc e diana cteri stics deter mined by [facility]. It has not been clear ed or appro uriel by the Food and Drug Admin istra tion. Not Available [facility] ([facility]) [address] [place], [address], 12/10/2021 20:07:53 12/03/19 22 12/10/2021 NUSWA B VG+, HSV serena albicans, VENTURA Negati ve negati ve Not Available [facility] ([facility]) [address] [place], [address], 12/10/2021 20:07:53 12/03/19 22 12/10/2021 NUSWA B VG+, HSV serena glabrata, VENTURA Negati ve negati ve Not Available [facility] ([facility]) [address] [place], [address], 12/10/2021 20:07:53 12/03/19 22 12/10/2021 NUSWA B VG+, HSV trich vag by VENTURA Negati ve negati ve Not Available [facility] ([facility]) [address] [place], [address], 12/10/2021 20:07:53 12/03/19 22 12/10/2021 NUSWA B VG+, HSV chlamydia trachomatis, VENTURA Negati ve negati ve Not Available [facility] ([facility]) [address] [place], [address], 12/10/2021 20:07:53 12/03/19 22 12/10/2021 NUSWA B VG+, HSV neisseria gonorrhoeae, VENTURA Negati ve negati ve Not Available [facility] ([facility]) [address] [place], [address], 12/10/2021 20:07:53 12/03/19 22 12/10/2021 NUSWA B VG+, HSV hsv 1 VENTURA Negati ve negati ve Not Available [facility] ([facility]) [address] [place], [address], 12/10/2021 20:07:53 12/03/19 22 12/10/2021 NUSWA B VG+, HSV hsv 2 VENTURA Negati ve negati ve Not Available [facility] ([facility]) [address] [place], [address], 12/10/2021 20:07:53 03/15/20 23 03/16/2023 TSH+F REE T4 TSH 1.720 uIU/m L 0.450- 4.500 Not Available [facility] ([facility]) [address] [place], [address], 03/17/2023 03:08:18 03/15/20 23 03/16/2023 TSH+F REE T4 T4,free(dire ct) 1.30 NG/dL 0.82-1 .77 Not Available [facility] ([facility]) [address] [place], [address], 03/17/2023 03:08:18 03/15/2003/16/2023 HEMOG LOBIN A1C hemoglobin A1C 5.4 % 4.8-5. 6 Predi abete s: 5.7 - 6.4 Diabe kelsey: >6.4 Glyce debi contr ol for adult s with diabe kelsey: <7.0 Not Available [facility] ([facility]) [address] [place], [address], 03/17/2023 03:08:19 03/15/20 23 03/16/2023 ESTRA DIOL estradiol 9.1 pg/mL Adult Femal e Range Folli cular phase 12.5 - 166.0 Ovula tion phase 85.8 - 498.0 Lutea l phase 43.8 - 211.0 Postm enopa usal <6.0 - 54.7 Pregn kirk 1st trime ster 215.0 - >4300 .0 Jeni ECLIA metho dolog y Not Available [facility] ([facility]) [address] [place], [address], 03/17/2023 03:08:20 03/15/20 23 03/16/2023 URINE CULTU RE, ROUTI NE urine culture, routine Final report Not Available [facility] ([facility]) [address] [place], [address], 03/17/2023 03:08:20 03/15/2003/16/2023 URINE CULTU RE, ROUTI NE result 1 Commen t Mixed uroge nital donna 10,00 0-25, 000 colon y formi ng units per mL Not Available [facility] ([facility]) [address] [place], [address], 03/17/2023 03:08:20 03/15/2003/16/2023 FSH AND LH LH 64.0 mIU/m L Adult Femal e Range Folli cular phase 2.4 - 12.6 Ovula tion phase 14.0 - 95.6 Lutea l phase 1.0 - 11.4 Postm enopa usal 7.7 - 58.5 Not Available [facility] ([facility]) [address] [place], [address], 03/17/2023 03:08:21 03/15/2003/16/2023 FSH AND LH FSH 116.0 mIU/m L Adult Femal e Range Folli cular phase 3.5 - 12.5 Ovula tion phase 4.7 - 21.5 Lutea l phase 1.7 - 7.7 Postm enopa usal 25.8 - 134.8 Not Available [facility] ([facility]) [address] [place], [address], 03/17/2023 03:08:21 03/15/2003/15/2023 urina lysis , dipst ick Leukocytes Negati ve Not Available In-Office Order Internal Use Only DO Not Attach Compendium DO Not Attach Compendium, Do Not Delete/merge, [facility] 03/15/2023 11:30:13 03/15/20 23 03/15/2023 urina lysis , dipst ick Nitrite negati ve Not Available In-Office Order Internal Use Only DO Not Attach Compendium DO Not Attach Compendium, Do Not Delete/merge, [facility] 03/15/2023 11:30:13 03/15/20 23 03/15/2023 urina lysis , dipst ick Urobilinogen .2 Not Available In-Of fice Order Internal Use Only DO Not Attach Compendium DO Not Attach Compendium, Do Not Delete/merge, [facility] 03/15/2023 11:30:13 03/15/2003/15/2023 urina lysis , dipst ick Protein Negati ve Not Available In-Office Order Internal Use Only DO Not Attach Compendium DO Not Attach Compendium, Do Not Delete/merge, [facility] 03/15/2023 11:30:13 03/15/20 23 03/15/2023 urina lysis , dipst ick pH 5.5 Not Available In-Office Order Internal Use Only DO Not Attach Compendium DO Not Attach Compendium, Do Not Delete/merge, [facility] 03/15/2023 11:30:13 03/15/20 23 03/15/2023 urina lysis , dipst ick Blood Non-He molyze d: Trace Not Available In-Office Order Internal Use Only DO Not Attach Compendium DO Not Attach Compendium, Do Not Delete/merge, [facility] 03/15/2023 11:30:13 03/15/20 23 03/15/2023 urina lysis , dipst ick Specific [place] 1.030 Not Available In-Off ice Order Internal Use Only DO Not Attach Compendium DO Not Attach Compendium, Do Not Delete/merge, [facility] 03/15/2023 11:30:13 03/15/20 23 03/15/2023 urina lysis , dipst ick Ketone Negati ve Not Available In-Office Order Internal Use Only DO Not Attach Compendium DO Not Attach Compendium, Do Not Delete/merge, [id number] 03/15/2023 11:30:13 03/15/20 23 03/15/2023 urina lysis , dipst ick Bilirubin Small Not Available In-Offic e Order Internal Use Only DO Not Attach Compendium DO Not Attach Compendium, Do Not Delete/merge, [id number] 03/15/2023 11:30:13 03/15/20 23 03/15/2023 urina lysis , dipst ick Glucose Negati ve Not Available In-Office Order Internal Use Only DO Not Attach Compendium DO Not Attach Compendium, Do Not Delete/merge, [id number] 03/15/2023 11:30:13 12/22/19 22 12/19/2021 MAMMO , scree kit, bilat eral No observ ation record ed. [email or web address] [facility] [address] [place], [address], 12/22/2021 15:46:02 01/11/20 22 01/10/2022 US, breas t, bilat eral No observ ation record ed. [facility] [address] [place], [address], 01/11/2022 20:34:09 01/15/20 22 01/14/2022 XR, knee No observ ation record ed. [facility] [address] [place], [address], 11/22/2022 10:57:26 03/25/20 22 03/25/2022 XR, ribs, unila teral No observ ation record ed. [email or web address] [facility] [address] [place], [address], 03/31/2022 06:00:56 10/29/19 23 10/28/2022 CT, abdom en + pelvi s, w/ contr ast No observ ation record ed. [address] [place], [address], 11/02/2022 01:14:05 12/15/19 23 12/14/2022 US, breas t, bilat eral No observ ation record ed. [facility] [address] [place], [address], 12/15/2022 08:50:31 12/15/1912/14/2022 MAMMO , diagn ostic , digit al, bilat eral No observ ation record ed. [address] [place], [address], 01/26/2023 16:43:04 12/15/19 23 12/14/2022 US, pelvi s, trans abdom inal + trans vagin al No observ ation record ed. [address] [place], [address], 01/26/2023 16:43:05 01/22/20 23 01/21/2023 CT, abdom en + pelvi s, w/ contr ast No observ ation record ed. [address] [place], [address], 01/26/2023 16:43:03 02/15/20 23 02/13/2023 US, pelvi s, trans abdom inal + trans vagin al No observ ation record ed. [facility] ([facility]) [address] [place], [address], 03/14/2023 16:39:16 03/08/20 23 03/08/2023 CT, abdom en + pelvi s, w/ contr ast No observ ation record ed. [facility] [address] [place], [address], 03/22/2023 16:44:32 03/27/20 23 03/09/2023 US, doppl er, arter ial No observ ation record ed. [email or web address] Not Available 2023 09:40:54 04/11/19 24 04/10/2023 MAMMO , scree kit, bilat eral No observ ation record ed. [address], [place], [address], 04/25/2023 05:09:13 05/02/19 24 05/01/2023 XR, chest No observ ation record ed. [address] [place], [address], 05/02/2023 11:53:35 07/20/19 24 07/20/2023 CT, abdom en + pelvi s, w/ contr ast No observ ation record ed. [address] ([facility] Sched[facility]) [address] [place], [address], 08/05/2023 20:11:27 10/15/19 24 10/12/2023 trans -thor acic echoc ardio gram (TTE) (PROC ) No observ ation record ed. [address] [facility] [address], [place], [address], 10/17/2023 05:51:10 01/04/20 24 01/04/2024 cardi ac stres s test No observ ation record ed. [address] [facility] [address], [place], [address], 01/08/2024 11:54:07 05/01/19 25 04/30/2024 cardi ac acous tic wavef orm recor ding with autom ated [facility] coron narayan arter y disea se risk score (PROC ) No observ ation record ed. [address] [facility] [address], [place], [address], 05/01/2024 21:35:16 Result Notes None recorded. Problems Name Problem SNOMED Code Status Onset Date Resolution Date Notes Provider Name and Address Organization Details Recorded Time Disorder of vitamin D 382080948 Active Not Available [facility] 3 07:15:16 Ankle pain 735231348 Completed 08/09/2017 Dc Cecilia opal BENJA Calhoun SIGARRETT 8 18:32:29 Vaginal discharg e 773871259 Completed 12/16/2018 Dc joseph BENJA POWELL 9 16:59:43 Acute vulvitis 32328290 Active Not Available [facility] 3 07:15:16 Gastroes ophageal reflux disease 956435473 Active Not Available [facility] 3 07:15:16 Fatigue 13075895 Completed 12/16/2018 Dc Cecilia opal BENJA Calhoun SIGARRETT 9 17:00:12 Periodic limb movement disorder 060667824 Completed 08/09/2017 Dc joseph BENJA - [place] 8 18:32:40 Tinea pedis 8501163 Active Not Available [facility] 3 07:15:16 Pruritus ani 43417494 Completed 08/09/2017 Dc Ceciliaprimitivo joseph BENJA - SIGARRETT 9 14:52:03 Dermatit is Completed 08/09/2017 Dc Cecilia opal BENJA - [place] 8 18:32:15 Bipolar disorder 79723790 Active Not Available [facility] 3 07:15:16 Allergic rhinitis 34960782 Active Not Available [facility] 3 07:15:16 Inflamma tion of cervix 55984643 Completed 08/09/2017 Dc joseph BENJA - [facility] 8 18:32:37 Colitis 98600027 Active Not Available [facility] 3 07:15:16 Candidia sis 68185271 Completed 08/09/2017 Dc Ceciliaprimitivo joseph BENJA - [facility] 8 18:33:20 Decrease in appetite 44612089 Completed 08/09/2017 Dc joseph BENJA - [place] 8 18:33:44 On examinat ion - vaginal discharg e Completed 08/09/2017 BENJA [place] - [facility] 8 18:32:06 Irritabl e bowel syndrome 29936039 Active Not Available [facility] 3 07:15:16 Allergic conditio n 051295774 Completed 12/16/2018 BENJA Shannon SIGARRETT 9 16:59:59 Cough 80290028 Completed 08/09/2017 BENJA Shannon - [facility] 8 18:33:33 Wheezing 27981456 Completed 08/09/2017 BENJA Shannon - [facility] 8 18:33:39 Tobacco user 575329899 Active Not Available [facility] 3 07:15:16 Migraine 43113996 Active Not Available [facility] 3 07:15:16 Hyperlip idemia 01519658 Active Not Available [facility] 3 07:15:16 Backache 687613445 Completed 08/09/2017 BENJA Shannon - [place] 8 18:32:02 Annular tear of lumbar disc 786905925 Active Not Available [facility] 3 07:15:16 Dysmenor baljeet 393175050 Completed 12/16/2018 BENJA Shannon - [place] 9 16:59:17 Depressi ve disorder 99516977 Active Not Available [facility] 3 07:15:16 Insomnia 315780772 Completed 08/09/2017 BENJA Shannon - [facility] 8 18:33:51 Muscle spasm of cervical muscle of neck 16467765618 4 Completed 08/09/2017 BENJA Shannon - [facility] 8 18:32:23 Vitamin D deficien cy 42989086 Active Not Available [facility] 3 07:15:16 Dermal mycosis 65871251 Completed 08/09/2017 BENJA Shannon - [facility] 8 18:32:19 Pain of shoulder region 09685682 Completed 08/09/2017 Dc joseph [place] - [facility] 8 18:32:48 Onychomy cosis 082475495 Active Not Available [facility] 3 07:15:16 Urinary tract infectio us disease 56821712 Active Not Available [facility] 3 07:15:16 Night sweats 60832747 Completed 08/09/2017 Dc joseph BENJA - [facility] 8 18:32:46 Mild depressi on 601138787 Active 2016 Not Available [facility] 3 07:15:16 Increase d frequenc y of urinatio n 429214706 Completed 201608/09/2017 Dc joseph BENJA - [facility] 8 18:32:08 HIV screenin g Completed 201608/09/2017 Dc joseph BENJA - [facility] 8 18:32:12 Candidia sis of vagina 66971663 Active 2016 Not Available [facility] 3 07:15:16 Pain radiatin g to right leg 417693308 Completed 201708/09/2017 Dc joseph [place] - [facility] 9 16:59:55 Pain radiatin g to right leg 636895992 Completed 201712/16/2018 Dc [place]oseph [place] [facility] 9 16:59:55 Pain in left knee Completed 201812/16/2018 Dc [place]oseph [place] [facility] 9 16:59:48 Neck pain 43805050 Completed 201812/16/2018 Dc [place]oseph [place] [facility] 9 17:00:16 Low back pain 233618145 Active 2018 Not Available [facility] 3 07:15:16 Family history of coronary arterios clerosis 294093001 Active 2018 Not Available [facility] 3 07:15:16 Pruritus ani 62742002 Active 2018 Not Available [facility] 3 07:15:16 Group B Streptoc occus carrier 64433075971 03 Active 2018 Not Available [facility] 3 07:15:16 Genital herpes simplex 61186714 Active 2018 Not Available [facility] 3 07:15:16 Fibromya lgia 148174037 Active 2019 Not Available [facility] 3 07:15:16 Spasm 71370510 Active 2019 Generali zed Not Available [facility] 3 07:15:16 Anxiety 58575704 Active 2019 Not Available [facility] 3 07:15:16 Temporom andibula r joint disorder 71178229 Active 2019 Not Available [facility] 3 07:15:16 Disorder of maxilla 056205908 Active 2019 Not Available [facility] 3 07:15:16 Abnormal weight loss 383944344 Active 2019 Not Available [facility] 3 07:15:16 Tremor 90623901 Active 2019 Not Available [facility] 3 07:15:16 Tachycar love 4197482 Active 2019 Not Available [facility] 3 07:15:16 Abnormal thyroid hormone 210612229 Active 2019 Not Available [facility] 3 07:15:16 Thyroid nodule 924354263 Active 2019 Not Available [facility] 3 07:15:16 Otitis externa 1565203 Active 2020 Not Available [facility] 3 07:15:16 Hypergly cemia 53353588 Active 2020 Not Available [facility] 3 07:15:16 Popping sensatio n in ear 313795518 Active 2020 Not Available [facility] 3 07:15:16 History of SARS-CoV -2 28056701130 6286096 Active 2020 Not Available [facility] 3 07:15:16 Tobacco dependen ce syndrome 98699259 Active 2021 Not Available [facility] 3 07:15:16 Eruption 991352592 Active 2021 face Not Available [facility] 3 07:15:16 Pain in bilatera l lower legs 68194317154 867602 Active 2022 Adrian Bryant MD Attn: Accounting ,[address] [facility], [place], [address] , [place] - [facility] 3 13:31:27 Pain 86882752 Active 2022 right periscap ular area Adrian Bryant MD Attn: Accounting ,[address] [facility], [place], [address] , [place] [facility] 3 13:32:35 Chronic constipa tion 843120944 Active 2022 Adrian Bryant MD Attn: Accounting ,[address] [facility], [place], [address] , [place] [facility] 3 13:35:16 Ferritin level below referenc e range 738450502 Active 2022 Adrian Bryant MD Attn: Accounting ,[address] [facility], [place], [address] , [place] [facility] 3 13:40:44 Problem Notes Documentation Provider Name and Address Organization Details Recorded Time 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 Patient : 1980. Patient . 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 Patient : 1980. Patient . Liliana joseph, [facility] 10/06/2024 11:58:37 Procedures Surgical History Date Name Laterality Status Provider Name and Address Organization Details Recorded Time 022 Date of Last Mammogram completed Yulia Philippe [place] - [place] 11/22/2022 10:47:34 018 Total Abdominal Hysterectomy completed Lady Fierro PA-C Attn: Accounting,[address] [place], [address], [facility] - [place] 09/07/2017 09:01:14 017 Date of Last Pap Smear completed Yulia Philippe [place] - [place] 08/09/2017 14:20:54 014 Other completed Raffi Fang [facility] 02/23/2014 16:02:46 012 Gallbladder Surgery completed Jerri Murphy LPN [facility] 02/19/2014 08:44:34 012 Gastrointestinal Surgery completed Raffi Fang [facility] 02/23/2014 16:00:49 006 Other completed Raffi Fang [place] - [place] 02/23/2014 16:00:49 005 Ovarian Cystectomy completed Jerri Murphy LPN [facility] 02/19/2014 08:44:34 000 Tubal Ligation completed Jerri Murphy LPN [facility] 02/19/2014 08:44:34 Total hysterectomy completed Evelyn Collazo MA [facility] 09/20/2017 15:07:20 Imaging Results None recorded. Procedure Notes None recorded. Medical Equipment None Reported. Allergies Allergen ID Allergen Name Allergen Category Reaction Reaction Severity Criticality Documentation Date Start Date Code Code System Note Provider Name and Address Organization Details Recorded Time 1141 hydromorp graham medicatio n dizziness Not available Not available 02/19/2014 3423 RxNorm KULDIP Shields [place] - [place] 4 08:45:46 1142 pravastat in medicatio n myalgias (muscle pain) Not available Not available 02/19/2014 66717 RxNorm Jerri Murphy, CAN DRAGGER null, [place] - [facility] 4 08:45:46 1143 codeine medicatio n vomiting Not available Not available 02/19/2014 2670 RxNorm sever e stoma ch pain Rochelle AllenFERNANDO null, [place] - [place] 5 10:39:53 Medications Name Sig Start Date Stop Date Status Note LastModified by Organization Details LastModified Time magnesium oxide 400 (240 mg) mg tabs active Not Available Not Available Not Available insulin syringe/u- 100/1ml/31 g x 5/ 6 31g x 5/16 1 ml misc [...] x 08/15 USE ONCE A WEEK WITH BEFORE-1 2 [...] Body mass index (BMI) Body weight Systolic And Diastolic Provider Name and Address Organization Details Last Updated DateTime 11/22/2022 157.48 cm 24.1 kg/m2 33013.19 g 112/70 mm[Hg] Yulia Philippe MA [facility] 11/22/2022 10:55:32 Date Recorded Body height Body mass index (BMI) Body weight Systolic And Diastolic Provider Name and Address Organization Details Last Updated DateTime 12/02/2021 157.48 cm 23.1 kg/m2 57556.07 g 116/66 mm[Hg] Beckie Kramer MA [facility] 12/02/2021 17:00:56 Date Recorded Body height Body mass index (BMI) Body weight Systolic And Diastolic Provider Name and Address Organization Details Last Updated DateTime 01/26/2023 157.48 cm 24.1 kg/m2 04540.19 g 112/70 mm[Hg] Jillian Hdz MA [facility] 01/26/2023 15:52:16 Date Recorded Body height Body mass index (BMI) Body weight Heart rate Body temperature Oxygen saturation Oxygen saturation in Arterial blood by Pulse oximetry Systolic And Diastolic Provider Name and Address Organization Details Last Updated DateTime 3 157.48 cm 24.5 kg/m2 22453.3 8 g 99 /min 98.1 [degF] 98 % 98 % 106/76 mm[Hg] Peggy Short MA [facility] 3 12:28:37 Date Recorded Body height Body mass index (BMI) Body weight Systolic And Diastolic Provider Name and Address Organization Details Last Updated DateTime 03/15/2023 157.48 cm 24.3 kg/m2 84338.79 g 112/74 mm[Hg] Micki Santillan MA [facility] 03/15/2023 11:04:00 Social History Question Answer Notes LastModified by Organizat ion Details LastModified Time Tobacco Smoking Status Former Smoker Yulia Philippe MA null, [facility] 11/22/2022 10:53:53 Do You Have An Advance Directive? No [email or web address] Information not available 06/15/2014 Is Blood Transfusion Acceptable In An Emergency? Yes [email or web address] Information not available 06/15/2014 What Is Your Level Of Caffeine Consumption? Occasional Information not available 07/07/2020 How Much Tobacco Do You Chew? None [email or web address] Information not available 06/15/2014 What Type Of Diet Are You Following? REGULAR [email or web address] Information not available 06/15/2014 Which Illicit Or Recreational Drugs Have You Used? Patient Denies [email or web address] Information not available 11/30/2014 Education 12 Information no t available 02/23/2014 Have There Been Any Changes To Your Family Or Social Situation? No Information no t available 07/07/2020 Live Alone Or With Others? With Others Information not available 02/23/2014 What Was The Date Of Your Most Recent Tobacco Screening? 02/20/2023 Information not available 02/20/2023 How Many Children Do You Have? 2 Information not available 02/23/2014 What Is Your Current Pack Years? [email or web address] Information not available 07/07/2020 Performs Monthly Self-breast Exam? Yes [email or web address] Information no t available 06/15/2014 Do You Use Protection During Sex? No [email or web address] Information not available 06/15/2014 What Is Your Relationship Status? Single [email or web address] Information not available 06/15/2014 Do You Use Your Seat Belt Or Car Seat Routinely? Yes Information not available 07/07/2020 Seat Belts Used Routinely Yes [email or web address] Information not available 06/15/2014 Are You Sexually Active? Yes [email or web address] Information not available 06/15/2014 Do You Have Smoke And Carbon Monoxide Detectors In Your Home? Yes Information not available 07/07/2020 At What Age Did You Start Smoking Tobacco? 13 [email or web address] Information not available 06/15/2014 Are You Passively Exposed To Smoke? Yes Information no t available 02/23/2014 How Much Tobacco Do You Smoke? 1 PPD Information not available 02/23/2014 General Stress Level High [email or web address] Information not available 03/01/2017 Do You Use Sunscreen Routinely? No [email or web address] Information not available 06/15/2014 Has Tobacco Cessation Counseling Been Provided? Yes Information not available 07/07/2020 On What Date Was Tobacco Cessation Counseling Provided? 02/20/2023 Information not available 02/20/2023 How Many Years Have You Smoked Tobacco? 22 [email or web address] Information not available 06/15/2014 Sex: Unknown Functional Status Question Answer Note LastModified by Organizat ion Details LastModified Time Do you use any illicit or recreational drugs? Yes marijuana Information not available 11/22/2022 Do you or have you ever used any other forms of tobacco or nicotine? Yes Information not available 11/22/2022 What is your level of alcohol consumption? Occasional Information not available 02/23/2014 Do you or have you ever used smokeless tobacco? Never used smokeless tobacco [email or web address] Information not available 03/20/2019 Are you currently employed? No [email or web address] Information not available 06/15/2014 Are you able to care for yourself independently? Yes Information not available 02/23/2014 Do you or have you ever used e-cigarettes or vape? Current user of electronic cigarettes Information not available 11/22/2022 What is your exercise level? Occasional [email or web address] Information not available 06/15/2014 Mental Status None [...] Not available 2015 12:24:28 Maternal Aunt Malignant neoplasm of breast 61 [email or web address] Not available 2015 12:24:28 Medical History Condition Response Coronary Artery Disease N Blood Diseases N Kidney Cyst N Hyperthyroidism N Blood disorders N MRSA Y Blood Transfusion N Emphysema N Blood Clots N COPD N Depression Y Pneumonia N Peripheral Arterial Disease N Premature N Edema N TIA N Headaches/Migraines N Anxiety Disorder Y Obesity N Infertility N Polyps N Acid Reflux (GERD) Y Hematuria N Stroke N Neck Injury N Polio N Hospital Admission other than N Neurologic Disorder N Other Sleep Disorders N Rheumatoid Arthritis N Fibromyalgia N Abdominal Aortic Aneurysm Repair N Kidney Disease N Heart Conditions N Heart Disease/Heart Problems N Hospitalizations Y Brain Tumors N Acne N Eating Disorder N Skin Problems N Constipation Y Meningitis N Tuberculosis N Cerebral Palsy N Myocardial Infarction N Asthma N Substance Abuse N Peripheral Vascular Disease N Vertigo N Sleep Disorder N Cirrhosis N Pulmonary Embolism N Chicken Pox Y Flomax Use Past or Present N Hematologic Disease N Anxiety/Depression Y Thyroid Disease N Colon Cancer N Glaucoma N Lung Disease N Developmental or Behavioral Disorders N Bipolar Y Pacemaker N Diverticulitis/Diverticulosis N Anesthesia Complications N Orthopedic Problems N Orthotics N Head Injury/Concussion N Congenital Anomalies N Flores Bite N Chronic Kidney Disease N Endometriosis N Liver Disease N Dialysis N Schizophrenia N Speech Delay N Chronic Obstructive Pulmonary Disease N Parkinson's Disease N Thyroid Problems N Developmental Delay N GI Problems N Anemia N Immune System Disorder N Multiple Sclerosis N Colon Polyps N Heart Attack ([place]) N Diabetes N Cardiomyopathy N Blood Transfusions N Heart Problems/Murmur N Eye Trauma N Congestive Heart Failure (CHF) N Valvular Heart Disease N Hyperlipidemia N Double Vision N Abuse/Domestic Violence N Hepatitis B N Lupus N Epilepsy/Seizures N Reflux/GERD Y Aneurysm N Bronchitis Y Heart Disease N Hypertension N Pre-Eclampsia N Heart Failure N Other Y Gout [...] Recorded Time Tdap 07/24/2016 completed Not Available [employer] 04/19/2019 02:42:35 Past Encounters Encounter ID Performer Location Encounter Start Date Encounter Closed Date Diagnosis/Indication Diagnosis SNOMED-CT Code Diagnosis ICD10 Code Diagnosis IMO Codes Diagnosis Note [id number] Oumou Kessler NP-Sadie [facility] [address] [place] [address] 02/23/2014 15:45:36 02/23/2014 16:49:48 Tobacco user 742301373 Annular te ar of lumbar disc 900053443 Backache 008989034 Ankle pain 264371888 Chron ic Disorder of vitamin D 600131799 [id number] [facility] [address] [place] [address]19[address] 0 03/03/2014 10:40:31 03/03/2014 11:34:26 [id number] [facility]) [address] [place] [address] 22969-105 0 06/15/2014 12:05:02 06/15/2014 13:32:05 Vaginal discharge 887111690 Acute vulvitis 62634184 [id number] Fernando Casey MD [facility] [address] [place] [address] 06/25/2014 10:54:58 06/25/2014 11:45:28 Ankle pain 621428523 Chronic Annular te ar of lumbar disc 950295831 Gastroesop hageal reflux disease 821177279 Protonix has failed Prilosec and Prevacid Disorder of vitamin D 852307961 Fatigue 04955585 Periodic l imb movement disorder 140872475 R/o restless legs syndrome Tinea pedis 7614102 [id number] Eduard Mike MD [facility] [address] [place] [address] 07/30/2014 11:02:05 07/30/2014 11:39:00 Dermatitis 444692937 Told her to not use alcohol or vinegar on patch. Advised to use vasoline often and to apply a large layer at night. [id number] Eduard Mike MD [facility] [address] [place] [address] 08/17/2014 12:05:48 08/17/2014 12:51:47 Disorder of vitamin D 122966060 Will c heck vitamin D levels today - if low will do another 2 months of vitamin D Bipolar disorder 58752467 Would like to see a psychiatri st Allergic rhinitis 28648247 Advised to try Zyrtec as well. Will possibly help with atopic dermatitis as well. Dermatitis 651137292 Would like to see a dermatolog ist when she has good insurance come August. Will see if Zyrtec and fluticason e are helpful in alleviatin g what I suspect is the atopic march. [id number] MD Roman Sanz ([employer]) [address] [place] [address]41[address] 0 09/02/2014 10:05:46 09/02/2014 11:54:50 Inflammation of cervix 76239017 Bleeding to posterior canal noted Colitis 08131257 Albion tenderness noted. No cervical motion tenderness . Streptococcus carrier 369595295 [id number] MD Roman Sanz ([employer]) [address] [place] [address] 81377-595 0 09/16/2014 15:37:45 09/16/2014 17:28:07 Vaginal discharge 265744027 NORMAL [id number] MD Roman Felix (Adult Med) [address] [place] [address] 04104-317 0 10/23/2014 11:33:11 10/23/2014 12:23:17 Fatigue 08922765 Decrease in appetite 38884438 Would like healthier eating options [id number] MD Roman Sanz ([employer]) [address] [place] [address] 89274-639 0 11/30/2014 10:19:29 11/30/2014 13:38:25 On examination - vaginal discharge 095930567 Irritable bowel syndrome 48422033 [id number] MD Roman Felix (Adult Med) [address] [place] [address] 24534-312 0 01/06/2015 16:02:13 01/06/2015 22:27:12 Allergic condition 271506722 T78.40XS Cough 51354900 R05 If the cough proceeds to a sinus infection, which she states generally happens when she begins with this it turns into bronchitis and then into a sinus infection. 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 She generally lets this run its course and sometimes it does not turn into a sinus infection but would like the zpack there just in case it does Wheezing 12627367 R06.2 Audible wheezing at home - states that she feels like she cannot clear her throat and that it is tightening [id number] MD Roman Felix (Adult Med) [address] [place] [address] 90937-987 0 04/28/2015 14:07:38 04/28/2015 14:48:24 Tobacco user 417233365 Z72.0 RTC 1 month for f/u Discussed [...] of soda Disorder of vitamin D 38 0861309 E55.9 WIll check today and fill accordingl y Allergic condition 53957 1001 T78.40XS [id number] MD Roman Panchal (Adult Med) [address] [place] [address] 55592-768 0 05/27/2015 14:11:05 05/27/2015 14:45:24 Insomnia 275574668 G47.00 Will initiate doxepin 50mg qPM at bedtime RTC 3 weeks Muscle spa sm of cervical muscle of neck 2177065396 04 M62.838 Hasmukh has worked for her in the past Headache likely 2/2 muscle spasms and stress Tobacco user 170122258 Z 72.0 Quit cold turkey - last cigarette 1 week ago Depressive disorder 3548 9007 F32.9 Advised to make an appointmen t with psychiatry - she has no interest in this at this time [id number] MD Roman Panchal (Adult Med) [address] [place] [address] 21173-801 0 08/16/2015 11:59:57 08/16/2015 13:28:12 Depressive disorder 70585438 F32.9 Advised to make an appointmen t with psychiatry - she has no interest in this at this time Vitamin D deficiency 347 39951 E55.9 Will recheck vitamin d today Insomnia 478114425 G47.0 0 Continue doxepin 50mg as needed Adult heal th examination 107122765 Z00.01 Dermal mycosis 83032646 B36.9 Will initiate fluconazol e 200mg QD RTC in one month if no improvemen t with medicaiton Tobacco user 085299812 Z 72.0 Very stressed right now - states that her oldest is going to school in [place] and then her youngest is causing her issues [id number] [facility] [address] [place] [address] 03379-304 0 10/08/2015 09:29:59 10/08/2015 12:23:46 Dermal mycosis 29994684 B36.9 Will prescribe Lamasil cream Pain of sh oulder region 95596975 M25.511 Will begin with PT Onychomycosis 683415580 B35.1 Greatly improved with healthy nail bases, no need for medication at this time [id number] MD Roman Rose ([employer]) [address] [place] [address] 78647[address] 0 11/17/2015 10:29:21 11/22/2015 12:33:33 Gynecologic examination 96133250 Z01.419 Urinary tr act infectious disease 09242194 N39.0 Night sweats 53342500 R6 1 Candidiasis 40396719 B37 .9 [id number] MD Roman Panchal (Adult Med) [address] [place] [address] 32568-373 0 01/13/2016 12:32:25 01/13/2016 17:49:44 Gastroesophageal reflux disease 401052894 K21.9 Will refer back to GI for Maria Alejandra sed that her emotional stress can cause her physical sx's - if she does not get any relief from GI advised that I recommend she see psychShe has tried numerous PPI, bentyl, Zantac to no relief Hyperlipidemia 47719945 E78.5 Will recheck today Vitamin D deficiency 347 52499 E55.9 Will recheck vitamin d today [id number] MD Roman Sanz ([employer]) [address] [place] [address] 38595-510 0 02/03/2016 14:49:45 02/03/2016 22:07:04 Dysmenorrhea 476511287 N94.6 Dysfunctio nal uterine bleeding 03360655 N93.8 Candidiasis of vagina 72 837197 B37.3 Chronic pe lvic pain of female 889868995 R10.2 Irritable bowel syndrome 61713198 K58.9 Bipolar disorder 4354787 4 F31.9 [id number] MD Roman Panchal (Peds) [address] [place] [address] 10686-147 0 07/24/2016 16:26:11 07/25/2016 13:35:32 Increased frequency of urination 315864393 R35.0 UA negative - advised to drink plenty of waterStay away from alcohol and any sugary drinks Active or passive immunization 121883757 Z23 HIV screening 726834113 Z11.4 Mild depression 58171425 3 F32.0 having some issues with her youngest daughter and they are going to family counseling Does not want to see psych at this time Candidiasis of vagina 72 560203 B37.3 Per patient - will treat Tobacco user 390863785 Z 72.0 Very stressed right now - states that her oldest is going to school in [place] and then her youngest is causing her issues Muscle spa sm of cervical muscle of neck 6381123849 04 M62.838 Hasmukh has worked for her in the past Headache likely 2/2 muscle spasms and stress [id number] MD Roman Panchal (Adult Med) [address] [place] [address] 75608-905 0 09/12/2016 15:13:36 09/13/2016 10:16:59 Backache 282416580 M54.9 Will refer to PT - advised to increase exercise, get in the water, and keep moving Insomnia 872659046 G47.0 0 d/t her possibly being manic at this time, discussed with her that she should re-establi sh with psych - she agreed with plan and will find psych Spasm of back muscles 20 9733887 M62.830 Will refer to PT - advised to increase exercise, get in the water, and keep moving Bipolar disorder 7265929 4 F31.9 Schedule an appointmen t with psych - either here or advised to contact her insurance to see if she could get into someone fast Tobacco user 498296525 Z 72.0 Advised to quit Gastroesop hageal reflux disease 047887779 K21.9 Advised to f/u with GI [id number] MD Roman Sanz ([employer]) [address] [place] [address] 01097-855 0 03/01/2017 16:33:47 03/02/2017 10:17:20 Gynecologic examination 70895651 Z01.411 Irregular intermenstrual bleeding 99538451 N92.1 [id number] MD Roman Mora (Adult Med) [address] [place] [address] 12668-714 0 05/14/2017 14:17:19 05/14/2017 16:38:16 Pain radiating to right leg 910620847 M79.604 lower back pain with radiation to posterior right leg - will begin with MRI at this time d/t chronicity and failed PT Hyperlipidemia 85528226 E78.5 Will recheck today Vitamin D deficiency 347 16773 E55.9 Will recheck vitamin d today [id number] MD Roman Sanz ([employer]) [address] [place] [address] 37548-680 0 08/09/2017 13:50:04 08/09/2017 15:25:57 History of endometrial ablation 4313706388 30712 Z98.890 History of female sterilization 436971570 Z92.0 Bipolar disorder 3326995 4 F31.9 Abnormal u terine bleeding 1302721973 9100 N93.9 failed medical management , failed minor surgical management , prior sterilizat ion. Desires definitive surgical therapy. Bladder mu scle dysfunction - overactive 491058120 N32.81 Tobacco user 023280976 Z 72.0 [id number] MD Roman Sanz ([employer]) [address] [place] [address] 22619-155 0 09/20/2017 14:54:35 09/20/2017 15:57:34 Postoperative visit 390019480 Z09 Pathology report showed adenomyosi s and hemorrhagi c ovarian cyst.Okay to go swimming. Advised no intercours e for 6 weeks. Bipolar disorder 3727236 4 F31.9 Tobacco user 835420652 Z 72.0 Depressive disorder 3548 9007 F32.9 Constipation 91259216 K5 9.00 Bladder mu scle dysfunction - overactive 121044747 N32.81 [id number] MD Roman Sanz ([employer]) [address] [place] [address] 00818-593 0 10/08/2017 15:46:14 10/09/2017 15:39:57 Postoperative visit 146313837 Z09 Pathology report showed adenomyosi s and hemorrhagi c ovarian cyst.Okay to go swimming. Advised no intercours e for 6 weeks. Constipation 04680928 K5 9.00 Bipolar disorder 3656300 4 F31.9 Tobacco user 382682337 Z 72.0 Depressive disorder 3548 9007 F32.9 [id number] MD Roman Sanz ([employer]) [address] [place] [address] 82139-606 0 11/26/2017 15:59:20 11/26/2017 16:59:37 Exposure to sexually transmissible disorder 864479351 Z20.2 Postsurgic al menopause 005228590 E89.41 Vaginal discharge 749946 006 N89.8 NORMAL [id number] MD Roman Sanz ([employer]) [address] [place] [address] 54415-380 0 12/31/2017 11:08:22 01/03/2018 11:47:32 Perimenopausal state 0196406758 19935 Z78.0 Inflammati on of vestibule of vulva 23943220 N94.810 Irritable bowel syndrome 95070387 K58.9 Exposure t o sexually transmissible disorder 803936912 Z20.2 [id number] MD Roman Tavera (Adult Med) [address] [place] [address] 77464-264 0 04/05/2018 14:00:15 04/08/2018 10:05:11 Chronic low back pain 535457388 M54.5 lower back pain with radiation to posterior right leg - will begin with MRI at this time d/t chronicity and failed PT Tobacco user 651613516 Z 72.0 advised to quit, patient not ready yet. Disorder of vitamin D 38 0270003 E56.9 [id number] MD Roman Tavera (Adult Med) [address] [place] [address] 71792-410 0 05/17/2018 15:24:51 05/20/2018 09:22:06 Tobacco user 206037347 Z72.0 advised to quit, patient three weeks smoke free. Acute otitis media 10339 03 H66.92 Neck pain 11582496 M54.2 [id number] MD Roman Yin (Adult Med) [address] [place] [address] 50418-270 0 06/27/2018 11:58:42 06/27/2018 12:56:56 Vitamin D deficiency 71112977 E55.9 Pain in left knee 095420 4721 94406 M25.562 Continue rest, ice. Apply heat in one Low back pain 197315321 M54.5 Neck pain 85909383 M54.2 [id number] MD Roman Sanz ([employer]) [address] [place] [address] 90442-957 0 08/05/2018 14:56:10 08/06/2018 14:19:36 History of total hysterectomy 185256838 Z90.710 On ERT 1mg estradiol only. has not used in over 7 days. Bipolar disorder 7395659 4 F31.9 Fibrocysti c disease of breast 45743531 N60.19 Paraverteb ral muscle spasm 16497337 M62.830 Polycystic ovaries 43458 008 E28.2 Low back pain 956144685 M54.5 [id number] MD Roman Yin (Adult Med) [address] [place] [address] 82137-206 0 09/26/2018 16:30:01 09/27/2018 11:42:28 Family history of coronary arteriosclerosis 398531437 Z82.49 Tobacco user 228993275 Z 72.0 Hyperlipidemia 05281826 E78.5 Pain in left knee 192534 2701 44211 M25.562 Continue rest, ice. Apply heat in one Gastroesop hageal reflux disease 825226650 K21.9 Vitamin D deficiency 347 60685 E55.9 [id number] MD Roman Sanz ([employer]) [address] [place] [address] 30702-927 0 12/16/2018 16:07:58 12/17/2018 12:33:17 Postsurgical menopause 753612807 E89.41 History of total hysterectomy 901668572 Z90.710 Dyspareunia 00578398 N94 .10 Encouraged patient to try lubricatio n ([place] liquid, Astroglide ). [id number] MD Roman Sanz ([employer]) [address] [place] [address] 72976-189 0 12/31/2018 13:56:00 01/01/2019 12:35:17 Pruritus ani 71115520 L29.0 Exposure t o sexually transmissible disorder 752722388 Z20.2 Hemorrhoids 39305523 K64 .9 History of total hysterectomy 758768827 Z90.338 [id number] MD Roman Sanz ([employer]) [address] [place] [address] 40803-674 0 03/19/2019 14:52:23 03/20/2019 12:23:36 Exposure to sexually transmissible disorder 922875899 Z20.2 Bacterial vaginosis 4197 75434 N76.0 Tobacco user 362313962 Z 72.0 History of total hysterectomy 518316448 Z90.173 [id number] MD Roman Sanz ([employer]) [address] [place] [address] 39482-654 0 05/12/2019 10:16:50 05/13/2019 11:53:58 Exposure to sexually transmissible disorder 046264582 Z20.2 Fibromyalgia 619034584 M 79.7 Screening mammography 24 871492 Z12.31 Bipolar disorder 1396184 4 F31.9 [id number] MD Roman Sanz ([employer]) [address] [place] [address] 40374-232 0 06/25/2019 09:11:39 06/25/2019 18:05:30 [id number] MD Roman Sanz ([employer]) [address] [place] [address] 02189-783 0 07/09/2019 13:44:48 07/10/2019 09:08:12 Vulvitis 72461182 N76.2 used boric acid doucheiatr ogenic Fibromyalgia 376444547 M 79.7 [id number] MD Roman Yin (Adult Med) [address] [place] [address] 19050-295 0 08/18/2019 15:35:47 08/19/2019 14:20:31 Spasm 92589837 R25.2 Fibromyalgia 703006914 M 79.7 Depressive disorder 3548 9007 F32.9 Anxiety 65637475 F41.9 [id number] MD Roman Yin (Adult Med) [address] [place] [address] 18138-384 0 01/19/2020 08:50:40 01/20/2020 13:03:04 Disorder of maxilla 122788981 K08.20 F/U with dentist Temporoman dibular joint disorder 74610766 M26.609 Consider use of other nsaid. Get other dental opinion [id number] MD Roman Yin (Adult Med) [address] [place] [address] 03135-789 0 03/01/2020 09:43:53 03/02/2020 09:30:55 Abnormal weight loss 596859688 R63.4 Abnormal t hyroid hormone 386083705 R94.6 Tachycardia 9493990 R00. 0 Tremor 11192813 R25.1 [id number] MD Roman Sanz ([employer]) [address] [place] [address] 95479-523 0 07/07/2020 08:14:08 07/13/2020 06:38:17 Screening mammography 87499131 Z12.31 [id number] MD Roman Yin (Adult Med) [address] [place] [address] 68426-783 0 09/29/2020 12:49:35 09/30/2020 07:38:01 Otitis externa 9575336 H60.92 [id number] NELI SIERRA ([employer]) [address] [place] [address] 78109-314 0 10/13/2020 14:55:31 10/28/2020 12:34:54 Mass of right breast 7760650024 7589845 N63.10 -Lump in R breast x1 month, doubled in size in 2 days now with overlying erythema-L ast mammogram was 07/2020, unremarkab le except for small cysts in b/l breasts-Fa hallie hx of breast cancer in maternal aunt-Hx of dense breast tissue and benign cysts-Orde r for diagnostic mammogram and breast US given today Skin lesion 58572253 L98 .9 -Small 0.5cm macule on L breast with irregular borders-De rm referral sent today for skin check [id number] MD Roman Yin (Adult Med) [address] [place] [address] 61484-305 0 01/05/2021 15:27:48 01/11/2021 10:36:35 Gastroesophageal reflux disease 801406351 K21.9 Hyperlipidemia 41806234 E78.5 Irritable bowel syndrome 00261553 K58.9 Abnormal t hyroid hormone 287085010 R94.6 Hyperglycemia 04532962 R 73.9 Vitamin D deficiency 347 72203 E55.9 Popping se nsation in ear 492851753 H93.299 Pt to start cetirizine [id number] KEDAR BURTON CK, DO Roman ([employer]) [address] [place] [address] 47121-343 0 03/03/2021 09:48:33 03/11/2021 14:16:05 Venereal disease screening 355396254 Z11.3 Z72.89 Vaginal discharge 663891 006 N89.8 Patient concerned for candidiasi s. - no evidence of infection. Common use of wet-wipes. Denies intravagin al cleaning. Report history of Chronic BV. Also reports swelling and some pelvic pressure. Previously seen by PT and Urogynecol ogist. Mild anterior prolapse today. [facility] up to date: 01/2017 = NILM, HPV neg. next pap 01/2022. [id number] MD Roman Yin (Adult Med) [address] [place] [address] [id number] 0 03/15/2021 11:16:30 03/16/2021 13:35:31 History of SARS-CoV-2 [id number] Z86.16 Will order REGEN-COV [id number] MD Roman Yin (Adult Med) [address] [place] [address] [phone] 0 03/22/2021 10:14:04 03/22/2021 10:24:34 [id number] MD Roman Yin (Adult Med) [address] [place] [address] [id number] 0 04/12/2021 15:22:46 04/12/2021 16:09:56 [id number] MD Roman Yin (Adult Med) [address] [place] [address] [id number] 0 04/12/2021 16:57:19 04/15/2021 11:41:23 Tobacco dependence syndrome [id number] F17.200 Discussed choosing specific start date after beginning wellbutrin SR [id number] MD Roman Yin (Adult Med) [address] [place] [address] [phone] 0 05/16/2021 15:50:21 05/17/2021 09:23:08 [id number] MD Roman Yin (Adult Med) [address] [place] [address] [id number] 0 08/11/2021 16:22:04 08/12/2021 11:21:58 Onychomycosis [id number] B35.1 [id number] NELI SIERRA (WASTE DISPOSAL PLANT OPERATOR) [address] [place] [address] [phone] 0 09/28/2021 15:08:36 09/30/2021 11:05:21 Acute vaginitis [id number] N76.0 Will treat for vaginal candidiasi s due to history with Diflucan 150 mg. Nuswab completed today. Will treat other infections if indicated per results. RTC if symptoms persist. [id number] NELI SIERRA (WASTE DISPOSAL PLANT OPERATOR) [address] [place] [address] [id number] 0 12/02/2021 16:30:35 12/15/2021 09:50:02 Gynecologic examination 79916863 Z01.419 Pelvic exam unremarkab le.-Cervic al cancer screening: Hysterecto [id number].-Di et/exercis e: Counseled regarding importance of physical activity, healthy diet and appropriat e calcium / vitamin D intake.- Return to clinic in 1 year Venereal d isease screening [id number] Z11.3 Pt reporting intermitte nt vaginal swelling and dyspareuni a. PE unremarkab le. Follow up nuswab to rule out infection. Screening for malignant neoplasm of breast 240948782 Z12.31 Last breast imaging Oct 2020 and May 2021, BIRADS 2 with benign appearing cysts. Annual screening mammogram order provided. [id number] NELI SIERRA (WASTE DISPOSAL PLANT OPERATOR) [address] [place] [address] [phone] 0 11/22/2022 10:45:49 11/29/2022 09:21:20 Multiple cysts of breast 064085829 N60.11 N60.12 Last imaging Dec 2021 with stable simple cysts in bilateral breasts, including stable right midline 11mm lesion at area of concern. New pea-sized lesion palpated on exam today in R breast, 6 o'clock. Will follow up with diagnostic imaging. Referral placed to breast surgeon to discuss management options. Cyst of left ovary [id number] abd/pelvis September 2022 with two left adnexal lesions measuring up to 37mm likely representi ng dominant follicles/ cysts. Will follow up with TV[facility] to further assess. [id number] NELI SIERRA (WASTE DISPOSAL PLANT OPERATOR) [address] [place] [address] [id number] 0 01/26/2023 15:30:23 01/31/2023 13:01:45 Cyst of left ovary [id number] N83.202 Pelvic abscess [id number] K65.1 Admitted to [facility] from 01/21-01/01 3 for severe LLQ abdominal pain found to be 4cm pelvic abscess on CT. s/p IV abx and compliant with PO Amoxicilli n. Persistent but improved LLQ pain. No fever, chills, peritoneal signs, and bruising. No hospital records on file, will obtain.-Or brenda TVUS to monitor-Fi [place] antibiotic course-Dis cussed ER precaution s for sudden worsening pain [id number] MD Roman Yin (Adult Med) [address] [place] [address] [id number] 0 02/20/2023 12:03:18 02/27/2023 11:13:31 Pain in bilateral lower legs [id number] M79.661 M79.662 Will order doppler. Pt will f/u with her cardiologi st Pain 43082994 R52 Chronic constipation 236 606453 K59.09 F/u GI Ferritin l evel below reference range 301173497 R77.8 [id number] NELI SIERRA (WASTE DISPOSAL PLANT OPERATOR) [address] [place] [address] [phone] 0 03/15/2023 10:50:42 04/03/2023 16:47:42 Hot sweats 101324208 R61 Pt reports night sweats and hot flashes x2 weeks. Labs ordered to check hormone levels. Will f/u with patient. Increased frequency of urination 388530776 R35.0 Increased frequency of urination. Denies dysuria or hematuria. Trace blood on UA today, will send urine for culture and will check A1c. Health Concerns Section Related Observation LastModified by Organization Detai ls LastModified Time None Recorded Concern Status LastModified by Organization Details LastModified Time None Recorded Advance Directives Directive N: Payers Insurance Date Sequence Insurance Name Policy Number Policy Escamilla Covered Member ID Escamilla Member ID Guarantor Name 04/10/2023 1 [facility] PLANNING AIDE [facility] - OPEN ACCESS III (PPO) Samantha Rucker [id number] Samantha Rucker 01/26/2023 1 [facility] - DOS PRIOR TO 2020 (MEDICAID REPLACEMENT - HMO) Samantha Hollis [id number] Samantha Rucker 02/03/2016 SLIDING FEE SCHEDULE - DISCOUNT Samantha Rucker 01/26/2023 1 [employer] - DOS PRIOR TO 20 - [facility] BENEFITS PLAN Samantha Hollis [id number] Samantha Rucker 01/26/2023 2 [place] [employer] PUBLIC A[employer] Samantha Hollis [id number] Samantha Rucker Notes Date Note Type Note Provider Name and Address Organization Details Recorded Time 12/02/2021 text/html Samantha Rucker is a 41 year-old female with extensive [...] psychiatric illnesses. NELI SIERRA Attn: Accounting[address] [place], [address], [facility] - [facility] 12/14/2021 15:54:17 11/22/2022 text/html ROS as noted in the HPI 42yo F with h/o hysterectomy, ovarian cystectomy, [...] to cyst. NELI SIERRA Attn: [address]ing[address] [facility], [place], [address], [place] - [facility] 11/23/2022 14:33:56 01/26/2023 text/html ROS as noted in the HPI 42 yo F with history of IBS, L ovarian cyst presents to the clinic for a hospital follow up. She was admitted at [facility] from 01/21-01/22 for LLQ abdominal pain found [...] and lesions. NELI SIERRA Attn: Accounting[address] [facility], [place], [address], [place] [facility] 01/31/2023 07:06:53 02/20/2023 text/html Pt here because of daily leg pain for the past three months. She has had leg pain in past but of lesser severity. She did see pain management about one month ago. She saw chiroptacter about two months ago but is unable to continue because of cost. Pt had also been seeing supervising architect for problem associated with low ferritin.Pt was prescribed iron but is unable to tolerate oral iron. Pt has been working with GI specialist for chronic constipation. Adrian Bryant MD Attn: [address]ing[address] [facility], [place], [address], [place] [facility] 02/20/2023 13:47:52 03/15/2023 text/html ROS as noted in the HPI Saamntha is a 42 y/o F with h/o hysterectomy here for a follow up. She reports going to the ER at [facility] for abdominal pain in late December and treated for pelvic abscess. She had follow up CT recently and is here to discuss the results. She has abdominal pain that she states is due to gastritis. She is not taking any medications other than occasional famotidine. She reports hot flashes [id number]. She reports waking up in the middle of the night recently with anxiety. Also reporting increased frequency of urination. Denies dysuria, hematuria, fevers, chills, n/v. NELI SIERRA Attn: Accounting[address] [facility], [place], [address], [facility] 03/30/2023 17:31:48 OBGyn Episode Ob Episode Information Episode Created Date Number of Fetuses Patient Bloodtype Patient rh Status Prepregnancy Weight lbs Domestic Partner Domestic Partner Phone Father Name Staff Nurse Anesthetist Status 06/16/19 15 1 CLOSED Fetus Data First Name Last Name Admitted to NICU Weight (g) Sex Living Outcome Pediatric Complications Fetus ID Race Codes Race Delivery Type 3601.52 048 F Full Term [id number] Vaginal Benjie Calculation Initial Benjie Date Initial [...] Complications Tubal Sterilization Discharge Date Comments 0 [facility] idural 41 [facility] Discharge Information Feeding Method Contraceptive Method Maternal HG B and HCT Levels Ob Episode Information Episode Created Date Number of Fetuses Patient Bloodtype Patient rh Status Prepregnancy Weight lbs Domestic Partner Domestic Partner Phone Father Name Staff Nurse Anesthetist Status 06/16/19 15 1 CLOSED Fetus Data First Name Last Name Admitted to NICU Weight (g) Sex Living Outcome Pediatric Complications Fetus ID Race Codes Race Delivery Type 2921.13 248 F Full Term [id number] Vaginal Benjie Calculation Initial Benjie Date Initial [...] Complications Tubal Sterilization Discharge Date Comments 8 [facility] 40 [facility] Discharge Information Feeding Method Contraceptive Method Maternal HG B and HCT Levels
== END 2025-02-04 15:03 | disposition home or self-care (01) ==
LOC: ANHLAB 15:03
PROVIDERS: PCP Student in an Organized Health Care Education/Training Program; Visit Provider Internal Medicine Hematology & Oncology
DX: D64.9 Anemia, unspecified (principal)
CPT/HCPCS: 36415; 82306; 82607; 84238

== ENCOUNTER 2025-02-17 13:51 | Emergency (ER) | payer OTHER, SELFPAY ==
[2025-02-17 14:09] VITALS: BP 113/97; PULSE 105; RESP 18; TEMP 36.5; O2SAT 100
--- NOTE | 2025-02-17 16:39 | ED_ITS ---
HPI - Extremity Problem General Chief complaint: Extremity Problem,Nontraumatic Stated complaint: bilateral leg pain Time Seen by Provider: 02/17/25 16:13 Source: patient Mode of arrival: ambulatory Limitations: no limitations History of Present Illness HPI Narrative: This is a 44-year-old female with history of iron deficiency anemia, GERD IBS who presents to the ED for bilateral leg pain. Patient states for the past 4 days, she has been having bilateral leg cramping sensation that is worse at rest and at night to the point that she has not been able to sleep. She has not tried anything for this. She is a smoker and she was concerned she was having poor circulation. Denies fevers, chills, chest pain, new shortness of breath. Related Data Home Medications ?Medication ?Instructions ?Recorded ?Confirmed ?Last Taken ?Type pantoprazole 40 mg granules 40 mg PO BID 07/15/2405/27 Unknown History delayed-release for susp in packet (Protonix) Allergies Allergy/AdvReac Type Severity Reaction Status Date / Time hydromorphone (From Dilaudid) Allergy Mild Palpitation Verified 01/19/25 10:03 s pravastatin Allergy Mild Palpitation Verified 01/19/25 10:03 s codeine AdvReac Mild Nausea Verified 01/19/25 10:03 Review of Systems Review of Systems: Gen.: Denies fevers or chills Eyes: Denies eye pain or visual change ENT: Denies congestion Respiratory: Denies shortness of breath or cough CV: Denies chest pain or palpitations GI: Denies abdominal pain nausea, emesis or diarrhea denies burning, urgency, frequency or hematuria Musculoskeletal: As per HPI Neuro: Denies numbness, tingling, weakness or focal weakness Skin: Denies rash Except as documented, all other systems reviewed and negative [facility] Past Medical History Medical History Fibromyalgia Anxiety SELINA (obstructive sleep apnea) IBS (irritable bowel syndrome) GERD (gastroesophageal reflux disease) Asthma Surgical History Surgical History History of left oophorectomy History of partial hysterectomy Family History Family History Other Depression Anxiety Heart disease Grandparent Depression Anxiety Heart disease Grandparent Cerebrovascular accident Social History Social History Smoking packs per day: 1 Smoking cigarettes per day: 20.0 Years smoked: 22 Smoking pack-years: 22.00 Smoking status: Current every day smoker Tobacco type: cigarettes Second hand tobacco smoke exposure: No Alcohol intake: never Substance use: never Substance use type: does not use Do You Feel Safe in your Home?: Yes Lack of Transportation: No Lack of Food: Never True Current Housing: I Have Housing Concerned About Future Housing: No Difficulty Paying Gas/Electric Bills: No Difficulty Paying for Meds: No Currently Unemployed: No Education: High School Diploma/GED Difficulty w/ Childcare or Family Care: No Living arrangements: with family Spiritual care concerns: No Exam Narrative: APPEARANCE: No acute distress, nontoxic, resting in bed EYES: EOMI HEENT: Normocephalic, atraumatic, OMM RESPIRATORY: No respiratory distress Clear to auscultation bilaterally with no rhonchi wheezing or rales. CARDIOVASCULAR: Regular rate and rhythm without murmurs rubs or gallops. ABDOMINAL: Soft, nontender, nondistended, no rebound or guarding MUSCULOSKELETAl: Moves all extremities. No clubbing, cyanosis or edema. NEURO: Awake and alert. Following commands, speech normal, no focal deficits SKIN:: Warm, dry. No rashes lesions or abrasions PSYCHIATRIC: Normal affect/mood, Course Vital Signs Vital signs: Vital Signs Temperature 97.7 F 02/17/25 14:09 Pulse Rate 105 H 02/17/25 14:09 Respiratory Rate 18 02/17/25 14:09 Blood Pressure 113/97 H 02/17/25 14:09 Pulse Oximetry 100 02/17/25 14:09 Temperature 97.7 F 02/17/25 14:09 Pulse Rate 105 H 02/17/25 14:09 Respiratory Rate 18 02/17/25 14:09 Blood Pressure 113/97 H 02/17/25 14:09 Pulse Oximetry 100 02/17/25 14:09 MDM - Extremity (Nontraumatic) MDM Narrative Medical decision making narrative: 44-year-old female Presenting for bilateral calf pain. On initial evaluation patient was in no acute distress afebrile, hemodynamic stable. Differentials include but are not limited to: Iron deficiency anemia, restless legs syndrome, low suspicion for DVT, deconditioning, muscle strain, Notable exam findings: No significant swelling noted to the bilateral lower extremities, 2+ PT and DP pulses bilaterally. Patient's history is most consistent with restless legs syndrome especially given her iron deficiency anemia. She was given a dose of Toradol here in the ED to assist with some of her pain now. She was also given a prescription for ropinirole. She was advised follow-up with her PCP in the next week for re-eval uation. Patient was agreeable to this plan. Given strict return precautions. Discharge Plan Discharge Clinical Impression: Restless leg syndrome Patient Disposition: Home Condition: Stable Instructions: Antibiotic Form, Restless Legs Syndrome (ED) Additional Instructions: Your symptoms are most consistent with restless leg syndrome. This may be due to your iron deficiency anemia. Continue to follow with your PCP regarding the anemia. Take ropinirole as prescribed. Return to the ED for any new or worsening symptoms. Patient Language: Mauritian Prescriptions: New ropinirole 0.25 mg tablet 0.25 mg PO HS Qty: 7 0RF No Action estradiol [Vivelle-Dot] 0.05 mg/24 hr patch semiweekly 1 patch transdermal 2XW Qty: 8 0RF Rx Instructions: apply 1 patch for 3 days alternating with 1 patch for 4 days each week for 3 wks per 4-wk cycle famotidine 40 mg tablet 40 mg PO BID Qty: 1 0RF pantoprazole [Protonix] [address] for susp in packet 40 mg PO BID Praluent Pen 150 mg/mL pen injector 150 mg subcut Q14D Qty: 2 0RF albuterol sulfate 90 mcg/actuation HFA aerosol inhaler 2 puff INHALATION PRN PRN (Reason: Shortness Of Breath Or Wheezing) Qty: 6.7 0RF fluticasone propionate [Flonase Allergy Relief] 50 mcg/actuation spray,suspension 1 spray intranasal BID Qty: 16 0RF Rx Instructions: administer into each nostril loratadine [Claritin] 10 mg tablet 10 mg PO DAILY PRN (Reason: allergic symptoms) Qty: 30 0RF nicotine 21-14-7 mg/24 hr patch, TD daily, sequential See Rx Instructions transdermal .COMPLEX Qty: 56 0RF Rx Instructions: apply 1-21 mg NICOTINE PATCH daily for 28 days; follow with 1-14 mg PATCH daily for 14 days, then 1-7mg PATCH daily for 14 days transdermal Follow-up/Referrals: Shelly Navarro PA-C [Primary Care Provider, [facility]]
[2025-02-17] MEDS: KETOROLAC 30 MG/ML VIAL (*BKC) IM (16:53)
--- OUTSIDE RECORDS SUMMARY | 2025-02-18 00:13 | XMS_ITS | Clinical Summary ---
Author Organization [facility] Address [address] [place] [address] Care Team Providers Care Merchandise Supervisor Name Role Phone Adrian Bryant MD Primary [...] patient's age to complete this topic Insurance [employer] OPEN ACCESS [facility] Care Teams Merchandise Supervisor Relationship Specialty Start Date End Date Adrian Bryant MD PCP - General INTERNAL MEDICINE 01/11/22
--- OUTSIDE RECORDS SUMMARY | 2025-02-18 00:13 | XMS_ITS | Encounter Summary ---
Author Organization [facility] JULIEN Alberto [facility] Address [address] [place] [address] Care Team Providers Care Box Lidder Name Role Phone Unavailable Primary Care Provider Unavailabl e Encounter Details Date Type Department Care Team (Late st Contact Info) Description 02/13/2025 Orders Only [facility] Oncology and Hematology - [place] [address] [facility] [address] [place] [address] David Baptiste MD [address] [facility] [address] [place] [address] Social History Tobacco Use Types Packs/Day Years [...] on file documented as of this encounter Procedures Procedure Name Priority Date/Time Associated Diagnosis Comments METHYLMALONIC ACID Routine 02/04/2025 7:29 AM BULB PLANTER documented in this encounter Results * METHYLMALONIC ACID (02/04/2025 7:29 AM BULB PLANTER) Blood David Baptiste MD CHEMISTRY ORDERABLES Final Resu lt documented in this encounter Visit Diagnoses Not on filedocumented in this encounter
--- OUTSIDE RECORDS SUMMARY | 2025-02-18 00:13 | XMS_ITS | Clinical Summary ---
Author Organization [facility] Address [address] [place] [address] Phone Care Team Providers Care Information Officer Name Role Phone Unavailable Primary Care [...] Encounters Date Type Department Care Team Description 02/13/2025 Orders Only [facility] Oncology and Hematology - [place] [address] [place] [address] David Baptiste MD 02/10/2025 3:00 PM DIRECTOR OF IT OPERATIONS Office Visit [facility] Oncology and Hematology - [place] [address] [place] [address] Jennifer Melendez MD Chronic anemia (Primary Dx); Low ferritin 02/10/2025 Orders Only [facility] Oncology and Hematology - [place] [address] [place] [address] David Baptiste MD 02/06/2025 Orders Only [facility] Oncology and Hematology [facility] [address] [place] [address] David Baptiste MD 02/04/2025 2:30 PM DIRECTOR OF IT OPERATIONS Office Visit [facility] Oncology and Hematology [facility] [address] [place] [address] David Baptiste MD Chronic anemia (Primary Dx) 02/04/2025 External Device Data STL ABSTRACTION Provider, Abstract 02/03/2025 External Device Data STL ABSTRACTION Provider, Abstract 02/03/2025 External Device Data STL ABSTRACTION Provider, Abstract 02/02/2025 Telephone [facility] Oncology and Hematology [facility] [address] [place] [address] David Baptiste MD labs for appt from [...] Comments Blood Pressure 117/85 02/04/2025 2:26 PM DIRECTOR OF IT OPERATIONS Pulse 93 02/04/2025 2:26 PM DIRECTOR OF IT OPERATIONS Temperature 37 C (98.6 F) 02/04/2025 2:26 PM DIRECTOR OF IT OPERATIONS Respiratory Rate 16 02/04/2025 2:26 PM DIRECTOR OF IT OPERATIONS Oxygen Saturation 96% 02/04/2025 2:26 PM DIRECTOR OF IT OPERATIONS Inhaled Oxygen Concentration - - Weight 56.1 kg (123 lb 9.6 oz) 02/04/2025 2:26 P M DIRECTOR OF IT OPERATIONS Height 157.5 cm (5' 2) 03/20/2023 2:43 PM DIRECTOR OF IT OPERATIONS Body Mass Index 22.61 03/20/2023 2:43 PM DIRECTOR OF IT OPERATIONS Plan of Treatment Health Maintenance Due Date Last Done Comments HEPATITIS B VACCINES (1 of 3 - 19+ 3-dose series) 1997 COLORECTAL SCREENING 11/10/2023 Colorectal Cancer Screening 11/10/2023 FIT-DNA Q 3 years 11/10/2023 FIT/FOBT Q 1 year 11/10/2023 Flex Sig/CT Colonography Q 5 years 11/10/2023 BREAST CANCER SCREENING 04/10/2024 04/10/19, 10/26/2020 INFLUENZA VACCINE (#1) 2024 DTAP/TDAP/TD VACCINES (2 - T d or Tdap) 07/24/2026 07/24/2016 HPV VACCINES Aged Out No longer eligi ble based on patient's age to complete this topic Procedures Procedure Name Priority Date/Time Associated Diagnosis Comments CHG SOLUBLE TRANSFERRIN RECEPTOR Routine 02/04/2025 2:25 PM DIRECTOR OF IT OPERATIONS VITAMIN B12 LEVEL Routine 02/04/2025 1:3 0 PM DIRECTOR OF IT OPERATIONS VITAMIN D 25 HYDROXY Routine 02/04/2025 1:26 PM DIRECTOR OF IT OPERATIONS METHYLMALONIC ACID Routine 02/04/2025 7: 29 AM DIRECTOR OF IT OPERATIONS IRON, TIBC, AND PERCENT SATURATION Routine 02/03/2025 7:58 AM DIRECTOR OF IT OPERATIONS CBC WITH AUTODIFFERENTIAL Routine 2024 7:41 AM DIRECTOR OF IT OPERATIONS MAMMO BILAT DIAGNOSTIC Routine 2:28 PM DIRECTOR OF IT OPERATIONS from Last 3 Months or Most Recently Relevant to Health Maintenance Results * CHG SOLUBLE TRANSFERRIN RECEPTOR (02/04/2025 2:25 PM DIRECTOR OF IT OPERATIONS) us David Baptiste MD [facility] - LABORATORY Final Result * VITAMIN B12 LEVEL (02/04/2025 1:30 PM DIRECTOR OF IT OPERATIONS) Blood us David Baptiste MD CHEMISTRY ORDERABLES Final Resu lt * VITAMIN D 25 HYDROXY (02/04/2025 1:26 PM DIRECTOR OF IT OPERATIONS) Blood us David Baptiste MD CHEMISTRY ORDERABLES Final Resu lt * METHYLMALONIC ACID (02/04/2025 7:29 AM DIRECTOR OF IT OPERATIONS) Blood us David Baptiste MD CHEMISTRY ORDERABLES Final Resu lt * IRON, TIBC, AND PERCENT SATURATION (02/03/2025 7:58 AM DIRECTOR OF IT OPERATIONS) Blood Result [facility] us David Baptiste MD CHEMISTRY ORDERABLES Final Resu lt * CBC WITH AUTODIFFERENTIAL (02/03/2025 7:41 AM DIRECTOR OF IT OPERATIONS) Blood us David Baptiste MD HEMATOLOGY ORDERABLES Final Res ult * MAMMO BILAT DIAGNOSTIC (04/10/2023 2:28 PM DIRECTOR OF IT OPERATIONS) Anatomical Region Laterality Modality Breast Bilateral Mammography us David Baptiste MD MAMMO ORDERABLES Final Result from Last 3 Months or Most Recently Relevant to Health Maintenance Insurance [employer] [facility] Address[facility] [id number] [place] [address] [facility] OPEN ACCESS
--- OUTSIDE RECORDS SUMMARY | 2025-02-18 00:14 | XMS_ITS | Clinical Summary ---
Author Organization [facility] Address [address] [place] [address] Care Team Providers Care Fire Protection Equipment Technician Name Role Phone Adrian Bryant MD Primary Care Provider Source Comments [facility] Affiliates and Associated Physician Practices is amultiple site organization consisting of ambulatory clinics and hospital sitesin [place], [place], [place] and [place]. This disclosure is being madepursuant to the Care Everywhere program and may not contain all information available regarding this patient. Last updated 17.[facility] Allergies Active Allergy Reactions Criticality Noted Date [...] on file Legal Sex Female 5:48 AM CREDIT AUTHORIZER Gender Identity Not on file Sexual Orientation [...] patient's age to complete this topic Insurance [employer] * Guarantor: SAMANTHA RUCKER Account Type Relation to Patient Date of Phone Billing Address Personal/Family [address] [place], [place] [id number] [employer] SELF PAY NO INSURANCE Member Subscriber Plan / Payer (Ef fective for All Dates) Name:Samantha Rucker Starr Member ID:Not on file Relation to Subscriber:Not on file Name:SAMANTHA RUCKER Subscriber ID:Not on file Address: [address] [place] [address] Payer ID:Not on file Group ID:Not on file Type:Self Pay Address: [place], [place] * Guarantor: SAMANTHA RUCKER Account Type Relation to Patient Date of Phone Billing Address Personal/Family [address] [place], [place] [id number] [employer] SELF PAY NO INSURANCE Member Subscriber Plan / Payer (Ef fective for All Dates) Name:Samantha Rucker Starr Member ID:Not on file Relation to Subscriber:Not on file Name:ALKASAMANTHA Subscriber ID:Not on file Address: [address] [place], [place] [id number] Payer ID:Not on file Group ID:Not on file Type:Self Pay Address: [place], [place] * Guarantor: SAMANTHA RUCKER Account Type Relation to Patient Date of Phone Billing Address Personal/Family [address] [place] [address] [employer] SELF PA[employer] NO INSURANCE Member Subscriber Plan / Payer (Ef fective for All Dates) Name:Samantha Rucker Member ID:Not on file Relation to Subscriber:Not on file Name:SAMANTHA RUCKER Subscriber ID:Not on file Address: [address] [place] [id number] Payer ID:Not on file Group ID:Not on file Type:Self Pay Address: [place], [place] Care Teams Fire Protection Equipment Technician Relationship Specialty Start Date End Date Adrian Bryant MD [address] [place] [id number] PCP - General 11/25/20
--- OUTSIDE RECORDS SUMMARY | 2025-02-18 00:14 | XMS_ITS | Clinical Summary ---
Author Organization [address] Address [address] [place] [id number] Care Team Providers Care Inventory Manager Name Role Phone Dc Brooks MD Unavailable [phone] Caity Sanabria NP Unavailable [phone] Pamela Parekh MD Primary Care Provider [phone] Allergies Active Allergy Reactions Criticality Noted Date [...] 05/18/2021 Assessment & Plan (05/18/2021 3:13 PM SANDING MACHINE BUFFER): I did request the chest x-ray from [facility] in [place]. I have also ordered another [...] 11/05/2019 Assessment & Plan (05/18/2021 3:11 PM SANDING MACHINE BUFFER): The patient was once again encouraged to [...] complication Assessment & Plan (05/18/2021 3:11 PM SANDING MACHINE BUFFER): The patient was given sample of Breztri [...] Trelegy. Assessment & Plan (06/04/2019 10:51 AM SANDING MACHINE BUFFER): The patient did have significant improvement following bronchodilators. I will give her a trial of Symbicort 160/4.5 and albuterol MDI to see if this improves her symptoms. Shortness of breath 05/14/2019 Assessment & Plan (05/14/2019 8:43 AM SANDING MACHINE BUFFER): The patient quit smoking 2 months ago and smoked up to 1 pack of cigarettes a day for 27 years. With her dyspnea on exertion, I will check full PFTs and a 6 minute walk test. Other chest pain 05/14/2019 Assessment & Plan (06/04/2019 10:52 AM SANDING MACHINE BUFFER): I will hold off on a CT angiogram of the chest at this time since she felt like the chest pain improved after the nebulizer treatment. Assessment & Plan (05/14/2019 8:42 AM SANDING MACHINE BUFFER): The patient has had a previous cardiac [...] on file Legal Sex Female 9:08 PM SANDING MACHINE BUFFER Gender Identity Female 07/01/2021 12:01 PM CDT [...] patient's age to complete this topic Insurance [employer] OPEN ACCESS [employer] OPEN ACCESS [employer] OPEN ACCESS Care Teams Inventory Manager Relationship Specialty Start Date End Date Pamela Parekh MD PCP - General Family Medicine 09/04/23 Dc Brooks MD Obstetrics and Gynecology 05/14/19 Caity Sanabria NP Nurse Practitioner Nurse Practitioner 01/12/22
--- OUTSIDE RECORDS SUMMARY | 2025-02-18 03:47 | XMS_ITS | Clinical Summary ---
Author Organization [facility] Address [address] [place] [address] Care Team Providers Care Russian Teacher Name Role Phone Adrian Bryant MD Primary [...] patient's age to complete this topic Insurance [employer] OPEN ACCESS [facility] Care Teams Russian Teacher Relationship Specialty Start Date End Date Adrian Bryant MD PCP - General INTERNAL MEDICINE 01/11/22
--- OUTSIDE RECORDS SUMMARY | 2025-02-18 03:48 | XMS_ITS | Data Portability ---
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 I have advised [...] please contact patient to schedule 2024 025 [facility] [facility], [address], [place], [address], 5 10:40:31 physical therapist referral - Please contact patient to schedule 2023 024 [facility], [address] [place], [address], 4 14:05:22 Procedures injection/ aspiration joint/burs a [...] 2023 024 [facility], [facility] , [place], [address], 18:40:05 XR, lumbar spine 2023 024 [email or web address] [facility] [place], [address], [place], [address], 16:28:29 XR, shoulder, 2 or more view 2023 024 [email or web address] [facility] [place], [address], [place], [address], 4 12:48:55 XR, hand 2022 023 [email or web address] [facility] [place], [address], [place], [address], 3 10:54:47 Medication Orders prednisone 10 mg tablets in a dose pack [email or web address] [facility], [address] [place], [place], [id number], 5 10:26:01 bupivacain e HCl 0.5 % (5 mg/mL) injection solution [email or web address] [address] [facility]56230, [address] [place], [place], [id number], 4 15:43:21 Kenalog 10 mg/mL suspension for injection 2023 024 [email or web address] [facility], [address] [place], [place], [id number], 4 15:43:21 bupivacain e HCl 0.5 % (5 mg/mL) injection solution 2023 024 [email or web address] [facility] #46595, [address] [place], [place], [id number], 4 15:43:21 Kenalog 10 mg/mL suspension for injection 2023 024 [email or web address] [facility], [address] [place], [id number], 4 15:43:21 Kenalog 10 mg/mL suspension for injection [address] [facility] #58216, [address], [place], [place], [id number], 4 14:50:22 Marcaine 0.5 % (5 mg/mL) injection solution [address] [facility] #30109, [address], [place], [place], [id number], 4 14:50:44 Kenalog 10 mg/mL suspension for injection [address] [facility] #18423, [address] [place], [id number], 4 14:50:22 Marcaine (PF) 0.5 % (5 mg/mL) injection solution [address] [facility] #99156, [address] [place], [id number], 4 14:50:50 bupivacain e HCl 0.5 % (5 mg/mL) injection solution [address] [facility]25375, [address] [place], [place], [id number], 4 14:50:44 Kenalog 10 mg/mL suspension for injection [address] [facility] #18850, [address] [place], [id number], 4 14:50:22 Patient TargetsNo targets recorded. Patient [...] 6.8 x10'3 /uL 4.2-10 .8 Not Available [facility] (Lab) [address] [place], [address], 11/01/2022 14:27:30 11/02/19 23 11/01/2022 CBC/C OMPLE TE BLD COUNT W/DIF F red blood cells 5.06 x10'6 /uL 3.80-5 .20 Not Available [facility] (Lab) [address] [place], [address], 11/01/2022 14:27:30 11/02/19 23 11/01/2022 CBC/C OMPLE TE BLD COUNT W/DIF F hemoglobin 14.9 g/dL 12.0-1 5.6 Not Available [facility] (Lab) [address] [place], [address], 11/01/2022 14:27:30 11/02/19 23 11/01/2022 CBC/C OMPLE TE BLD COUNT W/DIF F hematocrit 43.6 % 35.7-4 5.7 Not Available [facility] (Lab) [address] [place], [address], 11/01/2022 14:27:30 11/02/19 23 11/01/2022 CBC/C OMPLE TE BLD COUNT W/DIF F mean red cell volume 86.2 fL 82.0-9 9.0 Not Available [facility] (Lab) [address] [place], [address], 11/01/2022 14:27:30 11/02/19 23 11/01/2022 CBC/C OMPLE TE BLD COUNT W/DIF F mean red cell hemoglobin 29.4 pg 27.0-3 3.0 Not Available [facility] (Lab) [address] [place], [address], 11/01/2022 14:27:30 11/02/19 23 11/01/2022 CBC/C OMPLE TE BLD COUNT W/DIF F mean RBC HGB concentratio n 34.2 g/dL 31.0-3 6.0 Not Available [facility] (Lab) [address] [place], [address], 11/01/2022 14:27:30 11/02/19 23 11/01/2022 CBC/C OMPLE TE BLD COUNT W/DIF F red cell distribution width 11.9 % 11.8-1 5.5 Not Available [facility] (Lab) [address] [facility] [place], [address], 11/01/2022 14:27:30 11/02/19 23 11/01/2022 CBC/C OMPLE TE BLD COUNT W/DIF F platelets 310 x10'3 /uL 150-40 0 Not Available [facility] (Lab) [address] [place], [address], 11/01/2022 14:27:30 11/02/19 23 11/01/2022 CBC/C OMPLE TE BLD COUNT W/DIF F mean platelet volume 10.5 fL 9.0-12 .4 Not Available [facility] (Lab) [address] [place], [address], 11/01/2022 14:27:30 11/02/19 23 11/01/2022 CBC/C OMPLE TE BLD COUNT W/DIF F neutrophils 57.4 % 39.0-7 2.0 Not Available [facility] (Lab) [address] [place], [address], 11/01/2022 14:27:30 11/02/19 23 11/01/2022 CBC/C OMPLE TE BLD COUNT W/DIF F lymphocytes 32.2 % 16.0-4 7.0 Not Available [facility] (Lab) [address] [place], [address], 11/01/2022 14:27:30 11/02/19 23 11/01/2022 CBC/C OMPLE TE BLD COUNT W/DIF F monocytes 7.9 % 5.0-12 .0 Not Available [facility] (Lab) [address] [place], [address], 11/01/2022 14:27:30 11/02/1911/01/2022 CBC/C OMPLE TE BLD COUNT W/DIF F eosinophils 0.9 % 1.0-7. 0 low Not Available [facility] (Lab) [address] [place], [address], 11/01/2022 14:27:30 11/02/19 23 11/01/2022 CBC/C OMPLE TE BLD COUNT W/DIF F basophils 1.0 % 0.0-2. 0 Not Available [facility] (Lab) [address] [place], [address], 11/01/2022 14:27:30 11/02/19 23 11/01/2022 CBC/C OMPLE TE BLD COUNT W/DIF F immature granulocytes 0.6 % 0.00-0 .50 high Not Available [facility] (Lab) [address] [place], [address], 11/01/2022 14:27:30 11/02/19 23 11/01/2022 CBC/C OMPLE TE BLD COUNT W/DIF F neutrophils, absolute count 3.92 x10'3 /uL 1.5-8. 0 Not Available [facility] (Lab) [address] [place], [address], 11/01/2022 14:27:30 11/02/19 23 11/01/2022 CBC/C OMPLE TE BLD COUNT W/DIF F lymphocytes, absolute count 2.20 x10'3 /uL 1.07-3 .43 Not Available [facility] (Lab) [address] [place], [address], 11/01/2022 14:27:30 11/02/1911/01/2022 CBC/C OMPLE TE BLD COUNT W/DIF F monocytes, absolute count 0.54 x10'3 /uL 0.29-0 .99 Not Available [facility] (Lab) [address] [place], [address], 11/01/2022 14:27:30 11/02/19 23 11/01/2022 CBC/C OMPLE TE BLD COUNT W/DIF F eosinophils, absolute count 0.06 x10'3 /uL 0.02-0 .53 Not Available [facility] (Lab) [address] [place], [address], 11/01/2022 14:27:30 11/02/19 23 11/01/2022 CBC/C OMPLE TE BLD COUNT W/DIF F basophils, absolute count 0.07 x10'3 /uL 0.01-0 .08 Not Available [facility] (Lab) [address] [place], [address], 11/01/2022 14:27:30 11/02/1911/01/2022 CBC/C OMPLE TE BLD COUNT W/DIF F immature granulocytes ,absolute 0.04 x10'3 /uL 0.00-0 .05 Not Available [facility] (Lab) [address] [place], [address], 11/01/2022 14:27:30 11/02/19 23 11/01/2022 CBC/C OMPLE TE BLD COUNT W/DIF F nucleated red blood cells 0.0 % -0 Not Available [facility] (Lab) [address] [place], [address], 11/01/2022 14:27:30 11/02/19 23 11/01/2022 CBC/C OMPLE TE BLD COUNT W/DIF F NRBC# 0.00 x10'3 /uL Not Available [facility] (Lab) [address] [place], [address], 11/01/2022 14:27:30 11/02/19 23 11/01/2022 IRON/ TIBC PANEL total iron binding capacity 352 mcg/d L 265-47 5 Not Available [facility] (Lab) [address] [place], [address], 11/01/2022 14:50:22 11/02/19 23 11/01/2022 IRON/ TIBC PANEL % transferrin saturation 34 % 20-55 Not Available [facility] (Lab) [address] [place], [address], 11/01/2022 14:50:22 11/02/19 23 11/01/2022 IRON/ TIBC PANEL unsaturated iron bind capacity 231 mcg/d L 126-38 2 Not Available [facility] (Lab) [address] [place], [address], 11/01/2022 14:50:22 11/02/19 23 11/01/2022 IRON/ TIBC PANEL iron 121 mcg/d L 42-175 Not Available [facility] (Lab) [address] [place], [address], 11/01/2022 14:50:22 11/02/19 23 11/01/2022 COMPR EHENS ESTUARDO METAB OLIC PANEL sodium 136 mmol/ L 137-14 5 low Not Available [facility] (Lab) [address] [place], [address], 11/01/2022 14:49:29 11/02/19 23 11/01/2022 COMPR EHENS ESTUARDO METAB OLIC PANEL potassium 4.5 mmol/ L 3.5-5. 1 Not Available [facility] (Lab) [address] [place], [address], 11/01/2022 14:49:29 11/02/19 23 11/01/2022 COMPR EHENS ESTUARDO METAB OLIC PANEL chloride 103 mmol/ L 98-107 Not Available [facility] (Lab) [address] [place], [address], 11/01/2022 14:49:29 11/02/19 23 11/01/2022 COMPR EHENS ESTUARDO METAB OLIC PANEL carbon dioxide 26 mmol/ L 22-30 Not Available [facility] (Lab) [address] [place], [address], 11/01/2022 14:49:29 11/02/19 23 11/01/2022 COMPR EHENS ESTUARDO METAB OLIC PANEL anion gap 11.5 mmol/ L 14-22 low Not Available [facility] (Lab) [address] [place], [address], 11/01/2022 14:49:29 11/02/19 23 11/01/2022 COMPR EHENS ESTUARDO METAB OLIC PANEL glucose 95 mg/dL 70-99 Not Available [facility] (Lab) [address] [place], [address], 11/01/2022 14:49:29 11/02/19 23 11/01/2022 COMPR EHENS ESTUARDO METAB OLIC PANEL BUN 14 mg/dL 8-19 Not Available [facility] (Lab) [address] [place], [address], 11/01/2022 14:49:29 11/02/19 23 11/01/2022 COMPR EHENS ESTUARDO METAB OLIC PANEL creatinine 0.89 mg/dL 0.66-1 .25 Not Available [facility] (Lab) [address] [place], [address], 11/01/2022 14:49:29 11/02/19 23 11/01/2022 COMPR EHENS ESTUARDO METAB OLIC PANEL GFR >60 Refer ence Range : [place] ge GFR Healt hy Adult : >60 [...] calcu lator is avail able on the [facility] websi te: https ://ww w.kid li.o rg/pr ofess ional s/kdo qi/gf r_cal culat or Not Available [facility] (Lab) [address] [place], [address], 11/01/2022 14:49:29 11/02/19 23 11/01/2022 COMPR EHENS ESTUARDO METAB OLIC PANEL alkaline phosphatase 59 U/L 38-126 Not Available [facility] (Lab) [address] [place], [address], 11/01/2022 14:49:29 11/02/19 23 11/01/2022 COMPR EHENS ESTUARDO METAB OLIC PANEL alanine aminotransfe rase 24 U/L 0-35 Not Available [facility] (Lab) [address] [place], [address], 11/01/2022 14:49:29 11/02/19 23 11/01/2022 COMPR EHENS ESTUARDO METAB OLIC PANEL aspartate aminotransfe rase 27 U/L 15-37 Not Available [facility] (Lab) [address] [place], [address], 11/01/2022 14:49:29 11/02/19 23 11/01/2022 COMPR EHENS ESTUARDO METAB OLIC PANEL bilirubin, total 0.50 mg/dL 0.20-1 .30 Not Available [facility] (Lab) [address] [place], [address], 11/01/2022 14:49:29 11/02/19 23 11/01/2022 COMPR EHENS ESTUARDO METAB OLIC PANEL calcium 9.4 mg/dL 8.4-10 .2 Not Available [facility] (Lab) [address] [place], [address], 11/01/2022 14:49:29 11/02/19 23 11/01/2022 COMPR EHENS ESTUARDO METAB OLIC PANEL total protein 7.1 g/dL 6.3-8. 2 Not Available [facility] (Lab) [address] [place], [address], 11/01/2022 14:49:29 11/02/19 23 11/01/2022 COMPR EHENS ESTUARDO METAB OLIC PANEL albumin 4.2 g/dL 3.4-5. 0 Not Available [facility] (Lab) [address] [place], [address], 11/01/2022 14:49:29 11/02/19 23 11/01/2022 COMPR EHENS ESTUARDO METAB OLIC PANEL globulin 2.9 g/dL 2.6-4. 2 Not Available [facility] (Lab) [address] [place], [address], 11/01/2022 14:49:29 11/02/19 23 11/01/2022 COMPR EHENS ESTUARDO METAB OLIC PANEL A/G ratio 1.4 ratio 1.0-2. 0 Not Available [facility] (Lab) [address] [place], [address], 11/01/2022 14:49:29 11/02/19 23 11/01/2022 VITAM IN B12 (HARIS DONAVON ) vb12 754 pg/mL 239-93 1 Not Available [facility] (Lab) [address] [place], [address], 11/01/2022 16:26:25 11/02/19 23 11/01/2022 FOLAT E, SERUM /PLAS MA folate 13.3 NG/mL 2.76-2 0.0 Not Available [facility] (Lab) [address] [place], [address], 11/01/2022 16:26:27 11/02/19 23 11/01/2022 VITAM IN D 25-HY DROXY vd25oh 56.4 NG/mL 30-100 Vitam in D Statu s: Defic ient: <20 ng/mL Insuf ficie nt: 20-29 ng/mL Suffi cient : 30-10 0 ng/mL Not Available [facility] (Lab) [address] [place], [address], 11/01/2022 15:48:43 11/02/19 23 11/01/2022 T3 FREE free T3 3.2 pg/mL 2.77-5 .27 Not Available [facility] (Lab) [address] [place], [address], 11/01/2022 15:03:02 11/02/19 23 11/01/2022 T4 FREE free T4 0.92 NG/dL 0.78-2 .19 Not Available [facility] (Lab) [address] [place], [address], 11/01/2022 15:03:03 11/02/19 23 11/01/2022 TSH thyroid-stim ulating hormone 1.650 uIU/m L 0.465- 4.680 Not Available [facility] (Lab) [address] [place], [address], 11/01/2022 15:10:34 11/02/19 23 11/01/2022 BLANE TIN ferritin 27 NG/mL 6.24-1 37 Not Available [facility] (Lab) [address] [place], [address], 11/01/2022 15:11:10 08/11/19 23 XR, hand No observ ation record ed. [email or web address] [facility] [place] [address] [facility] [place], [address], 08/10/2022 09:54:24 04/09/19 24 XR, shoul brenda, 2 or more view No observ ation record ed. [email or web address] [facility] [place] [address] [facility] [address], [address], 04/09/2023 12:48:53 06/07/19 24 XR, lumba r spine No observ ation record ed. [email or web address] [facility] [place] [address] [facility] [address] [place], [address], 06/07/2023 14:11:44 10/02/19 24 MRI, shoul brenda, w/o contr ast [facility] [address] [place] [address] [phone] Patien t Name: SAMANTHA RUCKER Access ion #: [id number] Sex: F : 1980 8 Dictat [...] 1 [facility] [address] [place] [address] [phone] Patien t Name: SAMANTHA RUCKER Access ion #: [id number] Sex: F : 1980 8 Dictat ed By: Adrien gramajo Attend ing Physic darrell: ADWOA SEGOVIA [facility] Physic darrell: JULIETTE ORONA Exam Date: 2023 12:46 PM Exam Name: MRI SHOULD ER RT WO Admitt ing Diagno sis(es ): supras pinatu s tendon . 2. Mild acromi oclavi cular hypert rophy with mild-t o-mode rate subacr omial / subdel toid bursit is. Electr onical ly Signed by: Adrien gramajo at 2023 15:37: 54 PM Page 2 [facility] (Imaging) [address] [place], [address], 10/03/2023 09:59:39 Result Notes Documentation Provider Name and Address Organization Details Recorded Time Mri, Shoulder, W/o Contrast : [facility] [address] [place] [address] Patient Name: SAMANTHA RUCKER Sex: F : [...] joint: There is mild acromioclavicular hypertrophy and ydwt-ui-ezmrdskm edema. There is type 1 acromion. Small [...] surface fraying in the distal Page [address] [address] Patient Name: SAMANTHA RUCKER Sex: F : 1980 Dictated By: Roosevelt Taylor Attending Physician: ADWOA SEGOVIA Ordering Physician: JULIETTE ORONA Exam Date: 10/02/2023 12:46 PM Exam Name: MRI SHOULDER RT WO Admitting Diagnosis(es): supraspinatus tendon. 2. Mild acromioclavicular hypertrophy with udbw-cm-ybmofjyd subacromial / subdeltoid bursitis. Page 2 RUKHSANA [place], [place] [employer] [facility] 10/03/2023 09:59:39 Problems Name Problem SNOMED Code Status Onset Date Resolution Date Notes Provider Name and Address Organization Details Recorded Time Hyperchole sterolemia 82045939 Active Not Available [facility] 3 00:48:03 Dry skin 92681572 Active Not Available [facility] 3 00:48:03 Asthma 006040396 Active Not Available [facility] 3 00:48:04 Abdominal pain 83775911 Active Not Available [facility] 3 00:48:04 Headache 87188310 Active Not Available [facility] 3 00:48:04 Depressive disorder 94008429 Active Not Available [facility] 3 00:48:04 Onychomyco sis 186278530 Active Not Available [facility] 3 00:48:04 Unintentio nal weight loss 470220359 Active Not Available [facility] 3 00:48:04 Gastritis 1198935 Active Not Available [facility] 3 00:48:04 Anxiety 38276819 Active Not Available [facility] 3 00:48:04 Diarrhea 44959957 Active Not Available [facility] 3 00:48:04 Inflammati on of sacroiliac joint 05501600 Active 2019 Not Available [facility] 3 00:48:04 Thyroid nodule 006045120 Active 2021 Not Available [facility] 3 00:48:04 Hypoglycem ia 273621125 Active 2021 Not Available [facility] 3 00:48:04 Vitamin D deficiency 56183819 Active 2021 Not Available [facility] 3 00:48:04 Vitamin B12 deficiency (non anemic) 84103299 Active 2021 Not Available [facility] 3 00:48:05 Tinea pedis 5300874 Active 2021 Not Available [facility] 3 00:48:04 Iron deficiency 72874890 Active 2021 Not Available [facility] 3 00:48:04 Pain of sacroiliac joint 442890037 Active 2022 Padma Angulo [employer] null, [place] [facility] [employer] [facility] 3 09:19:42 Low back pain 813354828 Active 2022 Padma Angulo [employer] null, [place] [facility] [place] [facility] 3 09:19:51 Pain of multiple joints 73688935 Active 2022 Padma Angulo [employer] null, [place] [facility] [place] [facility] 3 09:20:00 Pain of left hand 2418873301232 03 Active 2022 Pamda Angulo [employer] null, [place] [facility] [place] [facility] 3 09:20:42 Sprain of interphala ngeal joint of finger 15518258 Active 2022 NELI Morse [address] [facility], [place] [address], [place], [address] , [place] [facility] [place] [facility] 3 09:55:28 Pain of right shoulder joint 5525013927924 9100 Active 2023 Padma Angulo, RUKHSANA null, [place] [employer] [facility] 4 11:57:58 Tendinitis of right rotator cuff 9001310122007 9104 Active 2023 NELI Morse [address] [facility], [place], [address] , [facility] [employer] [facility] 4 12:49:07 Impingemen t syndrome of right shoulder region 2569234098829 02 Active 2024 NELI Morse [address] [facility], [place], [address] , [facility] [employer] [facility] [employer] [facility] 5 10:25:02 Notes:herpes Problem Notes None recorded. Procedures Surgical History Date Name Laterality Status Provider Name and Address Organization Details Recorded Time Cholecystectomy completed Not Available [employer] 05/31/2022 00:43:48 Ablation completed Not Available [facility] 00:43:48 Removal of ovarian cyst(s) completed Not Available [facility] 05/31/2022 00:43:48 Hysterectomy completed Not Available [employer] 05/31/2022 00:43:48 Imaging Results None recorded. Procedure Notes None recorded. Medical Equipment None Reported. Allergies Allergen ID Allergen Name Allergen Category Reaction Reaction Severity Criticality Documentation Date Start Date Code Code System Note Provider Name and Address Organization Details Recorded Time 460 pravastat in medicatio n Not available Not available Not available 05/31/2022 06827 RxNorm Not Available [facility] 3 00:52:27 461 Dilaudid medicatio n Not available Not available Not available 05/31/2022 73113 3 RxNorm Not Available [facility] 3 00:52:27 462 codeine medicatio n Not available Not available Not available 05/31/2022 2670 RxNorm Not Available [facility] 3 00:52:27 Medications Name [...] mg by injection route. 2023 active [facility]: 0003- 0494- 20 Not Available Not [...] red by the provider 06/01 completed [facility]: 0409- 4276- 17 Not Available Not [...] Updated DateTime 04/03/2024 157.48 cm 21.9 kg/m2 42915.08 g [employer], [employer] 04/03/2024 09:44:34 Date Recorded Body height Body mass index (BMI) Body weight Provider Name and Address Organization Details Last Updated DateTime 04/09/2023 157.48 cm 24.7 kg/m2 85443.97 g [employer], [employer] 04/09/2023 11:57:33 Date Recorded Body height Body mass index (BMI) Body weight Provider Name and Address Organization Details Last Updated DateTime 06/07/2023 157.48 cm 25.6 kg/m2 76993.93 g [employer], [employer] 06/07/2023 13:28:18 Date Recorded Body height Body mass index (BMI) Body weight Provider Name and Address Organization Details Last Updated DateTime 08/10/2022 157.48 cm 23.8 kg/m2 13686.01 g [employer], [employer] [facility] [employer] [facility] 08/10/2022 09:13:48 Date Recorded Body height Body mass index (BMI) Body weight Provider Name and Address Organization Details Last Updated DateTime 09/07/2023 157.48 cm 23.8 kg/m2 55672.01 eliu Bhatt [place] [employer] 09/07/2023 14:48:16 Social History Question Answer Notes LastModified by [employer] Details LastModified Time Tobacco Smoking Status Current Every Day Smoker Not Available [facility] 05/31/2022 00:42:34 What Is Your Level Of Caffeine Consumption? None [id number] Information not available 05/31/2022 In The 14 Days Before Symptom Onset, Have You Had Close Contact With A Laboratory-confirm ed COVID-19 While That Case Was Ill? No [id number] Information not available 05/31/2022 In The 14 Days Before Symptom Onset, Have You Had Close Contact With A Person Who Is Under Investigation For COVID-19 While That Person Was Ill? No [id number] Information not available 05/31/2022 What Type Of Diet Are You Following? REGULAR [id number] Information not available 05/31/2022 Have You Ever Been Counseled For Unhealthy Alcohol Use? No [id number] Information not available 05/31/2022 What Is Your Relationship Status? [id number] Information not available 05/31/2022 How Much Tobacco Do You Smoke? 0.5 PPD Information not available 08/10/2022 How Many Years Have You Smoked Tobacco? 20 [id number] Information not available 05/31/2022 Have You Recently Traveled Abroad? No [id number] Information not available 05/31/2022 Do You Have Any Dietary Restrictions? No [id number] Information not available 05/31/2022 Sex: Female Functional Status Question Answer Note LastModified by [employer] Details LastModified Time Do you use any illicit or recreational drugs? No [id number] Information not available 05/31/2022 What is your level of alcohol consumption? 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 Family History Relationship Description Onset Age of this Age Resolved Age Notes LastModified by Organization Details LastModified Time Mother Heart disease self [email or web address] Not available 2023 14:51:51 Mother Diabetes mellitus [id number] Not available 05/31/2022 00:43:51 Maternal Grandfather Acute stroke MIGRATION.0 30 [id number] Not available 05/31/2022 00:43:51 Medical History Condition [...] ICD10 Code Diagnosis IMO Codes Diagnosis Note [id number] NELI Morse [facility] [address] [place] [address] 06/01/2020 00:00:00 06/01/2020 15:52:37 [id number] NELI Morse [facility] [address] [place] [address] 08/03/2020 00:00:00 08/03/2020 15:55:30 [id number] NELI Morse [facility] [address] [place] [address] 11/15/2020 00:00:00 11/15/2020 11:27:46 [id number] NELI Morse [facility] [address] [place] [address] 01/13/2021 00:00:00 01/13/2021 11:40:53 [id number] Thong Fragoso MD [facility] [address] [place] [address] 06/01/2021 00:00:00 06/01/2021 09:58:34 [id number] [facility] [address] [place] [address] 06/27/2021 00:00:00 06/27/2021 17:14:27 [id number] [facility] [address] [place] [address] 08/25/2021 00:00:00 08/25/2021 18:48:59 [id number] Thong Fragoso MD [facility] [address] [place] [address] 09/12/2021 00:00:00 09/12/2021 11:37:10 [id number] [facility] [address] [place] [address] 09/27/2021 00:00:00 09/27/2021 18:35:43 [id number] [facility] [address] [place] [address] 01/27/2022 00:00:00 01/27/2022 14:02:25 [id number] Thong Fragoso MD [facility] [address] [place] [address] 08/10/2022 09:02:08 08/10/2022 10:54:47 Pain of sacroiliac joint [id number] M53.3 Low back pain [id number] M54.50 Pain of mu ltiple joints 03254163 M25.50 Pain of left hand 865394 9237 94552 M79.642 Sprain of interphalangeal joint of finger 00880089 S63.631A [id number] Baron Rousseau MD [facility] [address] [place] [address] 04/09/2023 11:52:44 04/09/2023 12:41:54 Pain of right shoulder joint [id number] 5003252 M25.511 Tendinitis of right rotator cuff 5448794996 9400162 M67.838 [id number] Lazaro Lopez MD [facility] [address] [place] [address] 06/07/2023 13:23:59 06/07/2023 15:02:47 Pain of right shoulder joint [id number] 0175844 M25.511 Tendinitis of right rotator cuff 1311147356 7458266 M67.813 Low back pain 132108297 M54.50 Pain of sa croiliac joint 811338443 M53.3 [id number] Lazaro Lopez MD [facility] [address] [place] [address] 09/07/2023 14:32:10 09/07/2023 15:25:32 Pain of right shoulder joint [id number] 8967872 M25.511 Tendinitis of right rotator cuff 0415640041 2154801 M67.813 Pain of sa croiliac joint 963479558 M53.3 [id number] Lazaro Lopez MD [facility] [address] [place] [address] 04/03/2024 09:39:54 04/03/2024 10:28:08 Pain of right shoulder joint 0729097228 0898263 M25.511 Tendinitis of right rotator cuff 0849754501 6538620 M67.813 Impingemen t syndrome of right shoulder region 6936505474 56156 M75.41 [id number] Keren Smith NP [facility] [address] [address] 04/24/2024 10:05:04 04/24/2024 14:01:05 [id number] Keren Smith NP [facility] [address] [address] 06/16/2024 12:18:54 06/16/2024 14:28:00 Health Concerns Section Related Observation LastModified by Organization Detai ls LastModified Time None Recorded Concern Status LastModified by Organization Details LastModified Time None Recorded Advance Directives Directive None Recorded Payers Insurance Date Sequence Insurance Name Policy Number Policy Escamilla Covered Member ID Escamilla Member ID Guarantor Name 12/24/2024 1 [facility] [place] [facility] [employer] - OPEN ACCESS III (PPO) [id number] Samantha Rucker [id number] Samantha Rucker Notes Date Note Type Note [...] today with the patient. NELI Morse [address] [facility], [facility] [address], [place], [address], [facility] [employer] 08/10/2022 09:55:58 04/09/2023 text/html patient returns today with a new problem. She has right shoulder pain ongoing for about a year. Over the past 2-3 months it has been much worse she described occasional aching pzuf-wa-abrbuert pain that radiate into the upper arm [...] a scale 1-10 some days. NELI Morse [address] [place] [address], [facility] [address], [place], [address], [place] [facility] [employer] 04/09/2023 12:49:41 06/07/2023 text/html Patient returns complaining [...] these medications. NELI Morse [address], [facility] [address], [place], [address], [place] [facility] [employer] 06/07/2023 14:16:22 09/07/2023 text/html Patient returns with [...] NELI Morse [address], [place], [address], [employer] 09/07/2023 16:05:09 04/03/2024 text/html the patient returns [...] symptoms with it. She has seen a channel program manager he put her on Celebrex for [...] if necessary. NELI Morse [address], [facility] [address], [place], [address], [employer] 04/03/2024 10:25:59 OBGyn Episode No OBEpisode recorded.
== END 2025-02-17 16:53 | disposition home or self-care (01) ==
PROVIDERS: Emergency Provider Student in an Organized Health Care Education/Training Program; PCP Student in an Organized Health Care Education/Training Program
DX: G25.81 Restless legs syndrome (principal); F17.210 Nicotine dependence, cigarettes, uncomplicated; M79.7 Fibromyalgia; F41.9 Anxiety disorder, unspecified; G47.30 Sleep apnea, unspecified; K21.9 Gastro-esophageal reflux disease without esophagitis; J45.909 Unspecified asthma, uncomplicated
CPT/HCPCS: 96372; 99283; J1885